=== PATIENT | male | born 1940 | race Caucasian/White ===

== ENCOUNTER 2018-06-01 21:53 | Emergency (ER) | payer OTHER ==
[2018-06-01] MEDS ORDERED: MORPHINE 4 MG/ML SYR ONE (22:21)
[2018-06-01] MEDS ORDERED: FAMOTIDINE 20 MG/2 ML VIAL IV ONE (22:21)
[2018-06-01] MEDS ORDERED: NA CHLORIDE 0.9% 500 ML ONE (22:21)
[2018-06-01] MEDS ORDERED: ONDANSETRON 4 MG/2 ML VIAL ONE (22:21)
[2018-06-01 22:26] LABS: Absolute Lymphocytes (CBC) 0.8 K/uL (0.7-4.9); Absolute Monocytes 0.5 K/uL (0.1-1.3); Absolute Neutrophil 6.6 K/uL (1.8-8.0); Basophils % 0.4 % (0-1.3); Eosinophils % 0.3 % (0-4.4); Hematocrit 35.7 % (39.6-49.0); Lymphocytes % 9.6 % (15.3-44.8); MCH 32.4 pg (27.0-35.0); MCV 90.8 fL (80-100); MPV 6.7 fL (7.6-11.3); Monocytes % 6.2 % (3.3-12.3); RBC Red Blood Cell Count 3.94 M/uL (4.33-5.43)
[2018-06-01 22:44] LABS: Albumin 3.7 g/dL (3.4-5.0); Bilirubin Direct 0.2 mg/dL (0-0.2); Bilirubin Total 0.7 mg/dL (0.2-1.0); Potassium 3.2 mmol/L (3.5-5.1)
[2018-06-01] MEDS ORDERED: cloNIDine HCl 0.1 MG TAB ONE (23:41)
--- NOTE | 2018-06-02 01:42 | ER ---
Nurse's Notes [facility] Name: Tomer Mckeon Age: 78 yrs Sex: Male : 1940 Arrival Date: 06/01/2018 Time: 21:55 Bed 20 Private MD: Diagnosis: Small bowel obstruction Presentation: 06/01 22:07 Presenting complaint: Patient states: he has had vomiting and abdominal pain all bb afternoon and his blood pressure is elevated. Transition of care: patient was not received from another setting of care. Onset of symptoms was June 01, 2018. Risk Assessment: Do you want to hurt yourself or someone else? Patient reports no desire to harm self or others. Initial Sepsis Screen: Does the patient meet any 2 criteria? No. Patient's initial sepsis screen is negative. Does the patient have a suspected source of infection? No. Patient's initial sepsis screen is negative. Care prior to arrival: None. 22:07 Method Of Arrival: Ambulatory bb 22:07 Acuity: PHUONG 2 bb Historical: - Allergies: 22:29 HYDRALAZINE; bb - Home Meds: 22:27 Clonidine Oral [Active]; zolpidem 10 mg Oral tab 1 tab once daily [Active]; Vesicare 5 bb mg oral tab 1 tab once daily [Active]; hydrocodone-acetaminophen 7.5-325 mg Oral tab daily [Active]; amlodipine 5 mg tab 1 tab once daily [Active]; furosemide 40 mg Oral tab 1 tab once daily [Active]; Klor-Con M20 20 mEq Oral TbTQ 1 tab 2 times per day [Active]; folic acid 800 mcg Oral tab 1 tab once daily [Active]; vit C 1000 mg [Active]; tramadol 50 mg Oral tab 1 tab daily [Active]; nortriptyline 25 mg Oral cap 1 cap nightly [Active]; azelastine 137 mcg (0.1 %) nasal spra 2 sprays 2 times per day [Active]; Linzess 290 mcg oral cap 1 cap once daily [Active]; calcium 1200 mg with Vit D 25 mcg daily [Active]; probiotic CD [Active]; valsartan 320 mg oral tab 1 tab once daily [Active]; metoprolol succinate 50 mg oral Tb24 1 tab once daily [Active]; potassium chloride 20 mEq Oral TbER 1 tab 2 times per day [Active]; omeprazole 40 mg Oral cpDR 1 cap 2 times per day [Active]; tamsulosin 0.4 mg oral cp24 2 caps once daily [Active]; Slow Release Iron oral oral [Active]; flecainide 150 mg oral tab [Active]; magnesium 500 mg daily [Active]; sucralfate 1 gram Oral tab 1 tab 4 times per day [Active]; gabapentin 600 mg oral tab 2 tab 3 times per day [Active]; fludrocortisone 0.1 mg oral tab 1 tab once daily [Active]; finasteride 5 mg oral tab 1 tab once daily [Active]; B12 1000 mcg daily [Active]; - PMHx: 06/02 02:25 Hypertension; neuropathy; gastroparesis; lung cancer; bb - PSHx: 02:25 gastric ulcer surgery; Hernia repair; Cholecystectomy; giant fistula; hydrocele R bb testicle; - Immunization history:: Adult Immunizations up to date. - Social history:: Smoking status: Patient/guardian denies using tobacco, Patient/guardian denies using alcohol, street drugs. - Ebola Screening: : No symptoms or risks identified at this time. Screenin/15 22:34 Abuse screen: Denies threats or abuse. Denies injuries from another. Nutritional bs1 screening: No deficits noted. Tuberculosis screening: No symptoms or risk factors identified. Fall Risk None identified. Assessment: 22:31 General: Appears uncomfortable, ill, slender, Behavior is calm, cooperative, bs1 appropriate for age. Pain: Complains of pain in abdomen diffusely. Neuro: Level of Consciousness is awake, alert, obeys commands, Oriented to person, place, time, situation, Appropriate for age. Cardiovascular: Denies chest pain, shortness of breath, Heart tones S1 S2 present Capillary refill < 3 seconds Patient's skin is warm and dry. Respiratory: Airway is patent Trachea midline Respiratory effort is even, unlabored, Respiratory pattern is regular, symmetrical, Breath sounds are clear bilaterally. GI: Abdomen is round non-distended, Pt is actively vomiting bile, Bowel sounds hypoactive in right upper quadrant, left upper quadrant, right lower quadrant and left lower quadrant Abdomen is tender to palpation X 4 quads. Reports lower abdominal pain, upper abdominal pain, nausea, vomiting. : No signs and/or symptoms were reported regarding the genitourinary system. Derm: Skin is intact. Musculoskeletal: Circulation, motion, and sensation intact. Capillary refill < 3 seconds. 23:15 Reassessment: Patient states "I feel a lot better from that morphine." No further bs1 vomiting of bile noted at this time. 23:40 Reassessment: Informed Dr Garcia of Blood pressure of 209/73, gave verbal order to bs1 give clonodine 0.2mg PO x1. 06/02 00:30 Reassessment: pending CT scan results. No further needs at this time. Blood pressure bs1 trending down. 01:30 Reassessment: Patient appears in no apparent distress at this time. Patient and/or bs1 family updated on plan of care and expected duration. Pain level reassessed. Patient is alert, oriented x 3, equal unlabored respirations, skin warm/dry/pink. Dr Garcia at bedside informing patient and family of CT results/POC. 02:30 Reassessment: Requested pain meds for patient prior to NG tube insertion on 2nd bs1 attempt. Morphine 4mg IVP verbal order per Dr Garcia. 03:45 Reassessment: Report given to JOY Bateman at [facility]. Patient will bs1 be going to room [address] [place] [address]. 04:45 Reassessment: Patient appears in no apparent distress at this time. Patient and/or bs1 family updated on plan of care and expected duration. Pain level reassessed. Patient is alert, oriented x 3, equal unlabored respirations, skin warm/dry/pink. Pending transfer to [facility]. Patient denies pain at this time. Patient states feeling better. 05:21 Reassessment: Patient appears in no apparent distress at this time. Patient leaving ER, bs1 administered 4mg Zofran prior to discharge. Vital Signs: 06/01 22:07 BP 244 / 96; Pulse 94; Resp 20 S; Temp 97.8(O); Pulse Ox 100% on R/A; Weight 90.72 kg bb (R); Height 6 ft. 2 in. (187.96 cm) (R); Pain 10/10; 22:59 BP 223 / 78; Pulse 78; Resp 25 S; Pulse Ox 99% on R/A; bs1 23:34 BP 209 / 73; Pulse 78; Resp 20 S; Pulse Ox 99% on R/A; bs1 07/16 00:30 BP 145 / 188; Pulse 84; Resp 16; Pulse Ox 99% on R/A; bs1 01:00 BP 178 / 69; Pulse 85; Resp 18; Pulse Ox 99% on R/A; bs1 01:30 BP 153 / 63; Pulse 88; Resp 18; Pulse Ox 100% on R/A; bs1 02:30 BP 145 / 65; Pulse 81; Resp 18; Temp 98(O); Pulse Ox 100% on R/A; Pain 7/10; bs1 03:30 BP 114 / 54; Pulse 79; Resp 19; Temp 98(O); Pulse Ox 97% on R/A; Pain 4/10; bs1 04:30 BP 117 / 55; Pulse 74; Resp 18; Pulse Ox 99% on R/A; bs1 06/01 22:07 Body Mass Index 25.68 (90.72 kg, 187.96 cm) bb ED Course: 06/01 21:55 Patient arrived in ED. es 22:02 Rodney Garcia MD is Attending Physician. kdr 22:06 Flory Goldsmith RN is Primary Nurse. bs1 22:07 Triage completed. bb 22:07 Arm band placed on Patient placed in an exam room, on a stretcher, on pulse oximetry. bb Family accompanied patient. 22:23 Missed attempt(s): 20 gauge in right antecubital area. Inserted saline lock: 20 gauge lp1 in left antecubital area, using aseptic technique. Blood collected. 22:34 Patient has correct armband on for positive identification. Placed in gown. Bed in low bs1 position. Call light in reach. Side rails up X 1. athletic monitor on. Pulse ox on. NIBP on. Warm blanket given. 23:[address] via stretcher. kw1 06/02 00:09 CT completed. Patient tolerated procedure well. Patient moved back from CT. kw1 00:17 CT Abd/Pelvis - W/Contrast In Process Unspecified. EDMS 02:15 NGT: inserted 12 Fr. via right nare. Removed Unable to verify tube placement. NG tube bs1 removed. Unsuccessful. 02:37 NGT: inserted 12 Fr. via right nare. verified placement of air over stomach, verified bs1 return of gastric contents, to intermittent suction. Patient tolerated Inserted By ALTAGRACIA Nye. 05:00 No provider procedures requiring assistance completed. Patient transferred, IV remains bs1 in place. intact. Administered Medications: 06/01 22:29 Drug: NS 0.9% 500 ml Route: IV; Rate: bolus; Site: left antecubital; bs1 06/02 02:58 Follow up: IV Status: Completed infusion bs1 06/01 22:30 Drug: morphine 4 mg Route: IVP; Site: left antecubital; bs1 06/02 01:29 Follow up: Response: No adverse reaction bs1 06/01 22:30 Drug: Zofran 4 mg Route: IVP; Site: left antecubital; bs1 06/02 01:29 Follow up: Response: No adverse reaction bs1 06/01 22:30 Drug: Pepcid 20 mg Route: IVP; Site: left antecubital; bs1 06/02 01:28 Follow up: Response: No adverse reaction bs1 06/01 23:43 Drug: cloNIDine 0.2 mg Route: PO; bs1 06/02 01:28 Follow up: Response: No adverse reaction; Blood pressure is lowered bs1 02:30 Drug: Flagyl 500 mg Volume: 100 ml; Route: IVPB; Rate: 200 ml/hr; Infused Over: 30 bs1 mins; Site: left antecubital; 05:20 Follow up: IV Status: Completed infusion bs1 02:30 Drug: D5-1/2 NS 1000 ml Route: IV; Rate: 125 ml/hr; Site: left antecubital; bs1 02:58 Follow up: IV Status: Infusion continued bs1 02:30 Drug: ProTONIX 40 mg Route: IVP; Site: left antecubital; bs1 02:58 Follow up: Response: No adverse reaction bs1 02:35 Drug: Lidocaine Gel 2 % 1 ea {Note: viscous lidocaine 2% 15cc, patient drank prior to bs1 NG insertion..} Volume: 15 ml; Route: Mucous Membrane; 02:35 Drug: morphine 4 mg Route: IVP; Site: left antecubital; bs1 02:58 Follow up: Response: No adverse reaction bs1 02:45 Drug: Zosyn 3.375 grams Route: IVPB; Infused Over: 60 mins; Site: left antecubital; bs1 05:20 Follow up: IV Status: Completed infusion bs1 05:19 Drug: Zofran 4 mg Route: IVP; Site: left antecubital; bs1 05:20 Follow up: Response: No adverse reaction bs1 Outcome: 01:42 ER care complete, transfer ordered by . kdr 05:00 Condition: stable bs1 05:21 Transferred by ground EMS to [facility], Transfer form completed. X-rays sent bs1 w/ patient. Note: Report given to [facility] 05:21 Instructed on the need for transfer. 05:23 Patient left the ED. bs1 Signatures: Dispatcher [employer] EDRodney Kaur MD MD kdr Salyer, Edna es Ballard, Brenda RN RN bb Zulema Wise RN RN 1 Tonya Kerr [facility] Flory Goldsmith RN RN bs1
--- NOTE | 2018-06-02 01:43 | EDPHYS ---
Physician Documentation [facility] Name: Tomer Mckeon Age: 78 yrs Sex: Male : 1940 Arrival Date: 06/01/2018 Time: 21:55 Bed 20 Private MD: ED Physician Rodney Garcia HPI: 06/01 22:23 This 78 yrs old Male presents to ER via Ambulatory with complaints of High kdr Blood Pressure, Vomiting, Abdominal Pain. 22:24 The patient presents to the emergency department with nausea, that is mild, that is kdr moderate, vomiting, that is intermittent, abdominal pain, of the abdomen diffusely, described as achy, burning, constant, crampy, steady, vague,\E\. Onset: The symptoms/episode began/occurred suddenly, Last few days. Possible causes: unknown. The symptoms are aggravated by nothing. The symptoms are alleviated by food . Associated signs and symptoms: Pertinent positives: abdominal pain, nausea, vomiting. Severity of symptoms: At their worst the symptoms were moderate in the emergency department the symptoms have improved moderately. The patient has not experienced similar symptoms in the past. The patient has not recently seen a physician. Historical: - Allergies: 22:29 HYDRALAZINE; bb - Home Meds: 22:27 Clonidine Oral [Active]; zolpidem 10 mg Oral tab 1 tab once daily [Active]; Vesicare 5 bb mg oral tab 1 tab once daily [Active]; hydrocodone-acetaminophen 7.5-325 mg Oral tab daily [Active]; amlodipine 5 mg tab 1 tab once daily [Active]; furosemide 40 mg Oral tab 1 tab once daily [Active]; Klor-Con M20 20 mEq Oral TbTQ 1 tab 2 times per day [Active]; folic acid 800 mcg Oral tab 1 tab once daily [Active]; vit C 1000 mg [Active]; tramadol 50 mg Oral tab 1 tab daily [Active]; nortriptyline 25 mg Oral cap 1 cap nightly [Active]; azelastine 137 mcg (0.1 %) nasal spra 2 sprays 2 times per day [Active]; Linzess 290 mcg oral cap 1 cap once daily [Active]; calcium 1200 mg with Vit D 25 mcg daily [Active]; probiotic CD [Active]; valsartan 320 mg oral tab 1 tab once daily [Active]; metoprolol succinate 50 mg oral Tb24 1 tab once daily [Active]; potassium chloride 20 mEq Oral TbER 1 tab 2 times per day [Active]; omeprazole 40 mg Oral cpDR 1 cap 2 times per day [Active]; tamsulosin 0.4 mg oral cp24 2 caps once daily [Active]; Slow Release Iron oral oral [Active]; flecainide 150 mg oral tab [Active]; magnesium 500 mg daily [Active]; sucralfate 1 gram Oral tab 1 tab 4 times per day [Active]; gabapentin 600 mg oral tab 2 tab 3 times per day [Active]; fludrocortisone 0.1 mg oral tab 1 tab once daily [Active]; finasteride 5 mg oral tab 1 tab once daily [Active]; B12 1000 mcg daily [Active]; - PMHx: 06/02 02:25 Hypertension; neuropathy; gastroparesis; lung cancer; bb - PSHx: 02:25 gastric ulcer surgery; Hernia repair; Cholecystectomy; giant fistula; hydrocele R bb testicle; - Immunization history:: Adult Immunizations up to date. - Social history:: Smoking status: Patient/guardian denies using tobacco, Patient/guardian denies using alcohol, street drugs. - Ebola Screening: : No symptoms or risks identified at this time. ROS: 06/01 22:24 Constitutional: Negative for fever, chills, and weight loss, Eyes: Negative for injury, kdr pain, redness, and discharge, ENT: Negative for injury, pain, and discharge, Neck: Negative for injury, pain, and swelling, Cardiovascular: Negative for chest pain, palpitations, and edema, Respiratory: Negative for shortness of breath, cough, wheezing, and pleuritic chest pain, Back: Negative for injury and pain, : Negative for injury, bleeding, discharge, and swelling, MS/Extremity: Negative for injury and deformity, Skin: Negative for injury, rash, and discoloration, Neuro: Negative for headache, weakness, numbness, tingling, and seizure activity. Psych: Negative for depression, anxiety, suicide ideation, homicidal ideation, and hallucinations, Allergy/Immunology: Negative for hives, rash, and allergies, Endocrine: Negative for neck swelling, polydipsia, polyuria, polyphagia, and marked weight changes, Hematologic/Lymphatic: Negative for swollen nodes, abnormal bleeding, and unusual bruising. Abdomen/GI: Positive for abdominal pain, nausea and vomiting, constipation, abdominal cramps, black/tarry stool, Negative for diarrhea, dysphagia, hematemesis, rectal pain, bowel incontinence, flatulence. Exam: 22:24 Constitutional: This is a well developed, well nourished patient who is awake, alert, kdr and in mild to moderate distress. Head/Face: Normocephalic, atraumatic. Eyes: Pupils equal round and reactive to light, extra-ocular motions intact. Lids and lashes normal. Conjunctiva and sclera are non-icteric and not injected. Cornea within normal limits. Periorbital areas with no swelling, redness, or edema. Neck: Trachea midline, no thyromegaly or masses palpated, and no cervical lymphadenopathy. Supple, full range of motion without nuchal rigidity, or vertebral point tenderness. No Meningismus. Chest/axilla: Normal chest wall appearance and motion. Nontender with no deformity. No lesions are appreciated. Cardiovascular: Regular rate and rhythm with a normal S1 and S2. No gallops, murmurs, or rubs. Normal PMI, no JVD. No pulse deficits. Respiratory: Lungs have equal breath sounds bilaterally, clear to auscultation and percussion. No rales, rhonchi or wheezes noted. No increased work of breathing, no retractions or nasal flaring. Abdomen/GI: Soft, non-tender, with normal bowel sounds. No distension or tympany. No guarding or rebound. No evidence of tenderness throughout. Back: No spinal tenderness. No costovertebral tenderness. Full range of motion. Skin: Warm, dry with normal turgor. Normal color with no rashes, no lesions, and no evidence of cellulitis. MS/ Extremity: Pulses equal, no cyanosis. Neurovascular intact. Full, normal range of motion. Neuro: Awake and alert, GCS 15, oriented to person, place, time, and situation. Cranial nerves II-XII grossly intact. Motor strength 5/5 in all extremities. Sensory grossly intact. Cerebellar exam normal. Normal gait. Psych: Awake, alert, with orientation to person, place and time. Behavior, mood, and affect are within normal limits. Vital Signs: 22:07 BP 244 / 96; Pulse 94; Resp 20 S; Temp 97.8(O); Pulse Ox 100% on R/A; Weight 90.72 kg bb (R); Height 6 ft. 2 in. (187.96 cm) (R); Pain 10/10; 22:59 BP 223 / 78; Pulse 78; Resp 25 S; Pulse Ox 99% on R/A; bs1 23:34 BP 209 / 73; Pulse 78; Resp 20 S; Pulse Ox 99% on R/A; bs1 06/02 00:30 BP 145 / 188; Pulse 84; Resp 16; Pulse Ox 99% on R/A; bs1 01:00 BP 178 / 69; Pulse 85; Resp 18; Pulse Ox 99% on R/A; bs1 01:30 BP 153 / 63; Pulse 88; Resp 18; Pulse Ox 100% on R/A; bs1 02:30 BP 145 / 65; Pulse 81; Resp 18; Temp 98(O); Pulse Ox 100% on R/A; Pain 7/10; bs1 03:30 BP 114 / 54; Pulse 79; Resp 19; Temp 98(O); Pulse Ox 97% on R/A; Pain 4/10; bs1 04:30 BP 117 / 55; Pulse 74; Resp 18; Pulse Ox 99% on R/A; bs1 06/01 22:07 Body Mass Index 25.68 (90.72 kg, 187.96 cm) MDM: 06/01 22:24 Data reviewed: vital signs, nurses notes, lab test result(s), radiologic studies. kdr Counseling: I had a detailed discussion with the patient and/or guardian regarding: the historical points, exam findings, and any diagnostic results supporting the discharge/admit diagnosis, lab results, radiology results. 06/02 01:42 Patient medically screened. kdr 06/01 22:12 Order name: Basic Metabolic Panel; Complete Time: 00:10 kdr 06/01 22:12 Order name: CBC with Diff; Complete Time: 00:10 kdr 06/01 22:12 Order name: Creatinine for Radiology; Complete Time: 00:10 kdr 06/01 22:12 Order name: Hepatic Function; Complete Time: 00:10 kdr 06/01 22:12 Order name: Lipase; Complete Time: 00:10 kdr 06/01 22:12 Order name: Urine Microscopic Only kdr 06/01 22:12 Order name: CT Abd/Pelvis - W/Contrast kdr 06/02 02:49 Order name: Urine Dipstick--Ancillary (enter results) mw2 06/02 03:25 Order name: Urine Culture EDAK 06/01 22:12 Order name: IV Saline Lock; Complete Time: 22:39 kdr 06/01 22:12 Order name: Labs collected and sent; Complete Time: 22:39 kdr 06/01 22:12 Order name: Urine Dipstick-Ancillary (obtain specimen); Complete Time: 22:39 kdr 06/02 01:43 Order name: NG Tube; Complete Time: 02:49 kdr Administered Medications: 06/01 22:29 Drug: NS 0.9% 500 ml Route: IV; Rate: bolus; Site: left antecubital; [facility] 06/02 02:58 Follow up: IV Status: Completed infusion [facility] 06/01 22:30 Drug: morphine 4 mg Route: IVP; Site: left antecubital; [facility] 06/02 01:29 Follow up: Response: No adverse reaction [facility] 06/01 22:30 Drug: Zofran 4 mg Route: IVP; Site: left antecubital; [facility] 06/02 01:29 Follow up: Response: No adverse reaction [facility] 06/01 22:30 Drug: Pepcid 20 mg Route: IVP; Site: left antecubital; [facility] 06/02 01:28 Follow up: Response: No adverse reaction [facility] 06/01 23:43 Drug: cloNIDine 0.2 mg Route: PO; [facility] 06/02 01:28 Follow up: Response: No adverse reaction; Blood pressure is lowered bs1 02:30 Drug: Flagyl 500 mg Volume: 100 ml; Route: IVPB; Rate: 200 ml/hr; Infused Over: 30 bs1 mins; Site: left antecubital; 05:20 Follow up: IV Status: Completed infusion bs1 02:30 Drug: D5-1/2 NS 1000 ml Route: IV; Rate: 125 ml/hr; Site: left antecubital; bs1 02:58 Follow up: IV Status: Infusion continued bs1 02:30 Drug: ProTONIX 40 mg Route: IVP; Site: left antecubital; bs1 02:58 Follow up: Response: No adverse reaction bs1 02:35 Drug: Lidocaine Gel 2 % 1 ea {Note: viscous lidocaine 2% 15cc, patient drank prior to bs1 NG insertion..} Volume: 15 ml; Route: Mucous Membrane; 02:35 Drug: morphine 4 mg Route: IVP; Site: left antecubital; bs1 02:58 Follow up: Response: No adverse reaction bs1 02:45 Drug: Zosyn 3.375 grams Route: IVPB; Infused Over: 60 mins; Site: left antecubital; bs1 05:20 Follow up: IV Status: Completed infusion bs1 05:19 Drug: Zofran 4 mg Route: IVP; Site: left antecubital; bs1 05:20 Follow up: Response: No adverse reaction bs1 Disposition: 06/02/18 01:42 Transfer ordered to Other Acute Care Facility. Diagnosis is Small bowel obstruction. - Reason for transfer: Higher level of care. - Accepting physician is A. - Condition is Fair. - Problem is new. - Symptoms have improved. Signatures: Dispatcher [employer] EDAK Rodney Garcia MD MD kdr Ballard, Brenda, RN RN bb Flory Goldsmith, JOY RN bs1 Corrections: (The following items were deleted from the chart) 02:15 02:08 Chest Single View+[email or web address] ordered. [facility] EDAK 05:23 01:42 06/02/2018 01:42 Transfer ordered to Other Acute Care Facility. Diagnosis is bs1 Small bowel obstruction. Reason for transfer: Higher level of care. Accepting physician is A. Condition is Fair. Problem is new. Symptoms have improved. kdr
[2018-06-02] MEDS ORDERED: METRONIDAZOLE 500mg IVPB 500 MG/100 ML BAG IV ONE (02:19)
[2018-06-02] MEDS ORDERED: PANTOPRAZOLE 40 MG INJ ONE (02:19)
[2018-06-02] MEDS ORDERED: PIPER/TAZO/NS 3.375gm 3.375 GM/100 ML BAG ONE (02:19)
[2018-06-02] MEDS ORDERED: D5 0.45 NS 1,000 ML IV ONE (02:20)
[2018-06-02] MEDS ORDERED: MORPHINE 4 MG/ML SYR ONE (02:22)
[2018-06-02] MEDS ORDERED: LIDOCAINE VISCOUS 2% SOLN 15 ML UDC ONE ×2 (02:33→02:38)
[2018-06-02 03:23] LABS: Urine Bacteria <20 /HPF (NONE SEEN); Urine Culture Reflex Order REFLEXED; Urine RBC 20-50 /HPF (NONE SEEN)
[2018-06-02 03:57] LABS: Urine Blood 2+ (NEG); Urine Glucose NEGATIVE (NEG); Urine Protein 1+ (NEG); Urine Specific Gravity 1.015 (1.005-1.030)
[2018-06-02] MEDS ORDERED: ONDANSETRON 4 MG/2 ML VIAL ONE (05:18)
[2018-06-02 05:33] VITALS: TEMP 98
[2018-06-02 05:35] VITALS: BP 117/55; O2SAT 99
--- NOTE | 2018-06-02 09:26 | RAD REPORT ---
EXAM DESCRIPTION: CT - Abdomen Pelvis W Contrast - 06/02/2018 2:28 am CLINICAL HISTORY: Abdominal pain with vomiting COMPARISON: none. TECHNIQUE: Computed axial tomography of the abdomen pelvis was obtained. 100 cc Isovue-300 was admin istered intravenously. Oral contrast was not requested which limits evaluation of bowel.A preliminary report was generated by [employer] and reviewed prior to this dictation All CT scans are performed using dose optimization technique as appropriate and may include automated exposure control or mA/KV adjustment according to patient size. FINDINGS: The gallbladder has been removed. Dilatation of the intra and extrahepatic biliary tree is seen. The liver, spleen, pancreas, adrenal and kidneys appear unremarkable. Postsurgical changes of a right hemicolectomy are present. Multiple loops of jejunum are mildly dilat ed the ileum is normal caliber. A 5 x 4 centimeter fluid collection is present within the anterior lower right pelvis. Air bubbles ar e not present. 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 The AMBER is patent IMPRESSION: Mild dilatation of jejunum could either represent a partial mechanical obstruction or en teritis. Dilatation of the biliary tree may be physiologic in this patient status post cholecystectomy. 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 5 x 4 fluid collection within the anterior right pelvis may represent a chronic hematoma/ seroma. An abscess although possible is considered less likely
== END 2018-06-02 05:23 ==
LOC: ER 21:53
DX: K56.609 Unspecified intestinal obstruction, unspecified as to partial versus complete obstruction (principal); I10 Essential (primary) hypertension; Z85.118 Personal history of other malignant neoplasm of bronchus and lung; Z88.8 Allergy status to other drugs, medicaments and biological substances
CPT/HCPCS: 36415; 74177; 80048; 80076; 83690; 85025; 87086; 87088; 96361; 96365; 96366; 96375; 99285; C9113; J2405 ×2; J2543; Q9967; 81003; 81015; 96368

== ENCOUNTER 2020-04-26 23:18 | Inpatient (IN) | payer MEDICARE, OTHER ==
--- OUTSIDE RECORDS SUMMARY | 2020-04-26 23:21 | XMS REPORT | Clinical Summary ---
:1940 Author Organization [facility] Address [address] [place] [address] Care Team Providers Name Role Phone Ahmet Tran Primary Care Provider Allergies No Known Allergies Medications Medication Sig Dispensed Refills Start Date End Date Status rivaroxaban (XARELTO) 15 Take by mouth. 0 Active mg Tab tablet flecainide (TAMBOCOR) 150 Take 150 mg by 0 Active MG tablet mouth 2 (two) times daily. fludrocortisone Take 0.1 mg by 0 Active (FLORINEF) 0.1 mg tablet mouth daily. gabapentin (NEURONTIN) Take 600 mg by 0 Active 600 MG tablet mouth 2 (two) times daily . HYDROcodone-acetaminophen Take 1 tablet 0 Active (NORCO 7.5-325) 7.5-325 by mouth every mg per tablet 6 (six) hours as needed for Pain. lisinopril Take 10 mg by 0 Activ e (PRINIVIL,ZESTRIL) 10 MG mouth 2 (two) tablet times daily . omeprazole (PRILOSEC) 40 Take 40 mg by 0 Active MG capsule mouth 2 (two) times daily . temazepam (RESTORIL) 15 Take 15 mg by 0 Active mg capsule mouth every night as needed for Sleep. diltiazem (CARDIZEM) 120 Take 120 mg by 0 Active MG tablet mouth 4 (four) times daily. oxybutynin (DITROPAN) 5 Take 5 mg by 0 Active MG tablet mouth once. Active Problems Not on file Social History Tobacco Use Types Packs/Day Years Used Date Former Smoker Alcohol Use Drinks/Week oz/Week Comments No Sex Assigned at Date Recorded Not on file Job Start Date Occupation Industry Not on file Not on file Not on file Travel History Travel Start Travel End No recent travel history available. Last Filed Vital Signs Not on file Plan of Treatment Not on file Results Not on fileafter 04/26/2019 Insurance Payer Benefit Plan / Group Subscriber ID Type Phone A ddress [employer] xxxxxxxxx Maps Contracted (Work) [id number]
--- OUTSIDE RECORDS SUMMARY | 2020-04-26 23:21 | XMS REPORT | Clinical Summary ---
:1940 Author Organization [facility] Address [address] [place] [address] Care Team Providers Name Role Phone Asked, No Pcp Primary Care Provider Unavailable Allergies Active Allergy Reactions Severity Noted Date Comments Hydralazine Itching 05/30/2018 Medications Medication Sig Dispensed Refills Start Date End Date Status amLODIPine (NORVASC) amlodipine 5 mg 0 Active 5 mg tablet tablet azelastine (ASTELIN) azelastine 137 mcg 0 Active 137 mcg (0.1 %) nasal (0.1 %) nasal spray spray aerosol clonIDINE (CATAPRES) clonidine HCl 0.1 mg tablet 0 Active 0.1 MG tablet Take 1 tablet twice a day by oral route as needed. dronabinol (MARINOL) dronabinol 2.5 mg capsule 0 Active 2.5 MG capsule Take 1 capsule every day by oral route for 90 days. finasteride (PROSCAR) finasteride 5 mg tablet 0 Active 5 mg tablet Take 1 tablet every day by oral route for 90 days. flecainide (TAMBOCOR) flecainide 150 mg tablet 0 Active 150 MG tablet Take 1/2 tablet once a day by oral route for 90 days fludrocortisone fludrocortisone 0.1 mg tablet 0 Active (FLORINEF) 0.1 mg Take 1 tablet every day by oral route for 90 days tablet furosemide (LASIX) 40 furosemide 40 mg tablet 0 Active mg tablet TAKE 1 TABLET BY MOUTH DAILY gabapentin gabapentin 600 mg tablet 0 Active (NEURONTIN) 600 mg Take 2 tablets 3 times a day by oral route for 90 days. tablet HYDROcodone-acetamino hydrocodone 7.5 mg-acetaminophen 325 mg tablet 0 Active phen (NORCO) 7.5-325 Take 1 tablet every day by oral route for 30 day s. mg per tablet linaclotide (LINZESS) Linzess 290 mcg capsule 0 Active 290 mcg capsule Take 1 capsule every day by oral route for 90 days. metoprolol succinate metoprolol succinate ER 50 m g tablet,extended release 24 hr 0 Active XL (TOPROL-XL) 50 mg Take 1 tablet every day by oral route for 90 day s. 24 hr tablet sucralfate (CARAFATE) sucralfate 1 gram 0 Active 1 gram tablet tablet tamsulosin (FLOMAX) tamsulosin 0.4 mg capsule 0 Active 0.4 mg Take 1 capsule every day by oral route for 90 days. capsule,extended release 24hr valsartan (DIOVAN) valsartan 320 mg tablet 0 Active 320 MG tablet Take 1 tablet every day by oral route for 90 days. zolpidem (AMBIEN) 10 zolpidem 10 mg tablet 0 Active mg tablet Take 1 tablet every day by oral route for 30 days. potassium chloride Klor-Con M20 mEq tablet,extended release 0 Active (KLOR-CON M20) 20 MEQ Take 1 tablet every day by oral route for 90 da ys. CR tablet rivaroxaban (XARELTO) Take 20 mg by mouth. 0 Active 20 mg tablet omeprazole (PriLOSEC) Take 40 mg by mouth 0 Active 40 MG capsule daily. cyanocobalamin Take 1,000 mcg by 0 Active (VITAMIN B-12) 1000 mouth daily. MCG tablet calcium carbonate Chew 1 tablet daily. 0 Active (TUMS) 200 mg calcium (500 mg) chewable tablet magnesium gluconate Take 1,000 mg by 0 Active (MAGONATE) 500 mg mouth daily. tablet tablet ferrous sulfate 325 Take 325 mg by mouth 0 Active (65 FE) MG tablet daily with breakfast. Active Problems Problem Noted Date Mark cell carcinoma Lung disease Social History Tobacco Use Types Packs/Day Years Used Date Never Smoker Smokeless Tobacco: Never Used Sex Assigned at Date Recorded Not on file Job Start Date Occupation Industry Not on file Not on file Not on file Travel History Travel Start Travel End No recent travel history available. Last Filed Vital Signs Not on file Plan of Treatment Health Maintenance Due Date Last Done Comments SHINGLES VACCINES (#1) 1990 65+ PNEUMOCOCCAL VACCINE (1 of 2 - PCV13) 2005 INFLUENZA VACCINE 06/18/2020 Results Not on fileafter 04/26/2019 Advance Directives For more information, please contact: [phone] Type Date Recorded Patient Technology Education Teacher Explanati on Advance Directives, Living Will and Medical Power of Thermostat Maker
--- OUTSIDE RECORDS SUMMARY | 2020-04-26 23:36 | XMS REPORT | Continuity of Care Document ---
:1940 Author Organization [employer] Care Team Providers Name Role Phone [employer] Unavailable Un available Problems Problem Status Onset Classification Date Comments Sourc e Date Reported Acute kidney 11/25/19 06/01/2019 MH failure, 19 [place] unspecified SYNCOPE/LOW BP Active 11/10/20 MH 18 [place] ORTHOSTATIC Active 11/10/20 MH HYPOTENSION, NAZANIN, 18 [place] NEAR SYNCO Partial 06/13/20 12/22/2018 [place] intestinal [place] obstruction, unspecified as to cause SBO Active 06/02/20 MH [place] 18 [place] PASSED Active 09/01/20 MH [place] OUT/STOPPED 16 [place] BREATHING SYNCOPE Active 09/01/20 MH [place] 16 [place] ABD PAIN Active 10/05/20 MH [place] 15 [place] WEAKNESS Active 06/11/20 MH [place] 15 [place] WEAKNESS X Active 06/11/20 MH [place] 15 [place] WEAKNESS Active 06/11/20 MH [place] X 15 [place] WEAKNESS Active 06/11/20 MH [place] X 15 [place] SYNCOPE AND Active 05/16/20 MH [place] COLLAPSE, 15 [place] 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 Active 05/11/20 MH O PID SKIN UL 15 [facility] ABD PAIN Active 04/06/20 MH [place] UNSPCF,LEUKOCYTOS [place] NOS,SEPTICE LOWER ABDOMINAL Active 04/06/20 MH S ugar PAIN 15 [place] ABDMNAL PAIN Active 04/06/20 MH [place] UNSPCF, 15 [place] LEUKOCYTOSIS NOS, S ABDOMINAL PAIN Active 03/28/20 MH Sarkar gar 15 [place] Paroxysmal atrial 12/22/2018 M H [place] fibrillation [place] Hypertensive 12/22/2018 MH Sug ar urgency Land Enlarged prostate 12/22/2018 M H [place] without lower [place] urinary tract symptoms Pure 12/22/2018 MH [place] hypercholesterole [place] heidi, unspecified Personal history 12/22/2018 [place] of antineoplastic [place] chemotherapy Orthostatic 06/01/2019 MH hypotension [place] Dehydration 06/01/2019 [place] Personal history 06/01/2019 MH of other [place], M malignant H [place] neoplasm of [place] bronchus and lung Unspecified 06/01/2019 atrial [place] fibrillation Essential 06/01/2019 (primary) [place], M hypertension H [place] Gastroparesis 06/01/2019 [place] Personal history 06/01/2019 MH of peptic ulcer [place] disease Polyneuropathy, 06/01/2019 unspecified [place],M [place] Personal history 06/01/2019 MH of other [place] malignant neoplasm of skin Personal history 06/01/2019 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[place],M dependence [facility] [place] Anemia, 06/01/2019 unspecified [place] 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, 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 Atrial Resolved Problem 06/01/2019 OPID fibrillation [place] (disorder) [place], [place], M [facility] [place] Cholesterol Resolved Problem 06/01/2019 OPID (substance) [place], [place], M H [place] 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 [facility], (disorder) [place] ,M [place] Hypertensive Resolved Problem 06/01/2019 OPI D disorder, [place] systemic arterial [place], (disorder) [place] ,M H [place] Neuropathy Resolved Problem 06/01/2019 OPID (disorder) [place], [place], M [facility] [place] Malignant Resolved Problem 06/01/2019 OPID neoplasm of skin Sug ar (disorder) [facility], [place], M H [place] ABDMNAL PAIN Active Suga r UNSPCF SITE [place] LEUKOCYTOSIS NOS Active [place] SEPTICEMIA NOS Active Sarkar gar [place] SYNCOPE AND Active Sugar COLLAPSE Land PERITONEAL Active Sugar ABSCESS [place] ANEMIA NOS Active [place] MALAISE AND Active Sugar FATIGUE NEC [place] OTHER INTESTINAL Active Sugar OBSTRUCTION [place] ORTHOSTATIC Active HYPOTENSION [place] ACUTE KIDNEY Active FAILURE, [place] UNSPECIFIED SYNCOPE AND Active COLLAPSE [place] Medications Medication Details Route Status Patient Ordering Order Source Instructions Provider Date rivaroxaban 20 MG 20 mg, PO, Active Oral Tablet Daily, 0 2017 [Xarelto] Refill(s) Benzocaine 0.1 Notes: (Same Inactive MG/MG Oral Gel As: Maximum 2017 [place] [Anbesol] Strength PM Orajel ) Nortriptyline Notes: (Same No Longer as:Pamelor, Active 2017 [facility] Aventyl) Finasteride Notes: (Same No Longer as: Proscar) Active 2017 [facility] "Do Not Crush" Women of childbearing age should not touch or handle broken tablets ferrous sulfate Notes: Give No Longer with food. Active 2017 [facility] "Do Not Crush" Aluminum Hydroxide Notes: No Longer / Magnesium (aluminum Active 2017 [facility] Hydroxide / hydroxide-magn Simethicone esium hyd-simethicon e [phone]/5 ml 30 ml ud SANDRA) Sucralfate Notes: May No Longer interfere Active 2017 [facility] w/enteral feeds - Take 1 hr before or 2 hr after antacids, dairy pdt, meals & minerals - On empty stomach. For patients unable to swallow tablet, dissolve in 10mL - 30mL of water or juice and stir before giving. (Same As: Carafate) Xarelto 20 mg, Route: No Longer PO, Drug form: Active 2017 [facility] TAB, Daily, Dosing Weight 90.909, kg, Start date: 11/11/18 9:00:00 PREDATORY HUNTER, Duration: 30 day, Stop date: 12/10/18 9:00:00 PREDATORY HUNTER Prilosec 40 mg, Route: Inactive PO, Drug form: 2017 [facility] DRC, BID, Dosing Weight 90.909, kg, Start date: 11/11/18 9:00:00 PREDATORY HUNTER, Duration: 30 day, Stop date: 12/10/18 17:00:00 PREDATORY HUNTER metoprolol Notes: (Same No Longer extended release as: Toprol XL) Active 2017 [facility] Do Not Crush lactobacillus Notes: Same as No Longer H rhamnosus GG Culturelle [facility] Notes: (Same No Longer as: Neurontin) Active 2017 [facility] Slow Release Iron 45 mg, 1 tab, Inactive 45 mg oral tablet, Route: PO, [place] extended release Drug form: ERTAB, BID, Dosing Weight 90.909, kg, Start date: 11/11/18 9:00:00 PREDATORY HUNTER, Duration: 30 day, Stop date: 12/10/18 17:00:00 PREDATORY HUNTER Vitamin B12 Notes: (Same No Longer As: Vitamin Active 2017 [facility] B12) Calcium Carbonate Notes: (Same No Longer 1250 MG / As: Vin-D, Active 2017 [facility] Cholecalciferol OsCal-D, 200 UNT Oral Oyster Tablet Calcium) lactobacillus 1 tab, Route: Inactive acidophilus PO, Drug Form: 2017 [facility] TAB, Dosing Weight 90.909, kg, Daily, Start date: 11/11/18 9:00:00 PREDATORY HUNTER, Duration: 30 day, Stop date: 12/10/18 9:00:00 PREDATORY HUNTER Azelastine Notes: No Longer hydrochloride (azelastine Active 2017 [facility] ast 0.137 MG/ACTUAT 137 Metered Dose Nasal microgram/inh [place] 30 ml nasal SPR) Non-formulary drug. Same As: Astelin) Protonix Notes: Tablet No Longer should not be Active 2017 [facility] chewed or crushed. (Same as: Protonix) Meclizine Notes: (Same No Longer as: Antivert) Active 2017 [facility] Clonidine Notes: (Same No Longer Hydrochloride 0.1 As: Catapres) Active 2017 MG Oral Tablet linaclotide 290 microgram, Active PO, Daily, PRN 2017 [facility] 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, 0 Refill(s) Slow Release Iron 45 mg = 1 tab, No Longer 11/11 45 mg oral tablet, PO, BID, 0 Active [place] extended release Refill(s) Ibuprofen 100.4 F, 0 Active Refill(s) 2017 meclizine 12.5 mg 12.5 mg = 1 No Longer oral tablet tab, PO, TID, Active 2017 [facility] ast PRN as needed for dizziness, # 60 tab, 0 Refill(s) Nortriptyline 25 mg, PO, No Longer Bedtime, [address] [facility] Refill(s) gabapentin 1,200 mg, PO, No Longer BID, [address] [facility] Refill(s) Hydrochlorothiazid 1 tab, PO, Active e 12.5 MG / Daily, # 90 2017eas [place] Olmesartan tab, 1 medoxomil 40 MG Refill(s) Oral Tablet rivaroxaban 20 MG 20 mg = 1 tab, No Longer 11/11 Oral Tablet PO, Daily, # Active [address] [facility] [address] [Xarelto] 30 tab, 3 Refill(s) metoprolol 25 mg 25 mg = 1 tab, No Longer oral tablet, PO, BID, 0 [facility] extended release Refill(s) Morphine Notes: (Same No Longer as:MORPhine Active 2017 [facility] Sulfate) Acetaminophen 325 Notes: (Same No Longer MG / Hydrocodone as: [place] Active 2017 [facility] Bitartrate 5 MG 325/5) Do not Oral Tablet [[place] exceed 4gm/day 5/325] of acetaminophen. Sodium Chloride 1,000 mL, No Longer 0.9% IV 1,000 mL Rate: 100 2017 [facility] ml/hr, Infuse over: 10 hr, Route: IV, Dosing Weight 90.909 kg, Total Volume: 1,000, Start date: 11/11/18 3:55:00 PREDATORY HUNTER, Duration: 30 day, Stop date: 12/11/18 3:54:00 PREDATORY HUNTER, 2.19, m2 Ondansetron Notes: (Same No Longer as: Zofran) 2017 [facility] MEDICATION WASTE Product Size: 4 mg Product Wasted: ___ mg Glucagon 1 mg, Route: No Longer IM, Drug form: 2017 [facility] PDR/INJ, PRN, Dosing Weight 90.909, kg, PRN Blood Glucose Results, Start date: 11/11/18 3:55:00 PREDATORY HUNTER, Duration: 30 day, Stop date: 12/11/18 3:54:00 PREDATORY HUNTER Dextrose 50% 25 gm, 50 mL, No Longer Syringe Route: IVP, 2017 [facility] Drug Form: INJ, Dosing Weight 90.909, kg, PRN, PRN Blood Glucose Results, Start date: 11/11/18 3:55:00 PREDATORY HUNTER, Duration: 30 day, Stop date: 12/11/18 3:54:00 PREDATORY HUNTER Saline Flush 0.9% Notes: (Same No Longer as: BD Active 2017 [facility] Posiflush) Sodium Chloride 1,000 mL, Inactive 0.9% (Bolus) IV Infuse Over: 1 [place] hr, Route: IV, ONCE, Priority: STAT, Dosing Weight 90.909 kg, Start date: 11/10/18 23:49:00 PREDATORY HUNTER, Stop date: 11/10/18 23:49:00 PREDATORY HUNTER Sodium Chloride 1,000 mL, Inactive 0.9% (Bolus) IV 1,000 ml/hr, 2018 [facility] Infuse Over: 1 hr, Route: IV, ONCE, Priority: STAT, Dosing Weight 90.909 kg, Start date: 11/10/18 23:45:00 PREDATORY HUNTER, Stop date: 11/10/18 23:45:00 PREDATORY HUNTER Fentanyl 50 microgram, Inactive Route: IVP, 2017 ONCE, Dosing Weight 90.909, kg, Priority: STAT, Start date: 11/10/18 23:45:00 PREDATORY HUNTER, Stop date: 11/10/18 23:45:00 PREDATORY HUNTER Amlodipine Notes: (Same Inactive [place] as: Norvasc) 2017 [place] Docusate Sodium Notes: (Same Inactive [place] 100 MG Oral as: Colace) 2018 [place] Capsule [Colace] (Do Not Crush) Fludrocortisone Notes: (Same Inactive [place] as: Florinef 2017 [place] Acetate) Give with food. Finasteride Notes: (Same Inactive Sug ar as: Proscar) 2017 [place] "Do Not Crush" Women of childbearing age should not touch or handle broken tablets ferrous sulfate Notes: Give Inactive [place] with food. 2018 [place] "Do Not Crush" Vitamin B12 Notes: (Same Inactive Sug ar As: Vitamin 2017 [facility] B-12) Flecainide Notes: (Same No Longer Sug ar as: Tambocor) Active 2017 [place] tamsulosin Notes: (Same No Longer Sug ar As: Flomax) Active 2017 [place] "Do Not Crush" Protonix Notes: Tablet No Longer [place] should not be Active 2017 chewed or crushed. (Same as: Protonix) Prilosec 40 mg, Route: Inactive Sugar PO, Drug form: 2017 [facility] DRC, BID, Dosing Weight 87.727, kg, Start date: 06/03/18 17:00:00 CDT, Duration: 30 day, Stop date: 07/03/18 9:00:00 CDT 24 HR Metoprolol Notes: (Same No Longer [place] Tartrate 50 MG as: Toprol XL) Active [address] [place] Extended Release May split Tablet [Toprol] tab, but do not crush. valsartan Notes: Same as No Longer Sarkar gar Diovan Active 2017 [facility] gabapentin 400 MG Notes: (Same No Longer Sugar Oral Capsule as: Neurontin) Active 2017 [facility] [Neurontin] Sucralfate Notes: May No Longer Sugar interfere Active 2017 [facility] w/enteral feeds - Take 1 hr before or 2 hr after antacids, dairy pdt, meals & minerals - On empty stomach. For patients unable to swallow tablet, dissolve in 10mL - 30mL of water or juice and stir before giving. (Same As: Carafate) Clonidine Notes: (Same No Longer [place] Hydrochloride 0.1 As: Catapres) Active 2017 MG Oral Tablet Amlodipine Notes: (Same No Longer Sug ar as: Norvasc) Active 2017 [place] zolpidem Notes: (Same No Longer [place] As: Ambien) Active 2017 [facility] Ambien 10 mg, Route: Inactive Sugar PO, Bedtime, 2017 Dosing Weight 87.727, kg, PRN as needed for insomnia, Start date: 06/02/18 22:33:00 CDT, Duration: 30 day, Stop date: 07/02/18 22:32:00 CDT potassium chloride Notes: Infuse Inactive Sugar at a rate of 2017 10 mEq/hr. (Same as: KCL) Labetalol 10 mg, 2 mL, No Longer Suga r Route: IV, Active 2017 [facility] Drug form: INJ, Q4H, Dosing Weight 87.727, kg, PRN Hypertension, Start date: 06/02/18 15:59:00 CDT, Duration: 30 day, Stop date: 07/02/18 15:58:00 CDT Potassium Chloride 40 mEq, Route: Inactive 06/02 [place] IV, ONCE, 2017 Dosing Weight 87.727, kg, Start date: 06/02/18 15:45:00 CDT, Stop date: 06/02/18 15:45:00 CDT finasteride 5 mg 5 mg = 1 tab, No Longer Sugar oral tablet PO, Bedtime, # Active 2017 [place] 30 tab, 0 Refill(s) Probiotic Formula 1 cap, PO, Active [place] Daily, 0 2017 [place] Refill(s) Calcium 500+D 1 tab, CHEW, No Longer Sugar BID, 0 Active 2017 [place] Refill(s) ferrous sulfate 325 mg = 1 No Longer Sugar 325 MG Oral Tablet tab, PO, Active 2017 [place] Daily, 0 Refill(s) Amlodipine 5 mg, PO, PRN, Active Sug ar 0 Refill(s) 2018 [place] Clonidine 0.1 mg = 1 No Longer Sugar Hydrochloride 0.1 tab, PO, BID, Active 2017 [place] MG Oral Tablet PRN Hypertension, 0 Refill(s) valsartan 320 mg 320 mg = 1 No Longer Sugar oral tablet tab, PO, Active 2017 [place] Daily, # 30 tab, 0 Refill(s) Enoxaparin Notes: (Same No Longer Sug ar as: Lovenox) Active 2017 [place] phenol Notes: No Longer [place] Chloraseptic Active 2017 [place] (Same as: Chloraseptic, Sore Throat [place]) WASTE: F/P - Black; E - Municipal Trash Bin Saline Flush 0.9% Notes: (Same No Longer [place] as: BD Active 2017 [place] Posiflush) Morphine 2 mg, 1 mL, No Longer Sugar Route: IVP, Active 2017 Drug form: SOLN, Q4H, Dosing Weight 87.727, kg, PRN Pain Score 7-10, Start date: 06/02/18 8:09:00 CDT, Duration: 30 day, Stop date: 07/02/18 8:08:00 CDT Ondansetron Notes: (Same No Longer Sarkar gar as: Zofran) Active 2017 [place] MEDICATION WASTE Product Size: 4 mg Product Wasted: ___ mg Sodium Chloride 1,000 mL, No Longer S ugar 0.9% IV 1,000 mL Rate: 100 Active 2017 [place] ml/hr, Infuse over: 10 hr, Route: IV, Dosing Weight 87.727 kg, Total Volume: 1,000, Start date: 06/02/18 8:09:00 CDT, Duration: 30 day, Stop date: 07/02/18 8:08:00 CDT, 2.15, m2 potassium 2 pack, PO, Active Sugar phosphate-sodium BID, OK to 2018 [place] phosphate 250 substitute for mg-280 mg-160 mg any equivalent oral powder for oral reconstitution phosphorus replacement (tab or powder form), # 100 ea, 0 Refill(s) Lactulose 667 10 gm = 15 mL, Active Sugar MG/ML Oral PO, BID, PRN 2018 [place] Solution as needed for constipation, X 14 day, # 1 btl, 0 Refill(s) gabapentin 400 MG 800 mg = 2 Active Sugar Oral Capsule cap, PO, TID, 2018 [place] [Neurontin] # 180 caplet, 0 Refill(s) Labetalol 20 mg, 4 mL, Inactive Sugar Route: IVP, 2017 Drug form: INJ, Q6H, Dosing Weight 86.364, kg, Start date: 04/13/18 12:00:00 CDT, Duration: 30 day, Stop date: 05/13/18 6:00:00 CDT Acetaminophen 325 Notes: (Same Inactive Sugar MG / Hydrocodone as: [place] 2018 [place] Bitartrate 5 MG 325/5) Do not Oral Tablet [[place] exceed 4gm/day 5/325] of acetaminophen. Cardizem CD Notes: (Same Inactive Sug ar as: Cardizem 2018 [place] CD) Do Not Crush Before meals. tamsulosin Notes: (Same No Longer Sug ar As: Flomax) Active 2017 [place] "Do Not Crush" Lactulose 667 Notes: (Same No Longer Sugar MG/ML Oral as:Chronulac) Active 2017 [facility] Solution gabapentin 800 MG Notes: (Same No Longer Sugar Oral Tablet as: Neurontin) Active 2017 [place] [Neurontin] Sucralfate Notes: May No Longer Sugar interfere Active 2017 [facility] w/enteral feeds - Take 1 hr before or 2 hr after antacids, dairy pdt, meals & minerals - On empty stomach. For patients unable to swallow tablet, dissolve in 10mL - 30mL of water or juice and stir before giving. (Same As: Carafate) Dulcolax Laxative Notes: (Same Inactive [place] As: Dulcolax, 2017 [place]-Lax) Prilosec 40 mg, Route: No Longer Suga r PO, Drug form: Active 2017 [facility] DRC, BID, Dosing Weight 86.364, kg, Start date: 04/12/18 9:00:00 CDT, Duration: 30 day, Stop date: 05/11/18 17:00:00 CDT Fludrocortisone Notes: (Same No Longer H Sugar as: Florinef Active 2017 [facility] Acetate) Give with food. Azelastine 137 microgram, No Longer S ugar hydrochloride 1 spray, Active 2017 [facility] 0.137 MG/ACTUAT Route: NASAL, Metered Dose Nasal Drug Form: [place] SPRY, Dosing Weight 86.364, kg, BID, Start date: 04/12/18 9:00:00 CDT, Duration: 30 day, Stop date: 05/11/18 17:00:00 CDT gabapentin 600 MG Notes: (Same Inactive [place] Oral Tablet as: Neurontin) 2017 tamsulosin 0.4 mg 0.4 mg = 1 Active Sugar oral capsule cap, PO, 2017 Bedtime, # 30 cap, 0 Refill(s) Protonix Notes: Tablet No Longer [place] should not be Active 2017 chewed or crushed. (Same as: Protonix) Zolpidem tartrate 10 mg = 1 tab, Active Sugar 10 MG Oral Tablet PO, Bedtime, 2018 L and [Ambien] PRN for sleep, 0 Refill(s) Docusate 240 mg, PO, Active Sugar Daily, PRN as 2018 [place] needed for constipation, 0 Refill(s) magnesium oxide 500 mg = 1 Active Sarkar gar 500 mg oral tablet tab, PO, 2018 [place] Daily, # 10 tab, 0 Refill(s) Vitamin B12 1000 1,000 Active [place] mcg oral tablet microgram = 1 [address] [place] tab, PO, Daily, # 30 tab, 0 Refill(s) gabapentin 600 MG See No Longer S ugar Oral Tablet Instructions, Active 2017 [place] 2 tab PO TID, 0 Refill(s) Tetrahydrocannabin See Active Sarkar gar ol Instructions, 2018 [place] 2.4mg 1 tablet at bedtime, 0 Refill(s) sucralfate 1 g 1 gm = 1 tab, Active Sugar oral tablet PO, QID, # 120 2017 [place] tab, 0 Refill(s) metoprolol 50 mg = 1 tab, Active Sug ar tartrate 50 mg PO, BID, # [address] [place] oral tablet tab, 0 Refill(s) valsartan 320 mg 320 mg = 1 No Longer Sugar oral tablet tab, PO, Active 2017 [place] Daily, # 30 tab, 0 Refill(s) amLODIPine 10 mg 10 mg = 1 tab, Active Sugar oral tablet PO, Daily, # 2018 [place] 90 tab, 0 Refill(s) Hydralazine Notes: (Same No Longer Sarkar gar as: Active 2017 [place] Apresoline) Push over 5 minutes Trazodone Notes: (Same No Longer [place] Hydrochloride 50 As: Desyrel) Active [address] [place] Oral Tablet Flecainide Notes: (Same No Longer Sug ar as: Tambocor) Active 2017 [place] Simethicone Notes: (Same No Longer Sarkar gar as: Mylicon) Active 2017 [place] Tessalon Perles Notes: (Same No Longer H Sugar As: Tessalon Active 2017 [place]) "Do Not Crush" Bisacodyl Notes: (Same No Longer [place] As: Dulcolax, Active 2017 [place]isco-Lax) Diphenhydramine Notes: (Same No Longer H Sugar as: Benadryl) Active 2017 Ondansetron Notes: (Same No Longer Sarkar gar as: Zofran) Active 2017 MEDICATION WASTE Product Size: 4 mg Product Wasted: ___ mg Saline Flush 0.9% Notes: (Same No Longer [place] as: BD Active 2017 [facility] Posiflush) Hydrocortisone Notes: (Same No Longer [place] as: Active 2017 [place] Solu-CORTEF) Streptococcus 0.5 mL, Route: Inactive Sugar pneumoniae IM, ONCALL, 2017 serotype 1 Start date: capsular antigen 04/11/18 diphtheria [id number] 19:34:29 CDT, protein conjugate Stop date: / 05/11/18 Streptococcus 19:29:29 CDT pneumoniae serotype 14 capsular antigen diphtheria [id number] protein conjugate vaccine / Streptococcus pneumoniae serotype 18C capsular antigen d Saline Flush 0.9% Notes: (Same No Longer [place] as: BD Active 2017 [facility] Posiflush) Saline Flush 0.9% Notes: (Same No Longer Sugar as: BD 2017 [facility] Posiflush) Sodium Chloride 1,000 mL, No Longer S ugar 0.9% IV 1,000 mL Rate: 125 Active 2017 [facility] ml/hr, Infuse over: 8 hr, Route: IV, Dosing Weight 91.108 kg, Total Volume: 1,000, Start date: 04/11/18 18:09:00 CDT, Duration: 30 day, Stop date: 05/11/18 18:08:00 CDT, 2.19, m2 Ondansetron Notes: (Same No Longer Sarkar gar as: Zofran) Active 2017 MEDICATION WASTE Product Size: 4 mg Product Wasted: ___ mg Acetaminophen Notes: Do not No Longer Sugar exceed 4 2017 [facility] gm/day. (Same as: Tylenol) Sodium Chloride 500 mL, Infuse Inactive Sugar 0.9% (Bolus) IV Over: 1 hr, 2017 [facility] Route: IV, ONCE, Priority: STAT, Dosing Weight 91.108 kg, Start date: 04/11/18 15:32:00 CDT, Stop date: 04/11/18 15:32:00 CDT Sodium Chloride 1,000 mL, No Longer S ugar 0.9% IV 1,000 mL Rate: 100 Active 2017 [place] ml/hr, Infuse over: 10 hr, Route: IV, Dosing Weight 91.108 kg, Total Volume: 1,000, Start date: 04/11/18 15:32:00 CDT, Duration: 30 day, Stop date: 05/11/18 15:31:00 CDT, 2.19, m2 Saline Flush 0.9% Notes: (Same No Longer Sugar as: BD Active 2017 [place] Posiflush) rivaroxaban 15 MG 15 mg = 1 tab, Active Sugar Oral Tablet PO, Daily, # 2016 [place] [Xarelto] 30 tab, 0 Refill(s) 24 HR Diltiazem 120 mg = 1 Active Sarkar gar Hydrochloride 120 cap, PO, 2015 [place] MG Extended Daily, # 30 Release Capsule cap, 0 [Cardizem] Refill(s) Xarelto Notes: (Same Inactive Sugar as: Xarelto) 2015 Administer with food potassium chloride Notes: (Same No Longer [place] as: KCL) Active 2015 [place] Infuse no faster than 10 mEq/hr if given peripherally. sodium phosphate + 30 mmol, 10 No Longer Sugar sodium chloride mL, Route: Active 2015 [place] 0.9% INJ 250 mL IVPB, PRN, Dosing Weight 84.091, kg, PRN Abnormal Lab Result, Start date: 09/04/16 19:14:00 CDT, Duration: 30 day, Stop date: 10/04/16 18:13:00 PREDATORY HUNTER, FOR ICU USE ONLY potassium Notes: (Same No Longer [place] phosphate + sodium as: K Active 2015 [place] chloride 0.9% INJ Phosphate.) 1 250 mL mMol phoshate has 1.47 mEq potassium Infuse over 4 hours Magnesium Oxide Notes: (Same No Longer H Sugar as: Mag-Ox Active 2015 [place] 400) Magnesium oxide [id number] elemental magnesium Dose=____mg magnesium oxide (___mg elemental magnesium) Calcium Gluconate Notes: WASTE: No Longer Sugar F/P - Sink; E Active 2015 [facility] - Municipal Trash Bin Calcium Carbonate Notes: (Same No Longer Sugar 500 MG Chewable As: Tums) Active 2015 [facility] Tablet Calcium Carbonate 500 mg = 200 mg elemental calcium Dose = mg calcium carbonate ( mg elemental calcium) Magnesium Sulfate Notes: WASTE: No Longer Sugar F/P - Sink; E Active 2015 [facility] - Municipal Trash Bin potassium Notes: (Same No Longer [place] phosphate-sodium as: Phos-NaK) Active 2015 L and phosphate 250 Each 1.5 gm mg-280 mg-160 mg pkt has 250mg oral powder for phosphorous. reconstitution Mix w/2.5oz water and stir. Glucagon 1 mg, Route: No Longer Sugar IM, Drug form: Active 2015 [place] PDR/INJ, PRN, Dosing Weight 84.091, kg, PRN Blood Glucose Results, Start date: 09/04/16 19:12:00 CDT, Duration: 30 day, Stop date: 10/04/16 18:11:00 PREDATORY HUNTER Dextrose 50% 12.5 gm, 25 No Longer Sarkar gar Syringe mL, Route: Active 2015 IVP, Drug Form: INJ, Dosing Weight 84.091, kg, PRN, PRN Blood Glucose Results, Start date: 09/04/16 19:12:00 CDT, Duration: 30 day, Stop date: 10/04/16 18:11:00 PREDATORY HUNTER Insulin, Aspart, Notes: Roll in No Longer Sugar Human palms of hands Active 2015 [place] gently; Do not shake vigorously. (Same as: NovoLOG) "single patient use only" WASTE: F/P - Black; E - Municipal Trash Bin Stable for 28 days at room temperature. Expires in days from Date Cardizem Notes: (Same No Longer [place] as: Cardizem) Active 2015 [place] Before meals heparin additive 500 mL, Rate: No Longer Sugar 25,000 unit [14 21.36 ml/hr, Active 2015 [place] d unit/kg/hr] + Infuse over: Premix Diluent 23.4 hr, Dextrose 5% 500 mL Route: IV, Dosing Weight 76.3 kg, Total Volume: 500 mL, Start date: 09/04/16 14:55:00 CDT, Duration: 30 day, Stop date: 10/04/16 14:54:00 PREDATORY HUNTER Diltiazem Notes: (Same No Longer [place] as: Cardizem) Active 2015 [place] Lactulose Notes: (Same No Longer [place] as:Chronulac) Active 2015 [facility] sodium chloride 1,000 mL, Inactive Sarkar gar 0.9% 1000 ml INJ Rate: 100 2015 [place] 1,000 mL ml/hr, Infuse over: 10 hr, Route: IV, Dosing Weight 84.091 kg, Total Volume: 1,000, Start date: 09/04/16 0:27:00 CDT, Duration: 30 day, Stop date: 10/04/16 0:26:00 PREDATORY HUNTER Lisinopril Notes: (Same No Longer Sug ar as: Prinivil, Active 2015 [facility] [facility] Zestril) Lactulose Notes: (Same Inactive Sugar as:Chronulac) 2015 Sodium Chloride 500 mL, Rate: Inactive H Sugar 0.9% IV 500 mL 500 ml/hr, 2015 Infuse over: 1 hr, Route: IV, Dosing Weight 84.091 kg, Total Volume: 500, Start date: 09/03/16 12:40:00 CDT, Duration: 1 doses or times, Stop date: 09/03/16 13:39:00 CDT sodium chloride 1,000 mL, No Longer S ugar 0.9% 1000 ml INJ Rate: 150 Active 2015 1,000 mL ml/hr, Infuse over: 6.7 hr, Route: IV, Dosing Weight 84.091 kg, Total Volume: 1,000, Start date: 09/03/16 12:39:00 CDT, Duration: 30 day, Stop date: 10/03/16 12:38:00 PREDATORY HUNTER Hydralazine 10 mg, Route: Inactive Sarkar gar IV, ONCE, 2015 Dosing Weight 84.091, kg, Priority: NOW, Start date: 09/03/16 11:52:00 CDT, Stop date: 09/03/16 11:52:00 CDT Fleet Enema 133 mL, Route: Inactive S ugar [place], Drug Form: 2015 OPAL, Dosing Weight 84.091, kg, ONCE, Start date: 09/03/16 10:12:00 CDT, Stop date: 09/03/16 10:12:00 CDT Hydralazine Notes: (Same Inactive Sug ar as: 2015 Apresoline) Push over 5 minutes oxybutynin 5 mg 5 mg = 1 tab, Active Sugar oral tablet PO, Bedtime, # 2015 [place] 60 tab, 1 Refill(s) tramadol 50 mg = 1 tab, Active Sugar hydrochloride 50 PO, Q6H, PRN [address] [place] [address] MG Oral Tablet Pain, # 40 tab, 0 Refill(s) Trazodone 50 mg = 1 tab, Active Suga r Hydrochloride 50 PO, Bedtime, # 2015 Land MG Oral Tablet 30 tab, 1 Refill(s) 24 HR Nifedipine 60 mg = 2 tab, No Longer Sugar 30 MG Extended PO, BID, # 30 Active 2015 Charles d Release Tablet tab, 0 Refill(s) fludrocortisone 0.1 mg = 1 Active Sarkar gar 0.1 mg oral tablet tab, PO, QAM, 2015 [place] # 30 tab, 0 Refill(s) lisinopril 10 mg 10 mg = 1 tab, Active Sugar oral tablet PO, BID, # 30 2015 Land tab, 0 Refill(s) Fludrocortisone Notes: (Same No Longer H Sugar as: Florinef Active 2015 Acetate) Give with food. pantoprazole Notes: Tablet No Longer Sugar should not be Active 2015 chewed or crushed. (Same as: Protonix) oxybutynin Notes: Same No Longer Suga r as: Ditropan) Active 2015 24 HR Nifedipine Notes: (Same Inactive H Sugar 30 MG Extended as: Procardia 2016 Charles d Release Tablet XL) "Do Not Crush" "Avoid grapefruit and grapefruit juice" Lisinopril Notes: (Same Inactive Suga r as: Prinivil, 2015 [place] Zestril) Bisacodyl Notes: (Same No Longer Suga r As: Dulcolax, Active 2015 [place] Correctol) (Do Not Crush) "Do Not Crush" azelastine nasal 1 spray, Active Sug ar 0.1% (137 mcg/inh) NASAL, BID, 0 2015 [place] spray Refill(s) oxybutynin 5 mg 5 mg = 1 tab, No Longer Sugar oral tablet PO, Daily, # Active 2015 [place] 60 tab, 1 Refill(s) tramadol 50 mg = 1 tab, No Longer Sug ar hydrochloride 50 PO, QPM, # 30 Active 2015 L and MG Oral Tablet tab, 0 Refill(s) 24 HR Nifedipine 60 mg = 1 tab, No Longer Sugar 60 MG Extended PO, Daily, # Active 2015 [place] Release Tablet 30 tab, 0 Refill(s) Acetaminophen 325 Notes: Same as No Longer 09/02 Sugar MG / Hydrocodone [place] Active 2015 [place] Bitartrate 7.5 MG 325-7.5mg Do Oral Tablet not exceed 4gm/day of acetaminophen. Flecainide Notes: (Same No Longer Sug ar as: Tambocor) Active 2015 [place] Saline Flush 0.9% Notes: (Same No Longer Sugar as: BD Active 2015 [place] Posiflush) docusate sodium Notes: (Same No Longer H Sugar 100 mg oral as: Colace) Active 2015 [place] capsule (Do Not Crush) gabapentin 600 MG Notes: (Same No Longer Sugar Oral Tablet as: Neurontin) Active 2015 Land Docusate Sodium 50 50 mg, 1 cap, Inactive Sugar MG Oral Capsule Route: PO, 2015 [place] [Colace] BID, Dosing Weight 84.091, kg, Start date: 09/01/16 17:00:00 CDT, Duration: 30 day, Stop date: 10/01/16 9:00:00 PREDATORY HUNTER Acetaminophen 325 Notes: (Same Inactive Sugar MG / Hydrocodone as: [place] 2015 [place] Bitartrate 5 MG 325/5) Do not Oral Tablet [[place] exceed 4gm/day 5/325] of acetaminophen. Saline Flush 0.9% Notes: (Same No Longer Sugar as: BD Active 2015 [place] Posiflush) tramadol Notes: Not to No Longer Suga r hydrochloride 50 exceed Active 2015 MG Oral Tablet 400mg/day. (Same As: Ultram) Saline Flush 0.9% Notes: (Same No Longer Sugar as: BD Active 2015 [place] Posiflush) remove patch Notes: Remove No Longer Sugar old patch Active 2014 before application of new patch. Magnesium Sulfate 2 gm, 50 mL, Inactive Sugar Route: IVPB, 2014 Drug form: INJ, ONCE, Dosing Weight 79.716, kg, Total dose = 2 gm, Start date: 10/11/15 10:35:00, Duration: 1 doses or times, Stop date: 10/11/15 10:35:00 Protonix Notes: Tablet Inactive Sugar should not be 2014 chewed or crushed. (Same as: Protonix) gabapentin Notes: (Same No Longer Sug ar as: Neurontin) Active 2014 gabapentin 300 MG 300 mg, 1 cap, Inactive Sugar Oral Capsule Route: PO, 2014 Daily, Dosing Weight 79.716, kg, Start date: 10/10/15 21:00:00, Duration: 30 day, Stop date: 11/09/15 9:00:00 Flecainide Notes: (Same No Longer Sug ar as: Tambocor) Active 2014 Lisinopril Notes: (Same No Longer Sug ar as: Prinivil, Active 2014 Zestril) Magnesium Oxide Notes: (Same No Longer H Sugar as: Mag-Ox Active 2014 400) Magnesium oxide [id number] elemental magnesium Dose=____mg magnesium oxide (___mg elemental magnesium) Acetaminophen 325 Notes: Do not No Longer Sugar MG / Hydrocodone exceed 4gm/day Active 2014 Bitartrate 10 MG of Oral Tablet [[place] acetaminophen. 10/325] (Same as: [place] 325/10) Lisinopril Notes: (Same No Longer Sug ar as: Prinivil, Active 2014 [facility] Zestril) Magnesium Sulfate 2 gm, 50 mL, Inactive Sugar Route: IVPB2014 [facility] Drug form: INJ, Q2H, Dosing Weight 79.716, kg, Total dose = 4 gm, Start date: 10/08/15 16:00:00, Duration: 2 doses or times, Stop date: 10/08/15 18:00:00 Dilaudid Notes: (Same Inactive Sugar as: Dilaudid) 2014 phenol Notes: No Longer Sugar Chloraseptic Active 2014 [place] (Same as: Chloraseptic, Sore Throat [place]) Dilaudid Notes: (Same Inactive Sugar as: Dilaudid) 2014 [facility] Diphenhydramine Notes: (Same No Longer H Sugar as: Benadryl) Active 2014 [facility] Temazepam Notes: (Same No Longer Suga r As: Restoril) Active 2014 [facility] Amino Acids 4.25% Notes: Same No Longer Sugar with 5% Dextrose as: ClinimixE Active 2014 L and and Electrolytes (Clinimix E Sulfite-Free) 1000 mL Hydromorphone Notes: (Same No Longer Sugar as: Dilaudid) Active 2014 [facility] ketOROLAC 30 mg/mL 4 days No Longer 10/07 Sugar injectable MEDICATION Active 2014 [facility] solution WASTE Product Size: 30 mg Product Wasted: _15__ mg Benadryl Notes: (Same Inactive Sugar as: Benadryl) 2014 Magnesium Sulfate 2 gm, 50 mL, Inactive Sugar Route: IVPB2014 [facility] Drug form: INJ, ONCE, Dosing Weight 79.716, kg, Total dose = 2 gm, Start date: 10/07/15 12:06:00, Duration: 1 doses or times, Stop date: 10/07/15 12:06:00 Dilaudid Notes: (Same Inactive Sugar as: Dilaudid) 2014 Benadryl Notes: (Same Inactive Sugar as: Benadryl) 2014 Amino Acids 4.25% Notes: Same No Longer Sugar with 5% Dextrose as: ClinimixE Active 2014 L and and Electrolytes (Clinimix E Sulfite-Free) 2,000 mL Metoprolol Notes: (Same No Longer Sug ar as: Lopressor) Active 2014 Push over 2 minutes Hydralazine Notes: (Same No Longer Sarkar gar as: Active 2014 Apresoline) Push over 5 minutes Phenergan Notes: Do not No Longer Sug ar give IV push. Active 2014 (Same as: Phenergan) Clinimix E 1,000 mL, Inactive Sugar Sulfite-Free 4.25% Rate: 75 2014 with 5% Dextrose ml/hr, Infuse and Electrolytes over: 13.3 hr, 1000 mL Route: IV, Dosing Weight 79.716 kg, Total Volume: 1,000 mL, Start date: 10/06/15 14:49:00, Duration: 30 day, Stop date: 11/05/15 14:48:00 gabapentin 600 MG = 3 cap, PO, Active H Sugar Oral Tablet Bedtime, 0 2014 Refill(s) Acetaminophen 325 1 tab, PO, Active Sugar MG / Hydrocodone Q6H, PRN Pain, 2014 Bitartrate 7.5 MG # 28 tab, 0 Oral Tablet Refill(s) lisinopril 10 mg 20 mg = 2 tab, Active Sugar oral tablet PO, Daily, # 2014 90 tab, 1 Refill(s) fludrocortisone 0.1 mg = 1 Active Sarkar gar 0.1 mg oral tablet tab, PO, 2014 Daily, # 30 tab, 3 Refill(s) potassium chloride Notes: Infuse Inactive Sugar at a rate of 2014 10 mEq/hr. (Same as: KCL) Morphine Notes: (Same No Longer Sugar as:MORPhine Active 2014 Sulfate) Hydralazine Notes: (Same No Longer Sarkar gar as: Active 2014 Apresoline) Push over 5 minutes potassium chloride 20 mEq, Route: Inactive 10/06 Sugar IV, ONCE, 2014 Dosing Weight 79.716, kg, Start date: 10/06/15 10:45:00, Stop date: 10/06/15 10:45:00 Protonix Notes: For IV No Longer Suga r push Active 2014 reconstitute with 10 ml 0.9% sodium chloride and push over 2 minutes. (Same as: Protonix) Zofran Notes: (Same No Longer Sugar as: Zofran) Active 2014 MEDICATION WASTE Product Size: 4 mg Product Wasted: ___ mg Morphine Notes: (Same Inactive Sugar as:MORPhine 2014 Sulfate) 168 HR Clonidine Notes: Patch No Longer Sugar 0.0125 MG/HR delivers 0.3 Active 2014 Transdermal Patch mg/24 hours; Patch is applied weekly. [id number] . "Remove old patch before application of new patch" D5NS + KCL 40mEq/L Notes: PREMIX Inactive Sugar 1000ml (Premix) IV - Do Not 2014 1,000 mL Alter Labetalol Notes: (Same No Longer Suga r as: Normodyne, Active 2014 Trandate) Push over 2 minutes Give bolus over 2-3 minutes. influenza virus 0.5 mL, Route: Inactive Sugar vaccine, IM, ONCALL, 2014 inactivated Start date: 10/05/15 23:29:21, Stop date: 11/04/15 23:24:21 Glucose 50 MG/ML / 1,000 mL, No Longer H Sugar Sodium Chloride Rate: 125 Active 2014 0.0769 MEQ/ML ml/hr, Infuse Injectable over: 8 hr, Solution Route: IV, Dosing Weight 81.364 kg, Total Volume: 1,000, Start date: 10/05/15 22:29:00, Duration: 30 day, Stop date: 11/04/15 22:28:00 Saline Flush 0.9% Notes: (Same No Longer Sugar as: BD Active 2014 Posiflush) Morphine Notes: (Same No Longer Sugar as:MORPhine Active 2014 Sulfate) Acetaminophen 325 Notes: (Same No Longer Sugar MG / Hydrocodone as: [place] Active 2014 Bitartrate 5 MG 325/5) Do not Oral Tablet exceed 4gm/day of acetaminophen. Zofran 4 mg, Route: Inactive Sugar IVP, Drug 2014 [place] form: INJ, ONCE, Dosing Weight 81.364, kg, Priority: STAT, Start date: 10/05/15 21:35:00, Stop date: 10/05/15 21:35:00 Morphine 4 mg, Route: Inactive Sugar IVP, Drug 2014 [place] form: INJ, ONCE, Dosing Weight 81.364, kg, Priority: STAT, Start date: 10/05/15 21:26:00, Stop date: 10/05/15 21:26:00 Morphine Notes: (Same Inactive Sugar as:MORPhine 2014 Sulfate) Zofran Notes: (Same Inactive Sugar as: Zofran) 2014 MEDICATION WASTE Product Size: 4 mg Product Wasted: ___ mg Sodium Chloride 1,000 mL, 1000 Inactive Sugar 0.154 MEQ/ML ml/hr, Infuse 2014 Injectable Over: 1 hr, Solution Route: IV, 1,000, Drug form: INJ, ONCE, Priority: STAT, Dosing Weight 81.364 kg, Start date: 10/05/15 18:08:00, Duration: 1 doses or times, Stop date: 10/05/15 18:08:00 Saline Flush 0.9% Notes: (Same Inactive Sugar as: BD 2014 Posiflush) carvedilol 3.125 6.25 mg = 2 Active Sugar mg oral tablet tab, PO, Q12H, 2014 [place] [address] # 60 tab, 0 Refill(s) fludrocortisone 0.1 mg = 1 Active Sarkar gar 0.1 mg oral tablet tab, PO, 2014 [place] Daily, # 30 tab, 0 Refill(s) Megestrol Acetate 400 mg = 10 Active Sugar 40 MG/ML Oral mL, PO, BID, # 2015 Charles d Suspension 600 mL, 0 Refill(s) 24 HR Nifedipine 30 mg = 1 tab, Active Sugar 30 MG Extended PO, Daily, # 2014 [place] Release Tablet 30 tab, 0 Refill(s) 24 HR Nifedipine Notes: (Same No Longer Sugar 90 MG Extended as: Procardia Active 2014 Charles d Release Tablet XL) "Do Not Crush" "Avoid grapefruit and grapefruit juice" Levaquin Notes: Do not No Longer Suga r give Active 2014 w/antacids, dairy pdt & minerals Take 1 hr before or 2 hr after dairy pdt (Same as:Levaquin) potassium chloride Notes: (Same No Longer Sugar as: Potassium Active 2014 Chloride) Florinef Notes: (Same No Longer Sugar as: Florinef Active 2014 Acetate) Give with food. Aspirin 325 MG Notes: Take No Longer Sugar Oral Tablet with food. Active 2014 Megace 400 mg, 10 mL, No Longer Suga r Route: PO, Active 2014 Drug form: SUSP, BID, Dosing Weight 84.091, kg, Start date: 06/14/15 17:00:00, Duration: 30 day, Stop date: 07/14/15 9:00:00 24 HR Nifedipine Notes: (Same No Longer Sugar 90 MG Extended as: Procardia Active 2014 Charles d Release Tablet XL) "Do Not Crush" "Avoid grapefruit and grapefruit juice" D5NS 1,000 mL 1,000 mL, No Longer Sug ar Rate: 75 Active 2014 ml/hr, Infuse over: 13.3 hr, Route: IV, Dosing Weight 84.091 kg, Total Volume: 1,000, Start date: 06/13/15 21:09:00, Stop date: 07/13/15 21:08:00 tamsulosin Notes: (Same No Longer Sug ar As: Flomax) Active 2014 "Do Not Crush" Coreg Notes: Give No Longer Sugar with food. Active 2014 (Same As: Coreg) Lisinopril Notes: (Same No Longer Sug ar as: Prinivil, Active 2014 Zestril) Hydralazine Notes: (Same Inactive Sug ar Hydrochloride 25 as: 2014 [place] MG Oral Tablet Apresoline) May interfere w/enteral feedings Take With Food. Hydralazine Notes: (Same No Longer Sarkar gar as: Active 2014 Apresoline) Push over 5 minutes Hydralazine Notes: (Same Inactive Sug ar Hydrochloride 25 as: 2014 [place] MG Oral Tablet Apresoline) May interfere w/enteral feedings Take With Food. Protonix Notes: Tablet No Longer Suga r should not be Active 2014 chewed or crushed. (Same as: Protonix) Levaquin Notes: Do not No Longer Suga r give Active 2014 Land w/antacids, dairy pdt & minerals Take 1 hr before or 2 hr after dairy pdt (Same as:Levaquin) Hydralazine 25 mg = 1 tab, No Longer Sugar Hydrochloride 25 PO, ONCE, # Active 2014 Charles d MG Oral Tablet 120 tab, 0 Refill(s) clindamycin 300 mg 300 mg = 1 No Longer Sugar oral capsule cap, PO, Q6H, Active 2014 [place] # 40 cap, 0 Refill(s) Ciprofloxacin 500 500 mg = 1 No Longer H Sugar MG Oral Tablet tab, PO, Q12H, Active 2014 [place] [Cipro] # 28 tab, 0 Refill(s) Hydralazine 50 mg = 1 tab, Inactive S ugar Hydrochloride 50 PO, Q8H, # 120 2014 [place] MG Oral Tablet tab, 0 Refill(s) lisinopril 40 mg 40 mg = 1 tab, Active Sugar oral tablet PO, Daily, # 2015 [place] 30 tab, 0 Refill(s) 24 HR Nifedipine 90 mg = 1 tab, No Longer Sugar 90 MG Extended PO, Daily, # Active 2014 [place] Release Tablet 30 tab, 0 Refill(s) gabapentin 400 MG Notes: (Same No Longer Sugar Oral Capsule as: Neurontin) Active 2014 [place] Docusate Notes: (Same No Longer Sugar as: Colace) Active 2014 (Do Not Crush) Flecainide Notes: (Same No Longer Sug ar as: Tambocor) Active 2014 Digoxin Notes: Take on No Longer Suga r an Empty Active 2014 Stomach (Same as: Lanoxin) Lovenox Notes: (Same No Longer Sugar as: Lovenox) Active 2014 Clindamycin Notes: (Same Inactive Sug ar As: Cleocin) 2014 Ciprofloxacin Notes: May Inactive Sug ar interfere 2014 w/enteral feedings - Take 1 hr before or 2 hrs after antacids, dairy pdt & minerals. On empty stomach. NS 1,000 mL 1,000 mL, No Longer Sugar Rate: 75 Active 2014 ml/hr, Infuse over: 13.3 hr, Route: IV, Dosing Weight 84.119 kg, Total Volume: 1,000, Start date: 06/11/15 23:25:00, Duration: 30 day, Stop date: 07/11/15 23:24:00 tramadol Notes: Not to No Longer Suga r hydrochloride 50 exceed Active 2014 MG Oral Tablet 400mg/day. (Same As: Ultram) Temazepam Notes: (Same No Longer Suga r As: Restoril) Active 2014 gabapentin 400 MG Notes: (Same No Longer Sugar Oral Capsule as: Neurontin) Active 2014 Saline Flush 0.9% Notes: (Same No Longer Sugar as: BD Active 2014 Posiflush) Ondansetron Notes: (Same No Longer Sarkar gar as: Zofran) Active 2014 MEDICATION WASTE Product Size: 4 mg Product Wasted: _0__ mg Morphine Notes: (Same No Longer Sugar as:MORPhine Active 2014 Sulfate) Acetaminophen Notes: Do not No Longer Sugar exceed 4 Active 2014 gm/day. (Same as: Tylenol) Acetaminophen 325 Notes: (Same No Longer Sugar MG / Hydrocodone as: [place] Active 2014 Bitartrate 5 MG 325/5) Do not Oral Tablet exceed 4gm/day of acetaminophen. Acetaminophen 325 1 tab, PO, Active Sugar MG / Hydrocodone Q6H, PRN Pain 2015 L and Bitartrate 5 MG Score 1-3, # Oral Tablet [[place] 30 tab, 0 5/325] Refill(s) Hydralazine 50 mg = 1 tab, Active Sarkar gar Hydrochloride 50 PO, Q8H, # 90 2014 L and MG Oral Tablet tab, 0 Refill(s) lisinopril 40 mg 40 mg = 1 tab, Active Sugar oral tablet PO, Daily, # 2015 [place] 30 tab, 0 Refill(s) 24 HR Nifedipine 90 mg = 1 tab, Active Sugar 90 MG Extended PO, Daily, # 2015 [place] Release Tablet 30 tab, 0 Refill(s) clindamycin 300 mg 300 mg = 1 Active Sugar oral capsule cap, PO, Q6H, 2015 [place] X 14 day, # 56 cap, 0 Refill(s) ciprofloxacin 500 500 mg = 1 Active Sugar mg oral tablet tab, PO, Q12H, [address] [place] X 14 day, # 28 tab, 0 Refill(s) Diphenhydramine Notes: (Same Inactive Sugar as: Benadryl) 2014 Naloxone Notes: Same as Inactive Suga r Narcan 2014 Flumazenil Notes: (Same Inactive Suga r as: Romazicon) 2014 [facility] Morphine Notes: (Same Inactive Sugar as:MORPhine 2014 [facility] Sulfate) Fentanyl Notes: (Same Inactive Sugar as: Sublimaze) 2014 [facility] Preservative free. Meperidine Notes: (Same Inactive Suga r as: Demerol) 2014 "Use Precaution in Elderly, Seizure disorders, and Renal impairment&quo t; Ondansetron Notes: (Same Inactive Sug ar as: Zofran) 2014 MEDICATION WASTE Product Size: 4 mg Product Wasted: ___ mg Oxycodone Notes: (Same Inactive Sugar as: 2014 [facility] Roxicodone) Acetaminophen Notes: Infuse Inactive 05/30[facility] Sugar over 15 2014 [place] minutes Do not exceed 4gm/day of acetaminophen MEDICATION WASTE Product Size: 1000 mg Product Wasted: ___ mg Calcium Chloride 1,000 mL, Inactive S ugar 0.0014 MEQ/ML / Rate: 125 2014 Potassium Chloride ml/hr, Infuse 0.004 MEQ/ML / over: 8 hr, Sodium Chloride Route: IV, 0.103 MEQ/ML / Dosing Weight Sodium Lactate 86.364 kg, 0.028 MEQ/ML Total Volume: Injectable 1,000, Start Solution date: 05/30/15 16:13:00, Duration: 30 day, Stop date: 06/29/15 16:12:00 Lactated Ringers 1,000 mL, No Longer Sugar IV 1,000 mL Rate: 25 Active 2014 [place] ml/hr, Infuse over: 40 hr, Route: IV, Dosing Weight 86.364 kg, Total Volume: 1,000, Start date: 05/30/15 16:02:00, Duration: 30 day, Stop date: 06/29/15 16:01:00 Jd Notes: (Same No Longer Sugar as: INVanz) Active 2014 [facility] Refrigerate. NOT COMPATIBLE WITH D5W. Stable in refrigerator for 24 hours MEDICATION WASTE Product Size: 1000 mg Product Wasted: ___ mg vancomycin 2001 mg: No Longer Sugar infuse over Active 2014 [facility] 2.5 hours magnesium sulfate 1 gm, 50 mL, Inactive Sugar Route: IVPB, 2014 Drug form: INJ, ONCE, Start date: 05/30/15 11:00:00, Stop date: 05/30/15 11:00:00 Vancomycin 1 gm, Route: Inactive Leopoldo holden IVPB, Drug 2014 [place] form: INJ, [id number], Dosing Weight 86.364, kg, Start date: 05/30/15 11:00:00, Duration: 30 day, Stop date: 06/28/15 23:00:00 magnesium sulfate 50 mL, Rate: Inactive Sugar 25 ml/hr, 2014 Infuse over: 2 hr, Route: IVPB, Total Volume: 50, Start date: 05/30/15 8:00:00, Stop date: 05/30/15 8:00:00 Magnesium Sulfate 3 gm, Route: Inactive Sugar IV, ONCE, 2014 Dosing Weight 86.364, kg, Priority: STAT, Start date: 05/30/15 7:14:00, Stop date: 05/30/15 7:14:00 Potassium Chloride Notes: (Same Inactive Sugar 1.33 MEQ/ML Oral as: Potassium 2014 L and Solution Chloride) Brendan Notes: (Same No Longer Sugar As: Santyl) Active 2014 Sodium Chloride 1,000 mL, No Longer S ugar 0.154 MEQ/ML Rate: 100 Active 2014 Injectable ml/hr, Infuse Solution over: 10 hr, Route: IV, Dosing Weight 86.364 kg, Total Volume: 1,000, Start date: 05/26/15 18:51:00, Duration: 30 day, Stop date: 06/25/15 18:50:00 24 HR Nifedipine Notes: (Same No Longer Sugar 90 MG Extended as: Procardia Active 2014 Charles d Release Tablet XL) "Do Not Crush" "Avoid grapefruit and grapefruit juice" Zosyn + Sodium Notes: (Same No Longer Sugar Chloride 0.9% IV as: Zosyn) Active 2014 [facility] 100 mL Dosing based on Piperacillin component MEDICATION WASTE Product Size: 3375 mg Product Wasted: ___ mg Omnipaque 300 Notes: (Same No Longer Sugar as:Omnipaque Active 2014 [facility] 300). Hydralazine Notes: (Same No Longer Sarkar gar as: Active 2014 Apresoline) May interfere w/enteral feedings Take With Food. Flagyl Notes: (Same No Longer Sugar as: Flagyl) Active 2014 Take with food/ avoid alcohol Benadryl 25 mg, 1 tab, No Longer Suga r Route: PO, Active 2014 Drug form: TAB, ONCE, Dosing Weight 86.364, kg, PRN Insomnia, Start date: 05/24/15 2:03:00, Stop date: 06/23/15 2:02:00 Hydralazine Notes: (Same No Longer Sarkar gar as: Active 2014 Apresoline) May interfere w/enteral feedings. Take With Food 24 HR Nifedipine Notes: (Same No Longer Sugar 60 MG Extended as: Procardia Active 2014 Charles d Release Tablet XL) "Do Not Crush" "Avoid grapefruit and grapefruit juice" Lisinopril Notes: (Same No Longer Sug ar as: Prinivil, Active 2014 [place] Zestril) Acetaminophen 325 Notes: (Same No Longer Sugar MG / Hydrocodone as: [place] Active 2014 Land Bitartrate 5 MG 325/5) Do not Oral Tablet [[place] exceed 4gm/day 5/325] of acetaminophen. Hydralazine Notes: (Same Inactive Sug ar Hydrochloride 10 as: 2014 MG Oral Tablet Apresoline) Push over 5 minutes Hydralazine Notes: (Same No Longer Sarkar gar as: Active 2014 Apresoline) May interfere w/enteral feedings. Take With Food Insulin, Aspart, Notes: Roll in No Longer Sugar Human palms of hands Active 2014 gently; Do not shake vigorously. (Same as: NovoLOG) "single patient use only" Stable for 28 days at room temperature. Expires in days from Date Lisinopril Notes: (Same No Longer Sug ar as: Prinivil, Active 2014 [place] Zestril) Trazodone Notes: (Same No Longer Suga r Hydrochloride 100 As: Desyrel) Active 2014 L and MG Oral Tablet insulin detemir Notes: Same as No Longer Sugar Levemir Do not Active 2014 hold insulin without contacting prescriber "single patient use only" Insulin, Aspart, Notes: Roll in No Longer Sugar Human palms of hands Active 2014 [place] gently; Do not shake vigorously. (Same as: NovoLOG) "single patient use only" Stable for 28 days at room temperature. Expires in days from Date Sodium Chloride 1,000 mL, No Longer S ugar 0.154 MEQ/ML Rate: Titrate, Active 2014 Injectable Dosing Weight Solution 86.364, kg, Route: IV, Total Volume: 1,000, Start Date: 05/19/15 11:28:00, Duration: 30 day, Stop date: 06/18/15 11:27:00, Replace Every: 24 hr Insulin, Aspart, Notes: Roll in No Longer Sugar Human palms of hands Active 2014 [facility] gently; Do not shake vigorously. (Same as: NovoLOG) "single patient use only" Stable for 28 days at room temperature. Expires in days from Date Dextrose 50% 25 gm, 50 mL, No Longer Sugar Syringe Route: IVP, Active 2014 Drug Form: INJ, Dosing Weight 86.364, kg, PRN, PRN Blood Glucose Results, Start date: 05/19/15 10:26:00, Duration: 30 day, Stop date: 06/18/15 10:25:00 Glucagon 1 mg, Route: No Longer Sugar IM, Drug form: Active 2014 Land PDR/INJ, PRN, Dosing Weight 86.364, kg, PRN Blood Glucose Results, Start date: 05/19/15 10:26:00, Duration: 30 day, Stop date: 06/18/15 10:25:00 Kayexalate Notes: (sodium Inactive Sarkar gar polystyrene 2014 sulfonate 15 gm/60 ml SANDRA) Shake well before use. (Same as: Kayexalate, SPS) fat emulsion, Notes: (Same No Longer Sugar intravenous as: Active 2014 Intralipid, Liposyn) vancomycin 2001 mg: No Longer Sugar infuse over Active 2014 Land 2.5 hours Bisacodyl Notes: (Same No Longer Suga r As: Dulcolax, Active 2014 Bisco-Lax) Amino Acids 4.25% Notes: Same No Longer Sugar with 5% Dextrose as: ClinimixE Active 2014 L and and Electrolytes (Clinimix E Sulfite-Free) 2,000 mL Dulcolax Laxative Notes: (Same No Longer Sugar As: Dulcolax, Active 2014 Bisco-Lax) Vancomycin 1 gm, Route: Inactive Suga r IVPB, Drug 2014 [facility] form: INJ, [id number], Dosing Weight 86.364, kg, Priority: NOW, Start date: 05/18/15 11:38:00, Duration: 30 day, Stop date: 06/16/15 23:38:00 Magnesium Sulfate 2 gm, 50 mL, Inactive Sugar Route: IVPB, 2014 Drug form: INJ, ONCE, Dosing Weight 86.364, kg, Total dose = 2 gm, Start date: 05/18/15 9:19:00, Duration: 1 doses or times, Stop date: 05/18/15 9:19:00 digoxin 125 mcg Notes: Take on No Longer Sugar (0.125 mg) oral an Empty Active 2014 tablet Stomach (Same as: Lanoxin) 24 HR Nifedipine Notes: (Same No Longer Sugar 30 MG Extended as: Procardia Active 2014 Charles d Release Tablet XL) "Do Not [Procardia] Crush" "Avoid grapefruit and grapefruit juice" Lisinopril Notes: (Same No Longer Sug ar as: Prinivil, Active 2014 Zestril) gabapentin 400 MG Notes: (Same No Longer Sugar Oral Capsule as: Neurontin) Active 2014 Vancomycin 2001 mg: Inactive Sugar infuse over 2014 2.5 hours gabapentin 400 MG Notes: (Same No Longer Sugar Oral Capsule as: Neurontin) Active 2014 Flecainide Notes: (Same No Longer Sug ar as: Tambocor) Active 2014 Mirtazapine Notes: (Same No Longer Sarkar gar as:Remeron) Active 2014 Aspirin 325 MG Notes: Take No Longer Sugar Oral Tablet with food. Active 2014 Dulcolax Laxative Notes: (Same No Longer Sugar As: Dulcolax, Active 2014 Bisco-Lax) Amino Acids 5% Notes: Same No Longer Sugar with 15% Dextrose as: Clinimix E Active 2014 and Electrolytes 04/01 Standard (Clinimix E electrolytes Sulfite-Free) for this 2,000 mL formulation listed on bag pantoprazole Notes: Tablet No Longer Sugar should not be Active 2014 chewed or crushed. (Same as: Protonix) Amino Acids 5% 1,000 mL, Inactive Sug ar with 15% Dextrose Rate: 90 2014 Land and Electrolytes ml/hr, Infuse (Clinimix E over: 11.1 hr, Sulfite-Free) 1000 Route: IVPB, mL Dosing Weight 86.364 kg, Total Volume: 1,000 mL, Start date: 05/17/15 13:19:00, Duration: 30 day, Stop date: 06/16/15 13:18:00 gabapentin 400 MG 400 mg = 1 Active Sugar Oral Capsule cap, PO, QAM, 2014 Land 0 Refill(s) Bisacodyl 10 MG 10 mg = 1 Active Sug ar Rectal Suppository supp, [place], 2014 Charles d [Dulcolax] Q12H, PRN 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, # 10 supp, 0 Refill(s) senna 8.6 mg oral 17.2 mg = 2 Active Sugar tablet tab, PO, 2014 Land Bedtime, PRN 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, # 20 tab, 0 Refill(s) digoxin 125 mcg 125 microgram Active Sugar (0.125 mg) oral = 1 tab, PO, 2014 Charles d tablet QAM, # 30 tab, 0 Refill(s) Clinimix E Special No Longer Sugar Sulfite-Free 5% Instructions: Active 2014 [place] with 15% Dextrose use 90 ml/hr and Electrolytes IV Q24H Aspirin 325 MG 325 mg = 1 Active Sug ar Oral Tablet tab, PO, QPM, 2014 Land 0 Refill(s) Ciprofloxacin 500 Special No Longer S ugar MG Oral Tablet Instructions: Active 2014 Charles d [Cipro] for UTI Acetaminophen 325 650 mg = 2 Active Sugar MG Oral Tablet tab, PO, Q6H, 2014 Charles d [Tylenol] PRN Pain Score 1-5, # 120 tab, 0 Refill(s) lisinopril 10 mg Special No Longer Sarkar gar oral tablet Instructions: Active 2014 Land Hold for SBP <110 tramadol 50 mg = 1 tab, Active Sugar hydrochloride 50 PO, Q6H, PRN 2014 [place] MG Oral Tablet Pain Score 7-10, # 40 tab, 0 Refill(s) EGG YOLK Special No Longer Sugar PHOSPHOLIPIDS 12 Instructions: Active 2014 L and MG/ML / Glycerin Infuse over 8 22.5 MG/ML / hours Soybean Oil 200 MG/ML Injectable Suspension 24 HR Nifedipine 30 mg = 1 tab, No Longer Sugar 30 MG Extended PO, QAM, # 30 Active 2014 Charles d Release Tablet tab, 0 [Procardia] Refill(s) flecainide 150 mg 75 mg = 0.5 Active Sugar oral tablet tab, PO, Q12H, 2014 0 Refill(s) temazepam 15 mg 15 mg = 1 cap, Active 06/ M H Sugar oral capsule PO, Bedtime, 2014 PRN Sleep, 0 Refill(s) Omeprazole 40 MG 40 mg = 1 cap, Active Sugar Enteric Coated PO, QAM, # 30 2014 Charles d Capsule [Prilosec] cap, 0 Refill(s) tamsulosin 0.4 mg 0.4 mg = 1 Active Sugar oral capsule cap, PO, 2014 Bedtime, # 30 cap, 0 Refill(s) Zosyn Notes: Infuse No Longer Sugar over 4 hours. Active 2014 (same as: Zosyn) Enoxaparin Notes: (Same No Longer Sug ar as: Lovenox) Active 2014 Phenergan Notes: Do not No Longer Sug ar give IV push. Active 2014 (Same as: Phenergan) Zofran Notes: (Same No Longer Sugar as: Zofran) Active 2014 MEDICATION WASTE Product Size: 4 mg Product Wasted: ___ mg Saline Flush 0.9% Notes: (Same No Longer Sugar as: BD Active 2014 Posiflush) Ondansetron Notes: (Same No Longer Sarkar gar as: Zofran) Active 2014 MEDICATION WASTE Product Size: 4 mg Product Wasted: ___ mg Acetaminophen Notes: Do not No Longer Sugar exceed 4 Active 2014 Land gm/day. (Same as: Tylenol) Sodium Chloride 1,000 mL, No Longer S ugar 0.154 MEQ/ML Rate: 100 Active 2014 Land Injectable ml/hr, Infuse Solution over: 10 hr, Route: IV, Dosing Weight 86.364 kg, Total Volume: 1,000, Start date: 05/16/15 22:18:00, Stop date: 05/17/15 21:00:00 Morphine Notes: (Same No Longer Sugar as:MORPhine Active 2014 Sulfate) Zosyn Notes: Infuse Inactive Sugar over 4 hours. 2014 Land (same as: Zosyn) Omnipaque 300 Notes: (Same Inactive S ugar as:Omnipaque 2014 Land 300). Saline Flush 0.9% Notes: (Same No Longer Sugar as: BD Active 2014 Land Posiflush) Amino Acids 5% Notes: Same No Longer Sugar with 15% Dextrose as: Clinimix E Active 2014 and Electrolytes 04/01 Standard (Clinimix E electrolytes Sulfite-Free) for this 2,000 mL formulation listed on bag octreotide 100 100 microgram, Active Sugar mcg/mL injectable SUB-Q, TID, X 2014 Land solution 10 day, # 30 mL, 0 Refill(s) pantoprazole 40 MG 40 mg = 1 tab, Active Sugar Enteric Coated PO, Daily, # 2014 Tablet [Protonix] 90 tab, 0 Refill(s) Amino Acids 4.25% Notes: Same No Longer Sugar with 5% Dextrose as: Clinimix Active 2014 [place] (Clinimix Sulfite-Free) 2000 mL Amino Acids 4.25% Notes: Same No Longer Sugar with 5% Dextrose as: Clinimix Active 2014 [place] (Clinimix Sulfite-Free) 1000 mL octreotide 100 100 microgram Active Sugar mcg/mL injectable = 1 mL, SUB-Q, 2014 Land solution Q8H, 0 Refill(s) 24 HR Nifedipine 30 mg = 1 tab, Active Sugar 30 MG Extended PO, Daily, # 2015 Release Tablet 30 tab, 0 [Procardia] Refill(s) tamsulosin 0.4 mg 0.4 mg = 1 Active Sugar oral capsule cap, PO, After 2014 Breakfast, # 30 cap, 0 Refill(s) Sodium Chloride 250 mL, Rate: No Longer Sugar 0.9% (titrate) 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 (Same as: Protonix) gabapentin 400 MG Notes: (Same No Longer Sugar Oral Capsule as: Neurontin) Active 2014 digoxin 125 mcg Notes: Take on No Longer Sugar (0.125 mg) oral an Empty Active 2014 tablet Stomach (Same as: Lanoxin) metoprolol Notes: (Same No Longer Sug ar tartrate as: Lopressor) Active 2014 gabapentin 400 MG Notes: (Same No Longer Sugar Oral Capsule as: Neurontin) Active 2014 Flecainide Notes: (Same No Longer Sug ar as: Tambocor) Active 2014 Lisinopril Notes: (Same No Longer Sug ar as: Prinivil, Active 2014 Zestril) Hydralazine Notes: (Same No Longer Sarkar gar Hydrochloride 25 as: Active 2014 MG Oral Tablet Apresoline) May interfere w/enteral feedings Take With Food. 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 L and mL use with blood product administration , Dosing Weight 104.545, kg, Route: IV, Total Volume: 250, Start Date: 04/15/15 12:09:00, Duration: 30 day, Stop date: 05/15/15 12:08:00, Replace Every: 24 hr Ofirmev Notes: Infuse No Longer Sugar over 15 Active 2014 minutes Do not exceed 4gm/day of acetaminophen MEDICATION WASTE Product Size: 1000 mg Product Wasted: ___ mg Dilaudid Notes: (Same No Longer Sugar as: Dilaudid) Active 2014 Land Restoril Notes: (Same No Longer Sugar As: Restoril) Active 2014 Maalox Advanced Notes: No Longer Sug ar Regular Strength (aluminum Active 2014 SUSP hydroxide-magn esium hyd-simethicon e [phone] ml 30 ml ud SANDRA) Acetaminophen 325 Notes: Do not No Longer Sugar MG / Hydrocodone exceed 4gm/day Active 2014 Bitartrate 10 MG of Oral Tablet [[place] acetaminophen. 10/325] (Same as: [place] 325/10) Hydralazine Notes: (Same No Longer Sarkar gar as: Active 2014 Apresoline) Push over 5 minutes 168 HR Clonidine Notes: Patch No Longer Sugar 0.25693 MG/HR delivers 0.2 Active 2014 Transdermal Patch mg/24 hours; Patch is applied weekly. "Remove old patch before application of new patch" (Same As: [id number] ) tamsulosin Notes: (Same No Longer Sug ar As: Flomax) Active 2014 "Do Not Crush" Hydralazine Notes: (Same No Longer Sarkar gar as: Active 2014 Apresoline) Push over 5 minutes Hydromorphone Notes: (Same No Longer Sugar as: Dilaudid) Active 2014 conc = 0.5 mg/ml Hydromorphone TAR HEATER Dose: ;Delay: ;Basal: Acetaminophen Notes: Infuse Inactive Sugar over 15 2014 minutes Do not exceed 4gm/day of acetaminophen MEDICATION WASTE Product Size: 1000 mg Product Wasted: ___ mg Lopressor Notes: (Same No Longer Suga r as: Lopressor) Active 2014 Push over 2 minutes Labetalol Notes: (Same No Longer Suga r as: Normodyne, Active 2014 Trandate) Push over 2 minutes Give bolus over 2-3 minutes. Hydralazine Notes: (Same No Longer Sarkar gar as: Active 2014 Apresoline) Push over 5 minutes Vancomycin Notes: TIME Inactive Sugar CRITICAL 2014 MEDICATION fat emulsion, Notes: (Same No Longer Sugar intravenous as: Active 2014 Intralipid, Liposyn) Amino Acids 5% Notes: Same Inactive S ugar with 15% Dextrose as: Clinimix 2014 L and (Clinimix Sulfite-Free) 2,000 mL Amino Acids 5% Notes: Same No Longer Sugar with 15% Dextrose as: Clinimix E Active 2014 and Electrolytes 5/15 Standard (Clinimix E electrolytes Sulfite-Free) for this 2,000 mL formulation listed on bag lidocaine 1% Notes: No Longer Sugar Preservative Active 2014 free. (Same as: Xylocaine MPF) Amino Acids 5% 2,000 mL, Inactive Sug ar with 15% Dextrose Rate: 90 2014 and Electrolytes ml/hr, Infuse (Clinimix E over: 22.2 hr, Sulfite-Free) 1999 Route: IVPB, mL Dosing Weight 104.545 kg, Total Volume: 2,000 mL, Start date: 04/08/15 14:53:00, Duration: 30 day, Stop date: 05/08/15 14:52:00 NS 1,000 mL 1,000 mL, Inactive Sugar Rate: 100 2014 ml/hr, Infuse over: 10 hr, Route: IV, Dosing Weight 104.545 kg, Total Volume: 1,000, Start date: 04/08/15 8:30:00, Stop date: 04/08/15 21:00:00 Sodium Chloride 1,000 mL, Inactive Sarkar gar 0.154 MEQ/ML 1,000 ml/hr, 2014 Injectable Infuse Over: 1 Solution hr, Route: IV, 1,000, Drug form: INJ, ONCE, Priority: STAT, Dosing Weight 104.545 kg, Start date: 04/08/15 8:30:00, Duration: 1 doses or times, Stop date: 04/08/15 8:30:00 Calcium Carbonate Notes: (Same No Longer Sugar 500 MG Chewable As: Tums) Active 2014 Tablet Calcium Carbonate 500 mg = 200 mg elemental calcium Dose = mg calcium carbonate ( mg elemental calcium) Calcium Gluconate Special No Longer S ugar Instructions: Active 2014 FOR ICU USE ONLY Magnesium Oxide Notes: (Same No Longer H Sugar as: Mag-Ox Active 2014 400) Magnesium oxide [id number] elemental magnesium Dose=____mg magnesium oxide (___mg elemental magnesium) potassium chloride Notes: Infuse No Longer 04/08 Sugar at a rate of Active 2014 10 mEq/hr. (Same as: KCL) potassium Notes: (Same No Longer Suga r phosphate + Sodium as: K Active 2014 Land Chloride 0.9% IV Phosphate.) 1 250 mL mMol phoshate has 1.47 mEq potassium Infuse over 4 hours Magnesium Sulfate Special No Longer S ugar Instructions: Active 2014 Land FOR ICU USE ONLY Neutra-Phos Notes: Same No Longer Sug ar as: Phos-Nak Active 2014 Land Mix 1 packet with 75 mL water or juice. Each packet has 160mg of sodium, 280mg of potassium, and 250mg of phosphorus Non-Formulary Item sodium phosphate + Special No Longer Sugar Sodium Chloride Instructions: Active 2014 [place] 0.9% IV 250 mL FOR ICU USE ONLY Magnesium Sulfate 2 gm, 50 mL, No Longer Sugar Route: IVPB, Active 2014 Drug form: INJ, ONCE, Dosing Weight 104.545, kg, Start date: 04/07/15 23:33:00, Duration: 2 hr, Stop date: 04/07/15 23:33:00 Lasix Notes: (Same No Longer Sugar as: Lasix) Active 2014 MEDICATION WASTE Product Size: 40 mg Product Wasted: ___ mg Calcium Gluconate Notes: Always Inactive Sugar ordered as ___ 2014 mEq per 100ml - Send 1 syringe for each 100ml - MUST be diluted prior to administration . Add to 100ml of IV fluids. . sodium bicarbonate Notes: (sodium No Longer 03/19 Sugar 8.4% additive 150 bicarb 8.4% (1 Active 2014 mEq + D5W 850 mL mEq/ml) 50 ml VL) Fluconazole Notes: (Same No Longer Sarkar gar as: Diflucan) Active 2014 Do not refrigerate heparin Notes: porcine No Longer Suga r heparin Active 2014 Octreotide Notes: (Same No Longer Sug ar As: Active 2014 SandoSTATIN). Refrigerate. MEDICATION WASTE Product Size: 100 microgram Product Wasted: ___ microgram sodium bicarbonate Notes: (sodium Inactive 04/07 Sugar 8.4% additive 150 bicarb 8.4% (1 2014 mEq + D5W 1,000 mL mEq/ml) 50 ml VL) Calcium Gluconate 1,000 mg, Inactive Sugar Route: IVPB2014 Drug form: INJ, ONCE, Dosing Weight 104.545, kg, Start date: 04/07/15 9:05:00, Stop date: 04/07/15 9:05:00 Zosyn Notes: (Same No Longer Sugar as: Zosyn) Active 2014 Dosing based on Piperacillin component MEDICATION WASTE Product Size: 3375 mg Product Wasted: ___ mg normal saline 0.9% 1,000 mL, No Longer H Sugar IV 1,000 mL Rate: 150 Active 2014 ml/hr, Infuse over: 6.7 hr, Route: IV, Dosing Weight 104.545 kg, Total Volume: 1,000, Start date: 04/07/15 8:48:00, Duration: 30 day, Stop date: 05/07/15 8:47:00 NS 1,000 mL 1,000 mL, Inactive Sugar Rate: 100 2014 ml/hr, Infuse over: 10 hr, Route: IV, Dosing Weight 104.545 kg, Total Volume: 1,000, Start date: 04/07/15 7:42:00, Duration: 30 day, Stop date: 05/07/15 7:41:00 Protonix 40 mg, Route: No Longer Suga r IVP, Before Active 2014 Breakfast, Dosing Weight 104.545, kg, Start date: 04/07/15 7:30:00, Duration: 30 day, Stop date: 05/06/15 7:30:00 Protonix Notes: For IV No Longer Suga r push Active 2014 reconstitute with 10 ml 0.9% sodium chloride and push over 2 minutes. (Same as: Protonix) azelastine nasal 1 spray, No Longer S ugar 0.1% (137 mcg/inh) NASAL, Daily, Active 2014 Land spray 0 Refill(s) tramadol 50 mg = 1 tab, No Longer Sug ar hydrochloride 50 PO, Q6H, PRN Active 2014 [place] MG Oral Tablet foot pain, # 40 tab, 0 Refill(s) ondansetron 4 mg 4 mg = 1 tab, No Longer Sugar oral tablet PO, TID, PRN Active 2014 Land as needed for nausea/vomitin g, # 3 tab, 0 Refill(s) Metronidazole 500 500 mg = 1 No Longer 05/ H Sugar MG Oral Tablet tab, PO, Q8H, Active 2014 Charles d # 21 tab, 0 Refill(s) omeprazole 40 mg Special Active Suga r oral delayed Instructions: 2014 Land release capsule before a meal gabapentin 400 MG 1,200 mg = 3 Active 05/ M H Sugar Oral Capsule cap, PO, 2014 Bedtime, # 120 cap, 0 Refill(s) Acetaminophen 325 100.4 F, # 30 Active Sugar MG / Hydrocodone tab, 0 2014 Bitartrate 5 MG Refill(s) Oral Tablet [[place] 5/325] Hydralazine 25 mg = 1 tab, Active Sarkar gar Hydrochloride 25 PO, TID, PRN 2014 [place] MG Oral Tablet blood pressure, # 120 tab, 0 Refill(s) ciprofloxacin 500 500 mg = 1 No Longer 04/06/ H Sugar mg oral tablet tab, PO, Q12H, Active 2014 [place] # 14 tab, 0 Refill(s) Hydromorphone Notes: (Same No Longer Sugar as: Dilaudid) Active 2014 Land conc = 0.5 mg/ml Hydromorphone TAR HEATER Dose: ;Delay: ;Basal: Diflucan Notes: (Same No Longer Sugar as: Diflucan) Active 2014 vancomycin 2001 mg: No Longer Sugar infuse over Active 2014 2.5 hours Naloxone Notes: Same as No Longer Sug ar Narcan Active 2014 Vancomycin 1 gm, Route: Inactive Suga r IVPB, Drug 2014 Land form: INJ, [id number], Dosing Weight 104.545, kg, Start date: 04/06/15 15:00:00, Duration: 30 day, Stop date: 05/06/15 7:00:00 LR IV 1,000 mL 1,000 mL, No Longer Sarkar gar Rate: 125 Active 2014 ml/hr, Infuse over: 8 hr, Route: IV, Dosing Weight 104.545 kg, Total Volume: 1,000, Start date: 04/06/15 14:10:00, Duration: 30 day, Stop date: 05/06/15 14:09:00 Lactated Ringers 1,000 mL, Inactive S ugar IV 1,000 mL Rate: 25 2014 Land ml/hr, Infuse over: 40 hr, Route: IV, Dosing Weight 104.545 kg, Total Volume: 1,000, Start date: 04/06/15 10:57:00, Duration: 30 day, Stop date: 05/06/15 10:56:00 Cipro Notes: Do not No Longer Sugar refrigerate Active 2014 Docusate Notes: (Same No Longer Sugar as: Colace) Active 2014 (Do Not Crush) Ondansetron Notes: (Same No Longer Sarkar gar as: Zofran) Active 2014 MEDICATION WASTE Product Size: 4 mg Product Wasted: ___ mg Morphine Notes: (Same No Longer Sugar as:MORPhine Active 2014 Sulfate) Acetaminophen 325 Notes: (Same No Longer Sugar MG / Hydrocodone as: [place] Active 2014 Bitartrate 5 MG 325/5) Do not Oral Tablet exceed 4gm/day of acetaminophen. Acetaminophen Notes: Do not No Longer Sugar exceed 4 Active 2014 gm/day. (Same as: Tylenol) Saline Flush 0.9% Notes: (Same No Longer Sugar as: BD Active 2014 Posiflush) Lactated Ringers 1,000 mL, Inactive S ugar IV 1,000 mL Rate: 125 2014 ml/hr, Infuse over: 8 hr, Route: IV, Dosing Weight 104.545 kg, Total Volume: 1,000, Start date: 04/06/15 9:00:00, Duration: 30 day, Stop date: 05/06/15 8:59:00 Protonix Notes: For IV Inactive Sugar push 2014 reconstitute with 10 ml 0.9% sodium chloride and push over 2 minutes. (Same as: Protonix) Flagyl Notes: (Same Inactive Sugar as: Flagyl) 2014 Avoid alcohol. Dilaudid Notes: (Same No Longer Sugar as: Dilaudid) Active 2014 Sodium Chloride 1,000 mL, Inactive Sarkar gar 0.154 MEQ/ML 1,000 ml/hr, 2014 Injectable Infuse Over: 1 Solution hr, Route: IV, 1,000, Drug form: INJ, ONCE, Priority: STAT, Dosing Weight 104.545 kg, Start date: 04/06/15 8:48:00, Duration: 1 doses or times, Stop date: 04/06/15 8:48:00 LR IV 1,000 mL 1,000 mL, Inactive Sug ar Rate: 125 2014 ml/hr, Infuse over: 8 hr, Route: IV, Dosing Weight 104.545 kg, Total Volume: 1,000, Start date: 04/06/15 8:47:00, Duration: 30 day, Stop date: 05/06/15 8:46:00 Dilaudid Notes: (Same Inactive Sugar as: Dilaudid) 2014 Morphine Notes: (Same No Longer Sugar as:MORPhine Active 2014 Sulfate) vancomycin 2001 mg: Inactive Sugar infuse over 2014 2.5 hours NS 1,000 mL Special Inactive Sugar Instructions: 2014 Bolus Dose Vancomycin 1 gm, Route: Inactive Suga r IVPB, Drug 2014 form: INJ, ONCE, Dosing Weight 100, kg, Priority: STAT, Start date: 04/06/15 5:37:00, Stop date: 04/06/15 5:37:00 Zosyn Notes: Infuse Inactive Sugar over 4 hours. 2014 (same as: Zosyn) Fentanyl Notes: (Same Inactive Sugar as: Sublimaze) 2014 Preservative free. Omnipaque 300 Notes: (Same Inactive S ugar as:Omnipaque 2014 [facility] 300). Morphine Notes: (Same Inactive Sugar as:MORPhine 2014 Sulfate) Ondansetron Notes: (Same Inactive Sug ar as: Zofran) 2014 MEDICATION WASTE Product Size: 4 mg Product Wasted: ___ mg Sodium Chloride 500 mL, 1000 Inactive Sugar 0.154 MEQ/ML ml/hr, Infuse 2014 Injectable Over: 30 Solution minutes, Route: IV, 500, Drug form: INJ, ONCE, Priority: STAT, Dosing Weight 99.716 kg, Start date: 04/06/15 4:05:00, Duration: 1 doses or times, Stop date: 04/06/15 4:05:00 Ondansetron 4 MG 4 mg = 1 tab, No Longer Sugar Oral Tablet PO, TID, PRN Active 2015 Land [Zofran] as needed for nausea/vomitin g, X 5 day, # 15 tab, 0 Refill(s) ciprofloxacin 500 500 mg = 1 No Longer 05/18/ M H Sugar mg oral tablet tab, PO, Q12H, Active 2014 [place] X 7 day, # 14 tab, 0 Refill(s) Hydralazine 160 No Longer 04/04/ Sugar Hydrochloride 25 Active 2014 Land MG Oral Tablet Acetaminophen 325 1 tab, PO, No Longer 05/18/ M H Sugar MG / Hydrocodone Q4H, PRN Pain Active 2014 L and Bitartrate 5 MG Score 1-3, X 5 Oral Tablet day, # 30 tab, 0 Refill(s) Metronidazole 500 500 mg = 1 No Longer 05/18/ M H Sugar MG Oral Tablet tab, PO, Q8H, Active 2014 Charles d [Flagyl] X 7 day, # 21 tab, 0 Refill(s) Dilaudid Notes: (Same No Longer Sugar as: Dilaudid) Active 2014 Hydralazine Notes: (Same No Longer Sarkar gar as: Active 2014 Apresoline) May interfere w/enteral feedings Take With Food. Miralax Notes: No Longer Sugar Dissolve in 8 Active 2014 oz of water or juice. (Same as: Miralax) Thiamine Notes: (Same No Longer Sugar As: Vitamin Active 2014 B1) Lactated Ringers 1,000 mL, Inactive S ugar IV 1,000 mL Rate: 30 2014 ml/hr, Infuse over: 33.3 hr, Route: IV, Dosing Weight 99.716 kg, Total Volume: 1,000, Start date: 04/03/15 0:10:00, Duration: 30 day, Stop date: 05/03/15 0:09:00 metoprolol Notes: (Same No Longer Sug ar tartrate as: Lopressor) Active 2014 Amino Acids 4.25% Notes: Same No Longer Sugar with 5% Dextrose as: ClinimixE Active 2014 L and and Electrolytes (Clinimix E Sulfite-Free) 2,000 mL Amino Acids 4.25% 2,000 mL, Inactive Sugar with 5% Dextrose Rate: 100 2014 and Electrolytes ml/hr, Infuse (Clinimix E over: 20 hr, Sulfite-Free) 2000 Route: IVPB, mL Dosing Weight 99.716 kg, Total Volume: 2,000 mL, Start date: 04/01/15 13:28:00, Duration: 30 day, Stop date: 05/01/15 13:27:00 Lisinopril Notes: (Same Inactive Suga r as: Prinivil, 2014 Zestril) Hydromorphone Notes: (Same No Longer Sugar as: Dilaudid) Active 2014 conc = 0.5 mg/ml Hydromorphone TAR HEATER Dose: ;Delay: ;Basal: Lactated Ringers 1,000 mL, No Longer Sugar IV 1,000 mL Rate: 100 Active 2014 ml/hr, Infuse over: 10 hr, Route: IV, Dosing Weight 99.716 kg, Total Volume: 1,000, Start date: 03/31/15 17:01:00, Duration: 30 day, Stop date: 04/30/15 17:00:00 Magnesium Sulfate 2 gm, 50 mL, Inactive Sugar Route: IVPB, 2014 Drug form: INJ, ONCE, Dosing Weight 99.716, kg, Start date: 03/31/15 16:43:00, Duration: 2 hr, Stop date: 03/31/15 16:43:00 Hydralazine Notes: (Same No Longer Sarkar gar as: Active 2014 Apresoline) Push over 5 minutes Lovenox Notes: (Same No Longer Sugar as: Lovenox) Active 2014 Flagyl Notes: (Same No Longer Sugar as: Flagyl) Active 2014 Avoid alcohol. Hydralazine Notes: (Same Inactive Sug ar as: 2014 Apresoline) Push over 5 minutes Lopressor Notes: (Same No Longer Suga r as: Lopressor) Active 2014 Push over 2 minutes Thiamine Notes: (Same No Longer Sugar As: Vitamin Active 2014 B1) Hydromorphone Notes: (Same No Longer Sugar as: Dilaudid) Active 2015 Land conc = 0.5 mg/ml Hydromorphone TAR HEATER Dose: ;Delay: ;Basal: Naloxone Notes: Same as Inactive Suga r Narcan 2014 Diphenhydramine Notes: (Same Inactive Sugar as: Benadryl) 2014 Ketorolac 4 days Inactive Suga r MEDICATION 2014 WASTE Product Size: 30 mg Product Wasted: ___ mg Fentanyl Notes: (Same Inactive Sugar as: Sublimaze) 2014 Preservative free. Meperidine Notes: (Same Inactive Suga r as: Demerol) 2014 "Use Precaution in Elderly, Seizure disorders, and Renal impairment&quo t; Hydromorphone Notes: (Same Inactive S ugar as: Dilaudid) 2014 Flumazenil Notes: (Same Inactive Suga r as: Romazicon) 2014 Morphine Notes: (Same Inactive Sugar as:MORPhine 2014 [facility] Sulfate) Labetalol Notes: (Same Inactive Sugar as: Normodyne, 2014 Trandate) Push over 2 minutes Give bolus over 2-3 minutes. Oxycodone Notes: (Same Inactive Sugar as: 2014 Roxicodone) Acetaminophen Notes: Infuse Inactive Sugar over 15 2014 minutes Do not exceed 4gm/day of acetaminophen MEDICATION WASTE Product Size: 1000 mg Product Wasted: ___ mg Ondansetron Notes: (Same Inactive Sug ar as: Zofran) 2014 MEDICATION WASTE Product Size: 4 mg Product Wasted: ___ mg Naloxone Notes: Same as No Longer Sug ar Narcan Active 2014 Lactated Ringers 1,000 mL, No Longer Sugar IV 1,000 mL Rate: 125 Active 2014 ml/hr, Infuse over: 8 hr, Route: IV, Dosing Weight 99.716 kg, Total Volume: 1,000, Start date: 03/30/15 10:19:00, Stop date: 03/31/15 10:18:00 Folic Acid Notes: (Same No Longer Sug ar as: Folvite) Active 2014 Sodium Chloride 250 mL, Rate: No Longer Sugar 0.9% (titrate) 250 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 L and mL use with blood product administration , Dosing Weight 99.716, kg, Route: IV, Total Volume: 250, Start Date: 03/30/15 8:35:00, Duration: 30 day, Stop date: 04/29/15 8:34:00, Replace Every: 24 hr gabapentin 400 MG Notes: (Same No Longer Sugar Oral Capsule as: Neurontin) Active 2014 metoprolol Notes: (Same No Longer Sug ar tartrate as: Lopressor) Active 2014 Lisinopril Notes: (Same No Longer Sug ar as: Prinivil, Active 2014 Zestril) Flecainide Notes: (Same No Longer Sug ar as: Tambocor) Active 2014 digoxin 125 mcg Notes: Take on No Longer Sugar (0.125 mg) oral an Empty Active 2014 tablet Stomach (Same as: Lanoxin) digoxin 125 mcg 125 microgram Active Sugar (0.125 mg) oral = 1 tab, PO, 2014 Charles d tablet QAM, 0 Refill(s) folic acid 0.4 mg 0.4 mg = 1 Active [place] oral tablet tab, PO, QAM, 2014 [place] # 100 tab, 0 Refill(s) flecainide 150 mg 75 mg = 0.5 Active [place] oral tablet tab, PO, Q12H, 2014 0 Refill(s) gabapentin 400 MG 400 mg = 1 Active [place] Oral Capsule cap, PO, QAM, 2014 0 Refill(s) lisinopril 20 mg 10 mg = 0.5 Active [place] oral tablet tab, PO, BID, 2014 0 Refill(s) Vitamin B6 = 1 tab, PO, Active [place] BID, 0 2014 [place] Refill(s) Metoprolol 50 mg = 1 tab, Active Sug ar Tartrate 50 mg PO, BID, # 60 2014 [place] d oral tablet tab, 0 Refill(s) Vitamin B12 = 1 tab, PO, Active [place] BID, 0 2014 Refill(s) Aspirin 325 MG 325 mg = 1 Active [place] Oral Tablet tab, PO, QPM, 2014 0 Refill(s) tramadol 100 mg = 2 Active [place] hydrochloride 50 tab, PO, BID, 2014 L and MG Oral Tablet 0 Refill(s) Acetaminophen 325 Notes: Do not No Longer [place] MG / Hydrocodone exceed 4gm/day Active 2014 Bitartrate 10 MG of Oral Tablet [[place] acetaminophen. 10/325] (Same as: [place] 325/10) Acetaminophen 325 1 tab, Route: Inactive [place] MG / Hydrocodone PO, Drug Form: 2014 Bitartrate 10 MG TAB, Dosing Oral Tablet [[place] Weight 10/325] 106.818, kg, ONCE, STAT, Start date: 03/28/15 20:53:00, Stop date: 03/28/15 20:53:00 Docusate Notes: (Same No Longer [place] as: Colace) Active 2014 (Do Not Crush) Acetaminophen 325 Notes: (Same No Longer [place] MG / Hydrocodone as: [place] Active 2014 Bitartrate 5 MG 325/5) Do not Oral Tablet exceed 4gm/day of acetaminophen. Ondansetron Notes: (Same No Longer Sarkar gar as: Zofran) Active 2014 MEDICATION WASTE Product Size: 4 mg Product Wasted: ___ mg Hydromorphone Notes: (Same No Longer [place] as: Dilaudid) Active 2014 Saline Flush 0.9% Notes: (Same No Longer [place] as: BD Active 2014 Posiflush) Zosyn Notes: Infuse No Longer [place] over 4 hours. Active 2014 (same as: Zosyn) Zosyn 3.375 gm, Inactive [place] Route: IV, 2014 Q6H, Dosing Weight 106.818, kg, Start date: 03/28/15 15:11:00, Duration: 30 day, Stop date: 04/27/15 12:00:00 Omnipaque 300 Notes: (Same No Longer [place] as:Omnipaque Active 2014 300). normal saline 0.9% 500 mL, Rate: Inactive [place] IV 500 mL 500 ml/hr, 2014 Infuse over: 1 hr, Route: IV, Dosing Weight 106.818 kg, Total Volume: 500, Start date: 03/28/15 12:53:00, Duration: 1 doses or times, Stop date: 03/28/15 13:52:00 Saline Flush 0.9% Notes: (Same No Longer [place] as: BD Active 2014 Posiflush) Allergies, Adverse Reactions, Alerts Substance Category Reaction Severity Reaction Status Date Comments S ource type Reported hydrALAZINE Assertion Drug Active flushing M H <sup>1</sup allergy [place] > NKFA Assertion Food Active MH allergy [place] Immunizations Immunization Date Given Site Status Last Comments Source Updated influenza virus 10/06/2015 Right completed Jomaruanavin vaccine, deltoid [place], inactivated [facility] Results Order Name Results Value Reference Date Interpretation Comments Cristine rce Range MOLECULAR C difficile Negative Negative 11/12 DIAGNOSTIC DNA (11/12/18 8:47 AM) [place] CHEM PANEL eGFR 58 11/12 Result Comment: The [facility] eGFR is calculated using the CKD-EPI formula. In most young, healthy individuals the eGFR will be >90 mL/min/1.73m2 . The eGFR declines with age. An eGFR of 60-89 may be normal in some populations, particularly the elderly, for whom the CKD-EPI formula has not been extensively validated. Use of the eGFR is not recommended in the following populations:< br/>
Rissa viduals with unstable creatinine concentration s, including patients and those with serious co-morbid conditions.<b r/>
Patie nts with extremes in muscle mass or diet.

The data above are obtained from the National Kidney Disease Education Program (NKDEP) which additionally recommends that when the eGFR is used in patients with extremes of body mass index for purposes of drug dosing, the eGFR should be multiplied by the estimated BMI. CHEM PANEL Calcium Lvl 7.9 8.5 - 10.5 11/12 [place] CHEM PANEL CO2 24 24 - 32 11/12 /2017 [place] CHEM PANEL AGAP 10.2 10.0 - 11/12 20.0 /2017 [place] CHEM PANEL Chloride Lvl 105 95 - 109 11/12 [place] CHEM PANEL Glucose Lvl 94 70 - 99 11/12 [place] CHEM PANEL BUN 24 7 - 22 11/12 [place] CHEM PANEL Creatinine 1.19 0.50 - 11/12 MH Lvl 1.40 /2017 [place] CHEM PANEL Sodium Lvl 136 135 - 145 11/12 [place] CHEM PANEL Potassium 3.2 3.5 - 5.1 11/12 Lvl /2017 [place] HEMATOLOGY INR 1.15 0.85 - 11/12 1.17 /2017 [place] HEMATOLOGY PT 14.5 12.0 - 11/12 14.7 [place] HEMATOLOGY Monocytes 8.8 2.0 - 12.0 11/12 [place] HEMATOLOGY Lymphocytes 0.7 1.0 - 5.5 11/12 MH # /2017 [place] HEMATOLOGY Neutrophils 5.5 1.5 - 8.1 11/12 MH # /2017 [place] HEMATOLOGY Basophils 0.2 0.0 - 1.0 11/12 /2017 [place] HEMATOLOGY Lymphocytes 10.6 20.0 - 11/12 40.0 [place] HEMATOLOGY Segs 79.4 45.0 - 11/12 75.0 /2017 [place] HEMATOLOGY Eosinophils 0.1 0.0 - 0.5 11/12 # /2017 [place] HEMATOLOGY Monocytes # 0.6 0.0 - 0.8 11/12 [place] HEMATOLOGY Eosinophils 1.0 0.0 - 4.0 11/12 [place] HEMATOLOGY MPV 6.9 7.4 - 10.4 11/12 [place] HEMATOLOGY MCHC 34.2 32.0 - 11/12 36.0 [place] HEMATOLOGY RDW 14.4 11.5 - 11/12 14.5 [place] HEMATOLOGY Platelet 177 133 - 450 11/12 [place] HEMATOLOGY MCV 98.4 80.0 - 11/12 94.0 [place] HEMATOLOGY MCH 33.7 27.0 - 11/12 31.0 [place] HEMATOLOGY WBC 6.9 3.7 - 10.4 11/12 [place] HEMATOLOGY RBC 2.64 4.70 - 11/[address] [facility] HEMATOLOGY Hgb 8.9 14.0 - 11/[address] [facility] HEMATOLOGY Hct 26.0 42.0 - 11/[address] [facility] CARDIAC Troponin-I <0.02 0.00 - 11/[address] [facility] ELECTROLYT Sodium Lvl 138 135 - 145 11/[address] [facility] ELECTROLYT BUN 30 7 - 22 11/[address] [facility] ELECTROLYT Creatinine 1.75 0.50 - 11/11 MH ES Lvl 1.40 [facility] ELECTROLYT Potassium 4.0 3.5 - 5.1 11/11 ES Lvl /2017 [facility] ELECTROLYT Glucose Lvl 129 70 - 99 11/[address] [facility] ELECTROLYT Chloride Lvl 104 95 - 109 11/[address] [facility] ELECTROLYT eGFR 36 11/11 Comment: The [facility] eGFR is calculated using the CKD-EPI formula. In most young, healthy individuals the eGFR will be >90 mL/min/1.73m2 . The eGFR declines with age. An eGFR of 60-89 may be normal in some populations, particularly the elderly, for whom the CKD-EPI formula has not been extensively validated. Use of the eGFR is not recommended in the following populations:< br/>
Rissa viduals with unstable creatinine concentration s, including patients and those with serious co-morbid conditions.<b r/>
Patie nts with extremes in muscle mass or diet.

The data above are obtained from the National Kidney Disease Education Program (NKDEP) which additionally recommends that when the eGFR is used in patients with extremes of body mass index for purposes of drug dosing, the eGFR should be multiplied by the estimated BMI. ELECTROLYT AGAP 17.0 10.0 - 11/[address] [facility] ELECTROLYT Calcium Lvl 8.3 8.5 - 10.5 11/[address] [facility] ELECTROLYT CO2 21 24 - 32 11/[address] [facility] CARDIAC Troponin-I <0.02 0.00 - 11/[address] [facility] CHEM PANEL Lipase Lvl 86 73 - 393 11/11 [facility] CHEM PANEL Alk Phos 106 39 - 136 11/11 [facility] CHEM PANEL ALT 13 0 - 65 11/11 [place] CHEM PANEL AST 18 0 - 37 11/11 [place] CHEM PANEL Bili Total 0.4 0.2 - 1.3 11/11 [place] CHEM PANEL Bili Direct 0.2 0.0 - 0.3 11/11 [place] CHEM PANEL Albumin Lvl 3.1 3.5 - 5.0 11/11 [place] CHEM PANEL Total 6.6 6.4 - 8.4 11/11 [place] CHEM PANEL Bili 0.2 0.0 - 1.0 11/11 [place] CHEM PANEL A/G Ratio 0.9 0.7 - 1.6 11/11 [place] CHEM PANEL Globulin 3.5 2.7 - 4.2 11/11 [place] ELECTROLYT AGAP 13.0 10.0 - 11/[address] [facility] ELECTROLYT eGFR 26 11/11 Comment: The [facility] eGFR is calculated using the CKD-EPI formula. In most young, healthy individuals the eGFR will be >90 mL/min/1.73m2 . The eGFR declines with age. An eGFR of 60-89 may be normal in some populations, particularly the elderly, for whom the CKD-EPI formula has not been extensively validated. Use of the eGFR is not recommended in the following populations:< br/>
Rissa viduals with unstable creatinine concentration s, including patients and those with serious co-morbid conditions.<b r/>
Patie nts with extremes in muscle mass or diet.

The data above are obtained from the National Kidney Disease Education Program (NKDEP) which additionally recommends that when the eGFR is used in patients with extremes of body mass index for purposes of drug dosing, the eGFR should be multiplied by the estimated BMI. ELECTROLYT Sodium Lvl 133 135 - 145 11/[address] [facility] ELECTROLYT Calcium Lvl 8.0 8.5 - 10.5 11/11 [facility] ELECTROLYT CO2 23 24 - 32 11/[address] [facility] ELECTROLYT Chloride Lvl 101 95 - 109 11/11 [facility] ELECTROLYT Potassium 4.0 3.5 - 5.1 11/11 ES Lvl /2017 [place] ELECTROLYT Creatinine 2.28 0.50 - 11/11 ES Lvl 1.40 /2017 [place] ELECTROLYT BUN 28 7 - 22 11/11 ES [place] ELECTROLYT Glucose Lvl 129 70 - 99 11/11 MH ES /2017 [facility] HEMATOLOGY INR 2.02 0.85 - 11/11 MH 1.17 /2017 [place] HEMATOLOGY PT 22.4 12.0 - 11/11 MH 14.7 [place] HEMATOLOGY PTT 44.2 22.9 - 11/11 MH 35.8 /2017 [place] HEMATOLOGY MCH 33.6 27.0 - 11/11 MH 31.0 /2017 [facility] HEMATOLOGY Hgb 9.3 14.0 - 11/11 MH 18.0 /2017 [facility] HEMATOLOGY RBC 2.76 4.70 - 11/[address] [facility] HEMATOLOGY MCV 97.1 80.0 - 11/11 94.0 /2017 [facility] HEMATOLOGY Hct 26.8 42.0 - 11/11 MH 54.0 /2017 [facility] HEMATOLOGY Platelet 220 133 - 450 11/11 [facility] HEMATOLOGY RDW 14.3 11.5 - 11/11 MH 14.5 /2017 [facility] HEMATOLOGY MPV 7.2 7.4 - 10.4 11/11 [facility] HEMATOLOGY MCHC 34.6 32.0 - 11/11 MH 36.0 /2017 [facility] HEMATOLOGY WBC 7.6 3.7 - 10.4 11/11 [place] HEMATOLOGY Basophils 0.6 0.0 - 1.0 11/11 [facility] HEMATOLOGY Eosinophils 1.2 0.0 - 4.0 11/11 [facility] HEMATOLOGY Neutrophils 6.1 1.5 - 8.1 11/11 MH # /2017 [place] HEMATOLOGY Eosinophils 0.1 0.0 - 0.5 11/11 MH # /2017 [facility] HEMATOLOGY Monocytes 8.5 2.0 - 12.0 11/11 [facility] HEMATOLOGY Lymphocytes 8.9 20.0 - 11/[address] [facility] HEMATOLOGY Monocytes # 0.6 0.0 - 0.8 11/11 [facility] HEMATOLOGY Lymphocytes 0.7 1.0 - 5.5 11/11 MH # /2017 [facility] HEMATOLOGY Segs 80.8 45.0 - 11/11 MH 75.0 [place] CHEM PANEL Magnesium 1.6 1.8 - 2.4 06/03 [place] Lvl /2017 [place] CHEM PANEL Phosphorus 3.1 2.5 - 4.5 06/03 [place] ELECTROLYT AGAP 10.6 10.0 - 06/03 [place] ES 20.0 [place] ELECTROLYT eGFR 58 06/03 Result [place] ES Comment: The [place] eGFR is calculated using the CKD-EPI formula. In most young, healthy individuals the eGFR will be >90 mL/min/1.73m2 . The eGFR declines with age. An eGFR of 60-89 may be normal in some populations, particularly the elderly, for whom the CKD-EPI formula has not been extensively validated. Use of the eGFR is not recommended in the following populations:< br/>
Rissa viduals with unstable creatinine concentration s, including patients and those with serious co-morbid conditions.<b r/>
Patie nts with extremes in muscle mass or diet.

The data above are obtained from the National Kidney Disease Education Program (NKDEP) which additionally recommends that when the eGFR is used in patients with extremes of body mass index for purposes of drug dosing, the eGFR should be multiplied by the estimated BMI. ELECTROLYT Sodium Lvl 136 135 - 145 06/03 [place] ES [place] ELECTROLYT Creatinine 1.19 0.50 - 06/03 [place] ES Lvl 1.40 [place] ELECTROLYT BUN 22 7 - 22 06/03 [place] ES [place] ELECTROLYT CO2 29 24 - 32 06/03 [place] ES [place] ELECTROLYT Chloride Lvl 100 95 - 109 06/03 [place] ELECTROLYT Potassium 3.6 3.5 - 5.1 06/03 [place] ES Lvl [place] ELECTROLYT Glucose Lvl 93 70 - 99 06/03 [place] ES [place] ELECTROLYT Calcium Lvl 8.2 8.5 - 10.5 06/03 [place] ES [place] HEMATOLOGY Basophils # 0.0 0.0 - 0.2 06/03 [place] /2017 [place] HEMATOLOGY Neutrophils 3.9 1.5 - 8.1 06/03 [place] # /2017 [place] HEMATOLOGY Lymphocytes 12.1 20.0 - 06/03 [place] 40.0 [place] HEMATOLOGY Basophils 0.5 0.0 - 1.0 07/ [place] HEMATOLOGY Eosinophils 2.3 0.0 - 4.0 06/03 [place] /2017 [place] HEMATOLOGY Monocytes 9.9 2.0 - 12.0 06/03 [place] HEMATOLOGY Segs 75.2 45.0 - 06/03 [place] 75.0 [place] HEMATOLOGY Eosinophils 0.1 0.0 - 0.5 06/03 [place] # /2017 [place] HEMATOLOGY Lymphocytes 0.6 1.0 - 5.5 06/03 [place] # /2017 [place] HEMATOLOGY Monocytes # 0.5 0.0 - 0.8 06/03 [place] /2017 [place] HEMATOLOGY MPV 6.7 7.4 - 10.4 06/03 [place] HEMATOLOGY Platelet 205 133 - 450 06/03 [place] HEMATOLOGY RDW 14.8 11.5 - 06/03 [place] 14.5 [place] HEMATOLOGY MCHC 33.3 32.0 - 06/03 [place] 36.0 [place] HEMATOLOGY MCH 31.8 27.0 - 06/03 [place] 31.0 [place] HEMATOLOGY Hct 29.8 42.0 - 06/03 [place] 54.0 [place] HEMATOLOGY MCV 95.3 80.0 - 06/03 [place] 94.0 [place] HEMATOLOGY Hgb 9.9 14.0 - 06/03 [place] 18.0 [place] HEMATOLOGY WBC 5.2 3.7 - 10.4 06/03 [place] HEMATOLOGY RBC 3.13 4.70 - 06/03 [place] 6.10 [place] CHEM PANEL Phosphorus 4.3 2.5 - 4.5 06/02 [place] CHEM PANEL Magnesium 1.9 1.8 - 2.4 06/02 [place] Lvl [place] CHEM PANEL eGFR 49 06/02 Result Comment: The [place] eGFR is calculated using the CKD-EPI formula. In most young, healthy individuals the eGFR will be >90 mL/min/1.73m2 . The eGFR declines with age. An eGFR of 60-89 may be normal in some populations, particularly the elderly, for whom the CKD-EPI formula has not been extensively validated. Use of the eGFR is not recommended in the following populations:< br/>
Rissa viduals with unstable creatinine concentration s, including patients and those with serious co-morbid conditions.<b r/>
Patie nts with extremes in muscle mass or diet.

The data above are obtained from the National Kidney Disease Education Program (NKDEP) which additionally recommends that when the eGFR is used in patients with extremes of body mass index for purposes of drug dosing, the eGFR should be multiplied by the estimated BMI. CHEM PANEL AGAP 10.2 10.0 - 06/02 MH [place] 20.0 [place] CHEM PANEL Potassium 3.2 3.5 - 5.1 06/02 MH [place] Lvl /2017 [place] CHEM PANEL Chloride Lvl 97 95 - 109 06/02 MH [place] CHEM PANEL Calcium Lvl 8.6 8.5 - 10.5 06/02 [place] CHEM PANEL CO2 30 24 - 32 06/02 MH [place] CHEM PANEL Sodium Lvl 134 135 - 145 06/02 [place] CHEM PANEL BUN 25 7 - 22 06/02 [place] CHEM PANEL Creatinine 1.38 0.50 - 06/02 MH [place] Lvl 1.40 [place] CHEM PANEL Glucose Lvl 100 70 - 99 06/02 [place] CHEM PANEL Phosphorus 2.4 2.5 - 4.5 04/13 [place] CHEM PANEL eGFR 71 04/13 Result MH Comment: The [facility] eGFR is calculated using the CKD-EPI formula. In most young, healthy individuals the eGFR will be >90 mL/min/1.73m2 . The eGFR declines with age. An eGFR of 60-89 may be normal in some populations, particularly the elderly, for whom the CKD-EPI formula has not been extensively validated. Use of the eGFR is not recommended in the following populations:< br/>
Rissa viduals with unstable creatinine concentration s, including patients and those with serious co-morbid conditions.<b r/>
Patie nts with extremes in muscle mass or diet.

The data above are obtained from the National Kidney Disease Education Program (NKDEP) which additionally recommends that when the eGFR is used in patients with extremes of body mass index for purposes of drug dosing, the eGFR should be multiplied by the estimated BMI. CHEM PANEL AST 12 0 - 37 04/13 [place] CHEM PANEL ALT 11 0 - 65 04/13 [place] CHEM PANEL Bili Total 0.4 0.2 - 1.3 04/13 [place] CHEM PANEL Alk Phos 69 39 - 136 04/13 [place] CHEM PANEL BUN 23 7 - 22 04/13 [place] CHEM PANEL Glucose Lvl 87 70 - 99 04/13 [place] CHEM PANEL Creatinine 1.01 0.50 - 04/13 [place] Lvl 1.40 /2017 [place] CHEM PANEL Sodium Lvl 142 135 - 145 04/13 [place] CHEM PANEL Chloride Lvl 109 95 - 109 04/13 [place] CHEM PANEL Potassium 3.4 3.5 - 5.1 04/13 [place] CHEM PANEL Total 5.6 6.4 - 8.4 04/13 [place] CHEM PANEL CO2 25 24 - 32 04/13 [place] CHEM PANEL Calcium Lvl 7.5 8.5 - 10.5 04/13 [place] CHEM PANEL Albumin Lvl 2.7 3.5 - 5.0 04/13 [place] CHEM PANEL AGAP 11.4 10.0 - 04/13 [place] 20.0 [place] CHEM PANEL Globulin 2.9 2.7 - 4.2 04/13 [place] CHEM PANEL B/C Ratio 23 6 - 25 04/13 [place] CHEM PANEL A/G Ratio 0.9 0.7 - 1.6 04/13 [place] CHEM PANEL Magnesium 1.7 1.8 - 2.4 04/13 [place] HEMATOLOGY WBC 3.4 3.7 - 10.4 04/13 [place] HEMATOLOGY RBC 2.38 4.70 - 04/13 [place] 6.10 [place] HEMATOLOGY Hgb 8.1 14.0 - 04/13 [place] 18.0 [place] HEMATOLOGY Hct 23.5 42.0 - 04/13 [place] 54.0 [place] HEMATOLOGY MCV 98.9 80.0 - 04/13 [place] 94.0 [place] HEMATOLOGY MCHC 34.5 32.0 - 04/13 [place] 36.0 [place] HEMATOLOGY MCH 34.1 27.0 - 04/13 [place] 31.0 [place] HEMATOLOGY RDW 16.7 11.5 - 04/13 [place] 14.5 [place] HEMATOLOGY Platelet 194 133 - 450 04/13 MH [place] /2017 [place] HEMATOLOGY MPV 6.1 7.4 - 10.4 04/13 [place] /2017 [place] HEMATOLOGY Eosinophils 2.4 0.0 - 4.0 04/13 [place] HEMATOLOGY Lymphocytes 20.3 20.0 - 04/13 [place] 40.0 [place] HEMATOLOGY Monocytes 11.0 2.0 - 12.0 04/13 [place] /2017 [place] HEMATOLOGY Lymphocytes 0.7 1.0 - 5.5 04/13 [place] # /2017 [place] HEMATOLOGY Segs 66.0 45.0 - 04/13 [place] 75.0 [place] HEMATOLOGY Eosinophils 0.1 0.0 - 0.5 04/13 [place] # [facility] HEMATOLOGY Segs-Bands # 2.3 1.5 - 8.1 04/13 [place] HEMATOLOGY Basophils 0.3 0.0 - 1.0 04/13 [place] HEMATOLOGY Monocytes # 0.4 0.0 - 0.8 04/13 [place] HEMATOLOGY Basophils # 0.0 0.0 - 0.2 04/13 [place] [facility] ANEMIA Folate Lvl 17.1 >=3.0 04/12 [place] STUDY ng/mL [facility] ANEMIA Vitamin B12 852 254 - 1320 04/12 [place] STUDY [facility] CHEM PANEL VITAMIN B1 101.9 66.5 - 04/12 Result [place] (THIAMINE) 200.0 2018 Comment: [facility] WHOLE BLOOD
This test was developed and its performance characteristi cs
determ ined by [facility]. It has not been cleared or
approv ed by the Food and Drug Administratio n.
Perfor med At: [facility] [place]
[address], [place] [id number]< br/>Sukhjinder Magana MD Ph:[phone] CHEM PANEL Magnesium 1.7 1.8 - 2.4 04/12 [place] Lvl [facility] CHEM PANEL Phosphorus 3.2 2.5 - 4.5 04/12 [place] /2017 [place] ELECTROLYT AGAP 12.0 10.0 - 04/12 MH [place] ES 20.0 [place] ELECTROLYT B/C Ratio 22 6 - 25 04/12 [place] ELECTROLYT Globulin 3.1 2.7 - 4.2 04/12 [place] ELECTROLYT A/G Ratio 1.0 0.7 - 1.6 04/12 [place] ELECTROLYT Bili Total 0.5 0.2 - 1.3 04/12 [place] ELECTROLYT Alk Phos 84 39 - 136 04/12 [place] ELECTROLYT Albumin Lvl 3.1 3.5 - 5.0 04/12 [place] ELECTROLYT eGFR 57 04/12 [place] Comment: The [place] eGFR is calculated using the CKD-EPI formula. In most young, healthy individuals the eGFR will be >90 mL/min/1.73m2 . The eGFR declines with age. An eGFR of 60-89 may be normal in some populations, particularly the elderly, for whom the CKD-EPI formula has not been extensively validated. Use of the eGFR is not recommended in the following populations:< br/>
Rissa viduals with unstable creatinine concentration s, including patients and those with serious co-morbid conditions.<b r/>
Patie nts with extremes in muscle mass or diet.

The data above are obtained from the National Kidney Disease Education Program (NKDEP) which additionally recommends that when the eGFR is used in patients with extremes of body mass index for purposes of drug dosing, the eGFR should be multiplied by the estimated BMI. ELECTROLYT Total 6.2 6.4 - 8.4 04/12 MH [place] ELECTROLYT Calcium Lvl 7.8 8.5 - 10.5 04/12 [place] ELECTROLYT AST 14 0 - 37 04/12 MH [place] ELECTROLYT ALT 12 0 - 65 04/12 MH [place] ELECTROLYT Chloride Lvl 103 95 - 109 04/12 [place] ELECTROLYT CO2 26 24 - 32 04/12 [place] ELECTROLYT Sodium Lvl 137 135 - 145 04/12 [place] ELECTROLYT Potassium 4.0 3.5 - 5.1 04/12 [place] ES Lvl /2017 [place] ELECTROLYT BUN 27 7 - 22 04/12 [place] ES 2018 [place] ELECTROLYT Glucose Lvl 108 70 - 99 04/12 [place] ES /2017 [place] ELECTROLYT Creatinine 1.21 0.50 - 05 [place] Lvl 1.40 /2017 [place] HEMATOLOGY Eosinophils 0.1 0.0 - 0.5 04/12 [place] # /2017 [place] HEMATOLOGY Monocytes # 0.2 0.0 - 0.8 04/12 [place] /2017 [place] HEMATOLOGY Basophils # 0.0 0.0 - 0.2 04/12 [place] /2017 [place] HEMATOLOGY Monocytes 3.8 2.0 - 12.0 04/12 [place] HEMATOLOGY Eosinophils 1.2 0.0 - 4.0 04/12 [place] HEMATOLOGY Basophils 0.2 0.0 - 1.0 04/12 [place] HEMATOLOGY Lymphocytes 0.5 1.0 - 5.5 04/12 [place] # /2017 [place] HEMATOLOGY Segs-Bands # 3.7 1.5 - 8.1 04/12 [place] /2017 [place] HEMATOLOGY Lymphocytes 11.7 20.0 - 04/12 [place] 40.0 [place] HEMATOLOGY Segs 83.1 45.0 - 04/12 [place] 75.0 [place] HEMATOLOGY PTT 31.6 22.9 - 04/12 [place] 35.8 [place] HEMATOLOGY PT 14.0 12.0 - 04/12 [place] 14.7 [place] HEMATOLOGY INR 1.08 0.85 - 04/12 [place] 1.17 [place] HEMATOLOGY WBC 4.4 3.7 - 10.4 04/12 [place] /2018 [place] HEMATOLOGY RBC 2.62 4.70 - 04/12 [place] 6.10 [place] HEMATOLOGY MCV 99.1 80.0 - 04/12 [place] 94.0 [place] HEMATOLOGY Hct 26.0 42.0 - 04/12 [place] 54.0 [place] HEMATOLOGY Hgb 9.0 14.0 - 04/12 [place] 18.0 [place] HEMATOLOGY MCH 34.5 27.0 - 04/12 [place] 31.0 [place] HEMATOLOGY MCHC 34.8 32.0 - 04/12 [place] 36.0 [place] HEMATOLOGY Platelet 198 133 - 450 04/12 [place] /2018 [place] HEMATOLOGY RDW 17.1 11.5 - 04/12 [place] 14.5 /2017 [place] HEMATOLOGY MPV 6.5 7.4 - 10.4 04/12 [place] CARDIAC Troponin-I <0.02 0.00 - 04/12 MH [place] ENZYMES 0.40 [place] CARDIAC Total CK 55 12 - 191 04/12 [place] ENZYMES [place] CARDIAC Troponin-I <0.02 0.00 - 04/12 [place] ENZYMES 0.40 [place] CARDIAC Total CK 65 12 - 191 04/12 [place] ENZYMES [place] URINE AND UA <=1.0 0.1 - 1.0 04/11 [place] STOOL Urobilinogen mg/dL /2017 [place] URINE AND UA Hyal Cast 12 0 - 2 04/11 [place] STOOL [place] URINE AND UA Ketones Negative Negative 04/11 [place] STOOL mg/dL mg/dL [place] URINE AND UA Bili Negative Negative 04/11 [place] STOOL *NA* /2017 [place] (04/11/18 3:19 PM) URINE AND UA Glucose Negative Negative 04/11 [place] STOOL mg/dL mg/dL [place] URINE AND UA Blood Negative Negative 04/11 [place] STOOL (04/11/18 3:19 PM) [place] URINE AND UA Nitrite Negative Negative 04/11 [place] STOOL (04/11/18 3:19 PM) [place] URINE AND UA Leuk Est Negative Negative 04/11 [place] STOOL (04/11/18 3:19 PM) [place] URINE AND UA Mucus Few /LPF None Seen 04/11 [place] ST[place]OL /LPF /2017 [place] URINE AND UA RBC 1 0 - 2 04/11 [place] STOOL [place] URINE AND UA Sq Epi None Seen 04/11 [place] STOOL [place] URINE AND UA Color Light Yellow Yellow 04/11 [place] STOOL *NA* /2017 [place] (04/11/18 3:19 PM) URINE AND UA Turbidity Clear Clear 04/11 [place] STOOL (04/11/18 3:19 PM) [place] URINE AND UA pH 5.0 5.0 - 8.0 04/11 [place] STOOL [place] URINE AND UA Protein Negative Negative 04/11 [place] STOOL mg/dL mg/dL [place] URINE AND UA Spec Grav 1.009 <=1.030 04/11 [place] STOOL [place] CARDIAC CK MB 0.6 0.5 - 3.6 05/ MH [place] ENZYMES /2018 [facility] CARDIAC Total CK 70 12 - 191 05/ MH [place] ENZYMES [facility] CARDIAC Troponin-I <0.02 0.00 - 05/25 MH [place] ENZYMES 0.40 /2017 [facility] CARDIAC CK MB Index 0.9 0.0 - 2.5 05/ MH [place] ENZYMES 2018 [place] CHEM PANEL eGFR 42 05 Result MH [place] Comment: The [facility] eGFR is calculated using the CKD-EPI formula. In most young, healthy individuals the eGFR will be >90 mL/min/1.73m2 . The eGFR declines with age. An eGFR of 60-89 may be normal in some populations, particularly the elderly, for whom the CKD-EPI formula has not been extensively validated. Use of the eGFR is not recommended in the following populations:< br/>
Rissa viduals with unstable creatinine concentration s, including patients and those with serious co-morbid conditions.<b r/>
Patie nts with extremes in muscle mass or diet.

The data above are obtained from the National Kidney Disease Education Program (NKDEP) which additionally recommends that when the eGFR is used in patients with extremes of body mass index for purposes of drug dosing, the eGFR should be multiplied by the estimated BMI. CHEM PANEL A/G Ratio 0.9 0.7 - 1.6 05/ [facility] [place] CHEM PANEL Glucose Lvl 98 70 - 99 / [facility] [place] CHEM PANEL AGAP 12.9 10.0 - 05/ [facility] [place] 20.0 /2017 [place] CHEM PANEL Globulin 3.4 2.7 - 4.2 05/ [facility] [place] CHEM PANEL B/C Ratio 20 6 - 25 05/25 [facility] [place] /2018 [place] CHEM PANEL BUN 31 7 - 22 05/ [facility] [place] CHEM PANEL Creatinine 1.58 0.50 - 05/25 [facility] [place] Lvl 1.40 /2017 [place] CHEM PANEL Potassium 3.9 3.5 - 5.1 05/25 [facility] [place] Lvl /2018 [place] CHEM PANEL Chloride Lvl 97 95 - 109 05/25 [facility] [place] /2017 [place] CHEM PANEL Sodium Lvl 133 135 - 145 05/25 [facility] [place] CHEM PANEL AST 15 0 - 37 05/25 [facility] [place] CHEM PANEL ALT 13 0 - 65 05/25 [facility] [place] /2018 [place] CHEM PANEL Albumin Lvl 3.2 3.5 - 5.0 05/25 [facility] [place] /2017 [place] CHEM PANEL Bili Total 0.7 0.2 - 1.3 05/25 [facility] [place] /2018 [place] CHEM PANEL Alk Phos 82 39 - 136 05/ [facility] [place] CHEM PANEL CO2 27 24 - 32 05/25 [facility] [place] CHEM PANEL Total 6.6 6.4 - 8.4 05/25 [facility] [place] Protein [place] CHEM PANEL Calcium Lvl 8.1 8.5 - 10.5 05/25 [facility] [place] /2017 [place] ENDOCRINOL Cortisol 11.7 05/25 [facility] [place] OGY /2017 [place] HEMATOLOGY PT 13.5 12.0 - 05 [facility] [place] 14.7 /2017 [place] HEMATOLOGY INR 1.03 0.85 - 05 [place] 1.17 [place] HEMATOLOGY MPV 7.1 7.4 - 10.4 05 [facility] [place] HEMATOLOGY Platelet 202 133 - 450 05 [facility] [place] HEMATOLOGY RDW 17.8 11.5 - 05 [place] 14.5 /2017 [place] HEMATOLOGY Hct 25.4 42.0 - 05 [facility] 54.0 /2017 [place] HEMATOLOGY MCHC 34.4 32.0 - 05 [place] 36.0 /2017 [place] HEMATOLOGY MCH 34.3 27.0 - 05 [place] 31.0 /2017 [place] HEMATOLOGY MCV 99.9 80.0 - 04/11 [place] 94.0 [place] HEMATOLOGY Hgb 8.7 14.0 - 05 [place] 18.0 [place] HEMATOLOGY RBC 2.55 4.70 - 0525 [place] 6.10 [place] HEMATOLOGY WBC 6.6 3.7 - 10.4 05 [facility] [place] /2018 [place] HEMATOLOGY PTT 33.5 22.9 - 05/25 [facility] [place] 35.8 /2018 [place] HEMATOLOGY Basophils # 0.0 0.0 - 0.2 05/25 [facility] [place] /2018 [place] HEMATOLOGY Monocytes # 0.7 0.0 - 0.8 05/25 [facility] [place] /2017 [place] HEMATOLOGY Eosinophils 0.4 0.0 - 0.5 05/25 [facility] [place] # /2017 [place] HEMATOLOGY Lymphocytes 0.7 1.0 - 5.5 05/25 [facility] [place] # /2018 [place] HEMATOLOGY Segs-Bands # 4.8 1.5 - 8.1 04/11 [place] [facility] /2017 [place] HEMATOLOGY Basophils 0.2 0.0 - 1.0 04/11 [place] HEMATOLOGY Monocytes 10.1 2.0 - 12.0 04/11 [place] HEMATOLOGY Lymphocytes 10.8 20.0 - 04/11 [facility] [place] 40.0 [place] HEMATOLOGY Segs 72.4 45.0 - 04/11 [facility] [place] 75.0 [place] HEMATOLOGY Eosinophils 6.5 0.0 - 4.0 04/11 [place] /2017 [place] HEMATOLOGY PTT 47.0 22.9 - 09/05 [place] 35.8 [place] CHEM PANEL A/G Ratio 0.9 0.7 - 1.6 09/05 [place] CHEM PANEL Globulin 3.4 2.7 - 4.2 09/05 [place] CHEM PANEL B/C Ratio 25 6 - 25 09/05 [place] CHEM PANEL AGAP 12.9 10.0 - 09/05 [place] 20.0 [place] CHEM PANEL eGFR 80 09/05 Comment: [place] eGFR is calculated using the CKD-EPI formula. In most young, healthy individuals the eGFR will be >90 mL/min/1.73m2 . The eGFR declines with age. An eGFR of 60-89 may be normal in some populations, particularly the elderly, for whom the CKD-EPI formula has not been extensively validated. Use of the eGFR is not recommended in the following populations:< br/>
Rissa viduals with unstable creatinine concentration s, including patients and those with serious co-morbid conditions.<b r/>
Patie nts with extremes in muscle mass or diet.

The data above are obtained from the National Kidney Disease Education Program (NKDEP) which additionally recommends that when the eGFR is used in patients with extremes of body mass index for purposes of drug dosing, the eGFR should be multiplied by the estimated BMI. CHEM PANEL Alk Phos 78 39 - 136 09/05 [place] CHEM PANEL AST 14 0 - 37 09/05 [place] CHEM PANEL Bili Total 0.6 0.2 - 1.3 09/05 [place] CHEM PANEL ALT 12 0 - 65 09/05 [place] 2016 [place] CHEM PANEL Albumin Lvl 3.1 3.5 - 5.0 09/05 [place] CHEM PANEL Total 6.5 6.4 - 8.4 09/05 [place] CHEM PANEL CO2 27 24 - 32 09/05 [place] CHEM PANEL Chloride Lvl 106 95 - 109 09/05 [place] CHEM PANEL Calcium Lvl 8.7 8.5 - 10.5 09/05 [place] CHEM PANEL Potassium 3.9 3.5 - 5.1 09/05 [place] Lvl /2015 [place] CHEM PANEL Glucose Lvl 112 70 - 99 09/05 [place] CHEM PANEL BUN 23 7 - 22 09/05 [place] CHEM PANEL Creatinine 0.93 0.50 - 09/05 [place] Lvl 1.40 /2015 [place] CHEM PANEL Sodium Lvl 142 135 - 145 09/05 [place] CHEM PANEL Phosphorus 3.2 2.5 - 4.5 09/05 [place] CHEM PANEL Magnesium 1.6 1.8 - 2.4 09/05 [place] Lvl [place] HEMATOLOGY Basophils # 0.0 0.0 - 0.2 09/05 [place] /2015 [place] HEMATOLOGY Monocytes 7.8 2.0 - 12.0 09/05 [place] HEMATOLOGY Lymphocytes 32.6 20.0 - 09/05 [place] 40.0 /2015 [place] HEMATOLOGY Eosinophils 0.2 0.0 - 0.5 09/05 [place] # /2015 [place] HEMATOLOGY Monocytes # 0.5 0.0 - 0.8 09/05 [place] /2016 [place] HEMATOLOGY Lymphocytes 2.1 1.0 - 5.5 09/05 [place] # /2015 [place] HEMATOLOGY Segs 56.2 45.0 - 09/05 [place] 75.0 /2015 [place] HEMATOLOGY Segs-Bands # 3.5 1.5 - 8.1 09/05 [place] /2015 [place] HEMATOLOGY Basophils 0.6 0.0 - 1.0 09/05 [place] HEMATOLOGY Eosinophils 2.8 0.0 - 4.0 09/05 [place] /2015 [place] HEMATOLOGY MCV 87.6 80.0 - 09/05 [place] 94.0 /2016 [place] HEMATOLOGY Hct 35.6 42.0 - 09/05 [facility] [place] 54.0 /2015 [place] HEMATOLOGY MPV 7.4 7.4 - 10.4 09/05 [place] /2015 [place] HEMATOLOGY RBC 4.06 4.70 - 09/05 [facility] [place] 6.10 [place] HEMATOLOGY Hgb 11.6 14.0 - 09/05 [facility] [place] 18.0 /2015 [place] HEMATOLOGY WBC 6.3 3.7 - 10.4 09/05 [place] /2015 [place] HEMATOLOGY RDW 16.6 11.5 - 09/05 [facility] [place] 14.5 /2015 [place] HEMATOLOGY Platelet 221 133 - 450 09/05 [place] /2015 [place] HEMATOLOGY MCHC 32.6 32.0 - 09/05 [facility] [place] 36.0 /2015 [place] HEMATOLOGY MCH 28.5 27.0 - 09/05 [facility] [place] 31.0 /2015 [place] PARATHYROI Ca Norm WB 1.19 1.05 - 09/05 [facility] [place] PROFILE 1. [place] PARATHYROI Ca Ion WB 1.14 1.05 - 09/05 [facility] [place] PROFILE 1. [place] HEMATOLOGY PTT 48.6 22.9 - 09/05 [facility] [place] 35.8 /2015 [place] URINE AND UA Blood Negative Negative 09/05 [place] [facility] (09/04/16 8:38 PM) /2015 [place] URINE AND UA Leuk Est Negative Negative 09/05 [place] [facility] (09/04/16 8:38 PM) [place] URINE AND UA Nitrite Negative Negative 09/05 [place] [facility] (09/04/16 8:38 PM) /2015 [place] URINE AND UA <=1.0 0.1 - 1.0 09/05 [place] [facility] Urobilinogen mg/dL /2015 [place] URINE AND UA Sq Epi None Seen 09/05 [place] [facility] /2015 [place] URINE AND UA RBC 1 0 - 2 09/05 [place] [facility] /2015 [place] URINE AND UA WBC 1 0 - 5 09/05 [place] [facility] /2015 [place] URINE AND UA Mucus Few /LPF None Seen 09/05 [place] [facility] /LPF /2015 [place] URINE AND UA Bili Negative Negative 09/05 [place] [facility] *NA* /2015 [place] (09/04/16 8:38 PM) URINE AND UA Turbidity Clear Clear 09/05 [place] [facility] (09/04/16 8:38 PM) /2015 [place] URINE AND UA Spec Grav 1.009 <=1.030 09/05 [place] [facility] [place] URINE AND UA pH 6.0 5.0 - 8.0 09/05 [place] [facility] [place] URINE AND UA Protein Negative Negative 09/05 [place] [facility] mg/dL mg/dL [place] URINE AND UA Glucose Negative Negative 09/05 [place] [facility] mg/dL mg/dL [place] URINE AND UA Ketones Negative Negative 09/05 [place] [facility] mg/dL mg/dL [place] URINE AND UA Color Light Yellow Yellow 09/05 [place] [facility] *NA* /2015 [place] (09/04/16 8:38 PM) BACTERIAL MRSA by PCR Negative 09/05 [facility] - SEROLOGY (09/04/16 7:56 PM) /[place] HEM[place] Monocytes 8.1 2.0 - 12.0 09/04 [place] /2015 [place] HEMATOLOGY Eosinophils 1.8 0.0 - 4.0 09/04 [place] HEMATOLOGY Segs-Bands # 4.6 1.5 - 8.1 09/04 [place] /2015 [place] HEMATOLOGY Basophils 0.5 0.0 - 1.0 09/04 [facility] [place] /2016 [place] HEMATOLOGY Lymphocytes 26.9 20.0 - 09/04 [place] 40.0 /2015 [place] HEMATOLOGY Monocytes # 0.6 0.0 - 0.8 09/04 [place] /2015 [place] HEMATOLOGY Lymphocytes 2.0 1.0 - 5.5 09/04 [facility] [place] # /2015 [place] HEMATOLOGY Eosinophils 0.1 0.0 - 0.5 09/04 [place] # /2015 [place] HEMATOLOGY Basophils # 0.0 0.0 - 0.2 09/04 [place] /2015 [place] HEMATOLOGY Segs 62.7 45.0 - 09/04 [place] 75.0 /2015 [place] HEMATOLOGY PT 13.7 12.0 - 09/04 [place] 14.7 /2016 [place] HEMATOLOGY INR 1.03 0.85 - 09/04 [place] 1.17 /2015 [place] HEMATOLOGY PTT 33.9 22.9 - 09/04 [place] 35.8 /2015 [place] HEMATOLOGY MCHC 33.0 32.0 - 09/04 [place] 36.0 /2015 [place] HEMATOLOGY Hgb 12.1 14.0 - 09/04 [place] 18.0 /2015 [place] HEMATOLOGY Platelet 218 133 - 450 09/04 [place] /2016 [place] HEMATOLOGY RDW 16.6 11.5 - 09/04 [facility] [place] 14.5 /2016 [place] HEMATOLOGY RBC 4.21 4.70 - 09/04 [facility] [place] 6.10 [place] HEMATOLOGY WBC 7.4 3.7 - 10.4 09/04 [facility] [place] /2015 [place] HEMATOLOGY MCV 86.7 80.0 - 09/04 [facility] [place] 94.0 /2015 [place] HEMATOLOGY MCH 28.6 27.0 - 09/04 [facility] [place] 31.0 /2015 [place] HEMATOLOGY Hct 36.5 42.0 - 09/04 [facility] [place] 54.0 [place] HEMATOLOGY MPV 7.8 7.4 - 10.4 09/04 [facility] [place] CHEM PANEL eGFR 76 09/04 Result [facility] Comment: [facility] [place] eGFR is calculated using the CKD-EPI formula. In most young, healthy individuals the eGFR will be >90 mL/min/1.73m2 . The eGFR declines with age. An eGFR of 60-89 may be normal in some populations, particularly the elderly, for whom the CKD-EPI formula has not been extensively validated. Use of the eGFR is not recommended in the following populations:< br/>
Rissa viduals with unstable creatinine concentration s, including patients and those with serious co-morbid conditions.<b r/>
Patie nts with extremes in muscle mass or diet.

The data above are obtained from the National Kidney Disease Education Program (NKDEP) which additionally recommends that when the eGFR is used in patients with extremes of body mass index for purposes of drug dosing, the eGFR should be multiplied by the estimated BMI. CHEM PANEL CO2 27 24 - 32 09/04 [facility] [place] CHEM PANEL Chloride Lvl 102 95 - 109 09/04 [facility] [place] CHEM PANEL Potassium 3.4 3.5 - 5.1 09/04 [facility] [place] Lvl /2016 [place] CHEM PANEL Calcium Lvl 8.7 8.5 - 10.5 09/04 [facility] [place] /2015 [place] CHEM PANEL AGAP 13.4 10.0 - 09/04 [facility] [place] 20.0 [place] CHEM PANEL Sodium Lvl 139 135 - 145 09/04 [facility] [place] 2016 [place] CHEM PANEL Creatinine 0.96 0.50 - 09/04 [facility] [place] Lvl 1.40 /2015 [place] CHEM PANEL BUN 29 7 - 22 09/04 [facility] [place] CHEM PANEL Glucose Lvl 96 70 - 99 09/04 [place] ELECTROLYT AGAP 11.7 10.0 - 09/03 [place] 20.0 [place] ELECTROLYT eGFR 71 09/03 [facility] Comment: [place] eGFR is calculated using the CKD-EPI formula. In most young, healthy individuals the eGFR will be >90 mL/min/1.73m2 . The eGFR declines with age. An eGFR of 60-89 may be normal in some populations, particularly the elderly, for whom the CKD-EPI formula has not been extensively validated. Use of the eGFR is not recommended in the following populations:< br/>
Rissa viduals with unstable creatinine concentration s, including patients and those with serious co-morbid conditions.<b r/>
Patie nts with extremes in muscle mass or diet.

The data above are obtained from the National Kidney Disease Education Program (NKDEP) which additionally recommends that when the eGFR is used in patients with extremes of body mass index for purposes of drug dosing, the eGFR should be multiplied by the estimated BMI. ELECTROLYT CO2 29 24 - 32 09/03 [place] ELECTROLYT Glucose Lvl 96 70 - 99 09/03 [place] ELECTROLYT Creatinine 1.02 0.50 - 09/03 [place] Lvl 1.40 [place] ELECTROLYT Sodium Lvl 140 135 - 145 09/03 [place] ELECTROLYT Potassium 3.7 3.5 - 5.1 09/03 [place] Lvl [place] ELECTROLYT Chloride Lvl 103 95 - 109 09/03 [place] ELECTROLYT Calcium Lvl 9.0 8.5 - 10.5 09/03 [place] ELECTROLYT BUN 29 7 - 22 09/03 [place] HEMATOLOGY Eosinophils 2.1 0.0 - 4.0 09/03 [place] HEMATOLOGY Monocytes 6.6 2.0 - 12.0 09/03 [place] /2015 [place] HEMATOLOGY Lymphocytes 20.5 20.0 - 09/03 [place] 40.0 [place] HEMATOLOGY Segs 70.3 45.0 - 09/03 [place] 75.0 /2015 [place] HEMATOLOGY Segs-Bands # 6.2 1.5 - 8.1 09/03 [facility] [place] /2015 [place] HEMATOLOGY Basophils 0.5 0.0 - 1.0 09/03 [facility] [place] /2015 [place] HEMATOLOGY Basophils # 0.0 0.0 - 0.2 09/03 [facility] [place] /2015 [place] HEMATOLOGY Lymphocytes 1.8 1.0 - 5.5 09/03 [facility] [place] # /2015 [place] HEMATOLOGY Eosinophils 0.2 0.0 - 0.5 09/03 [facility] [place] # /2015 [place] HEMATOLOGY Monocytes # 0.6 0.0 - 0.8 09/03 [facility] [place] /2015 [place] HEMATOLOGY Platelet 195 133 - 450 09/03 [facility] [place] /2015 [place] HEMATOLOGY MPV 8.0 7.4 - 10.4 09/03 [facility] [place] /2015 [place] HEMATOLOGY MCHC 33.0 32.0 - 09/03 [facility] [place] 36.0 /2015 [place] HEMATOLOGY RDW 16.2 11.5 - 09/03 [facility] [place] 14.5 [place] HEMATOLOGY MCH 28.6 27.0 - 09/03 [facility] [place] 31.0 [place] HEMATOLOGY MCV 86.7 80.0 - 09/03 [facility] [place] 94.0 /2015 [place] HEMATOLOGY Hct 37.0 42.0 - 09/03 [facility] [place] 54.0 /2015 [place] HEMATOLOGY Hgb 12.2 14.0 - 09/03 [facility] [place] 18.0 [place] HEMATOLOGY RBC 4.26 4.70 - 09/03 [facility] [place] 6. [place] HEMATOLOGY WBC 8.8 3.7 - 10.4 09/03 [facility] [place] /2015 [place] CARDIAC Total CK 90 12 - 191 09/02 [facility] [place] ENZYMES /2015 [place] CARDIAC Troponin-I 0.02 0.00 - 09/02 [facility] [place] 0. [place] CARDIAC CK MB 1.8 0.5 - 3.6 09/02 [facility] [place] [facility] /2016 [place] CARDIAC CK MB Index 2.0 0.0 - 2.5 09/02 [facility] [place] [facility] /2015 [place] CARDIAC Total CK 102 12 - 191 09/01 [facility] [place] [facility] /2015 [place] CARDIAC Troponin-I <0.02 0.00 - 09/01 [facility] [place] ENZYMES 0.40 [place] CARDIAC CK MB Index 2.4 0.0 - 2.5 09/01 [facility] [place] [facility] /2016 [place] CARDIAC CK MB 2.4 0.5 - 3.6 09/01 [facility] [place] [facility] /2015 [place] TOXICOLOGY Flecainide None 0.20 - 09/01 [facility] [place] Lvl Detected 1.00 Comment: [place] Detection Limit = 0.10
Perf ormed At: [facility] [place]
[address], [place] [id number]<br/ >Sukhjinder Magana MD Ph:[phone] CARDIAC BNP 159 <=100 09/01 [place] ENZYMES pg/mL /2015 [facility] CARDIAC Total CK 158 12 - 191 09/01 [place] [facility] /2015 [place] CARDIAC Troponin-I <0.02 0.00 - 09/01 [place] ENZYMES 0.40 /2015 [place] CARDIAC CK MB 1.8 0.5 - 3.6 09/01 [place] [facility] /2015 [place] CARDIAC CK MB Index 1.1 0.0 - 2.5 09/01 [place] [facility] /2015 [place] CHEM PANEL ALT 19 0 - 65 09/01 [place] CHEM PANEL Total 7.8 6.4 - 8.4 09/01 [place] CHEM PANEL AST 37 0 - 37 09/01 [place] CHEM PANEL Albumin Lvl 3.7 3.5 - 5.0 09/01 [place] /2015 [place] CHEM PANEL Alk Phos 92 39 - 136 09/01 [place] /2015 [place] CHEM PANEL B/C Ratio 22 6 - 25 09/01 [place] CHEM PANEL Bili Total 0.6 0.2 - 1.3 09/01 [place] /2015 [place] CHEM PANEL Globulin 4.1 2.7 - 4.2 09/01 [place] CHEM PANEL A/G Ratio 0.9 0.7 - 1.6 09/01 [place] HEMATOLOGY INR 0.95 0.85 - 09/01 [place] 1.17 /2015 [place] HEMATOLOGY PT 12.9 12.0 - 09/01 [place] 14.7 /2015 [place] HEMATOLOGY Hypochrom 1+ None Seen 09/01 [place] (09/01/16 12:42 PM) /2015 [place] HEMATOLOGY Tot Cell Ct 100 09/01 [place] /2015 [place] HEMATOLOGY Anisocyte 1+ None Seen 09/01 [place] *ABN* /2015 [place] (09/01/16 12:42 PM) HEMATOLOGY RBC Morph Normal 09/01 [place] (09/01/16 12:42 PM) [place] HEMATOLOGY Bands 6.0 0.0 - 11.0 09/01 [place] HEMATOLOGY Plt Morph Normal 09/01 [place] (09/01/16 12:42 PM) [place] CHEM PANEL Magnesium 1.7 1.8 - 2.4 10/11 [facility] [place] Lvl [place] CHEM PANEL eGFR 77 10/11 Result MH Comment: The [facility] eGFR is calculated using the CKD-EPI formula. In most young, healthy individuals the eGFR will be >90 mL/min/1.73m2 . The eGFR declines with age. An eGFR of 60-89 may be normal in some populations, particularly the elderly, for whom the CKD-EPI formula has not been extensively validated. Use of the eGFR is not recommended in the following populations:< br/>
Rissa viduals with unstable creatinine concentration s, including patients and those with serious co-morbid conditions.<b r/>
Patie nts with extremes in muscle mass or diet.

The data above are obtained from the National Kidney Disease Education Program (NKDEP) which additionally recommends that when the eGFR is used in patients with extremes of body mass index for purposes of drug dosing, the eGFR should be multiplied by the estimated BMI. CHEM PANEL AGAP 11.2 10.0 - 10/11 [facility] [place] 20.0 [place] CHEM PANEL Sodium Lvl 136 135 - 145 10/11 [facility] [place] CHEM PANEL Potassium 4.2 3.5 - 5.1 10/11 [facility] [place] Lvl [place] CHEM PANEL Calcium Lvl 8.3 8.5 - 10.5 10/11 [facility] [place] CHEM PANEL CO2 25 24 - 32 10/11 [facility] [place] CHEM PANEL Glucose Lvl 102 70 - 99 10/11 [facility] [place] CHEM PANEL Chloride Lvl 104 95 - 109 10/11 [facility] [place] CHEM PANEL Creatinine 0.96 0.50 - 10/11 [facility] [place] Lvl 1.40 /2014 [place] CHEM PANEL BUN 41 7 - 22 10/11 [facility] [place] ELECTROLYT AGAP 11.8 10.0 - 10/10 [facility] [place] 20.0 2015 [place] ELECTROLYT eGFR 79 10/10 Result [facility] Comment: The [facility] eGFR is calculated using the CKD-EPI formula. In most young, healthy individuals the eGFR will be >90 mL/min/1.73m2 . The eGFR declines with age. An eGFR of 60-89 may be normal in some populations, particularly the elderly, for whom the CKD-EPI formula has not been extensively validated. Use of the eGFR is not recommended in the following populations:< br/>
Rissa viduals with unstable creatinine concentration s, including patients and those with serious co-morbid conditions.<b r/>
Patie nts with extremes in muscle mass or diet.

The data above are obtained from the National Kidney Disease Education Program (NKDEP) which additionally recommends that when the eGFR is used in patients with extremes of body mass index for purposes of drug dosing, the eGFR should be multiplied by the estimated BMI. ELECTROLYT CO2 25 24 - 32 10/10 [place] ELECTROLYT Calcium Lvl 8.5 8.5 - 10.5 10/10 [place] ELECTROLYT Glucose Lvl 103 70 - 99 10/10 [place] ELECTROLYT BUN 44 7 - 22 10/10 [place] ELECTROLYT Sodium Lvl 139 135 - 145 10/10 [place] ELECTROLYT Creatinine 0.94 0.50 - 10/10 [place] Lvl 1.40 [place] ELECTROLYT Potassium 3.8 3.5 - 5.1 10/10 [facility] Lvl [place] ELECTROLYT Chloride Lvl 106 95 - 109 10/10 [place] CHEM PANEL Magnesium 1.5 1.8 - 2.4 10/08 [place] CHEM PANEL eGFR 75 10/[address] [facility] Comment: [place] eGFR is calculated using the CKD-EPI formula. In most young, healthy individuals the eGFR will be >90 mL/min/1.73m2 . The eGFR declines with age. An eGFR of 60-89 may be normal in some populations, particularly the elderly, for whom the CKD-EPI formula has not been extensively validated. Use of the eGFR is not recommended in the following populations:< br/>
Rissa viduals with unstable creatinine concentration s, including patients and those with serious co-morbid conditions.<b r/>
Patie nts with extremes in muscle mass or diet.

The data above are obtained from the National Kidney Disease Education Program (NKDEP) which additionally recommends that when the eGFR is used in patients with extremes of body mass index for purposes of drug dosing, the eGFR should be multiplied by the estimated BMI. CHEM PANEL BUN 35 7 - 22 10/08 [place] /2014 [facility] CHEM PANEL Creatinine 0.98 0.50 - 10/08 [place] Lvl 1.40 /2014 [place] HEMATOLOGY Lymphocytes 27.6 20.0 - 10/08 [place] 40.0 [place] HEMATOLOGY Monocytes 8.4 2.0 - 12.0 10/08 [place] /2014 [place] HEMATOLOGY Basophils 0.2 0.0 - 1.0 10/08 [place] HEMATOLOGY Eosinophils 1.4 0.0 - 4.0 10/08 [place] /2014 [place] HEMATOLOGY Lymphocytes 2.2 1.0 - 5.5 10/08 [place] # /2014 [place] HEMATOLOGY Eosinophils 0.1 0.0 - 0.5 10/08 [place] # /2014 [facility] HEMATOLOGY Segs-Bands # 5.1 1.5 - 8.1 10/08 [place] /2014 [facility] HEMATOLOGY Monocytes # 0.7 0.0 - 0.8 10/08 [place] /2014 [facility] HEMATOLOGY Basophils # 0.0 0.0 - 0.2 10/08 [place] /2014 [facility] HEMATOLOGY Segs 62.4 45.0 - 10/08 [place] 75.0 [facility] HEMATOLOGY Plt Morph Normal 10/08 [place] (10/08/15 5:43 AM) [facility] HEMATOLOGY MPV 7.6 7.4 - 10.4 10/08 [place] HEMATOLOGY Platelet 233 133 - 450 10/08 [facility] HEMATOLOGY Hgb 9.2 14.0 - 10/08 [place] 18.0 [facility] HEMATOLOGY RBC 2.98 4.70 - 10/08 [place] 6.10 [place] HEMATOLOGY WBC 8.1 3.7 - 10.4 10/08 [facility] HEMATOLOGY RDW 14.5 11.5 - 10/08 [place] 14.5 [facility] HEMATOLOGY MCHC 32.7 32.0 - 10/08 [place] 36.0 [facility] HEMATOLOGY MCH 31.0 27.0 - 10/08 [place] 31.0 [place] HEMATOLOGY MCV 94.6 80.0 - 10/08 [facility] [place] 94.0 /2015 [place] HEMATOLOGY Hct 28.2 42.0 - 10/08 [facility] [place] 54.0 /2015 [place] CHEM PANEL Phosphorus 3.5 2.5 - 4.5 10/07 [facility] [place] /2014 [place] CHEM PANEL Magnesium 1.3 1.8 - 2.4 10/07 [facility] [place] Lvl /2014 [place] ELECTROLYT AGAP 11.8 10.0 - 10/07 [facility] [place] ES 20.0 /2014 [place] ELECTROLYT Chloride Lvl 107 95 - 109 11 [facility] [place] /2014 [place] ELECTROLYT Calcium Lvl 8.2 8.5 - 10.5 10/07 [facility] [place] [facility] ES /2014 [place] ELECTROLYT CO2 29 24 - 32 10/07 [facility] [place] ELECTROLYT B/C Ratio 23 6 - 25 10/07 [facility] [place] ELECTROLYT Sodium Lvl 144 135 - 145 10/07 [facility] [place] ELECTROLYT Glucose Lvl 120 70 - 99 10/07 [facility] [place] ELECTROLYT Potassium 3.8 3.5 - 5.1 10/07 [facility] [place] Lvl [place] ELECTROLYT AST 15 0 - 37 10/07 [facility] [place] ELECTROLYT Alk Phos 80 39 - 136 10/07 [facility] [place] ES 2015 [place] ELECTROLYT Bili Total 0.8 0.2 - 1.3 10/07 [facility] [place] [facility] /2014 [place] ELECTROLYT Total 6.2 6.4 - 8.4 10/07 [facility] [place] ELECTROLYT A/G Ratio 0.8 0.7 - 1.6 10/07 [facility] [place] ELECTROLYT ALT 13 0 - 65 10/07 [facility] [place] ELECTROLYT Globulin 3.4 2.0 - 4.0 10/07 [facility] [place] ELECTROLYT Albumin Lvl 2.8 3.5 - 5.0 10/07 [facility] [place] /2014 [place] HEMATOLOGY Lymphocytes 11.7 20.0 - 11 [facility] [place] 40.0 /2015 [place] HEMATOLOGY Monocytes 6.1 2.0 - 12.0 10/07 [facility] [place] /2014 [place] HEMATOLOGY Eosinophils 0.0 0.0 - 4.0 10/07 [facility] [place] /2015 [place] HEMATOLOGY Basophils 0.3 0.0 - 1.0 10/07 [facility] [place] /2014 [place] HEMATOLOGY Segs-Bands # 9.2 1.5 - 8.1 1120 [facility] [place] /2014 [place] HEMATOLOGY Lymphocytes 1.3 1.0 - 5.5 10/07 [facility] [place] # /2014 [place] HEMATOLOGY Monocytes # 0.7 0.0 - 0.8 10/07 [facility] [place] /2014 [place] HEMATOLOGY Basophils # 0.0 0.0 - 0.2 10/07 [facility] [place] /2014 [place] HEMATOLOGY Eosinophils 0.0 0.0 - 0.5 10/07 [facility] [place] # /2014 [place] HEMATOLOGY Segs 81.9 45.0 - 10/07 [facility] [place] 75.0 /2014 [place] HEMATOLOGY RDW 14.0 11.5 - 10/07 [facility] [place] 14.5 /2014 [place] HEMATOLOGY Platelet 288 133 - 450 10/07 [facility] [place] /2014 [place] HEMATOLOGY MPV 7.8 7.4 - 10.4 10/07 [facility] [place] /2014 [place] HEMATOLOGY MCH 30.9 27.0 - 10/07 [facility] [place] 31.0 /2014 [place] HEMATOLOGY MCHC 32.2 32.0 - 10/07 [facility] [place] 36.0 /2014 [place] HEMATOLOGY WBC 11.2 3.7 - 10.4 10/07 [facility] [place] /2014 [place] HEMATOLOGY Hgb 11.2 14.0 - 10/07 [facility] [place] 18.0 /2014 [place] HEMATOLOGY RBC 3.62 4.70 - 10/07 [facility] [place] 6.10 [place] HEMATOLOGY MCV 96.0 80.0 - 10/07 [facility] [place] 94.0 /2014 [place] HEMATOLOGY Hct 34.8 42.0 - 10/07 [facility] [place] 54.0 /2014 [place] HEMATOLOGY MCHC 32.1 32.0 - 10/06 [facility] [place] 36.0 /2014 [place] HEMATOLOGY RDW 14.4 11.5 - 10/06 [facility] [place] 14.5 /2014 [place] HEMATOLOGY Platelet 284 133 - 450 10/06 [facility] [place] /2014 [place] HEMATOLOGY MPV 7.7 7.4 - 10.4 10/06 [facility] [place] /2014 [place] HEMATOLOGY Hgb 10.2 14.0 - 10/06 [facility] [place] 18.0 /2014 [place] HEMATOLOGY MCV 95.5 80.0 - 10/06 [facility] [place] 94.0 /2014 [place] HEMATOLOGY RBC 3.33 4.70 - 10/06 [facility] [place] 6.10 [place] HEMATOLOGY Hct 31.8 42.0 - 10/06 [facility] [place] 54.0 /2014 [place] HEMATOLOGY MCH 30.7 27.0 - 10/06 [facility] 31.0 /2014 [place] HEMATOLOGY WBC 8.1 3.7 - 10.4 10/06 [facility] /[facility] [place] HEMATOLOGY Lymphocytes 1.9 1.0 - 5.5 10/06 [facility] # /2014 [place] HEMATOLOGY Monocytes # 0.6 0.0 - 0.8 10/06 [facility] [facility] /[place] HEMATOLOGY Eosinophils 0.1 0.0 - 0.5 10/06 [facility] [facility] # /2014 [place] HEMATOLOGY Basophils # 0.0 0.0 - 0.2 10/06 [place] [facility] /[place] HEMATOLOGY Basophils 0.3 0.0 - 1.0 10/06 [facility] /[facility] [place] HEMATOLOGY Segs-Bands # 5.6 1.5 - 8.1 10/06 [facility] /[facility] [place] HEMATOLOGY Lymphocytes 23.1 20.0 - 10/06 [facility] 40.0 /2014 [place] HEMATOLOGY Segs 69.0 45.0 - 10/06 [facility] 75.0 /2014 [place] HEMATOLOGY Monocytes 6.9 2.0 - 12.0 10/06 [facility] /[facility] [place] HEMATOLOGY Eosinophils 0.7 0.0 - 4.0 10/06 [place] [facility] [place] URINE AND UA WBC 0-2 /HPF None Seen 10/06 [facility] STOOL /HPF /2014 [place] URINE AND UA Sq Epi Rare /LPF Few /LPF 10/06 [facility] STOOL /2014 [place] URINE AND UA Bacteria Occasional None Seen 10/06 [facility] STOOL /HPF /HPF /2014 [place] URINE AND UA RBC 0-2 /HPF 0 - 2 10/06 [facility] /2014 [facility] URINE AND UA Leuk Est Negative Negative 10/06 [facility] ST[facility] (10/05/15 9:01 PM) /2014 [place] URINE AND UA 0.2 0.1 - 1.0 10/06 [facility] Urobilinogen /2014 [place] URINE AND UA Blood Negative Negative 10/06 [facility] (10/05/15 9:01 PM) /2014 [place] URINE AND UA Nitrite Negative Negative 10/06 [facility] (10/05/15 9:01 PM) /2014 [place] URINE AND UA Protein Negative Negative 10/06 [facility] mg/dL mg/dL /2014 [place] URINE AND UA Ketones Trace Negative 10/06 [facility] mg/dL mg/dL /2014 [place] URINE AND UA Glucose Negative Negative 10/06 [facility] mg/dL mg/dL /2014 [place] URINE AND UA Bili Negative Negative 10/06 [facility] *NA* /2014 [facility] (10/05/15 9:01 PM) URINE AND UA Spec Grav 1.010 <=1.030 10/06 [facility] URINE [facility] UA pH 7.5 5.0 - 8.0 10/06 [facility] URINE AND UA Turbidity Clear Clear 10/06 [place] STOOL (10/05/15 9:01 PM) /2014 [place] URINE AND UA Color Yellow Yellow 10/06 [place] STOOL *NA* /2014 [place] (10/05/15 9:01 PM) CARDIAC CK MB Index 1.4 0.0 - 2.5 10/06 [place] ENZYMES [place] CARDIAC CK MB 0.6 0.5 - 3.6 10/06 [place] CARDIAC Troponin-I <0.02 0.00 - 10/06 [place] ENZYMES 0.40 [facility] CARDIAC Total CK 43 12 - 191 10/06 [place] CHEM PANEL Lipase Lvl 68 73 - 393 10/06 [place] CHEM PANEL B/C Ratio 18 6 - 25 10/06 [place] CHEM PANEL A/G Ratio 0.9 0.7 - 1.6 10/06 [place] CHEM PANEL Globulin 3.6 2.0 - 4.0 10/06 [place] CHEM PANEL Total 7.0 6.4 - 8.4 10/06 [place] CHEM PANEL Albumin Lvl 3.4 3.5 - 5.0 10/06 [place] CHEM PANEL ALT 14 0 - 65 10/06 [place] CHEM PANEL Bili Total 0.5 0.2 - 1.3 10/06 [place] CHEM PANEL AST 20 0 - 37 10/06 [place] CHEM PANEL Alk Phos 99 39 - 136 10/06 [place] HEMATOLOGY INR 1.06 0.85 - 10/06 [place] 1.17 /2014 [place] HEMATOLOGY PT 14.1 12.0 - 10/06 [place] 14.7 /2014 [place] HEMATOLOGY PTT 27.8 22.9 - 10/06 [place] 35.8 /2014 [place] CHEM PANEL eGFR 65 06/17 Comment: The [place] eGFR is calculated using the CKD-EPI formula. In most young, healthy individuals the eGFR will be >90 mL/min/1.73m2 . The eGFR declines with age. An eGFR of 60-89 may be normal in some populations, particularly the elderly, for whom the CKD-EPI formula has not been extensively validated. Use of the eGFR is not recommended in the following populations:< br/>
Rissa viduals with unstable creatinine concentration s, including patients and those with serious co-morbid conditions.<b r/>
Patie nts with extremes in muscle mass or diet.

The data above are obtained from the National Kidney Disease Education Program (NKDEP) which additionally recommends that when the eGFR is used in patients with extremes of body mass index for purposes of drug dosing, the eGFR should be multiplied by the estimated BMI. CHEM PANEL Sodium Lvl 140 135 - 145 06/17 [place] CHEM PANEL Creatinine 1.1 0.5 - 1.4 06/17 [place] CHEM PANEL Chloride Lvl 108 95 - 109 06/17 [place] CHEM PANEL Potassium 3.6 3.5 - 5.1 06/17 [place] CHEM PANEL CO2 23 24 - 32 06/17 [place] CHEM PANEL BUN 12 7 - 22 06/17 [place] CHEM PANEL Glucose Lvl 111 70 - 99 06/17 [place] CHEM PANEL Calcium Lvl 8.0 8.5 - 10.5 06/17 [place] CHEM PANEL AGAP 12.6 10.0 - 06/17 [place] 20.0 [place] HEMATOLOGY Segs-Bands # 6.2 1.5 - 8.1 06/17 [place] HEMATOLOGY Eosinophils 4.8 0.0 - 4.0 06/17 [place] HEMATOLOGY Basophils 0.3 0.0 - 1.0 06/17 [place] HEMATOLOGY Lymphocytes 2.0 1.0 - 5.5 06/17 [place] # [place] HEMATOLOGY Eosinophils 0.4 0.0 - 0.5 06/17 [place] # [place] HEMATOLOGY Monocytes # 0.6 0.0 - 0.8 06/17 [place] HEMATOLOGY Basophils # 0.0 0.0 - 0.2 06/17 [facility] [place] /2014 [place] HEMATOLOGY Lymphocytes 21.3 20.0 - 06/17 [place] 40.0 /2014 [place] HEMATOLOGY Monocytes 6.7 2.0 - 12.0 06/17 [facility] [place] /2014 [place] HEMATOLOGY Segs 66.9 45.0 - 06/17 [place] 75.0 /2014 [place] HEMATOLOGY MPV 8.0 7.4 - 10.4 06/17 [place] HEMATOLOGY RDW 18.3 11.5 - 06/17 [place] 14.5 /2014 [place] HEMATOLOGY Platelet 259 133 - 450 06/17 [place] HEMATOLOGY MCHC 34.0 32.0 - 06/17 [place] 36.0 /2014 [place] HEMATOLOGY RBC 3.18 4.70 - 06/17 [place] 6.10 [place] HEMATOLOGY WBC 9.3 3.7 - 10.4 06/17 [facility] [place] HEMATOLOGY MCH 30.6 27.0 - 06/17 [place] 31.0 /2014 [place] HEMATOLOGY Hct 28.6 42.0 - 06/17 [place] 54.0 /2014 [place] HEMATOLOGY Hgb 9.7 14.0 - 06/17 [place] 18.0 [place] HEMATOLOGY MCV 90.0 80.0 - 06/17 [place] 94.0 /2014 [place] CHEM PANEL BUN 10 7 - 22 06/16 [place] CHEM PANEL Potassium 3.1 3.5 - 5.1 06/16 [place] Lvl [place] CHEM PANEL Chloride Lvl 106 95 - 109 06/16 [facility] [place] CHEM PANEL Creatinine 1.2 0.5 - 1.4 06/16 [place] Lvl [place] CHEM PANEL Sodium Lvl 140 135 - 145 06/16 [facility] [place] CHEM PANEL Calcium Lvl 7.9 8.5 - 10.5 06/16 [facility] [place] CHEM PANEL CO2 25 24 - 32 06/16 [facility] [place] CHEM PANEL Glucose Lvl 109 70 - 99 06/16 [facility] [place] CHEM PANEL eGFR 59 06/16 Result MH Comment: The [place] eGFR is calculated using the CKD-EPI formula. In most young, healthy individuals the eGFR will be >90 mL/min/1.73m2 . The eGFR declines with age. An eGFR of 60-89 may be normal in some populations, particularly the elderly, for whom the CKD-EPI formula has not been extensively validated. Use of the eGFR is not recommended in the following populations:< br/>
Rissa viduals with unstable creatinine concentration s, including patients and those with serious co-morbid conditions.<b r/>
Patie nts with extremes in muscle mass or diet.

The data above are obtained from the National Kidney Disease Education Program (NKDEP) which additionally recommends that when the eGFR is used in patients with extremes of body mass index for purposes of drug dosing, the eGFR should be multiplied by the estimated BMI. CHEM PANEL AGAP 12.1 10.0 - 06/16 MH [place] 20.0 /2014 [place] HEMATOLOGY Basophils # 0.0 0.0 - 0.2 07/30 [facility] [place] /2014 [place] HEMATOLOGY Monocytes # 0.7 0.0 - 0.8 07/30 [facility] [place] /2014 [place] HEMATOLOGY Eosinophils 0.8 0.0 - 0.5 /30 [facility] [place] # /2014 [place] HEMATOLOGY Basophils 0.3 0.0 - 1.0 06/16 [facility] [place] HEMATOLOGY Segs-Bands # 9.1 1.5 - 8.1 /30 MH [place] /2014 [place] HEMATOLOGY Lymphocytes 2.0 1.0 - 5.5 /30 [facility] [place] # /2014 [place] HEMATOLOGY Eosinophils 6.4 0.0 - 4.0 30 [facility] [place] /2015 [place] HEMATOLOGY Monocytes 5.2 2.0 - 12.0 06/16 [facility] [place] HEMATOLOGY Segs 72.0 45.0 - 06/16 MH [place] 75.0 /2014 [place] HEMATOLOGY Lymphocytes 16.1 20.0 - 06/16 MH [place] 40.0 /2014 [place] HEMATOLOGY Plt Morph Normal 06/16 [facility] [place] (06/16/15 6:29 AM) [place] HEMATOLOGY MPV 7.9 7.4 - 10.4 30 MH [place] /2014 [place] HEMATOLOGY Platelet 122 133 - 450 06/16 [facility] [place] /2014 [place] HEMATOLOGY RBC 3.25 4.70 - 06/16 [facility] [place] 6.10 [place] HEMATOLOGY WBC 12.6 3.7 - 10.4 30 MH [place] /2014 [place] HEMATOLOGY RDW 18.0 11.5 - 06/16 MH [place] 14.5 [place] HEMATOLOGY Hgb 9.4 14.0 - 07/30 MH [place] 18.0 [place] HEMATOLOGY MCHC 32.2 32.0 - 06/16 MH [place] 36.0 /2014 [facility] HEMATOLOGY MCH 28.9 27.0 - 06/16 MH [place] 31.0 [facility] HEMATOLOGY MCV 89.9 80.0 - 06/16 MH [place] 94.0 [facility] HEMATOLOGY Hct 29.2 42.0 - 06/16 MH [place] 54.0 [place] CHEM PANEL Bili 0.2 0.0 - 1.0 06/14 MH [place] Indirect [place] CHEM PANEL Bili Direct 0.1 0.0 - 0.3 06/14 [place] CHEM PANEL Bili Total 0.3 0.2 - 1.3 06/14 [place] CHEM PANEL Alk Phos 75 39 - 136 06/14 [place] CHEM PANEL AST 24 0 - 37 06/14 [place] CHEM PANEL A/G Ratio 0.6 0.7 - 1.6 06/14 [place] CHEM PANEL Globulin 3.4 2.0 - 4.0 06/14 [place] CHEM PANEL Albumin Lvl 2.1 3.5 - 5.0 06/14 [place] CHEM PANEL ALT 14 0 - 65 06/14 [place] CHEM PANEL Total 5.5 6.4 - 8.4 06/14 [place] Protein [place] CHEM PANEL eGFR 53 06/14 Result Comment: The [facility] eGFR is calculated using the CKD-EPI formula. In most young, healthy individuals the eGFR will be >90 mL/min/1.73m2 . The eGFR declines with age. An eGFR of 60-89 may be normal in some populations, particularly the elderly, for whom the CKD-EPI formula has not been extensively validated. Use of the eGFR is not recommended in the following populations:< br/>
Rissa viduals with unstable creatinine concentration s, including patients and those with serious co-morbid conditions.<b r/>
Patie nts with extremes in muscle mass or diet.

The data above are obtained from the National Kidney Disease Education Program (NKDEP) which additionally recommends that when the eGFR is used in patients with extremes of body mass index for purposes of drug dosing, the eGFR should be multiplied by the estimated BMI. CHEM PANEL CO2 26 24 - 32 06/14 [place] CHEM PANEL Chloride Lvl 103 95 - 109 06/14 [place] /2014 [place] CHEM PANEL Calcium Lvl 8.2 8.5 - 10.5 06/14 [place] /2014 [place] CHEM PANEL AGAP 12.7 10.0 - 06/14 [place] 20.0 /2014 [place] CHEM PANEL Creatinine 1.3 0.5 - 1.4 06/14 [place] CHEM PANEL Potassium 3.7 3.5 - 5.1 06/14 [place] Lvl /2014 [place] CHEM PANEL Sodium Lvl 138 135 - 145 06/14 [place] CHEM PANEL BUN 14 7 - 22 06/14 [place] CHEM PANEL Glucose Lvl 94 70 - 99 06/14 [place] HEMATOLOGY MCHC 33.0 32.0 - 06/14 [place] 36.0 /2014 [place] HEMATOLOGY Platelet 287 133 - 450 06/14 [place] HEMATOLOGY MPV 7.1 7.4 - 10.4 06/14 [place] HEMATOLOGY RDW 18.4 11.5 - 06/14 [place] 14.5 /2014 [place] HEMATOLOGY MCH 30.2 27.0 - 06/14 [place] 31.0 [place] HEMATOLOGY Hct 28.3 42.0 - 06/14 [place] 54.0 [place] HEMATOLOGY MCV 91.3 80.0 - 06/14 [place] 94.0 /2014 [place] HEMATOLOGY WBC 7.4 3.7 - 10.4 06/14 [place] HEMATOLOGY RBC 3.09 4.70 - 06/14 [place] 6.10 [place] HEMATOLOGY Hgb 9.3 14.0 - 06/14 [place] 18.0 [place] HEMATOLOGY Monocytes # 0.6 0.0 - 0.8 06/14 [place] /2014 [place] HEMATOLOGY Eosinophils 1.0 0.0 - 0.5 06/14 [place] # /2014 [place] HEMATOLOGY Segs-Bands # 3.9 1.5 - 8.1 06/14 [place] /2014 [place] HEMATOLOGY Lymphocytes 1.8 1.0 - 5.5 06/14 [place] # /2014 [place] HEMATOLOGY Basophils # 0.0 0.0 - 0.2 06/14 [place] /2014 [place] HEMATOLOGY Monocytes 8.4 2.0 - 12.0 06/14 [place] /2014 [place] HEMATOLOGY Eosinophils 13.7 0.0 - 4.0 06/14 [place] /2014 [facility] HEMATOLOGY Segs 53.2 45.0 - 06/14 [place] 75.0 /2014 [facility] HEMATOLOGY Lymphocytes 24.5 20.0 - 06/14 [place] 40.0 /2014 [place] HEMATOLOGY Basophils 0.2 0.0 - 1.0 06/14 [place] /2014 [facility] IMMUNOLOGY Prealbumin 10.3 18.0 - 06/14 [place] 45.0 /2014 [facility] IMMUNOLOGY C-REACTIVE 35.6 <=2.9 mg/L 06/14 [place] PROTEIN /2014 [facility] MOLECULAR C difficile Negative Negative 06/12 [place] DIAGNOSTIC DNA (06/12/15 2:09 PM) /2014 [place] CARDIAC Troponin-I <0.02 0.00 - 06/12 [place] ENZYMES 0.40 [facility] ENDOCRINOL Cortisol 12.4 06/12 [place] OGY [facility] CHEM PANEL Lactic Acid 0.7 0.5 - 2.2 06/12 [place] Lvl /2014 [place] ELECTROLYT AGAP 9.3 10.0 - 05/31 [place] ES 20.0 [place] ELECTROLYT eGFR 83 05/31 Result [place] Comment: The [facility] eGFR is calculated using the CKD-EPI formula. In most young, healthy individuals the eGFR will be >90 mL/min/1.73m2 . The eGFR declines with age. An eGFR of 60-89 may be normal in some populations, particularly the elderly, for whom the CKD-EPI formula has not been extensively validated. Use of the eGFR is not recommended in the following populations:< br/>
Rissa viduals with unstable creatinine concentration s, including patients and those with serious co-morbid conditions.<b r/>
Patie nts with extremes in muscle mass or diet.

The data above are obtained from the National Kidney Disease Education Program (NKDEP) which additionally recommends that when the eGFR is used in patients with extremes of body mass index for purposes of drug dosing, the eGFR should be multiplied by the estimated BMI. ELECTROLYT Glucose Lvl 93 70 - 99 05/31 [place] ELECTROLYT Chloride Lvl 106 95 - 109 05/31 [place] ELECTROLYT Creatinine 0.9 0.5 - 1.4 07 [place] Lvl /2014 [place] ELECTROLYT BUN 8 7 - 22 07/ [place] ELECTROLYT Potassium 3.3 3.5 - 5.1 05/31 [place] Lvl /2014 [place] ELECTROLYT Sodium Lvl 139 135 - 145 05/31 [place] ELECTROLYT CO2 27 24 - 32 05/31 [place] ELECTROLYT Calcium Lvl 8.7 8.5 - 10.5 07 [place] ES /2014 [place] HEMATOLOGY Monocytes 9.2 2.0 - 12.0 07/ [place] /2014 [place] HEMATOLOGY Eosinophils 7.4 0.0 - 4.0 07 [place] /2014 [place] HEMATOLOGY Basophils # 0.1 0.0 - 0.2 05/31 [place] /2014 [place] HEMATOLOGY Eosinophils 0.7 0.0 - 0.5 05/31 [place] # /2014 [place] HEMATOLOGY Basophils 0.8 0.0 - 1.0 05/31 [place] HEMATOLOGY Segs-Bands # 5.9 1.5 - 8.1 05/31 [place] /2014 [place] HEMATOLOGY Monocytes # 0.9 0.0 - 0.8 05/31 [place] /2014 [place] HEMATOLOGY Lymphocytes 2.3 1.0 - 5.5 05/31 [place] # /2014 [place] HEMATOLOGY Lymphocytes 23.3 20.0 - 05/31 [place] 40.0 /2014 [place] HEMATOLOGY Segs 59.3 45.0 - 05/31 [place] 75.0 /2014 [place] HEMATOLOGY MCHC 33.4 32.0 - 05/31 [place] 36.0 /2014 [place] HEMATOLOGY MCH 29.9 27.0 - 07 [place] 31.0 /2014 [place] HEMATOLOGY MCV 89.7 80.0 - 05/31 [place] 94.0 /2015 [place] HEMATOLOGY MPV 7.9 7.4 - 10.4 05/31 [place] /2014 [place] HEMATOLOGY Platelet 342 133 - 450 05/31 [place] /2014 [place] HEMATOLOGY RDW 17.2 11.5 - 05/31 [place] 14.5 [place] HEMATOLOGY WBC 10.0 3.7 - 10.4 05/31 [place] HEMATOLOGY RBC 3.45 4.70 - 05/31 [place] 6.10 /2014 [place] HEMATOLOGY Hct 30.9 42.0 - 05/31 MH [place] 54.0 /2014 [place] HEMATOLOGY Hgb 10.3 14.0 - 05/31 MH [place] 18.0 /2014 [place] CHEM PANEL Magnesium 0.9 1.8 - 2.4 05/30 Result MH [place] L[place] Comment: [place] Critical Result(s) called to JOLLY HOPKINS RN at 05/30/2015 07:03_ by_TLN. Read back OK. ELECTROLYT AGAP 12.7 10.0 - 05/30 MH [place] ES 20.0 /2014 [place] ELECTROLYT eGFR 73 05/30 Result MH [place] Comment: [place] eGFR is calculated using the CKD-EPI formula. In most young, healthy individuals the eGFR will be >90 mL/min/1.73m2 . The eGFR declines with age. An eGFR of 60-89 may be normal in some populations, particularly the elderly, for whom the CKD-EPI formula has not been extensively validated. Use of the eGFR is not recommended in the following populations:< br/>
Rissa viduals with unstable creatinine concentration s, including patients and those with serious co-morbid conditions.<b r/>
Patie nts with extremes in muscle mass or diet.

The data above are obtained from the National Kidney Disease Education Program (NKDEP) which additionally recommends that when the eGFR is used in patients with extremes of body mass index for purposes of drug dosing, the eGFR should be multiplied by the estimated BMI. ELECTROLYT CO2 25 24 - 32 05/30 MH [place] ELECTROLYT Calcium Lvl 8.8 8.5 - 10.5 05/30 MH [place] ELECTROLYT Chloride Lvl 107 95 - 109 05/30 MH [place] /2014 [place] ELECTROLYT Glucose Lvl 103 70 - 99 05/30 MH [place] ELECTROLYT BUN 9 7 - 22 05/30 MH [place] ELECTROLYT Creatinine 1.0 0.5 - 1.4 05/30 MH [place] Lvl /2014 [place] ELECTROLYT Potassium 3.7 3.5 - 5.1 05/30 MH [place] Lvl /2014 [place] ELECTROLYT Sodium Lvl 141 135 - 145 05/30 MH [place] HEMATOLOGY RDW 17.2 11.5 - 07 MH [place] 14.5 /2014 [place] HEMATOLOGY Platelet 348 133 - 450 07/ MH [place] /2014 [place] HEMATOLOGY MPV 8.0 7.4 - 10.4 07/ [place] /2014 [place] HEMATOLOGY Hct 30.2 42.0 - 05/30 [place] 54.0 /2014 [place] HEMATOLOGY MCV 89.6 80.0 - 05/30 [place] 94.0 /2014 [place] HEMATOLOGY MCH 29.4 27.0 - 05/30 [place] 31.0 /2014 [place] HEMATOLOGY MCHC 32.8 32.0 - 05/30 [place] 36.0 /2014 [place] HEMATOLOGY WBC 10.0 3.7 - 10.4 07/ [place] /2014 [place] HEMATOLOGY RBC 3.37 4.70 - 05/30 [place] 6.10 /2014 [place] HEMATOLOGY Hgb 9.9 14.0 - 05/30 [place] 18.0 /2014 [place] HEMATOLOGY INR 1.06 0.85 - 05/30 [place] 1.17 /2014 [place] HEMATOLOGY PTT 35.7 22.9 - 05/30 [place] 35.8 /2014 [place] HEMATOLOGY PT 13.8 12.0 - 05/30 [place] 14.7 /2014 [place] HEMATOLOGY Eosinophils 0.6 0.0 - 0.5 05/30 [place] # /2014 [place] HEMATOLOGY Basophils # 0.1 0.0 - 0.2 05/30 [place] /2014 [place] HEMATOLOGY Monocytes # 0.9 0.0 - 0.8 05/30 [place] /2014 [place] HEMATOLOGY Basophils 0.8 0.0 - 1.0 / [place] /2014 [place] HEMATOLOGY Segs-Bands # 6.2 1.5 - 8.1 05/30 [place] /2014 [place] HEMATOLOGY Lymphocytes 2.3 1.0 - 5.5 05/30 [place] # /2014 [place] HEMATOLOGY Segs 61.8 45.0 - 07 [place] 75.0 /2014 [place] HEMATOLOGY Lymphocytes 22.6 20.0 - 05/30 [place] 40.0 /2014 [place] HEMATOLOGY Monocytes 8.6 2.0 - 12.0 / MH [place] /2014 [place] HEMATOLOGY Eosinophils 6.2 0.0 - 4.0 / [place] /2014 [place] CHEM PANEL eGFR 83 07/ [facility] [place] /2014 Comment: The [place] eGFR is calculated using the CKD-EPI formula. In most young, healthy individuals the eGFR will be >90 mL/min/1.73m2 . The eGFR declines with age. An eGFR of 60-89 may be normal in some populations, particularly the elderly, for whom the CKD-EPI formula has not been extensively validated. Use of the eGFR is not recommended in the following populations:< br/>
Rissa viduals with unstable creatinine concentration s, including patients and those with serious co-morbid conditions.<b r/>
Patie nts with extremes in muscle mass or diet.

The data above are obtained from the National Kidney Disease Education Program (NKDEP) which additionally recommends that when the eGFR is used in patients with extremes of body mass index for purposes of drug dosing, the eGFR should be multiplied by the estimated BMI. CHEM PANEL Calcium Lvl 8.6 8.5 - 10.5 07/12 MH [place] /2014 [place] CHEM PANEL Chloride Lvl 107 95 - 109 07/ MH [place] CHEM PANEL CO2 24 24 - 32 07/ MH [place] CHEM PANEL Glucose Lvl 102 70 - 99 07/ MH [place] CHEM PANEL Creatinine 0.9 0.5 - 1.4 07/ MH [place] Lvl [place] CHEM PANEL Sodium Lvl 140 135 - 145 / MH [place] CHEM PANEL BUN 10 7 - 22 / MH [place] /2014 [place] CHEM PANEL Potassium 3.3 3.5 - 5.1 07/ MH [place] Lvl /2014 [place] CHEM PANEL AGAP 12.3 10.0 - 07/ MH [place] 20.0 /2015 [place] HEMATOLOGY RDW 17.2 11.5 - 07/ MH [place] 14.5 /2014 [place] HEMATOLOGY MCHC 32.9 32.0 - 07/12 MH [place] 36.0 /2015 [place] HEMATOLOGY MPV 7.7 7.4 - 10.4 07/ MH [place] /2015 [place] HEMATOLOGY Platelet 346 133 - 450 07/ MH [place] /2014 [place] HEMATOLOGY Hct 30.7 42.0 - 07/ MH [place] 54.0 /2015 [place] HEMATOLOGY Hgb 10.1 14.0 - 07/ MH [place] 18.0 /2015 [place] HEMATOLOGY MCV 89.0 80.0 - 07/ MH [place] 94.0 /2014 [place] HEMATOLOGY MCH 29.3 27.0 - 07/ MH [place] 31.0 /2015 [place] HEMATOLOGY RBC 3.45 4.70 - 07/12 MH [place] 6.10 /2014 [place] HEMATOLOGY WBC 9.5 3.7 - 10.4 07/12 MH [place] /2014 [place] HEMATOLOGY INR 1.03 0.85 - 07/ MH [place] 1.17 /2014 [place] HEMATOLOGY PTT 36.4 22.9 - 07 MH [place] 35.8 /2014 [place] HEMATOLOGY PT 13.5 12.0 - 07/ MH [place] 14.7 /2014 [place] HEMATOLOGY Segs-Bands # 5.9 1.5 - 8.1 07/ MH [place] /2014 [place] HEMATOLOGY Eosinophils 5.0 0.0 - 4.0 07/12 MH [place] /2014 [place] HEMATOLOGY Lymphocytes 2.2 1.0 - 5.5 07/ MH [place] # /2014 [place] HEMATOLOGY Basophils 0.4 0.0 - 1.0 07/ MH [place] /2014 [place] HEMATOLOGY Eosinophils 0.5 0.0 - 0.5 07/ MH [place] # /2014 [place] HEMATOLOGY Monocytes # 0.8 0.0 - 0.8 07/ MH [place] /2014 [place] HEMATOLOGY Basophils # 0.0 0.0 - 0.2 07/ MH [place] /2015 [place] HEMATOLOGY Lymphocytes 23.6 20.0 - 07/ MH [place] 40.0 /2014 [place] HEMATOLOGY Segs 62.5 45.0 - 07/ MH [place] 75.0 /2014 [place] HEMATOLOGY Monocytes 8.5 2.0 - 12.0 07/ MH [place] /2014 [place] HEMATOLOGY Plt Morph Normal 05/29 [place] (05/29/15 6:13 AM) /2014 [place] HEMATOLOGY INR 1.11 0.85 - 05/28 [place] 1. [place] HEMATOLOGY PTT 41.8 22.9 - 07/11 MH [place] 35.8 /2014 [place] HEMATOLOGY PT 14.4 12.0 - 07 MH [place] 14.7 /2014 [place] TOXICOLOGY Vanco Lvl 23.3 07/09 MH [place] /2014 [place] TOXICOLOGY Vanco Tr TND [id number] / MH [place] /2014 [place] TOXICOLOGY Vanco Tr 34.6 07/08 MH [place] /2014 [place] MOLECULAR C difficile Negative Negative 05/25 [place] DIAGNOSTIC DNA (05/24/15 10:46 PM) /2014 [place] CHEM PANEL A/G Ratio 0.5 0.7 - 1.6 07/07 MH [place] /2015 [place] CHEM PANEL Globulin 4.3 2.0 - 4.0 07/07 MH [place] /2015 [place] CHEM PANEL Bili 0.4 0.0 - 1.0 07/07 MH [place] Indirect /2014 [place] CHEM PANEL ALT 23 0 - 65 07/07 [facility] [place] /2014 [place] CHEM PANEL AST 26 0 - 37 07/07 MH [place] /2014 [place] CHEM PANEL Bili Direct 0.2 0.0 - 0.3 07/07 MH [place] /2014 [place] CHEM PANEL Alk Phos 121 39 - 136 07/07 MH [place] /2014 [place] CHEM PANEL Bili Total 0.6 0.2 - 1.3 07/ MH [place] /2014 [place] CHEM PANEL Total 6.4 6.4 - 8.4 07/07 MH [place] Protein /2014 [place] CHEM PANEL Albumin Lvl 2.1 3.5 - 5.0 07/ MH [place] /2014 [place] IMMUNOLOGY Prealbumin 14.1 18.0 - 07/05 MH [place] 45.0 /2014 [place] TOXICOLOGY Vanc Tr TND [id number] 07/ MH [place] /2014 [place] TOXICOLOGY Vanco Tr 18.2 07/04 MH [place] /2014 [place] URINE AND Occult Bld Positive Negative 05/20 MH [place] STOOL Stl *ABN* /2014 [place] (05/20/15 11:23 AM) CHEM PANEL Albumin Lvl 2.0 3.5 - 5.0 07/ MH [place] /2014 [place] CHEM PANEL Bili Total 0.7 0.2 - 1.3 07/ MH [place] /2014 [place] CHEM PANEL Alk Phos 143 39 - 136 07/ MH [place] /2014 [place] CHEM PANEL AST 31 0 - 37 07/03 MH [place] /2014 [place] CHEM PANEL ALT 25 0 - 65 07/03 MH [place] /2014 [place] CHEM PANEL Total 6.3 6.4 - 8.4 07/03 MH [place] Protein /2015 [place] CHEM PANEL B/C Ratio 28 6 - 25 07/03 MH [place] /2014 [place] CHEM PANEL A/G Ratio 0.5 0.7 - 1.6 07/03 MH [place] /2014 [place] CHEM PANEL Globulin 4.3 2.0 - 4.0 07/03 MH [place] /2014 [place] TOXICOLOGY Vanco Tr TND 1330 07/ MH [place] /2014 [place] TOXICOLOGY Vanco Tr 16.7 07/02 MH [place] /2014 [place] BLOOD BANK Antibody Negative 05/19 MH [place] RESULTS Scrn (7/2/15 6:30 AM) /2014 [facility] BLOOD BANK ABO/Rh A POS 05/19 [place] RESULTS /2014 [facility] BLOOD BANK RBC product Product available 1 05/19 Resul t [place] RESULTS (05/19/15 6:25 AM) /2014 Comment: [facility] 05/19/2015 09:31 [id number]
CALLED TO Carlie JONES 05/19/2015 09:31 M[facility] CHEM PANEL Albumin Lvl 1.8 3.5 - 5.0 / MH [place] CHEM PANEL ALT 24 0 - 65 / [facility] [place] CHEM PANEL Globulin 3.8 2.0 - 4.0 / MH [place] /2014 [place] CHEM PANEL A/G Ratio 0.5 0.7 - 1.6 05/19 [facility] [place] CHEM PANEL AST 28 0 - 37 / [facility] [place] CHEM PANEL Alk Phos 127 39 - 136 05/19 [facility] [place] CHEM PANEL Bili Total 0.5 0.2 - 1.3 / MH [place] /2014 [place] CHEM PANEL Total 5.6 6.4 - 8.4 / MH [place] Protein [place] CHEM PANEL B/C Ratio 27 6 - 25 07/ MH [place] /2014 [place] CHEM PANEL Bili Direct 0.2 0.0 - 0.3 / [facility] [place] CHEM PANEL B/C Ratio 26 6 - 25 / MH [place] CHEM PANEL Phosphorus 4.4 2.5 - 4.5 05/18 [facility] [place] CHEM PANEL Magnesium 1.5 1.8 - 2.4 / MH [place] Lvl /2014 [place] TOXICOLOGY Digoxin Lvl 0.6 0.8 - 2.0 / [facility] [place] CHEM PANEL Lactic Acid 2.2 0.5 - 2.2 05/17 MH [place] Lvl [facility] URINE AND UA Glucose Negative Negative 05/16 [place] STOOL mg/dL mg/dL /2014 [facility] URINE AND UA Bili Negative Negative 05/16 MH [place] STOOL *NA* /2014 [facility] (05/16/15 6:27 PM) URINE AND UA Ketones Negative Negative 05/16 [place] STOOL mg/dL mg/dL [facility] URINE AND UA Spec Grav 1.010 <=1.030 05/16 MH [place] STOOL /2014 [place] URINE AND UA Turbidity Clear Clear 05/16 [place] STOOL (05/16/15 6:27 PM) /2014 [place] URINE AND UA Protein Negative Negative 05/16 [place] STOOL mg/dL mg/dL /2014 [place] URINE AND UA pH 5.5 5.0 - 8.0 05/16 [place] STOOL /2014 [place] URINE AND UA Color Yellow Yellow 05/16 [place] STOOL *NA* /2014 [place] (05/16/15 6:27 PM) URINE AND UA Blood Negative Negative 05/16 [place] STOOL (05/16/15 6:27 PM) /2014 [place] URINE AND UA 0.2 0.1 - 1.0 05/16 [place] STOOL Urobilinogen /2014 [place] URINE AND UA Leuk Est Negative Negative 05/16 [place] STOOL (05/16/15 6:27 PM) [place] URINE AND UA Nitrite Negative Negative 05/16 [place] STOOL (05/16/15 6:27 PM) [place] URINE AND UA Sq Epi Rare /LPF Few /LPF 05/16 [place] STOOL [place] URINE AND UA WBC 0-2 /HPF None Seen 05/16 [place] STOOL /HPF /2014 [place] URINE AND UA RBC 0-2 /HPF 0 - 2 05/16 [place] STOOL [place] URINE AND UA Bacteria None Seen None Seen 05/16 [place] STOOL (05/16/15 6:27 PM) /2014 [place] URINE AND UA Renal Epi 0-2 /LPF None Seen 05/16 [place] STOOL /LPF /2014 [place] URINE AND UA Hyal Cast 11-20 0 - 2 05/16 [facility] STOOL (05/16/15 6:27 PM) [place] CARDIAC Troponin-I <0.02 0.00 - 05/16 [facility] ENZYMES 0.40 /2014 [place] CARDIAC Total CK 11 12 - 191 05/16 [facility] ENZYMES [facility] CARDIAC CK MB <0.5 0.5 - 3.6 05/16 [facility] ENZYMES /2014 [place] CARDIAC CK MB Index <4.5 0.0 - 2.5 05/16 [facility] ENZYMES /2014 [facility] HEMATOLOGY Anisocyte 1+ None Seen 05/16 [facility] *ABN* /2014 [facility] (05/16/15 5:24 PM) HEMATOLOGY Spherocyte Occasional None Seen 05/16 [facility] *ABN* /2014 [facility] (05/16/15 5:24 PM) HEMATOLOGY Microcyte 1+ None Seen 05/16 [facility] *ABN* /2014 [facility] (05/16/15 5:24 PM) HEMATOLOGY Plt Morph Normal 05/16 [facility] (05/16/15 5:24 PM) [place] URINE AND Occult Bld Negative Negative 05/16 [facility] STOOL [facility] (05/16/15 5:24 PM) [facility] CHEM PANEL eGFR 59 04/27 <sup>3</sup>R [facility] Comment: The eGFR is calculated using the CKD-EPI formula. In most young, healthy individuals the eGFR will be >90 mL/min/1.73m2 . The eGFR declines with age. An eGFR of 60-89 may be normal in some populations, particularly the elderly, for whom the CKD-EPI formula has not been extensively validated. Use of the eGFR is not recommended in the following populations:& lt;br/>
I ndividuals with unstable creatinine concentration s, including patients and those with serious co-morbid conditions.<b r/>
Patie nts with extremes in muscle mass or diet.

The data above are obtained from the [employer] (NKDEP) which additionally recommends that when the eGFR is used in patients with extremes of body mass index for purposes of drug dosing, the eGFR should be multiplied by the estimated BMI. CHEM PANEL CO2 23 24 - 32 04/27 [facility] CHEM PANEL Potassium 4.0 3.5 - 5.1 04/27 [facility] [place] CHEM PANEL Chloride Lvl 100 95 - 109 04/27 [facility] [place] CHEM PANEL Calcium Lvl 8.2 8.5 - 10.5 04/27 [facility] [place] CHEM PANEL BUN 35 7 - 22 04/27 [facility] [place] CHEM PANEL Creatinine 1.2 0.5 - 1.4 10 [facility] [place] CHEM PANEL Glucose Lvl 131 70 - 99 10 <sup>6</sup>I [facility] [place] nterpretive [facility] Data: Adult reference range values reflect the clinical guidelines
of the [place] [employer]. CHEM PANEL Sodium Lvl 132 135 - 145 04/27 [facility] [place] CHEM PANEL AGAP 13.0 10.0 - 0610 [facility] [place] 20.0 /2014 [place] HEMATOLOGY Basophils # 0.0 0.0 - 0.2 06/10 [facility] [place] /2015 [place] HEMATOLOGY Monocytes 16.8 2.0 - 12.0 06/10 [facility] [place] /2015 [place] HEMATOLOGY Basophils 0.4 0.0 - 1.0 06/10 [facility] [place] /2015 [place] HEMATOLOGY Lymphocytes 1.5 1.0 - 5.5 06/10 [facility] [place] # /2015 [place] HEMATOLOGY Segs-Bands # 4.6 1.5 - 8.1 06/10 [facility] [place] /2015 [place] HEMATOLOGY Eosinophils 0.1 0.0 - 0.5 06/10 [facility] [place] # /2015 [place] HEMATOLOGY Monocytes # 1.3 0.0 - 0.8 06/10 [facility] [place] /2015 [place] HEMATOLOGY Lymphocytes 20.2 20.0 - 06/10 [facility] [place] 40.0 /2014 [place] HEMATOLOGY Eosinophils 1.0 0.0 - 4.0 06/10 [facility] [place] /2015 [place] HEMATOLOGY Segs 61.6 45.0 - 06/10 [facility] [place] 75.0 /2014 [place] HEMATOLOGY MCHC 32.6 32.0 - 06/10 [facility] [place] 36.0 /2014 [place] HEMATOLOGY Platelet 203 133 - 450 06/10 [facility] [place] /2015 [place] HEMATOLOGY MCH 29.4 27.0 - 06/10 [facility] [place] 31.0 /2014 [place] HEMATOLOGY WBC 7.5 3.7 - 10.4 /10 [facility] [place] /2015 [place] HEMATOLOGY RBC 2.87 4.70 - 06/10 [facility] [place] 6.10 /2014 [place] HEMATOLOGY Hgb 8.4 14.0 - /10 [facility] [place] 18.0 /2014 [place] HEMATOLOGY MCV 90.1 80.0 - /10 [facility] [place] 94.0 /2014 [place] HEMATOLOGY Hct 25.9 42.0 - 06/10 [facility] [place] 54.0 /2014 [place] HEMATOLOGY RDW 15.6 11.5 - 06/10 [facility] [place] 14.5 /2014 [place] HEMATOLOGY MPV 8.4 7.4 - 10.4 /10 [facility] [place] /2015 [place] CHEM PANEL eGFR 59 06/07 <sup>4</sup>R [facility] [place] /2014 [place] Comment: The eGFR is calculated using the CKD-EPI formula. In most young, healthy individuals the eGFR will be >90 mL/min/1.73m2 . The eGFR declines with age. An eGFR of 60-89 may be normal in some populations, particularly the elderly, for whom the CKD-EPI formula has not been extensively validated. Use of the eGFR is not recommended in the following populations:& lt;br/>
I ndividuals with unstable creatinine concentration s, including patients and those with serious co-morbid conditions.<b r/>
Patie nts with extremes in muscle mass or diet.

The data above are obtained from the National Kidney Disease Education Program (NKDEP) which additionally recommends that when the eGFR is used in patients with extremes of body mass index for purposes of drug dosing, the eGFR should be multiplied by the estimated BMI. CHEM PANEL Calcium Lvl 8.4 8.5 - 10.5 04/24 [place] /2014 [place] CHEM PANEL CO2 24 24 - 32 04/24 [place] CHEM PANEL Sodium Lvl 129 135 - 145 04/24 [place] CHEM PANEL Chloride Lvl 96 95 - 109 04/24 [place] [facility] CHEM PANEL Potassium 5.2 3.5 - 5.1 04/24 [place] Lvl [facility] CHEM PANEL Glucose Lvl 350 70 - 99 04/24 <sup>7</sup>I [place] /2014 nterpretive [facility] Data: Adult reference range values reflect the clinical guidelines
of the [place] [employer]. CHEM PANEL Creatinine 1.2 0.5 - 1.4 04/24 [place] Lvl [facility] CHEM PANEL BUN 35 7 - 22 04/24 [place] [facility] CHEM PANEL AGAP 14.2 10.0 - 04/24 [place] 20.0 [facility] BLOOD BANK Antibody Negative 04/21 [place] RESULTS Scrn (04/20/15 10:58 PM) [facility] BLOOD BANK ABO/Rh A POS 04/21 [place] RESULTS [facility] BLOOD BANK RBC product Product available 1 04/21 <sup> 1</sup>R [place] RESULTS (04/20/15 9:05 PM) ult [facility] Comment: 04/21/2015 00:32 [id number]
notified Sudheer HARRY RN that RBC is ready HEMATOLOGY MPV 9.0 7.4 - 10.4 04/20 [place] /2014 [facility] HEMATOLOGY RDW 16.2 11.5 - 04/20 [place] 14.5 /2014 [place] HEMATOLOGY MCHC 33.5 32.0 - / [place] 36.0 /2014 [place] HEMATOLOGY MCH 30.8 27.0 - 04/20 [place] 31.0 /2014 [place] HEMATOLOGY MCV 91.8 80.0 - 04/20 [place] 94.0 /2014 [facility] HEMATOLOGY Hct 24.5 42.0 - 04/20 [place] 54.0 /2014 [place] HEMATOLOGY Hgb 8.2 14.0 - 04/20 [place] 18.0 /2014 [place] HEMATOLOGY RBC 2.66 4.70 - / [place] 6.10 /2014 [place] HEMATOLOGY WBC 8.7 3.7 - 10.4 / [place] /2015 [place] HEMATOLOGY Platelet 279 133 - 450 04/20 MH [place] [facility] HEMATOLOGY Monocytes # 1.1 0.0 - 0.8 04/20 [place] /2014 [facility] HEMATOLOGY Basophils # 0.0 0.0 - 0.2 04/20 [place] HEMATOLOGY Eosinophils 0.1 0.0 - 0.5 04/20 [place] # /2014 [place] HEMATOLOGY Lymphocytes 1.4 1.0 - 5.5 04/20 [place] # /2014 [facility] HEMATOLOGY Segs-Bands # 6.0 1.5 - 8.1 04/20 [place] [facility] HEMATOLOGY Basophils 0.4 0.0 - 1.0 04/20 [place] HEMATOLOGY Eosinophils 1.5 0.0 - 4.0 / [place] /2014 [place] HEMATOLOGY Monocytes 12.7 2.0 - 12.0 04/20 [place] [facility] HEMATOLOGY Lymphocytes 16.6 20.0 - 04/20 [place] 40.0 /2014 [place] HEMATOLOGY Segs 68.8 45.0 - 04/20 [place] 75.0 /2014 [place] CHEM PANEL eGFR 54 06 <sup>5</sup>R [place] Comment: The eGFR is calculated using the CKD-EPI formula. In most young, healthy individuals the eGFR will be >90 mL/min/1.73m2 . The eGFR declines with age. An eGFR of 60-89 may be normal in some populations, particularly the elderly, for whom the CKD-EPI formula has not been extensively validated. Use of the eGFR is not recommended in the following populations:& lt;br/>
I ndividuals with unstable creatinine concentration s, including patients and those with serious co-morbid conditions.<b r/>
Patie nts with extremes in muscle mass or diet.

The data above are obtained from the National Kidney Disease Education Program (NKDEP) which additionally recommends that when the eGFR is used in patients with extremes of body mass index for purposes of drug dosing, the eGFR should be multiplied by the estimated BMI. CHEM PANEL Potassium 4.1 3.5 - 5.1 06/02 [facility] [place] Lvl /2014 [place] CHEM PANEL Creatinine 1.3 0.5 - 1.4 06/ MH [place] Lvl /2014 [place] CHEM PANEL Sodium Lvl 131 135 - 145 06/ [facility] [place] /2014 [place] CHEM PANEL BUN 41 7 - 22 06/ [facility] [place] /2014 [place] CHEM PANEL Glucose Lvl 106 70 - 99 06/ <sup>8</sup>I [facility] [place] /2014 nterpretive [place] Data: Adult reference range values reflect the clinical guidelines
of the [place] [employer]. CHEM PANEL AST 31 0 - 37 06/02 [facility] [place] /2014 [place] CHEM PANEL Alk Phos 108 39 - 136 06/02 [facility] [place] /2014 [place] CHEM PANEL ALT 28 0 - 65 06/02 [facility] [place] /2014 [place] CHEM PANEL Bili Total 0.6 0.2 - 1.3 06/ [facility] [place] /2014 [place] CHEM PANEL Total 5.7 6.4 - 8.4 06/ MH [place] Protein /2014 [place] CHEM PANEL Albumin Lvl 1.9 3.5 - 5.0 06/02 [facility] [place] /2014 [place] CHEM PANEL Chloride Lvl 98 95 - 109 06/02 [facility] [place] /2015 [place] CHEM PANEL CO2 22 24 - 32 06/02 [facility] [place] /2015 [place] CHEM PANEL Calcium Lvl 7.8 8.5 - 10.5 06/02 [facility] [place] /2015 [place] CHEM PANEL AGAP 15.1 10.0 - 06/02 [facility] [place] 20.0 /2015 [place] CHEM PANEL B/C Ratio 32 6 - 25 06/02 [facility] [place] /2015 [place] CHEM PANEL Globulin 3.8 2.0 - 4.0 06/02 [facility] [place] /2015 [place] CHEM PANEL A/G Ratio 0.5 0.7 - 1.6 06/02 [facility] [place] /2015 [place] HEMATOLOGY Platelet 300 133 - 450 06/02 [facility] [place] /2015 [place] HEMATOLOGY MPV 9.1 7.4 - 10.4 06/ MH [place] /2014 [place] HEMATOLOGY MCHC 33.9 32.0 - 06/ [place] 36.0 /2014 [place] HEMATOLOGY RDW 16.0 11.5 - 06/ [place] 14.5 /2014 [place] HEMATOLOGY WBC 12.7 3.7 - 10.4 06/ MH [place] /2014 [place] HEMATOLOGY Hgb 9.0 14.0 - 06/ [place] 18.0 /2014 [place] HEMATOLOGY RBC 2.88 4.70 - 06/ [place] 6.10 /2014 [place] HEMATOLOGY MCV 92.4 80.0 - 06/ [place] 94.0 /2014 [place] HEMATOLOGY MCH 31.3 27.0 - 06/ [place] 31.0 /2014 [place] HEMATOLOGY Hct 26.6 42.0 - 06/ [place] 54.0 /2014 [place] HEMATOLOGY Eosinophils 0.3 0.0 - 0.5 06/ [place] # /2014 [place] HEMATOLOGY Basophils # 0.1 0.0 - 0.2 06/ [place] /2014 [place] HEMATOLOGY Lymphocytes 1.7 1.0 - 5.5 06/ [place] # /2014 [place] HEMATOLOGY Eosinophils 2.0 0.0 - 4.0 06/ [place] /2014 [place] HEMATOLOGY Segs-Bands # 9.6 1.5 - 8.1 06/ [place] /2014 [place] HEMATOLOGY Monocytes # 1.1 0.0 - 0.8 06/ [place] /2014 [place] HEMATOLOGY Basophils 0.5 0.0 - 1.0 06/ [place] /2014 [place] HEMATOLOGY Monocytes 8.5 2.0 - 12.0 06/ [place] /2014 [place] HEMATOLOGY Segs 75.5 45.0 - 06/ [place] 75.0 /2014 [place] HEMATOLOGY Lymphocytes 13.5 20.0 - 06/ [place] 40.0 /2014 [place] CHEM PANEL Alk Phos 112 39 - 136 04/17 [facility] [place] /2014 [place] CHEM PANEL Bili Total 0.8 0.2 - 1.3 04/17 [facility] [place] /2014 [place] CHEM PANEL B/C Ratio 32 6 - 25 / MH [place] /2014 [place] CHEM PANEL Globulin 3.6 2.0 - 4.0 04/17 [facility] [place] /2014 [place] CHEM PANEL A/G Ratio 0.6 0.7 - 1.6 04/17 [facility] [place] /2014 [place] CHEM PANEL Total 5.6 6.4 - 8.4 05/31 [facility] [place] Protein /2014 [place] CHEM PANEL Albumin Lvl 2.0 3.5 - 5.0 05/31 [facility] [place] /2014 [place] CHEM PANEL AST 34 0 - 37 05/31 [facility] [place] /2014 [place] CHEM PANEL ALT 38 0 - 65 05/31 [facility] [place] /2014 [place] CHEM PANEL Bili Total 0.8 0.2 - 1.3 05/30 [facility] [place] /2014 [place] CHEM PANEL Albumin Lvl 2.1 3.5 - 5.0 05/30 [facility] [place] /2014 [place] CHEM PANEL Total 5.5 6.4 - 8.4 05/30 [facility] [place] Protein /2014 [place] CHEM PANEL B/C Ratio 28 6 - 25 05/ [facility] [place] /2014 [place] CHEM PANEL Alk Phos 106 39 - 136 05/ [facility] [place] /2014 [place] CHEM PANEL AST 41 0 - 37 05/30 [facility] [place] /2014 [place] CHEM PANEL ALT 45 0 - 65 05/30 [facility] [place] CHEM PANEL A/G Ratio 0.6 0.7 - 1.6 05/ [facility] [place] CHEM PANEL Globulin 3.4 2.0 - 4.0 05/ MH [place] /2014 [facility] BLOOD BANK ABO/Rh A POS 04/15 MH [place] RESULTS /2014 [facility] BLOOD BANK Antibody Negative 04/15 [facility] [place] RESULTS Scrn (04/15/15 1:52 PM) /2014 [facility] BLOOD BANK RBC product Product available 2 04/15 <sup> 2</sup>R [facility] [place] RESULTS (04/15/15 12:09 PM) /2014 [place] Comment: 04/15/2015 16:33 [id number]
Contacted to RN. Calos Javier at 04/15/2015 16:33 by Farida Ceballos CHEM PANEL Phosphorus 4.0 2.5 - 4.5 05/ MH [place] /2014 [place] CHEM PANEL Magnesium 1.8 1.8 - 2.4 05/ [facility] [place] CHEM PANEL Magnesium 2.0 1.8 - 2.4 05/ MH [place] CHEM PANEL Phosphorus 3.2 2.5 - 4.5 05/ [facility] [place] CHEM PANEL Bili 0.3 0.0 - 1.0 05/24 [facility] [place] Indirect [place] CHEM PANEL Bili Direct 0.2 0.0 - 0.3 04/10 [place] [facility] TOXICOLOGY Vanco Lvl 15.7 04/10 <sup>9</sup>I [place] nterpretive [place] Data: Therapeutic Range:
Trough: 10 - 20 ug/mL
Peak: 20 - 40 ug/mL
Potential Toxicity: >80 ug/mL CHEM PANEL Phosphorus 3.4 2.5 - 4.5 04/09 [facility] CHEM PANEL Magnesium 2.3 1.8 - 2.4 04/09 [place] Lvl [facility] HEMATOLOGY Bands 8.0 0.0 - 11.0 04/09 [facility] HEMATOLOGY Atypical 0.0 <=0.0 % 04/09 [facility] Lymphs [facility] HEMATOLOGY Plt Morph Normal 04/09 [place] (04/09/15 5:19 AM) [facility] HEMATOLOGY Tot Cell Ct 100 04/09 [facility] HEMATOLOGY INR 1.43 0.85 - 04/09 <sup>14</sup> [place] 1.17 [place] Data: RECOMMENDED RANGES FOR PROTIME INR:
2.0-3.0 for most medical and surgical thromboemboli c states.
2.5-3.5 for artificial heart valves and recurrent embolism.<br/ >
INR SHOULD BE USED ONLY FOR PATIENTS ON STABLE ANTICOAGULANT THERAPY. HEMATOLOGY PT 17.7 12.0 - 04/09 [place] 14.7 [facility] HEMATOLOGY PTT 35.4 22.9 - 04/09 <sup>16</sup> [place] 35.8 [place] Data: Heparin Therapeutic Range: 57 - 92 Seconds TOXICOLOGY Vanco Lvl 14.9 04/09 <sup>10</sup> [place] Interpretive [place] Data: Therapeutic Range:
Trough: 10 - 20 ug/mL
Peak: 20 - 40 ug/mL
Potential Toxicity: >80 ug/mL BACTERIAL MRSA by PCR Negative 18 04/09 <sup>18</sup> [place] - SEROLOGY (04/08/15 7:24 PM) Interpret[place] Data: Interpretive Data: The [employer] Light[employer] MRSA assay is a qualitative test for the direct detection of nasal colonization with methicillin-r esistant Staphylococcu s aureus (MRSA) to aid in the prevention and control of MRSA infections in healthcare settings. A positive result does not indicate an infection or require treatment. A negative result does not exclude colonization or infection.

The polymerase chain reaction (PCR) assay detects a proprietary sequence indicative of the integration of the SCCmec cassette into the Staphylococcu s aureus chromosome, indicating the presence of MRSA DNA. The assay utilizes FDA cleared IVD reagents. Performance characteristi cs have been verified by the [facility] Laboratory within the [facility]. The Molecular Diagnostic Laboratory is authorized under the Clinical Laboratory Improvement Amendment of 1988 (CLIA-88) to perform high complexity testing. CARDIAC Troponin-I 0.05 0.00 - 04/08 [place] ENZYMES 0.40 [facility] CHEM PANEL Bili 0.2 0.0 - 1.0 04/08 [place] Indirect [facility] CHEM PANEL Bili Direct 0.3 0.0 - 0.3 04/08 [place] [facility] HEMATOLOGY Bands 14.0 0.0 - 11.0 04/08 [place] [facility] HEMATOLOGY Tot Cell Ct 100 04/08 Sugar [facility] HEMATOLOGY Atypical 0.0 <=0.0 % 04/08 [place] Lymphs [facility] HEMATOLOGY RBC Morph Normal 04/08 [place] (04/08/15 2:58 AM) [facility] HEMATOLOGY Plt Morph Normal 04/08 [place] (04/08/15 2:58 AM) [facility] TOXICOLOGY Vanco Lvl 24.6 04/08 <sup>11</sup> [place] gar Interpretive [place] Data: Therapeutic Range:
Trough: 10 - 20 ug/mL
Peak: 20 - 40 ug/mL
Potential Toxicity: >80 ug/mL URINE CHEM U Sodium 20 04/07 <sup>13</sup> [place] Interpretive [facility] Data: No established reference ranges. URINE CHEM U Creatinine 160.9 04/07 <sup>12</sup> [place] Interpretive [facility] Data: No established reference ranges. URINE AND UA Amorph Few /HPF None Seen 04/07 [place] STOOL Patricia /HPF /2014 [facility] URINE AND UA Mucus Rare /LPF None Seen 04/07 [place] STOOL /LPF /2014 [place] URINE AND UA Protein Negative Negative 04/07 [place] STOOL (04/07/15 6:44 PM) /2014 [place] URINE AND UA Ketones Negative Negative 04/07 [place] STOOL *NA* /2014 [place] (04/07/15 6:44 PM) URINE AND UA Glucose Negative Negative 04/07 [place] STOOL (04/07/15 6:44 PM) /2014 [place] URINE AND UA pH 5.0 5.0 - 8.0 04/07 [place] STOOL [place] URINE AND UA RBC 3-5 /HPF 0 - 2 04/07 [place] STOOL [place] URINE AND UA WBC 0-2 /HPF None Seen 04/07 [place] STOOL /HPF /2014 [place] URINE AND UA Sq Epi Few /LPF Few /LPF 04/07 [place] STOOL [place] URINE AND UA Leuk Est Negative Negative 04/07 [place] STOOL (04/07/15 6:44 PM) [place] URINE AND UA Nitrite Negative Negative 04/07 [place] STOOL (04/07/15 6:44 PM) [place] URINE AND UA 0.2 0.1 - 1.0 04/07 [place] STOOL Urobilinogen /2014 [place] URINE AND UA Bacteria Few /HPF None Seen 04/07 [place] STOOL /HPF /2014 [place] URINE AND UA Blood Trace Negative 04/07 [place] STOOL *ABN* /2014 [facility] (04/07/15 6:44 PM) URINE AND UA Bili Small Negative 04/07 [place] STOOL *ABN* /2014 [facility] (04/07/15 6:44 PM) URINE AND UA Turbidity Slight Cloudy Clear 04/07 [place] STOOL (04/07/15 6:44 PM) /2014 [place] URINE AND UA Color Yellow Yellow 04/07 [place] STOOL *NA* /2014 [facility] (04/07/15 6:44 PM) URINE AND UA Spec Grav >=1.030 <=1.030 04/07 [place] STOOL *ABN* /2014 [facility] (04/07/15 6:44 PM) URINE CHEM U Eos None Seen None Seen 04/07 [place] (04/07/15 6:44 PM) [facility] CARDIAC CK MB 1.8 0.5 - 3.6 04/07 [place] ENZYMES /2014 [facility] CARDIAC Troponin-I <0.02 0.00 - 04/07 [place] ENZYMES 0.40 /2014 [place] CHEM PANEL Lactic Acid 1.9 0.5 - 2.2 04/07 [place] Lvl /2014 [facility] HEMATOLOGY Tot Cell Ct 100 04/07 [place] /2014 [place] HEMATOLOGY Plt Morph Normal 04/07 [place] (04/07/15 6:28 AM) [place] HEMATOLOGY Atypical 0.0 <=0.0 % 04/07 [place] Lymphs /2014 [facility] HEMATOLOGY Bands 14.0 0.0 - 11.0 04/07 [place] URINE AND UA RBC 3-5 /HPF 0 - 2 04/06 [place] STOOL /2014 [place] URINE AND UA Sq Epi Occasional Few /LPF 04/06 [place] STOOL /LPF /2014 [place] URINE AND UA WBC 3-5 /HPF None Seen 04/06 [place] STOOL /HPF /2014 [place] URINE AND UA 0.2 0.1 - 1.0 04/06 [place] STOOL Urobilinogen /2014 [place] URINE AND UA Nitrite Negative Negative 04/06 [place] STOOL (04/06/15 11:00 AM) [place] URINE AND UA Bacteria Occasional None Seen 04/06 Sarkar gar STOOL /HPF /HPF /2014 [place] URINE AND UA Ketones Negative Negative 04/06 [place] STOOL *NA* /2014 [place] (04/06/15 11:00 AM) URINE AND UA Leuk Est Negative Negative 04/06 [place] STOOL (04/06/15 11:00 AM) [place] URINE AND UA Blood Negative Negative 04/06 [place] STOOL (04/06/15 11:00 AM) [place] URINE AND UA Bili Negative Negative 04/06 [place] STOOL *NA* /2014 [place] (04/06/15 11:00 AM) URINE AND UA Glucose Negative Negative 04/06 [place] STOOL (04/06/15 11:00 AM) [place] URINE AND UA pH 5.5 5.0 - 8.0 04/06 [place] STOOL [place] URINE AND UA Protein 30 mg/dL Negative 04/06 [place] STOOL mg/dL [place] URINE AND UA Spec Grav 1.010 <=1.030 04/06 [place] STOOL [place] URINE AND UA Color Yellow Yellow 04/06 [place] STOOL *NA* /2014 [place] (04/06/15 11:00 AM) URINE AND UA Turbidity Clear Clear 04/06 [place] STOOL (04/06/15 11:00 AM) [place] BLOOD BANK ABO/Rh A POS 04/06 [place] RESULTS /2014 [facility] BLOOD BANK Antibody Negative 04/06 [place] RESULTS Scrn (04/06/15 10:10 AM) /2014 [facility] CHEM PANEL Lactic Acid 2.3 0.5 - 2.2 04/06 [place] Lvl /2014 [place] CHEM PANEL Lipase Lvl 126 73 - 393 04/06 [place] /2014 [place] HEMATOLOGY PT 14.8 12.0 - 04/06 [place] 14.7 /2014 [place] HEMATOLOGY INR 1.15 0.85 - 04/06 <sup>15</sup> [place] 1. Interpretive [place] Data: RECOMMENDED RANGES FOR PROTIME INR:
2.0-3.0 for most medical and surgical thromboemboli c states.
2.5-3.5 for artificial heart valves and recurrent embolism.<br/ >
INR SHOULD BE USED ONLY FOR PATIENTS ON STABLE ANTICOAGULANT THERAPY. HEMATOLOGY PTT 32.9 22.9 - 04/06 <sup>17</sup> [place] 35.8 Interpretive [facility] Data: Heparin Therapeutic Range: 57 - 92 Seconds HEMATOLOGY Monocytes # 0.6 0.0 - 0.8 04/03 [place] /2014 [facility] HEMATOLOGY Lymphocytes 1.2 1.0 - 5.5 04/03 [place] # /2014 [facility] HEMATOLOGY Eosinophils 0.2 0.0 - 0.5 04/03 [place] # /2014 [facility] HEMATOLOGY Basophils # 0.0 0.0 - 0.2 04/03 [place] /2014 [facility] HEMATOLOGY Monocytes 7.4 2.0 - 12.0 04/03 [place] HEMATOLOGY Eosinophils 1.8 0.0 - 4.0 04/03 [place] /2014 [place] HEMATOLOGY Segs 76.7 45.0 - 04/03 [place] 75.0 /2014 [place] HEMATOLOGY Basophils 0.2 0.0 - 1.0 04/03 [place] [facility] HEMATOLOGY Segs-Bands # 6.7 1.5 - 8.1 04/03 [place] ar /2014 [facility] HEMATOLOGY Lymphocytes 13.9 20.0 - 04/03 [place] 40.0 /2014 [facility] HEMATOLOGY MCHC 33.8 32.0 - 04/03 [place] 36.0 /2014 [place] HEMATOLOGY MPV 8.1 7.4 - 10.4 04/03 [facility] HEMATOLOGY Platelet 273 133 - 450 04/03 [facility] HEMATOLOGY RDW 15.2 11.5 - 04/03 [place] 14.5 /2014 [facility] HEMATOLOGY Hgb 9.9 14.0 - 04/03 [place] 18.0 /2014 [facility] HEMATOLOGY MCH 32.6 27.0 - 04/03 [place] 31.0 /2014 [facility] HEMATOLOGY RBC 3.05 4.70 - 04/03 [place] 6.10 /2014 [facility] HEMATOLOGY WBC 8.8 3.7 - 10.4 04/03 [facility] HEMATOLOGY MCV 96.3 80.0 - 04/03 [place] 94.0 /2014 [facility] HEMATOLOGY Hct 29.4 42.0 - 04/03 [place] 54.0 /2014 [facility] CHEM PANEL Phosphorus 3.3 2.5 - 4.5 04/02 [facility] CHEM PANEL Magnesium 1.9 1.8 - 2.4 04/02 [place] [facility] CHEM PANEL eGFR 74 04/02 <sup>2</sup>R [facility] Comment: The eGFR is calculated using the CKD-EPI formula. In most young, healthy individuals the eGFR will be >90 mL/min/1.73m2 . The eGFR declines with age. An eGFR of 60-89 may be normal in some populations, particularly the elderly, for whom the CKD-EPI formula has not been extensively validated. Use of the eGFR is not recommended in the following populations:& lt;br/>
I ndividuals with unstable creatinine concentration s, including patients and those with serious co-morbid conditions.<b r/>
Patie nts with extremes in muscle mass or diet.

The data above are obtained from the National Kidney Disease Education Program (NKDEP) which additionally recommends that when the eGFR is used in patients with extremes of body mass index for purposes of drug dosing, the eGFR should be multiplied by the estimated BMI. CHEM PANEL Sodium Lvl 138 135 - 145 04/02 [place] CHEM PANEL Creatinine 1.0 0.5 - 1.4 04/02 [place] CHEM PANEL Chloride Lvl 101 95 - 109 04/02 [place] CHEM PANEL Calcium Lvl 8.5 8.5 - 10.5 05/16 MH [place] ar /2015 [place] CHEM PANEL Potassium 4.1 3.5 - 5.1 05/16 MH [place] Lvl /2014 [place] CHEM PANEL CO2 30 24 - 32 05/16 MH [place] /2014 [place] CHEM PANEL Glucose Lvl 109 70 - 99 05/ <sup>5</sup>I MH [place] /2014 nterpretive [place] Data: Adult reference range values reflect the clinical guidelines
of the [place] [employer]. CHEM PANEL BUN 20 7 - 22 05/16 MH [place] /2014 [place] CHEM PANEL AGAP 11.1 10.0 - 05/16 MH [place] 20.0 /2015 [place] HEMATOLOGY Basophils # 0.0 0.0 - 0.2 05/16 MH [place] /2014 [place] HEMATOLOGY Eosinophils 0.1 0.0 - 0.5 05/16 MH [place] # /2014 [place] HEMATOLOGY Monocytes # 0.8 0.0 - 0.8 / MH [place] /2014 [place] HEMATOLOGY Lymphocytes 1.5 1.0 - 5.5 05/ [place] # /2014 [place] HEMATOLOGY Segs 74.2 45.0 - 05/16 MH [place] 75.0 /2014 [place] HEMATOLOGY Eosinophils 0.7 0.0 - 4.0 05/16 MH [place] /2014 [place] HEMATOLOGY Segs-Bands # 6.8 1.5 - 8.1 05/16 MH [place] /2014 [place] HEMATOLOGY Monocytes 8.8 2.0 - 12.0 05/16 MH [place] /2014 [place] HEMATOLOGY Lymphocytes 15.9 20.0 - 05/16 [place] 40.0 /2015 [place] HEMATOLOGY Basophils 0.4 0.0 - 1.0 05/16 [facility] [place] /2015 [place] HEMATOLOGY Platelet 273 133 - 450 05/16 [facility] [place] /2015 [place] HEMATOLOGY MPV 8.0 7.4 - 10.4 05/16 [facility] [place] /2015 [place] HEMATOLOGY Hct 29.8 42.0 - 05/16 MH [place] 54.0 /2015 [place] HEMATOLOGY MCH 31.8 27.0 - 05/16 MH [place] 31.0 /2014 [place] HEMATOLOGY MCV 97.0 80.0 - 05/16 [place] 94.0 /2014 [place] HEMATOLOGY RDW 15.5 11.5 - 05/16 [place] 14.5 /2015 [place] HEMATOLOGY MCHC 32.8 32.0 - 05/16 [place] 36.0 /2015 [place] HEMATOLOGY RBC 3.08 4.70 - 04/02 MH [place] 6.10 /2015 [facility] HEMATOLOGY WBC 9.2 3.7 - 10.4 / MH [place] /2014 [facility] HEMATOLOGY Hgb 9.8 14.0 - 04/02 MH [place] 18.0 /2014 [place] CHEM PANEL Magnesium 2.1 1.8 - 2.4 04/01 MH [place] Lvl /2014 [facility] CHEM PANEL Phosphorus 2.9 2.5 - 4.5 04/01 [facility] [place] /2014 [place] ELECTROLYT AGAP 10.5 10.0 - 04/01 MH [place] ES 20.0 /2014 [place] ELECTROLYT eGFR 66 04/01 <sup>3</sup>R MH [place] ES /2014 [facility]ult [place] Comment: The eGFR is calculated using the CKD-EPI formula. In most young, healthy individuals the eGFR will be >90 mL/min/1.73m2 . The eGFR declines with age. An eGFR of 60-89 may be normal in some populations, particularly the elderly, for whom the CKD-EPI formula has not been extensively validated. Use of the eGFR is not recommended in the following populations:& lt;br/>
I ndividuals with unstable creatinine concentration s, including patients and those with serious co-morbid conditions.<b r/>
Patie nts with extremes in muscle mass or diet.

The data above are obtained from the National Kidney Disease Education Program (NKDEP) which additionally recommends that when the eGFR is used in patients with extremes of body mass index for purposes of drug dosing, the eGFR should be multiplied by the estimated BMI. ELECTROLYT CO2 31 24 - 32 04/01 [facility] [place] ELECTROLYT Chloride Lvl 101 95 - 109 04/01 [place] /2014 [place] ELECTROLYT BUN 17 7 - 22 04/01 [facility] /2014 [place] ELECTROLYT Calcium Lvl 8.7 8.5 - 10.5 04/01 [facility] [place] /2014 [place] ELECTROLYT Sodium Lvl 138 135 - 145 04/01 [facility] /2014 [place] ELECTROLYT Potassium 4.5 3.5 - 5.1 04/01 [facility] Lvl /2014 [place] ELECTROLYT Glucose Lvl 112 70 - 99 04/01 <sup>6</sup>I [facility] nterpretive [place] Data: Adult reference range values reflect the clinical guidelines
of the [place] [employer]. ELECTROLYT Creatinine 1.1 0.5 - 1.4 05/15 [facility] Lvl /2014 [place] HEMATOLOGY Segs 80.4 45.0 - 05/15 [facility] 75.0 /2014 [place] HEMATOLOGY Monocytes 8.5 2.0 - 12.0 05/15 [facility] [place] /2015 [place] HEMATOLOGY Lymphocytes 10.8 20.0 - 05/15 [facility] 40.0 /2015 [place] HEMATOLOGY Eosinophils 0.1 0.0 - 4.0 05/15 [facility] [facility] /2015 [place] HEMATOLOGY Basophils 0.2 0.0 - 1.0 05/15 [facility] /2015 [place] HEMATOLOGY Segs-Bands # 12.3 1.5 - 8.1 05/15 [facility] /2015 [place] HEMATOLOGY Monocytes # 1.3 0.0 - 0.8 05/15 [facility] [place] /2015 [place] HEMATOLOGY Lymphocytes 1.6 1.0 - 5.5 05/15 [facility] [place] # /2015 [place] HEMATOLOGY Basophils # 0.0 0.0 - 0.2 05/15 [facility] [place] /2015 [place] HEMATOLOGY Eosinophils 0.0 0.0 - 0.5 05/15 [facility] [place] # /2015 [place] HEMATOLOGY WBC 15.2 3.7 - 10.4 05/15 [facility] /2015 [place] HEMATOLOGY Hgb 10.6 14.0 - 05/15 [facility] 18.0 /2014 [place] HEMATOLOGY MCHC 33.2 32.0 - 05/15 [facility] 36.0 /2015 [place] HEMATOLOGY RBC 3.30 4.70 - 05/15 [facility] [place] 6.10 /2015 [place] HEMATOLOGY MPV 7.6 7.4 - 10.4 /15 [facility] [place] /2015 [place] HEMATOLOGY MCV 97.0 80.0 - 05/15 [facility] [place] 94.0 /2015 [place] HEMATOLOGY Hct 32.0 42.0 - 05/15 [facility] [place] 54.0 /2015 [place] HEMATOLOGY MCH 32.2 27.0 - 05/15 [facility] 31.0 /2015 [place] HEMATOLOGY Platelet 303 133 - 450 /15 [facility] /2015 [place] HEMATOLOGY RDW 15.2 11.5 - 05/15 [facility] 14.5 /2015 [place] CHEM PANEL eGFR 66 03/31 <sup>4</sup>R [facility] [place] /2014 [facility] [place] Comment: The eGFR is calculated using the CKD-EPI formula. In most young, healthy individuals the eGFR will be >90 mL/min/1.73m2 . The eGFR declines with age. An eGFR of 60-89 may be normal in some populations, particularly the elderly, for whom the CKD-EPI formula has not been extensively validated. Use of the eGFR is not recommended in the following populations:& lt;br/>
I ndividuals with unstable creatinine concentration s, including patients and those with serious co-morbid conditions.<b r/>
Patie nts with extremes in muscle mass or diet.

The data above are obtained from the National Kidney Disease Education Program (NKDEP) which additionally recommends that when the eGFR is used in patients with extremes of body mass index for purposes of drug dosing, the eGFR should be multiplied by the estimated BMI. CHEM PANEL BUN 19 7 - 22 03/31 [facility] [place] CHEM PANEL Glucose Lvl 132 70 - 99 03/31 <sup>7</sup>I [facility] /2014 nterpretive [facility] Data: Adult reference range values reflect the clinical guidelines
of the [place] [employer]. CHEM PANEL Potassium 4.4 3.5 - 5.1 03/31 [facility] [place] CHEM PANEL Sodium Lvl 136 135 - 145 03/31 [place] CHEM PANEL Chloride Lvl 100 95 - 109 03/31 [place] CHEM PANEL Creatinine 1.1 0.5 - 1.4 03/31 [facility] [place] CHEM PANEL CO2 29 24 - 32 03/31 [facility] [place] CHEM PANEL Calcium Lvl 8.7 8.5 - 10.5 03/31 [place] CHEM PANEL AGAP 11.4 10.0 - 03/31 [place] 20.0 [place] CHEM PANEL Phosphorus 3.5 2.5 - 4.5 03/31 [place] CHEM PANEL Magnesium 1.7 1.8 - 2.4 03/31 [facility] [place] Lvl [facility] HEMATOLOGY RBC Morph Normal 03/31 [facility] (03/31/15 7:51 AM) [facility] HEMATOLOGY Plt Morph Normal 03/31 [facility] (03/31/15 7:51 AM) /2014 [facility] BLOOD BANK RBC product Product available 1 03/30 <sup> 1</sup>R [place] RESULTS (03/30/15 1:01 PM) /2014 [place] [place] Comment: 03/30/2015 13:59 [id number]
Notified to Lisbet Brooks (RN) at 03/30/2015 13:55 for RBC units are available by MARYANN. BLOOD BANK ABO/Rh A POS 03/30 [facility] RESULTS /2014 [place] BLOOD BANK Antibody Negative 03/30 [facility] [place] RESULTS Scrn (03/30/15 8:50 AM) /2014 [place] CHEM PANEL ALT 35 0 - 65 05/ [facility] [place] /2014 [place] CHEM PANEL Albumin Lvl 2.6 3.5 - 5.0 05/ [facility] [place] /2014 [place] CHEM PANEL Bili Total 1.1 0.2 - 1.3 05/ [facility] [place] /2014 [place] CHEM PANEL AST 42 0 - 37 05/13 [facility] [place] /2014 [place] CHEM PANEL Alk Phos 159 39 - 136 05/ [facility] /2014 [place] CHEM PANEL Total 5.9 6.4 - 8.4 05/ [facility] Protein /2014 [place] CHEM PANEL Globulin 3.3 2.0 - 4.0 05/ [facility] [place] /2014 [place] CHEM PANEL B/C Ratio 15 6 - 25 05/13 [facility] [place] /2014 [place] CHEM PANEL A/G Ratio 0.8 0.7 - 1.6 05/ [facility] [place] /2014 [place] CARDIAC Troponin-I <0.02 0.00 - 05/12 [facility] ENZYMES 0.40 /2014 [place] CHEM PANEL Total 6.3 6.4 - 8.4 05/12 [facility] [place] Protein /2014 [place] CHEM PANEL B/C Ratio 18 6 - 25 05/12 [facility] [place] /2014 [place] CHEM PANEL Albumin Lvl 2.8 3.5 - 5.0 05/ [facility] [place] CHEM PANEL AST 66 0 - 37 05/12 [facility] [place] /2014 [place] CHEM PANEL Alk Phos 197 39 - 136 05/12 [facility] [place] /2014 [place] CHEM PANEL Bili Total 2.1 0.2 - 1.3 05/ [facility] [place] /2014 [place] CHEM PANEL A/G Ratio 0.8 0.7 - 1.6 05/ [facility] [place] /2014 [place] CHEM PANEL ALT 43 0 - 65 05/12 [facility] [place] /2014 [place] CHEM PANEL Globulin 3.5 2.0 - 4.0 05/ [facility] [place] /2014 [place] URINE AND UA Ketones Negative Negative 05 [facility] STOOL mg/dL mg/dL /2014 [place] URINE AND UA Glucose Negative Negative 03/28 [facility] STOOL mg/dL mg/dL /2014 [place] URINE AND UA pH 6.0 5.0 - 8.0 03/28 [facility] [place] [place] URINE AND UA Protein Negative Negative 03/28 [facility] STOOL mg/dL mg/dL /2014 [place] URINE AND UA Spec Grav 1.020 <=1.030 03/28 [facility] ST[facility]OL [place] URINE AND UA Turbidity Clear Clear 03/28 [facility] STOOL (03/28/15 1:59 PM) /2014 [place] URINE AND UA Color Yellow Yellow 03/28 [place] STOOL *NA* /2014 [place] (03/28/15 1:59 PM) URINE AND UA Bili Negative Negative 03/28 [place] STOOL *NA* /2014 [facility] (03/28/15 1:59 PM) URINE AND UA Leuk Est Negative Negative 03/28 [facility] STOOL (03/28/15 1:59 PM) [place] URINE AND UA Nitrite Negative Negative 03/28 [facility] (03/28/15 1:59 PM) [place] URINE AND UA Blood Negative Negative 03/28 [facility]OOL (03/28/15 1:59 PM) /2014 [place] URINE AND UA 0.2 0.1 - 1.0 03/28 [place] STOOL Urobilinogen /2014 [place] URINE AND UA RBC None Seen 0 - 2 03/28 [facility] (03/28/15 1:59 PM) [place] URINE AND UA Bacteria Occasional None Seen 03/28 S[facility] gar STOOL /HPF /HPF /2014 [place] URINE AND UA Sq Epi None Seen Few 03/28 [place] [facility]OOL (03/28/15 1:59 PM) [place] URINE AND UA WBC 0-2 /HPF None Seen 03/28 [place] STOOL /HPF /2014 [facility] CARDIAC CK MB Index 4.3 0.0 - 2.5 03/28 [place] ENZYMES [facility] CARDIAC Troponin-I <0.02 0.00 - 03/28 [place] ENZYMES 0.40 /2014 [facility] CARDIAC Total CK 54 12 - 191 03/28 [place] ENZYMES [facility] CARDIAC CK MB 2.3 0.5 - 3.6 03/28 [place] ENZYMES [facility] CHEM PANEL Amylase Lvl 43 25 - 115 03/28 [facility] CHEM PANEL Lipase Lvl 155 73 - 393 03/28 [facility] CHEM PANEL Globulin 4.0 2.0 - 4.0 03/28 [facility] CHEM PANEL Bili Total 0.5 0.2 - 1.3 03/28 [facility] CHEM PANEL A/G Ratio 0.8 0.7 - 1.6 03/28 [facility] CHEM PANEL B/C Ratio 22 6 - 25 03/28 [facility] CHEM PANEL ALT 31 0 - 65 03/28 Sugar [facility] CHEM PANEL Alk Phos 108 39 - 136 03/28 [facility] CHEM PANEL AST 34 0 - 37 03/28 [facility] CHEM PANEL Albumin Lvl 3.0 3.5 - 5.0 03/28 [place] /2014 [facility] CHEM PANEL Total 7.0 6.4 - 8.4 03/28 Protein [facility] HEMATOLOGY Anisocyte 1+ None Seen 03/28 [facility] *ABN* /2014 [facility] (03/28/15 1:43 PM) HEMATOLOGY Plt Morph Normal 03/28 [facility] (03/28/15 1:43 PM) /2014 [facility] HEMATOLOGY INR 1.06 0.85 - 03/28 <sup>8</sup>I [place] 1.17 nterpretive [facility] Data: RECOMMENDED RANGES FOR PROTIME INR:
2.0-3.0 for most medical and surgical thromboemboli c states.
2.5-3.5 for artificial heart valves and recurrent embolism.<br/ >
INR SHOULD BE USED ONLY FOR PATIENTS ON STABLE ANTICOAGULANT THERAPY. HEMATOLOGY PTT 34.6 22.9 - 03/28 <sup>9</sup>I [place] 35.8 /2014 nterpretive [facility] Data: Heparin Therapeutic Range: 57 - 92 [facility] HEMATOLOGY PT 13.8 12.0 - 03/28 [facility] 14.7 [facility] Pathology Reports No Data Provided for This Section Diagnostic Reports Report Value Date Source Abdomen/Pelvis wo IV CT ABDOMEN AND PELVIS WITHOUT CONTRAST 10/19 [facility] contrast CT INDICATION: Generalized abdominal pain, CT dose DLP 1021.22 COMPARISON: CT abdomen/pelvis 04/11/2018 DISCUSSION: ABDOMEN: There is atelectasis or poss ible infiltrate at the bilateral lung bases, greatest at the dependent aspects of the bilateral lower lobes. The gallbladder is not seen, presumed absent. There is stable mil d nonspecific bilateral lluvia nephric stranding. The kidneys are otherwise grossly unremarkable. The liver, spleen, pancreas, and adrenal glands are grossly normal in morphology. Postoperative changes are noted at the gastric antrum and small bowel. Partial right hemicolectomy is again noted. There is mild colonic diverticulosis, without evidence of diverticulitis. The stomach and bowel loops are otherw ise grossly unremarkable, wi thout evidence of bowel obstruction. No free fluid is seen. The abdominal aorta is normal in caliber. Extensive atherosclerotic calcification of the abdominal aorta is noted. PELVIS: There is a grossly stable ov oid fluid collection in the right inguinal region, measuring approximately 10.6 x 6.2 cm. The collection is not obviously connected to the bladder. The bladder is grossly unr emarkable. The prostate is not seen, potentially absent. BONES: No acute bony abnormalities are seen. IMPRESSION: 1. Grossly stable indetermin ate 10.6 cm ovoid fluid collection in the right inguinal region. 2. Mild diverticulosis, without evidence of dive rticulitis. 3. Atelectasis or possible i nfiltrate at the lung bases. In the proper clinical setting, this finding may be secondary to pneumonia. SL:16 Chest 1view DX PROCEDURE: Chest Radiograph. 11/10/2018 [facility] Clinical Indication: Abdominal pain. Comparison: Chest radiograph 04/11/2018. FINDINGS: The chest shows biapical ple ural thickening. There is irregular opacity in the right upper lobe. A left IJ port catheter is present with tip in the region of the cavoatrial junction. There is minimal bl unting of the costophrenic a ngles suggesting very small bilateral pleural effusions. The cardiac silhouette is en larged and the thoracic aorta is tortuous. Degenerative change involves the thoracic spine. IMPRESSION: 1. Biapical pleural thickeni ng with irregular opacity in the right upper lobe, underlying neoplasm cannot be entirely excluded and correlation with chest CT is recommended, if indicated clinically. 2. Cardiomegaly with small bilateral pleural eff usions SL:[id number] Abdomen 2 views DX EXAM: Abdomen 2 views DX 06/04/2018 [facility] [place] HISTORY: - sbo COMPARISON: 06/03/2018 Heavy mitral calcifications are noted at the bas e of the heart. There are air-fluid levels i n mildly prominent loops of small bowel in the midabdomen possibly indicating obstruction. Multiple bowel sutures are present. There is stool and gas in the colon. No free air is evident. IMPRESSION: Possible small bowel obstruction. Abdomen 2 views DX ABDOMEN TWO VIEWS: 06/03/2018 [facility] and CLINICAL HISTORY: - sbo. COMPARISON STUDY: 10/08/2015. FINDINGS: Presence of a nasogastric tube is no sarah. The supine and upright abdom inal radiographs show a non- obstructive bowel gas pattern. Evidence of prior cholecystectomy is seen. Anastomotic staple line suggestive of prior surgery is noted in the upp er abdomen. No pneumoperito neum, air fluid levels, or mass effect. No radiopaque calculi or calcifications are noted. Arteriosclerotic calcifications are noted in the aortoiliac vessels and the splenic artery. Soft tissue fullnes s likely represents a distended urinary bladder. There is no evidence of hepatosplenomegaly. Mild degenerative changes are seen in the lumbar spine. Dense calcification in the mitral annulus is noted. IMPRESSION: Non- obstructive bowel gas pattern . Carotid artery Doppler Patient Name: TOMER CLAYTON [place] bil[place] US : 1940; Age: 77 years y/o Male MR: [id number] Study: Carotid artery Doppler bilat US 04/12/2018 11:34 AM CDT Ordering Physician: Robbin Abreu MD Clinical Indication: - syncopal ; Comparison: 09/02/2016 ultrasound and the MRA fr om yesterday Discussion: Real time grayscale, color D oppler imaging, and spectral waveform analysis was performed of the bilateral extracranial carotid arterial system. Doppler criteria is by SRU and grayscale criteria is by NASCET. Right: Scattered absence chr onic plaques again most notable in the right carotid bulb with ulceration. The waveforms are within normal limits. The right vertebral artery is antegrade in flow. The high est velocity within the righ t ICA system is 148 cm/sec. This is mildly elevated. The ICA/CCA ratio is 1.33, and is within normal limits. External carotid artery velocity also mildly elevated at 150 cm/s. Left: Moderate atherosclerot ic plaque most notable in the left mid common carotid artery and the carotid bulb. The left vertebral artery is antegrade in flow. The highest velocity within the left ICA system is 116 cm/sec. This is within normal limits. The ICA/CCA ratio is 0.63, and is within normal limits. External carotid artery is moderate increased systolic velocity of 256 cm/s. Impression: 1. Moderate bilateral common carotid artery and carotid bulb plaques. By Doppler criteria there is a 50-69% stenosis of the proximal right internal carotid artery. Suspected moderate left and mild right external carotid artery stenoses. However, on recent MRA, the stenosis on the right is of the distal common carotid artery at the bulb measuring approximately 50-60% by NASCET criteria. There is also a 40-50% stenosis of the proximal left common carotid artery on the study. 2. Vertebral arteries are a ntegrade in flow. The vertebral artery origins were not well assessed on prior MRA related to patient and pulsation motion. If there is further clinical concern, consider CTA. Neck wo contrast MRA 04/11/2018 [place] Sex: Male. : 1940. Technique: 2-D, 3-D time-of- flight SPGR axial acquisition was performed with multiplanar computer generated MIP reformations on the high field magnet. The degree of stenosis was made directly by measurement=NASCET criteria for CTA MRA. Clinical History: Syncope - near syncope. Right side: The right common carotid artery is normal. The bulb is slightly narrowed. The internal carotid artery is slightly narrowed proximally. The external carotid artery is normal. The vertebral artery is normal. Left side: The left common c arotid artery is mildly narrowed in its midportion. The bulb is mildly narrowed. The internal carotid artery is shows mild proximal segment stenosis up to about 40%. The ext ernal carotid artery is normal. The vertebral ar balta is normal. Impression: 1. Bilateral atheromatous findings notably proxi mal left ICA. Brain wo contrast MRA 04/11/2018 [facility] and Sex: Male. : 1940. Technique: 3-D [id number] SPGR axial acquisition was performed with multiplanar computer generated MIP reformations on the high field magnet. The degree of stenosis was made directly by measurement=NASCET criteria for CTA MRA. Clinical History: Syncope - near syncope. The distal internal carotid arteries - petrous, cavernous and supraclinoid segments show mild atheromatous narrowing of the left cavernous segment. The right A1 artery is marcela l. The left A1 artery is shows mild segmental narrowing. The distal branches of the bilateral anterior c erebral arteries are normal. The right M1 artery is marcela l. The distal branches of the right middle cerebral artery are normal. The left M1 artery is normal. The distal branches of the left middle cerebral artery are normal. The distal right vertebral a rtery is normal. The distal left vertebral artery is normal. The basilar artery is normal. The basilar tip is normal. The right posterior cerebral artery is normal. The left posterior cerebral artery is normal. origin noted on the right. There is no evidence for hig h grade stenosis. There is no evidence for major vascular occlusion. There is no evidence for aneurysm. Impression: 1. Atheromatous narrowing in the left cavernous carotid artery and left A1 segment. No other significant lesion. Brain wo contrast MRI 04/11/2018 [facility] and Sex: Male. : 1940. Technique: Sagittal, axial a nd coronal sequences through the brain with T1, T2, FLAIR, GRE and diffusion weighting on the high field magnet. Clinical History: Syncope - near syncope. Chronic dizziness. Hypertension. Lung cancer. Comparison studies: CT scan 04/11/2018 at 1716. The diffusion weighted exam shows no evidence for restricted diffusion or acute infarct. There is multifocal mild-to- moderate bilateral chronic white matter microvascular ischemic signal. There is no intracranial mass or mass effect. There is no midline shift. There is no extra-axial fluid collection. Ventricles, subarachnoid spaces and sulci are mi ldly widened from atrophy. There is no evidence for hydrocephalus. The posterior fossa is intact. There is normally maintained signal void in the major vasculature. The sella and suprasellar cistern are normal. Paranasal sinuses are aerated. Orbits are normal and symmetric. Noting bilatera l cataract surgery. IMPRESSION: 1. No acute infarct. No evid ence for mass. Consider contrast enhanced MRI in light of the clinical history of lung cancer as indicated. 2. Chronic white matter vasculopathy. 3. Atrophy. Abdomen/Pelvis wo IV Addendum comment: Correction : Impression #4 should read as follows: 04/11/[address] 4. New fluid collection in t he right side of the pelvis. Seroma or abscess less likely than bladder diverticulum. Scans with IV contrast may be helpful regarding the latter. Sex: Male. : 1940. Technique: Axial scans throu gh the abdomen and pelvis including multiplanar computer reformations. Total Dose Length Product: 506. This exam was performed according to our departmental dose optimizatio n program which includes aut omated exposure control, adjustment of the mA and/or kV according to patient size and/or use of iterative reconstruction technique. Comparison studies: September 02, 2016. Clinical history: - abd radha n. Hypertension. Skin cancer. 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 Partial SBO. Gastric ulcer. Cholecystectomy. Partial colon resection. Findings: Liver: Size: 17.5 cm. Parenchyma: No mass to the limits of visualizat ion without IV contrast. Vasculature: Portal and hepa tic veins: Portal vein 15 mm. Otherwise not evaluated-noncontrast examination. Spleen: The spleen is 12 cm. Gallbladder: Cholecystectomy. Bile ducts: Common bile duct is 6 mm. Pancreas: normal. Adrenal glands: There is no bilateral adrenal gl ands. Kidneys: The right kidney lo oks slightly edematous. The renal pelvis is dilated and measures 29 x 16 mm. The transition is at the ureteropelvic junction. No other obstructing lesion evident. Bladder: Distended urinary b ladder 13 cm. Oval fluid collection in the right pelvis contiguous with an apparently separate from the bladder otherwise isodense with urine 8.1 x 5.2 x 6.5 cm tracks along the anterior pelvic wall. Th e central density is in the lower water range. There are no air pockets. There does appear to be a thin wall. Prostate: Prostate is diminutive. 2.8 cm. Small calcification. Intestinal tract: Stomach and duodenum: Gas and fluid in the stoma ch. Small bowel: Jejunal loops m easure up to 2.8 cm. Ileal loops measure up to 2 cm. There are fluid levels in the small bowel. There are several small bowel loops contiguous with the anterior abdominal wall. Possible adhesion pattern. Large bowel: The rectum is d istended with stool and measures 6 cm. Increased proximal colonic stool burden. There is a right hemicolectomy. The anastomotic suture line is seen on the right side without a clearcut mass. Appendix: -. Mesentery and Omentum: No evidence for mesenteri c omental mass or caking.. Vasculature: Aorta: Moderate calcificatio n. There is no aneurysm. There is aortic stenosis. There is severe calcification in the superior mesenteric artery with long segment severe stenosis. There is calcification i n the bilateral renal arteri es greater on the left with severe stenosis. There is extensive calcification in the splenic artery. Iliac arteries: There is mod erate bilateral iliac calcification and segmental stenosis. Retroperitoneum: No evidence for retrocrural, enlarged periaortic or enlarged iliac adenopathy. Free fluid: There is no ascites. Musculoskeletal: Musculature, abdominal wall and soft tissues: There is no abdominal or pelvic wall mass or fluid collection Skeletal structures: Lumbar spondylosis. No mass or destructive lesion otherwise. Lung bases: There is small b asilar scarring and pleural thickening unchanged. Mitral annular calcification. Impression: 1. Right hemicolectomy. Rachael sly patent anastomosis. The small bowel loops show generalized fluid levels and there may be adhesions. But no frankly dilated small bowel loops to indicate small bowel obstr uction at this time. Small bowel series may be m ore in follow-up. 2. Right renal pelviectasis. This is a stable and most likely developmental configuration. 3. Extensive atherosclerotic disease with significant stenosis suggested in the visceral and renal branches. CTA may be helpful. 4. New fluid collection in t he right side of the pelvis. Seroma or abscess. Less likely bladder diverticulum. Scans with IV contrast may be helpful regarding the latter. Brain wo contrast CT CLINICAL INFORMATION: 77-year-old male with syncope. 04/11/2018 Kailey Barger TECHNIQUE: CT brain without contrast. This exam was performed according to our departmental dose optimization program, which includes automated exposure control, adjustment of the mA and/or kv according to patient size and/or use of iterative reconst ruction technique. COMPARISON: 09/01/2016. FINDINGS: The ventricles and sulci are mildly prominent suggesting underlying volume loss, stable in comparison to the previous examination. The basal cisterns are within normal limits. The emery-white matter differ entiation is preserved. There is no mass effect, midline shift, intra or extra-axial fluid collection/acute hemorrhage. The osseous structures are w ithin normal limits. The paranasal sinuses and mastoid air cells are clear. IMPRESSION: 1. No acute intracranial abnormalities. 2. CT is insensitive for ear ly evaluation of acute stroke. If there is clinical concern for acute ischemia, MRI is recommended. Chest 1view DX EXAM: AP CHEST X-RAY 04/11/2018 [facility] [place] DATE: 04/11/2018 2:49 PM CDT . ORDERING PHYSICIAN: Paula Briscoe MD CLINICAL INDICATION: - syncope; TECHNIQUE: SINGLE FRONTAL VIEW OF THE CHEST COMPARISON: 09/01/2016 chest x-ray FINDINGS: Left-sided portaca theter is in place with tip overlying the lower SVC. The lungs are hyperinflated without dense consolidation consolidation. There are scattered interstitial prominence and sarkar ggestion of nodularity in th e right middle and upper lobes.. Heart and mediastinal contours are normal.There is no acute bony abnormality. IMPRESSION: Hyperinflated lungs with sandra picion of pulmonary nodules in the right lung, which may be further assessed by CT. This may be performed on a nonemergent basis depending on clinical indication. Brain wo contrast MRA BRAIN MRA WITHOUT CONTRAST 09/04/2016 [facility] Clinical History: Syncope. Sex: Male. : 1940. TECHNIQUE: 3-D [id number] t MRA without contrast. Source images as well as 3- D MIP and rotational reconstructions are interpreted. COMPARISON: Recent CT brain 09/01/2016 FINDINGS: Hypoplastic right TAR HEATER P1 segment with associated type origin of the right TAR HEATER is noted as a recognized anatomic variant of intracranial vascular development. The [place] is othe rwise unremarkable in config uration. There is no evidence of aneurysm , intracranial stenosis or major branch vessel occlusion. The anterior and posterior circulations demonstrate expected flow. IMPRESSION: No evidence of m ajor branch vessel occlusion or significant intracranial stenosis. Brain wo contrast MRI Clinical History Provided: Syncope. 2015 [facility] Sex: Male. : 1940. Procedure: Sagittal T1, axia l T1, T2, FLAIR, GRE sequences through the brain with axial diffusion weighting imaging have been obtained. The diffusion weighted exam shows no evidence for restricted diffusion or acute infarct. There are scattered subcorti faye, deep and periventricular white matter T2/flair hyperintensities most prominent about the peritrigonal regions-including mid natasha in keeping with mild chronic small vessel ischemic changes. There is no intracranial mass or mass effect. There is no midline shift. There is no extra-axial fluid collection. Ventricles, subarachnoid spa luis armando and sulci are mildly prominent in keeping with mild cerebral atrophic changes. There is no evidence for hydrocephalus. The posterior fossa is otherwise unremarkable in appearance for age. The major vasculature demonstrates expected flow voids. The sella and suprasellar cistern are normal. Paranasal sinuses are aerated. Orbits are normal and symmetric. Calvarium and skull base demonstrate no aggressi ve bone process. IMPRESSION: 1. Mild atrophic changes and chronic small vessel ischemic changes. No evidence of acute infarction. Neck CTA CLINICAL HISTORY:Syncope. 09/03/2016 [place] Sex: Male. : 1940. TECHNIQUE: Axial scans were performed through the head and neck with axial dataset following bolus intravenous injection of 100 cc of Omnipaque Including multiplanar and MIP reformations. Total Dose Leif gth Product: 675. The degree of stenosis was made directly by measurement=NASCET criteria for CTA MRA. CTA neck: Right side: Brachiocephalic artery although densely atherosclerotic remains patent.The right subclavian artery is patent although demonstrates dense atherosclerotic calcification at its origin. The righ t common carotid artery demo nstrates dense atherosclerotic calcification of the origin with no greater than 30% stenosis. Distally there is dense long segment atherosclerotic calcific change creating ap proximately 50% stenosis johanna ng its length to the carotid bifurcation the carotid bulb and proximal right internal carotid artery origins are densely calcific with at least 70% stenosis.. Right external carotid artery demonstrates dense atherosclerotic plaquing at the origin creating at least 50% stenosis. The vertebral artery demonstrates greater than 70% stenosis at its origin secondary to calcific a therosclerotic plaquing. Dis tally the vertebral artery remains patent to the head. Left side: The left subclavi an artery demonstrates diffuse atherosclerotic calcific changes that limits overall evaluation suggesting up to 70% stenosis just distal to the origin. The left common caroti d artery demonstrates 50% st enosis at its origin. The proximal left common carotid artery distal to the origin remains patent; however within its mid to distal portion it is densely calcific with a rela tively long segment of overt 3 cm proximal to the bifurcation of 50% stenosis. The left carotid bulb and proximal internal carotid artery demonstrate very dense atherosclerotic calcific changes that salazar its assessment; however ther e is at least 70% stenosis suggested of the left internal carotid artery origin. More distally the left internal carotid artery continues to the head and remains patent with diffuse atherosclerotic calc ific plaquing affecting the left carotid siphon. With no greater than 30% stenosis. Left external carotid artery is patent beyond the origin but demonstrates approximately 50 % stenosis at its origin.. T he left vertebral artery origin demonstrates 50% stenosis. There is some mild sclerotic plaquing along its course within the neck without any high-grade stenosis distally. I ntracranially the basilar ar balta remains patent with developmental variation at the terminus with a prominent left TAR HEATER origin and bulb is termination 50% stenosis of the left common carotid artery proximally. Of the basilar asymmetric to the right. IMPRESSION: 1. Extensive calcific atherosclerotic disease. 2. Bilateral extensive dista l common carotid artery atherosclerotic plaquing, common carotid artery bulb and proximal internal carotid artery creating at least 70% stenosis of the proximal internal carotid arteries bilaterally. 3. Right vertebral artery or igin high-grade stenosis of 70%; 50% stenosis of the origin of the right vertebral artery. 4. Great vessel origin ather osclerotic disease; most prominently affecting the left subclavian artery evidence suggesting 70% stenosis. The left common carotid artery origin demonstrates 50% stenosis. T he right common carotid artery origin demonstrat es 30% stenosis. Cardiac SPECT multi Cardiac SPECT stress and res t, myocardial perfusion wall motion, and myocardial perfusion ejection fraction, 09/03/2016 09/03/2016 [facility] studies [place] HISTORY: Syncopal episode, p ossible cardiac arrhythmia. Sinus bradycardia with first-degree AV block. TECHNIQUE: Pharmacologic str ess was performed after bolus infusion of 0.4 mg/ 5 ml Lexiscan, followed by 5 ml saline flush. 15 seconds later, 31.4 mCi of technetium labeled Cardiolite was injected. The resting exam was performed b y injecting 10.8 mCi of technetium labeled Cardiolite. Horizontal short axis and vertical long and short axis images were obtained. FINDINGS: The cardiac SPECT stress and rest images demonstrate no fixed or reversible perfusion defects. Mild diaphragmatic attenuation, normal variation. No evidence of stress-induced dilatation of left ventricle. The left ventricular wall mo tion study demonstrates minimal diffuse hypokinesis. The left ventricular ejection fraction equals 46 %. IMPRESSION: Normal cardiac SPECT with stress and rest. Abnormal left ventricular ej ection fraction (46%) with minimal diffuse hypokinesis.. Abdomen/Pelvis w IV CT OF ABDOMEN AND PELVIS WITH IV CONTRAS T, 09/02/2016 09/02/[address] [facility] [address] HISTORY: Acute abdominal pa in. Right lower quadrant and right groin pain for 3 days. History of cholecystectomy and right colon resection. TECHNIQUE: Sequential 5 mm axial postcontrast images were obtained from the hemidiaphragms through the symphysis pubis. Delayed axial images and sagittal and coronal reconstructions were performed. DLP: 867 mGy-cm. FINDINGS: Cardiomegaly with heavy calc ification within the mitral valve annulus. Bibasilar pleural thickening with minimal subpleural reticulation. No evidence of liver mass or bile duct dilatation. Surgically absent gallbladder. Mildly atrophic pancreas. Normal spleen. Normal adrenal glands and inferior vena cava. The abdominal aorta is heavi ly calcified. The superior mesenteric artery ostium is heavily calcified. High-grade stenosis stenosis of the celiac artery ostium suspected. Bilateral renal ostial calcifica tions noted, more prominent on the left than the right. The stomach is distended wit h fluid and an debris. Multiple staple lines in the right upper quadrant, most likely related to right hemicolectomy. Moderate constipation noted. No significant dilatation of small bowel loops. Degenerative changes in the lumbar spine and fortino ateral hips noted. IMPRESSION: Extensive abdominal aortic, renal, and visceral arterial calcifications. If abdominal angina is diagn ostic possibility, consider CTA of abdomen with contrast. No acute findings detected in the abdomen or pel vis. Carotid artery Doppler CAROTID ARTERY DOPPLER ULTRASOUND, 201509/02/2016 [facility] bilat US HISTORY: Carotid bruit. Compared to exam dated 05/26/2015. TECHNIQUE: Carotid ultrasoun d with color Doppler imaging and spectral analysis was performed. Degree of stenosis assessed by criteria developed by [facility] consensus conference on duplex ultrasound. FINDINGS: Extensive calcified plaque n oted in the right common carotid artery. Ulcerated plaque with intimal flap or floating thrombus noted in the distal left CCA or proximal left carotid bulb, more prominent on today's exam. Extensive faye cified and heterogeneous plaque noted in the right carotid bulb and proximal right internal carotid artery without elevated flow velocities. Extensive calcified plaq ue also noted in the proxima l right ECA without elevated flow velocity. The peak systolic velocity in the proximal right internal carotid artery equals 125 cm/s indicating less than 40% right internal carotid artery stenosis. There is more extensive calc ified and heterogeneous plaque noted in the left common carotid artery with Doppler frequency shift of 166 cm/s noted in the left mid common carotid artery and 162 cm/s in th e distal left common carotid artery. 2 cm heavily calcified plaque in the left carotid bulb and proximal internal carotid artery obscures detail. Flow velocities in the proximal left internal carotid ar balta are not elevated. The p eak systolic velocity in the proximal left internal carotid artery equals 103 cm/s. Heavy calcified plaque also noted in the proximal left ECA with Doppler frequency shift to 219 cm/s indicating greater than 50% proximal right external carotid artery stenosis. Flow velocities are overall less than on prior e xam. Antegrade vertebral artery flow noted. IMPRESSION: Ulcerated plaque with intima l flap or floating thrombus at the junction of right common carotid artery and right carotid bulb, more prominent on the current exam. No evidence of high-grade stenosis in the right carotid artery. Extensive calcified plaque i n the left common carotid artery with 40% stenosis at the level of left mid and distal common carotid artery. Extensive calcified plaque i n the left carotid bulb, proximal left internal carotid artery and proximal left ECA precludes Doppler evaluation. No elevated flow velocities or high-grade stenosis noted in the proximal left internal carotid artery. Greater than 50% proximal left ECA stenosis. Antegrade vertebral artery flow. If renal function permits, consider CTA neck for further evaluation. Chest 1view DX PORTABLE CHEST AP SEMIERECT 09/01/2016, 12:13 AM 09/01/2016 [facility] HISTORY: Syncope. Compared to exam dated 2014. Normal heart size. The thora cic aorta is calcified, but not dilated. Heavy calcification within the mitral valve annulus has a strong correlation with coronary artery disease. The lungs are hyperinflate d, but are otherwise free of active disease. Mild chronic blunting of the left costophrenic angle again noted. Degenerative changes in the thoracic spine and both shoulders. Surgical clips in the left a xilla. Comparison to prior exam demonstrates no new finding or change. IMPRESSION: No active disease in the chest. Brain wo contrast CT EXAM: CT BRAIN WITHOUT CONTRAST 09/01/2016 [facility] DATE: 09/01/2016 12:05 PM CDT TECHNIQUE : Noncontrast images of the br ain are obtained from the skull base to the vertex. Axial, sagittal, and coronal images are interpreted. DLP: 691 mGy-cm COMPARISON: Brain CT of 05/16/2015 FINDINGS: There is no evidence of cere bral edema, mass, mass effect, hemorrhage, recent cortical infarct. The emery-white distinction is maintained. There is moderate generalized cortical and deep white matter vol ume loss with passive enlarg ement of the ventricles and extra-axial spaces. Chronic small vessel ischemic changes are present. The lateral ventricles, cortical sulci, and basal cisterns are patent. There are calcified atherosclerotic changes. .The sinuses and skull base are unremarkable. IMPRESSION: 1. No intracranial hemorrhag e, early sign of acute cortical ischemia, or early signs of global anoxic injury 2. Generalized volume loss a nd chronic small vessel ischemic changes appear stable to 05/16/2015 Small bowel series DX GASTROGRAFIN SMALL BOWEL SERIES, 5 10/08/2015 [facility] HISTORY: Abdominal distenti on. History of right hemicolectomy and partial gastric resection. FLUOROSCOPIC TIME: Zero minutes TECHNIQUE: One bottle of Ga strografin was injected into the NG tube. Transit time to colon was 4 hours 10 minutes. FINDINGS: Account Coordinator film demonstrates naso gastric tube in the stomach. The gastric distention noted on CT of abdomen and pelvis with contrast dated 10/05/2015 is no longer present. Multiple surgical clips and staple lines are noted in the right mid and upper abdomen. Mild extrinsic compression on the gastric antrum and pylorus noted, most likely related to postop plication defect which compresses and mildly narrow s the gastric antrum and pyl orus. The duodenal sweep and the proximal jejunum are nondilated. Mildly dilated small bowel loops in the right upper abdomen at the surgical site (ileocolic anastomosis) ext ends lateral to the duodenum on the film made at one hour and 30 minutes. This small bowel is dilated and fecalized on recent CT. Small bowel loops in the left mid and lower abdomen are mildly dilated w ith nondilated small bowel l oops in the right pelvis and right lower quadrant. Film made at 4 hours to 10 minutes demonstrates contrast filling of the entire colon. CONCLUSION: There appears to be chronic partial small bowel obstruction in the right upper quadrant at or close to the ileocolic anastomosis related to either postop adhesions or internal hernia. In addition, there may be mild gastric outlet obstruction related to postop plication defect affecting the gastric antrum and pylorus. Abdomen AP DX Examination: Abdomen 1 view 10/07/2015 Kailey Barger Provided History: Nausea DIAGNOSIS: Nasogastric tube tip extends into the stomach. Further advancement by approxi- 10 cm would be more optimal. DISCUSSION: Radiographic exa m of the abdomen demonstrates no specific diagnostic pattern of the soft tissues. No obvious mechanical obstruction is evident. No abnormal calcification showing a diagnostic pattern is evident. No tavon r mass is defined. At this time gas fills the lumen of a minimally distended stomach. Operative kenneth in the mid right quadrant once again evident. There is a nasogastric tube with the tip just through the esophagogastric junction. Further introduction x 10 cm would be more optimal. Abdomen AP DX Examination: Abdomen 1 view 10/06/2015 Kailey Barger Provided History: Abdominal distension DIAGNOSIS: Introduction of a nasogastric tube w ith the tip overlying L1 DISCUSSION: Flatplate of the abdomen demonstrates a nasogastric tube with the tip overlying the midline at L1. The bowel gas pattern is nonspecific with extensive postoperative changes in the right abdomen. Increase in density in the m id abdomen likely reflects fluid-filled small bowel. The lung bases are clear. ED Abdomen/Pelvis IV Clinical history: Abdominal pain, acute. [place] contrast only CT Sex: M. : 1940. Technique: Axial scans throu gh the abdomen and pelvis with intravenous contrast using 100 cc of omnipaque 300 including multiplanar computer reformations. Total Dose Length Product: 930. This exam July 08, 2015. Findings: Liver is 15 cm. No mass. Spleen is normal. Gallbladder is not seen and surgically absent. Mild intrahepatic biliary prominence. Common hepatic duct is 8 mm.. Pancreas is normal. No adrenal mass. Bilateral kidneys appear normal. No evidence for mass or hydronephrosis. Normal distal ureters and bladder. Normal seminal vesicles. Normal prostate. Postoperative changes in the abdomen with apparent partial colonic resection. There is a persistent rim-enhancing fluid collection without gas in the left anterior pelvis that measures 4.7 cm mediolater al, 2.5 cm anterior-posterio r and 5.6 cm superior-inferior previously 6.0 x 3.5 x 8.3 cm. Abdominal drain has been removed. There are dilated fluid-filled loops of small bowel measuring up to 3.5 cm sin ce the last exam. There is t hickening around several of the small bowel loops in the anterior abdomen where there is some clustering suggesting adhesions. The stomach is moderately distended with food s tuff. Intestinal loops in th e right lower quadrant show mild mural enhancement. There is no new fluid collection or ascites. There is a very tiny fat-containing 16mm right inguinal hernia noted unchanged. Calcified aorta and iliac arteries without evide nce for aneurysm. No free fluid. Lung bases show a small amount of dependent atel ectasis. Skeletal structures show degenerative spondylosi s. Impression: 1. Decreasing left anterior abdominal abscess or seroma. 2. Segmental intestinal obstruction. 3. Small intrahepatic biliary prominence. 4. Small basilar pulmonary atelectasis. Chest 1view DX EXAM: Chest 1view 10/05/2015 [facility] HISTORY: Syncope COMPARISON: 05/16/2015 The cardiac silhouette is st able. There is no focal consolidation, effusion or pneumothorax. The bones are osteopenic. IMPRESSION: No acute abnormality or significant change from prior exam. Abdomen/Pelvis w IV Exam: CT abdomen with contrast; CT pel vis with contrast: 07/08/[address] [place] [address] History: Abscess. Prior hist ory includes surgery for stomach also an gallbladder. 707.9. Comparison Study: CT abdomen May 24, 2015, Upper gi series and small bowel follow-through June 14 2015 Findings: Following oral co ntrast administration, and after intravenous administration of 100 cc of Omnipaque-300, contiguous axial sections are obtained through the abdomen and pelvis including delaye d imaging, as per protocol.S agittal and coronal reformations are obtained...The reported DLP in mGy*cm is 1635 . The visualized lung bases ar e normal. Dense calcification is noted in the mitral annulus. Presence of a loculated flui d collection with enhancing wall is noted anterior to the small bowel loops and abutting the anterior abdominal wall, in the left mid abdomen. It measures 5.5 x 7.1 x 3.8 cm in size. A small track can b e followed extending to the right, in the area where the drain tip is situated in the right subhepatic region . This is best appreciated on the coronal image 29- 37. The liver is normal in size, attenuation, enhanc ement and outline.. The spleen is normal in size, attenuation, enhan cement and outline.. Normal appearance of the fortino iary tree, pancreas and adrenal glands are noted. The gallbladder is surgically absent... The kidneys demonstrate no evidence of renal faye culi or calcifications. The kidneys demonstrate norm al size, shape and outline demonstrating normal enhancement and contrast excretion. Normal appearance of the aor ta, IVC and retroperitoneum are noted. Dense arthrosclerotic calcifications are noted in the aorta. The bowel loops appear normal. The appendix is n ot identified. . There is no evidence of free intraperitoneal fl uid or air . CT examination of the pelvis demonstrates no evidence of mass or lymphadenopathy. The urinary bladder appears unremarkable. The prostate and seminal vesicles appear normal. There is no evidence of inguinal lymphadenopathy. . Degenerative disease is note d at L4-L5. Mild narrowing of the hip joint space is noted superolaterally.. Impression: Presence of a loculated flui d collection in the left mid abdomen consistent with abscess or infected hematoma. The drain does not appear to be passing through the area of this loculated collection. CT-g uided drainage should be considered for further followup. Upper GI air contrast w Examination: Stomach UGI air contr ast w/ Small Bowel 06/14/2015 [facility] Small Bowel DX History: Abdominal Pain Fluoroscopy Time: 3.1 minutes DIAGNOSIS: 1. Postoperative anastomotic entero-peritoneal fistula DISCUSSION: Double-contrast upper GI/small bowel examination was performed. History is noted of prior partial gastrectomy and gastroenterostomy with persistent upper abdominal leakage or abscess with in dwelling anterior peritoneal drain in place. Preliminary films of the upper and lower abdomen demonstrate an upper abdominal drain. No gross bowel obstruction. Numerous operative clips in the right upper quadrant. Initial exams of the esophag us demonstrated intermittent spasm of the esophagus although slowly draining into the stomach. There are postoperative changes of a subtotal gastrectomy and gastrojejunostomy . National views of the anas tomotic site demonstrated slow a progressive drainage into nondilated proximal small bowel. On delayed views taken predo minately of small bowel there is contrast extending from the gastroenterostomy site inferiorly and anteriorly as seen on a number of views including an oblique view of the st ach showing contrast exten ding somewhat anteriorly into the subcutaneous soft tissues, quite suspicious for anastomotic leak and fistula. The remainder the small nemo l is unremarkable other than several apparent kinks or adhesions but no evidence of high-grade small bowel obstruction. No free air is identified. This report was called to Dr Percy Dillon by the undersigned at 11:30 a.m., 14 June 2015. Ankle wo contrast MRI Clinical history: Erythema. 06/13/2015 [facility] Technique: Sagittal, Axial a nd Coronal sequences were performed through the left ankle utilizing STIR and PD weighted sequences on the high field magnet. Comparison foot MRI May 26, 2015. No radiographs for comparison. There are no T1 weighted images. There is a small area of signal in the subcortical lateral malleolus on proton density and STIR series 6 and 5 image 12. Remainder o f the lateral malleolus looks intact. The medial malleolus is unremarkable. No specific destructive changes. No other abnormal marrow signal. Small fluid in the medial flexor tendon sheaths. The tendons are normal. The peroneal tendons look intact. Extensor tendons are normal. Normal tarsal tunnel and tarsal sinus. There is a plantar heel spur but the aponeurosis is otherwi se normal. Normal Achilles t endon. Small fluid in the tibiotalar and subtalar joints. No soft tissue mass or fluid collection. Impression: 1. Small subcortical marrow edema in the lateral malleolus but no definitive destructive lesion. 2. Minimal medial flexor synovitis. Minimal effu sions. Foot w/wo contrast MRI Clinical history: Laceration. 05/26/2015 [facility] : 1940. Technique: Multiplanar T1, P D, STIR, and T2 weighted imaging of the right foot before and after intravenous injection of 7 cc of Omniscan. Comparison radiographs May 25, 2015. Findings: There is enhancing swelling along the plantar aspect of the medial forefoot and specifically in the first toe. There is marrow replacement in the tuft of the first distal phalanx with enhancement indica tive of osteomyelitis. The b ase of the first distal phalanx is spared. There is narrowing and synovial erosion of the first interphalangeal joint due to chronic arthrosis. The first metatarsal phalangea l joint is narrowed. There i s substantial articular effusion and synovial perforation with chronic synovial erosion along the head of the first metatarsal and dorsal margin of the base of the first prox imal phalanx. There is small amount of fluid in the second, third and fourth metatarsal phalangeal joints. Minimal articular fluid in the second through fifth interphalangeal joints. Hammertoe deformiti es noted. No additional acut e osseous destruction. Intrinsic musculature is atrophic. Flexor and extensor tendons look intact. Impression: 1. Cellulitis. Osteomyelitis of the tuft of the first distal phalanx. Carotid artery Doppler Examination: Carotid artery Doppler US 05/26/2015 [facility] bilat US History: Syncope and collapse DIAGNOSIS: 1. While there is no abnorma l carotid ratio that would suggest hemodynamically significant stenosis based on this study, there are extensive abnormalities including extensive plaque formation and bilate rally significantly elevated systolic velocities in both common and internal carotid arteries bilaterally. 2. The above-mentioned findi ngs are not specific for significant stenosis but I believe do warrant further evaluation. Correlative CT angiography would be useful. DISCUSSION: The study demons trates fairly extensive carotid plaque formation bilaterally. Of note are substantially el evated peak systolic velocities in both common carotid and internal carotid arteries. arteries. There is associated spectral broadening and frequency dispersion. Carotid velocity ratios are essentially within normal limits. However, due to the high velocities and extensive plaque formation, I believe CT angiography should be considered for further evaluation of the carotid arteries. Velocities: R ICA: 182 cm/sec R CCA: 181 cm/sec R ICA/CCA: 1.01 L ICA: 256 cm/sec L CCA: 168 cm/sec L ICA/CCA: 0.66 Vertebral Flow: Antegrade Foot 2 views DX Examination: Foot AP lateral 05/25/2015 whistleBox Provided History: Laceration DIAGNOSIS: Findings suspect for osteomyelitis of the terminal tuft of the great toe DISCUSSION: Two views right foot demonstrate marked soft tissue swelling of the great toe with cortical demineralization and erosion of the tip of the terminal tuft of the great toe suspect for osteomyelitis. No acute fractures. There is arterial calcificat ion evident. Abdomen/Pelvis w IV EXAMINATION: Abdomen/Pelvis w contrast CT 05/24/[address] DOSE: 882 mGy-cm HISTORY: Diarrhea DIAGNOSIS: 1. Right upper quadrant drai n in place. Some residual extraluminal gas and soft tissue thickening but no significant walled off abscess is identified 2. Mildly dilated loops of small bowel TECHNIQUE: CT scanning of th e abdomen and pelvis was completed utilizing dynamic MDCT with sagittal and coronal reconstructions. The study was completed using oral and intravenous contrast. The exam is compared to a prior study dated 16 May 2015. DISCUSSION: Account Coordinator views demo nstrate no incidental findings. Studies through the lung bases demonstrate minimal atelectasis. The liver and spleen show no focal abnormality. There is a subhepatic right up per quadrant percutaneous dr ain extending to the region of the gallbladder fossa with a small amount of extraluminal air adjacent to the catheter. I do not specifically identify a walled off abscess at this time. Mild adjacent soft tissue thickening. The pancreas is unremarkable . No biliary distention. The spleen is mildly prominent in size. Loops of small bowel are mod erately dilated with enteric suture line in the mid abdomen to be correlated with surgical history. The right colon appears resected. Both kidneys function withou t obstruction. Scans through the lower abdomen and pelvis demonstrate no significant free fluid. No pelvic mass. Abdomen AP DX Abdomen one view, 05/18/2015 05/18/2015 [facility] HISTORY: Abdominal distention. Compared to abdom en film dated 04/15/2015. Tip of abdominal drainage ca theter in the midline upper abdomen is again seen. The catheter tip pointed slightly more to the right of midline on prior exam. No significant bowel distention noted. Surgical clips in the right upper quadrant with possible staple line in the right upper quadrant. Degenerative changes in the lumbar spine. Abdomen/Pelvis w IV Clinical history: Abdominal pain, acute. [facility] contrast CT Sex: M. : 1940. Technique: Axial scans throu gh the abdomen and pelvis with gastrointestinal contrast and with intravenous contrast using 100 cc of omnipaque 300 including multiplanar computer reformations. The gastroi ntestinal contrast is limite d to the stomach. Total Dose (DLP): 2144 mGy-cm. Comparison April 06, 2015. Findings: Liver is 17.3 cm. No mass. Spleen is is prominent and measures 12.5 cm. Gallbladder is not seen and surgically absent. N o biliary dilatation. Pancreas is normal No adrenal mass. Bilateral kidneys appear normal. No evidence for mass or hydronephrosis. Normal distal ureters and bladder. Normal seminal vesicles and prostate. Upper abdominal intestinal a nastomosis from right hemicolectomy. Multiple fluid-filled loops of bowel. Left colonic loops mildly di lated up to 5.6 cm. Fluid-filled rectum is dilated measuring 7.7 cm. Upper abdominal percutaneous drainage catheter. Irregular collection in the anterior abdomen with multiple pockets of gas and fluid extends across the midline approximately 14 cm mediolateral, 1.5 cm an terior-posterior not entirel y from adjacent fluid-filled bowel loops. This is in the area of the previous gas collection that is substantially smaller. Calcified aorta and iliac arteries without evide nce for aneurysm. Negligible if any free fluid. Lung bases show small atelectasis and minimal pl eural fluid. Skeletal structures are unremarkable. Impression: 1. Percutaneous drainage cat heter and collection in the anterior abdomen consistent with persistent abscess. Mild intestinal dilatation. I discussed the findings with Dr. Carr at 9:00 p.m. Brain wo contrast CT CLINICAL HISTORY:Altered level of consc iousness. 05/16/2015 [facility] Sex: M. : 1940. TECHNIQUE: Axial scans of th e brain without contrast including multiplanar computer-generated reformations. Total Dose (DLP): 863 mGy-cm. There is no acute abnormal i ntracranial density or mass. There is no hemorrhage or extra-axial fluid collection. Ventricles, subarachnoid spaces and sulci are normal. Orbits are symmetric. Cataract surgery. Paranasal sinuses are aerated. IMPRESSION: 1. No acute intracranial findings. Chest 1view DX Clinical history: Dizziness. 05/16/2015 whistleBox : 1940. Technique: Portable AP chest x-ray on May 16, 2015 05:58:00 PM compared to previous on April 09, 2015. Heart size is smaller. Reduced vascular congest ion. No mediastinal or hilar mass. Reduced basilar infiltrate o r fluid. No new consolidation. No current pleural effusion. Impression: 1. Improved heart failure. Upper GI Series w water Examination: Stomach UGI (water so luble contrast) 04/15/2015 [facility] soluble DX History: Epigastric Pain Fluoroscopy Time: 1.9 minutes DIAGNOSIS: 1. No evidence of leakage 2. Other findings as below. DISCUSSION: Limited water- soluble contrast upper GI examination was performed. History is noted of postoperative patch for perforated gastric ulcer. Examination demonstrates no evidence of extravasation or leakage. There is a small sliding hiatal hernia identified. There is runoff into a nondilated duodenum and proximal jejunum. There is some prominence of rugal pattern along the greater curvature posteriorly, with 2 punctate collections of contrast, which may represent postoperative change. Chest 1view DX Exam: Chest X-ray, 1 view 04/09/2015 [facility] aaTag History: Abnormal chest sounds Comparison: 04/08/2015 Findings: Single portable f rontal view of the chest. NG tube and left PICC line are unchanged in positions . The heart size is upper norm al. The mediastinum is normal. Right perihilar vascular congestion is noted.. Increased retrocardiac density with obscuration of the left hemidiaphragm is suggestive of left lower lobe atelectasis. Smal l effusions are present. . No acute bony abnormality. . Impression: 1. No interval change. Abdomen AP DX HISTORY: Acute abdominal pain 04/07/2015 [facility] TECHNIQUE: Two views of the abdomen COMPARISON: None IMPRESSION: No evidence of free intraper itoneal air. Nonspecific gas-filled nondilated loops of small and large bowel are noted. No evidence of bowel obstruction. Cholecystectomy clips are seen. No acute osseous abnormality. No abnormal calcifications. Retroperitoneal Complete RENAL SONOGRAM 04/07/2015 Leopoldo holden [facility] US CLINICAL HISTORY: Renal insufficiency. COMPARISON IMAGING: None. FINDINGS: Right kidney: Length and cor tical thickness are 11.8 and 2.0 cm, respectively. No hydronephrosis, suspicious mass, or large shadowing calculus. Left Kidney: The left kidney is not well visualized secondary to positioning. Length and cortical thickness are 11.9 and 1.8 cm, respectively. No hydronephrosis, suspicious mass, or large shadowing calculus. Bladder: Decompressed by a Kwong catheter Vascular: Visualized portion s of the IVC are patent. No obvious aneurysmal dilatation of the aorta. IMPRESSION: 1. Limited visualization of the left kidney. 2. No sonographic evidence of acute abnormality. Chest 1view DX Clinical History: See Clinic Indication 04/06/20 15 [facility] Exam: CHEST April 06, 2015 04:34:00 AM Comparison: CT abdomen and pelvis done the same date exam. Findings: The lungs are clear. The he art is normal in size. There is no pneumothorax or pleural effusion. There is no acute fracture. There is a moderate amount of intraperitoneal free air IMPRESSION: No acute cardiopulmonary abn ormality. Moderate amount of intraperitoneal free air, likely postsurgical ED Abdomen/Pelvis IV Exam: CT abdomen/pelvis with contrast 04/[address] [facility] [address] Clinical History: Acute abdominal pain Comparison: 03/28/2015 TECHNIQUE: Helical images of the abdomen and pelvis were obtained from the lung bases to the symphysis pubis after the administration of intravenous contrast. Images were acquired in the portal venous a nd delayed phases. Sagittal and coronal reformat s were reviewed. DLP: 1413 Findings: The bilateral lung bases demonstrate minimal dep endent changes. Cholecystectomy. The liver, spleen, pancreas, and bilateral adrenal glands are unremarkable. The kidneys enhance symmetri levi. No focal parenchymal abnormalities identified. No hydronephrosis is present. There are changes of a right hemicolectomy. There is a moderate amount of free fluid and free air. Urinary bladder contains an air, likely due to instrumentation. No significant abdominal or pelvic lymphadenopathy is noted. No aggressive osseous lesion is identified. Atherosclerotic calcifications of the abdominal aorta are noted. IMPRESSION: Changes of a recent right he micolectomy and cholecystectomy with a moderate amount of free air and free fluid, likely postsurgical. No evidence of an abscess. Fluoroscopy assist to 1 No report is required for this exam. 10/2015 [facility] hour DX Technical component complete. Dose report sent t o PACS. Abdomen wo contrast MRI Clinical history: Abdominal pain, acute. 03/28/2015 [facility] Sex: M. : 1940. Technique: Multiplanar T1 an d T2 weighted imaging of the abdomen on the high- field magnet with M.R.C.P. sequences. Right upper quadrant ultrasound today at 1538 showed biliary dilatation, thickened gall bladder wall and tumefactive sludge. CT scan at 1422 showed fluid in the right upper quadrant and possible common bile duct stone. Findings: Liver is enlarged 19 cm. Spleen is 11.5 cm. Gallbladder measures 8.6 x 3.5 cm. Mild wall thickening approximately 5 mm. Small low signal intensities are suggested in the gallbladder and lumen indicative of small gallston es. The cystic duct is dilated about 8 mm also a small defect on series 11 image 25. There is mild central intrahepatic biliary dilatation. The common hepatic duct is dilated 1.4 cm. The common bile gina t is dilated 1.3 cm. There is irregular signal in the distal common bile duct. There is a meniscus defect just before the ampulla that measures 6 mm suspicious for a stone. T he proximal pancreatic duct is dilated and measures 7 mm. The right upper quadrant fluid at CT scan is less well detailed at the MRI exam today. Impression: 1. Dilated gallbladder, gall bladder wall thickening, probable small gallstones with cystic duct distention. 2. Biliary dilatation and di stal common bile duct stone suggested. Pancreatic ductal dilatation. Abdomen RUQ US Right upper quadrant abdominal ultrasound. 03/28 [facility] HISTORY: Abdominal pain. IMPRESSION: 1. Multiple, mobile intralum inal non shadowing echoes that resembles biliary sludge with no definite evidence of calcified gallstones. Prominent thickening of the gallbladder wall; measuring between 5 a nd 6 mm. Hypoechoic zone wit hin the wall of the gallbladder could reflect mural edema involving the gallbladder wall which could be associated with acute cholecystitis and/or developing gangrenous gallb ladder. If further evaluatio n clinically indicated, gallbladder HIDA scan recommended. 2. Dilated common bile duct; measuring 12 mm with no ultrasonic evidence of choledocholithiasis. No significant intrahepatic biliary dilatation. 3. Increased echo attenuatio n noted throughout the hepatic echo that resembles fatty liver with no evidence of space occupying disease. 4. Main portal vein measures 13 mm with hepatope raheem flow. 5. No evidence of ascites. 6. Right renal echo appears unremarkable. 7. Suboptimal visualization of the pancreatic ec ho due to bowel gas. ED Abdomen/Pelvis IV Exam: CT Scan of the abdomen and pelvis with contrast 03/28/[address] [facility] [address] Reason for Exam: Acute abdominal pain Comparison Exam: None available Technique: Multiple axial im ages were obtained of the abdomen and pelvis. 3.75 mm slices were acquired after injection of 100 cc Omnipaque 300 IV. Reformatted sagittal and coronal images were obtaine d for additional diagnostic information. Total e xam DLP = 2114 mGy-cm. Discussion: Visualized portions of the lung bases are unrema rkable. Liver is unremarkable in bobby earance. Portal venous system is patent. There is intrahepatic and extrahepatic biliary duct dilation with suspicion of a common bile duct stone within the distal common bile duct (series 601b, image 67 ). In addition, there is pericholecystic fluid as well as free fluid seen anterior to the duodenum (series 2, image 37). No pancreatic duct dilation identified. The spleen an d adrenal glands are within normal limits. Kidneys are unremarkable. No hydronephrosis or hydroureter. No dilated loops of bowel. The appendix is not definitively seen. However, there is no ancillary ev idence to suggest appendicit is. Prostate gland and bladder are unremarkable. No appreciable lymphadenopathy. No acute bony abnormalities appreciated. No suspicious osteoblastic or osteolytic lesions. No evidence seen for abdominal aortic aneurysm or dissection. However, there is heavy atherosclerotic plaque seen throughout much of the abdominal aorta. Consider further evaluation with short-term followup CTA of the abdomen. Impression: 1. Suspicion for choledocho lithiasis as detailed above. Consider further evaluation with gallbladder ultrasound. 2. Heavy atherosclerotic pl aque seen throughout much of the abdominal aorta. Consider further evaluation with short-term followup CTA of the abdomen. Consultation Notes No Data Provided for This Section Discharge Summaries No Data Provided for This Section History and Physicals No Data Provided for This Section Vital Signs Vital Sign Value Date Comments Source Respitory Rate 18 11/12/2018 [place] Temperature Oral (F) 97.9 F 11/12/2018 [facility] Heart Rate 68 11/12/2018 [place] Systolic (mm Hg) 164 11/12/2018 [place] Diastolic (mm Hg) 61 11/12/[address] Systolic (mm Hg) 179 11/12/2018 [place] Diastolic (mm Hg) 70 11/12/[address] Heart Rate 73 11/12/2018 [place] Respitory Rate 18 11/12/2018 [facility] Temperature Oral (F) 98.5 F 11/12/2018 [place] Resp[place] Rate 18 11/12/2018 [place] Systolic (mm Hg) 143 11/12/2018 [place] Diastolic (mm Hg) 64 11/12/[address] [facility] st Temperature Oral (F) 98.9 F 11/12/2018 [place] Heart Rate 74 11/12/2018 [facility] Height 187.96 cm 11/11/2018 [facility] Weight 90.909 11/11/2018 [facility] BMI Calculated 25.73 11/11/2018 [place] Systolic (mm Hg) 152 06/04/2018 [place] Diastolic (mm Hg) 65 06/04/2018 [place] Respitory Rate 18 06/04/2018 [facility] Heart Rate 57 06/04/2018 [facility] Temperature Oral (F) 98.0 F 06/04/2018 [place] Temperature Oral (F) 97.6 F 06/04/2018 [place] Systolic (mm Hg) 146 06/04/2018 [place] Diastolic (mm Hg) 67 06/04/2018 [place] Heart Rate 57 06/04/2018 [facility] Respitory Rate 18 06/04/2018 [facility] Temperature Oral (F) 97.4 F 06/04/2018 [place] Respitory Rate 18 06/04/2018 [facility] Heart Rate 66 06/04/2018 [facility] [place] Systolic (mm Hg) 143 06/04/2018 [facility] [place] Diastolic (mm Hg) 57 06/04/2018 [place] Weight 87.727 06/02/2018 [facility] Height 187.96 cm 06/02/2018 [facility] BMI Calculated 24.83 06/02/2018 [facility] Temperature Oral (F) 98.4 F 04/13/2018 [place] Heart Rate 20 04/13/2018 [facility] Systolic (mm Hg) 170 04/13/2018 [facility] [place] Diastolic (mm Hg) 64 04/13/2018 [place] Temperature Oral (F) 97.0 F 04/13/2018 [place] Systolic (mm Hg) 170 04/13/2018 [facility] [place] Diastolic (mm Hg) 63 04/13/2018 [place] Heart Rate 18 04/13/2018 [facility] Temperature Oral (F) 97.9 F 04/13/2018 [place] Systolic (mm Hg) 127 04/13/2018 [place] Diastolic (mm Hg) 65 04/13/2018 [place] Heart Rate 19 04/13/2018 [facility] Respitory Rate 20 04/12/2018 [facility] Respitory Rate 20 04/12/2018 [facility] Respitory Rate 20 04/12/2018 [facility] BMI Calculated 23.8 04/11/2018 [facility] Weight 86.364 04/11/2018 [facility] Height 190.5 cm 04/11/2018 [place] Weight 91.108 04/11/2018 [facility] BMI Calculated 25.79 04/11/2018 [place] Height 187.96 cm 04/11/2018 [facility] Systolic (mm Hg) 138 09/05/2016 [facility] [place] Diastolic (mm Hg) 46 09/05/2016 [place] Respitory Rate 16 09/05/2016 [facility] Systolic (mm Hg) 141 09/05/2016 [facility] [place] Diastolic (mm Hg) 52 09/05/2016 [place] Respitory Rate 13 09/05/2016 [place] Systolic (mm Hg) 122 09/05/2016 [place] Diastolic (mm Hg) 67 09/05/2016 [place] Respitory Rate 13 09/05/2016 [facility] Temperature Oral (F) 97.9 F 09/05/2016 [place] Temperature Oral (F) 98.0 F 09/05/2016 [place] Height 187.96 cm 09/05/2016 [facility] Temperature Oral (F) 98.1 F 09/05/2016 [place] Heart Rate 86 09/04/2016 [facility] Heart Rate 85 09/04/2016 [facility] Heart Rate 84 09/03/2016 [facility] Weight 84.091 09/01/2016 [facility] BMI Calculated 23.8 09/01/2016 [facility] Height 187.96 cm 09/01/2016 [facility] Temperature Oral (F) 97.4 F 10/11/2015 [place] Heart Rate 48 10/11/2015 [facility] Systolic (mm Hg) 121 10/11/2015 [place] Diastolic (mm Hg) 64 10/11/2015 [place] Respitory Rate 18 10/11/2015 [facility] Respitory Rate 18 10/11/2015 [facility] Systolic (mm Hg) 114 10/11/2015 [place] Diastolic (mm Hg) 55 10/11/2015 [place] Temperature Oral (F) 97.5 F 10/11/2015 [place] Heart Rate 48 10/11/2015 [facility] Systolic (mm Hg) 134 10/11/2015 [place] Diastolic (mm Hg) 50 10/11/2015 [place] Respitory Rate 18 10/11/2015 [facility] Heart Rate 59 10/11/2015 [facility] Temperature Oral (F) 97.7 F 10/11/2015 [place] BMI Calculated 22.56 10/06/2015 [facility] Weight 79.716 10/06/2015 [facility] Height 187.96 cm 10/06/2015 [facility] Height 187.96 cm 10/05/2015 [facility] BMI Calculated 23.03 10/05/2015 [facility] Weight 81.364 10/05/2015 [facility] [place] Systolic (mm Hg) 152 06/19/2015 [place] Diastolic (mm Hg) 68 06/19/2015 [place] Heart Rate 66 06/19/2015 [facility] Respitory Rate 20 06/19/2015 [facility] Temperature Oral (F) 98.8 F 06/19/2015 [facility] [place] Respitory Rate 18 06/19/2015 [facility] Heart Rate 73 06/19/2015 [facility] [place] Systolic (mm Hg) 159 06/19/2015 [facility] [place] Diastolic (mm Hg) 64 06/19/2015 [place] Respitory Rate 18 06/19/2015 [facility] [place] Systolic (mm Hg) 153 06/19/2015 [facility] [place] Diastolic (mm Hg) 56 06/19/2015 [place] Heart Rate 72 06/19/2015 [facility] Temperature Oral (F) 97.5 F 06/18/2015 [place] Temperature Oral (F) 97.5 F 06/18/2015 [place] Weight 84.091 06/12/2015 [facility] [place] BMI Calculated 23.8 06/12/2015 [facility] [place] Height 187.96 cm 06/12/2015 [facility] Weight 84.119 06/12/2015 [facility] BMI Calculated 23.81 06/12/2015 [facility] Height 187.96 cm 06/12/2015 [facility] Respitory Rate 20 05/31/2015 [facility] Temperature Oral (F) 97.8 F 05/31/2015 [place] Heart Rate 83 05/31/2015 [facility] [place] Systolic (mm Hg) 160 05/31/2015 [place] Diastolic (mm Hg) 69 05/31/2015 [place] Temperature Oral (F) 98.6 F 05/31/2015 [place] Respitory Rate 20 05/31/2015 [facility] [place] Systolic (mm Hg) 162 05/31/2015 [facility] [place] Diastolic (mm Hg) 64 05/31/2015 [place] Heart Rate 83 05/31/2015 [facility] Respitory Rate 20 05/31/2015 [facility] Temperature Oral (F) 97.7 F 05/31/2015 [place] Heart Rate 92 05/31/2015 [facility] Systolic (mm Hg) 130 05/31/2015 [facility] [place] Diastolic (mm Hg) 55 05/31/2015 [place] [facility] BMI Calculated 24.45 05/17/2015 [facility] Weight 86.364 05/17/2015 [facility] Height 187.96 cm 05/17/2015 [facility] Weight 86.364 05/16/2015 [facility] BMI Calculated 24.45 05/16/2015 [facility] Height 187.96 cm 05/16/2015 [facility] Systolic (mm Hg) 138 04/28/2015 [facility] [place] Diastolic (mm Hg) 46 04/28/2015 [place] Heart Rate 67 04/28/2015 [facility] Temperature Oral (F) 97.9 F 04/28/2015 [place] Respitory Rate 18 04/28/2015 [facility] Heart Rate 69 04/28/2015 [facility] Temperature Oral (F) 97.9 F 04/28/2015 [place] Respitory Rate 20 04/28/2015 [facility] Systolic (mm Hg) 140 04/28/2015 [facility] [place] Diastolic (mm Hg) 50 04/28/2015 [place] Heart Rate 69 04/28/2015 [facility] Respitory Rate 18 04/28/2015 [facility] Temperature Oral (F) 97.8 F 04/28/2015 [place] Systolic (mm Hg) 156 04/28/2015 [facility] [place] Diastolic (mm Hg) 58 04/28/2015 [place] Weight 104.545 04/06/2015 [facility] BMI Calculated 29.59 04/06/2015 [facility] Height 187.96 cm 04/06/2015 [facility] Weight 100 04/06/2015 [facility] Temperature Oral (F) 98.6 F 04/04/2015 [place] Respitory Rate 18 04/04/2015 [facility] Heart Rate 69 04/04/2015 [facility] Systolic (mm Hg) 164 04/04/2015 [place] Diastolic (mm Hg) 58 04/04/2015 [place] Systolic (mm Hg) 180 04/04/2015 [facility] [place] Diastolic (mm Hg) 63 04/04/2015 [place] Temperature Oral (F) 97.9 F 04/04/2015 [place] Heart Rate 70 04/04/2015 [facility] Respitory Rate 17 04/04/2015 [facility] Systolic (mm Hg) 166 04/04/2015 [facility] [place] Diastolic (mm Hg) 58 04/04/2015 [place] Respitory Rate 16 04/04/2015 [facility] Heart Rate 66 04/04/2015 [facility] Temperature Oral (F) 98.5 F 04/04/2015 [place] BMI Calculated 27.48 03/29/2015 [facility] Weight 99.716 03/29/2015 [facility] Height 190.5 cm 03/29/2015 [facility] BMI Calculated 29.43 03/28/2015 [facility] Weight 106.818 03/28/2015 [facility] Height 190.5 cm 03/28/2015 [facility] Encounters Location Location Encounter Encounter Reason Attending ADM OR Stat us Source Details Type Number For Provider Date Date Visit [facility] Inpatient [id number] Britt 03/28 04/04 [place] [facility] Posani [facility] [id number] Mustaq 04/06 04/28 [facility] [place] [facility] [place] [facility] Inpatient [id number] Gio 05/16 05/31 [facility] Dich[place] /2014 [place] [facility] Inpatient [id number] Mustaq 06/13 06/19 [place] [facility]2014 [place] [facility] Outpt Diag [id number] Ruben 07/08 07/09 [facility] [place] [facility] [place] [facility] Inpatient [id number] Mustaq 10/05 10/11 [place] [facility] [place] /2014 [place] [facility] Inpatient [id number] Darvina 09/01 09/05 [place] [facility] Sun[place]ara /2015 [place] [facility] Inpatient [id number] Rehan Sarkar 04/11 04/13 [place] /2017 [place] [facility] Inpatient [id number] Luz 06/02 06/04 [place] [facility] Celso /2017 [facility] Inpatient [id number] Shon 11/11 11/12 Gavino Chavez Jr /2017 [facility] Procedures Procedure Code Date Perfomer Comments Source Amputation<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</sup [id number] 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 [place], and closure of [place], M wound [facility] [id number] fluorosine [facility] laparotomy<sup>2</sup 5 angiogram, [place] > gastric wedge [place], resection [place],M [facility] [id number] 1fluorosine [facility] [place] laparotomy<sup>1</sup 5 angiogram, [place] d > gastric wedge resection Partial resection of [id number] with laparoscop ic [facility] colon<sup>3</sup> 5 cholecystectomy, S ugar wet resection of [place],[facility] the stomach [place],M [facility] Partial resection of [id number] 2with MH [place] colon<sup>2</sup> 5 laparoscopic [place] cholecystectomy, wet resection of the stomach Cholecystectomy [id number] [facility] [place],M [facility] [id number] [facility] [place],M [facility] Assessment and Plan Assessment and Plan Date Source Extracted from:Title: [facility] Hospitalist Service Discharge Summary 11/12/2018 [facility] Author: Shon Sanders MD Date: 11/12/18 [facility] Hospitalist Service Discharge Summary PATIENT NAME:TOMER CLAYTON ATTENDING: SHON CHAVEZ JR, MD ADMISSION DATE: 11/10/2018 23:07 DISCHARGE DATE: 11/12/2018 15:23 DISCHARGE DIAGNOSIS: Acute kidney failure, unspecified (N17.9) Syncope and collapse (R55) Orthostatic hypotension (I95.1) CONSULTING PHYSICIANS/SERVICES: None DISCHARGE CONDITION: Fair HISTORY OF PRESENT ILLNESS: Please see admission history and physical for presenting det ails HOSPITAL COURSE: The patient presented to the hospital wi th dizziness, generalized weakness, and abdominal pain. The patient was found to have an acute kidney injury and was felt to be volume depeleted. He was given i ntravenous fluids and his kidney functio n improved significantly. He has chronic alternating diarrhea and constipation and has been under the care of a physician who has been managing this. This is a result of extensive bowel resection and is a chronic condition. He was felt to be at his prior baseline after volume resuscitation. His blood pressure was somewhat elevated at time of discharge, [facility] he has also had extensive workup in r egards to this as well and is under appropriate outpatient management. The patient was felt to be in a stable condition for discharge. I saw and examined the svetlana beckwith on day of discharge. The patient was discharged in fair condition, with appropriate followup and appropriate medications. DISCHARGE INSTRUCTIONS: Please notify your physician if any of the following occur: Bleeding, Fever, Nausea, Pain, Shortness of breath, Signs of infection, Swelling Activity: Activity as tolerated, No strenuous activity DISCHARGE DIET: Home Diet: Diet Low Sodium (2gm) DISCHARGE MEDICATIONS: PLEASE SEE HMR FO R DETAILS PERTAINING TO DISCHARGE MEDICATIONS DISCHARGE FOLLOWUP: Follow Up With PCP, Call for appointment, within: 1 Deyvi lewis, reason: Primary Care Physician follow up post hospitalization A total of 34 minutes was spent planning discharge which included bedside counseling. Extracted from:Title: Clinical Document Author: Zarina Suarez MD Date: 11/11/18 [facility] Hospitalist Brief Progress Note Patient seen/examined at bedside. Admitt ed for dizziness, weakness, hypotension, NAZANIN likely related to dehydration. Continue IVFs. Cr improving. Hold xarelto until Cr improves. Zarina Suarez MD [facility] Hospitalist Extracted from:Title: History and Physical Author: Hua Grissom MD Date: 11/11/18 NAZANIN (acute kidney injury)(N17.9) >possibly pre-renalazotemia,worsened fro m baseline. No source for GI losses. No recent diuretic tx or diamox during travel. Ordered: Admit/Condition, 11/11/18 2:22:00 PREDATORY HUNTER, S tatus: Inpatient, Acute, Expected LOS: 2 Midnights, Shon Sanders MD, Javier WALL Review/Approve Yes, Isolation: No Isolation/Standard Precautions, Orthostati c hypotension | NAZANIN (acute kidney injury) | Near syncope Near syncope(R55) >recurrent, similar to previous episodes . Currently normotensive. Continue to monitor on telemetry. Will hold further w/u for cardiovascular source given significant prior w/u. Will trend cardizymes. Ordered: Admit/Condition, 11/11/18 2:22:00 PREDATORY HUNTER, S tatus: Inpatient, Acute, Expected LOS: 2 Midnights, Shon Sanders MD, Javier WALL Review/Approve Yes, Isolation: No Isolation/Standard Precautions, Orthostati c hypotension | NAZANIN (acute kidney injury) | Near syncope Orthostatic hypotension(I95.1) >again this is a chronic problem thought to be related to chronic anemia and is under evaluation as anoutpt. Ordered: Admit/Condition, 11/11/18 2:22:00 PREDATORY HUNTER, S tatus: Inpatient, Acute, Expected LOS: 2 Midnights, Shon Sanders MD, Admit Review/Approve Yes, Isolation: No Isolation/Standard Precautions, Orthostati c hypotension | NAZANIN (acute kidney injury) | Near syncope AFIB >Therapeutic on xarelto, continue current meds. Currently ra te controlled. attained with xarelto 2 midnights inpatient services, telemetry. Extracted from:Title: History and Physical 06/04/2018 LISSETH Barger Author: Cassandra Bolaños MD Date: 06/02/18 Partial small bowel obstruction Etiology likely from history of previous abdominal surgeries including right hemicolectomy and cholecystectomy in 2014 Admit inpatient IV fluids IV medication for pain control General surgery consult Antiemetics as needed Ordered: Admit/Condition, 06/02/18 8:09:00 CDT, S tatus: Inpatient, Acute, Expected LOS: 2 Midnights, Cassandra Bolaños MD, Admit Review/Approve Yes, Isolation: No Isolation/Standard Precautions Intra-abdominalfluid collection 5.7 x 3.8 x 10.3 cmin the anterior pelvis Appears to be present on previous CT abd omen pelvis fromMay, so less likely acute abscess/infection. Also no leukocytosis or fever. General surgery consult will hold off on antibiotics for nowuntil seen by surgery Essential hypertension We will monitor off p.o. antihypertensives for now Neuropathy Stable, hold p.o. medications Atrial fibrillation, paroxysmal Currently rate controlled Lovenox, SCDs Home whencleared by surgery and tolerating p.o. Cassandra Bolaños MD Internal Medicine Extracted from:Title: Progress Note 04/13/2018 LISSETH Barger Author: Alaina Ryan DO Date: 04/13/18 GENERAL SURGERY PROGRESS NOTE SUBJECTIVE: Patient very upset regarding difficulty with Kwong placement overnight. The Kwong was unable to be placed successfully for his CT cystography. He also now states that his previous surgeon, Dr.Schrande osei in [place], is aware of the right lower quadrant fluid collection following his hydrocele surgery in October 2017 and told him to continue to observe it at that time. She states that he had a sm all bowel movement yesterday following a Dulcolax suppository. He is hungry and would like to eat. OBJECTIVE: Vital Signs: Temperature 98.4, blood pre ssure 170/64, pulse 20, respiratory rate 18, SPO2 97% on room air Intake and Output: Oral intake 250 mL, urine output 900 mL, stool 1 PHYSICAL EXAM: General: No apparent distress Respiratory: Respirations are non-labored Cardiac: Regular rate and rhythm Abdomen: Soft, nondistended, mildly tend er separation along the right lower quadrant. No rebound tenderness, guarding, or peritoneal signs. LABS: Sodium 142, potassium 3.4, chloride 109, CO2 25, BUN 23, creatinine 1.01, glucose 87 LFTs within normal limits White blood cell count 3.4, hemoglobin 8.1, hematocrit 23.5, platelet 194 IMAGING: No new imaging review ASSESSMENT: The patient is a 77-year-old male with m ultiple medical comorbidities who presents with a 3-year history of dizziness, generalized weakness, persistent nausea, p.o. intolerance, altered bowel habits, he artburn, and abdominal pain. He is curr ently undergoing a significant workup for his presyncopal episodes. He was noted to have a thin walled fluid collection just adjacent to the bladder within the r ight pelvis on CT imaging. It is unclea r whether this fluid collection is a bladder diverticulum or separate from the bladder. There does not appear to be any findings to suggest an abscess. Patient now states that his surgeon in [place] t hat removed his right-sided hydrocele back in October is aware of this right pelvic fluid collection and told him at that time to observe it Recommendations: Urology has been consulted. CT cystogra phy has been ordered to further evaluate the right pelvic mass to determine if this is a bladder diverticulum versus seroma from previous inguinal hernia repair and excision of hydrocele surgery. I have also recommended that the patient contact and follow-up with his surgeon in [place] who reportedly is aware of this fluid collection. No other acute abnormalities noted withi n the GI tract. May resume a regular diet. Recommend continuing a bowel regimen Syncopal workup per primary team and neurology. We will follow peripherally. Please do not hesitate to call with any questions or concerns. 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 His postoperative course at that time was complicated by a perforated gastric ulcer requiring reoperation and resection. He was then diagnosed with lung cance r in August 2017 and has been undergoin g chemotherapy as well as radiation. Notably the patient also had a laparoscopic right inguinal hernia repair and removal of hydrocele done in [place] in October 2017. He now presents to [facility] secondary to a syncopal episode. The patient complains of a long-standing history of dizziness, generalized weakness, persistent nausea, heartburn, abdominal pain, p.o. intolerance and ir regular bowel habits alternating from diarrhea and constipation. He and his state that they have had multiple hospital visits between [place] and [place] over the last 3 years due to the above-s tated symptoms. They are very frustrated as no one can identify what is the cause of his symptoms. They also state that is been very difficult to get any follow -up appointments with his physicians. Si nce admission to [facility], he is undergone a significant workup including CT of the abdomen pelvis, CT head, brain MRI, and neck MRA. He is al so scheduled to undergo carotid Doppler. He was noted to have a 8.1 x 5.2 x 6.5 cm fluid collection in the right pelvis. General surgery was consulted for further evaluation and management. Notably, th e patient underwent laparoscopic inguina l hernia repair, with Dr. Lara in February 2017 in [place]. He apparently had significant scrotal edema following the surgery which required recurrent inguinal her raquel repair with circumcision in removal of hydrocele, October [address] Lara and Jack in [place]. PAST MEDICAL HISTORY: Atrial fibrillation Hypercholesterolemia Hypertension Lung cancer PAST SURGICAL HISTORY: Laparoscopic cholecystectomy converted t o exploratory laparotomy with en bloc resection involving extended right hemicolectomy and wedge resection of the stomach due to a fistula between the gallbladder and colon, 03/30/2015 Exploratory laparotomy with washout of a bdomen, wedge resection of gastric fundus, and drain placement, 04/06/2015 Exploratory laparotomy with abdominal wa azucenaut, Cory patch repair of nonhealing gastric staple line, 04/08/2015 Right great toe partial amputation, 05/30/2015 Laparoscopic inguinal hernia repair, wit alan Lara in February 2017 in [place]. He apparently had significant scrotal edema following the surgery which required recurrent inguinal hernia repair with circ umcision in removal of hydrocele, [facility] [address] Lara and Jack in [place] ALLERGIES: No known drug allergies SOCIAL HISTORY: The patient is a former smoker. He appa rently has a significant drinking history but has since quit. FAMILY HISTORY: Significant for cardiovascular disease and leukemia CURRENT MEDICATIONS: See medication reconciliation form REVIEW OF SYMPTOMS: Constitutional: No fever, chills, weigh t loss/gain, positive for fatigue and malaise Eye: No double vision, blurred vision, or reddness Ear/Nose/Mouth/Throat: No otalgia, nasa l congestion, rhinorrhea, dysphagia, or odynophagia Respiratory: No shortness of breath, cough, or wheezing Cardiovascular: No chest pain, palpitat ions, peripheral edema, or dyspnea on exertion Gastrointestinal: Positive for nausea, v omiting, abdominal pain, diarrhea, constipation, no melena Genitourinary: Positive for dysuria, tiera quency, urgency, incontinence or hematuria Hematology/Lymphatics: No bruising tendency or bleeding ten dency Endocrine: No cold/heat intolerance or polydipsia Immunologic: No recurrent fevers or recurrent infections. Musculoskeletal: No arthralgia, myalgia, or stiffness Integumentary: No rash, jaundic, or pruritus Neurologic: No headache, seizure, tin gling, or numbness. Positive for dizziness Psychiatric: No anxiety or depression PHYSICAL EXAMINATION: VITAL SIGNS: Temperature 98.0, blood pre ssure 116/60, pulse 20, respiratory rate 20, SPO2 99% room air BMI 25.8 GENERAL: No acute distress. Alert and oriented 3. Appears stated age. HEENT: Normocephalic, Normal hearing, Ex traocular muscles intact, normal conjunctiva, oral mucosa is moist. NECK: Supple, no lymphadenopathy RESPIRATORY: Respirations non-labored CARDIOVASCULAR: Regular rate and rhythm ABDOMEN: Soft, nondistended, well-healed right subcostal incision and laparoscopic incisions. Mildly tender to palpation along the right lower abdomen. EXTREMITIES: Well perfused. No clubbing, cyanosis, or edema . No tenderness Integumentary: Warm, Dry, No rash. Neurologic: Alert, Oriented, Normal sen abdi, Normal motor function, Cranial Nerves II-XII are grossly intact. Psychiatric: Cooperative, Appropriate mood and affect. LABORATORY DATA: Sodium 137, potassium 4, chloride 103, B UN 27, creatinine down to 1.21 from 1.58, glucose 108 LFTs within normal limits White blood cell count 4.4, hemoglobin 9, hematocrit 26, vi telet 198 Urinalysis negative IMAGING: CT of the abdomen pelvis 04/12/2018 Impression: 1. Right hemicolectomy. Grossly patent a nastomosis. The small bowel loops show generalized fluid levels and there may be adhesions. But no frankly dilated small bowel loops to indicate small bowel obstr uction at this time. Small bowel series may be more in follo w-up. 2. Right renal pelviectasis. This is a s table and most likely developmental configuration. 3. Extensive atherosclerotic disease wit h significant stenosis suggested in the visceral and renal branches. CTA may be helpful. 4. New fluid collection in the right zenaida e of the pelvis. Seroma or abscess. Less likely bladder diverticulum. Scans with IV contrast may be helpful regarding the latter. Brain CT 04/11/2018 IMPRESSION: 1. No acute intracranial abnormalities. 2. CT is insensitive for early evaluatio n of acute stroke. If there is clinical concern for acute ischemia, MRI is recommended. Brain MRI 04/11/2018 Impression: 1. Atheromatous narrowing in the left ca vernous carotid artery and left A1 segment. No other significant lesion. Neck MRI 04/11/2018 Impression: 1. Bilateral atheromatous findings notably proximal left ICA . Carotid ultrasound pending ASSESSMENT: The patient is a 77-year-old male with m ultiple medical comorbidities who presents with a 3-year history of dizziness, generalized weakness, persistent nausea, p.o. intolerance, altered bowel habits, he artburn, and abdominal pain. He is curr ently undergoing a significant workup for his presyncopal episodes. He was noted to have a thin walled fluid collection just adjacent to the bladder within the r ight pelvis on CT imaging. It is unclea r whether this fluid collection is a bladder diverticulum or separate from the bladder. There does not appear to be any findings to suggest an abscess. PLAN: Recommend consulting urology for evaluat ion of right pelvic fluid collection. This may be a bladder diverticulum versus seroma following previous laparoscopic hernia repair and hydrocele excision performed in [place]. He also has a significant amount of stoo l burden within the colon and rectum noted on CT imaging. I have ordered a suppository. Recommend placing the patient on a bowel regimen to include lactulose in addition to his home dose of Linzess Continue twice daily PPI and Carafate Will begin a probiotic. We will continue to closely follow along . Please do not hesitate to call with any questions or concerns Thank you for the consultation. Extracted from:Title: Clinical Document Author: Rehan Sarkar MD Date: 04/11/18 [facility] Hospitalist History and Physicial CC: Syncope HPI: 77 y.o. man h/o A-fib, HTN, TIFFANIE, h/o mul tiple abdominal surgery in past, lung cancer (just completed a course of chemo 2 months ago), is now admitted for complaints of syncope, weakness, abdominal pain. The patient has had similar symptoms f or 3 years, but evidently weakness has been much worse x 1 week. The patient denies poor oral intake, but appears dry on exam and he complains of "cotton mo uth". The patient reports chronic const ipation. reports "shaking" associated with some of these episodes. The patient was last seen in [facility] in 2016, and then transferred his care to [place] because he was frustrated at lack of progress. Now patient is frustrated with lack of progress at [place] and presented to [facility] ED. PMH: - as above - h/o perforated gastric ulcer and intra-abdominal abcess an d fistula - hyperlipidemia - h/o neuropathy, h/o skin cancer Syncope and collapse (R55) Allergies: NKFA, NKDA Family History: Mother: Leukemia Father: Cardiac arrest Social History: Employment/School Details: Work/School description: retired. Sexual Details: Sexually active: No. Alcohol Details: Past, Type Beer, Wine. Details: Past, Type Beer, Wine, Liquor. Frequency: Daily. Last use: Pt states quit 6 weeks ago, but drank 6-8 beers daily, 2-3 glasses of wine daily, 2-3 shots of bourbon daily since he was a teenager .. Started age 6 Years. Alcohol use i nterferes with work or home: No. Drinks more than intended: No. Others hurt by drinking: No. Ready to change: No. Household alcohol concerns: No. Tobacco Details: Use: Former smoker. Tobacco sm emilio exposure: None. Did the Patient Smoke Cigarettes Anytime During the Last 365 Days? No. Cessation Counseling Provided? Yes. Details: Use: Former smoker. Tobacco sm emilio exposure: None. Did the Patient Smoke Cigarettes Anytime During the Last 365 Days? No. Cessation Counseling Provided? No. Details: Use: Former smoker. Type: Ciga rettes. Previous treatment: None. Ready to change: No. Household tobacco concerns: No. Tobacco smoke exposure: None. Other Tobacco Frequency smoked 30 years ago. Did the Patient Smoke Cigarettes A nytime During the Last 365 Days? No. Cessation Counseling Provided? No. Substance Abuse Details: Use: None. ROS: Constitutional: no fever/chills, weight loss, fatigue Eyes: no changes to vision HEENT: no change to hearing Cardiovascular: no chest pain, palpitations Respiratory: no dyspnea, cough Gastrointestinal: no nausea, vomiting, diarrhea, pain Genitourinary: no dysuria, hematuria Skin: no rash Neurologic: no tremor, seizure, focal deficit Hematologic: no bleeding Medications: Home Medications (13) Active acetaminophen-hydrocodone 325 mg-7.5 mg oral tablet 1 tab, P RN, PO, Q6H azelastine nasal 0.1% (137 mcg/inh) spray 1 spray, NASAL, BI D Cardizem CD 120 mg/24 hours oral capsule , extended release 120 mg = 1 cap, PO, Daily flecainide 150 mg oral tablet 75 mg = 0.5 tab, PO, Q12H fludrocortisone 0.1 mg oral tablet 0.1 mg = 1 tab, PO, QAM gabapentin 600 mg oral tablet 1,200 mg = 2 tab, PO, Q12H lisinopril 10 mg oral tablet 10 mg = 1 tab, PO, BID oxybutynin 5 mg oral tablet 5 mg = 1 tab, PO, Bedtime Prilosec 40 mg oral delayed release capsule 40 mg = 1 cap, P O, BID temazepam 15 mg oral capsule 15 mg = 1 cap, PRN, PO, Bedtime tramadol 50 mg oral tablet 50 mg = 1 tab, PRN, PO, Q6H trazodone 50 mg oral tablet 50 mg = 1 tab, PO, Bedtime Xarelto 15 mg oral tablet 15 mg = 1 tab, PO, Daily Medications (3) Active Scheduled Meds: None Unscheduled Meds: None PRN Meds (1): 04/11/18 sodium chloride (Saline Flush 0.9%) 10 mL IVP PRN One Time Meds (1): 04/11/18 (Completed) Sodium Chloride 0. 9% IV (Sodium Chloride 0.9% (Bolus) IV) 500 mL IV ONCE Continuous Infusions (1): 04/11/18 Sodium Chloride 0.9% IV 1,000 mL 1,000 mL 100 ml/hr [facility] A/G Ratio: 0.9 (04/11/18) AGAP: 12.9 mEq/L (04/11/18) Albumin Lvl: 3.2 g/dL Low (04/11/18) Alk Phos: 82 unit/L (04/11/18) ALT: 13 unit/L (04/11/18) AST: 15 unit/L (04/11/18) B/C Ratio: 20 (04/11/18) Basophils: 0.2 % (04/11/18) Basophils #: 0 K/CMM (04/11/18) Bili Total: 0.7 mg/dL (04/11/18) BUN: 31 mg/dL High (04/11/18) Calcium Lvl: 8.1 mg/dL Low (04/11/18) Chloride Lvl: 97 mEq/L (04/11/18) CK MB: 0.6 ng/mL (04/11/18) CK MB Index: 0.9 (04/11/18) CO2: 27 mEq/L (04/11/18) Creatinine Lvl: 1.58 mg/dL High (04/11/18) eGFR: 42 mL/min/1.73m2 (04/11/18) Eosinophils: 6.5 % High (04/11/18) Eosinophils #: 0.4 K/CMM (04/11/18) Globulin: 3.4 g/dL (04/11/18) Glucose Lvl: 98 mg/dL (04/11/18) Hct: 25.4 % Low (04/11/18) Hgb: 8.7 g/dL Low (04/11/18) INR: 1.03 (04/11/18) Lymphocytes: 10.8 % Low (04/11/18) Lymphocytes #: 0.7 K/CMM Low (04/11/18) MCH: 34.3 pg High (04/11/18) MCHC: 34.4 g/dL (04/11/18) MCV: 99.9 fL High (04/11/18) Monocytes: 10.1 % (04/11/18) Monocytes #: 0.7 K/CMM (04/11/18) MPV: 7.1 fL Low (04/11/18) Platelet: 202 K/CMM (04/11/18) Potassium Lvl: 3.9 mEq/L (04/11/18) PT: 13.5 seconds (04/11/18) PTT: 33.5 seconds (04/11/18) RBC: 2.55 M/CMM Low (04/11/18) RDW: 17.8 % High (04/11/18) Segs: 72.4 % (04/11/18) Segs-Bands #: 4.8 K/CMM (04/11/18) Sodium Lvl: 133 mEq/L Low (04/11/18) Total CK: 70 unit/L (04/11/18) Total Protein: 6.6 g/dL (04/11/18) Troponin-I: <0.02 (04/11/18) UA Bili: NEG (04/11/18) UA Blood: NEG (04/11/18) UA Color: cLight Yellow (04/11/18) UA Glucose: NEG (04/11/18) UA Hyal Cast: 12 /LPF High (04/11/18) UA Ketones: NEG (04/11/18) UA Leuk Est: NEG (04/11/18) UA Mucus: cFew (04/11/18) UA Nitrite: NEG (04/11/18) UA pH: 5 (04/11/18) UA Protein: NEG (04/11/18) UA RBC: 1 /HPF (04/11/18) UA Spec Grav: 1.009 (04/11/18) UA Sq Epi: None Seen (04/11/18) UA Turbidity: Clear (04/11/18) UA Urobilinogen: <=1.0 (04/11/18) WBC: 6.6 K/CMM (04/11/18) Physical Exam: Vitals and Temp: Vitals Tmp(F) Pulse BP RR SpO2 FIO2 04/11 15:50 ---- 53 140/47 17 100 --- 04/11 14:50 ---- 55 148/48 18 99 --- 04/11 13:42 97.7 58 99/59 18 98 --- 24 Hr Tmax: 97.7F (36.50c) at 04/11 13:4 2 Vital Signs are the last 5 in the past 48 hours. Gen: alert, orient x 3, NAD HEENT: PERRL, mucus membranes dry Neck: no bruit CV: RRR, no murmur Lung: Clear to ausculatation Abd: soft, NTND, no guard/rebound Ext: no edema Skin: no rash Pulses: 2+ radial and DP Neuro: no gross focal deficits, no tremor Psychiatric: normal affect Assessment and Plan: 1. Syncope - likely due to volume depletion and pos sible medication effect, +/- adrenal insufficiency - hypotension has improved with IVF in E D, home meds were notable for diltiazem, flecainaide, lisinopril, florinef - will trial IVF, low dose stress steroids, hold diltiazem a nd lisinopril - telemetry, enzymes, echo - MRI/MRA 2. ?Seizure like activity per - patient denies seizures/shaking - pending results of CT head ... will consider MRI/MRA 3. Hypotension - hold diltiazem and lisinopril - patient was previously on florinef ... now with hyponatremia and serum eosinophilia ... check for adrenal insufficiency - start on trial of stress steroids 4. Abdominal pain - CT abd/pelvis: 1. Right hemicolectomy. Grossly patent anastomosis. The small bowel loops show generalized fluid levels and there may be adhesions. But no frankly dilated small bowel loops to indicate small bowel obstruction at this time. Sm all bowel series may be more in follow-up. 2. Right renal pelviectasis. This is a s table and most likely developmental configuration. 3. Extensive atherosclerotic disease wit h significant stenosis suggested in the visceral and renal branches. CTA may be helpful. 4. New fluid collection in the right zenaida e of the pelvis. Seroma or abscess. Less likely bladder diverticulum. Scans with IV contrast may be helpful regarding the latter. - h/o prior bowel perforation and abcess /fistula ... will plan CT with contrast once NAZANIN resolved - will consult surgery (Dr Wood) 5. Lung Cancer - patient reported completed chemo 2 mon ths ago ... was due to oncology followup in 1-2 weeks - CXR: Hyperinflated lungs with suspicio n of pulmonary nodules in the right lung, which may be further assessed by CT. This may be performed on a nonemergent basis depending on clinical indication. 6. A-fib - normally on diltiazem, flecainide - diltiazem on hold for hypotension 7. TIFFANIE - CPAP 8. NAZANIN - baseline creatinine 0.9 - trial IVF 9. DVT/GI prophylaxis - SCD 10. Full code Extracted from:Title: Clinical Document 09/05/2016 [facility] Author: Nikolay Houston MD Date: 09/05/16 Discharge Summary Name: Tomer Clayton Record Number: [id number] Admission Date: 09/01/2016 Discharge Date: 09/05/2016 Diagnoses: 1. Syncope - possibly 2/2 hypotension 2. Atrial fibrillation with RVR 3. Chronic abdominal pain 4. TIFFANIE 5. HTN 6. HLD Hospital course: 76 yo male presented with episode of syn cope. He was admitted and underwent echo and stress test that was WNL. He had carotid doppler and CTA neck which showed 70% stenosis bilaterally. MRI/MRA brain/ne ck were WNL. He went into atrial fibrill ation with RVR and required diltiazem drip. He was weaned off this and stabilized. He complained of abdominal pain that had been going on chronically. CT A/P did not reveal any acute findings. He was cleared for discharge by consultants. Discharge condition: stable Discharge therapy: Medications - per med rec Diet - heart healthy Activity - as tolerated Follow up - PCP, cardiology Extracted from:Title: Clinical Document Author: Nikolay Houston MD Date: 09/01/16 IM HISTORY AND PHYSICAL CC: syncope/pulse-lessness HPI: 76 yo male with history of TIFFANIE, atrial f ibrillation, HTN, several abdominal surgeries presenting for evaluation of syncope/pulse-lessness per patient's . [place] was [place] house sitting ou tside on his chair and appeared to be sl eeping and was breathing but was unarousable by the . She asked a neighbor for assistance and he found the patient did not have a pulse and so he started CPR. He did one round of chest compressions which did not do anything. He then gave 2 rescue breaths after which the patient came to. He had his vitals checked and was found to have a BP of 144/52 with a he art rate of 51. Patient has recently had his dose of Nifedipine doubled and took this increased dose for the first time yesterday. He otherwise is complaining of a chronic RLQ pain that has been ongoing for few days now. He is having some dif ficulty with BMs and has had decreased PO intake. Denies any fever or chills. PMH HTN Atrial fibrillation TIFFANIE neuropathy Anemia HLD PSH cholecystectomy intra-abdominal abscess s/p I&D stomac surgery for perforated ulcer SH former smoker; no ETOH, no drugs FH non contributory MEDS reviewed with patient ALL - NKDA ROS 14 point ROS negative other than mentioned in HPI PE Vitals Tmp(F) Pulse BP RR SpO2 FIO2 09/01 14:45 ---- 62 173/48 16 100 --- 09/01 13:45 ---- 52 154/59 13 99 --- 09/01 12:45 ---- 58 162/51 18 100 --- 09/01 11:59 97.8 58 176/53 16 99 --- 24 Hr Tmax: 97.8F (36.56c) at 09/01 11:5 9 Vital Signs are the last 5 in the past 48 hours. GEN - awake, alert, NAD HEENT - EOMI, MMM, OP clear, PERRL NECK - supple, no LAD CV - RRR CHEST - LCTAB ABD - soft, NTND, BS+ EXT - no LE edema SKIN - no rashe/lesions NEURO - CN grossly intact, no focal deficits noted DATA BMP WNL CE x 1 negative WBC 11.2 Hgb 12.3 A/P Syncope - reportedly was pulse less and required compressions - currently BP WNL but HR slightly bradycardic - ?2/2 recent increase in Nifedipine vs TIFFANIE - will get echo, monitor on tele, check orthostatic VS - will consult cardiology for input Leukocytosis - possibly reactive; will check UA/UCX Abdominal pain - CT A/P done; results pending - if no acute issues, can f/u as outpatient Afib - continue home meds; Xarelto on ho ld for now as outpatient so will continue to hold HTN - continue home meds but lower dose of Nifedipine HLD - continue home meds Plan of Care No Data Provided for This Section Social History Social History Date Source Social History TypeResponse 11/11/2018 Kailey carter Substance Abuse Use: None. Sexual Sexually active: No. Employment/School Work/School description: retired. Alcohol Never Smoking Status Former smoker; Type: Cigarettes; Previou s treatment: None; Ready to change: No; Concerns about tobacco use in household: No; Exposure to Tobacco Smoke None; Cigarette Smoking Last 365 Days No; Reg Smoki ng Cessation Counseling No; Other Tobacco Frequency smoked 3 0 years ago; entered on: 11/10/18 Social History TypeResponse 11/11/2018 [place] Substance Abuse Use: None. Sexual Sexually active: No. Employment/School Work/School description: retired. Alcohol Never Smoking Status Former smoker; Type: Cigarettes; Previou s treatment: None; Ready to change: No; Concerns about tobacco use in household: No; Exposure to Tobacco Smoke None; Cigarette Smoking Last 365 Days No; Reg Smoki ng Cessation Counseling No; Other Tobacco Frequency smoked 3 0 years ago; entered on: 11/10/18 Social History TypeResponse 05/17/2015 CAMERON Barger Substance Abuse Use: None. Employment/School Work/School description: retired. Alcohol Past, Type Beer, Wine, Liquor. Frequenc y: Daily. Last use: Pt states quit 6 weeks ago, but drank 6-8 beers daily, 2-3 glasses of wine daily, 2-3 shots of bourbon daily since he was a teenager.. Start ed age 6 Years. Alcohol use interferes with work or home: No. Drinks more than intended: No. Others hurt by drinking: No. Ready to change: No. Household alcohol concerns: No. Smoking Status Never smoker; Type: Cigarettes; Previous treatment: None; Ready to change: No; Concerns about tobacco use in household: No; Exposure to Tobacco Smoke None; Cigarette Smoking Last 365 Days No; Reg Smoking Cessation Counseling No Family History No Data Provided for This Section Advance Directives No Data Provided for This Section Functional Status No Data Provided for This Section
--- OUTSIDE RECORDS SUMMARY | 2020-04-26 23:54 | XMS REPORT | Continuity of Care Document ---
:1940 Author Organization [facility] t Address [address] [place] [address] [address] [place] [address] Care Team Providers Name Role Phone Ahmet Tran Primary Care Physician Atilio Tijerina Jr Attending Clinician Celso Attending Clinician Joseluis Sarkar Attending Clinician Cordell Attending Clinician Rogelio Carey Attending Clinician Charly Dillon Attending Clinician Ken Perry Attending Clinician Aubree Attending Clinician Atilio Tijerina Jr Admitting Clinician Celso Admitting Clinician Joseluis Sarkar Admitting Clinician Cordell Admitting Clinician Rogelio Carey Admitting Clinician Ken Perry Admitting Clinician Aubree Admitting Clinician Problems Condition Condition Condition Status Onset Resolution Last Treating Co mments Source Name Details Category Date Date Treatment Clinician Date Chronic Chronic Problem Active [place] pain Pain 408 da 00:00: Medical 00 Group Pruritus Pruritus Problem Active [place] of skin of Skin 4 da 00:00: Medical 00 Group Peripheral Peripheral Problem Active M [facility] vascular Vascular 2-21 da disease Disease 00:00: Medical 00 Group Venous Venous Problem Active [place] stasis Stasis 2 da ulcer of Ulcer of 00:00: Medica l leg Leg 00 Group Irritable Irritable Problem Active [place] bowel Bowel 9 da syndrome Syndrome 00:00: Medica l with with 00 Group diarrhea Diarrhea Stasis Stasis Problem Active [place] ulcer Ulcer 9 da 00:00: Medical 00 Group Foreign Foreign Problem Active [place] body - Body - 2 da finger Finger 00:00: Medical 00 Group 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 00:00: Medi faye 00 Group 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 Hyperlipid 124 da emia emia 00:00: Medical 00 Group Anemia Anemia Problem Active [place] 1-24 da 00:00: Medical 00 Group Neuropathy Neuropathy Problem Active M [facility] 1-24 da 00:00: Medical 00 Group Benign Benign Problem Active [place] essential Essential 1-24 da hypertensi Hypertensi 00:00: Me dical on on Group Atrial Atrial Problem Active [place] fibrillati Fibrillati 1-24 da on on 00:00: Medical 00 Group Gastropare Gastropare Problem Active [facility] [place] sis sis 124 da syndrome Syndrome 00:00: Medica l 00 Group Diverticul Diverticul Problem Active M [place] itis itis 1-24 da 00:00: Medical 00 Group Benign Benign Problem Active [place] prostatic Prostatic 1-24 da hypertroph Hypertroph 00:00: Me dical y without y without 00 Grou p outflow Outflow obstructio Obstructio n n Near Near Problem Active [place] syncope Syncope 124 da 00:00: Medical 00 Group SYNCOPE/LO Diagnosis Active 2017-112018-11-11 Memoria W BP 01-11 01:16:00 l 00:00: [place] SYNCOPE/LO 00 W BP Active 11/10/2018 [place] ORTHOSTATI Diagnosis Active 2017-112018-11-12 Memoria C 01-11 15:46:00 l HYPOTENSIO 00:00: Saúl n N, NAZANIN, ORTHOSTATI 00 NEAR SYNCO C HYPOTENSIO N, NAZANIN, NEAR SYNCO Active 11/10/2018 [place] SBO Diagnosis Active 2018-06-12 Mem oria 7- 21:48:00 l SBO 00:00: [place] 00 Active 06/02/2018 [place] PASSED Diagnosis Active 2015-112016-09-01 Mem oria OUT/STOPPE 0 13:43:00 l D PASSED 00:00: [place] BREATHING OUT/STOPPE 00 D BREATHING Active 09/01/2016 [place] SYNCOPE Diagnosis Active 2015-112016-09-14 Me moria 0- 17:00:00 l SYNCOPE 00:00: [place] 00 Active 09/01/2016 [place] ABD PAIN Diagnosis Active 2014-112015-10-06 M emoria 1-18 13:20:00 l ABD PAIN 00:00: Saú[place] n 00 Active 10/05/2015 [place] WEAKNESS Diagnosis Active 2016-05-10 M emoria 06-11 06:43:00 l WEAKNESS 00:00: Saú[place] n 00 Active 06/11/2015 [place] WEAKNESS X Diagnosis Active 2016-05-10 Memoria 06-11 06:43:00 l WEAKNESS 00:00: Saú[place] n X 00 Active 06/11/2015 [place] SYNCOPE Diagnosis Active 2015-06-06 Me moria AND 05-16 22:03:00 l COLLAPSE, SYNCOPE 12:00: Herm allison PERITONEAL AND 00 ABSCESS COLLAPSE, PERITONEAL ABSCESS Active 05/16/2015 [place] 707.9 - Diagnosis Active 2015-06-24 Me moria CHRONIC 05-11 16:06:00 l SKIN UL 707.9 - 00:01: Saúl n CHRONIC 00 SKIN UL Active 05/11/2015 [facility] ABD PAIN Diagnosis Active 2016-05-11 M emoria UNSPCF,ESTUARDO 04-06 11:07:00 l KOCYTOSIS ABD PAIN 00:00: Her leonardo NOS,SEPTIC UNSPCF,ESTUARDO 00 E KOCYTOSIS NOS,SEPTIC E Active 04/06/2015 [place] LOWER Diagnosis Active 2015-04-06 Mem oria ABDOMINAL 04-06 04:31:00 l PAIN LOWER 00:00: [place] ABDOMINAL 00 PAIN Active 04/06/2015 [place] ABDMNAL Diagnosis Active 2015-04-09 Me moria PAIN 04-06 13:42:00 l UNSPCF, ABDMNAL 00:00: Saúl n LEUKOCYTOS PAIN 00 IS NOS, S UNSPCF, LEUKOCYTOS IS NOS, S Active 04/06/2015 [place] ABDOMINAL Diagnosis Active 2015-04-08 Memoria PAIN 03-28 22:12:00 l 00:00: [place] ABDOMINAL 00 PAIN Active 03/28/2015 [place] Mark Mark Disease Active [place] cell cell Methodi carcinoma carcinoma st Lung Lung Disease Active [place] disease disease Methodi st Paroxysmal Problem 2018-12-22 M emoria atrial 14:06:11 l fibrillati Saúl n on Paroxysmal atrial fibrillati on 12/22/2018 [place] Hypertensi Problem 2018-12-22 M emoria ve urgency 14:06:11 l [place] Hypertensi ve urgency 12/22/2018 [place] Enlarged Problem 2018-12-22 Mem oria prostate 14:06:11 l without Enlarged Ruby nn lower prostate urinary without tract lower symptoms urinary tract symptoms 12/22/2018 [place] 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:06:11 l sterolemia Pure Saúl n , hyperchole unspecifie sterolemia d , unspecifie d 12/22/2018 [place] Personal Problem 2018-12-22 Mem oria history of 14:06:11 l antineopla Personal He rmann stic history of chemothera antineopla py stic chemothera py 12/22/2018 [place] Orthostati Problem 2019-06-01 M emoria c 12:19:20 l hypotensio Saúl n n Orthostati c hypotensio n 06/01/2019 [place] Dehydratio Problem 2019-06-01 M emoria n 12:19:20 l [place] Dehydratio n 06/01/2019 [facility] Personal Problem 2019-06-01 Mem oria history of 12:19:20 l other Personal Saúl n malignant history of neoplasm other of malignant bronchus neoplasm and lung of bronchus and lung 06/01/2019 [facility] [place] Unspecifie Problem 2019-06-01 M emoria d atrial 12:19:20 l fibrillati Saúl n on Unspecifie d atrial fibrillati on 06/01/2019 [facility] Essential Problem 2019-06-01 Me moria (primary) 12:19:20 l hypertensi Saúl n on Essential (primary) hypertensi on 06/01/2019 [facility] [place] Gastropare Problem 2019-06-01 M emoria sis 12:19:20 l [place] Gastropare sis 06/01/2019 [facility] Personal Problem 2019-06-01 Mem oria history of 12:19:20 l peptic Personal Saúl n ulcer history of disease peptic ulcer disease 06/01/2019 [facility] Polyneurop Problem 2019-06-01 M emoria athy, 12:19:20 l unspecifie Saúl n d Polyneurop athy, unspecifie d 06/01/2019 [facility] [place] Personal Problem 2019-06-01 Mem oria history of 12:19:20 l other Personal Saúl n malignant history of neoplasm other of skin malignant neoplasm of skin 06/01/2019 [facility] Personal Problem 2019-06-01 Mem oria history of 12:19:20 l nicotine Personal Herm allison dependence history of nicotine dependence 06/01/2019 [facility] [place] Anemia, Problem 2019-06-01 Desmond chitra unspecifie 12:19:20 l d Anemia, [place] unspecifie d 06/01/2019 [facility] Constipati Problem 2019-06-01 M emoria on, 12:19:20 l unspecifie Saúl n d Constipati on, unspecifie d 06/01/2019 [facility] MCFP Problem 2019-06-01 Me moria (current) 12:19:20 l use of Long [place] anticoagul term ants (current) use of anticoagul ants 9 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, [place] Malignant Problem Resolve 2019-06-01 M emoria neoplasm d 12:19:20 l of skin [place] (disorder) Malignant neoplasm of skin (disorder) Resolved Problem 06/01/2019 [facility] [place],[facility] [place] ABDMNAL Diagnosis Active 2016-05-11 Me moria PAIN 11:07:00 l UNSPCF ABDMNAL [place] SITE PAIN UNSPCF SITE Active [place] LEUKOCYTOS Diagnosis Active 2016-05-11 Memoria IS NOS 11:07:00 l [place] LEUKOCYTOS IS NOS Active [place] SEPTICEMIA Diagnosis Active 2016-05-11 Memoria NOS 11:07:00 l [place] SEPTICEMIA NOS Active [place] SYNCOPE Diagnosis Active 2015-06-06 Me moria AND 22:03:00 l COLLAPSE SYNCOPE Ruby nn AND COLLAPSE Active [place] PERITONEAL Diagnosis Active 2015-06-06 Memoria ABSCESS 22:03:00 l [place] PERITONEAL ABSCESS Active [place] ANEMIA NOS Diagnosis Active 2015-06-06 Memoria 22:03:00 l ANEMIA [place] NOS Active [place] MALAISE Diagnosis Active 2016-05-10 Me moria AND 06:43:00 l FATIGUE MALAISE Saúl n NEC AND FATIGUE NEC Active [place] OTHER Diagnosis Active 2015-10-06 Mem oria INTESTINAL 13:20:00 l OBSTRUCTIO OTHER Ruby nn N INTESTINAL OBSTRUCTIO N Active [place] ORTHOSTATI Diagnosis Active 2018-11-12 Memoria C 15:46:00 l HYPOTENSIO Saúl n N ORTHOSTATI C HYPOTENSIO N Active [facility] ACUTE Diagnosis Active 2018-11-12 Mem oria KIDNEY 15:46:00 l FAILURE, ACUTE [place] UNSPECIFIE KIDNEY D FAILURE, UNSPECIFIE D Active [facility] SYNCOPE Diagnosis Active 2018-11-12 Me moria AND 15:46:00 l COLLAPSE SYNCOPE Ruby nn AND COLLAPSE Active [place] Acute Problem 2019-06-01 2019-06-01 M emoria kidney 11-25 12:19:20 12:19:20 l failure, Acute 04:50: [place] unspecifie kidney 08 d failure, unspecifie d 11/25/2018 06/01/2019 [place] Partial Problem 2018-12-22 2018-12-22 Memoria intestinal 06-13 14:06:11 14:06:11 l obstructio Partial 03:35: Her leonardo n, intestinal 01 unspecifie obstructio d as to n, cause unspecifie d as to cause 06/13/2018 12/22/2018 [place] Allergies, Adverse Reactions, Alerts Allergy Allergy Status Severity Reaction(s) Onset Inactive Treating Comm ents Source Name Type Date Date Clinician Andreia Propensi Active Itching [place] ine ty to 7-13 Methodi adverse 00:00: st reaction 00 s to drug hydrALAZ hydrALAZ Active Memori a INE<sup> INE<sup> l 1</sup> 1</sup> [place] NKFA NKFA Active Memoria l [place] Social History Social Habit Start Date Stop Date Quantity Comments Source Sex Assigned At [facility] ethodist Social History 2015-05-17 2015-05-17 [place] umana 06:06:08 06:06:08 Smoking Status Start Date Stop Date Source Never smoker [place] Method t Former smoker 2016-09-11 00:00:00 2016-09-11 00:00:00 [facility] Medications Ordered Filled Start Stop Current Ordering Indication Dosage Frequency Signature Comments Components Source Medication Medication Date Date Medication? Clinician (SIG) Name Name rivaroxaban 2017-11 Yes 20 mg, PO, Memoria 20 MG Oral 2-26 Daily, 0 l Tablet 20:53: Refill(s) Saúl n [Xarelto] 00 Benzocaine 2017-11 No Notes: Memor ia 0.1 MG/MG - (Same As: l Oral Gel 16:53: Maximum Saúl n [Anbesol] 00 Strength PM Orajel ) Nortriptyli 2017-11 No Notes: Desmond chitra ne 2-26 (Same l 03:00: as:Pamelor , Aventyl) Finasteride 2017-11 No Notes: [place] chitra -26 (Same as: l 03:00: Proscar) "Do Not Crush" Women of childbeari ng age should not touch or handle broken tablets ferrous 2017-11 No Notes: Memoria sulfate 2-25 Give with l 23:00: food. "Do Not Crush" Aluminum 2017-11 No Notes: Memoria Hydroxide / 2-25 (aluminum l Magnesium 18:21: hydroxide- Hydroxide magnesium Simethicone hyd-simeth icone 200-200-20 mg/5ml 30 ml ud GENESIS) Sucralfate 2017-11 No Notes: March emoria 2-25 interfere l 15:00: w/enteral feeds - Take 1 hr before or 2 hr after antacids, dairy pdt, meals & minerals - On empty stomach. For patients unable to swallow tablet, dissolve in 10mL - 30mL of water or juice and stir before giving. (Same As: Carafate) Xarelto 2017-11 No 20 mg, Memoria 2-25 Route: PO, l 15:00: Drug form: TAB, Daily, Dosing Weight 90.909, kg, Start date: 11/11/18 9:00:00 COACH DRIVER, Duration: 30 day, Stop date: 12/10/18 9:00:00 COACH DRIVER Prilosec 2017-11 No 40 mg, Memoria 2-25 Route: PO, l 15:00: Drug form: DRC, BID, Dosing Weight 90.909, kg, Start date: 11/11/18 9:00:00 COACH DRIVER, Duration: 30 day, Stop date: 12/10/18 17:00:00 COACH DRIVER metoprolol 2017-11 No Notes: Memor ia extended 2-25 (Same as: l release 15:00: Toprol XL) Do Not Crush lactobacill 2017-11 No Notes: Desmond chitra us 2-25 Same as l rhamnosus 15:00: Culturelle gabapentin 2017-11 No Notes: Memor ia 2-25 (Same as: l 15:00: Neurontin) Slow 2017-11 No 45 mg, 1 Memoria Release 2-25 tab, l Iron 45 mg 15:00: Route: PO, H ermann oral 00 Drug form: tablet, ERTAB, extended BID, release Dosing Weight 90.909, kg, Start date: 11/11/18 9:00:00 COACH DRIVER, Duration: 30 day, Stop date: 12/10/18 17:00:00 COACH DRIVER Vitamin B12 2017-11 No Notes: [place]mond chitra 2-25 (Same As: l 15:00: Vitamin [place] 00 B12) Calcium 2017-11 No Notes: Memoria Carbonate 2-25 (Same As: l 1250 MG / 15:00: Vin-D, Herm allison Cholecalcif 00 OsCal-D, marah 200 Oyster UNT Oral Calcium) Tablet lactobacill 2017-11 No 1 tab, Desmond chitra us 2-25 Route: PO, l acidophilus 15:00: Drug Form: [place] 00 TAB, Dosing Weight 90.909, kg, Daily, Start date: 11/11/18 9:00:00 COACH DRIVER, Duration: 30 day, Stop date: 12/10/18 9:00:00 COACH DRIVER Azelastine 2017-11 No Notes: Memor ia hydrochlori 2-25 (azelastin l de 0.137 15:00: e 137 [place] MG/ACTUAT 00 microgram/ Metered inh 30 ml Dose Nasal nasal SPR) [facility] Non-formu souleymane drug. Same As: Astelin) Protonix 2017-11 No Notes: Memoria 2-25 Tablet l 15:00: should not [place] 00 be chewed or crushed. (Same as: Protonix) Meclizine 2017-11 No Notes: Memori a 2-25 (Same as: l 14:02: Antivert) [place] 00 Clonidine 2017-11 No Notes: Memori a Hydrochlori 2-25 (Same As: l de 0.1 MG 14:02: Catapres) Her leonardo Oral Tablet 00 linaclotide 2017-11 Yes 290 Memori a 2-25 microgram, l 12:01: PO, Daily, [place] 00 PRN Constipati on, 0 Refill(s) Slow 2017-11 No 45 mg = 1 Memoria Release 2-25 tab, PO, l Iron 45 mg 11:58: BID, 0 Ruby nn oral 00 Refill(s) tablet, extended release Ibuprofen 2017-11 Yes 100.4 F, Mem oria 2-25 0 l 11:58: Refill(s) [place] 00 meclizine 2017-11 No 12.5 mg = Mem oria 12.5 mg 2-25 1 tab, PO, l oral tablet 11:58: TID, PRN He rmann 00 as needed for dizziness, # 60 tab, 0 Refill(s) Nortriptyli 2017-11 No 25 mg, PO, Memoria ne 2-25 Bedtime, 0 l 11:55: Refill(s) [place] 00 gabapentin 2017-11 No 1,200 mg, Me moria 2-25 PO, BID, 0 l 11:46: Refill(s) [place] 00 Hydrochloro 2017-11 Yes 1 tab, PO, Memoria thiazide 2-25 Daily, # l 12.5 MG / 11:46: 90 tab, 1 Her leonardo Olmesartan 00 Refill(s) medoxomil 40 MG Oral Tablet rivaroxaban 2017-11 No 20 mg = 1 M emoria 20 MG Oral 2-25 tab, PO, l Tablet 10:29: Daily, # [place] [Xarelto] 00 30 tab, 3 Refill(s) metoprolol 2017-11 No 25 mg = 1 Me moria 25 mg oral 2-25 tab, PO, l tablet, 10:29: BID, 0 [place] extended 00 Refill(s) release Morphine 2017-11 No Notes: Memoria 2-25 (Same l 09:55: as:MORPhin [place] 00 e Sulfate) Acetaminoph 2017-11 No Notes: Desmond chitra en 325 MG / 2-25 (Same as: l Hydrocodone 09:55: [place] Ruby nn Bitartrate 00 325/5) Do 5 MG Oral not exceed Tablet 4gm/day of [[place]son acetaminop 5/325] hen. Sodium 2017-11 No 1,000 mL, Memori a Chloride 2-25 Rate: 100 l 0.9% IV 09:55: ml/hr, [place] 1,000 mL 00 Infuse over: 10 hr, Route: IV, Dosing Weight 90.909 kg, Total Volume: 1,000, Start date: 11/11/18 3:55:00 COACH DRIVER, Duration: 30 day, Stop date: 12/11/18 3:54:00 COACH DRIVER, 2.19, m2 Ondansetron 2017-11 No Notes: [place] chitra 2-25 (Same as: l 09:55: Zofran) [place] 00 MEDICATION WASTE Product Size: 4 mg Product Wasted: ___ mg Glucagon 2017- No 1 mg, Memoria 2-25 Route: IM, l 09:55: Drug form: [place] 00 PDR/INJ, PRN, Dosing Weight 90.909, kg, PRN Blood Glucose Results, Start date: 11/11/18 3:55:00 COACH DRIVER, Duration: 30 day, Stop date: 12/11/18 3:54:00 COACH DRIVER Dextrose 2017- No 25 gm, 50 [place] chitra 50% Syringe 2-25 mL, Route: l 09:55: IVP, Drug [place] 00 Form: INJ, Dosing Weight 90.909, kg, PRN, PRN Blood Glucose Results, Start date: 11/11/18 3:55:00 COACH DRIVER, Duration: 30 day, Stop date: 12/11/18 3:54:00 COACH DRIVER Saline 2017- No Notes: Memoria Flush 0.9% 2-25 (Same as: l 05:49: BD [place] 00 Posiflush) Sodium 2017- No 1,000 mL, Memori a Chloride 2-25 Infuse l 0.9% 05:49: Over: 1 [place] (Bolus) IV 00 hr, Route: IV, ONCE, Priority: STAT, Dosing Weight 90.909 kg, Start date: 11/10/18 23:49:00 COACH DRIVER, Stop date: 11/10/18 23:49:00 COACH DRIVER Sodium 2018- No 1,000 mL, Memori a Chloride 2-25 1,000 l 0.9% 05:45: ml/hr, [place] (Bolus) IV 00 Infuse Over: 1 hr, Route: IV, ONCE, Priority: STAT, Dosing Weight 90.909 kg, Start date: 11/10/18 23:45:00 COACH DRIVER, Stop date: 11/10/18 23:45:00 COACH DRIVER Fentanyl 2017-11 No 50 Memoria 2-25 microgram, l 05:45: Route: [place] 00 IVP, ONCE, Dosing Weight 90.909, kg, Priority: STAT, Start date: 11/10/18 23:45:00 COACH DRIVER, Stop date: 11/10/18 23:45:00 COACH DRIVER amLODIPine Yes amlodipine H rudolph (NORVASC) 5 06-13 5 mg [facility] mg tablet 09:39: tablet st 26 azelastine Yes azelastine H sreedharjamal (ASTELIN) 06-13 137 mcg Methodi 137 mcg 09:39: (0.1 %) st (0.1 %) 26 nasal nasal spray spray aerosol clonIDINE Yes clonidine [place] berry (CATAPRES) 06-13 HCl 0.1 mg Met hodi 0.1 MG 09:39: tablet st tablet 26 Take 1 tablet twice a day by oral route as needed. dronabinol Yes dronabinol Benedict rudolph (MARINOL) 06-13 2.5 mg Methodi 2.5 MG 09:39: capsule st capsule 26 Take 1 capsule every day by oral route for 90 days. finasteride Yes finasterid [place] (PROSCAR) 5 06-13 e 5 mg Method i mg tablet 09:39: tablet st 26 Take 1 tablet every day by oral route for 90 days. flecainide Yes flecainide Benedict rudolph (TAMBOCOR) 06-13 150 mg Methodi 150 MG 09:39: tablet st tablet 26 Take 1/2 tablet once a day by oral route for 90 days fludrocorti Yes fludrocort [place] nubia 06-13 isone 0.1 Methodi (FLORINEF) 09:39: mg tablet st 0.1 mg 26 Take 1 tablet tablet every day by oral route for 90 days furosemide Yes furosemide H rud[place] (LASIX) 40 06-13 40 mg Methodi mg tablet 09:39: tablet st 26 TAKE 1 TABLET BY MOUTH DAILY gabapentin Yes gabapentin Benedict rudolph (NEURONTIN) 06-13 600 mg Method i 600 mg 09:39: tablet st tablet 26 Take 2 tablets 3 times a day by oral route for 90 days. HYDROcodone Yes hydrocodon [place] -acetaminop 06-13 e 7.5 Methodi hen (NORCO) 09:39: mg-acetami st 7.5-325 mg 26 nophen 325 per tablet mg tablet Take 1 tablet every day by oral route for 30 days. linaclotide 2017-0 Yes Linzess [place] ston (LINZESS) 06-13 290 mcg Methodi 290 mcg 09:39: capsule st capsule 26 Take 1 capsule every day by oral route for 90 days. metoprolol 2017-0 Yes metoprolol [place] succinate 06-13 succinate Metho di XL 09:39: ER [address] (TOPROL-XL) 26 tablet,ext 50 mg 24 hr ended tablet release 24 hr Take 1 tablet every day by oral route for 90 days. sucralfate 2017-0 Yes sucralfate H rudolph (CARAFATE) 06-13 1 gram Methodi 1 gram 09:39: tablet st tablet 26 tamsulosin 2017-0 Yes tamsulosin H o[place]amal (FLOMAX) 06-13 0.4 mg Methodi 0.4 mg 09:39: capsule st capsule,ext 26 Take 1 ended capsule release every day 24hr by oral route for 90 days. valsartan 2017-0 Yes valsartan [place] ston (DIOVAN) 06-13 320 mg Methodi 320 MG 09:39: tablet st tablet 26 Take 1 tablet every day by oral route for 90 days. zolpidem 2017-0 Yes zolpidem [place] (AMBIEN) 10 06-13 10 mg Methodi mg tablet 09:39: tablet st 26 Take 1 tablet every day by oral route for 30 days. potassium 2017-0 Yes Klor-Con [place] chloride 06-13 M20 mEq Methodi (KLOR-CON 09:39: tablet,ext st M20) 20 MEQ 26 ended CR tablet release Take 1 tablet every day by oral route for 90 days. rivaroxaban 2017-0 Yes 20mg Take 20 mg [place] (XARELTO) 06-13 by mouth. Metho di 20 mg 09:39: st tablet 26 omeprazole 2017-0 Yes 40mg QD Take 40 mg [place] (PriLOSEC) 06-13 by mouth Metho di 40 MG 09:39: daily. st capsule 26 cyanocobala 2017-0 Yes 1000ug QD Take 1,000 [place] min 06-13 mcg by Methodi (VITAMIN 09:39: mouth st B-12) 1000 26 daily. MCG tablet calcium 2017-0 Yes 1{tbl} QD Chew 1 [place] carbonate 7-27 tablet Methodi (TUMS) 200 09:39: daily. st mg calcium 26 (500 mg) chewable tablet magnesium Yes 1000mg QD Take 1,000 [place] gluconate 7-27 mg by Methodi (MAGONATE) 09:39: mouth st 500 mg 26 daily. tablet tablet ferrous Yes 325mg QD Take 325 [place] sulfate 325 7-27 mg by Methodi (65 FE) MG 09:39: mouth st tablet 26 daily with breakfast. Amlodipine No Notes: Memor ia 7-18 (Same as: l 18:34: Norvasc) [place] 00 Docusate No Notes: Memoria Sodium 100 18 (Same as: l MG Oral 15:31: Colace) [place] Capsule 00 (Do Not [Colace] Crush) Fludrocorti No Notes: Desmond chitra sone -18 (Same as: l 14:00: Florinef [place] 00 Acetate) Give with food. Finasteride No Notes: [place]mond chitra -18 (Same as: l 14:00: Proscar) [place] 00 "Do Not Crush" Women of childbeari ng age should not touch or handle broken tablets ferrous No Notes: Memoria sulfate 18 Give with l 14:00: food. "Do Not Crush" Vitamin B12 No Notes: Desmond chitra 7-18 (Same As: l 14:00: Vitamin [place] 00 B-12) Flecainide No Notes: Memor ia 7-18 (Same as: l 02:00: Tambocor) [place] 00 tamsulosin No Notes: Memor ia 7-18 (Same As: l 02:00: Flomax) [place] 00 "Do Not Crush" Protonix No Notes: Memoria 7-17 Tablet l 22:00: should not be chewed or crushed. (Same as: Protonix) Prilosec No 40 mg, Memoria 7-17 Route: PO, l 22:00: Drug form: [place] 00 DRC, BID, Dosing Weight 87.727, kg, Start date: 06/03/18 17:00:00 CDT, Duration: 30 day, Stop date: 07/03/18 9:00:00 CDT 24 HR No Notes: Memoria Metoprolol 7-17 (Same as: l Tartrate 50 19:00: Toprol XL) [place] MG Extended March split Release tab, but Tablet do not [Toprol] crush. valsartan No Notes: Memori a 7-17 Same as l 19:00: Diovan [place] gabapentin No Notes: Memor ia 400 MG Oral -17 (Same as: l Capsule 18:00: Neurontin) Herm allison [Neurontin] 00 Sucralfate No Notes: March emoria 7-17 interfere l 18:00: w/enteral [place] 00 feeds - Take 1 hr before or 2 hr after antacids, dairy pdt, meals & minerals - On empty stomach. For patients unable to swallow tablet, dissolve in 10mL - 30mL of water or juice and stir before giving. (Same As: Carafate) Clonidine No Notes: Memori a Hydrochlori -17 (Same As: l de 0.1 MG 17:55: Catapres) Her leonardo Oral Tablet 00 Amlodipine No Notes: Memor ia 7-17 (Same as: l 17:55: Norvasc) zolpidem No Notes: Memoria 7-17 (Same As: l 03:40: Ambien) Ambien No 10 mg, Memoria 7-17 Route: PO, l 03:33: Bedtime, Dosing Weight 87.727, kg, PRN as needed for insomnia, Start date: 06/02/18 22:33:00 CDT, Duration: 30 day, Stop date: 07/02/18 22:32:00 CDT potassium No Notes: Memori a chloride 7-16 Infuse at l 22:00: a rate of 10 mEq/hr. (Same as: KCL) Labetalol No 10 mg, 2 Desmond chitra 7-16 mL, Route: l 20:59: IV, Drug form: INJ, Q4H, Dosing Weight 87.727, kg, PRN Hypertensi on, Start date: 06/02/18 15:59:00 CDT, Duration: 30 day, Stop date: 07/02/18 15:58:00 CDT Potassium No 40 mEq, Memor ia Chloride -16 Route: IV, l 20:45: ONCE, [place] 00 Dosing Weight 87.727, kg, Start date: 06/02/18 15:45:00 CDT, Stop date: 06/02/18 15:45:00 CDT finasteride No 5 mg = 1 Me moria 5 mg oral 7-16 tab, PO, l tablet 20:30: Bedtime, # Ruby nn 00 30 tab, 0 Refill(s) Probiotic Yes 1 cap, PO, Me moria Formula 7-16 Daily, 0 l 20:30: Refill(s) [place] Calcium No 1 tab, Memoria 500+D 7-16 CHEW, BID, l 20:30: 0 Refill(s) ferrous No 325 mg = 1 Desmond chitra sulfate 325 7-16 tab, PO, l MG Oral 20:30: Daily, 0 Saúl n Tablet 00 Refill(s) Amlodipine Yes 5 mg, PO, Me moria 7-16 PRN, 0 l 20:30: Refill(s) [place] 00 Clonidine No 0.1 mg = 1 Me moria Hydrochlori 7-16 tab, PO, l de 0.1 MG 20:30: BID, PRN Herm allison Oral Tablet 00 Hypertensi on, 0 Refill(s) valsartan No 320 mg = 1 Me moria 320 mg oral 7-16 tab, PO, l tablet 20:30: Daily, # Gavino 00 30 tab, 0 Refill(s) Enoxaparin No Notes: Memor ia -16 (Same as: l 14:00: Lovenox) phenol No Notes: Memoria 7-16 Chlorasept l 13:26: ic [facility] (Same as: Chlorasept ic, Sore Throat [facility]) WASTE: F/P - Black; E - Municipal Trash Bin Saline No Notes: Memoria Flush 0.9% 06-02 (Same as: l 13:09: BD Gav[place] Posiflush) Morphine 2017-0 No 2 mg, 1 Memori a 7-16 mL, Route: l 13:09: IVP, Drug Gavino form: SOLN, Q4H, Dosing Weight 87.727, kg, PRN Pain Score 7-10, Start date: 06/02/18 8:09:00 CDT, Duration: 30 day, Stop date: 07/02/18 8:08:00 CDT Ondansetron 2017-0 No Notes: Desmond chitra 7-16 (Same as: l 13:09: Zofran) [place] MEDICATION WASTE Product Size: 4 mg Product Wasted: ___ mg Sodium 2017- No 1,000 mL, Memori a Chloride 7-16 Rate: 100 l 0.9% IV 13:09: ml/hr, [place] 1,000 mL 00 Infuse over: 10 hr, Route: IV, Dosing Weight 87.727 kg, Total Volume: 1,000, Start date: 06/02/18 8:09:00 CDT, Duration: 30 day, Stop date: 07/02/18 8:08:00 CDT, 2.15, m2 potassium 2018- Yes 2 pack, Memor ia phosphate-s 5-27 PO, BID, l odium 19:06: OK to Gavino phosphate 00 substitute 250 mg-280 for any mg-160 mg equivalent oral powder oral for phosphorus reconstitut replacemen ion t (tab or powder form), # 100 ea, 0 Refill(s) Lactulose 2017- Yes 10 gm = 15 Me moria 667 MG/ML 5-27 mL, PO, l Oral 18:58: BID, PRN [place] Solution 00 as needed for constipati on, X 14 day, # 1 btl, 0 Refill(s) gabapentin 2017- Yes 800 mg = 2 M emoria 400 MG Oral 5-27 cap, PO, l Capsule 18:58: TID, # 180 Herm allison [Neurontin] 00 caplet, 0 Refill(s) Labetalol 2017- No 20 mg, 4 Desmond chitra 5-27 mL, Route: l 17:00: IVP, Drug [place] form: INJ, Q6H, Dosing Weight 86.364, kg, Start date: 04/13/18 12:00:00 CDT, Duration: 30 day, Stop date: 05/13/18 6:00:00 CDT Acetaminoph No Notes: Desmond chitra en 325 MG / 5-27 (Same as: l Hydrocodone 14:26: Hixson Ruby nn Bitartrate 00 325/5) Do 5 MG Oral not exceed Tablet 4gm/day of [Hixson acetaminop 5/325] hen. Cardizem CD No Notes: Desmond chitra 5-27 (Same as: l 14:00: Cardizem [place] CD) Do Not Crush Before meals. tamsulosin No Notes: Memor ia 5-27 (Same As: l 02:00: Flomax) "Do Not Crush" Lactulose No Notes: Memori a 667 MG/ML 5-26 (Same l Oral 20:00: as:Chronul [place] Solution ac) gabapentin No Notes: Memor ia 800 MG Oral 5-26 (Same as: l Tablet 18:00: Neurontin) Ruby nn [Neurontin] 00 Sucralfate No Notes: March emoria 5-26 interfere l 18:00: w/enteral Gav[place] 00 feeds - Take 1 hr before or 2 hr after antacids, dairy pdt, meals & minerals - On empty stomach. For patients unable to swallow tablet, dissolve in 10mL - 30mL of water or juice and stir before giving. (Same As: Carafate) Dulcolax No Notes: Memoria Laxative 5-26 (Same As: l 17:57: Dulcolax, Gavino Bisco-Lax) Prilosec No 40 mg, Memoria 5-26 Route: PO, l 14:00: Drug form: DRC, BID, Dosing Weight 86.364, kg, Start date: 04/12/18 9:00:00 CDT, Duration: 30 day, Stop date: 05/11/18 17:00:00 CDT Fludrocorti No Notes: Desmond chitra sone 5-26 (Same as: l 14:00: Florinef G[place] Acetate) Give with food. Azelastine No 137 Memoria hydrochlori 5-26 microgram, l de 0.137 14:00: 1 spray, Ruby nn MG/ACTUAT 00 Route: Metered NASAL, Dose Nasal Drug Form: [facility] SPRY, Dosing Weight 86.364, kg, BID, Start date: 04/12/18 9:00:00 CDT, Duration: 30 day, Stop date: 05/11/18 17:00:00 CDT gabapentin No Notes: Memor ia 600 MG Oral 5-26 (Same as: l Tablet 14:00: Neurontin) Ruby nn 00 tamsulosin Yes 0.4 mg = 1 M emoria 0.4 mg oral 5-26 cap, PO, l capsule 12:54: Bedtime, # Herm allison 00 30 cap, 0 Refill(s) Protonix No Notes: Memoria 5-26 Tablet l 12:30: should not [place] 00 be chewed or crushed. (Same as: Protonix) Zolpidem Yes 10 mg = 1 Desmond chitra tartrate 10 5-26 tab, PO, l MG Oral 09:20: Bedtime, Saúl n Tablet 00 PRN for [Ambien] sleep, 0 Refill(s) Docusate Yes 240 mg, Memori a 5-26 PO, Daily, l 09:13: PRN as [place] 00 needed for constipati on, 0 Refill(s) magnesium Yes 500 mg = 1 Me moria oxide 500 5-26 tab, PO, l mg oral 09:13: Daily, # Saúl n tablet 00 10 tab, 0 Refill(s) Vitamin B12 Yes 1,000 Memor ia 1000 mcg 5-26 microgram l oral tablet 09:13: = 1 tab, He rmann 00 PO, Daily, # 30 tab, 0 Refill(s) gabapentin No See Memoria 600 MG Oral 5-26 Instructio l Tablet 09:10: ns, 2 tab Saúl n 00 PO TID, 0 Refill(s) Tetrahydroc Yes See Memori a annabinol 5-26 Instructio l 09:07: ns, 2.4mg [place] 00 1 tablet at bedtime, 0 Refill(s) sucralfate Yes 1 gm = 1 Mem oria 1 g oral 5-26 tab, PO, l tablet 09:04: QID, # 120 Ruby nn 00 tab, 0 Refill(s) metoprolol Yes 50 mg = 1 Me moria tartrate 50 5-26 tab, PO, l mg oral 09:01: BID, # 180 Herm allison tablet 00 tab, 0 Refill(s) valsartan No 320 mg = 1 Me moria 320 mg oral 5-26 tab, PO, l tablet 09:01: Daily, # Gavino 00 30 tab, 0 Refill(s) amLODIPine Yes 10 mg = 1 Me moria 10 mg oral 5-26 tab, PO, l tablet 09:01: Daily, # [place] 00 90 tab, 0 Refill(s) Hydralazine No Notes: Desmond chitra 5-26 (Same as: l 06:29: Apresoline ) Push over 5 minutes Trazodone No Notes: Memori a Hydrochlori -26 (Same As: l de 50 MG 02:00: Desyrel) Ruby nn Oral Tablet 00 Flecainide No Notes: Memor ia 5-26 (Same as: l 02:00: Tambocor) Simethicone No Notes: Desmond chitra 5-26 (Same as: l 02:00: Mylicon) Tessalon No Notes: Memoria Perles 5-26 (Same As: l 02:00: Tessalon Perles) "Do Not Crush" Bisacodyl No Notes: Memori a 5-26 (Same As: l 02:00: Dulcolax, [place] 00 Bisco-Lax) Diphenhydra No Notes: Desmond chitra mine 5-26 (Same as: l 02:00: Benadryl) Ondansetron No Notes: Desmond chitra 5-26 (Same as: l 02:00: Zofran) MEDICATION WASTE Product Size: 4 mg Product Wasted: ___ mg Saline No Notes: [facility] Flush 0.9% 5-26 (Same as: l 02:00: BD [place] 00 Posiflush) Hydrocortis No Notes: Desmond chitra one 5-26 (Same as: l 02:00: Emily [place] 00 F) Streptococc No 0.5 mL, Mem oria us 5-26 Route: IM, l pneumoniae 00:34: ONCALL, Herm allison serotype 1 29 Start capsular date: antigen 04/11/18 diphtheria 19:34:29 [id number] CDT, Stop protein date: conjugate 05/11/18 vaccine / 19:29:29 Streptococc CDT us pneumoniae serotype 14 capsular antigen diphtheria [id number] protein conjugate vaccine / Streptococc us pneumoniae serotype 18C capsular antigen d Saline No Notes: [facility] Flush 0.9% 5-25 (Same as: l 23:13: BD [place] Posiflush) Saline No Notes: [facility] Flush 0.9% 5-25 (Same as: l 23:09: BD [place] Posiflush) Sodium No 1,000 mL, Memori a Chloride 5-25 Rate: 125 l 0.9% IV 23:09: ml/hr, Gavino 1,000 mL 00 Infuse over: 8 hr, Route: IV, Dosing Weight 91.108 kg, Total Volume: 1,000, Start date: 04/11/18 18:09:00 CDT, Duration: 30 day, Stop date: 05/11/18 18:08:00 CDT, 2.19, m2 Ondansetron No Notes: Desmond chitra 5-25 (Same as: l 23:09: Zofran) [place] 00 MEDICATION WASTE Product Size: 4 mg Product Wasted: ___ mg Acetaminoph No Notes: Do M emoria en 5-25 not exceed l 23:09: 4 gm/day. Gavino 00 (Same as: Tylenol) Sodium No 500 mL, Memoria Chloride 5-25 Infuse l 0.9% 20:32: Over: 1 Gavino (Bolus) IV 00 hr, Route: IV, ONCE, Priority: STAT, Dosing Weight 91.108 kg, Start date: 04/11/18 15:32:00 CDT, Stop date: 04/11/18 15:32:00 CDT Sodium 2017- No 1,000 mL, Memori a Chloride 5-25 Rate: 100 l 0.9% IV 20:32: ml/hr, [place] 1,000 mL 00 Infuse over: 10 hr, Route: IV, Dosing Weight 91.108 kg, Total Volume: 1,000, Start date: 04/11/18 15:32:00 CDT, Duration: 30 day, Stop date: 05/11/18 15:31:00 CDT, 2.19, m2 Saline No Notes: [facility] Flush 0.9% 5-25 (Same as: l 19:49: BD [place] 00 Posiflush) gabapentin 2015-11 Yes 600mg Q.5D Take [address] [facility] [address] [facility] (NEURONTIN) 0-20 [facility] - 600 MG 10:42: mouth 2 Medical tablet 28 (two) Center times daily . lisinopril 2015-11 Yes 10mg Q.5D Take [address] [facility] (PRINIVIL,Z 0-20 by mouth 2 Janiya kes - ESTRIL) 10 10:42: (two) Medica l MG tablet 28 times Center daily . omeprazole 2015-11 Yes 40mg Q.5D Take [address] [facility] (PRILOSEC) 0-20 by mouth 2 Dennis es - 40 MG 10:42: (two) Medical capsule 28 times Center daily . diltiazem 2015-11 Yes 120mg Q.25D Take [address] [facility] (CARDIZEM) 0-20 [facility] - 120 MG 10:42: mouth 4 Medical tablet 28 (four) Center times daily. oxybutynin 2015-11 Yes 5mg Take [address] [facility] [address] [facility] (DITROPAN) 0-20 by [facility] - 5 MG tablet 10:42: once. Medic al 28 Center rivaroxaban 2015-11 Yes 15 mg = 1 M emoria 15 MG Oral 0-19 tab, PO, l Tablet 16:14: Daily, # Gavino [Xarelto] 00 30 tab, 0 Refill(s) 24 HR 2015-11 Yes 120 mg = 1 Memori a Diltiazem 0-19 cap, PO, l Hydrochlori 16:14: Daily, # Carlos Alberto garcia de 120 MG 00 30 cap, 0 Extended Refill(s) Release Capsule [Cardizem] Xarelto 2015-11 No Notes: [facility] 0-19 (Same as: l 14:00: Xarelto) [place] 00 Administer with food potassium 2015-11 No Notes: Memori a chloride 0-19 (Same as: l 00:14: KCL) [place] 00 Infuse no faster than 10 mEq/hr if given peripheral ly. sodium 2015-11 No 30 mmol, Memoria phosphate + 0-19 10 mL, l sodium 00:14: Route: [place] chloride 00 IVPB, PRN, 0.9% INJ Dosing 250 mL Weight 84.091, kg, PRN Abnormal Lab Result, Start date: 09/04/16 19:14:00 CDT, Duration: 30 day, Stop date: 10/04/16 18:13:00 COACH DRIVER, FOR ICU USE ONLY potassium 2015-11 No Notes: Memori a phosphate + 0-19 (Same as: l sodium 00:14: K [place] chloride 00 Phosphate. 0.9% INJ ) 1 mMol 250 mL phoshate has 1.47 mEq potassium Infuse over 4 hours Magnesium 2015-11 No Notes: Memori a Oxide 0-19 (Same as: l 00:14: Mag-Ox [place] 00 400) Magnesium oxide 342cn=261w g elemental magnesium Dose=____m g magnesium oxide (___mg elemental magnesium) Calcium 2015-11 No Notes: Mem[facility] Gluconate 0-19 WASTE: F/P l 00:14: - Sink; E [place] 00 - Municipal Trash Bin Calcium 2015-11 No Notes: [facility] Carbonate 0-19 (Same As: l 500 MG 00:14: Tums) Gav[place] Chewable 00 Calcium Tablet Carbonate 500 mg = 200 mg elemental calcium Dose = mg calcium carbonate ( mg elemental calcium) Magnesium 2015-11 No Notes: Memori a Sulfate 0-19 WASTE: F/P l 00:14: - Sink; E [place] 00 - Municipal Trash Bin potassium 2015-11 No Notes: Memori a phosphate-s 0-19 (Same as: l odium 00:14: Phos-NaK) [place] phosphate 00 Each 1.5 250 mg-280 gm pkt has mg-160 mg 250mg oral powder phosphorou for s. Mix reconstitut w/2.5oz ion water and stir. Glucagon 2015-11 No 1 mg, Memoria 0-19 Route: IM, l 00:12: Drug form: [place] 00 PDR/INJ, PRN, Dosing Weight 84.091, kg, PRN Blood Glucose Results, Start date: 09/04/16 19:12:00 CDT, Duration: 30 day, Stop date: 10/04/16 18:11:00 COACH DRIVER Dextrose 2015-11 No 12.5 gm, Memor ia 50% Syringe 0-19 25 mL, l 00:12: Route: [place] 00 IVP, Drug Form: INJ, Dosing Weight 84.091, kg, PRN, PRN Blood Glucose Results, Start date: 09/04/16 19:12:00 CDT, Duration: 30 day, Stop date: 10/04/16 18:11:00 COACH DRIVER Insulin, 2015-11 No Notes: [facility] Aspart, 0-19 Roll in l Human 00:12: palms of [place] 00 hands gently; Do not shake vigorously . (Same as: NovoLOG) "single patient use only" WASTE: F/P - Black; E - [employer] Trash Bin Stable for 28 days at room temperatur e. Expires in days from ____Date Cardizem 2015-11 No Notes: [facility] 0-18 (Same as: l 23:21: Cardizem) [place] 00 Before meals heparin 2015-11 No 500 mL, [facility]oria additive 0-18 Rate: l 25,000 unit 19:55: 21.36 Ruby nn [14 00 ml/hr, unit/kg/hr] Infuse + Premix over: 23.4 Diluent hr, Route: Dextrose 5% IV, Dosing 500 mL Weight 76.3 kg, Total Volume: 500 mL, Start date: 09/04/16 14:55:00 CDT, Duration: 30 day, Stop date: 10/04/16 14:54:00 COACH DRIVER Diltiazem 2015-11 No Notes: Memori a 0-18 (Same as: l 18:18: Cardizem) [place] 00 Lactulose 2015-11 No Notes: Memori a 0-18 (Same l 14:00: as:Chronul [place] 00 ac) sodium 2015-11 No 1,000 mL, Memori a chloride 0-18 Rate: 100 l 0.9% 1000 05:27: ml/hr, Saúl n ml INJ 00 Infuse 1,000 mL over: 10 hr, Route: IV, Dosing Weight 84.091 kg, Total Volume: 1,000, Start date: 09/04/16 0:27:00 CDT, Duration: 30 day, Stop date: 10/04/16 0:26:00 COACH DRIVER Lisinopril 2015-11 No Notes: Memor ia 0-18 (Same as: l 02:00: Prinivil, Zestril) Lactulose 2015-11 No Notes: Memori a 0-18 (Same l 00:02: as:Chronul ac) Sodium 2015-11 No 500 mL, Mem[facility] Chloride 0-17 Rate: 500 l 0.9% IV 500 17:40: ml/hr, Herm allison mL 00 Infuse over: 1 hr, Route: IV, Dosing Weight 84.091 kg, Total Volume: 500, Start date: 09/03/16 12:40:00 CDT, Duration: 1 doses or times, Stop date: 09/03/16 13:39:00 CDT sodium 2015-11 No 1,000 mL, Memori a chloride 0-17 Rate: 150 l 0.9% 1000 17:39: ml/hr, Saúl n ml INJ 00 Infuse 1,000 mL over: 6.7 hr, Route: IV, Dosing Weight 84.091 kg, Total Volume: 1,000, Start date: 09/03/16 12:39:00 CDT, Duration: 30 day, Stop date: 10/03/16 12:38:00 COACH DRIVER Hydralazine 2015-11 No 10 mg, Desmond chitra 0-17 Route: IV, l 16:52: ONCE, Dosing Weight 84.091, kg, Priority: NOW, Start date: 09/03/16 11:52:00 CDT, Stop date: 09/03/16 11:52:00 CDT [place] Enema 2015-11 No 133 mL, Mem oria 0-17 Route: MN, l 15:12: Drug Form: OPAL, Dosing Weight 84.091, kg, ONCE, Start date: 09/03/16 10:12:00 CDT, Stop date: 09/03/16 10:12:00 CDT Hydralazine 2015-11 No Notes: Desmond chitra 0-17 (Same as: l 07:36: Apresoline [place] 00 ) Push over 5 minutes oxybutynin 2015-11 Yes 5 mg = 1 Mem oria 5 mg oral 0-16 tab, PO, l tablet 15:48: Bedtime, # Ruby nn 00 60 tab, 1 Refill(s) tramadol 2015-11 Yes 50 mg = 1 Desmond chitra hydrochlori 0-16 tab, PO, l de 50 MG 15:48: Q6H, PRN Ruby nn Oral Tablet 00 Pain, # 40 tab, 0 Refill(s) Trazodone 2015-11 Yes 50 mg = 1 Mem oria Hydrochlori 0-16 tab, PO, l de 50 MG 15:48: Bedtime, # Her leonardo Oral Tablet 00 30 tab, 1 Refill(s) 24 HR 2015-11 No 60 mg = 2 Memoria Nifedipine 0-16 tab, PO, l 30 MG 15:48: BID, # 30 G[place] Extended 00 tab, 0 Release Refill(s) Tablet fludrocorti 2015-11 Yes 0.1 mg = 1 Memoria sone 0.1 mg 0-16 tab, PO, l oral tablet 15:48: QAM, # 30 H ermann 00 tab, 0 Refill(s) lisinopril 2015-11 Yes 10 mg = 1 Me moria 10 mg oral 0-16 tab, PO, l tablet 15:48: BID, # 30 Saúl n 00 tab, 0 Refill(s) Fludrocorti 2015-11 No Notes: Desmond chitra sone 0-16 (Same as: l 14:00: Florinef [place] 00 Acetate) Give with food. pantoprazol 2015-11 No Notes: Desmond chitra e 0-16 Tablet l 14:00: should not [place] 00 be chewed or crushed. (Same as: Protonix) oxybutynin 2015-11 No Notes: Memor ia 0-16 Same as: l 14:00: Ditropan) [place] 00 24 HR 2015-11 No Notes: [facility] Nifedipine 0-16 (Same as: l 30 MG 14:00: Procardia [place] Extended 00 XL) "Do Release Not Crush" Tablet "Avoid grapefruit and grapefruit juice" Lisinopril 2015-11 No Notes: Memor ia 0-16 (Same as: l 14:00: Prinivil, [place] 00 Zestril) Bisacodyl 2015-11 No Notes: Memori a 0-16 (Same As: l 14:00: Dulcolax, [place] 00 Correctol) (Do Not Crush) "Do Not Crush" azelastine 2015-11 Yes 1 spray, Mem oria nasal 0.1% 0-16 NASAL, l (137 03:00: BID, 0 Gavino mcg/inh) 00 Refill(s) spray oxybutynin 2015-11 No 5 mg = 1 Mem oria 5 mg oral 0-16 tab, PO, l tablet 02:50: Daily, # [place] 00 60 tab, 1 Refill(s) tramadol 2015-11 No 50 mg = 1 Desmond chitra hydrochlori 0-16 tab, PO, l de 50 MG 02:50: QPM, # 30 Herm allison Oral Tablet 00 tab, 0 Refill(s) 24 HR 2015-11 No 60 mg = 1 Mem[facility] Nifedipine 0-16 tab, PO, l 60 MG 02:50: Daily, # [place] Extended 00 30 tab, 0 Release Refill(s) Tablet Acetaminoph 2015-11 No Notes: Desmond chitra en 325 MG / 0-16 Same as l Hydrocodone 02:18: Hixson Ruby nn Bitartrate 00 325-7.5mg 7.5 MG Oral Do not Tablet exceed 4gm/day of acetaminop hen. Flecainide 2015-11 No Notes: Memor ia 0-16 (Same as: l 02:00: Tambocor) [place] 00 Saline 2015-11 No Notes: [facility] Flush 0.9% 0-16 (Same as: l 02:00: BD [place] 00 Posiflush) docusate 2015-11 No Notes: Memoria sodium 100 0-16 (Same as: l mg oral 02:00: Colace) [place] capsule 00 (Do Not Crush) gabapentin 2015-11 No Notes: Memor ia 600 MG Oral 0-15 (Same as: l Tablet 22:00: Neurontin) Ruby nn 00 Docusate 2015-11 No 50 mg, 1 Memor ia Sodium 50 0-15 cap, l MG Oral 22:00: Route: PO, Herm allison Capsule 00 BID, [Colace] Dosing Weight 84.091, kg, Start date: 09/01/16 17:00:00 CDT, Duration: 30 day, Stop date: 10/01/16 9:00:00 COACH DRIVER Acetaminoph 2015-11 No Notes: Desmond chitra en 325 MG / 0-15 (Same as: l Hydrocodone 21:56: Hixson Ruby nn Bitartrate 00 325/5) Do 5 MG Oral not exceed Tablet 4gm/day of [Hixson acetaminop 5/325] hen. Saline 2015-11 No Notes: [facility] Flush 0.9% 0-15 (Same as: l 20:22: BD [place] 00 Posiflush) tramadol 2015-11 No Notes: Not Mem oria hydrochlori 0-15 to exceed l de 50 MG 20:11: 400mg/day. Her leonardo Oral Tablet 00 (Same As: Ultram) Saline 2015-11 No Notes: [facility] Flush 0.9% 0-15 (Same as: l 17:05: BD [place] 00 Posiflush) HYDROcodone Yes 1{tbl} Take [address] [facility] [address] [facility] -acetaminop 6-03 tablet by Dennis duron (NORCO 13:37: mouth Medica l 7.5-325) 12 every 6 Center 7.5-325 mg (six) per tablet hours as needed for Pain. temazepam 2015-0 Yes 15mg Take [address] [facility] [address] [facility] (RESTORIL) 6-03 by [facility] - 15 mg 13:37: every Medical capsule 12 night as Center needed for Sleep. flecainide 2016-0 Yes 150mg Q.5D Take [address] [facility] [address] [facility] (TAMBOCOR) 6-03 [facility] - 150 MG 13:37: mouth 2 Medical tablet 11 (two) Center times daily. fludrocorti 2016-0 Yes .1mg QD Take 0.[address] [facility] [address] [facility] sone 6-03 mg [facility] - (FLORINEF) 13:37: mouth Medica l 0.1 mg 11 daily. Center tablet rivaroxaban 2015-0 Yes Take by [facility] (XARELTO) 6-03 mouth. [facility] - 15 mg Tab 13:31: Medical tablet 31 Center remove 2014-11 No Notes: [facility] patch -25 Remove old l 07:00: patch [place] 00 before applicatio n of new patch. Magnesium 2014-11 No 2 gm, 50 Desmond chitra Sulfate 1-24 mL, Route: l 16:35: IVPB, Drug [place] 00 form: INJ, ONCE, Dosing Weight 79.716, kg, Total dose = 2 gm, Start date: 10/11/15 10:35:00, Duration: 1 doses or times, Stop date: 10/11/15 10:35:00 Protonix 2014-11 No Notes: [facility] 1-24 Tablet l 15:00: should not [place] 00 be chewed or crushed. (Same as: Protonix) gabapentin 2014-11 No Notes: Memor ia -24 (Same as: l 03:00: Neurontin) [place] 00 gabapentin 2014-11 No 300 mg, 1 Me moria 300 MG Oral 1-24 cap, l Capsule 03:00: Route: PO, Herm allison 00 Daily, Dosing Weight 79.716, kg, Start date: 10/10/15 21:00:00, Duration: 30 day, Stop date: 11/09/15 9:00:00 Flecainide 2014-11 No Notes: Memor ia - (Same as: l 15:00: Tambocor) [place] 00 Lisinopril 2014-11 No Notes: Memor ia 12-10 (Same as: l 15:00: Prinivil, [place] 00 Zestril) Magnesium 2014-11 No Notes: Memori a Oxide 12-10 (Same as: l 15:00: Mag-Ox [place] 00 400) Magnesium oxide [id number]=[id number] g elemental magnesium Dose=____m g magnesium oxide (___mg elemental magnesium) Acetaminoph 2014-11 No Notes: Do M emoria en 325 MG / 12-10 not exceed l Hydrocodone 04:02: 4gm/day of [place] Bitartrate 00 acetaminop 10 MG Oral hen. Tablet (Same as: [Hixson Hixson 10/325] 325/10) Lisinopril 2014-11 No Notes: Memor ia - (Same as: l 23:20: Prinivil, [place] 00 Zestril) Magnesium 2014-11 No 2 gm, 50 Desmond chitra Sulfate 1-21 mL, Route: l 22:00: IVPB, Drug form: INJ, Q2H, Dosing Weight 79.716, kg, Total dose = 4 gm, Start date: 10/08/15 16:00:00, Duration: 2 doses or times, Stop date: 10/08/15 18:00:00 Dilaudid 2014-11 No Notes: [facility] -21 (Same as: l 21:46: Dilaudid) phenol 2014-11 No Notes: [facility] - Chlorasept l 20:44: ic [facility] (Same as: Chlorasept ic, Sore Throat [facility]) Dilaudid 2014-11 No Notes: [facility] - (Same as: l 19:45: Dilaudid) Diphenhydra 2014-11 No Notes: Desmond chitra mine - (Same as: l 04:45: Benadryl) Temazepam 2014-11 No Notes: Memori a - (Same As: l 04:41: Restoril) Amino Acids 2014-11 No Notes: Desmond chitra 4.25% with 12-08 Same as: l 5% Dextrose 03:00: ClinimixE H ermann and 00 Electrolyte s (Clinimix E Sulfite-Marito e) 1000 mL Hydromorpho 2014-11 No Notes: Desmond chitra ne -20 (Same as: l 19:07: Dilaudid) ketOROLAC 2014-11 No 4 days Memor ia 30 mg/mL - l injectable 19:07: MEDICATION H ermann solution 00 WASTE Product Size: 30 mg Product Wasted: _15__ mg Benadryl 2014-11 No Notes: [facility] 1-20 (Same as: l 19:05: Benadryl) Magnesium 2014-11 No 2 gm, 50 Desmond chitra Sulfate 1-20 mL, Route: l 18:06: IVPB, Drug form: INJ, ONCE, Dosing Weight 79.716, kg, Total dose = 2 gm, Start date: 10/07/15 12:06:00, Duration: 1 doses or times, Stop date: 10/07/15 12:06:00 Dilaudid 2014-11 No Notes: [facility] 1-20 (Same as: l 16:29: Dilaudid) Benadryl 2014-11 No Notes: [facility] 1-20 (Same as: l 09:36: Benadryl) Amino Acids 2014-11 No Notes: Desmond chitra 4.25% with 1-20 Same as: l 5% Dextrose 03:00: ClinimixE H erm and 00 Electrolyte s (Clinimix E Sulfite-Marito e) 2,000 mL Metoprolol 2014-11 No Notes: Memor ia 1-20 (Same as: l 00:00: Lopressor) Push over 2 minutes Hydralazine 2014-11 No Notes: Desmond chitra 1-20 (Same as: l 00:00: Apresoline ) Push over 5 minutes Phenergan 2014-11 No Notes: Do Mem oria -19 not give l 20:50: IV push. (Same as: Phenergan) Clinimix E 2014-11 No 1,000 mL, Me moria Sulfite-Marito -19 Rate: 75 l e 4.25% 20:49: ml/hr, [place] with 5% 00 Infuse Dextrose over: 13.3 and hr, Route: Electrolyte IV, Dosing s 1000 mL Weight 79.716 kg, Total Volume: 1,000 mL, Start date: 10/06/15 14:49:00, Duration: 30 day, Stop date: 11/05/15 14:48:00 gabapentin 2014-11 Yes = 3 cap, Mem oria 600 MG Oral 1-19 PO, l Tablet 18:27: Bedtime, 0 Ruby nn 00 Refill(s) Acetaminoph 2014-11 Yes 1 tab, PO, Memoria en 325 MG / 1-19 Q6H, PRN l Hydrocodone 18:21: Pain, # 28 [place] Bitartrate 00 tab, 0 7.5 MG Oral Refill(s) Tablet lisinopril 2014-11 Yes 20 mg = 2 Me moria 10 mg oral 1-19 tab, PO, l tablet 18:21: Daily, # [place] 00 90 tab, 1 Refill(s) fludrocorti 2014-11 Yes 0.1 mg = 1 [facility] sone 0.1 mg -19 tab, PO, l oral tablet 18:21: Daily, # He rmann 00 30 tab, 3 Refill(s) potassium 2014-11 No Notes: Memori a chloride -19 Infuse at l 18:00: a rate of [place] 00 10 mEq/hr. (Same as: KCL) Morphine 2014-11 No Notes: [facility] - (Same l 17:03: as:MORPhin [place] 00 e Sulfate) Hydralazine 2014-11 No Notes: Desmond chitra 12-06 (Same as: l 17:01: Apresoline [place] 00 ) Push over 5 minutes potassium 2014-11 No 20 mEq, Memor ia chloride 12-06 Route: IV, l 16:45: ONCE, [place] 00 Dosing Weight 79.716, kg, Start date: 10/06/15 10:45:00, Stop date: 10/06/15 10:45:00 Protonix 2014-11 No Notes: For Mem oria 12-06 IV push l 15:00: reconstitu [place] 00 te with 10 ml 0.9% sodium chloride and push over 2 minutes. (Same as: Protonix) Zofran 2014-11 No Notes: Memoria - (Same as: l 07:09: Zofran) [place] 00 MEDICATION WASTE Product Size: 4 mg Product Wasted: ___ mg Morphine 2014-11 No Notes: Memoria - (Same l 07:08: as:MORPhin Gav[place] 00 e Sulfate) 168 HR 2014-11 No Notes: Memoria Clonidine -19 Patch l 0.0125 07:08: delivers [place] MG/HR 00 0.3 mg/24 Transdermal hours; Patch Patch is applied weekly. Catapres-T TS-3. "Remove old patch before applicatio n of new patch" D5NS + KCL 2014-11 No Notes: Memor ia 40mEq/L 12-06 PREMIX IV l 1000ml 07:07: - Do Not [place] (Premix) 00 Alter 1,000 mL Labetalol 2014-11 No Notes: Memori a -19 (Same as: l 06:47: Normodyne, [place] 00 Trandate) Push over 2 minutes Give bolus over 2-3 minutes. influenza 2014-11 No 0.5 mL, Memor ia virus 12-06 Route: IM, l vaccine, 05:29: Saúl RASHID n inactivated 21 Start date: 10/05/15 23:29:21, Stop date: 11/04/15 23:24:21 Glucose 50 2014-11 No 1,000 mL, Me moria MG/ML / 12-06 Rate: 125 l Sodium 04:29: ml/hr, Gavino Chloride 00 Infuse 0.0769 over: 8 MEQ/ML hr, Route: Injectable IV, Dosing Solution Weight 81.364 kg, Total Volume: 1,000, Start date: 10/05/15 22:29:00, Duration: 30 day, Stop date: 11/04/15 22:28:00 Saline 2014-11 No Notes: Memoria Flush 0.9% 12-06 (Same as: l 04:29: BD [place] 00 Posiflush) Morphine 2014-11 No Notes: [facility]oria 12-06 (Same l 04:29: as:MORPhin [place] 00 e Sulfate) Acetaminoph 2014-11 No Notes: Desmond chitra en 325 MG / 12-06 (Same as: l Hydrocodone 04:29: [place] Ruby nn Bitartrate 00 325/5) Do 5 MG Oral not exceed Tablet 4gm/day of acetaminop hen. 2014-11 No 4 mg, Memoria 12-06 Route: l 03:35: IVP, Drug [place] 00 form: INJ, ONCE, Dosing Weight 81.364, kg, Priority: STAT, Start date: 10/05/15 21:35:00, Stop date: 10/05/15 21:35:00 Morphine 2014-11 No 4 mg, [facility] 12-06 Route: l 03:26: IVP, Drug [place] 00 form: INJ, ONCE, Dosing Weight 81.364, kg, Priority: STAT, Start date: 10/05/15 21:26:00, Stop date: 10/05/15 21:26:00 Morphine 2014-11 No Notes: Memoria 12-06 (Same l 00:44: as:MORPhin [place] 00 e Sulfate) Zofran 2014-11 No Notes: Memoria - (Same as: l 00:44: Zofran) MEDICATION WASTE Product Size: 4 mg Product Wasted: ___ mg Sodium 2014-11 No 1,000 mL, Memori a Chloride 12-06 1000 l 0.154 00:08: ml/hr, [place] MEQ/ML 00 Infuse Injectable Over: 1 Solution hr, Route: IV, 1,000, Drug form: INJ, ONCE, Priority: STAT, Dosing Weight 81.364 kg, Start date: 10/05/15 18:08:00, Duration: 1 doses or times, Stop date: 10/05/15 18:08:00 Saline 2014-11 No Notes: Memoria Flush 0.9% 12-06 (Same as: l 00:08: BD [place] 00 Posiflush) carvedilol Yes 6.25 mg = Me moria 3.125 mg 06-19 2 tab, PO, l oral tablet 15:29: Q12H, # 60 [place] 00 tab, 0 Refill(s) fludrocorti Yes 0.1 mg = 1 Memoria sone 0.1 mg 06-19 tab, PO, l oral tablet 15:29: Daily, # He rmann 00 30 tab, 0 Refill(s) Megestrol Yes 400 mg = Desmond chitra Acetate 40 06-19 10 mL, PO, l MG/ML Oral 15:29: BID, # 600 H ermann Suspension 00 mL, 0 Refill(s) 24 HR Yes 30 mg = 1 Memoria Nifedipine 02 tab, PO, l 30 MG 15:29: Daily, # [place] Extended 00 30 tab, 0 Release Refill(s) Tablet 24 HR No Notes: Memoria Nifedipine 06-18 (Same as: l 90 MG 14:00: Procardia [place] Extended 00 XL) "Do Release Not Crush" Tablet "Avoid grapefruit and grapefruit juice" Levaquin No Notes: Do Desmond chitra 06-17 not give l 01:00: w/antacids , dairy pdt & minerals Take 1 hr before or 2 hr after dairy pdt (Same as:Levaqui n) potassium No Notes: Memori a chloride 06-16 (Same as: l 17:31: Potassium Chloride) Florinef No Notes: Memoria 7-29 (Same as: l 20:16: Florinef Acetate) Give with food. Aspirin 325 No Notes: Desmond chitra MG Oral 7-28 Take with l Tablet 22:00: food. Megace No 400 mg, 10 Memor ia 7-28 mL, Route: l 22:00: PO, Drug form: SUSP, BID, Dosing Weight 84.091, kg, Start date: 06/14/15 17:00:00, Duration: 30 day, Stop date: 07/14/15 9:00:00 24 HR No Notes: Memoria Nifedipine 7-28 (Same as: l 90 MG 14:00: Procardia [place] Extended 00 XL) "Do Release Not Crush" Tablet "Avoid grapefruit and grapefruit juice" D5NS 1,000 No 1,000 mL, Me moria mL - Rate: 75 l 02:09: ml/hr, Infuse over: 13.3 hr, Route: IV, Dosing Weight 84.091 kg, Total Volume: 1,000, Start date: 06/13/15 21:09:00, Stop date: 07/13/15 21:08:00 tamsulosin No Notes: Memor ia 7-28 (Same As: l 02:00: Flomax) "Do Not Crush" Coreg No Notes: Memoria 7-28 Give with l 02:00: food. (Same As: Coreg) Lisinopril No Notes: Memor ia 7-27 (Same as: l 14:00: Prinivil, Zestril) Hydralazine No Notes: Desmond chitra Hydrochlori 7-27 (Same as: l de 25 MG 13:00: Apresoline Her leonardo Oral Tablet ) May interfere w/enteral feedings Take With Food. Hydralazine No Notes: Desmond chitra 7-27 (Same as: l 12:05: Apresoline [place] ) Push over 5 minutes Hydralazine No Notes: Desmond chitra Hydrochlori 7-27 (Same as: l de 25 MG 09:22: Apresoline Her leonardo Oral Tablet 00 ) May interfere w/enteral feedings Take With Food. Protonix No Notes: Memoria 7-26 Tablet l 21:30: should not [place] 00 be chewed or crushed. (Same as: Protonix) Levaquin No Notes: Do Desmond chitra 7-26 not give l 21:00: w/antacids [place] 00 , dairy pdt & minerals Take 1 hr before or 2 hr after dairy pdt (Same as:Levaqui n) Hydralazine No 25 mg = 1 M emoria Hydrochlori 7-26 tab, PO, l de 25 MG 18:23: ONCE, # Saúl n Oral Tablet 00 120 tab, 0 Refill(s) clindamycin No 300 mg = 1 Memoria 300 mg oral 7-26 cap, PO, l capsule 18:14: Q6H, # 40 Ruby nn 00 cap, 0 Refill(s) Ciprofloxac No 500 mg = 1 Memoria in 500 MG 7-26 tab, PO, l Oral Tablet 18:14: Q12H, # 28 Gav[place] [Cipro] 00 tab, 0 Refill(s) Hydralazine No 50 mg = 1 M emoria Hydrochlori 7-26 tab, PO, l de 50 MG 18:14: Q8H, # 120 Her leonardo Oral Tablet 00 tab, 0 Refill(s) lisinopril Yes 40 mg = 1 Me moria 40 mg oral 7-26 tab, PO, l tablet 18:14: Daily, # [place]av[place] 00 30 tab, 0 Refill(s) 24 HR No 90 mg = 1 Memoria Nifedipine 7-26 tab, PO, l 90 MG 18:14: Daily, # [place] Extended 00 30 tab, 0 Release Refill(s) Tablet gabapentin No Notes: Memor ia 400 MG Oral 7-26 (Same as: l Capsule 14:00: Neurontin) Herm allison 00 Docusate No Notes: Memoria 7-26 (Same as: l 14:00: Colace) [place] 00 (Do Not Crush) Flecainide No Notes: Memor ia 7-26 (Same as: l 14:00: Tambocor) Digoxin No Notes: Memoria 06-12 Take on an l 14:00: Empty [place] 00 Stomach (Same as: Lanoxin) Lovenox No Notes: Memoria 06-12 (Same as: l 05:00: Lovenox) Clindamycin No Notes: Desmond chitra 06-12 (Same As: l 05:00: Cleocin) Ciprofloxac No Notes: May Memoria in 06-12 interfere l 05:00: w/enteral [place] 00 feedings - Take 1 hr before or 2 hrs after antacids, dairy pdt & minerals. On empty stomach. NS 1,000 mL No 1,000 mL, M emoria 06-12 Rate: 75 l 04:25: ml/hr, Infuse over: 13.3 hr, Route: IV, Dosing Weight 84.119 kg, Total Volume: 1,000, Start date: 06/11/15 23:25:00, Duration: 30 day, Stop date: 07/11/15 23:24:00 tramadol No Notes: Not Mem oria hydrochlori 06-12 to exceed l de 50 MG 04:08: 400mg/day. Her leonardo Oral Tablet 00 (Same As: Ultram) Temazepam No Notes: Memori a 06-12 (Same As: l 04:08: Restoril) gabapentin No Notes: Memor ia 400 MG Oral 06-12 (Same as: l Capsule 04:07: Neurontin) Saline No Notes: Memoria Flush 0.9% 06-12 (Same as: l 04:01: BD Posiflush) Ondansetron No Notes: Desmond chitra 06-12 (Same as: l 04:01: Zofran) MEDICATION WASTE Product Size: 4 mg Product Wasted: _0__ mg Morphine No Notes: Memoria 06-12 (Same l 04:01: as:MORPhin e Sulfate) Acetaminoph No Notes: Do M emoria en 06-12 not exceed l 04:01: 4 gm/day. (Same as: Tylenol) Acetaminoph No Notes: Desmond chitra en 325 MG / 06-12 (Same as: l Hydrocodone 04:01: Hixson Ruby nn Bitartrate 00 325/5) Do 5 MG Oral not exceed Tablet 4gm/day of acetaminop hen. Acetaminoph Yes 1 tab, PO, Memoria en 325 MG / 05-31 Q6H, PRN l Hydrocodone 20:08: Pain Score [place] Bitartrate 1-3, # 30 5 MG Oral tab, 0 Tablet Refill(s) [Hixson 5/325] Hydralazine Yes 50 mg = 1 M emoria Hydrochlori -14 tab, PO, l de 50 MG 19:14: Q8H, # 90 Herm allison Oral Tablet 00 tab, 0 Refill(s) lisinopril Yes 40 mg = 1 Me moria 40 mg oral 14 tab, PO, l tablet 19:14: Daily, # [place] 00 30 tab, 0 Refill(s) 24 HR Yes 90 mg = 1 Memoria Nifedipine - tab, PO, l 90 MG 19:14: Daily, # [place] Extended 00 30 tab, 0 Release Refill(s) Tablet clindamycin Yes 300 mg = 1 Memoria 300 mg oral 05-31 cap, PO, l capsule 17:22: Q6H, X 14 Ruby nn , # 56 cap, 0 Refill(s) ciprofloxac Yes 500 mg = 1 Memoria in 500 mg -14 tab, PO, l oral tablet 17:22: Q12H, X 14 Gav[place] day, # 28 tab, 0 Refill(s) Diphenhydra No Notes: Desmond chitra mine 05-30 (Same as: l 21:13: Benadryl) Naloxone No Notes: Memoria 05-30 Same as l 21:13: Narcan Flumazenil No Notes: Memor ia 05-30 (Same as: l 21:13: Romazicon) Morphine No Notes: Memoria 05-30 (Same l 21:13: as:MORPhin e Sulfate) Fentanyl No Notes: Memoria 05-30 (Same as: l 21:13: Sublimaze) Preservat phu free. Meperidine No Notes: Memor ia 05-30 (Same as: l 21:13: Demerol) "Use Precaution in Elderly, Seizure disorders, and Renal impairment " Ondansetron No Notes: Desmond chitra 05-30 (Same as: l 21:13: Zofran) MEDICATION WASTE Product Size: 4 mg Product Wasted: ___ mg Oxycodone No Notes: Memori a 05-30 (Same as: l 21:13: Roxicodone ) Acetaminoph No Notes: Desmond chitra en 05-30 Infuse l 21:13: over 15 minutes Do not exceed 4gm/day of acetaminop hen MEDICATION WASTE Product Size: 1000 mg Product Wasted: ___ mg Calcium No 1,000 mL, Memor ia Chloride 05-30 Rate: 125 l 0.0014 21:13: ml/hr, MEQ/ML / 00 Infuse Potassium over: 8 Chloride hr, Route: 0.004 IV, Dosing MEQ/ML / Weight Sodium 86.364 kg, Chloride Total 0.103 Volume: MEQ/ML / 1,000, Sodium Start Lactate date: 0.028 05/30/15 MEQ/ML 16:13:00, Injectable Duration: Solution 30 day, Stop date: 06/29/15 16:12:00 Lactated No 1,000 mL, Desmond chitra Ringers IV 05-30 Rate: 25 l 1,000 mL 21:02: ml/hr, Infuse over: 40 hr, Route: IV, Dosing Weight 86.364 kg, Total Volume: 1,000, Start date: 05/30/15 16:02:00, Duration: 30 day, Stop date: 06/29/15 16:01:00 Invanz No Notes: Memoria 05-30 (Same as: l 20:00: INVanz) Refrigerat e. NOT COMPATIBLE WITH D5W. Stable in refrigerat or for 24 hours MEDICATION WASTE Product Size: 1000 mg Product Wasted: ___ mg vancomycin 2014-0 No 2000 mg: Me moria 7-13 infuse l 18:00: over 2.5 Gav[place] 00 hours magnesium 2015-0 No 1 gm, 50 Desmond chitra sulfate 7-13 mL, Route: l 16:00: IVPB, Drug form: INJ, ONCE, Start date: 05/30/15 11:00:00, Stop date: 05/30/15 11:00:00 Vancomycin 2015-0 No 1 gm, Memori a 7- Route: l 16:00: IVPB, Drug form: INJ, [id number], Dosing Weight 86.364, kg, Start date: 05/30/15 11:00:00, Duration: 30 day, Stop date: 06/28/15 23:00:00 magnesium 2015-0 No 50 mL, Memori a sulfate 7 Rate: 25 l 13:00: ml/hr, Gav[place] 00 Infuse over: 2 hr, Route: IVPB, Total Volume: 50, Start date: 05/30/15 8:00:00, Stop date: 05/30/15 8:00:00 Magnesium 2015-0 No 3 gm, Memoria Sulfate 7- Route: IV, l 12:14: ONCE, Dosing Weight 86.364, kg, Priority: STAT, Start date: 05/30/15 7:14:00, Stop date: 05/30/15 7:14:00 Potassium 2014-0 No Notes: Memori a Chloride 7-12 (Same as: l 1.33 MEQ/ML 16:20: Potassium H ermann Oral 00 Chloride) Solution Santyl 2014-0 No Notes: Memoria 7-10 (Same As: l 14:00: Santyl) [place] 00 Sodium 2015-0 No 1,000 mL, Memori a Chloride 7-09 Rate: 100 l 0.154 23:51: ml/hr, [place] MEQ/ML 00 Infuse Injectable over: 10 Solution hr, Route: IV, Dosing Weight 86.364 kg, Total Volume: 1,000, Start date: 05/26/15 18:51:00, Duration: 30 day, Stop date: 06/25/15 18:50:00 24 HR No Notes: Memoria Nifedipine 7-08 (Same as: l 90 MG 14:00: Procardia [place] Extended 00 XL) "Do Release Not Crush" Tablet "Avoid grapefruit and grapefruit juice" Zosyn + No Notes: Memoria Sodium 7- (Same as: l Chloride 21:00: Zosyn) [place] 0.9% IV 100 00 Dosing mL based on Piperacill in component MEDICATION WASTE Product Size: 3375 mg Product Wasted: ___ mg Omnipaque No Notes: Memori a 300 7- (Same l 18:23: as:Omnipaq [place] 00 ue 300). Hydralazine No Notes: Desmond chitra 7- (Same as: l 17:00: Apresoline [place] 00 ) May interfere w/enteral feedings Take With Food. Flagyl No Notes: Memoria 7- (Same as: l 16:00: Flagyl) [place] 00 Take with food/ avoid alcohol Benadryl No 25 mg, 1 Memor ia - tab, l 07:03: Route: PO, [place] 00 Drug form: TAB, ONCE, Dosing Weight 86.364, kg, PRN Insomnia, Start date: 05/24/15 2:03:00, Stop date: 06/23/15 2:02:00 Hydralazine No Notes: Desmond chitra 7- (Same as: l 17:00: Apresoline [place] ) May interfere w/enteral feedings. Take With Food 24 HR No Notes: Memoria Nifedipine - (Same as: l 60 MG 14:00: Procardia [place] Extended 00 XL) "Do Release Not Crush" Tablet "Avoid grapefruit and grapefruit juice" Lisinopril No Notes: Memor ia 7- (Same as: l 14:00: Prinivil, [place] 00 Zestril) Acetaminoph No Notes: Desmond chitra en 325 MG / - (Same as: l Hydrocodone 17:27: Hixson Ruby nn Bitartrate 00 325/5) Do 5 MG Oral not exceed Tablet 4gm/day of [Hixson acetaminop 5/325] hen. Hydralazine No Notes: Desmond chitra Hydrochlori -05 (Same as: l de 10 MG 17:26: Apresoline Her leonardo Oral Tablet 00 ) Push over 5 minutes Hydralazine No Notes: Desmond chitra - (Same as: l 17:00: Apresoline [place] 00 ) May interfere w/enteral feedings. Take With Food Insulin, No Notes: Memoria Aspart, 05-22 Roll in l Human 16:30: palms of [place] 00 hands gently; Do not shake vigorously . (Same as: NovoLOG) "single patient use only" Stable for 28 days at room temperatur e. Expires in days from ____Date Lisinopril No Notes: Memor ia 05-20 (Same as: l 14:00: Prinivil, [place] 00 Zestril) Trazodone No Notes: Memori a Hydrochlori 05-20 (Same As: l de 100 MG 04:38: Desyrel) Herm allison Oral Tablet 00 insulin No Notes: Memoria detemir 05-20 Same as l 02:00: Levemir Do [place] 00 not hold insulin without contacting prescriber "single patient use only" Insulin, No Notes: Memoria Aspart, 05-19 Roll in l Human 16:30: palms of [place] 00 hands gently; Do not shake vigorously . (Same as: NovoLOG) "single patient use only" Stable for 28 days at room temperatur e. Expires in days from ____Date Sodium No 1,000 mL, Memori a Chloride 05-19 Rate: l 0.154 16:28: Titrate, [place] MEQ/ML 00 Dosing Injectable Weight Solution 86.364, kg, Route: IV, Total Volume: 1,000, Start Date: 05/19/15 11:28:00, Duration: 30 day, Stop date: 06/18/15 11:27:00, Replace Every: 24 hr Insulin, No Notes: Memoria Aspart, 05-19 Roll in l Human 15:26: palms of [place] 00 hands gently; Do not shake vigorously . (Same as: NovoLOG) "single patient use only" Stable for 28 days at room temperatur e. Expires in days from ____Date Dextrose No 25 gm, 50 Desmond chitra 50% Syringe 05-19 mL, Route: l 15:26: IVP, Drug Form: INJ, Dosing Weight 86.364, kg, PRN, PRN Blood Glucose Results, Start date: 05/19/15 10:26:00, Duration: 30 day, Stop date: 06/18/15 10:25:00 Glucagon No 1 mg, Memoria 05-19 Route: IM, l 15:26: Drug form: [place] 00 PDR/INJ, PRN, Dosing Weight 86.364, kg, PRN Blood Glucose Results, Start date: 05/19/15 10:26:00, Duration: 30 day, Stop date: 06/18/15 10:25:00 Kayexalate No Notes: Memor ia 05-19 (sodium l 13:54: polystyren e sulfonate 15 gm/60 ml GENESIS) Shake well before use. (Same as: Kayexalate , SPS) fat No Notes: Memoria emulsion, 05-19 (Same as: l intravenous 02:00: Intralipid , Liposyn) vancomycin No 2000 mg: Me moria 05-18 infuse l 19:00: over 2.5 [place] 00 hours Bisacodyl No Notes: Memori a 05-18 (Same As: l 17:19: Dulcolax, [place] 00 Bisco-Lax) Amino Acids No Notes: Desmond chitra 4.25% with 05-18 Same as: l 5% Dextrose 16:43: ClinimixE H ermann and 00 Electrolyte s (Clinimix E Sulfite-Marito e) 2,000 mL Dulcolax No Notes: Memoria Laxative 05-18 (Same As: l 16:42: Dulcolax, [place] 00 Bisco-Lax) Vancomycin No 1 gm, Memori a 05-18 Route: l 16:38: IVPB, Drug form: INJ, [id number], Dosing Weight 86.364, kg, Priority: NOW, Start date: 05/18/15 11:38:00, Duration: 30 day, Stop date: 06/16/15 23:38:00 Magnesium No 2 gm, 50 Desmond chitra Sulfate 05-18 mL, Route: l 14:19: IVPB, Drug form: INJ, ONCE, Dosing Weight 86.364, kg, Total dose = 2 gm, Start date: 05/18/15 9:19:00, Duration: 1 doses or times, Stop date: 05/18/15 9:19:00 digoxin 125 No Notes: Desmond chitra mcg (0.125 05-18 Take on an l mg) oral 14:00: Empty [place] tablet 00 Stomach (Same as: Lanoxin) 24 HR No Notes: Memoria Nifedipine 05-18 (Same as: l 30 MG 14:00: Procardia [place] Extended 00 XL) "Do Release Not Crush" Tablet "Avoid [Procardia] grapefruit and grapefruit juice" Lisinopril No Notes: Memor ia 05-18 (Same as: l 14:00: Prinivil, [place] 00 Zestril) gabapentin No Notes: Memor ia 400 MG Oral 05-18 (Same as: l Capsule 14:00: Neurontin) Herm allison Vancomycin No 2001 mg: Me moria 05-18 infuse l 05:27: over 2.5 [place] 00 hours gabapentin No Notes: Memor ia 400 MG Oral 05-18 (Same as: l Capsule 02:00: Neurontin) Herm allison Flecainide No Notes: Memor ia 7 (Same as: l 02:00: Tambocor) G[place] Mirtazapine No Notes: Desmond chitra 7 (Same l 02:00: as:Remeron ) Aspirin 325 No Notes: Desmond chitra MG Oral 6-30 Take with l Tablet 23:08: food. [place] 00 Dulcolax No Notes: Memoria Laxative 6-30 (Same As: l 23:02: Dulcolax, [place] 00 Bisco-Lax) Amino Acids No Notes: Desmond chitra 5% with 15% 6-30 Same as: l Dextrose 23:00: Clinimix E Her leonardo and 00 04/01 Electrolyte Standard s (Clinimix electrolyt E es for Sulfite-Marito this e) 2,000 mL formulatio n listed on bag pantoprazol No Notes: Desmond chitra e 6-30 Tablet l 21:30: should not [place] 00 be chewed or crushed. (Same as: Protonix) Amino Acids No 1,000 mL, M emoria 5% with 15% 6-30 Rate: 90 l Dextrose 18:19: ml/hr, Gav[place] and Infuse Electrolyte over: 11.1 s (Clinimix hr, Route: E IVPB, Sulfite-Marito Dosing e) 1000 mL Weight 86.364 kg, Total Volume: 1,000 mL, Start date: 05/17/15 13:19:00, Duration: 30 day, Stop date: 06/16/15 13:18:00 gabapentin Yes 400 mg = 1 M emoria 400 MG Oral 6-30 cap, PO, l Capsule 14:34: QAM, 0 [place] 00 Refill(s) Bisacodyl Yes 10 mg = 1 Mem oria 10 MG 6-30 supp, MN, l Rectal 14:34: Q12H, PRN Saúl n Suppository 00 Constipati [Dulcolax] on, # 10 supp, 0 Refill(s) senna 8.6 Yes 17.2 mg = Mem oria mg oral 6-30 2 tab, PO, l tablet 14:34: Bedtime, [place] 00 PRN Constipati on, # 20 tab, 0 Refill(s) digoxin 125 Yes 125 Memori a mcg (0.125 6-30 microgram l mg) oral 14:34: = 1 tab, Ruby nn tablet 00 PO, QAM, # 30 tab, 0 Refill(s) Clinimix E No Special Desmond chitra Sulfite-Marito 6-30 Instructio l e 5% with 14:34: ns: use 90 He rmann 15% 00 ml/hr IV Dextrose Q24H and Electrolyte s Aspirin 325 Yes 325 mg = 1 Memoria MG Oral 6-30 tab, PO, l Tablet 14:34: QPM, 0 [place] 00 Refill(s) Ciprofloxac No Special Mem oria in 500 MG 6-30 Instructio l Oral Tablet 14:34: ns: for Her leonardo [Cipro] 00 UTI Acetaminoph Yes 650 mg = 2 Memoria en 325 MG 6-30 tab, PO, l Oral Tablet 14:34: Q6H, PRN He rmann [Tylenol] 00 Pain Score 1-5, # 120 tab, 0 Refill(s) lisinopril No Special Desmond chitra 10 mg oral 6-30 Instructio l tablet 14:34: ns: Hold [place] 00 for SBP <110 tramadol Yes 50 mg = 1 Desmond chitra hydrochlori 6-30 tab, PO, l de 50 MG 14:34: Q6H, PRN Ruby nn Oral Tablet 00 Pain Score 7-10, # 40 tab, 0 Refill(s) EGG YOLK No Special Memori a PHOSPHOLIPI 6-30 Instructio l DS 12 MG/ML 14:34: ns: Infuse [place] / Glycerin 00 over 8 22.5 MG/ML hours / Soybean Oil 200 MG/ML Injectable Suspension 24 HR No 30 mg = 1 Memoria Nifedipine 6-30 tab, PO, l 30 MG 14:34: QAM, # 30 [place] Extended 00 tab, 0 Release Refill(s) Tablet [Procardia] flecainide Yes 75 mg = Desmond chitra 150 mg oral 6-30 0.5 tab, l tablet 14:34: PO, Q12H, Saúl n 00 0 Refill(s) temazepam Yes 15 mg = 1 Mem oria 15 mg oral 6-30 cap, PO, l capsule 14:34: Bedtime, Saúl n 00 PRN Sleep, 0 Refill(s) Omeprazole Yes 40 mg = 1 Me moria 40 MG 6-30 cap, PO, l Enteric 14:34: QAM, # 30 Ruby nn Coated 00 cap, 0 Capsule Refill(s) [Prilosec] tamsulosin Yes 0.4 mg = 1 M emoria 0.4 mg oral 6-30 cap, PO, l capsule 14:34: Bedtime, # Herm allison 00 30 cap, 0 Refill(s) Zosyn No Notes: Memoria 6-30 Infuse l 10:00: over 4 [place] 00 hours. (same as: Zosyn) Enoxaparin No Notes: Memor ia 6-30 (Same as: l 10:00: Lovenox) [place] 00 Phenergan No Notes: Do Mem oria 6-30 not give l 09:44: IV push. [place] 00 (Same as: Phenergan) Zofran No Notes: Memoria 6-30 (Same as: l 09:44: Zofran) [place] 00 MEDICATION WASTE Product Size: 4 mg Product Wasted: ___ mg Saline No Notes: Memoria Flush 0.9% 05-17 (Same as: l 03:18: BD Posiflush) Ondansetron No Notes: Desmond chitra 6-30 (Same as: l 03:18: Zofran) MEDICATION WASTE Product Size: 4 mg Product Wasted: ___ mg Acetaminoph No Notes: Do M emoria en 6-30 not exceed l 03:18: 4 gm/day. 00 (Same as: Tylenol) Sodium No 1,000 mL, Memori a Chloride 30 Rate: 100 l 0.154 03:18: ml/hr, [place] MEQ/ML 00 Infuse Injectable over: 10 Solution hr, Route: IV, Dosing Weight 86.364 kg, Total Volume: 1,000, Start date: 05/16/15 22:18:00, Stop date: 05/17/15 21:00:00 Morphine No Notes: Memoria 6-30 (Same l 03:18: as:MORPhin 00 e Sulfate) Zosyn No Notes: Memoria 6-30 Infuse l 02:54: over 4 [place] 00 hours. (same as: Zosyn) Omnipaque No Notes: Memori a 300 6-30 (Same l 01:13: as:Omnipaq [place] 00 ue 300). Saline No Notes: Memoria Flush 0.9% 05-16 (Same as: l 21:41: BD [place] 00 Posiflush) Amino Acids No Notes: Desmond chitra 5% with 15% 04-27 Same as: l Dextrose 14:53: Clinimix E Her leonardo and 00 04/01 Electrolyte Standard s (Clinimix electrolyt E es for Sulfite-Marito this e) 2,000 mL formulatio n listed on bag octreotide Yes 100 Memoria 100 mcg/mL 6-08 microgram, l injectable 15:19: SUB-Q, Ruby nn solution 00 TID, X 10 day, # 30 mL, 0 Refill(s) pantoprazol Yes 40 mg = 1 M emoria e 40 MG 6-08 tab, PO, l Enteric 15:19: Daily, # Saúl n Coated 00 90 tab, 0 Tablet Refill(s) [Protonix] Amino Acids No Notes: Desmond chitra 4.25% with 6-07 Same as: l 5% Dextrose 22:00: Clinimix He rmann (Clinimix 00 Sulfite-Marito e) 2000 mL Amino Acids No Notes: Desmond chitra 4.25% with 6-07 Same as: l 5% Dextrose 22:00: Clinimix He rmann (Clinimix 00 Sulfite-Marito e) 1000 mL octreotide Yes 100 Memoria 100 mcg/mL 6-04 microgram l injectable 21:20: = 1 mL, Herm allison solution 00 SUB-Q, Q8H, 0 Refill(s) 24 HR Yes 30 mg = 1 Memoria Nifedipine 6-04 tab, PO, l 30 MG 21:20: Daily, # [place] Extended 00 30 tab, 0 Release Refill(s) Tablet [Procardia] tamsulosin Yes 0.4 mg = 1 M emoria 0.4 mg oral 6-04 cap, PO, l capsule 21:20: After [place] 00 Breakfast, # 30 cap, 0 Refill(s) Sodium No 250 mL, Memoria Chloride 6 Rate: On l 0.9% 02:05: call for [place] (titrate) 00 use with 250 mL blood product administra tion, Dosing Weight 104.545, kg, Route: IV, Total Volume: 250, Start Date: 04/20/15 21:05:00, Duration: 30 day, Stop date: 05/20/15 21:04:00, Replace Every: 24 hr Lasix No Notes: Memoria 6-01 (Same as: l 17:09: Lasix) [place] MEDICATION WASTE Product Size: 40 mg Product Wasted: ___ mg Omeprazole No 40 mg, Memor ia 5-31 Route: PO, l 14:00: Drug form: [place] DRC, Daily, Dosing Weight 104.545, kg, Start date: 04/17/15 9:00:00, Duration: 30 day, Stop date: 05/16/15 9:00:00 Protonix No Notes: Memoria 5-31 Tablet l 14:00: should not [place]av[place] be chewed or crushed. (Same as: Protonix) gabapentin No Notes: Memor ia 400 MG Oral 5-31 (Same as: l Capsule 14:00: Neurontin) Herm allison 00 digoxin 125 No Notes: Desmond chitra mcg (0.125 5-31 Take on an l mg) oral 14:00: Empty [place] tablet 00 Stomach (Same as: Lanoxin) metoprolol No Notes: Memor ia tartrate 5-31 (Same as: l 02:00: Lopressor) gabapentin No Notes: Memor ia 400 MG Oral 5-31 (Same as: l Capsule 02:00: Neurontin) Herm allison Flecainide No Notes: Memor ia 5-31 (Same as: l 02:00: Tambocor) [place] 00 Lisinopril No Notes: Memor ia 5-30 (Same as: l 22:00: Prinivil, [place] Zestril) Hydralazine No Notes: Desmond chitra Hydrochlori 5-30 (Same as: l de 25 MG 18:00: Apresoline Her leonardo Oral Tablet 00 ) May interfere w/enteral feedings Take With Food. 24 HR No Notes: Memoria Nifedipine 5-30 (Same as: l 30 MG 17:24: Procardia [place] Extended 00 XL) "Do Release Not Crush" Tablet "Avoid [Procardia] grapefruit and grapefruit juice" Lisinopril No Notes: Memor ia 5-30 (Same as: l 03:11: Prinivil, [place] 00 Zestril) Sodium No 250 mL, Memoria Chloride 5-29 Rate: On l 0.9% 17:09: call for [place] (titrate) 00 use with 250 mL blood product administra tion, Dosing Weight 104.545, kg, Route: IV, Total Volume: 250, Start Date: 04/15/15 12:09:00, Duration: 30 day, Stop date: 05/15/15 12:08:00, Replace Every: 24 hr Ofirmev No Notes: Memoria 5-29 Infuse l 14:00: over 15 Gavino 00 minutes Do not exceed 4gm/day of acetaminop hen MEDICATION WASTE Product Size: 1000 mg Product Wasted: ___ mg Dilaudid No Notes: Memoria 5-28 (Same as: l 23:47: Dilaudid) Gavino 00 Restoril No Notes: Memoria 5-28 (Same As: l 02:16: Restoril) Gavino 00 Maalox No Notes: Memoria Advanced 5-28 (aluminum l Regular 01:45: hydroxide- Herm allison Strength 00 magnesium SUSP hyd-simeth icone 200-200-20 mg/5ml 30 ml ud GENESIS) Acetaminoph No Notes: Do M emoria en 325 MG / 5-28 not exceed l Hydrocodone 01:45: 4gm/day of [place] Bitartrate 00 acetaminop 10 MG Oral hen. Tablet (Same as: [Hixson Hixson 10/325] 325/10) Hydralazine No Notes: Desmond chitra 5-27 (Same as: l 23:00: Apresoline [place] 00 ) Push over 5 minutes 168 HR No Notes: Memoria Clonidine 5-27 Patch l 0.28401 14:00: delivers Saúl n MG/HR 00 0.2 mg/24 Transdermal hours; Patch Patch is applied weekly. "Remove old patch before applicatio n of new patch" (Same As: Catapres-T TS-2) tamsulosin No Notes: Memor ia -26 (Same As: l 18:41: Flomax) "Do Not Crush" Hydralazine No Notes: Desmond chitra -26 (Same as: l 17:00: Apresoline ) Push over 5 minutes Hydromorpho No Notes: Desmond chitra ne - (Same as: l 15:00: Dilaudid) conc = 0.5 mg/ml Hydromorph one LINE DECORATOR Dose: ;Delay: ;Basal: Acetaminoph No Notes: Desmond chitra en -24 Infuse l 18:57: over 15 minutes Do not exceed 4gm/day of acetaminop hen MEDICATION WASTE Product Size: 1000 mg Product Wasted: ___ mg Lopressor No Notes: Memori a 5-24 (Same as: l 16:34: Lopressor) Push over 2 minutes Labetalol No Notes: Memori a 5-24 (Same as: l 12:36: Normodyne, Trandate) Push over 2 minutes Give bolus over 2-3 minutes. Hydralazine No Notes: Desmond chitra 5-24 (Same as: l 12:34: Apresoline ) Push over 5 minutes Vancomycin No Notes: Memor ia 5-23 TIME l 16:19: CRITICAL MEDICATION fat No Notes: Mem[facility] emulsion, 5-23 (Same as: l intravenous 02:00: Intralipid , Liposyn) Amino Acids No Notes: Desmond chitra 5% with 15% 5-23 Same as: l Dextrose 02:00: Clinimix Ruby nn (Clinimix 00 Sulfite-Marito e) 2,000 mL Amino Acids No Notes: Desmond chitra 5% with 15% 5-23 Same as: l Dextrose 02:00: Clinimix E Her leonardo and 00 04/01 Electrolyte Standard s (Clinimix electrolyt E es for Sulfite-Marito this e) 2,000 mL formulatio n listed on bag lidocaine No Notes: Memori a 1% 04-09 Preservati l 00:00: ve free. [place] 00 (Same as: Xylocaine MPF) Amino Acids No 2,000 mL, M emoria 5% with 15% 04-08 Rate: 90 l Dextrose 19:53: ml/hr, [place] and 00 Infuse Electrolyte over: 22.2 s (Clinimix hr, Route: E IVPB, Sulfite-Marito Dosing e) 2000 mL Weight 104.545 kg, Total Volume: 2,000 mL, Start date: 04/08/15 14:53:00, Duration: 30 day, Stop date: 05/08/15 14:52:00 NS 1,000 mL No 1,000 mL, M emoria 04-08 Rate: 100 l 13:30: ml/hr, [place] 00 Infuse over: 10 hr, Route: IV, Dosing Weight 104.545 kg, Total Volume: 1,000, Start date: 04/08/15 8:30:00, Stop date: 04/08/15 21:00:00 Sodium No 1,000 mL, Memori a Chloride 04-08 1,000 l 0.154 13:30: ml/hr, [place] MEQ/ML 00 Infuse Injectable Over: 1 Solution hr, Route: IV, 1,000, Drug form: INJ, ONCE, Priority: STAT, Dosing Weight 104.545 kg, Start date: 04/08/15 8:30:00, Duration: 1 doses or times, Stop date: 04/08/15 8:30:00 Calcium No Notes: [facility] Carbonate 04-08 (Same As: l 500 MG 13:12: Tums) [place] Chewable 00 Calcium Tablet Carbonate 500 mg = 200 mg elemental calcium Dose = mg calcium carbonate ( mg elemental calcium) Calcium No Special [facility] Gluconate 04-08 Instructio l 13:12: ns: FOR [place] 00 ICU USE ONLY Magnesium No Notes: Memori a Oxide 04-08 (Same as: l 13:12: Mag-Ox [place] 00 400) Magnesium oxide [id number] g elemental magnesium Dose=____m g magnesium oxide (___mg elemental magnesium) potassium No Notes: Memori a chloride 5-22 Infuse at l 13:12: a rate of [place] 00 10 mEq/hr. (Same as: KCL) potassium No Notes: Memori a phosphate + 5-22 (Same as: l Sodium 13:12: K [place] Chloride 00 Phosphate. 0.9% IV 250 ) 1 mMol mL phoshate has 1.47 mEq potassium Infuse over 4 hours Magnesium No Special [facility] ia Sulfate -22 Instructio l 13:12: ns: FOR [place] ICU USE ONLY Neutra-Phos No Notes: Desmond chitra 5-22 Same as: l 13:12: Phos-Nak [place] Mix 1 packet with 75 mL water or juice. Each packet has 160mg of sodium, 280mg of potassium, and 250mg of phosphorus Non-Formu souleymane Item sodium No Special [facility] phosphate + 5-22 Instructio l Sodium 13:12: ns: FOR [place] Chloride ICU USE 0.9% IV 250 ONLY mL Magnesium No 2 gm, 50 Desmond chitra Sulfate 5-22 mL, Route: l 04:33: IVPB, Drug form: INJ, ONCE, Dosing Weight 104.545, kg, Start date: 04/07/15 23:33:00, Duration: 2 hr, Stop date: 04/07/15 23:33:00 Lasix No Notes: [facility] 5-22 (Same as: l 03:17: Lasix) MEDICATION WASTE Product Size: 40 mg Product Wasted: ___ mg Calcium No Notes: [facility] Gluconate 5-22 Always l 03:16: ordered as [place] 00 ___ mEq per 100ml - Send 1 syringe for each 100ml - MUST be diluted prior to administra tion. Add to 100ml of IV fluids. . sodium No Notes: [facility] bicarbonate -22 (sodium l 8.4% 01:08: bicarb [place] additive 00 8.4% (1 150 mEq + mEq/ml) 50 D5W 850 mL ml VL) Fluconazole No Notes: Desmond chitra 04-07 (Same as: l 22:00: Diflucan) [place] 00 Do not refrigerat e heparin No Notes: [facility] - porcine l 21:00: heparin Octreotide No Notes: [facility] ia 04-07 (Same As: l 21:00: SandoSTATI N). Refrigerat e. MEDICATION WASTE Product Size: 100 microgram Product Wasted: ___ microgram sodium No Notes: [facility] bicarbonate 04-07 (sodium l 8.4% 14:21: bicarb [place] additive 00 8.4% (1 150 mEq + mEq/ml) 50 D5W 1,000 ml VL) mL Calcium No 1,000 mg, [facility] Gluconate 04-07 Route: l 14:05: IVPB, Drug form: INJ, ONCE, Dosing Weight 104.545, kg, Start date: 04/07/15 9:05:00, Stop date: 04/07/15 9:05:00 Zosyn No Notes: [facility] 04-07 (Same as: l 14:00: Zosyn) Dosing based on Piperacill in component MEDICATION WASTE Product Size: 3375 mg Product Wasted: ___ mg normal No 1,000 mL, Memori a saline 0.9% 04-07 Rate: 150 l IV 1,000 mL 13:48: ml/hr, Herm Infuse over: 6.7 hr, Route: IV, Dosing Weight 104.545 kg, Total Volume: 1,000, Start date: 04/07/15 8:48:00, Duration: 30 day, Stop date: 05/07/15 8:47:00 NS 1,000 mL No 1,000 mL, M emoria 04-07 Rate: 100 l 12:42: ml/hr, [place] 00 Infuse over: 10 hr, Route: IV, Dosing Weight 104.545 kg, Total Volume: 1,000, Start date: 04/07/15 7:42:00, Duration: 30 day, Stop date: 05/07/15 7:41:00 Protonix No 40 mg, [facility] 5-21 Route: l 12:30: IVP, [place] 00 Before Breakfast, Dosing Weight 104.545, kg, Start date: 04/07/15 7:30:00, Duration: 30 day, Stop date: 05/06/15 7:30:00 Protonix No Notes: For Mem oria 5-20 IV push l 22:00: reconstitu [place] 00 te with 10 ml 0.9% sodium chloride and push over 2 minutes. (Same as: Protonix) azelastine No 1 spray, Mem oria nasal 0.1% 5-20 NASAL, l (137 21:22: Daily, 0 [place] mcg/inh) 00 Refill(s) spray tramadol No 50 mg = 1 Desmond chitra hydrochlori 5-20 tab, PO, l de 50 MG 21:21: Q6H, PRN Ruby nn Oral Tablet 00 foot pain, # 40 tab, 0 Refill(s) ondansetron No 4 mg = 1 Me moria 4 mg oral 5-20 tab, PO, l tablet 21:13: TID, PRN [place] 00 as needed for nausea/vom iting, # 3 tab, 0 Refill(s) Metronidazo No 500 mg = 1 Memoria le 500 MG 5-20 tab, PO, l Oral Tablet 21:13: Q8H, # 21 H ermann 00 tab, 0 Refill(s) omeprazole Yes Special Desmond chitra 40 mg oral 5-20 Instructio l delayed 21:13: ns: before Herm allison release 00 a meal capsule gabapentin Yes 1,200 mg = M emoria 400 MG Oral 5-20 3 cap, PO, l Capsule 21:13: Bedtime, # Herm allison 00 120 cap, 0 Refill(s) Acetaminoph Yes 100.4 F, M emoria en 325 MG / 5-20 # 30 tab, l Hydrocodone 21:13: 0 Saúl n Bitartrate 00 Refill(s) 5 MG Oral Tablet [Hixson 5/325] Hydralazine Yes 25 mg = 1 M emoria Hydrochlori 5-20 tab, PO, l de 25 MG 21:13: TID, PRN Ruby nn Oral Tablet 00 blood pressure, # 120 tab, 0 Refill(s) ciprofloxac No 500 mg = 1 [facility] in 500 mg 5-20 tab, PO, l oral tablet 21:13: Q12H, # 14 [place] 00 tab, 0 Refill(s) Hydromorpho No Notes: Desmond chitra ne 5-20 (Same as: l 21:00: Dilaudid) conc = 0.5 mg/ml Hydromorph one LINE DECORATOR Dose: ;Delay: ;Basal: Diflucan No Notes: [facility] 5-20 (Same as: l 21:00: Diflucan) vancomycin No 2001 mg: Me moria 5-20 infuse l 21:00: over 2.5 hours Naloxone No Notes: [facility] 5-20 Same as l 20:40: Narcan Vancomycin No 1 gm, Memori a 5-20 Route: l 20:00: IVPB, Drug form: INJ, ABXQ8H, Dosing Weight 104.545, kg, Start date: 04/06/15 15:00:00, Duration: 30 day, Stop date: 05/06/15 7:00:00 LR IV 1,000 No 1,000 mL, M emoria mL 5-20 Rate: 125 l 19:10: ml/hr, Infuse over: 8 hr, Route: IV, Dosing Weight 104.545 kg, Total Volume: 1,000, Start date: 04/06/15 14:10:00, Duration: 30 day, Stop date: 05/06/15 14:09:00 Lactated No 1,000 mL, Desmond chitra Ringers IV 5-20 Rate: 25 l 1,000 mL 15:57: ml/hr, Infuse over: 40 hr, Route: IV, Dosing Weight 104.545 kg, Total Volume: 1,000, Start date: 04/06/15 10:57:00, Duration: 30 day, Stop date: 05/06/15 10:56:00 Cipro No Notes: Do [facility] 5-20 not l 14:00: refrigerat e Docusate No Notes: [facility] 5-20 (Same as: l 14:00: Colace) [place] 00 (Do Not Crush) Ondansetron No Notes: Desmond chitra 5-20 (Same as: l 14:00: Zofran) MEDICATION WASTE Product Size: 4 mg Product Wasted: ___ mg Morphine No Notes: [facility] 5-20 (Same l 14:00: as:MORPhin e Sulfate) Acetaminoph No Notes: Desmond chitra en 325 MG / 5-20 (Same as: l Hydrocodone 14:00: Hixson Ruby nn Bitartrate 00 325/5) Do 5 MG Oral not exceed Tablet 4gm/day of acetaminop hen. Acetaminoph No Notes: Do M emoria en 5-20 not exceed l 14:00: 4 gm/day. [place] 00 (Same as: Tylenol) Saline No Notes: [facility] Flush 0.9% 5-20 (Same as: l 14:00: BD Posiflush) Lactated No 1,000 mL, Desmond chitra Ringers IV 5-20 Rate: 125 l 1,000 mL 14:00: ml/hr, 00 Infuse over: 8 hr, Route: IV, Dosing Weight 104.545 kg, Total Volume: 1,000, Start date: 04/06/15 9:00:00, Duration: 30 day, Stop date: 05/06/15 8:59:00 Protonix No Notes: For Mem oria 5-20 IV push l 14:00: reconstitu te with 10 ml 0.9% sodium chloride and push over 2 minutes. (Same as: Protonix) Flagyl No Notes: [facility] 5-20 (Same as: l 14:00: Flagyl) Avoid alcohol. Dilaudid No Notes: [facility] 5-20 (Same as: l 13:48: Dilaudid) [place] 00 Sodium No 1,000 mL, Memori a Chloride 5-20 1,000 l 0.154 13:48: ml/hr, [place] MEQ/ML 00 Infuse Injectable Over: 1 Solution hr, Route: IV, 1,000, Drug form: INJ, ONCE, Priority: STAT, Dosing Weight 104.545 kg, Start date: 04/06/15 8:48:00, Duration: 1 doses or times, Stop date: 04/06/15 8:48:00 LR IV 1,000 2014- No 1,000 mL, M emoria mL 5-20 Rate: 125 l 13:47: ml/hr, [place] 00 Infuse over: 8 hr, Route: IV, Dosing Weight 104.545 kg, Total Volume: 1,000, Start date: 04/06/15 8:47:00, Duration: 30 day, Stop date: 05/06/15 8:46:00 Dilaudid No Notes: [facility] 5-20 (Same as: l 13:03: Dilaudid) Morphine No Notes: [facility] 5-20 (Same l 12:20: as:MORPhin [place] 00 e Sulfate) vancomycin No 2000 mg: Me moria 5-20 infuse l 11:00: over 2.5 [place] 00 hours NS 1,000 mL No Special Mem oria 5-20 Instructio l 10:38: ns: Bolus Dose Vancomycin No 1 gm, Mem[facility] a 5-20 Route: l 10:37: IVPB, Drug form: INJ, ONCE, Dosing Weight 100, kg, Priority: STAT, Start date: 04/06/15 5:37:00, Stop date: 04/06/15 5:37:00 Zosyn No Notes: [facility] 5-20 Infuse l 10:37: over 4 [place] 00 hours. (same as: Zosyn) Fentanyl No Notes: [facility] 5-20 (Same as: l 10:22: Sublimaze) Preservat phu free. Omnipaque No Notes: Memori a 300 5-20 (Same l 09:40: as:Omnipaq 00 ue 300). Morphine No Notes: [facility] 5-20 (Same l 09:05: as:MORPhin [place] 00 e Sulfate) Ondansetron No Notes: Desmond chitra 5-20 (Same as: l 09:05: Zofran) MEDICATION WASTE Product Size: 4 mg Product Wasted: ___ mg Sodium No 500 mL, [facility] Chloride 5-20 1000 l 0.154 09:05: ml/hr, [place] MEQ/ML 00 Infuse Injectable Over: 30 Solution minutes, Route: IV, 500, Drug form: INJ, ONCE, Priority: STAT, Dosing Weight 99.716 kg, Start date: 04/06/15 4:05:00, Duration: 1 doses or times, Stop date: 04/06/15 4:05:00 Ondansetron No 4 mg = 1 Me moria 4 MG Oral 5-18 tab, PO, l Tablet 14:38: TID, PRN [place] [Zofran] 00 as needed for nausea/vom iting, X 5 day, # 15 tab, 0 Refill(s) ciprofloxac No 500 mg = 1 [facility] in 500 mg 5-18 tab, PO, l oral tablet 14:22: Q12H, X 7 H ermann 00 day, # 14 tab, 0 Refill(s) Hydralazine No 160 Memori a Hydrochlori 5-18 l de 25 MG 14:22: [place] Oral Tablet 00 Acetaminoph No 1 tab, PO, Memoria en 325 MG / 5-18 Q4H, PRN l Hydrocodone 14:22: Pain Score [place] Bitartrate 00 1-3, X 5 5 MG Oral day, # 30 Tablet tab, 0 Refill(s) Metronidazo No 500 mg = 1 [facility] le 500 MG 5-18 tab, PO, l Oral Tablet 14:22: Q8H, X 7 [place] r[place] [Flagyl] 00 day, # 21 tab, 0 Refill(s) Dilaudid No Notes: [facility] 5-17 (Same as: l 14:53: Dilaudid) Hydralazine No Notes: Desmond chitra 5-17 (Same as: l 14:38: Apresoline ) May interfere w/enteral feedings Take With Food. Miralax No Notes: [facility] 5-17 Dissolve l 14:00: in 8 oz of water or juice. (Same as: Miralax) Thiamine No Notes: [facility] 5-17 (Same As: l 14:00: Vitamin B1) Lactated No 1,000 mL, Desmond chitra Ringers IV 5-17 Rate: 30 l 1,000 mL 05:10: ml/hr, Infuse over: 33.3 hr, Route: IV, Dosing Weight 99.716 kg, Total Volume: 1,000, Start date: 04/03/15 0:10:00, Duration: 30 day, Stop date: 05/03/15 0:09:00 metoprolol No Notes: Memor ia tartrate 5-17 (Same as: l 02:00: Lopressor) Amino Acids No Notes: Desmond chitra 4.25% with 5-16 Same as: l 5% Dextrose 02:00: ClinimixE H ermann and 00 Electrolyte s (Clinimix E Sulfite-Marito e) 2,000 mL Amino Acids No 2,000 mL, M emoria 4.25% with 5-15 Rate: 100 l 5% Dextrose 18:28: ml/hr, Infuse Electrolyte over: 20 s (Clinimix hr, Route: E IVPB, Sulfite-Marito Dosing e) 2000 mL Weight 99.716 kg, Total Volume: 2,000 mL, Start date: 04/01/15 13:28:00, Duration: 30 day, Stop date: 05/01/15 13:27:00 Lisinopril No Notes: Memor ia 5-15 (Same as: l 14:09: Prinivil, Zestril) Hydromorpho No Notes: Demsond chitra ne 5-14 (Same as: l 23:00: Dilaudid) conc = 0.5 mg/ml Hydromorph one LINE DECORATOR Dose: ;Delay: ;Basal: Lactated No 1,000 mL, Desmond chitra Ringers IV 5-14 Rate: 100 l 1,000 mL 22:01: ml/hr, Infuse over: 10 hr, Route: IV, Dosing Weight 99.716 kg, Total Volume: 1,000, Start date: 03/31/15 17:01:00, Duration: 30 day, Stop date: 04/30/15 17:00:00 Magnesium No 2 gm, 50 Desmond chitra Sulfate 5-14 mL, Route: l 21:43: IVPB, Drug form: INJ, ONCE, Dosing Weight 99.716, kg, Start date: 03/31/15 16:43:00, Duration: 2 hr, Stop date: 03/31/15 16:43:00 Hydralazine No Notes: Desmond chitra 5-14 (Same as: l 16:43: Apresoline ) Push over 5 minutes Lovenox No Notes: [facility] 5-14 (Same as: l 15:00: Lovenox) Flagyl No Notes: [facility] 5-14 (Same as: l 14:00: Flagyl) Avoid alcohol. Hydralazine No Notes: Desmond chitra 5-14 (Same as: l 09:04: Apresoline ) Push over 5 minutes Lopressor No Notes: Memori a 5-13 (Same as: l 23:00: Lopressor) Push over 2 minutes Thiamine No Notes: [facility] 5-13 (Same As: l 21:00: Vitamin B1) Hydromorpho No Notes: Desmond chitra ne 5-13 (Same as: l 20:00: Dilaudid) conc = 0.5 mg/ml Hydromorph one LINE DECORATOR Dose: ;Delay: ;Basal: Naloxone No Notes: [facility] 5-13 Same as l 19:44: Narcan Diphenhydra No Notes: Desmond chitra mine 5-13 (Same as: l 19:44: Benadryl) Ketorolac No 4 days Memor ia 5-13 l 19:44: MEDICATION WASTE Product Size: 30 mg Product Wasted: ___ mg Fentanyl No Notes: [facility] 5-13 (Same as: l 19:44: Sublimaze) Preservat phu free. Meperidine No Notes: Memor ia 5-13 (Same as: l 19:44: Demerol) "Use Precaution in Elderly, Seizure disorders, and Renal impairment " Hydromorpho No Notes: Desmond chitra ne 5-13 (Same as: l 19:44: Dilaudid) Flumazenil No Notes: Memor ia 5-13 (Same as: l 19:44: Romazicon) Morphine No Notes: [facility] 5-13 (Same l 19:44: as:MORPhin e Sulfate) Labetalol No Notes: Memori a 5-13 (Same as: l 19:44: Normodyne, Trandate) Push over 2 minutes Give bolus over 2-3 minutes. Oxycodone No Notes: Memori a 5-13 (Same as: l 19:44: Roxicodone ) Acetaminoph No Notes: Desmond chitra en 5-13 Infuse l 19:44: over 15 minutes Do not exceed 4gm/day of acetaminop hen MEDICATION WASTE Product Size: 1000 mg Product Wasted: ___ mg Ondansetron No Notes: Desmond chitra 5-13 (Same as: l 19:44: Zofran) MEDICATION WASTE Product Size: 4 mg Product Wasted: ___ mg Naloxone No Notes: [facility] 5-13 Same as l 19:41: Narcan Lactated No 1,000 mL, Desmond chitra Ringers IV 5-13 Rate: 125 l 1,000 mL 15:19: ml/hr, Infuse over: 8 hr, Route: IV, Dosing Weight 99.716 kg, Total Volume: 1,000, Start date: 03/30/15 10:19:00, Stop date: 03/31/15 10:18:00 Folic Acid No Notes: Memor ia 5-13 (Same as: l 14:00: Folvite) Sodium No 250 mL, [facility] Chloride 5-13 Rate: On l 0.9% 13:35: call for [place] (titrate) 00 use with 250 mL blood product administra tion, Dosing Weight 99.716, kg, Route: IV, Total Volume: 250, Start Date: 03/30/15 8:35:00, Duration: 30 day, Stop date: 04/29/15 8:34:00, Replace Every: 24 hr gabapentin No Notes: Memor ia 400 MG Oral 5-12 (Same as: l Capsule 22:00: Neurontin) Herm allison metoprolol No Notes: Memor ia tartrate -12 (Same as: l 17:00: Lopressor) Lisinopril No Notes: Memor ia 5-12 (Same as: l 17:00: Prinivil, [place] 00 Zestril) Flecainide No Notes: Memor ia 5-12 (Same as: l 17:00: Tambocor) digoxin 125 No Notes: Desmond chitra mcg (0.125 5-12 Take on an l mg) oral 17:00: Empty [place] tablet 00 Stomach (Same as: Lanoxin) digoxin 125 Yes 125 Memori a mcg (0.125 5-12 microgram l mg) oral 14:41: = 1 tab, Ruby nn tablet 00 PO, QAM, 0 Refill(s) folic acid Yes 0.4 mg = 1 M emoria 0.4 mg oral 5-12 tab, PO, l tablet 14:41: QAM, # 100 Ruby nn 00 tab, 0 Refill(s) flecainide Yes 75 mg = Desmond chitra 150 mg oral 5-12 0.5 tab, l tablet 14:41: PO, Q12H, Saúl n 00 0 Refill(s) gabapentin Yes 400 mg = 1 M emoria 400 MG Oral 5-12 cap, PO, l Capsule 14:41: QAM, 0 [place] 00 Refill(s) lisinopril Yes 10 mg = Desmond chitra 20 mg oral 5-12 0.5 tab, l tablet 14:41: PO, BID, 0 Ruby nn 00 Refill(s) Vitamin B6 Yes = 1 tab, Mem oria 5-12 PO, BID, 0 l 14:41: Refill(s) [place] 00 Metoprolol Yes 50 mg = 1 Me moria Tartrate 50 5-12 tab, PO, l mg oral 14:41: BID, # 60 Ruby nn tablet 00 tab, 0 Refill(s) Vitamin B12 Yes = 1 tab, Me moria 5-12 PO, BID, 0 l 14:41: Refill(s) [place] 00 Aspirin 325 Yes 325 mg = 1 Memoria MG Oral 5-12 tab, PO, l Tablet 14:41: QPM, 0 [place] 00 Refill(s) tramadol Yes 100 mg = 2 Mem oria hydrochlori 5-12 tab, PO, l de 50 MG 14:41: BID, 0 [place] Oral Tablet 00 Refill(s) Acetaminoph No Notes: Do M emoria en 325 MG / 5-12 not exceed l Hydrocodone 03:09: 4gm/day of [place] Bitartrate 00 acetaminop 10 MG Oral hen. Tablet (Same as: [Hixson Hixson 10/325] 325/10) Acetaminoph No 1 tab, Desmond chitra en 325 MG / 5-12 Route: PO, l Hydrocodone 01:53: Drug Form: [place] Bitartrate 00 TAB, 10 MG Oral Dosing Tablet Weight [Hixson 106.818, 10/325] kg, ONCE, STAT, Start date: 03/28/15 20:53:00, Stop date: 03/28/15 20:53:00 Docusate No Notes: [facility] 5-11 (Same as: l 22:29: Colace) [place] 00 (Do Not Crush) Acetaminoph No Notes: Desmond chitra en 325 MG / 5-11 (Same as: l Hydrocodone 22:29: Hixson Ruby nn Bitartrate 00 325/5) Do 5 MG Oral not exceed Tablet 4gm/day of acetaminop hen. Ondansetron No Notes: Desmond chitra 5-11 (Same as: l 22:29: Zofran) [place] 00 MEDICATION WASTE Product Size: 4 mg Product Wasted: ___ mg Hydromorpho No Notes: Desmond chitra ne 5-11 (Same as: l 22:29: Dilaudid) [place] 00 Saline No Notes: [facility] Flush 0.9% 5-11 (Same as: l 22:29: BD [place] 00 Posiflush) Zosyn No Notes: [facility] 5-11 Infuse l 21:00: over 4 [place] 00 hours. (same as: Zosyn) Zosyn No 3.375 gm, [facility] 5-11 Route: IV, l 20:11: Q6H, [place] 00 Dosing Weight 106.818, kg, Start date: 03/28/15 15:11:00, Duration: 30 day, Stop date: 04/27/15 12:00:00 Omnipaque No Notes: Memori a 300 5-11 (Same l 19:24: as:Omnipaq [place] 00 ue 300). normal No 500 mL, Memoria saline 0.9% 5-11 Rate: 500 l IV 500 mL 17:53: ml/hr, Saúl n 00 Infuse over: 1 hr, Route: IV, Dosing Weight 106.818 kg, Total Volume: 500, Start date: 03/28/15 12:53:00, Duration: 1 doses or times, Stop date: 03/28/15 13:52:00 Saline No Notes: [facility] Flush 0.9% 5-11 (Same as: l 17:53: BD [place] 00 Posiflush) Aspir-81 1 Aspir-81 1 No Aspir-81 1 [place] PO DAILY PO DAILY PO DAILY [facility] atorvastati atorvastati No atorvastat [place] n 40 mg n 40 mg in 40 mg da tablet TAKE tablet TAKE tablet Medical 1 TABLET BY 1 TABLET BY TAKE 1 Group MOUTH MOUTH TABLET BY EVERY DAY EVERY DAY MOUTH EVERY DAY azelastine azelastine No 1spray( Q1D azelastine [place] 0.15 % 0.15 % s) 0.15 % da (205.5 mcg) (205.5 mcg) (205.5 Medical nasal spray nasal spray mcg) nasal Group [facility] 1 spray spray every spray every [facility] 1 day by day by spray intranasal intranasal every day route. route. by intranasal route. calcium calcium No 1capsul Q1D calcium [place] carb 133 carb 133 e(s) carb 133 da mg-vitD3 mg-vitD3 mg-vitD3 Med ical 133 133 133 Group unit-mag unit-mag unit-mag amino acid amino acid amino acid chelate chelate chelate 67mg 67mg 67mg capsule capsule capsule Take 1 Take 1 Take 1 capsule capsule capsule every day every day every day by oral by oral by oral route. route. route. clonidine clonidine No clonidine [place] 0.1MG 0.1MG 0.1MG da SYSTOLIC SYSTOLIC SYSTOLIC Med ical B/P >160 B/P >160 B/P >160 Abigail up clopidogrel clopidogrel No clopidogre [place] 75 mg 75 mg l 75 mg da tablet tablet tablet [facility] clotrimazol clotrimazol No clotrimazo [place] e 1 % e 1 % le 1 % da topical topical topical Medica l cream cream cream Group Eliquis 5 Eliquis 5 No Eliquis 5 [place] mg tablet mg tablet mg tablet [facility] finasteride finasteride No finasterid [place] 5 mg tablet 5 mg tablet e 5 mg da TAKE 1 TAKE 1 tablet Medical TABLET BY TABLET BY TAKE 1 Abigail up MOUTH MOUTH TABLET BY EVERY DAY EVERY DAY MOUTH EVERY DAY Fluad Fluad No Fluad [place] 65yr 65yr 65yr Medical up(PF)45 up(PF)45 up(PF)45 Abigail up mcg(15 mcg(15 mcg(15 mcgx3)/0.5 mcgx3)/0.5 mcgx3)/0.5 mL mL mL intramuscul intramuscul intramuscu ar syringe ar syringe lar syringe folic acid folic acid No folic acid [place] 400MG Q 400MG Q 400MG Q da DAILY DAILY DAILY Medical Group furosemide furosemide No furosemide [place] 40 mg 40 mg 40 mg da tablet Take tablet Take tablet Medical 2 tablets 2 tablets Take 2 Abigail up every day every day tablets by oral by oral every day route. route. by oral route. gabapentin gabapentin No gabapentin [place] 300 mg 300 mg 300 mg da capsule capsule capsule Medica l TAKE 4 TAKE 4 TAKE 4 Group CAPSULES BY CAPSULES BY CAPSULES MOUTH MOUTH BY MOUTH TWICE DAILY TWICE DAILY TWICE DAILY hydrocodone hydrocodone No hydrocodon [place] 7.5 7.5 e 7.5 da mg-acetamin mg-acetamin mg-acetami Medical ophen 325 ophen 325 nophen 325 Group mg tablet mg tablet mg tablet TAKE ONE TAKE ONE TAKE ONE TABLET TABLET TABLET EVERY DAY EVERY DAY EVERY DAY BY ORAL BY ORAL BY ORAL ROUTE ROUTE ROUTE ibuprofen ibuprofen No ibuprofen [place] 600 mg 600 mg 600 mg da tablet Take tablet Take tablet Medical 1 tablet 3 1 tablet 3 Take 1 G roup times a day times a day tablet 3 by oral by oral times a route. route. day by oral route. iron 1 PO iron 1 PO No iron 1 PO [place] DAILY DAILY DAILY [facility] losartan losartan No losartan [place] 100 mg 100 mg 100 mg da tablet TAKE tablet TAKE tablet Medical 1 TABLET BY 1 TABLET BY TAKE 1 Group MOUTH MOUTH TABLET BY EVERY DAY EVERY DAY MOUTH EVERY DAY meclizine meclizine No 1 BID meclizine [place] 12.5 mg 12.5 mg 12.5 mg da tablet Take tablet Take tablet Medical 1 tablet 1 tablet Take 1 Group twice a day twice a day tablet by oral by oral twice a route as route as day by needed. needed. oral route as needed. metoprolol metoprolol No metoprolol [place] tartrate 50 tartrate 50 tartrate da mg tablet mg tablet 50 mg Medi faye TAKE 1 TAKE 1 tablet Group TABLET BY TABLET BY TAKE 1 MOUTH MOUTH TABLET BY TWICE A DAY TWICE A DAY MOUTH TWICE A DAY nitroglycer nitroglycer No nitroglyce [place] in 0.4 mg in 0.4 mg rin 0.4 mg da sublingual sublingual sublingual Medical tablet tablet tablet Group Place [address] 1 tablet as tablet as tablet as needed by needed by needed by sublingual sublingual sublingual route as route as route as directed. directed. directed. pantoprazol pantoprazol No pantoprazo [place] e 40 mg e 40 mg le 40 mg da tablet,tammy tablet,tammy tablet,del Medical yed release yed release ayed G roup Take 1 Take 1 release tablet tablet Take 1 every day every day tablet by oral by oral every day route. route. by oral route. potassium potassium No potassium [place] chloride chloride chloride da 20MEQ 1 PO 20MEQ 1 PO 20MEQ 1 PO Medical DAILY DAILY DAILY Group Retacrit 20 Retacrit 20 No Retacrit [place] UNITS PER UNITS PER 20 UNITS d a LAB WORK LAB WORK PER LAB Medi faye WORK Group sucralfate sucralfate No sucralfate [place] 1 gram 1 gram 1 gram da tablet TAKE tablet TAKE tablet Medical 1 TABLET BY 1 TABLET BY TAKE 1 Group MOUTH 3 MOUTH 3 TABLET BY TIMES DAILY TIMES DAILY MOUTH 3 WITH MEALS WITH MEALS TIMES DAILY WITH MEALS temazepam temazepam No temazepam [place] 30 mg 30 mg 30 mg da capsule capsule capsule Medica l TAKE 1 TAKE 1 TAKE 1 Group CAPSULE BY CAPSULE BY CAPSULE BY MOUTH MOUTH MOUTH EVERY DAY EVERY DAY EVERY DAY Vistaril 50 Vistaril 50 No 1capsul TID Vistaril [place] mg capsule mg capsule e(s) 50 mg da Take 1 Take 1 capsule Medical capsule 3 capsule 3 Take 1 Abigail up times a day times a day capsule 3 by oral by oral times a route. use route. use day by as needed as needed oral for itching for itching route. use will cause will cause as needed drowsiness drowsiness for itching will cause drowsiness Immunizations Ordered Immunization Filled Immunization Date Status Commen ts Source Name Name influenza, high dose influenza, high dose 2019-09-11 Completed [place] seasonal seasonal 00:00:00 Medical Group pneumococcal pneumococcal 2019-06-15 Completed [place] conjugate PCV 13 conjugate PCV 13 12:50:00 Nv dical Group pneumococcal pneumococcal 2018-12-15 Completed [place] polysaccharide PPV23 polysaccharide PPV23 12:13:06 Medical Group Vital Signs Vital Name Observation Time Observation Value Comments Source BP Diastolic 2020-01-26 00:00:00 56 [facility]Hg[facility] Height 2020-01-26 00:00:00 74 [in_i] [facility] BMI (Body Mass 2020-01-26 00:00:00 25.9 kg/m2 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 BP Systolic 2020-01-26 00:00:00 131 mm[Hg] [facility] Body Weight 2020-01-26 00:00:00 3232 [oz_av] [facility] BP Diastolic 2020-01-19 00:00:00 63 mm[Hg] [facility] Height 2020-01-19 00:00:00 74 [in_i] [facility] BMI (Body Mass 2020-01-19 00:00:00 25.9 kg/m2 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) Group BP Systolic 2020-01-19 00:00:00 174 mm[Hg] [facility] Body Weight 2020-01-19 00:00:00 3232 [oz_av] [facility] BP Diastolic 2020-01-06 00:00:00 70 mm[Hg] [facility] Height 2020-01-06 00:00:00 74 [in_i] [facility] BMI (Body Mass 2020-01-06 00:00:00 25.9 kg/m2 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) Group BP Systolic 2020-01-06 00:00:00 144 mm[Hg] [facility] Body Weight 2020-01-06 00:00:00 3232 [oz_av] [facility] BP Diastolic 2019-12-30 00:00:00 65 mm[Hg] [facility] Height 2019-12-30 00:00:00 74 [in_i] [facility] BMI (Body Mass 2019-12-30 00:00:00 26.2 kg/m2 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) Group BP Systolic 2019-12-30 00:00:00 160 mm[Hg] [facility] Body Weight 2019-12-30 00:00:00 3265 [oz_av] [facility] BP Diastolic 2019-09-24 00:00:00 63 mm[Hg] [facility] Height 2019-09-24 00:00:00 74 [in_i] [facility] BMI (Body Mass 2019-09-24 00:00:00 27.2 kg/m2 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) Group BP Systolic 2019-09-24 00:00:00 185 mm[Hg] [facility] Body Weight 2019-09-24 00:00:00 3395 [oz_av] [facility] BP Diastolic 2019-08-24 00:00:00 66 mm[Hg] [facility] Height 2019-08-24 00:00:00 74 [in_i] [facility] BMI (Body Mass 2019-08-24 00:00:00 25.2 kg/m2 [facility] Medical Index) Group BP Systolic 2019-08-24 00:00:00 159 mm[Hg] [facility] Body Weight 2019-08-24 00:00:00 3136 [oz_av] [facility] BP Diastolic 2019-08-03 00:00:00 74 mm[Hg] [facility] Height 2019-08-03 00:00:00 74 [in_i] [facility] BMI (Body Mass 2019-08-03 00:00:00 24.7 kg/m2 [facility] 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) Group BP Systolic 2019-08-03 00:00:00 156 mm[Hg] [facility] Body Weight 2019-08-03 00:00:00 3072 [oz_av] [facility] BP Diastolic 2019-07-29 00:00:00 77 mm[Hg] [facility] Height 2019-07-29 00:00:00 74 [in_i] [facility] BMI (Body Mass 2019-07-29 00:00:00 25.3 kg/m2 [facility] Index) Group BP Systolic 2019-07-29 00:00:00 149 mm[Hg] [facility] Body Weight 2019-07-29 00:00:00 3152 [oz_av] [facility] BP Diastolic 2019-07-01 00:00:00 76 mm[Hg] [facility] Height 2019-07-01 00:00:00 74 [in_i] [facility] BMI (Body Mass 2019-07-01 00:00:00 26.9 kg/m2 [facility] Index) Group BP Systolic 2019-07-01 00:00:00 195 mm[Hg] [facility] Body Weight 2019-07-01 00:00:00 3347 [oz_av] [facility] BP Diastolic 2019-06-15 00:00:00 64 mm[Hg] [facility] Height 2019-06-15 00:00:00 74 [in_i] [facility] BMI (Body Mass 2019-06-15 00:00:00 26.7 kg/m2 [facility] Medical Index) Group BP Systolic 2019-06-15 00:00:00 169 mm[Hg] [facility] Body Weight 2019-06-15 00:00:00 3328 [oz_av] [facility] BP Diastolic 2019-01-13 00:00:00 70 mm[Hg] [facility] Height 2019-01-13 00:00:00 74 [in_i] [facility] BMI (Body Mass 2019-01-13 00:00:00 27 kg/m2 [facility] Medical Index) Group BP Systolic 2019-01-13 00:00:00 148 mm[Hg] [facility] Body Weight 2019-01-13 00:00:00 3360 [oz_av] [facility] BP Diastolic 2019-01-09 00:00:00 62 mm[Hg] [facility] Height 2019-01-09 00:00:00 74 [in_i] [facility] BMI (Body Mass 2019-01-09 00:00:00 27 kg/m2 [facility] Medical Index) Group BP Systolic 2019-01-09 00:00:00 152 mm[Hg] [facility] Body Weight 2019-01-09 00:00:00 3360 [oz_av] [facility] BP Diastolic 2018-12-11 00:00:00 71 mm[Hg] [facility] Height 2018-12-11 00:00:00 74 [in_i] [facility] BMI (Body Mass 2018-12-11 00:00:00 26.7 kg/m2 [facility] Medical Index) Group BP Systolic 2018-12-11 00:00:00 160 mm[Hg] [facility] Body Weight 2018-12-11 00:00:00 3328 [oz_av] [facility] Respitory Rate 2018-11-12 17:27:00 Carmel Bermudez Temperature Oral (F) 2018-11-12 17:27:00 97.9 F [facility] Heart Rate 2018-11-12 17:27:00 Catracho Mancia Systolic (mm Hg) 2018-11-12 17:27:00 Desmond [facility] [place] Diastolic (mm Hg) 2018-11-12 17:27:00 [facility] [place] Systolic (mm Hg) 2018-11-12 13:50:00 Desmond [facility] [place] Diastolic (mm Hg) 2018-11-12 13:50:00 [facility] [place] Heart Rate 2018-11-12 13:50:00 [facility] Respitory Rate 2018-11-12 13:50:00 [facility] Temperature Oral (F) 2018-11-12 13:50:00 98.5 F [facility] Respitory Rate 2018-11-12 11:44:00 [facility] Systolic (mm Hg) 2018-11-12 11:44:00 [facility] Diastolic (mm Hg) 2018-11-12 11:44:00 [facility] [place] Temperature Oral (F) 2018-11-12 11:44:00 98.9 F [facility] Heart Rate 2018-11-12 11:44:00 [facility] Height 2018-11-11 05:09:00 187.96 cm [facility] Weight 2018-11-11 05:09:00 [facility] BMI Calculated 2018-11-11 05:09:00 [facility] Systolic (mm Hg) 2018-06-04 20:10:00 [facility] Diastolic (mm Hg) 2018-06-04 20:10:00 [facility] Respitory Rate 2018-06-04 20:10:00 [facility] [place] Heart Rate 2018-06-04 20:10:00 [facility] Temperature Oral (F) 2018-06-04 20:10:00 98.0 F [facility] Temperature Oral (F) 2018-06-04 16:46:00 97.6 F [facility] Systolic (mm Hg) 2018-06-04 16:46:00 [facility]mond [facility] Diastolic (mm Hg) 2018-06-04 16:46:00 [facility] Heart Rate 2018-06-04 16:46:00 [facility] Respitory Rate 2018-06-04 16:46:00 [facility] [place] Temperature Oral (F) 2018-06-04 12:40:00 97.4 F [facility] Respitory Rate 2018-06-04 12:40:00 [facility] Heart Rate 2018-06-04 12:40:00 [facility] Systolic (mm Hg) 2018-06-04 12:40:00 [facility] Diastolic (mm Hg) 2018-06-04 12:40:00 [facility] [place] Weight 2018-06-02 11:42:00 [facility] Height 2018-06-02 11:42:00 187.96 cm [facility] BMI Calculated 2018-06-02 11:42:00 [facility] [place] Temperature Oral (F) 2018-04-13 14:11:00 98.4 F [facility] Heart Rate 2018-04-13 14:11:00 [facility] Systolic (mm Hg) 2018-04-13 14:11:00 [facility] Diastolic (mm Hg) 2018-04-13 14:11:00 [facility] Temperature Oral (F) 2018-04-13 09:10:00 97.0 F [facility] Systolic (mm Hg) 2018-04-13 09:10:00 [facility] Diastolic (mm Hg) 2018-04-13 09:10:00 [facility] Heart Rate 2018-04-13 09:10:00 [facility] Temperature Oral (F) 2018-04-13 04:28:00 97.9 F [facility] Systolic (mm Hg) 2018-04-13 04:28:00 [facility] Diastolic (mm Hg) 2018-04-13 04:28:00 [facility] [place] Heart Rate 2018-04-13 04:28:00 [facility] Respitory Rate 2018-04-12 09:01:00 [facility] [place] Respitory Rate 2018-04-12 06:09:00 [facility] Respitory Rate 2018-04-12 02:28:00 [facility] BMI Calculated 2018-04-11 23:31:00 [facility] [place] Weight 2018-04-11 23:31:00 [facility] Height 2018-04-11 23:31:00 190.5 cm [facility] Weight 2018-04-11 18:42:00 [facility] BMI Calculated 2018-04-11 18:42:00 [facility] Height 2018-04-11 18:42:00 187.96 cm [facility] Systolic (mm Hg) 2016-09-05 17:00:00 [facility] [place] Diastolic (mm Hg) 2016-09-05 17:00:00 [facility] [place] Respitory Rate 2016-09-05 17:00:00 [facility] [place] Systolic (mm Hg) 2016-09-05 16:00:00 [facility]mond [facility] [place] Diastolic (mm Hg) 2016-09-05 16:00:00 [facility] Respitory Rate 2016-09-05 16:00:00 [facility] Systolic (mm Hg) 2016-09-05 15:00:00 [facility] Diastolic (mm Hg) 2016-09-05 15:00:00 [facility] [place] Respitory Rate 2016-09-05 13:00:00 [facility] Temperature Oral (F) 2016-09-05 12:49:00 97.9 F [facility] Temperature Oral (F) 2016-09-05 09:38:00 98.0 F [facility] Height 2016-09-05 04:16:00 187.96 cm [facility] Temperature Oral (F) 2016-09-05 04:13:00 98.1 F [facility] Heart Rate 2016-09-04 17:42:00 [facility] Heart Rate 2016-09-04 13:08:00 [facility] Heart Rate 2016-09-03 12:59:00 [facility] Weight 2016-09-01 16:59:00 [facility] BMI Calculated 2016-09-01 16:59:00 [facility] [place] Height 2016-09-01 16:59:00 187.96 cm [facility] Temperature Oral (F) 2015-10-11 21:27:00 97.4 F [facility] Heart Rate 2015-10-11 21:27:00 [facility] Systolic (mm Hg) 2015-10-11 21:27:00 [facility] Diastolic (mm Hg) 2015-10-11 21:27:00 [facility] [place] Respitory Rate 2015-10-11 21:27:00 [facility] Respitory Rate 2015-10-11 17:23:00 [facility] Systolic (mm Hg) 2015-10-11 17:23:00 [facility] Diastolic (mm Hg) 2015-10-11 17:23:00 [facility] Temperature Oral (F) 2015-10-11 17:23:00 97.5 F [facility] Heart Rate 2015-10-11 17:23:00 [facility] Systolic (mm Hg) 2015-10-11 13:37:00 [facility] Diastolic (mm Hg) 2015-10-11 13:37:00 [facility] Respitory Rate 2015-10-11 13:37:00 [facility] Heart Rate 2015-10-11 13:37:00 [facility] Temperature Oral (F) 2015-10-11 13:37:00 97.7 F [facility] BMI Calculated 2015-10-06 04:30:00 [facility] [place] Weight 2015-10-06 04:30:00 [facility] Height 2015-10-06 04:30:00 187.96 cm [facility] Height 2015-10-05 23:31:00 187.96 cm [facility] BMI Calculated 2015-10-05 23:31:00 [facility] Weight 2015-10-05 23:31:00 [facility] Systolic (mm Hg) 2015-06-19 13:30:00 [facility] [place] Diastolic (mm Hg) 2015-06-19 13:30:00 [facility] Heart Rate 2015-06-19 13:30:00 [facility] Respitory Rate 2015-06-19 13:30:00 [facility] [place] Temperature Oral (F) 2015-06-19 13:30:00 98.8 F [facility] Respitory Rate 2015-06-19 09:13:00 [facility] Heart Rate 2015-06-19 09:13:00 [facility] Systolic (mm Hg) 2015-06-19 09:13:00 Desmond [facility] [place] Diastolic (mm Hg) 2015-06-19 09:13:00 [facility] [place] Respitory Rate 2015-06-19 04:23:00 [facility] Systolic (mm Hg) 2015-06-19 04:23:00 Desmond [facility] [place] Diastolic (mm Hg) 2015-06-19 04:23:00 [facility] Heart Rate 2015-06-19 04:23:00 [facility] Temperature Oral (F) 2015-06-18 17:56:00 97.5 F [facility] Temperature Oral (F) 2015-06-18 15:17:00 97.5 F [facility] Weight 2015-06-12 22:16:00 [facility] BMI Calculated 2015-06-12 22:16:00 [facility] [place] Height 2015-06-12 22:16:00 187.96 cm [facility] Weight 2015-06-12 03:00:00 [facility] BMI Calculated 2015-06-12 03:00:00 [facility] Height 2015-06-12 03:00:00 187.96 cm [facility] Respitory Rate 2015-05-31 20:01:00 [facility] [place] Temperature Oral (F) 2015-05-31 20:01:00 97.8 F [facility] Heart Rate 2015-05-31 20:01:00 [facility] Systolic (mm Hg) 2015-05-31 20:01:00 Desmond [facility] [place] Diastolic (mm Hg) 2015-05-31 20:01:00 [facility] Temperature Oral (F) 2015-05-31 16:32:00 98.6 F [facility] Respitory Rate 2015-05-31 16:32:00 [facility] [place] Systolic (mm Hg) 2015-05-31 16:32:00 [facility] Diastolic (mm Hg) 2015-05-31 16:32:00 [facility] Heart Rate 2015-05-31 16:32:00 [facility] Respitory Rate 2015-05-31 12:54:00 [facility] [place] Temperature Oral (F) 2015-05-31 12:54:00 97.7 F [facility] Heart Rate 2015-05-31 12:54:00 [facility] Systolic (mm Hg) 2015-05-31 12:54:00 [facility] Diastolic (mm Hg) 2015-05-31 12:54:00 [facility] BMI Calculated 2015-05-17 04:04:00 [facility] [place] Weight 2015-05-17 04:04:00 [facility] Height 2015-05-17 04:04:00 187.96 cm [facility] Weight 2015-05-16 20:59:00 [facility] BMI Calculated 2015-05-16 20:59:00 [facility] Height 2015-05-16 20:59:00 187.96 cm [facility] Systolic (mm Hg) 2015-04-28 16:00:00 [facility] [place] Diastolic (mm Hg) 2015-04-28 16:00:00 [facility] Heart Rate 2015-04-28 16:00:00 [facility] Temperature Oral (F) 2015-04-28 16:00:00 97.9 F [facility] Respitory Rate 2015-04-28 16:00:00 [facility] [place] Heart Rate 2015-04-28 12:00:00 [facility] Temperature Oral (F) 2015-04-28 12:00:00 97.9 F [facility] Respitory Rate 2015-04-28 12:00:00 [facility] Systolic (mm Hg) 2015-04-28 12:00:00 [facility] [place] Diastolic (mm Hg) 2015-04-28 12:00:00 [facility] [place] Heart Rate 2015-04-28 09:16:00 [facility] Respitory Rate 2015-04-28 09:16:00 [facility] Temperature Oral (F) 2015-04-28 09:16:00 97.8 F [facility] Systolic (mm Hg) 2015-04-28 09:16:00 [facility] [place] Diastolic (mm Hg) 2015-04-28 09:16:00 [facility] Weight 2015-04-06 12:51:00 [facility] BMI Calculated 2015-04-06 12:51:00 [facility] [place] Height 2015-04-06 12:51:00 187.96 cm [facility] Weight 2015-04-06 09:04:00 [facility] Temperature Oral (F) 2015-04-04 11:00:00 98.6 F [facility] Respitory Rate 2015-04-04 11:00:00 [facility] [place] Heart Rate 2015-04-04 11:00:00 [facility] Systolic (mm Hg) 2015-04-04 11:00:00 [facility] [place] Diastolic (mm Hg) 2015-04-04 11:00:00 [facility] [place] Systolic (mm Hg) 2015-04-04 08:56:00 [facility]mond [facility] [place] Diastolic (mm Hg) 2015-04-04 08:56:00 [facility] Temperature Oral (F) 2015-04-04 08:56:00 97.9 F [facility] Heart Rate 2015-04-04 08:56:00 [facility] Respitory Rate 2015-04-04 08:56:00 [facility] Systolic (mm Hg) 2015-04-04 04:26:00 Desmond carmita [place] Diastolic (mm Hg) 2015-04-04 04:26:00 [facility] [place] Respitory Rate 2015-04-04 04:26:00 [facility] Heart Rate 2015-04-04 04:26:00 [facility] Temperature Oral (F) 2015-04-04 04:26:00 98.5 F [facility] BMI Calculated 2015-03-29 05:30:00 [facility] [place] Weight 2015-03-29 05:30:00 [facility] Height 2015-03-29 05:30:00 190.5 cm [facility] BMI Calculated 2015-03-28 17:07:00 [facility] Weight 2015-03-28 17:07:00 [facility] Height 2015-03-28 17:07:00 [facility]5 [facility] Procedure Date / Time Performing Clinician Source Performed Pacemaker 2019-11-22 00:00:00 [facility] dical Group Placement of Stent 2017-11-18 00:00:00 [facility] Chemotherapy by Infusion 2017-11-18 00:00:00 [facility] Circumcision 2017-11-18 00:00:00 [facility] dical Group Excision of Squamous Cell 2016-11-18 00:00:00 Ari brito [facility] Carcinoma Group Hernia Repair 2016-11-18 00:00:00 [facility] dical Group Screening for Malignant 2015-11-18 00:00:00 [facility] 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 Fist[facility] & Colostomy 2014-11-18 00:00:00 [facility] Procedure on Gallbladder 2014-11-18 00:00:00 [facility] Repair of Hydrocele [place] [facility] Cholecystectomy [facility] Skin [facility] Plan of Care Planned Activity Planned Date Details Comments Source Future Scheduled Test 2020-06-18 INFLUENZA VACCINE [facility] 00:00:00 [code = INFLUENZA VACCINE] Future Scheduled Test 2005 65+ PNEUMOCOCCAL [facility] 00:00:00 VACCINE (1 of 2 - PCV13) [code = 65+ PNEUMOCOCCAL VACCINE (1 of 2 - PCV13)] Future Scheduled Test 1990 SHINGLES VACCINES [facility] 00:00:00 (#1) [code = SHINGLES VACCINES (#1)] Future Appointment 2020-12-30 [facility] [address] [facility] 00:00:[address] [address] Encounters Start End Encounter Admission Attending Care Care Encounter Source Date/Time Date/Time Type Type Clinicians Facility Department ID 2020-02-24 2020-02-24 Lalito DUMAS [place] - [id number] [facility] 00:00:00 00:00:00 MD Braulio: [facility] alejandre [address] [place] [address] 201, [place] [address] , Ph. 2020-01-26 2020-01-26 Lalito DUMAS [place] - [id number] [facility] 00:00:00 00:00:00 MD Braulio: [facility] alejandre [address] [place] [address], [place] [address] , Ph. 2020-01-19 2020-01-19 Lalito DUMAS [place] - [id number] [facility] 00:00:00 00:00:00 MD Braulio: [facility] alejandre [address] [place] [address] 201, [place] [address] , Ph. 2020-01-06 2020-01-06 Lalito DUMAS [place] - [id number] [facility] 00:00:00 00:00:00 MD Braulio: [address] [place] [address], [facility] [place] [address] , Ph. 2019-12-30 2019-12-30 Lalito DUMAS [place] - [id number] [facility] 00:00:00 00:00:00 MD Braulio: [address] [place] - [address], [facility] [place] [address] , Ph. 2019-09-24 2019-09-24 Lalito DUMAS [place] - [id number] [facility] 00:00:00 00:00:00 MD Braulio: [address] [place] - [address], [place] [address] , Ph. 2019-08-24 2019-08-24 Lalito DUMAS [place] - [id number] [facility] 00:00:00 00:00:00 MD Braulio: [address] [place] - [address], [facility], [place] [address] , Ph. 2019-08-03 2019-08-03 Lalito Lester MM [place] - [id number] [facility] 00:00:00 00:00:00 MD Braulio: [address] [place] - [address], [facility] [place] [address] , Ph. 2019-07-29 2019-07-29 Lalito DUMAS [place] - [id number] [facility] 00:00:00 00:00:00 MD Braulio: [address] [place] - [address], [facility] [place] [address] , Ph. 2019-07-01 2019-07-01 Sammie DUMAS [place] - [id number] [facility] 00:00:00 00:00:00 [facility] pili Day [address] [place], [place] - [address], [facility] [place] [address] , Ph. 2019-06-15 2019-06-15 Lalito Lester MM [place] - [id number] [facility] 00:00:00 00:00:00 MD Braulio: [place] [address], [facility], [place] [address] , Ph. 2019-01-13 2019-01-13 Lalito DUMAS [place] - [id number] [facility] 00:00:00 00:00:00 MD Braulio: [address], [place] [address], [facility], [place] [address] , Ph. 2019-01-09 2019-01-09 Lalito Lester MM [place] - [id number] [facility] 00:00:00 00:00:00 MD Braulio: [place] [address], [place] [address] , Ph. 2018-12-11 2018-12-11 Lalito Lester MM [place] - [id number] [facility] 00:00:00 00:00:00 MD Braulio: [place] [address], [facility], [place] [address] , Ph. 2018-11-10 2018-11-12 Outpatient Breezy, [facility] [id number] 23:07:00 15:23:00 Shon Trimble 2018-06-02 2018-06-04 Outpatient Celso, MHSL MHSL [id number] 06:20:32 15:56:00 Luz 2018-06-02 2018-06-04 Outpatient Celso, MHSL MHSL [id number] 06:20:00 15:56:00 Luz 2018-04-11 2018-04-13 Outpatient Rehan Sarkar MHSL MHSL [id number] 13:31:00 14:50:00 Joseluis 2016-09-01 2016-09-05 Outpatient Cordell, MHSL MHSL [id number] 11:56:00 12:28:00 Lalo 04 2015-10-05 2015-10-11 Outpatient Cherry, [facility] [id number] 17:23:00 17:30:00 [facility] 2015-07-08 2015-07-08 Outpatient Santana, [id number] 07:49:00 23:59:00 Peter [id number] Charly [id number] 2015-06-13 2015-06-19 Outpatient Cherry, [facility] [id number] 18:06:00 13:05:00 [facility] 2015-05-16 2015-05-31 Outpatient Dichraulo, [facility] [id number] 15:52:00 15:21:00 Gio D 02 2015-04-06 2015-04-28 Outpatient Cherry [facility] [id number] 03:56:00 12:40:00 [facility] 2015-03-28 2015-04-04 Outpatient Posani, [place] [id number] 11:54:00 13:20:00 Britt 00 Results Test Description Test Time Test Comments Results Result Comments Source CBC W Auto Differential panel - Blood 2020-01-01 09:37:00 Test Item Value Reference Range Interpretation Comme nts white blood count (test code = white blood count) 6.7 K/uL 4.0- 12.3 red blood count (test code = red blood count) 3.05 M/uL 3.80-5.8 0 L hemoglobin (test code = hemoglobin) 9.3 g/dL 11.7-17.2 L hematocrit (test code = hematocrit) 29.4 % 35.0-51.0 L Erythrocyte mean corpuscular volume [Entitic volume] (test 96.4 fL 83-100 code = 91056-4) mean corpuscular hemoglobin (test code = mean corpuscular 30.5 pg 26.8-33.4 hemoglobin) mean corpuscular HGB conc (test code = mean corpuscular HGB 31.6 g/ dL 30-35 conc) red cell distribution width (test code = red cell 14.4 % 12.0 -14.0 H distribution width) platelet count (test code = platelet count) 255 K/uL 175-450 mean platelet volume (test code = mean platelet volume) 9.6 fL 9.4-12.6 Neutrophils.segmented/100 leukocytes in Blood (test code = 67.7 % 44.7-82.4 72676-4) Granulocytes Immature [#/volume] in Blood (test code = 0.0 K/uL 0.0-0.03 76562-4) lymphocyte% (test code = lymphocyte%) 13.8 % 10.0-50.0 mono % (test code = mono %) 10.6 % 3.9-13.4 eos % (test code = eos %) 6.6 % 0.0-6.4 H Basophils/100 leukocytes in Unspecified specimen (test code 0.9 % 0.2-1.2 = 50770-5) Neutrophils.band form [#/volume] in Blood (test code = 4.52 K/uL 1.78-5.38 62347-6) Lymphocytes [#/volume] in Unspecified specimen by Automated 0.9 K/uL 1.32-3.57 L count (test code = 36483-0) mono # (test code = mono #) 0.71 K/uL 0.30-0.82 eos # (test code = eos #) 0.44 K/uL 0.04-0.54 basophil # (test code = basophil #) 0.06 K/uL 0.01-0.08 NRBC% (test code = NRBC%) 0 /100 WBC 0-0.2 NRBC# (test code = NRBC#) 0 K/uL [id number] 09:37:00 Test Item Value Reference Range Interpretation Comments prothrombin time (test code = 10.3 seconds 10.3-12.3 prothrombin time) INR in Blood by Coagulation 0.95 assay (test code = 65475-7) [facility] [id number] 09:37:00 Test Item Value Reference Range Interpretation Comments INR in Blood by Coagulation 29.1 seconds 22.5-37.0 assay (test code = 46199-4) [facility]idianThyrotropin [Units/volume] in Serum or [id number] 09:37:00 Test Item Value Reference Range Interpretation Comments Thyrotropin [Units/volume] in 2.98 uIU/mL 0.36-3.74 Serum or Plasma (test code = 3016-3) [facility]idianHemoglobin A1c [Mass/volume] in [id number] 09:37:00 Test Item Value Reference Range Interpretation Comments Hemoglobin A1c [Mass/volume] in Blood 4.9 % 4.0-6.0 (test code = 83297-6) [facility] [facility] - Serum or Plasma 2020-01-01 09:37:00 Test Item Value Reference Range Interpretation Comments Glucose [Mass/volume] in Serum or 109 mg/dL 82-115 Plasma (test code = 2345-7) Urea nitrogen [Mass/volume] in 41 mg/dL 8-23 H Serum or Plasma (test code = 3094-0) osmolality calculated,serum (test 294 mOsm/kg 280-300 code = osmolality calculated,serum) creatinine (test code = 2.0 mg/dL 0.70-1.20 H creatinine) glomerular filtration rate (test 32.39 L code = glomerular filtration rate) Urea nitrogen/Creatinine [Mass 20.5 12-20 H Ratio] in Serum or Plasma (test code = 3097-3) sodium level (test code = sodium 142 mmol/L 135-145 level) potassium level (test code = 3.6 mmol/L 3.5-5.2 potassium level) chloride level (test code = 98 mmol/L 98-108 chloride level) CO2 (test code = CO2) 30 mmol/L 21-32 anion gap (test code = anion gap) 17.6 mEq/L 12-20 calcium level (test code = 9.3 mg/dL 8.8-10.2 calcium level) total protein (test code = total 7.1 g/dL 6.6-8.7 protein) albumin (test code = albumin) 4.0 g/dL 3.5-5.2 globulin (test code = globulin) 3.1 gm/dL A/G ratio (test code = A/G ratio) 1.3 >1.0 bilirubin,total (test code = 0.5 mg/dL 0.0-1.2 bilirubin,total) AST/SGOT (test code = AST/SGOT) 14 U/L 15-40 L Alanine aminotransferase 6 U/L 0-41 [Enzymatic activity/volume] in Serum or Plasma (test code = 1742-6) Alkaline phosphatase [Enzymatic 109 U/L 40-130 activity/volume] in Serum or Plasma (test code = 6768-6) [facility] - Serum or [id number] 09:37:00 Test Item Value Reference Range Interpretation Comments cholesterol level (test code = 104 mg/dL 150-200 L cholesterol level) triglycerides level (test code = 92 mg/dL <150 triglycerides level) HDL cholesterol (test code = HDL 36 mg/dL >55 L cholesterol) LDL cholesterol direct (test code = 55 mg/dL <100 LDL cholesterol direct) cholesterol risk ratio (test code = 2.888 cholesterol risk ratio) [facility] Reflex Culture panel - Urine 2020-01-01 09:37:00 Test Item Value Reference Range Interpretation Comments Color of Urine by Auto (test lt. yellow code = 67243-7) Appearance of Urine (test code clear clear = 5767-9) Glucose [Mass/volume] in Urine negative negative (test code = 2350-7) bilirubin, urine (test code = negative negative bilirubin, urine) ketone, urine (test code = negative negative ketone, urine) Specific gravity of Urine by 1.015 1.003-1.030 Automated test strip (test code = 26297-4) Hemoglobin [Presence] in Urine large negative H by Test strip (test code = 5794-3) pH of Urine (test code = 6.000 5-9 2756-5) protein urine (UA) (test code = negative negative protein urine (UA)) Urobilinogen [Presence] in 0.2 E.U./dL 0.2-1.0 Urine (test code = 46378-8) Nitrite [Presence] in Urine by negative negative Test strip (test code = 5802-4) urine leukocyte esterase (test negative negative code = urine leukocyte esterase) Erythrocytes [Presence] in =0-3 0-5 Urine (test code = 59098-7) WBC, urine (test code = WBC, =0-2 0-5 urine) Epithelial cells [Presence] in =0-5 0-5 Urine sediment by Light microscopy (test code = 10680-8) bacteria, urine (test code = none detected none detect bacteria, urine) urine culture added? (test code no = urine culture added?) [facility] Auto Differential panel - [id number] 09:37:00 Test Item Value Reference Range Interpretation Comments white blood count (test code = 6.7 K/uL 4.0-12.3 white blood count) red blood count (test code = red 3.05 M/uL 3.80-5.80 L blood count) hemoglobin (test code = 9.3 g/dL 11.7-17.2 L hemoglobin) hematocrit (test code = 29.4 % 35.0-51.0 L hematocrit) Erythrocyte mean corpuscular 96.4 fL 83-100 volume [Entitic volume] (test code = 08747-9) mean corpuscular hemoglobin (test 30.5 pg 26.8-33.4 code = mean corpuscular hemoglobin) mean corpuscular HGB conc (test 31.6 g/dL 30-35 code = mean corpuscular HGB conc) red cell distribution width (test 14.4 % 12.0-14.0 H code = red cell distribution width) platelet count (test code = 255 K/uL 175-450 platelet count) mean platelet volume (test code = 9.6 fL 9.4-12.6 mean platelet volume) Neutrophils.segmented/100 67.7 % 44.7-82.4 leukocytes in Blood (test code = 25124-9) Granulocytes Immature [#/volume] 0.0 K/uL 0.0-0.03 in Blood (test code = 53891-9) lymphocyte% (test code = 13.8 % 10.0-50.0 lymphocyte%) mono % (test code = mono %) 10.6 % 3.9-13.4 eos % (test code = eos %) 6.6 % 0.0-6.4 H Basophils/100 leukocytes in 0.9 % 0.2-1.2 Unspecified specimen (test code = 37831-6) Neutrophils.band form [#/volume] 4.52 K/uL 1.78-5.38 in Blood (test code = 91004-8) Lymphocytes [#/volume] in 0.9 K/uL 1.32-3.57 L Unspecified specimen by Automated count (test code = 05675-1) mono # (test code = mono #) 0.71 K/uL 0.30-0.82 eos # (test code = eos #) 0.44 K/uL 0.04-0.54 basophil # (test code = basophil 0.06 K/uL 0.01-0.08 #) NRBC% (test code = NRBC%) 0 /100 WBC 0-0.2 NRBC# (test code = NRBC#) 0 K/uL [facility]/[id number] 09:37:00 Test Item Value Reference Range Interpretation Comments prothrombin time (test code = 10.3 seconds 10.3-12.3 prothrombin time) INR in Blood by Coagulation 0.95 assay (test code = 72383-2) [facility] [id number] 09:37:00 Test Item Value Reference Range Interpretation Comments INR in Blood by Coagulation 29.1 seconds 22.5-37.0 assay (test code = 04332-0) [facility]idianThyrotropin [Units/volume] in Serum or [id number] 09:37:00 Test Item Value Reference Range Interpretation Comments Thyrotropin [Units/volume] in 2.98 uIU/mL 0.36-3.74 Serum or Plasma (test code = 3016-3) [facility]idianHemoglobin A1c [Mass/volume] in [id number] 09:37:00 Test Item Value Reference Range Interpretation Comments Hemoglobin A1c [Mass/volume] in Blood 4.9 % 4.0-6.0 (test code = 33901-3) [facility] - Serum or Plasma 2020-01-01 09:37:00 Test Item Value Reference Range Interpretation Comments Glucose [Mass/volume] in Serum or 109 mg/dL 82-115 Plasma (test code = 2345-7) Urea nitrogen [Mass/volume] in 41 mg/dL 8-23 H Serum or Plasma (test code = 3094-0) osmolality calculated,serum (test 294 mOsm/kg 280-300 code = osmolality calculated,serum) creatinine (test code = 2.0 mg/dL 0.70-1.20 H creatinine) glomerular filtration rate (test 32.39 L code = glomerular filtration rate) Urea nitrogen/Creatinine [Mass 20.5 12-20 H Ratio] in Serum or Plasma (test code = 3097-3) sodium level (test code = sodium 142 mmol/L 135-145 level) potassium level (test code = 3.6 mmol/L 3.5-5.2 potassium level) chloride level (test code = 98 mmol/L 98-108 chloride level) CO2 (test code = CO2) 30 mmol/L 21-32 anion gap (test code = anion gap) 17.6 mEq/L 12-20 calcium level (test code = 9.3 mg/dL 8.8-10.2 calcium level) total protein (test code = total 7.1 g/dL 6.6-8.7 protein) albumin (test code = albumin) 4.0 g/dL 3.5-5.2 globulin (test code = globulin) 3.1 gm/dL A/G ratio (test code = A/G ratio) 1.3 >1.0 bilirubin,total (test code = 0.5 mg/dL 0.0-1.2 bilirubin,total) AST/SGOT (test code = AST/SGOT) 14 U/L 15-40 L Alanine aminotransferase 6 U/L 0-41 [Enzymatic activity/volume] in Serum or Plasma (test code = 1742-6) Alkaline phosphatase [Enzymatic 109 U/L 40-130 activity/volume] in Serum or Plasma (test code = 6768-6) [facility] 1996 panel - Serum or [id number] 09:37:00 Test Item Value Reference Range Interpretation Comments cholesterol level (test code = 104 mg/dL 150-200 L cholesterol level) triglycerides level (test code = 92 mg/dL <150 triglycerides level) HDL cholesterol (test code = HDL 36 mg/dL >55 L cholesterol) LDL cholesterol direct (test code = 55 mg/dL <100 LDL cholesterol direct) cholesterol risk ratio (test code = 2.888 cholesterol risk ratio) [facility] Reflex Culture panel - Urine 2020-01-01 09:37:00 Test Item Value Reference Range Interpretation Comments Color of Urine by Auto (test lt. yellow code = 62523-6) Appearance of Urine (test code clear clear = 5767-9) Glucose [Mass/volume] in Urine negative negative (test code = 2350-7) bilirubin, urine (test code = negative negative bilirubin, urine) ketone, urine (test code = negative negative ketone, urine) Specific gravity of Urine by 1.015 1.003-1.030 Automated test strip (test code = 76059-5) Hemoglobin [Presence] in Urine large negative H by Test strip (test code = 5794-3) pH of Urine (test code = 6.000 5-9 2756-5) protein urine (UA) (test code = negative negative protein urine (UA)) Urobilinogen [Presence] in 0.2 E.U./dL 0.2-1.0 Urine (test code = 14582-2) Nitrite [Presence] in Urine by negative negative Test strip (test code = 5802-4) urine leukocyte esterase (test negative negative code = urine leukocyte esterase) Erythrocytes [Presence] in =0-3 0-5 Urine (test code = 12627-4) WBC, urine (test code = WBC, =0-2 0-5 urine) Epithelial cells [Presence] in =0-5 0-5 Urine sediment by Light microscopy (test code = 86214-9) bacteria, urine (test code = none detected none detect bacteria, urine) urine culture added? (test code no = urine culture added?) [facility] W Auto Differential panel - [id number] 09:37:00 Test Item Value Reference Range Interpretation Comments white blood count (test code = 6.7 K/uL 4.0-12.3 white blood count) red blood count (test code = red 3.05 M/uL 3.80-5.80 L blood count) hemoglobin (test code = 9.3 g/dL 11.7-17.2 L hemoglobin) hematocrit (test code = 29.4 % 35.0-51.0 L hematocrit) Erythrocyte mean corpuscular 96.4 fL 83-100 volume [Entitic volume] (test code = 87978-4) mean corpuscular hemoglobin (test 30.5 pg 26.8-33.4 code = mean corpuscular hemoglobin) mean corpuscular HGB conc (test 31.6 g/dL 30-35 code = mean corpuscular HGB conc) red cell distribution width (test 14.4 % 12.0-14.0 H code = red cell distribution width) platelet count (test code = 255 K/uL 175-450 platelet count) mean platelet volume (test code = 9.6 fL 9.4-12.6 mean platelet volume) Neutrophils.segmented/100 67.7 % 44.7-82.4 leukocytes in Blood (test code = 42638-1) Granulocytes Immature [#/volume] 0.0 K/uL 0.0-0.03 in Blood (test code = 88022-5) lymphocyte% (test code = 13.8 % 10.0-50.0 lymphocyte%) mono % (test code = mono %) 10.6 % 3.9-13.4 eos % (test code = eos %) 6.6 % 0.0-6.4 H Basophils/100 leukocytes in 0.9 % 0.2-1.2 Unspecified specimen (test code = 11086-1) Neutrophils.band form [#/volume] 4.52 K/uL 1.78-5.38 in Blood (test code = 21508-5) Lymphocytes [#/volume] in 0.9 K/uL 1.32-3.57 L Unspecified specimen by Automated count (test code = 86638-5) mono # (test code = mono #) 0.71 K/uL 0.30-0.82 eos # (test code = eos #) 0.44 K/uL 0.04-0.54 basophil # (test code = basophil 0.06 K/uL 0.01-0.08 #) NRBC% (test code = NRBC%) 0 /100 WBC 0-0.2 NRBC# (test code = NRBC#) 0 K/uL [facility]/[id number] 09:37:00 Test Item Value Reference Range Interpretation Comments prothrombin time (test code = 10.3 seconds 10.3-12.3 prothrombin time) INR in Blood by Coagulation 0.95 assay (test code = 43490-3) [facility] [id number] 09:37:00 Test Item Value Reference Range Interpretation Comments INR in Blood by Coagulation 29.1 seconds 22.5-37.0 assay (test code = 27740-8) [facility]Thyrotropin [Units/volume] in Serum or [id number] 09:37:00 Test Item Value Reference Range Interpretation Comments Thyrotropin [Units/volume] in 2.98 uIU/mL 0.36-3.74 Serum or Plasma (test code = 3016-3) [facility]Hemoglobin A1c [Mass/volume] in [id number] 09:37:00 Test Item Value Reference Range Interpretation Comments Hemoglobin A1c [Mass/volume] in Blood 4.9 % 4.0-6.0 (test code = 82628-6) [facility] - Serum or Plasma 2020-01-01 09:37:00 Test Item Value Reference Range Interpretation Comments Glucose [Mass/volume] in Serum or 109 mg/dL 82-115 Plasma (test code = 2345-7) Urea nitrogen [Mass/volume] in 41 mg/dL 8-23 H Serum or Plasma (test code = 3094-0) osmolality calculated,serum (test 294 mOsm/kg 280-300 code = osmolality calculated,serum) creatinine (test code = 2.0 mg/dL 0.70-1.20 H creatinine) glomerular filtration rate (test 32.39 L code = glomerular filtration rate) Urea nitrogen/Creatinine [Mass 20.5 12-20 H Ratio] in Serum or Plasma (test code = 3097-3) sodium level (test code = sodium 142 mmol/L 135-145 level) potassium level (test code = 3.6 mmol/L 3.5-5.2 potassium level) chloride level (test code = 98 mmol/L 98-108 chloride level) CO2 (test code = CO2) 30 mmol/L 21-32 anion gap (test code = anion gap) 17.6 mEq/L 12-20 calcium level (test code = 9.3 mg/dL 8.8-10.2 calcium level) total protein (test code = total 7.1 g/dL 6.6-8.7 protein) albumin (test code = albumin) 4.0 g/dL 3.5-5.2 globulin (test code = globulin) 3.1 gm/dL A/G ratio (test code = A/G ratio) 1.3 >1.0 bilirubin,total (test code = 0.5 mg/dL 0.0-1.2 bilirubin,total) AST/SGOT (test code = AST/SGOT) 14 U/L 15-40 L Alanine aminotransferase 6 U/L 0-41 [Enzymatic activity/volume] in Serum or Plasma (test code = 1742-6) Alkaline phosphatase [Enzymatic 109 U/L 40-130 activity/volume] in Serum or Plasma (test code = 6768-6) [facility] 1996 panel - Serum or [id number] 09:37:00 Test Item Value Reference Range Interpretation Comments cholesterol level (test code = 104 mg/dL 150-200 L cholesterol level) triglycerides level (test code = 92 mg/dL <150 triglycerides level) HDL cholesterol (test code = HDL 36 mg/dL >55 L cholesterol) LDL cholesterol direct (test code = 55 mg/dL <100 LDL cholesterol direct) cholesterol risk ratio (test code = 2.888 cholesterol risk ratio) [facility] W Reflex Culture panel - Urine 2020-01-01 09:37:00 Test Item Value Reference Range Interpretation Comments Color of Urine by Auto (test lt. yellow code = 64847-5) Appearance of Urine (test code clear clear = 5767-9) Glucose [Mass/volume] in Urine negative negative (test code = 2350-7) bilirubin, urine (test code = negative negative bilirubin, urine) ketone, urine (test code = negative negative ketone, urine) Specific gravity of Urine by 1.015 1.003-1.030 Automated test strip (test code = 08740-8) Hemoglobin [Presence] in Urine large negative H by Test strip (test code = 5794-3) pH of Urine (test code = 6.000 5-9 2756-5) protein urine (UA) (test code = negative negative protein urine (UA)) Urobilinogen [Presence] in 0.2 E.U./dL 0.2-1.0 Urine (test code = 64282-2) Nitrite [Presence] in Urine by negative negative Test strip (test code = 5802-4) urine leukocyte esterase (test negative negative code = urine leukocyte esterase) Erythrocytes [Presence] in =0-3 0-5 Urine (test code = 19125-1) WBC, urine (test code = WBC, =0-2 0-5 urine) Epithelial cells [Presence] in =0-5 0-5 Urine sediment by Light microscopy (test code = 20676-2) bacteria, urine (test code = none detected none detect bacteria, urine) urine culture added? (test code no = urine culture added?) [facility] W Auto Differential panel - [id number] 09:37:00 Test Item Value Reference Range Interpretation Comments white blood count (test code = 6.7 K/uL 4.0-12.3 white blood count) red blood count (test code = red 3.05 M/uL 3.80-5.80 L blood count) hemoglobin (test code = 9.3 g/dL 11.7-17.2 L hemoglobin) hematocrit (test code = 29.4 % 35.0-51.0 L hematocrit) Erythrocyte mean corpuscular 96.4 fL 83-100 volume [Entitic volume] (test code = 05743-1) mean corpuscular hemoglobin (test 30.5 pg 26.8-33.4 code = mean corpuscular hemoglobin) mean corpuscular HGB conc (test 31.6 g/dL 30-35 code = mean corpuscular HGB conc) red cell distribution width (test 14.4 % 12.0-14.0 H code = red cell distribution width) platelet count (test code = 255 K/uL 175-450 platelet count) mean platelet volume (test code = 9.6 fL 9.4-12.6 mean platelet volume) Neutrophils.segmented/100 67.7 % 44.7-82.4 leukocytes in Blood (test code = 08724-8) Granulocytes Immature [#/volume] 0.0 K/uL 0.0-0.03 in Blood (test code = 02611-1) lymphocyte% (test code = 13.8 % 10.0-50.0 lymphocyte%) mono % (test code = mono %) 10.6 % 3.9-13.4 eos % (test code = eos %) 6.6 % 0.0-6.4 H Basophils/100 leukocytes in 0.9 % 0.2-1.2 Unspecified specimen (test code = 75080-1) Neutrophils.band form [#/volume] 4.52 K/uL 1.78-5.38 in Blood (test code = 52488-1) Lymphocytes [#/volume] in 0.9 K/uL 1.32-3.57 L Unspecified specimen by Automated count (test code = 69197-3) mono # (test code = mono #) 0.71 K/uL 0.30-0.82 eos # (test code = eos #) 0.44 K/uL 0.04-0.54 basophil # (test code = basophil 0.06 K/uL 0.01-0.08 #) NRBC% (test code = NRBC%) 0 /100 WBC 0-0.2 NRBC# (test code = NRBC#) 0 K/uL [facility]/[id number] 09:37:00 Test Item Value Reference Range Interpretation Comments prothrombin time (test code = 10.3 seconds 10.3-12.3 prothrombin time) INR in Blood by Coagulation 0.95 assay (test code = 06414-0) [facility] [id number] 09:37:00 Test Item Value Reference Range Interpretation Comments INR in Blood by Coagulation 29.1 seconds 22.5-37.0 assay (test code = 93782-3) [facility]Thyrotropin [Units/volume] in Serum or [id number] 09:37:00 Test Item Value Reference Range Interpretation Comments Thyrotropin [Units/volume] in 2.98 uIU/mL 0.36-3.74 Serum or Plasma (test code = 3016-3) [facility]Hemoglobin A1c [Mass/volume] in [id number] 09:37:00 Test Item Value Reference Range Interpretation Comments Hemoglobin A1c [Mass/volume] in Blood 4.9 % 4.0-6.0 (test code = 85859-2) [facility] 2000 [facility] - Serum or Plasma 2020-01-01 09:37:00 Test Item Value Reference Range Interpretation Comments Glucose [Mass/volume] in Serum or 109 mg/dL 82-115 Plasma (test code = 2345-7) Urea nitrogen [Mass/volume] in 41 mg/dL 8-23 H Serum or Plasma (test code = 3094-0) osmolality calculated,serum (test 294 mOsm/kg 280-300 code = osmolality calculated,serum) creatinine (test code = 2.0 mg/dL 0.70-1.20 H creatinine) glomerular filtration rate (test 32.39 L code = glomerular filtration rate) Urea nitrogen/Creatinine [Mass 20.5 12-20 H Ratio] in Serum or Plasma (test code = 3097-3) sodium level (test code = sodium 142 mmol/L 135-145 level) potassium level (test code = 3.6 mmol/L 3.5-5.2 potassium level) chloride level (test code = 98 mmol/L 98-108 chloride level) CO2 (test code = CO2) 30 mmol/L 21-32 anion gap (test code = anion gap) 17.6 mEq/L 12-20 calcium level (test code = 9.3 mg/dL 8.8-10.2 calcium level) total protein (test code = total 7.1 g/dL 6.6-8.7 protein) albumin (test code = albumin) 4.0 g/dL 3.5-5.2 globulin (test code = globulin) 3.1 gm/dL A/G ratio (test code = A/G ratio) 1.3 >1.0 bilirubin,total (test code = 0.5 mg/dL 0.0-1.2 bilirubin,total) AST/SGOT (test code = AST/SGOT) 14 U/L 15-40 L Alanine aminotransferase 6 U/L 0-41 [Enzymatic activity/volume] in Serum or Plasma (test code = 1742-6) Alkaline phosphatase [Enzymatic 109 U/L 40-130 activity/volume] in Serum or Plasma (test code = 6768-6) [facility] 1996 panel - Serum or [id number] 09:37:00 Test Item Value Reference Range Interpretation Comments cholesterol level (test code = 104 mg/dL 150-200 L cholesterol level) triglycerides level (test code = 92 mg/dL <150 triglycerides level) HDL cholesterol (test code = HDL 36 mg/dL >55 L cholesterol) LDL cholesterol direct (test code = 55 mg/dL <100 LDL cholesterol direct) cholesterol risk ratio (test code = 2.888 cholesterol risk ratio) [facility] W Reflex Culture panel - Urine 2020-01-01 09:37:00 Test Item Value Reference Range Interpretation Comments Color of Urine by Auto (test lt. yellow code = 88143-6) Appearance of Urine (test code clear clear = 5767-9) Glucose [Mass/volume] in Urine negative negative (test code = 2350-7) bilirubin, urine (test code = negative negative bilirubin, urine) ketone, urine (test code = negative negative ketone, urine) Specific gravity of Urine by 1.015 1.003-1.030 Automated test strip (test code = 17836-8) Hemoglobin [Presence] in Urine large negative H by Test strip (test code = 5794-3) pH of Urine (test code = 6.000 5-9 2756-5) protein urine (UA) (test code = negative negative protein urine (UA)) Urobilinogen [Presence] in 0.2 E.U./dL 0.2-1.0 Urine (test code = 02607-6) Nitrite [Presence] in Urine by negative negative Test strip (test code = 5802-4) urine leukocyte esterase (test negative negative code = urine leukocyte esterase) Erythrocytes [Presence] in =0-3 0-5 Urine (test code = 85082-2) WBC, urine (test code = WBC, =0-2 0-5 urine) Epithelial cells [Presence] in =0-5 0-5 Urine sediment by Light microscopy (test code = 75682-5) bacteria, urine (test code = none detected none detect bacteria, urine) urine culture added? (test code no = urine culture added?) [facility]mleveli2019-[facility] 11:20:00 Test Item Value Reference Range Interpretation Comments Surgical pathology see separate pathology study (test code = report. 43501-2) [facility]idianMethicillin resistant Staphylococcus aureus [Presence] in Unspecified specimen by Organism specific [id number] 06:40:00Results [facility] W Auto Differential panel - [id number] 01:50:00 Test Item Value Reference Range Interpretation Comments white blood count (test code = 4.1 K/uL 4.0-12.3 white blood count) red blood count (test code = red 2.91 M/uL 3.80-5.80 L blood count) hemoglobin (test code = 9.3 g/dL 11.7-17.2 L hemoglobin) hematocrit (test code = 28.5 % 35.0-51.0 L hematocrit) Erythrocyte mean corpuscular 97.9 fL 83-100 volume [Entitic volume] (test code = 46653-5) mean corpuscular hemoglobin (test 32.0 pg 26.8-33.4 code = mean corpuscular hemoglobin) mean corpuscular HGB conc (test 32.6 g/dL 30-35 code = mean corpuscular HGB conc) red cell distribution width (test 15.0 % 12.0-14.0 H code = red cell distribution width) platelet count (test code = 131 K/uL 175-450 L platelet count) mean platelet volume (test code = 9.1 fL 9.4-12.6 L mean platelet volume) Neutrophils.segmented/100 62.1 % 44.7-82.4 leukocytes in Blood (test code = 24430-6) Granulocytes Immature [#/volume] 0.0 K/uL 0.0-0.03 in Blood (test code = 12698-3) lymphocyte% (test code = 23.4 % 10.0-50.0 lymphocyte%) mono % (test code = mono %) 9.4 % 3.9-13.4 eos % (test code = eos %) 4.4 % 0.0-6.4 Basophils/100 leukocytes in 0.5 % 0.2-1.2 Unspecified specimen (test code = 63421-4) Neutrophils.band form [#/volume] 2.52 K/uL 1.78-5.38 in Blood (test code = 85050-0) Lymphocytes [#/volume] in 1.0 K/uL 1.32-3.57 L Unspecified specimen by Automated count (test code = 66767-9) mono # (test code = mono #) 0.38 K/uL 0.30-0.82 eos # (test code = eos #) 0.18 K/uL 0.04-0.54 basophil # (test code = basophil 0.02 K/uL 0.01-0.08 #) NRBC% (test code = NRBC%) 0 /100 WBC 0-0.2 NRBC# (test code = NRBC#) 0 K/uL [facility], [id number] 01:50:00 NeutrophilsBandLymphocyteAtypical LymphMonocyteEosinophilBasophilDifferential CommentPlatelet EstimatePlatelet MorphologyPoikilocytosisToxic GranulationBurr CellsRegency MeridianBasic metabolic 2000 panel - Serum or Plasma 2019-08-16 01:50:00 Test Item Value Reference Range Interpretation Comments Glucose [Mass/volume] in Serum or 99 mg/dL 82-115 Plasma (test code = 2345-7) Urea nitrogen [Mass/volume] in 31 mg/dL 8-23 H Serum or Plasma (test code = 3094-0) osmolality calculated, serum (test 282 280-300 code = osmolality calculated, serum) creatinine (test code = 1.7 mg/dL 0.70-1.20 H creatinine) glomerular filtration rate (test 39.07 L code = glomerular filtration rate) Urea nitrogen/Creatinine [Mass 18.2 12-20 Ratio] in Serum or Plasma (test code = 3097-3) sodium level (test code = sodium 138 mmol/L 135-145 level) potassium level (test code = 4.1 mmol/L 3.5-5.2 potassium level) chloride level (test code = 107 mmol/L 98-108 chloride level) CO2 (test code = CO2) 20 mmol/L 21-32 L anion gap (test code = anion gap) 15.1 mEq/L 12-20 calcium level (test code = calcium 8.5 mg/dL 8.8-10.2 L level) [facility]inal[facility] complete panel - [id number] 12:59:00 Test Item Value Reference Range Interpretation Comments Color of Urine by Auto (test colorless code = 10492-4) Appearance of Urine (test code clear clear = 5767-9) Glucose [Presence] in Urine by negative negative Automated test strip (test code = 01380-7) Bilirubin.total [Mass/volume] negative negative in Urine (test code = 1978-6) Ketones [Mass/volume] in Urine negative negative by Automated test strip (test code = 04716-5) Specific gravity of Urine by 1.011 1.003-1.030 Automated test strip (test code = 64518-4) blood urine (test code = blood negative negative urine) pH of Urine (test code = 5.000 5-9 2756-5) protein urine (UA) (test code = negative negative protein urine (UA)) Urobilinogen [Presence] in normal 0.2-1.0 Urine (test code = 46315-2) Nitrite [Presence] in Urine by negative negative Test strip (test code = 5802-4) Leukocyte esterase [Presence] negative negative in Urine by Automated test strip (test code = 24190-1) Erythrocytes [#/volume] in =1-5 0-5 Urine by Automated count (test code = 798-9) Leukocytes [#/area] in Urine <1 0-5 sediment by Automated count (test code = 00049-8) Epithelial cells [Presence] in <1 0-5 Urine sediment by Light microscopy (test code = 67727-5) Bacteria identified in Urine by none detected none detect Culture (test code = 630-4) Casts [#/area] in Urine none detected none detect sediment by Automated count (test code = 47956-4) urine culture added? (test code no = urine culture added?) [facility] Differential panel - [id number] 01:58:00 Test Item Value Reference Range Interpretation Comments white blood count (test code = 5.6 K/uL 4.0-12.3 white blood count) red blood count (test code = red 3.24 M/uL 3.80-5.80 L blood count) hemoglobin (test code = 10.3 g/dL 11.7-17.2 L hemoglobin) hematocrit (test code = 30.9 % 35.0-51.0 L hematocrit) Erythrocyte mean corpuscular 95.4 fL 83-100 volume [Entitic volume] (test code = 73340-4) mean corpuscular hemoglobin (test 31.8 pg 26.8-33.4 code = mean corpuscular hemoglobin) mean corpuscular HGB conc (test 33.3 g/dL 30-35 code = mean corpuscular HGB conc) red cell distribution width (test 15.0 % 12.0-14.0 H code = red cell distribution width) platelet count (test code = 153 K/uL 175-450 L platelet count) mean platelet volume (test code = 9.1 fL 9.4-12.6 L mean platelet volume) Neutrophils.segmented/100 70.8 % 44.7-82.4 leukocytes in Blood (test code = 40157-0) Granulocytes Immature [#/volume] 0.0 K/uL 0.0-0.03 in Blood (test code = 63547-5) lymphocyte% (test code = 17.4 % 10.0-50.0 lymphocyte%) mono % (test code = mono %) 7.1 % 3.9-13.4 eos % (test code = eos %) 3.9 % 0.0-6.4 Basophils/100 leukocytes in 0.4 % 0.2-1.2 Unspecified specimen (test code = 37552-5) Neutrophils.band form [#/volume] 3.99 K/uL 1.78-5.38 in Blood (test code = 34722-7) Lymphocytes [#/volume] in 1.0 K/uL 1.32-3.57 L Unspecified specimen by Automated count (test code = 93911-1) mono # (test code = mono #) 0.40 K/uL 0.30-0.82 eos # (test code = eos #) 0.22 K/uL 0.04-0.54 basophil # (test code = basophil 0.02 K/uL 0.01-0.08 #) NRBC% (test code = NRBC%) 0 /100 WBC 0-0.2 NRBC# (test code = NRBC#) 0 K/uL [facility] metabolic 2000 panel - Serum or [id number] 01:58:00 Test Item Value Reference Range Interpretation Comments Glucose [Mass/volume] in Serum or 107 mg/dL 82-115 Plasma (test code = 2345-7) Urea nitrogen [Mass/volume] in 36 mg/dL 8-23 H Serum or Plasma (test code = 3094-0) osmolality calculated, serum (test 286 280-300 code = osmolality calculated, serum) creatinine (test code = 1.8 mg/dL 0.70-1.20 H creatinine) glomerular filtration rate (test 36.58 L code = glomerular filtration rate) Urea nitrogen/Creatinine [Mass 20.0 12-20 Ratio] in Serum or Plasma (test code = 3097-3) sodium level (test code = sodium 139 mmol/L 135-145 level) potassium level (test code = 3.6 mmol/L 3.5-5.2 potassium level) chloride level (test code = 108 mmol/L 98-108 chloride level) CO2 (test code = CO2) 18 mmol/L 21-32 L anion gap (test code = anion gap) 16.6 mEq/L 12-20 calcium level (test code = calcium 8.6 mg/dL 8.8-10.2 L level) [facility] Differential panel - [id number] 03:36:00 Test Item Value Reference Range Interpretation Comments white blood count (test code = 4.8 K/uL 4.0-12.3 white blood count) red blood count (test code = red 2.94 M/uL 3.80-5.80 L blood count) hemoglobin (test code = 9.4 g/dL 11.7-17.2 L hemoglobin) hematocrit (test code = 29.6 % 35.0-51.0 L hematocrit) Erythrocyte mean corpuscular 100.7 fL 83-100 H volume [Entitic volume] (test code = 14146-0) mean corpuscular hemoglobin (test 32.0 pg 26.8-33.4 code = mean corpuscular hemoglobin) mean corpuscular HGB conc (test 31.8 g/dL 30-35 code = mean corpuscular HGB conc) red cell distribution width (test 15.3 % 12.0-14.0 H code = red cell distribution width) platelet count (test code = 141 K/uL 175-450 platelet count) mean platelet volume (test code = 9.4 fL 9.4-12.6 mean platelet volume) Neutrophils.segmented/100 69.5 % 44.7-82.4 leukocytes in Blood (test code = 48627-0) Granulocytes Immature [#/volume] 0.0 K/uL 0.0-0.03 in Blood (test code = 88642-4) lymphocyte% (test code = 19.0 % 10.0-50.0 lymphocyte%) mono % (test code = mono %) 8.6 % 3.9-13.4 eos % (test code = eos %) 2.1 % 0.0-6.4 Basophils/100 leukocytes in 0.4 % 0.2-1.2 Unspecified specimen (test code = 87959-3) Neutrophils.band form [#/volume] 3.33 K/uL 1.78-5.38 in Blood (test code = 24076-1) Lymphocytes [#/volume] in 0.9 K/uL 1.32-3.57 L Unspecified specimen by Automated count (test code = 52040-0) mono # (test code = mono #) 0.41 K/uL 0.30-0.82 eos # (test code = eos #) 0.10 K/uL 0.04-0.54 basophil # (test code = basophil 0.02 K/uL 0.01-0.08 #) NRBC% (test code = NRBC%) 0 /100 WBC 0-0.2 NRBC# (test code = NRBC#) 0 K/uL [facility], [id number] 03:36:00 NeutrophilsBandLymphocyteAtypical LymphMonocyteEosinophilBasophilPlatelet EstimatePlatelet MorphologyMacrocytosisToxic GranulationSmudge CellsRegency MeridianComprehensive metabolic 2000 panel - Serum or [id number] 03:36:00 Test Item Value Reference Range Interpretation Comments Glucose [Mass/volume] in Serum or 123 mg/dL 82-115 H Plasma (test code = 2345-7) Urea nitrogen [Mass/volume] in 44 mg/dL 8-23 H Serum or Plasma (test code = 3094-0) osmolality calculated, serum (test 290 280-300 code = osmolality calculated, serum) creatinine (test code = 2.4 mg/dL 0.70-1.20 H creatinine) glomerular filtration rate (test 26.25 L code = glomerular filtration rate) Urea nitrogen/Creatinine [Mass 18.3 12-20 Ratio] in Serum or Plasma (test code = 3097-3) sodium level (test code = sodium 139 mmol/L 135-145 level) potassium level (test code = 3.7 mmol/L 3.5-5.2 potassium level) chloride level (test code = 111 mmol/L 98-108 H chloride level) CO2 (test code = CO2) 15 mmol/L 21-32 L anion gap (test code = anion gap) 16.7 mEq/L 12-20 calcium level (test code = calcium 8.3 mg/dL 8.8-10.2 L level) total protein (test code = total 5.4 g/dL 6.6-8.7 L protein) albumin (test code = albumin) 3.1 g/dL 3.5-5.2 L globulin (test code = globulin) 2.3 gm/dL A/G ratio (test code = A/G ratio) 1.3 >1.0 bilirubin,total (test code = <0.3 0.0-1.2 bilirubin,total) AST/SGOT (test code = AST/SGOT) 15 U/L 15-40 Alanine aminotransferase 7 U/L 0-41 [Enzymatic activity/volume] in Serum or Plasma (test code = 1742-6) Alkaline phosphatase [Enzymatic 94 U/L 40-130 activity/volume] in Serum or Plasma (test code = 6768-6) [facility]idianMagnesium [Moles/volume] in Unspecified specimen 2019-08-14 03:36:00 Test Item Value Reference Range Interpretation Comments magnesium level (test code = 1.8 mg/dL 1.6-2.4 magnesium level) [facility]idianNatriuretic peptide.B prohormone N-Terminal [Mass/volume] in Serum or [id number] 03:36:00 Test Item Value Reference Range Interpretation Comments N-term pro natriuretic peptide 3837 pg/mL 0-450 H (test code = N-term pro natriuretic peptide) [facility] Differential panel - [id number] 09:26:00 Test Item Value Reference Range Interpretation Comments white blood count (test code = 7.1 K/uL 4.0-12.3 white blood count) red blood count (test code = red 3.50 M/uL 3.80-5.80 L blood count) hemoglobin (test code = 11.2 g/dL 11.7-17.2 L hemoglobin) hematocrit (test code = 34.3 % 35.0-51.0 L hematocrit) Erythrocyte mean corpuscular 98.0 fL 83-100 volume [Entitic volume] (test code = 87602-8) mean corpuscular hemoglobin (test 32.0 pg 26.8-33.4 code = mean corpuscular hemoglobin) mean corpuscular HGB conc (test 32.7 g/dL 30-35 code = mean corpuscular HGB conc) red cell distribution width (test 15.2 % 12.0-14.0 H code = red cell distribution width) platelet count (test code = 205 K/uL 175-450 platelet count) mean platelet volume (test code = 9.6 fL 9.4-12.6 mean platelet volume) Neutrophils.segmented/100 74.2 % 44.7-82.4 leukocytes in Blood (test code = 83240-8) Granulocytes Immature [#/volume] 0.0 K/uL 0.0-0.03 in Blood (test code = 13905-7) lymphocyte% (test code = 16.1 % 10.0-50.0 lymphocyte%) mono % (test code = mono %) 7.4 % 3.9-13.4 eos % (test code = eos %) 1.6 % 0.0-6.4 Basophils/100 leukocytes in 0.4 % 0.2-1.2 Unspecified specimen (test code = 22022-3) Neutrophils.band form [#/volume] 5.25 K/uL 1.78-5.38 in Blood (test code = 70913-4) Lymphocytes [#/volume] in 1.1 K/uL 1.32-3.57 L Unspecified specimen by Automated count (test code = 19092-8) mono # (test code = mono #) 0.52 K/uL 0.30-0.82 eos # (test code = eos #) 0.11 K/uL 0.04-0.54 basophil # (test code = basophil 0.03 K/uL 0.01-0.08 #) NRBC% (test code = NRBC%) 0 /100 WBC 0-0.2 NRBC# (test code = NRBC#) 0 K/uL [facility], [id number] 09:26:00 NeutrophilsBandLymphocyteAtypical LymphMonocyteEosinophilBasophilPlatelet EstimatePlatelet MorphologyMacrocytosisRegency MeridianPT/[id number] 09:26:00 Test Item Value Reference Range Interpretation Comments prothrombin time (test code = 10.3 seconds 10.3-12.3 prothrombin time) INR in Blood by Coagulation 0.93 assay (test code = 38865-5) [facility]idianpartial thromboplastin [id number] 09:26:00 Test Item Value Reference Range Interpretation Comments INR in Blood by Coagulation 29.4 seconds 22.5-37.0 assay (test code = 05177-7) [facility] metabolic 2000 panel - Serum or Plasma 2019-08-13 09:26:00 Test Item Value Reference Range Interpretation Comments glucose (test code = glucose) 105 mg/dL 82-115 Urea nitrogen [Mass/volume] in 45 mg/dL 8-23 H Serum or Plasma (test code = 3094-0) osmolality calculated, serum (test 290 280-300 code = osmolality calculated, serum) creatinine (test code = 2.7 mg/dL 0.70-1.20 H creatinine) glomerular filtration rate (test 22.91 L code = glomerular filtration rate) Urea nitrogen/Creatinine [Mass 16.7 12-20 Ratio] in Serum or Plasma (test code = 3097-3) sodium level (test code = sodium 139 mmol/L 135-145 level) Potassium [Moles/volume] in Body 4.4 mmol/L 3.5-5.2 fluid (test code = 2821-7) chloride level (test code = 108 mmol/L 98-108 chloride level) CO2 (test code = CO2) 17 mmol/L 21-32 L anion gap (test code = anion gap) 18.4 mEq/L 12-20 calcium level (test code = calcium 9.1 mg/dL 8.8-10.2 level) total protein (test code = total 6.8 g/dL 6.6-8.7 protein) albumin (test code = albumin) 4.1 g/dL 3.5-5.2 globulin (test code = globulin) 2.7 gm/dL A/G ratio (test code = A/G ratio) 1.5 >1.0 bilirubin,total (test code = 0.4 mg/dL 0.0-1.2 bilirubin,total) AST/SGOT (test code = AST/SGOT) 20 U/L 15-40 Alanine aminotransferase 9 U/L 0-41 [Enzymatic activity/volume] in Serum or Plasma (test code = 1742-6) Alkaline phosphatase [Enzymatic 121 U/L 40-130 activity/volume] in Serum or Plasma (test code = 6768-6) [facility] GroupCreatine kinase [Enzymatic activity/volume] in Serum or [id number] 09:26:00 Test Item Value Reference Range Interpretation Comments creatine kinase (test code = creatine 119 U/L 20-200 kinase) [facility]idianNatriuretic peptide.B prohormone N-Terminal [Mass/volume] in Serum or [id number] 09:26:00 Test Item Value Reference Range Interpretation Comments N-term pro natriuretic peptide 8212 pg/mL 0-450 H (test code = N-term pro natriuretic peptide) [facility]idianTroponin I.cardiac [Mass/volume] in [id number] 09:26:00 Test Item Value Reference Range Interpretation Comments cardiac troponin I (test code = cardiac <0.30 0.0-0.5 troponin I) [facility]idianCreatine kinase.MB [Mass/volume] in Serum or Plasma 2019-08-13 09:26:00 Test Item Value Reference Range Interpretation Comments mass creatinine kinase-mb (test 5.6 NG/mL 0.0-3.6 H code = mass creatinine kinase-mb) [facility]idianBacteria identified in Abscess by Aerobe culture 2019-07-01 02:26:00Bacteria Absc Aerobe CultMatagoUMMC Holmes Countyantibiotic sensitivity testing, [id number] 02:26:00 Test Item Value Reference Range Interpretation Comments Gentamicin [Susceptibility] by <4 Minimum inhibitory concentration (KAUSHIK) (test code = 267-5) Ampicillin [Susceptibility] by 8 ug/mL Minimum inhibitory concentration (KAUSHIK) (test code = 28-1) Cefazolin [Susceptibility] by <8 Minimum inhibitory concentration (KAUSHIK) (test code = 76-0) Oxacillin [Susceptibility] by 0.5 ug/mL Minimum inhibitory concentration (KAUSHIK) (test code = 383-0) Penicillin [Susceptibility] by 8 ug/mL Minimum inhibitory concentration (KAUSHIK) (test code = 6932-8) Trimethoprim+Sulfamethoxazole =0.5 [Susceptibility] by Minimum inhibitory concentration (KAUSHIK) (test code = 516-5) Tetracycline [Susceptibility] by <4 Minimum inhibitory concentration (KAUSHIK) (test code = 496-0) Amoxicillin+Clavulanate =4/2 [Susceptibility] by Minimum inhibitory concentration (KAUSHIK) (test code = 20-8) Clindamycin [Susceptibility] by <0.5 Minimum inhibitory concentration (KAUSHIK) (test code = 193-3) Nitrofurantoin [Susceptibility] by <32 Minimum inhibitory concentration (KAUSHIK) (test code = 363-2) Erythromycin [Susceptibility] by >4 Minimum inhibitory concentration (KAUSHIK) (test code = 233-7) Vancomycin [Susceptibility] by 1 ug/mL Minimum inhibitory concentration (KAUSHIK) (test code = 524-9) Levofloxacin [Susceptibility] by <2 Minimum inhibitory concentration (KAUSHIK) (test code = 49633-8) Ceftriaxone [Susceptibility] by <8 Minimum inhibitory concentration (KAUSHIK) (test code = 141-2) Imipenem [Susceptibility] by <4 Minimum inhibitory concentration (KAUSHIK) (test code = 279-0) Ampicillin+Sulbactam =8/4 [Susceptibility] by Minimum inhibitory concentration (KAUSHIK) (test code = 32-3) Linezolid [Susceptibility] by 2 ug/mL Minimum inhibitory concentration (KAUSHIK) (test code = 61939-6) Meropenem [Susceptibility] by <4 Minimum inhibitory concentration (KAUSHIK) (test code = 6652-2) Daptomycin [Susceptibility] by <0.5 Minimum inhibitory concentration (KAUSHIK) (test code = 79952-6) Rifampin [Susceptibility] by <1 Minimum inhibitory concentration (KAUSHIK) (test code = 428-3) [facility]idianThyroid Stimulating [id number] 22:48:11 Test Item Value Reference Range Interpretation Comments TSH (test code = TSH) 3.010 mIU/mL 0.270-4.200 PSA [id number] 22:23:33 Test Item Value Reference Range Interpretation Comments PSA, Total (test <0.030 ng/mL 0.000-6.220 Prostate Sp ecific Antigen code = PSA, Test Informatio n:The Toal Total) PSA method is a pproved for use as an a id in the detection of pr ostate cancer when use d in conjunction wit h a digital rectal exam in men 50 and olde r. The total PSA metho d is also indicated for t he serial measurement of PSA to aid in the prognosi s and management of p rostate cancer patients . Elevated PSA concentrati ons can only suggest th e presence of prostate can cer until biopsy is perfo rmed. PSA concentration c an also be elevated in nick gn prostatic hyper plasia or inflammatory co nditions of the prostate . PSA is generally not e levated in healthy men or men with non-prostatic c arcinoma. Pro B Natriuretic [id number] 22:23:33 Test Item Value Reference Range Interpretation Comments NT-proBNP (test code = NT-proBNP) 628 pg/mL 0-449 H Comprehensive Metabolic [id number] 22:17:15 Test Item Value Reference Range Interpretation Comments Sodium Level (test code = Sodium 141.0 mmol/L 135.0-145.0 Level) Potassium Level (test code = 4.6 mmol/L 3.5-5.1 Potassium Level) Chloride Level (test code = 106 mmol/L 98-105 H Chloride Level) CO2 (test code = CO2) 21 mmol/L 22-29 L Anion Gap (test code = Anion 14 mmol/L 7-16 Gap) BUN (test code = BUN) 17.70 mg/dL 8.00-23.00 Creatinine Level (test code = 1.60 mg/dL 0.70-1.20 H Creatinine Level) BUN/Creat Ratio (test code = 11 N BUN/Creat Ratio) Glucose Level (test code = 95 mg/dL 70-115 Glucose Level) Calcium Level (test code = 8.7 mg/dL 8.3-10.5 Calcium Level) Alk Phos (test code = Alk Phos) 118 U/L 40-129 Bilirubin Total (test code = 0.4 mg/dL 0.1-0.9 Bilirubin Total) Albumin Level (test code = 4.1 g/dL 3.5-5.2 Albumin Level) Protein Total (test code = 6.1 g/dL 6.4-8.3 L Protein Total) ALT (test code = ALT) 11 U/L 1-41 AST (test code = AST) 20 U/L 1-40 Globulin (test code = Globulin) 2.0 g/dL 2.9-3.1 L A/G Ratio (test code = A/G 2.0 ratio N Ratio) Comprehensive Metabolic [id number] 22:17:15 Test Item Value Reference Range Interpretation Comments Sodium Level (test 141.0 mmol/L 135.0-145.0 code = Sodium Level) Potassium Level 4.6 mmol/L 3.5-5.1 (test code = Potassium Level) Chloride Level (test 106 mmol/L 98-105 H code = Chloride Level) CO2 (test code = 21 mmol/L 22-29 L CO2) Anion Gap (test code 14 mmol/L 7-16 = Anion Gap) BUN (test code = 17.70 mg/dL 8.00-23.00 BUN) Creatinine Level 1.60 mg/dL 0.70-1.20 H (test code = Creatinine Level) BUN/Creat Ratio 11 N (test code = BUN/Creat Ratio) Glucose Level (test 95 mg/dL 70-115 code = Glucose Level) Calcium Level (test 8.7 mg/dL 8.3-10.5 code = Calcium Level) Alk Phos (test code 118 U/L 40-129 = Alk Phos) Bilirubin Total 0.4 mg/dL 0.1-0.9 (test code = Bilirubin Total) Albumin Level (test 4.1 g/dL 3.5-5.2 code = Albumin Level) Protein Total (test 6.1 g/dL 6.4-8.3 L code = Protein Total) ALT (test code = 11 U/L 1-41 ALT) AST (test code = 20 U/L 1-40 AST) Globulin (test code 2.0 g/dL 2.9-3.1 L = Globulin) A/G Ratio (test code 2.0 ratio N = A/G Ratio) eGFR AA (test code = 51 mL/min/1.73 N eGFR (estimated eGFR AA) m2 Glomerular Filtration Rate ) is an estimated va lue, calculated from the patient's serum creatinine usin g the MDRD equation. It is NOT the patient 's actual GFR. The eGFR provides a more clinically usef ul measure of kidn ey disease than se rum creatinine alone.This calculation joanna es sex and race in to account, if the information is provided. If th e race is not provided, and t he patient is -Cathie n, multiply by 1.2 12. If sex is not provided, and t he patient is fema le, multiply by 0.7 42. Results for pat ients <18 years of ag e have not been validated by th e MDRD study and should be interpreted wit h caution. eGFR R esult Interpretation: eGFR > or = 60 is in the Normal RangeeGF R < 60 may mean kid radha diseaseeGFR < 1 5 may mean kidney failure Rang es recommended by the National Kidney Foundation, http://nkdep.ni h.gov Lipid [id number] 22:17:15 Test Item Value Reference Range Interpretation Comments Cholesterol Total 85 mg/dL 0-200 RISK OF HE ART (test code = DISEASEPublishe d by Cholesterol Total) [employer] Laura lyte Optimal Borderl ine Increased RiskC HOL <200 200-239 >2 40TRIG <150 150-199 >2 00HDL Male >60 <40H DL Female >60 <5 0LDL <100 130-159 >1 60LDL Near optimal is 100-129 Triglycerides (test 120 mg/dL 9-200 code = Triglycerides) HDL (test code = HDL) 31 mg/dL 40-60 L LDL (test code = LDL) 30 mg/dL 0-130 The eq uation being used in this calcula tion is LDL = (Chol - H DL) - (Trig / 5) VLDL (test code = 24 mg/dL 5-40 The equati on being used VLDL) in this calcula tion is VLDL = Trig / 5 Chol/HDL (test code = 2.7 ratio 0.0-5.0 Chol/HDL) LDL/HDL Ratio (test 1 N The equa tion being used code = LDL/HDL Ratio) in thi s calculation is LDL/HDL Ratio=L DL Calc/HDL Chol Comprehensive Metabolic [id number] 22:17:15 Test Item Value Reference Range Interpretation Comments Sodium Level (test 141.0 mmol/L 135.0-145.0 code = Sodium Level) Potassium Level 4.6 mmol/L 3.5-5.1 (test code = Potassium Level) Chloride Level (test 106 mmol/L 98-105 H code = Chloride Level) CO2 (test code = 21 mmol/L 22-29 L CO2) Anion Gap (test code 14 mmol/L 7-16 = Anion Gap) BUN (test code = 17.70 mg/dL 8.00-23.00 BUN) Creatinine Level 1.60 mg/dL 0.70-1.20 H (test code = Creatinine Level) BUN/Creat Ratio 11 N (test code = BUN/Creat Ratio) Glucose Level (test 95 mg/dL 70-115 code = Glucose Level) Calcium Level (test 8.7 mg/dL 8.3-10.5 code = Calcium Level) Alk Phos (test code 118 U/L 40-129 = Alk Phos) Bilirubin Total 0.4 mg/dL 0.1-0.9 (test code = Bilirubin Total) Albumin Level (test 4.1 g/dL 3.5-5.2 code = Albumin Level) Protein Total (test 6.1 g/dL 6.4-8.3 L code = Protein Total) ALT (test code = 11 U/L 1-41 ALT) AST (test code = 20 U/L 1-40 AST) Globulin (test code 2.0 g/dL 2.9-3.1 L = Globulin) A/G Ratio (test code 2.0 ratio N = A/G Ratio) eGFR AA (test code = 51 mL/min/1.73 N eGFR (estimated eGFR AA) m2 Glomerular Filtration Rate ) is an estimated va lue, calculated from the patient's serum creatinine usin g the MDRD equation. It is NOT the patient 's actual GFR. The eGFR provides a more clinically usef ul measure of kidn ey disease than se rum creatinine alone.This calculation joanna es sex and race in to account, if the information is provided. If th e race is not provided, and t he patient is -Cathie n, multiply by 1.2 12. If sex is not provided, and t he patient is fema le, multiply by 0.7 42. Results for pat ients <18 years of ag e have not been validated by th e MDRD study and should be interpreted wit h caution. eGFR R esult Interpretation: eGFR > or = 60 is in the Normal RangeeGF R < 60 may mean kid radha diseaseeGFR < 1 5 may mean kidney failure Rang es recommended by the National Kidney Foundation, http://nkdep.ni h.gov eGFR Non-AA (test 41.90 N eGFR (anita mated code = eGFR Non-AA) mL/min/1.73 m2 Glomer ular Filtration Rate ) is an estimated va lue, calculated from the patient's serum creatinine usin g the MDRD equation. It is NOT the patient 's actual GFR. The eGFR provides a more clinically usef ul measure of kidn ey disease than se rum creatinine alone.This calculation joanna es sex and race in to account, if the information is provided. If th e race is not provided, and t he patient is -Cathie n, multiply by 1.2 12. If sex is not provided, and t he patient is fema le, multiply by 0.7 42. Results for pat ients <18 years of ag e have not been validated by th e MDRD study and should be interpreted wit h caution. eGFR R esult Interpretation: eGFR > or = 60 is in the Normal RangeeGF R < 60 may mean kid radha diseaseeGFR < 1 5 may mean kidney failure Rang es recommended by the National Kidney Foundation, http://nkdep.ni h.gov XR Chest 1 View [id number] 07:58:22Patient: TYLER CLAYTON Date/Time03/13/2019 07:40 CDTReason for Exampre cardiac cath;Other (please specify)ReportEXAM: XR Chest 1 View FrontalHISTORY: Precardiac catheterLocation code R 16COMPARISON: None availableFINDINGS:There is biapical pleural thickening. 5 cm linear hyperdensity within the right lung apex could relate to scarring. There is mild diffuse chronic underlying interstitial lung change. Blunting at the costophrenic angles suggests the trace effusion versus pleural thickening. No pneumothorax.Atherosclerosis involves the thoracic aorta. Heavy curvilinear calcification superimposing the cardiac silhouette is likely valvular. Heart size however appears within normal limits.Osseous structures are unremarkable.IMPRESSION:1. Suspect heavy valvular (mitral) calcification. Correlate on echocardiogram findings.2. Right lung apicalscarring versus other lesion. Biapical pleural thickening. Mild underlying chronic interstitial lung disease. Suggest correlation with chest CT, nonemergent. Final Dictated by: MD Luis, Kimmie FDictated DT/TM: 03/13/2019 7:47 amSigned by: MD Luis, Kimmie FSigned (Electronic Signature): 03/13/2019 7:58 amMOLECULAR [id number] 14:47:00Negative (11/12/18 8:47 AM)[facility] [id number] 10:09:0058[facility] PANEL 2018-11-12 10:09:007.9[facility]CHE[facility] [id number] 10:09:0024[facility]CHE[facility] [id number] 10:09:0010.2[facility]annCHEM DFJSF6332-75-93 10:09:61217Eageulah HermannCHEM ASKVQ8501-00-95 10:09:0094[facility]annCHEM CJSYK7012-83-32 10:09:0024[facility]annCHEM RZFIU7997-92-38 10:09:001.19 [facility]annCHEM ZSMPU9715-43-96 10:09:64452Nccdfkyv HermannCHEM PANEL 2018-11-12 10:09:003.2[facility] YvmzweaVPXXLBBCZR5742-99-23 10:09:00 Test Item Value Reference Range Interpretation Comments INR (test code = INR) 1.15 1 0.85-1.17 [facility] MgjedjcBXYJTUDQNZ8144-21-45 10:09:00 Test Item Value Reference Range Interpretation Comments PT (test code = PT) 14.5 s 12.0-14.7 [facility] DlypsfyCSGZABXBKX2370-57-42 10:09:008.8[facility] HermannHEMATOLOGY 2018-11-12 10:09:000.7[facility] LtrrfrpHTUVJKRYWN5875-77-33 10:09:005.5[facility] ZxjnyavOUFMUNUVDC3272-68-07 10:09:000.2[facility] TezlchhMCXNAAKHVQ6223-18-12 10:09:0010.6[facility] YvdmsthUVLFZTQPFA2286-91-32 10:09:0079.4[facility] RYLRQMFUBZ5043-47-80 10:09:000.1[facility] XnyswcnZXOMSEIOLV7306-66-92 10:09:000.6 [facility] DvnzcbxVPDBDGWJQP7700-28-94 10:09:001.0[facility]annHEMATOLOGY 2018-11-12 10:09:006.9[facility] PxncwuwNGQGYSDXCD0998-57-97 10:09:0034.2[facility] VtvnwsyZHUSCNEHIZ5235-53-94 10:09:0014.4[facility] UjjwlcgEIBZESFABZ5575-49-94 10:09:78541Hutmuymh BmpjtevJICTLMGMDI4595-24-03 10:09:0098.4[facility] PENVNWADKQ9303-39-73 10:09:00 Test Item Value Reference Range Interpretation Comments MCH (test code = MCH) 33.7 pg 27.0-31.0 [facility] JdjrennERDEQRGLWD3407-56-54 10:09:006.9[facility]annHEMATOLOGY 2018-11-12 10:09:002.64[facility] ShhpdpkXYCDXVAWAW8395-92-05 10:09:008.9[facility] VnneqxpIQTKWEHDXF7772-91-33 10:09:0026.0[facility] HermannCARDIAC ENZYMES 2018-11-11 11:34:00<0.02[facility] JqrjbzeDBPNBLDTBOBM6251-87-09 11:34:11653 [facility] OxhwabqHSNCBPRGCDKB4685-99-77 11:34:0030[facility] HermannELECTROLYTES 2018-11-11 11:34:001.75[facility] OiaxlfmMDHHTYLBPYCP5273-68-59 11:34:004.0 [facility] SunsdbtYRYUVHWAHTEK9670-63-99 11:34:47517Hvxdotew HermannELECTROLYTES 2018-11-11 11:34:54218Bwadtocg PsqvaxgFEEHUMSJQPPM2600-53-34 11:34:0036[facility] HpzoiwySRDBQGVHBHFL5939-30-67 11:34:0017.0[facility] EtigznvVUYHKOGCZDFD4828-13-50 11:34:008.3[facility] FhmghocMPOHZMGJBJSZ2745-17-88 11:34:0021[facility] CARDIAC ZNGSCNJ8012-66-49 05:53:00<0.02[facility]annCHEM BIYQV9591-80-61 05:53:0086[facility]annCHEM IHUNL2520-67-99 05:53:83680Owhdvowm HermannCHEM QCSJN9997-05-42 05:53:0013[facility]annCHEM KJTSY3416-92-38 05:53:0018 [facility]annCHE[facility] BBOHR6192-77-74 05:53:000.4[facility]annCHEM PANEL 2018-11-11 05:53:000.2[facility]annCHEM XWQXB6078-67-03 05:53:003.1[facility]annCHEM YRHZN0654-77-46 05:53:006.6[facility]annCHEM MGEFA0206-97-40 05:53:000.2[facility]annCHEM UZKXA2401-31-73 05:53:00 Test Item Value Reference Range Interpretation Comments A/G Ratio (test code = A/G Ratio) 0.9 1 0.7-1.6 [facility]annCHEM PCDKV8010-84-07 05:53:003.5[facility] HermannELECTROLYTES 2018-11-11 05:53:0013.0[facility] TtoqjlgKPSKJVLPGLCP9945-08-01 05:53:0026[facility] IwdvyehYCLOWKYDESQU0552-55-64 05:53:45860Vbvqqxih RwsdcbdXCWKGWPWCENJ6328-79-92 05:53:008.0[facility] IixgoccNQHKPMOLJYRT1163-86-87 05:53:0023[facility] YZFGGAKFIWHQ8051-52-62 05:53:96426Voyprptp LhvuxtmPGCXMESPOPFX3612-55-70 05:53:004.0[facility] BxnxbozCJUWWMOPACWZ0764-06-00 05:53:002.28[facility] HZLUZMTTSLME0059-28-57 05:53:0028[facility] FwpuimyXVHEFAWJMJHN4238-72-23 05:53:00 129[facility] YcheewnLJDNHTDAUH6539-33-21 05:53:00 Test Item Value Reference Range Interpretation Comments INR (test code = INR) 2.02 1 0.85-1.17 [facility] AbbwtseTVLZZURYDC6055-20-82 05:53:00 Test Item Value Reference Range Interpretation Comments PT (test code = PT) 22.4 s 12.0-14.7 [facility] IaidtjyWEBQVSAHKP3522-60-30 05:53:00 Test Item Value Reference Range Interpretation Comments PTT (test code = PTT) 44.2 s 22.9-35.8 [facility] CtyjbvfVNPLTDCAUI8889-57-28 05:53:00 Test Item Value Reference Range Interpretation Comments MCH (test code = MCH) 33.6 pg 27.0-31.0 [facility] VexdxaoAXVZXPXCKV7726-42-41 05:53:009.3[facility]annHEMATOLOGY 2018-11-11 05:53:002.76[facility] WtlsozePKWDLZUSZG9352-31-59 05:53:0097.1[facility] GeumpdcDKRWATHKAA1689-52-15 05:53:0026.8[facility] LcyejkdXTFCEZPGAT3742-51-95 05:53:09483Ixciisym AowortbDVJRAIFUMP7113-47-45 05:53:0014.3[facility] QHFSMLZZOU1713-59-91 05:53:007.2[facility] JngjukkWUNIRUSOMZ0088-09-95 05:53:00 34.6[facility] OasgqbtAFVPYSAWCT9917-34-83 05:53:007.6[facility]annHEMATOLOGY 2018-11-11 05:53:000.6[facility] JzmjhooGJXIEZBHEU6400-98-52 05:53:001.2[facility] OzvuasqACRACPXCCD0916-39-31 05:53:006.1[facility] BmllhbaYNZTOWIADD4393-89-15 05:53:000.1[facility] SwicqeqCWLMUDZQKE4174-77-77 05:53:008.5[facility] GNUUSYNWWW3525-38-78 05:53:008.9[facility] DgcwbdwINMFLEYUUS7490-25-30 05:53:000.6 [facility] LjftxqeDLWMKDFZPQ5903-80-41 05:53:000.7[facility] HermannHEMATOLOGY 2018-11-11 05:53:0080.8[facility] HermannCHEM GZPVF2176-24-23 09:47:001.6[facility] HermannCHEM SUEXS2408-01-83 09:47:003.1[facility] YvuwhweBGXRYPHMFJXD7546-58-50 09:47:0010.6[facility] FmrzoiiWCQIAAUABDRF8580-67-43 09:47:0058[facility] SEBDFKJEQDXX5899-65-60 09:47:25398Llxiaijx JqjfzzdDZEEKVWRONIS3780-88-57 09:47:001.19[facility] StombrlNLMRMDIYRXOS9834-86-87 09:47:0022[facility] OTAFADUIEWPC2027-09-54 09:47:0029[facility] PzhyjzcLCRNAMEGGJGF3583-38-66 09:47:00 100[facility] CbtlxqtTEAAOKLYQHQU7218-79-85 09:47:003.6[facility] YNYYWNLRDWPY7434-98-03 09:47:0093[facility] FusyrmzCIQJLKZSWGKI6231-31-60 09:47:00 8.2[facility] QhpymnuLOFNUHMVHA5452-87-71 09:47:000.0[facility] HermannHEMATOLOGY 2018-06-03 09:47:003.9[facility] DicapqoBBZJTNFQHU2970-45-95 09:47:0012.1[facility] QxynbfmORISQWVJNH8731-65-79 09:47:000.5[facility] JipbvexLWVOLCQSGU1536-93-28 09:47:002.3[facility] GrxhvpvZTULFTKEIA9422-35-86 09:47:009.9[facility] ZIBLODCTEK0082-65-99 09:47:0075.2[facility] ZxmjguvQSYXDHEPDJ9287-88-37 09:47:00 0.1[facility] SaorvmoZJDVTDWMSD1713-25-32 09:47:000.6[facility] HermannHEMATOLOGY 2018-06-03 09:47:000.5[facility] HybpetgMLMVWPRAHB1139-86-80 09:47:006.7[facility] XkpucpbQMSNBZVIYO8715-69-22 09:47:65109Vaseaess DaziftjPEGDJAIWWP8442-50-18 09:47:0014.8[facility] RmaojayJSIDMCUZPV4156-20-23 09:47:0033.3[facility] SCUPLINTUT5978-79-56 09:47:00 Test Item Value Reference Range Interpretation Comments MCH (test code = MCH) 31.8 pg 27.0-31.0 [facility] ZwlhuzpTMDZFYECLN1129-13-59 09:47:0029.8[facility] HermannHEMATOLOGY 2018-06-03 09:47:0095.3[facility] YnadqwkHMFLTDNPNG5960-34-22 09:47:009.9[facility] AwkgjnpDMYRADOHLS9697-04-72 09:47:005.2[facility] TnpkrqqOPPTVBZFOG4188-55-84 09:47:003.13[facility] HermannCHEM MGOUH0448-75-94 18:58:004.3[facility]annCHEM ABLML4342-68-81 18:58:001.9[facility]annCHEM MTQNT1370-54-33 18:58:0049 [facility]annCHE[facility] OBJZX7094-04-53 18:58:0010.2[facility] HermannCHEM PANEL 2018-06-02 18:58:003.2[facility]annCHEM BNTRE2536-11-36 18:58:0097[facility]annCHEM GSVQB9468-71-01 18:58:008.6[facility]annCHEM CRJTW6058-03-80 18:58:0030[facility]annCHEM RFCRA3635-87-35 18:58:14360Xfqwwwdq HermannCHEM FYJGP1181-28-15 18:58:0025[facility]annCHEM KJVOR6143-33-24 18:58:001.38 [facility]annCHEM CQLLB5222-24-53 18:58:64166Kpxpizqn HermannNM BONE SCAN WHOLE EENJ8499-68-33 13:21:32CLINICAL INDICATION: dx: c34.11, Malignant neoplasm of upper lobe, right bronchus or lung, mets tothe ribsMODALITY: [employer] dual head gamma cameraTECHNIQUE: 25 mCi Tc 99m MDP are injected IV. After a suitable time delay, whole body imaging images are obtained.FINDINGS:COMPARISON: PET CT scan performed 04/17/2018, bone scan performed 12/06/2017.Symmetric bilateral renal function is observed.Arthritic changes are most prominent at the left C2-3 facet, medial compartment right knee.No lyticor blastic osseous metastases. Uptake noted previously over the medial right clavicle has almost completely resolved.IMPRESSION:Marked improvement in right medial clavicular uptake since 12/06/2017, nonew lesions suggesting active osseous metastasis.PQRS 147: 3570FCHEM AZGPM7359-32-00 10:19:002.4[facility]annCHEM OUASH4980-32-94 10:19:0071[facility]annCHEM OSKED5016-53-50 10:19:0012[facility]annCHEM TAHUX7751-17-75 10:19:0011 [facility]annCHEM ZEOHR6571-59-74 10:19:000.4[facility] HermannCHEM PANEL 2018-04-13 10:19:0069[facility]annCHEM RINCQ4599-57-34 10:19:0023[facility]annCHEM JLIGD8851-61-97 10:19:0087[facility]annCHEM UKSLB4399-63-28 10:19:001.01[facility]annCHEM KAOXH2416-75-55 10:19:34114Tpprzujd HermannCHEM JEHSE1599-15-67 10:19:55507Madyqkmp HermannCHEM GZXNF6510-64-84 10:19:003.4 [facility]annCHE[facility] LZXJP3166-60-73 10:19:005.6[facility] HermannCHEM PANEL 2018-04-13 10:19:0025[facility]annCHEM DNIOP9603-14-08 10:19:007.5[facility]annCHEM AOIBY6784-93-18 10:19:002.7[facility]annCHEM CMCQV8301-93-07 10:19:0011.4[facility]annCHEM SUAYP1337-26-57 10:19:002.9[facility]annCHEM EMEJB0949-72-07 10:19:00 Test Item Value Reference Range Interpretation Comments B/C Ratio (test code = B/C Ratio) 23 1 6-25 [facility]annCHEM DYOYX8209-34-90 10:19:00 Test Item Value Reference Range Interpretation Comments A/G Ratio (test code = A/G Ratio) 0.9 1 0.7-1.6 [facility] HermannCHEM EXDXR2767-93-54 10:19:001.7[facility]annHEMATOLOGY 2018-04-13 10:19:003.4[facility] ExxjndlLFUOVCJFGU8839-44-05 10:19:002.38[facility] AxweomjNKXNUHKBTS5763-57-29 10:19:008.1[facility] BquqnhuKWONTDHJCW2200-89-82 10:19:0023.5[facility] BkbkhldSXKBTWZESH3851-47-53 10:19:0098.9[facility] JVXLGYVDEN7789-82-49 10:19:0034.5[facility] TzeyjzkIMLVGBROBZ7898-93-07 10:19:00 Test Item Value Reference Range Interpretation Comments MCH (test code = MCH) 34.1 pg 27.0-31.0 [facility] CfhwnfkTGKELLOWCA9514-21-75 10:19:0016.7[facility] HermannHEMATOLOGY 2018-04-13 10:19:90495Mrpxuhoj LheqqqdCFIPKQQYUJ1595-99-59 10:19:006.1[facility] UgkrtnfRZMXIIPVDW0520-18-06 10:19:002.4[facility] CjmsqhyJSDPUCXDBR5326-14-79 10:19:0020.3[facility] YvoghziWZDFXCEJDX2413-03-26 10:19:0011.0[facility] UDJDUFHXFQ3749-69-59 10:19:000.7[facility] GhgdnncANYIZBLNXY0722-59-97 10:19:00 66.0[facility] CcamlfeHPGORRAOQK0175-72-62 10:19:000.1[facility]annHEMATOLOGY 2018-04-13 10:19:002.3[facility] TgikzcgICIEFDORAR9366-42-09 10:19:000.3[facility] TqhxhprZOANDAUWJS7357-70-83 10:19:000.4[facility] CsqbdpbEEXHHAEOYA8098-32-35 10:19:000.0[facility] HermannANEMIA FCAOX8776-49-97 18:44:0017.1[facility] ANEMIA FCHLQ3691-60-08 18:44:90579Pdvxyimp HermannCHEM WCGWS4362-92-01 18:44:00 101.9[facility] HermannCHEM QYDGY7726-01-56 10:57:001.7[facility] HermannCHEM PANEL 2018-04-12 10:57:003.2[facility] QfarhjnXKYOOZBPVKDV1584-95-05 10:57:0012.0 [facility] HjkyhltJQGVUMLAZHEI0295-42-14 10:57:00 Test Item Value Reference Range Interpretation Comments B/C Ratio (test code = B/C Ratio) 22 1 6-25 [facility] MriclhbMLXIKEAZIELB6345-65-00 10:57:003.1[facility] HermannELECTROLYTES 2018-04-12 10:57:00 Test Item Value Reference Range Interpretation Comments A/G Ratio (test code = A/G Ratio) 1.0 1 0.7-1.6 [facility] AtrxmdiRCROKJRSRRTG2153-95-13 10:57:000.5[facility] HermannELECTROLYTES 2018-04-12 10:57:0084[facility] IlcpqmcOFEOLBPPUDSL0696-97-71 10:57:003.1[facility] CqjiknwIDHIMQJUEDSI2876-75-47 10:57:0057[facility] AwxgfuvBWTGVPWORSJT5688-02-97 10:57:006.2[facility] WxnbzacAZCBNRQMBBEX1136-42-40 10:57:007.8[facility] HAILOCUDTAMH0919-16-15 10:57:0014[facility] LgfbqweDAIKCXCWXDZL2623-12-21 10:57:00 12[facility] YtkgzqvEIMRHHHPOTLF7412-33-06 10:57:13902Tezrfhde HermannELECTROLYTES 2018-04-12 10:57:0026[facility] OhbkltyCUHDPHKNKVHM9457-58-84 10:57:24799Wjuetnbl FbcgtbwESGZOYAMJOIC4384-38-86 10:57:004.0[facility] JcdugzbBBSQKFLFTZSQ6107-04-95 10:57:0027[facility] GijbelpHPGSXQJYMMBR7207-68-50 10:57:19470Hwyphuxu [facility] AWOBIPLCAAPI0561-79-21 10:57:001.21[facility] BjxkyspGVAPWSYSRK2925-03-73 10:57:00 0.1[facility] OvfzifeMBNPLWOLSY8777-74-59 10:57:000.2[facility]annHEMATOLOGY 2018-04-12 10:57:000.0[facility] GzgfromQJVAGOQTJO6589-41-19 10:57:003.8[facility] ZmtntovCUDQXVDNGH2138-09-00 10:57:001.2[facility] AmlpemoCDBIPFEXIS9142-76-58 10:57:000.2[facility] OrcsuojYDMALAKGVG5936-24-91 10:57:000.5[facility] EZIZKXGSPK7976-95-74 10:57:003.7[facility] OdwkilrJVDCDOAAQC3840-00-91 10:57:00 11.7[facility] TzplejdQERSVNHQRP5594-96-27 10:57:0083.1[facility]annHEMATOLOGY 2018-04-12 10:57:00 Test Item Value Reference Range Interpretation Comments PTT (test code = PTT) 31.6 s 22.9-35.8 [facility] AzbgoflVFYJTLYCFP8718-46-49 10:57:00 Test Item Value Reference Range Interpretation Comments PT (test code = PT) 14.0 s 12.0-14.7 [facility] UlyxntzTBUQEIEXXL7144-15-17 10:57:00 Test Item Value Reference Range Interpretation Comments INR (test code = INR) 1.08 1 0.85-1.17 [facility] UluvaerSXJEFOVPBJ3712-32-96 10:57:004.4[facility]annHEMATOLOGY 2018-04-12 10:57:002.62[facility] KjwlhmqTGLGFTHLBO6348-66-22 10:57:0099.1[facility] OdhgqziXYEDOHNRKM4732-98-85 10:57:0026.0[facility] BvydtlpNARLQAEVDK2354-54-00 10:57:009.0[facility] YvmskaxTOVLGZSWDA2815-17-74 10:57:00 Test Item Value Reference Range Interpretation Comments MCH (test code = MCH) 34.5 pg 27.0-31.0 [facility]qqvacbCFCWRNAQNU2046-52-01 10:57:0034.8[facility]annHEMATOLOGY 2018-04-12 10:57:76737Lqgpckne DccgnuuNIJSOTVTCQ6932-13-71 10:57:0017.1[facility] DkyrsmkIZRGKSCEJK7219-58-24 10:57:006.5[facility] HermannCARDIAC XKDMSBA8429-38-65 05:51:00<0.02[facility]annCARDIAC UQXJUZJ4779-61-47 05:51:0055[facility]annCARDIAC VUEBPGY8875-11-82 01:03:00<0.02[facility]annCARDIAC ENZYMES 2018-04-12 01:03:0065[facility]annURINE AND MFJJY8450-52-70 20:19:0012 [facility] QGLNC8176-57-34 20:19:00Negative *NA*(04/11/18 3:19 PM) [facility] KVUUE3629-02-47 20:19:00Negative (04/11/18 3:19 PM) [facility] SNHPX7384-81-34 20:19:00Negative (04/11/18 3:19 PM) [facility] DIVWV6358-07-03 20:19:00Negative (04/11/18 3:19 PM) [facility] MQBIR5990-51-02 20:19:001[facility]UR[facility] AND VZSHB6480-53-51 20:19:00Light Yellow *NA*(04/11/18 3:19 PM)[facility] XBPKH3514-42-91 20:19:00Clear (04/11/18 3:19 PM)[facility] GBTTW7598-76-44 20:19:00 Test Item Value Reference Range Interpretation Comments UA pH (test code = UA pH) 5.0 1 5.0-8.0 [facility] PMPNM2047-73-61 20:19:00 Test Item Value Reference Range Interpretation Comments UA Spec Grav (test code = UA Spec 1.009 1 Grav) [facility]annCARDIAC EZXBDRY5478-12-74 20:02:000.6[facility]annCARDIAC NZFBAKE6382-90-42 20:02:0070[facility]annCARDIAC HZJDLGL1273-01-68 20:02:00 <0.02[facility]annCARDIAC NFBEVSG7394-67-93 20:02:00 Test Item Value Reference Range Interpretation Comments CK MB Index (test code = CK MB Index) 0.9 1 <=2.5 [facility]annCHEM UHFIH8412-90-91 20:02:0042[facility] HermannCHEM PANEL 2018-04-11 20:02:00 Test Item Value Reference Range Interpretation Comments A/G Ratio (test code = A/G Ratio) 0.9 1 0.7-1.6 [facility]annCHEM UHATL6738-61-95 20:02:0098[facility]annCHEM PANEL 2018-04-11 20:02:0012.9[facility]annCHEM DKTXC3300-18-10 20:02:003.4[facility]annCHEM BWHEP6096-30-20 20:02:00 Test Item Value Reference Range Interpretation Comments B/C Ratio (test code = B/C Ratio) 20 1 05-12 [facility]annCHEM YELUS5680-19-62 20:02:0031[facility]annCHEM PANEL 2018-04-11 20:02:001.58[facility]annCHEM CVSJT7719-61-22 20:02:003.9[facility]annCHEM IPKSQ7168-01-42 20:02:0097[facility]annCHEM TAWXY4981-28-03 20:02:82262Cpebltgc HermannCHEM MVKMP9462-92-16 20:02:0015[facility]annCHEM YSSYC7072-05-81 20:02:0013[facility]annCHEM CDLJO9400-25-18 20:02:003.2 [facility]annCHEM HPNAS3051-12-93 20:02:000.7[facility]annCHEM PANEL 2018-04-11 20:02:0082[facility] HermannCHEM UQCBV6073-94-53 20:02:0027[facility]annCHEM KGYNS8364-08-79 20:02:006.6[facility]annCHEM AABJP5863-72-26 20:02:008.1[facility] GuakjweCYNMCIHZKZDSG8665-45-16 20:02:0011.7[facility] VCMWIXKWRP3225-14-15 20:02:00 Test Item Value Reference Range Interpretation Comments PT (test code = PT) 13.5 s 12.0-14.7 [facility] CpqcwdkDFLSJJHBVT6010-20-36 20:02:00 Test Item Value Reference Range Interpretation Comments INR (test code = INR) 1.03 1 0.85-1.17 [facility] LifecnpTGHLBNWUUE4197-47-35 20:02:007.1[facility] HermannHEMATOLOGY 2018-04-11 20:02:78588Sehpgceb IaqylmbFSQZIMVSGC5000-55-66 20:02:0017.8[facility] UjjfjulDUTJKFYDFE9666-55-67 20:02:0025.4[facility] GqxhccqCMHRDNSFAJ8365-15-40 20:02:0034.4[facility] AklzcvsDPSHKNPZJT9673-76-20 20:02:00 Test Item Value Reference Range Interpretation Comments MCH (test code = MCH) 34.3 pg 27.0-31.0 [facility] VyyakegIYRJSYYBML1806-12-82 20:02:0099.9[facility] HermannHEMATOLOGY 2018-04-11 20:02:008.7[facility] PgiyjwrRVFLARZLMQ0176-37-66 20:02:002.55[facility] SvjqocjWIOVZNCNUM0638-45-66 20:02:006.6[facility] PkjgemeTTFZAVWMMF9157-37-75 20:02:00 Test Item Value Reference Range Interpretation Comments PTT (test code = PTT) 33.5 s 22.9-35.8 [facility] YaitxgkXQCGDWIDNC2628-70-96 20:02:000.0[facility]annHEMATOLOGY 2018-04-11 20:02:000.7[facility] IpjrmgaQHVSIIUNMB4094-25-86 20:02:000.4[facility] BlbfwybBMPPMLDBDQ5835-93-63 20:02:000.7[facility] GttnbvbLAQVHZFPQM1079-19-22 20:02:004.8[facility] CoqcgcaEBCAIQTIZY7604-13-42 20:02:000.2[facility] EPIFESBODP7313-57-75 20:02:0010.1[facility] GxlyfafGYWWCBBPVM3754-12-01 20:02:00 10.8[facility] DzymrpsHQVSHSRXTZ8467-06-74 20:02:0072.4[facility] HermannHEMATOLOGY 2018-04-11 20:02:006.5[facility] MjkmfmaLQOEEBAEXW3469-45-14 11:42:00 Test Item Value Reference Range Interpretation Comments PTT (test code = PTT) 47.0 s 22.9-35.8 [facility]annCHEM ZGBVH8835-30-66 11:15:000.9[facility] HermannCHEM PANEL 2016-09-05 11:15:003.4[facility] HermannCHEM ELYDR3139-65-01 11:15:0025[facility] HermannCHEM LPKHJ3913-05-54 11:15:0012.9[facility] HermannCHEM LXMZE7224-24-86 11:15:0080[facility] HermannCHEM TEXRQ6305-26-65 11:15:0078[facility] HermannCHEM EVHHK0516-22-57 11:15:0014[facility] HermannCHEM KGAGG7492-66-77 11:15:000.6 [facility]annCHEM XETXC1105-46-47 11:15:0012[facility] HermannCHEM PANEL 2016-09-05 11:15:003.1[facility] HermannCHEM ZLJIJ5530-60-87 11:15:006.5[facility] HermannCHEM CUFFC7221-60-85 11:15:0027[facility] HermannCHEM KDYRU0101-75-06 11:15:57406Svdytsxk HermannCHEM GFLMQ1126-16-64 11:15:008.7[facility] HermannCHEM VBQZV7955-50-89 11:15:003.9[facility] HermannCHEM CMRFX7805-75-05 11:15:46352 [facility]annCHEM TXIRW2190-94-31 11:15:0023[facility] HermannCHEM PANEL 2016-09-05 11:15:000.93[facility] HermannCHEM MFTMB4703-39-00 11:15:92050Lucdnqkx HermannCHEM RPBON8009-39-75 11:15:003.2[facility]annCHEM SFNPV3737-29-53 11:15:001.6[facility] DouynrkDRVWDBBIYF4295-35-30 11:15:000.0[facility] BOFKOCILBA5347-16-76 11:15:007.8[facility] QxqlvisFKQXOPYDCB0634-10-25 11:15:00 32.6[facility] DmxdpglSABJMHAENN8986-13-45 11:15:000.2[facility]annHEMATOLOGY 2016-09-05 11:15:000.5[facility] ZqujygaNUAEJVDMVL4590-45-66 11:15:002.1[facility] NnxysadMGEKXHPQBE0622-54-22 11:15:0056.2[facility] VqrzzlzSMUJLFJHYS8811-99-01 11:15:003.5[facility] NxgkurkGTNCHJGMDC6509-78-48 11:15:000.6[facility] RDTPGUNIID6218-26-31 11:15:002.8[facility] KuppigkWENTVAHQSD5574-73-29 11:15:00 87.6[facility] YledvytFNAEDEBTFT4700-50-35 11:15:0035.6[facility]annHEMATOLOGY 2016-09-05 11:15:007.4[facility] AlweaslCJYLZUYMKJ7472-65-06 11:15:004.06[facility] TwmnpzpLHYKDJTNFB4669-39-52 11:15:0011.6[facility] PvlhpkuTWMKDEXBPE9908-77-96 11:15:006.3[facility] DjqtdgsXPKMFDCLTW9198-70-31 11:15:0016.6[facility] ZWMLHOZMTL4289-20-28 11:15:52752Xyjwzxxe RfpclbnTHOAXXAOMM4249-96-77 11:15:00 32.6[facility] EkzlftdJXYOGTLWJJ0216-64-44 11:15:00 Test Item Value Reference Range Interpretation Comments MCH (test code = MCH) 28.5 pg 27.0-31.0 [facility]annPARATHYROID IXEFQKJ7027-66-81 11:15:001.19[facility] PARATHYROID BKOSNLA7343-19-22 11:15:001.14[facility] DhbkrtuQJRVFYDLAW9042-32-54 05:31:00 Test Item Value Reference Range Interpretation Comments PTT (test code = PTT) 48.6 s 22.9-35.8 [facility] PKLSC8525-60-00 01:38:00Negative (09/04/16 8:38 PM) [facility] VLLIG1460-14-04 01:38:00Negative (09/04/16 8:38 PM) [facility] ZQQZO1413-62-96 01:38:00Negative (09/04/16 8:38 PM) [facility] GCSNJ4347-58-58 01:38:001[facility] NQSPX0357-45-40 01:38:001[facility] KQRWY7149-30-88 01:38:00 Negative *NA*(09/04/16 8:38 PM)[facility] RGLCB9498-26-46 01:38:00Clear (09/04/16 8:38 PM)[facility] XHDQN7207-70-61 01:38:001.009[facility] QJXJP4448-21-18 01:38:006.0[facility] ABNHU5712-84-66 01:38:00Light Yellow *NA*(09/04/16 8:38 PM) [facility]annBACTERIAL - GABPMAJH1393-51-86 00:56:00Negative (09/04/16 7:56 PM)[facility] GebmuxlPLSBVHNYGB2706-73-79 20:31:008.1[facility]annHEMATOLOGY 2016-09-04 20:31:001.8[facility] RhnwqwcYDXFQRIULQ5468-86-98 20:31:004.6[facility] WdwuorxRJLNOHKNZY1468-30-09 20:31:000.5[facility] NofbfffGWXCJKZOXL6890-60-56 20:31:0026.9[facility] TysbrjgUAWFMAUIRN3693-19-06 20:31:000.6[facility] KTTLMLTHPE9210-13-69 20:31:002.0[facility] MfmktjvXBEPYWLDCC8822-67-58 20:31:000.1 [facility] SiwsrzkAXUQLIRPNS1560-56-19 20:31:000.0[facility]annHEMATOLOGY 2016-09-04 20:31:0062.7[facility] RqrptbbGYPIVUIYUX4705-00-97 20:31:00 Test Item Value Reference Range Interpretation Comments PT (test code = PT) 13.7 s 12.0-14.7 [facility] GwyroanCHDXAZKARO9924-48-55 20:31:001.03[facility]annHEMATOLOGY 2016-09-04 20:31:00 Test Item Value Reference Range Interpretation Comments PTT (test code = PTT) 33.9 s 22.9-35.8 [facility] UrahdumBOMNMSHMSE1206-96-60 20:31:0033.0[facility]annHEMATOLOGY 2016-09-04 20:31:0012.1[facility] OtkoiiqSFTPJPKBOB7990-38-62 20:31:55567Jpdhcejb FysvbsdLWZMIAQEJW4930-80-54 20:31:0016.6[facility] IyiosxuLMKKDUBBLS3210-22-73 20:31:004.21[facility] GhtdmlmPTKCOJYBDA4606-59-74 20:31:007.4[facility] QNDKTMYYLY1471-88-15 20:31:0086.7[facility] TwirwfvDLPDWXGAWN7156-29-56 20:31:00 Test Item Value Reference Range Interpretation Comments MCH (test code = MCH) 28.6 pg 27.0-31.0 [facility] YpmrjthXAHDSHQTNJ5282-97-58 20:31:0036.5[facility]annHEMATOLOGY 2016-09-04 20:31:007.8[facility]annCHEM YWPFL7913-84-23 09:58:0076[facility]annCHEM HQLNX2215-57-65 09:58:0027[facility]annCHEM OQDAJ4023-23-96 09:58:48000Pqklkdxf HermannCHEM CAGYX4968-44-71 09:58:003.4[facility]annCHEM WIXVW2538-51-23 09:58:008.7[facility]annCHEM FOOLI0881-24-36 09:58:0013.4 [facility]annCHE[facility] BCVVO8941-00-72 09:58:36704Ouuigcdz HermannCHEM PANEL 2016-09-04 09:58:000.96[facility]annCHEM LKRZS9309-22-25 09:58:0029[facility]annCHEM BVHCN6281-23-68 09:58:0096[facility] YfhwhouVRXQGKGLVKEY8069-09-63 11:33:0011.7[facility] BnruyjtXFJJISGRJNTN4712-86-05 11:33:0071[facility] ZYRBLYLAXLFR0654-56-01 11:33:0029[facility] XnredklMSZDUMXBYNBZ9066-54-96 11:33:00 96[facility] OoozizgCGJVJEEKVPIO9097-15-71 11:33:001.02[facility] JOOQEDHJZTSZ4926-66-20 11:33:99147Rgnmprgz JafyatbJMNXBCJSBJQU9482-42-31 11:33:003.7[facility] PhzapbcLOUSLZVABCAV9805-07-26 11:33:94461Dzpy[facility]uu [place] EINJQJENIACC9483-69-63 11:33:009.0[facility] XkajktjJBDTLUECRWMV9319-41-78 11:33:0029[facility] DmwmxxsQNUJMLUUXT9138-98-36 11:33:002.1[facility] EWGDFYLEQD1682-35-98 11:33:006.6[facility] EpjmntrXVESSCIFXW5041-01-09 11:33:00 20.5[facility] GnlkceeRJEWOODHMI4703-33-84 11:33:0070.3[facility]annHEMATOLOGY 2016-09-03 11:33:006.2[facility] BxfwdhgNIKHUJIUMZ1638-50-36 11:33:000.5[facility] TrfdvjnQNWWNIRLDC8202-07-04 11:33:000.0[facility] BsxgydwUZIWBNEWWM3282-69-20 11:33:001.8[facility] NrcvcjkGQTGGFWAQL0603-85-77 11:33:000.2[facility] DQGPFSKJZP2352-06-65 11:33:000.6[facility] ZgmyvwzFDDEBHDGHV7221-05-46 11:33:65375 [facility] ZfkcwpnSONQCEVYSC0824-52-92 11:33:008.0[facility]annHEMATOLOGY 2016-09-03 11:33:0033.0[facility] OozygeyKVLJOEZWJW5776-97-00 11:33:0016.2[facility] DrielfeHAMPWNSOYS3827-17-29 11:33:00 Test Item Value Reference Range Interpretation Comments MCH (test code = MCH) 28.6 pg 27.0-31.0 [facility] NprzvevODXYYLYPVT8672-20-30 11:33:0086.7[facility]annHEMATOLOGY 2016-09-03 11:33:0037.0[facility] ElmiqszCYVYQKPCSC5472-21-78 11:33:0012.2[facility] MrvbhoxBQPPGPYFWU6177-70-66 11:33:004.26[facility] RnizgflIZZYTMRAYE2948-52-34 11:33:008.8[facility] HermannCARDIAC KOONWAW3664-73-72 01:35:0090[facility] CARDIAC YLXRIOS0435-86-05 01:35:000.02[facility] HLAWXUN2749-35-33 01:35:001.8[facility] DLTFHDO9257-39-21 01:35:002.0[facility] CARDIAC CDKBFPG2381-48-91 21:50:35746Txhynleq HermannCARDIAC FLOSRQE6037-08-36 21:50:00<0.02[facility]AC NOKREIJ5041-78-33 21:50:002.4[facility]AC AIXZTXX0217-90-15 21:50:002.4[facility]ann[facility]AC ENZYMES 2016-09-01 17:42:65700Kmmaipid HermannCARDIAC WUVHFHK7501-32-01 17:42:01306 [facility] AFEOBSI4358-96-98 17:42:00<0.02[facility] CARDIAC BBRGMXZ3828-94-44 17:42:001.8[facility] FLGPALF1077-18-08 17:42:001.1[facility]annCHEM JWJBW1075-63-88 17:42:0019[facility]annCHEM AHKJH2274-00-80 17:42:007.8[facility]annCHEM HTSJS5996-02-13 17:42:0037 [facility]annCHEM NJNHW1556-10-48 17:42:003.7[facility]annCHEM PANEL 2016-09-01 17:42:0092[facility]annCHEM FFRUO5709-85-51 17:42:0022[facility]annCHEM RKEIY6039-07-45 17:42:000.6[facility]annCHEM CHFVN8236-23-03 17:42:004.1[facility]annCHEM PGFON4311-98-88 17:42:000.9[facility] HWDZRGCEOS4876-61-98 17:42:000.95[facility] IrctrtyOOGKVUPHMT0076-64-54 17:42:00 Test Item Value Reference Range Interpretation Comments PT (test code = PT) 12.9 s 12.0-14.7 [facility] GumybmqUYCARMSZOQ8986-13-49 17:42:001+ (09/01/16 12:42 PM)[facility] GyozgfpJUUCWJOVOW5594-75-28 17:42:00 Test Item Value Reference Range Interpretation Comments Tot Cell Ct (test code = Tot Cell Ct) 100 1 [facility] PogynquAVAPVGZIBG6367-33-83 17:42:001+ *ABN*(09/01/16 12:42 PM)[facility] RpzuixoXLKFMPPCJD9196-75-43 17:42:00Normal (09/01/16 12:42 PM)[facility] SCIBIZPLLM5456-21-35 17:42:006.0[facility] UowtlugCUMLSAILKP5945-43-04 17:42:00 Normal (09/01/16 12:42 PM)[facility]annCHE[facility] GVZAO3323-43-46 11:30:001.7 [facility]annCHE[facility] TKJYM1398-23-78 11:30:0077[facility]annCHEM PANEL 2015-10-11 11:30:0011.2[facility]annCHEM NZQAJ7441-28-05 11:30:59691Xhrirops HermannCHEM JTNYE1808-41-82 11:30:004.2[facility]annCHEM BFIER2882-52-96 11:30:008.3[facility]annCHEM IIGVI3694-32-88 11:30:0025[facility]annCHEM MYMBS4523-07-75 11:30:47642Fbclaxhd HermannCHEM MGJSX8442-57-94 11:30:45023 [facility]annCHE[facility] DRHXR8937-77-28 11:30:000.96[facility]annCHEM PANEL 2015-10-11 11:30:0041[facility] ZkrfzggYYSQKFHNLOBY8369-01-68 11:29:0011.8[facility] RbehwouBITQNZYNCKRJ9604-64-66 11:29:0079[facility] CzxhyztHOFWNSVBFCSB1948-16-51 11:29:0025[facility] BljcfzjFPOVIRACEFJH9936-01-05 11:29:008.5[facility] GUTQOCIEDSEW1536-89-95 11:29:94413Xcqngxig NzhxbcaZJKCXQRNBYBZ3668-15-27 11:29:0044[facility] EgorsdxUWGZBSJNOFFA3596-49-08 11:29:74340Lpkzfmcw [facility] LOXFPUTMEKJN0684-22-81 11:29:000.94[facility] JsrouvjRDFNAFIKXVZQ6448-19-36 11:29:003.8[facility] AkkwmogJSDWXJUUUNVQ8924-84-41 11:29:19956Qwbwccph [facility] CHEM MQFDP3465-21-27 11:43:001.5[facility]annCHEM ONFQE9682-28-07 11:43:0075 [facility]annCHEM RHFJL0904-50-86 11:43:0035[facility]annCHEM PANEL 2015-10-08 11:43:000.98[facility] JlrvdjuBLFQBTGOJP4509-04-00 11:43:0027.6[facility] AwmgbrcHMVKUJWEGH7143-86-63 11:43:008.4[facility] MdbrstpWVFCRFCEMT0383-67-27 11:43:000.2[facility] KhtsabfTOFXRZYENW9488-75-03 11:43:001.4[facility] LNIXBSBMQT8468-02-03 11:43:002.2[facility] HkqwkflEIKNYIYXWE3445-22-04 11:43:000.1 [facility] MjrmsprVFITDUJYYD7887-87-96 11:43:005.1[facility] HermannHEMATOLOGY 2015-10-08 11:43:000.7[facility] NbvumbkQYADMYHZPF8342-70-69 11:43:000.0[facility] SxxqachGIMGDJVCOP9606-24-75 11:43:0062.4[facility] GradyjgNIOTQFIGXA9023-80-76 11:43:00Normal (10/08/15 5:43 AM)[facility] LqwfhdvXXIPSVJQBU0112-06-46 11:43:00 7.6[facility] ArolutkYZMUFGDURU7262-25-53 11:43:90121Gcrrifzs HermannHEMATOLOGY 2015-10-08 11:43:009.2[facility] ZhnplbdYAJWMUOIRE0289-06-57 11:43:002.98[facility] UjrwnjxFXLKXAGMAY9679-79-17 11:43:008.1[facility] SlfvizqVWLUZVRPAN3302-44-89 11:43:0014.5[facility] EoehiamFCOPZGCZVA8985-73-27 11:43:0032.7[facility] DMTBAPCPLN3806-76-97 11:43:00 Test Item Value Reference Range Interpretation Comments MCH (test code = MCH) 31.0 pg 27.0-31.0 [facility] ZqpxxueUTAUHRTHXS7631-54-11 11:43:0094.6[facility] HermannHEMATOLOGY 2015-10-08 11:43:0028.2[facility] HermannCHEM SHHJE9648-15-46 11:23:003.5[facility]annCHEM ADXKB0898-11-13 11:23:001.3[facility] YujgkxfLCPQVAOYHOQI6523-06-42 11:23:0011.8[facility] MtbrbatPUVXAKWNCBGZ7395-86-74 11:23:08698Ouuhjnov [facility] NQVZTJPBHDWX7123-89-72 11:23:008.2[facility] ZiyryakNKRIBPBEVREV9384-39-90 11:23:0029[facility] FufqyzcIGDLYLHDYHBT5186-64-12 11:23:0023[facility] BDDQQRXXJWMD8597-53-80 11:23:09823Ttqtreah CwvtmqtIDUUAFEZNDAM1724-16-36 11:23:25419Slykrbou JommnthYCBYKCWWYORI0372-39-83 11:23:003.8[facility] TRTTWEIRRDOH3999-95-05 11:23:0015[facility] YitvuhoCIBCKATASYEO8197-03-51 11:23:00 80[facility] ZsvpmjuICJHPVRBHDEJ7246-14-08 11:23:000.8[facility] HermannELECTROLYTES 2015-10-07 11:23:006.2[facility] OfwguhiGLEBKVECOHLP0849-70-99 11:23:000.8[facility] JuvqmnoLFFPTSJNIYCE1807-01-43 11:23:0013[facility] TljwjpxHEJDRXMTLSXI1782-48-77 11:23:003.4[facility] LwairtgFHKOGQJHVWDS6113-70-57 11:23:002.8[facility] UHITMTKHCZ0185-57-44 11:23:0011.7[facility] YruxqenLAECFCHBDK8272-38-85 11:23:00 6.1[facility] OytehmnIWEZRDZGRA7559-63-59 11:23:000.0[facility] HermannHEMATOLOGY 2015-10-07 11:23:000.3[facility] QpdmkkoRAVSGDVNMS6801-73-42 11:23:009.2[facility] HiaizroAAJSUHKXYN3343-24-83 11:23:001.3[facility] AgjqiacGIBDWXTFQA9316-42-07 11:23:000.7[facility] RyaqlmpLTYWOVFIWI8515-35-47 11:23:000.0[facility] HGCZBVEMRI5875-17-26 11:23:000.0[facility] AascmjhQZBIYFNEVM1660-89-57 11:23:00 81.9[facility] YqbewhuFHMTTIOHYL7273-96-81 11:23:0014.0[facility] HermannHEMATOLOGY 2015-10-07 11:23:53611Ygrlhwyy GsfltxkLLSXSJZYZM1775-36-13 11:23:007.8[facility] YsquidyEVWVHQRFUY3109-81-56 11:23:00 Test Item Value Reference Range Interpretation Comments MCH (test code = MCH) 30.9 pg 27.0-31.0 [facility] QhqgzsgNUWTXGXBND0673-36-30 11:23:0032.2[facility] HermannHEMATOLOGY 2015-10-07 11:23:0011.2[facility] XmrvbshSAPEIBNJHI7932-14-74 11:23:0011.2[facility] UegtdtwXDUUWMAUDP7589-53-86 11:23:003.62[facility] KfqssftAYZJWGVXIU6696-93-92 11:23:0096.0[facility] FrtgmdvLXJFYKBBLT8876-73-25 11:23:0034.8[facility] KNYZHSPLJV9168-91-50 11:06:0032.1[facility] FqcrazxFDLEFQFXVO1802-99-60 11:06:00 14.4[facility] LdwvoktCBIQUBZKBT0395-49-17 11:06:19329Zmcdjgzi HermannHEMATOLOGY 2015-10-06 11:06:007.7[facility] OwnwmmnYKBKHCQVIO6445-83-28 11:06:0010.2[facility] VbkvujgNGUXAAWZPE2629-50-70 11:06:0095.5[facility] GtjbuexQCMEIOATPO6582-21-53 11:06:003.33[facility] ThulaomVMMTSGCGLI8493-89-24 11:06:0031.8[facility] SDRIXQPNZV0408-60-81 11:06:00 Test Item Value Reference Range Interpretation Comments MCH (test code = MCH) 30.7 pg 27.0-31.0 [facility] QkjdsjkEAFROOICEN4144-30-52 11:06:008.1[facility] HermannHEMATOLOGY 2015-10-06 11:06:001.9[facility] DjwfqsvFYAFSIXAHP8750-71-96 11:06:000.6[facility] KjyhhidUDUEWBHTOZ8619-91-14 11:06:000.1[facility] OwcngteAMOUDVYSGW2925-06-90 11:06:000.0[facility] InrddypJPFYBEPILF6236-36-33 11:06:000.3[facility] MEZZIWUCVK8215-13-29 11:06:005.6[facility] EawnlrtRCHOWDXOIA9995-78-88 11:06:00 23.1[facility] HhyqpdbCJRCNWEMWU9260-74-90 11:06:0069.0[facility] HermannHEMATOLOGY 2015-10-06 11:06:006.9[facility] OyhvewnIFHMXYAKRO9879-50-06 11:06:000.7[facility]annURINE AND YZFDN9311-51-67 03:01:00Negative (10/05/15 9:01 PM)[facility] IWVOY0128-47-34 03:01:000.2[facility] STOOL 2015-10-06 03:01:00Negative (10/05/15 9:01 PM)[facility] STOOL 2015-10-06 03:01:00Negative (10/05/15 9:01 PM)[facility] STOOL 2015-10-06 03:01:00Negative *NA*(10/05/15 9:01 PM)[facility] VELVG1753-19-29 03:01:00 Test Item Value Reference Range Interpretation Comments UA Spec Grav (test code = UA Spec 1.010 1 Grav) [facility] OHVMJ1775-79-02 03:01:00 Test Item Value Reference Range Interpretation Comments UA pH (test code = UA pH) 7.5 1 5.0-8.0 [facility] WFOSM0218-18-43 03:01:00Clear (10/05/15 9:01 PM) [facility] SOLKP0979-11-24 03:01:00Yellow *NA*(10/05/15 9:01 PM) [facility]annCARDIAC GIDMGNK5224-01-81 00:18:001.4[facility]annCARDIAC JDKACLK4703-40-18 00:18:000.6[facility]annCARDIAC XDLYZMD7569-34-15 00:18:00 <0.02[facility]annCARD[facility]AC DZXCRBW6915-38-91 00:18:0043[facility]annCHEM FFUBW4682-49-98 00:18:0068[facility]annCHEM FYRWF1648-89-17 00:18:0018 [facility]annCHEM FYWJM3192-35-16 00:18:000.9[facility]annCHEM PANEL 2015-10-06 00:18:003.6[facility]annCHEM QMEDP7491-30-50 00:18:007.0[facility]annCHEM OWRZL5536-86-09 00:18:003.4[facility]annCHEM VRXWX6279-02-85 00:18:0014[facility]annCHEM MLACI2330-32-89 00:18:000.5[facility]annCHEM WEGKM3098-99-05 00:18:0020[facility]annCHEM PRJWH0175-58-85 00:18:0099 [facility] DkdqrwdGTGUJQCPLN6241-13-46 00:18:001.06[facility]annHEMATOLOGY 2015-10-06 00:18:00 Test Item Value Reference Range Interpretation Comments PT (test code = PT) 14.1 s 12.0-14.7 [facility] TpymfosUZGFJRGYZY0781-26-58 00:18:00 Test Item Value Reference Range Interpretation Comments PTT (test code = PTT) 27.8 s 22.9-35.8 [facility] HermannCHEM KMOIS5406-40-23 10:40:0065[facility]annCHEM PANEL 2015-06-17 10:40:16680Arktdhwr HermannCHEM WJVYD5138-38-19 10:40:001.1[facility]annCHEM FQSWF6061-72-60 10:40:84873Sneegxcw HermannCHEM NVXXE3408-33-33 10:40:003.6[facility]annCHEM SSKTP7179-14-74 10:40:0023[facility]annCHEM DBGWS9870-30-74 10:40:0012[facility]annCHEM UEFCQ7707-88-46 10:40:21506 [facility]annCHEM LZTDM7383-82-25 10:40:008.0[facility]annCHEM PANEL 2015-06-17 10:40:0012.emorial LtfqilmXKNCWMBYFY1037-62-42 10:40:006.2[facility] HtxgjijCJFSVVYCCY8177-15-38 10:40:004.8[facility] MmrslydFLSIICLITR7194-53-36 10:40:000.3[facility] JfjswnnMLHVQUJIUA5727-29-01 10:40:002.0[facility] VPWBMKBGEE0880-56-53 10:40:000.4[facility] FkkbfrhATOGTXRUEL6698-63-46 10:40:000.6 [facility] XqssxjuKUELPKKYTN8454-78-47 10:40:000.0[facility] HermannHEMATOLOGY 2015-06-17 10:40:0021.3[facility] XsgvjpiIMLGLQNAAI6775-53-22 10:40:006.7[facility] WnedsgoTHWTECTRGE4064-33-32 10:40:0066.9[facility] LiqeboaTDJSWDZJVT0317-99-20 10:40:008.0[facility] LisyxwfMEPYZVRLFO9614-92-01 10:40:0018.3[facility] AKLAJPNXWO2208-70-67 10:40:57801Yixwttzf QchyuigOLKNTEIMJO0635-73-89 10:40:00 34.0[facility] DhvgkwqSTQKBPLQNK7858-93-87 10:40:003.18[facility]annHEMATOLOGY 2015-06-17 10:40:009.3[facility] GvpncznHLKNWJPAYQ7308-89-46 10:40:00 Test Item Value Reference Range Interpretation Comments MCH (test code = MCH) 30.6 pg 27.0-31.0 [facility] EjqgdhwLWUKCMEKFZ5097-15-34 10:40:0028.6[facility]annHEMATOLOGY 2015-06-17 10:40:009.7[facility] BvtwxptOPOYTRSHQS9177-06-88 10:40:0090.0[facility] HermannCHEM MHPTB6912-94-17 11:29:0010[facility]annCHEM CCJOB3910-82-37 11:29:003.1[facility] HermannCHEM XTOEP1304-74-11 11:29:07290Ogodfhop HermannCHEM WGZTM7828-15-61 11:29:001.2[facility]annCHEM LLUFC4573-60-17 11:29:54714 [facility]annCHEM WXXJX8672-91-76 11:29:007.9[facility]annCHEM PANEL 2015-06-16 11:29:0025[facility]annCHEM DCBKL3723-66-26 11:29:92491Fjdjwuis HermannCHEM TDHXA9335-22-68 11:29:0059[facility]annCHEM RFGGU2984-14-86 11:29:0012.1[facility] MbaluwiMHEWZTREDB0435-59-61 11:29:000.0[facility] HOIRQXZDNH4743-76-68 11:29:000.7[facility] ZpbynznHGORFLANMF4905-47-60 11:29:000.8 [facility] FqxscguERTUYRQOXU5280-88-82 11:29:000.3[facility]annHEMATOLOGY 2015-06-16 11:29:009.1[facility] OssotnsJIYMBALMGT5001-04-10 11:29:002.0[facility] UglnxeyAHNQALSRRF1755-70-50 11:29:006.4[facility] QwuygbkRIOLNXZWKV8456-94-83 11:29:005.2[facility] JwnvtvmGWXNVUVQMV7650-20-80 11:29:0072.0[facility] CJTUAHBSBH9716-76-08 11:29:0016.1[facility] NyswebaONGCVNMNAL3804-82-61 11:29:00 Normal (06/16/15 6:29 AM)[facility] FrdbbwcTZUJILJDBD6428-93-03 11:29:007.9[facility] ZxfyqvrJHIJQJVSLG2985-93-88 11:29:33474Bxqhyvzg GzacczpLJQDFFUKGR4287-43-11 11:29:003.25[facility] YimbuyzKARAJXVOII7784-19-09 11:29:0012.6[facility] HHBATTLJXZ8716-60-67 11:29:0018.0[facility] WfukiilKXNGROEELG6704-28-05 11:29:00 9.4[facility] JszmlojVCFWLRSOFQ5023-57-78 11:29:0032.2[facility]annHEMATOLOGY 2015-06-16 11:29:00 Test Item Value Reference Range Interpretation Comments MCH (test code = MCH) 28.9 pg 27.0-31.0 [facility] RfpnuxhKSEXOLYWFL0488-46-76 11:29:0089.9[facility]annHEMATOLOGY 2015-06-16 11:29:0029.2[facility] HermannCHEM IUBKR4170-63-06 09:49:000.2[facility]annCHEM LDIGL1325-07-79 09:49:000.1[facility]annCHEM LEYBZ1676-85-06 09:49:000.3[facility] HermannCHEM NYQSR9582-58-58 09:49:0075[facility]annCHEM XCTKO5452-01-71 09:49:0024[facility]annCHEM YWFCP2220-88-88 09:49:000.6 [facility]annCHEM KPIQI4162-89-95 09:49:003.4[facility]annCHEM PANEL 2015-06-14 09:49:002.1[facility]annCHEM QZYMX3878-92-80 09:49:0014[facility]annCHEM MGGNP9060-67-60 09:49:005.5[facility]annCHEM GACDD6297-90-16 09:49:0053[facility]annCHEM MYIDR1194-05-85 09:49:0026[facility]annCHEM JECYU8066-32-51 09:49:44900Allgclnp HermannCHEM SFVZW3132-61-27 09:49:008.2 [facility]annCHEM LEFXV9821-45-25 09:49:0012.7[facility]annCHEM PANEL 2015-06-14 09:49:001.3[facility]annCHEM NWTQU0387-06-30 09:49:003.7[facility]annCHEM TDMRF4004-85-38 09:49:99609Ymhqfshr HermannCHEM HFHXZ4274-42-47 09:49:0014[facility]annCHEM RCWIH7072-40-70 09:49:0094[facility] OGNJZVTQVM1106-35-87 09:49:0033.0[facility] AjsbbmlWIJYZJNPMI8387-20-63 09:49:00 287[facility] YtlhoaiDTAVWUMKHN4536-70-15 09:49:007.1[facility]annHEMATOLOGY 2015-06-14 09:49:0018.4[facility] QdpzpeqIJIVONRYGC9852-13-60 09:49:00 Test Item Value Reference Range Interpretation Comments MCH (test code = MCH) 30.2 pg 27.0-31.0 [facility] SfdtypyXOSXKGCODJ1434-51-79 09:49:0028.3[facility] HermannHEMATOLOGY 2015-06-14 09:49:0091.3[facility] OdsjgcqSGUQWUEAXW2842-70-02 09:49:007.4[facility] YrpezkeTFCBMRSHQX6110-06-33 09:49:003.09[facility] LxnribyJSXSACIIIF7580-67-70 09:49:009.3[facility] LzevzdfSOBKBTGHEN9066-84-35 09:49:000.6[facility] JHHXLGLIGN4674-62-52 09:49:001.0[facility] JfwaujfSQVARUSIAC4452-30-23 09:49:003.9 [facility] PmtuzexVSFMGSBEDA1434-10-69 09:49:001.8[facility]annHEMATOLOGY 2015-06-14 09:49:000.0[facility] JkpozyjZYTZRYBVTK6307-35-69 09:49:008.4[facility] HwvnqyqRPVHJYKJWU7912-79-93 09:49:0013.7[facility] FkmevrdOSWJPBGCGN1489-63-97 09:49:0053.2[facility] MezhqlrDIACSXQMEZ1070-89-34 09:49:0024.5[facility] QXJMDMYHAI1341-97-11 09:49:000.2[facility] BjwbfcsWOUCSDJAQW4624-75-37 09:49:00 10.3[facility] AkgxvyaMJVPJREIQY4751-85-78 09:49:0035.6[facility] HermannMOLECULAR DZGTUCJPMU3386-34-09 19:09:00Negative (06/12/15 2:09 PM)[facility] HermannCARDIAC ZPOUOPC7461-51-72 11:00:00<0.02[facility] LjjfjskMURHWLVDUJGTG4690-53-46 11:00:0012.4[facility] HermannCHEM KTMGK0477-40-33 05:24:000.7[facility] ISOZCQIEJDTI2082-31-19 10:59:009.3[facility] XrwumehMLRYNOREWKJP7264-55-28 10:59:0083[facility] SenuukoUELPOIIUHWXN2550-30-36 10:59:0093[facility] MAFJPAYDYJYR6410-92-35 10:59:18355Qoqvdlbf JdyqxykAHEVUIPNRHFK0182-00-44 10:59:000.9[facility] BcgnsoaSTEYKFGUTFSC0798-72-20 10:59:008[facility] OCCGMYDUAVFO7594-99-17 10:59:003.3[facility] SofawgaBFSFSROIWSGW0386-87-65 10:59:98683Vdvdzqvs HcnoptaXVXTEEJTWDUO8447-24-05 10:59:0027[facility] VRTSCMIDGWEO3959-75-81 10:59:008.7[facility] GuaiyhyBPQNUGELKB0669-48-28 10:59:00 9.2[facility] NjxkwnhZDJNOXZCWI2959-02-97 10:59:007.4[facility] HermannHEMATOLOGY 2015-05-31 10:59:000.1[facility] DuqnifdULIVWSTOKZ5365-17-11 10:59:000.7[facility] IuqhgvfIBJJNDTRAW5235-72-91 10:59:000.8[facility] LyggdieUPMUHTLLFP8340-09-31 10:59:005.9[facility] OlqokngSMDZAHTPOU0439-40-32 10:59:000.9[facility] OWVCLYBEAU9420-40-11 10:59:002.3[facility] HavaattYEYFPODDBL5357-08-75 10:59:00 23.3[facility] DvnbgcyEOWXMYSCLJ2351-74-27 10:59:0059.3[facility] HermannHEMATOLOGY 2015-05-31 10:59:0033.4[facility] GfwzmtwRRGGOEGBJP9672-56-19 10:59:00 Test Item Value Reference Range Interpretation Comments MCH (test code = MCH) 29.9 pg 27.0-31.0 [facility] CadbzrvHTGCDKDBEF8086-25-29 10:59:0089.7[facility] HermannHEMATOLOGY 2015-05-31 10:59:007.9[facility] OsllzhnWZNFMTFZVX9051-54-96 10:59:15526Eoyygicl HsfublnBDYTFPWBLH0877-26-94 10:59:0017.2[facility] AygfmreLPRWJHPQXC9969-87-26 10:59:0010.0[facility] PocuzpeAOXZBCPABJ3392-75-07 10:59:003.45[facility] INZIQNOJVN6109-70-18 10:59:0030.9[facility] CtaudqfJYBLWWAQBS7942-74-12 10:59:00 10.3[facility] HermannCHEM TJIHZ1783-46-12 10:47:000.9[facility] HermannELECTROLYTES 2015-05-30 10:47:0012.7[facility] CnzjzhrSXDCIYEFQEJR7592-07-75 10:47:0073[facility] AwlyojkAWZWLRYFFLFQ5598-64-13 10:47:0025[facility] CkgwskbIFEEEJFGYPVS4809-15-01 10:47:008.8[facility] GkddpxoDHMLIPHBULAK0022-62-53 10:47:12082Pbpbevsn [facility] UBANBSFUHNIY7640-19-02 10:47:57940Ijprajce IqevonqYXVPZPPDPQYC5449-64-46 10:47:009[facility] JiwiwnxDDTKCCIGTNWN2692-88-19 10:47:001.0[facility] AQBIHUNGKDAX7546-31-97 10:47:003.7[facility] HzhbyymCFNLAYIWQLMP0508-30-26 10:47:64432Byabgaub EnncmxlFYWUWKYOCH3878-18-63 10:47:0017.2[facility] XWRGCSEXCJ8918-83-05 10:47:53995Avzzpcox EwbjhuvRURJPQUSBT4596-21-12 10:47:008.0 [facility] AgmrmflBESURQYJFS8728-56-88 10:47:0030.2[facility] HermannHEMATOLOGY 2015-05-30 10:47:0089.6[facility] BleskimPMAKHEUSAE0092-92-23 10:47:00 Test Item Value Reference Range Interpretation Comments MCH (test code = MCH) 29.4 pg 27.0-31.0 [facility] GnczcmwXZOMYXEKUX7559-47-57 10:47:0032.8[facility]annHEMATOLOGY 2015-05-30 10:47:0010.0[facility] NmnizeoNYHWHXUENM1715-90-90 10:47:003.37[facility] TqoymdkBSAHDDAJHT8029-66-36 10:47:009.9[facility] SsvomjaSNFPTUOODN8950-40-98 10:47:001.06[facility] YvugpomOPIESUMARB5843-55-88 10:47:00 Test Item Value Reference Range Interpretation Comments PTT (test code = PTT) 35.7 s 22.9-35.8 [facility] ShmzgmnDWQVEXCAOY4055-69-84 10:47:00 Test Item Value Reference Range Interpretation Comments PT (test code = PT) 13.8 s 12.0-14.7 [facility] BsljuqxGGOHADGRSI7645-09-48 10:47:000.6[facility]HE[facility]OLOGY 2015-05-30 10:47:000.1[facility] FegjufrROJSBJTRCW8248-18-56 10:47:000.9[facility] GdyoxtdFSUNKWZIZJ1452-19-95 10:47:000.8[facility] UnemwnnTOOMFPCFUQ0505-74-49 10:47:006.2[facility] FrcbaaaRAETTPUXDY0358-08-39 10:47:002.3[facility] KARYXOJVMY8169-91-58 10:47:0061.8[facility] PehqjnfFPBKJZGCEJ7684-14-12 10:47:00 22.6[facility] QnlfouvKYIAHFEZNH2528-16-06 10:47:008.6[facility]annHEMATOLOGY 2015-05-30 10:47:006.2[facility]annCHEM BEVVM7905-99-43 11:13:0083[facility]annCHEM TPLRH2957-75-38 11:13:008.6[facility]annCHEM VASLU6510-04-21 11:13:70731Rnksgbhj HermannCHEM ZDDRG4873-46-24 11:13:0024[facility]annCHEM BBGJL6524-41-10 11:13:22162Muhotdcy HermannCHEM QALEM5178-59-53 11:13:000.9 [facility]annCHE[facility] XLDWN6107-56-03 11:13:44336Jmnqndfm HermannCHEM PANEL 2015-05-29 11:13:0010[facility]annCHEM XXUUK6692-61-41 11:13:003.3[facility]annCHEM GNOIA1371-62-56 11:13:0012.3[facility] LpdvgqqWFWOPAJDLY7503-79-77 11:13:0017.2[facility] KtdqpjmEJBYVGLVFO8614-40-74 11:13:0032.9[facility] GGHUXPSGYA9831-55-06 11:13:007.7[facility] MxojkivAHFUBFWMRJ6887-89-15 11:13:48694 [facility] JqgshjjHZKUAMDMOH2253-94-06 11:13:0030.7[facility]annHEMATOLOGY 2015-05-29 11:13:0010.1[facility] XpuuiawYDXMNGDUNG6619-64-81 11:13:0089.0[facility] TmcqxwoRSDRVOTJLH3077-75-68 11:13:00 Test Item Value Reference Range Interpretation Comments MCH (test code = MCH) 29.3 pg 27.0-31.0 [facility] ScqijvhFGMDKPWGMM8293-14-16 11:13:003.45[facility]annHEMATOLOGY 2015-05-29 11:13:009.5[facility] MlhifxdVTCRGKVKXO4441-53-19 11:13:001.03[facility] KagmjwfNLPRTYMBJJ6585-02-56 11:13:00 Test Item Value Reference Range Interpretation Comments PTT (test code = PTT) 36.4 s 22.9-35.8 [facility] ZjpilfrGKKXVTHLUO2731-79-32 11:13:00 Test Item Value Reference Range Interpretation Comments PT (test code = PT) 13.5 s 12.0-14.7 [facility] LwywxsfALMUTBYRNL7195-90-12 11:13:005.9[facility]annHEMATOLOGY 2015-05-29 11:13:005.0[facility] XcmssqqCBWRWIVSHO9320-23-89 11:13:002.2[facility] QxjbhjxHJIKNJYQWI8050-37-17 11:13:000.4[facility] XbebcpcLVCKIYNFHC1000-73-69 11:13:000.5[facility] AyzpiegIBYCENVUIP9931-78-98 11:13:000.8[facility] LSCPHBCSRO3562-18-31 11:13:000.0[facility] VkdxahqHSRDIXNTMD8991-94-96 11:13:00 23.6[facility] RczmgxpANEXVRHKDT3905-39-92 11:13:0062.5[facility]annHEMATOLOGY 2015-05-29 11:13:008.5[facility] ZzqmyagSBJODYGJDT7596-71-08 11:13:00Normal (05/29/15 6:13 AM)[facility] WxojftsXYYWKCCHYX3399-17-70 11:07:001.11[facility] LpcruwaSDTFCFLUPL3789-66-66 11:07:00 Test Item Value Reference Range Interpretation Comments PTT (test code = PTT) 41.8 s 22.9-35.8 [facility] XvbvhjfYTXYPENAVP0248-38-40 11:07:00 Test Item Value Reference Range Interpretation Comments PT (test code = PT) 14.4 s 12.0-14.7 [facility] YmsmxbtINUUWIKBHJ2515-05-41 18:11:0023.3[facility] HermannTOXICOLOGY 2015-05-25 18:17:0184646530Hoavjpwe OdfeyrvJPKUZLRZCU6764-10-77 18:17:0034.6 [facility]annMOLECULAR KJYUYSKZZH5218-99-28 03:46:00Negative (05/24/15 10:46 PM)[facility]annCHEM OHQJO1702-11-95 11:53:000.5[facility]annCHEM PANEL 2015-05-24 11:53:004.3[facility]annCHEM BPSFU4749-02-84 11:53:000.4[facility]annCHEM DZBWY5728-24-00 11:53:0023[facility]annCHEM SVPKP0184-22-53 11:53:0026[facility]annCHEM QMVQX4029-05-63 11:53:000.2[facility]annCHEM PNVYB3728-97-74 11:53:63163Zdekjuau HermannCHEM UJFSO8853-66-62 11:53:000.6 [facility]annCHE[facility] IEMCE0937-81-76 11:53:006.4[facility]annCHEM PANEL 2015-05-24 11:53:002.1[facility] DjmhqtfPCRRYROEZH3187-82-15 11:25:0014.1[facility] QktvyqaPCEFNPPYSH2911-32-74 18:42:2551741211Gkmvapzi GsytsifXNSECPICEB1367-63-15 18:42:0018.2[facility]annURINE AND DCCLM4944-35-62 16:23:00Positive *ABN*(05/20/15 11:23 AM)[facility]annCHEM OCPQE4191-62-71 11:05:002.0[facility]annCHEM UGOUY2979-86-82 11:05:000.7[facility]annCHEM FEMAJ5208-06-82 11:05:16312Xetmoswz HermannCHEM CXRGN1128-99-80 11:05:0031[facility]annCHEM QYBEO8959-75-73 11:05:0025[facility]annCHEM BZJOL4354-80-08 11:05:006.3 [facility]annCHE[facility] OGBKJ0127-10-49 11:05:0028[facility]annCHEM PANEL 2015-05-20 11:05:000.5[facility]annCHEM GHRCU6629-83-20 11:05:004.3[facility] JisxpjfJFPEOICBHW6993-32-07 18:35:523949Bxzsyhlf EmfbzpwJUJRIROFFI6696-98-43 18:35:0016.7[facility]annBLOOD BANK MEWKHVP2253-61-73 11:30:00Negative (05/19/15 6:30 AM)[facility]BL[facility] B[facility] XJRCRSV0294-02-32 11:25:00Product available 1(05/19/15 6:25 AM)[facility]annCHEM JDHAD1913-54-17 10:45:001.8 [facility]annCHEM MMWOM2531-45-00 10:45:0024[facility]annCHEM PANEL 2015-05-19 10:45:003.8[facility]annCHEM ELCBJ8868-75-22 10:45:000.5[facility]annCHEM NLGUA5045-27-54 10:45:0028[facility]annCHEM VWUAA9850-53-13 10:45:53840Zolhchyu HermannCHEM HGBIW9066-53-46 10:45:000.5[facility]annCHEM CSWRM5514-03-56 10:45:005.6[facility]annCHEM LUJMD2580-31-81 10:45:0027 [facility]annCHEM FAEBI8418-79-91 12:42:000.2[facility]annCHEM PANEL 2015-05-18 12:42:0026[facility]annCHEM CTMSW4302-03-40 12:42:004.4[facility]annCHEM QCCLF1924-50-61 12:42:001.5[facility] YytqwnsBNIWFOCWUY1145-26-99 12:42:000.6[facility]annCHEM QFAJS6908-98-90 03:20:002.2[facility]annURINE AND ISORV6925-60-59 23:27:00Negative *NA*(05/16/15 6:27 PM)[facility] TPOAK8599-86-05 23:27:00 Test Item Value Reference Range Interpretation Comments UA Spec Grav (test code = UA Spec 1.010 1 Grav) [facility] XRKGK8028-25-23 23:27:00Clear (05/16/15 6:27 PM) [facility] KVCLK1834-99-82 23:27:00 Test Item Value Reference Range Interpretation Comments UA pH (test code = UA pH) 5.5 1 5.0-8.0 [facility] YKIXS8531-80-34 23:27:00Yellow *NA*(05/16/15 6:27 PM) [facility] EXZJO0097-29-25 23:27:00Negative (05/16/15 6:27 PM) [facility] HQLAI2070-27-67 23:27:000.2[facility] SAFKN3083-10-32 23:27:00Negative (05/16/15 6:27 PM)[facility] ZIWGU5193-29-40 23:27:00Negative (05/16/15 6:27 PM)[facility] EBULM0963-36-89 23:27:00None Seen (05/16/15 6:27 PM)[facility] NLQXK3365-80-46 23:27:0011-20 (05/16/15 6:27 PM)[facility]annCARDIAC ENZYMES 2015-05-16 22:24:00<0.02[facility]annCARDIAC PQSXVBG2540-13-88 22:24:0011 [facility]annCARDIAC ZSQIPJH0438-97-40 22:24:00<0.5[facility]annCARDIAC CVGTFXG2613-26-03 22:24:00<4.5[facility] QgooshpGZGRAEWBUN6237-43-50 22:24:00 1+ *ABN*(05/16/15 5:24 PM)[facility] LqpjrzkYQEIGVBPUS3117-01-67 22:24:00Occasional *ABN*(05/16/15 5:24 PM)[facility] SviaaosGYBOMYMPEV1155-26-30 22:24:001+ *ABN*(05/16/15 5:24 PM)[facility] NzvqambUWLUTXECPP2231-81-97 22:24:00Normal (05/16/15 5:24 PM)[facility] LFJQN1525-33-81 22:24:00Negative (05/16/15 5:24 PM)[facility]annCHEM VQLQI0864-22-49 11:34:0059[facility] CHEM UWVKG4647-05-85 11:34:0023[facility]annCHE[facility] UIDSK2069-66-16 11:34:004.0 [facility]annCHE[facility] GMGVO5059-64-80 11:34:16756Voygbans HermannCHEM PANEL 2015-04-27 11:34:008.2[facility]annCHEM ZQBYL0607-06-59 11:34:0035[facility]annCHE[facility] FTHDD2940-14-88 11:34:001.2[facility]annCHEM YVJHL5858-45-75 11:34:50554Ynsacsib HermannCHEM TEAHR5644-85-28 11:34:97679Izfvtxsm HermannCHEM CKSYL6908-99-48 11:34:0013.0[facility] BhhmcfzELPLLGOJSP2297-99-88 11:34:000.0 [facility] XbctspaIZHGYFCFWD2259-12-74 11:34:0016.8[facility]annHEMATOLOGY 2015-04-27 11:34:000.4[facility] QbsuiobAVJRCSRNUC4386-54-32 11:34:001.5[facility] CygrafsDBQNLXQAVW6711-61-71 11:34:004.6[facility] JgptluoAYTIHMJIAG7525-21-38 11:34:000.1[facility] JjpufdxVFLMMCFTLC6901-00-19 11:34:001.3[facility] SAHBWVMNQG2195-86-33 11:34:0020.2[facility] LghmzfhDAQDFJNPSZ6525-44-34 11:34:00 1.0[facility] ZkiwcjzIFVYGRXCOI8440-67-87 11:34:0061.6[facility]annHEMATOLOGY 2015-04-27 11:34:0032.6[facility] PgwuyffWMTMXDZVJR9237-77-04 11:34:64228Kknblxms PiupggqSCCYLVJJZC4682-39-00 11:34:00 Test Item Value Reference Range Interpretation Comments MCH (test code = MCH) 29.4 pg 27.0-31.0 [facility] GpekpnsJNVZDQEJOC0257-01-27 11:34:007.5[facility]annHEMATOLOGY 2015-04-27 11:34:002.87[facility] NjcgavaMEBOJXYWQU2104-15-31 11:34:008.4[facility] DhffbncWGORLOHREU0722-80-81 11:34:0090.1[facility] ChxbrinIFKLHJODOD8226-55-50 11:34:0025.9[facility] SooumpuSGQHZAPFWK4512-04-69 11:34:0015.6[facility] WPJSADTXVR7545-06-15 11:34:008.4[facility]annCHEM WUFUJ4877-47-78 17:11:0059 [facility]annCHEM OWMAQ0868-67-91 17:11:008.4[facility]annCHEM PANEL 2015-04-24 17:11:0024[facility]annCHEM ZACEN1733-28-31 17:11:47010Vjnplnig HermannCHEM GMLVG7836-10-70 17:11:0096[facility]annCHEM TSQSJ4610-59-77 17:11:005.2[facility]annCHEM WZHSK1914-44-95 17:11:92877Dwxrrvyx HermannCHEM ZQBAK9333-06-99 17:11:001.2[facility]annCHEM VXTAW0295-50-31 17:11:0035 [facility]annCHE[facility] WYPRT1411-46-47 17:11:0014.2[facility] NMDROZT0546-84-49 03:58:00Negative (04/20/15 10:58 PM)[facility] CGBQVPY2259-67-59 02:05:00Product available 1(04/20/15 9:05 PM)[facility] OOZWRRZQPE0330-18-03 11:35:009.0[facility] QxmjlypXPDXOSMOCK5050-70-98 11:35:00 16.2[facility] VkbppsmQHIGSIZXXI7120-63-97 11:35:0033.5[facility]annHEMATOLOGY 2015-04-20 11:35:00 Test Item Value Reference Range Interpretation Comments MCH (test code = MCH) 30.8 pg 27.0-31.0 [facility] HwxdgifMDVIIBNNFB4881-73-48 11:35:0091.8[facility] HermannHEMATOLOGY 2015-04-20 11:35:0024.5[facility] GrhxrfoLHRYADPZDB8960-30-64 11:35:008.2[facility] XpuqyifIHTSBRQGQD1444-84-47 11:35:002.66[facility] GskrsauHHHEWBBNPH6983-23-09 11:35:008.7[facility] TcffqleZWIKTFBZPR6910-13-22 11:35:73081Vjbvjrql [facility] AORTLTDVPQ3893-15-85 11:35:001.1[facility] YifpsgnPXUBWXSXZS7664-88-93 11:35:000.0 [facility] KjkexqsRFLRKBQEOB5364-48-26 11:35:000.1[facility]annHEMATOLOGY 2015-04-20 11:35:001.4[facility] XlriadnQVDWQMPIOV3313-37-38 11:35:006.0[facility] XywhfpnZMVGUZLNPZ7923-73-23 11:35:000.4[facility] VfuzxtuSAPXORSOHD8162-62-60 11:35:001.5[facility] BrfevgkSPWWECKCDU9307-59-61 11:35:0012.7[facility] CJZRUYZEVV2458-42-80 11:35:0016.6[facility] OvvpsdaPWVWRPWVAG0584-12-12 11:35:00 68.8[facility]annCHEM HBWUM1818-35-61 11:21:0054[facility]annCHEM PANEL 2015-04-19 11:21:004.1[facility]annCHEM UIYQT5839-91-34 11:21:001.3[facility]annCHEM DGCDK7231-88-52 11:21:59707Ghgkfsyj HermannCHEM JQMHB7586-84-44 11:21:0041[facility]annCHEM DXRZU8113-54-80 11:21:00317Baxomvil HermannCHEM KZYXI3570-55-77 11:21:0031[facility]annCHE[facility] EMSMK3198-67-56 11:21:13463 [facility]annCHE[facility] UFQPP0875-50-46 11:21:0028[facility]annCHEM PANEL 2015-04-19 11:21:000.6[facility]annCHEM FFKRM4259-79-52 11:21:005.7[facility]annCHEM YOMZL3651-85-03 11:21:001.9[facility]annCHEM ZGILQ8671-79-99 11:21:0098[facility]annCHEM ANKWO0661-76-56 11:21:0022[facility]annCHEM PYVBL9200-13-26 11:21:007.8[facility]annCHEM SOUZU8057-09-75 11:21:0015.1 [facility]annCHEM ALUCC0963-54-43 11:21:0032[facility]annCHEM PANEL 2015-04-19 11:21:003.8[facility]annCHEM KGNPY3195-53-76 11:21:000.5[facility] MultbsgVLPRCBZRFU2079-23-09 11:21:65706Ahbkacqu FneaqmtCFLSLNKHNI2516-10-33 11:21:009.1[facility] PardptlMMHLLIAQTM4176-62-68 11:21:0033.9[facility] KZFOKQNYFQ7819-93-97 11:21:0016.0[facility] IpexfubVEYXUKQYQW8389-77-66 11:21:00 12.7[facility] EnrjcebPXCJFRDHJW4347-11-56 11:21:009.0[facility] HermannHEMATOLOGY 2015-04-19 11:21:002.88[facility] MmfxzxqKTOKFYDVNS0732-48-08 11:21:0092.4[facility] IkryrswILCWTSWSAC7476-62-36 11:21:00 Test Item Value Reference Range Interpretation Comments MCH (test code = MCH) 31.3 pg 27.0-31.0 [facility] PznofiqZXYPPOYJOQ8740-15-96 11:21:0026.6[facility] HermannHEMATOLOGY 2015-04-19 11:21:000.3[facility] QjuxukzAOUKEQTQUW0359-11-94 11:21:000.1[facility] XqoeukuNNSAWJHOKE1224-77-36 11:21:001.7[facility] AgjztczIQPJLAGVDC8605-12-77 11:21:002.0[facility] VqackroWKMGBXONXU0568-66-11 11:21:009.6[facility] HSSYLKNCHP4479-32-08 11:21:001.1[facility] OiozdpmREREATPZYR0754-20-69 11:21:000.5 [facility] MkssympHGRBFZIRTV7331-30-08 11:21:008.5[facility]annHEMATOLOGY 2015-04-19 11:21:0075.5[facility] XjipjvtZYEKAURQST9265-65-10 11:21:0013.5[facility] HermannCHEM LBZWP0836-52-91 10:53:39394Aeodrple HermannCHEM LUNJU7891-36-58 10:53:000.8[facility]annCHEM UKSLN7757-57-33 10:53:0032[facility]annCHEM RRDVA1914-45-24 10:53:003.6[facility]annCHEM SXTLK3226-25-04 10:53:000.6 [facility]annCHE[facility] UDOGB0593-78-40 10:53:005.6[facility]annCHEM PANEL 2015-04-17 10:53:002.0[facility]annCHEM FCJFW5999-24-23 10:53:0034[facility]annCHEM XZVFL4861-02-89 10:53:0038[facility]annCHEM ZNUHP1961-23-87 11:01:000.8[facility]annCHEM MCCGO4390-93-02 11:01:002.1[facility]annCHEM ZFNSW8983-78-61 11:01:005.5[facility]annCHEM OVZCK4897-67-03 11:01:0028 [facility]annCHE[facility] TVDWX8964-42-47 11:01:75044Lpzbvfrx HermannCHEM PANEL 2015-04-16 11:01:0041[facility]annCHEM NQWZN6407-96-23 11:01:0045[facility]annCHEM BOEHE3381-69-56 11:01:000.6[facility]annCHEM JEZQT3786-15-85 11:01:003.4[facility]BL[facility] B[facility] CSURXSL2729-96-56 18:52:00Negative (04/15/15 1:52 PM)[facility] DDAUIGW4886-13-78 17:09:00Product available 2(04/15/15 12:09 PM)[facility]annCHE[facility] ZCGIH5879-03-60 10:16:004.0 [facility]annCHEM MMIFR5336-95-48 10:16:001.8[facility]annCHEM PANEL 2015-04-12 11:06:002.0[facility]annCHEM NUXRL2040-43-71 11:06:003.2[facility]annCHEM EGRHE7408-37-67 10:55:000.3[facility]annCHEM VJUGK0447-74-15 10:55:000.2[facility] FykkdleBADMIGNCLA3059-99-81 10:55:0015.7[facility]annCHEM PUVHV0922-89-18 10:19:003.4[facility]annCHEM HYRMY4650-09-91 10:19:002.3 [facility] OwahwatUBLSTWNPLK8100-78-47 10:19:008.0[facility] HermannHEMATOLOGY 2015-04-09 10:19:000.0[facility] NydlqfrFCQYTVWLVM7987-78-67 10:19:00Normal (04/09/15 5:19 AM)[facility] UtgzpgjUWSMCFPIMF5867-51-80 10:19:00 Test Item Value Reference Range Interpretation Comments Tot Cell Ct (test code = Tot Cell Ct) 100 1 [facility] RltzdhbGZFNOPLTKU6812-67-99 10:19:001.43[facility] HermannHEMATOLOGY 2015-04-09 10:19:00 Test Item Value Reference Range Interpretation Comments PT (test code = PT) 17.7 s 12.0-14.7 [facility] YizmqqzVBFLRQTCNV8551-54-02 10:19:00 Test Item Value Reference Range Interpretation Comments PTT (test code = PTT) 35.4 s 22.9-35.8 [facility] ZodyzeqGFSAQEUHRO4451-92-44 10:19:0014.9[facility] HermannBACTERIAL - TRJOXYRA4803-06-40 00:24:00Negative 18(04/08/15 7:24 PM)[facility] HermannCARDIAC XNONWEI4838-16-37 08:20:000.05[facility] HermannCHEM AQJBA2720-93-77 07:58:000.2 [facility]annCHEM FNLBF4725-07-59 07:58:000.3[facility]annHEMATOLOGY 2015-04-08 07:58:0014.0[facility] JsrxvhxVDDAUSQGFG5072-61-32 07:58:00 Test Item Value Reference Range Interpretation Comments Tot Cell Ct (test code = Tot Cell Ct) 100 1 [facility] PqbumwmYSSBQCRXUG2264-87-26 07:58:000.0[facility] HermannHEMATOLOGY 2015-04-08 07:58:00Normal (04/08/15 2:58 AM)[facility] OtgubnpLTGIHIEYPH1022-94-64 07:58:00Normal (04/08/15 2:58 AM)[facility] ByohfcbQLWXLWTAOT8093-68-73 07:58:00 24.6[facility] SDSV7678-26-20 23:45:0020[facility] CHEM 2015-04-07 23:45:26537.9[facility] AND YOSSR1675-98-70 23:44:00 Negative (04/07/15 6:44 PM)[facility] RELIL0565-69-96 23:44:00 Negative *NA*(04/07/15 6:44 PM)[facility] XWIXW0020-54-32 23:44:00 Negative (04/07/15 6:44 PM)[facility] NMDUY1823-68-11 23:44:00 Test Item Value Reference Range Interpretation Comments UA pH (test code = UA pH) 5.0 1 5.0-8.0 [facility] FMBQJ4879-25-97 23:44:00Negative (04/07/15 6:44 PM) [facility] RBWCJ2183-39-27 23:44:00Negative (04/07/15 6:44 PM) [facility] HYODA3787-16-04 23:44:000.2[facility] WKFMP1509-72-83 23:44:00Trace *ABN*(04/07/15 6:44 PM)[facility] ZTHKO2519-59-62 23:44:00Small *ABN*(04/07/15 6:44 PM)[facility] JIFSY9751-41-85 23:44:00Slight Cloudy (04/07/15 6:44 PM)[facility] FMLKO4649-23-94 23:44:00Yellow *NA*(04/07/15 6:44 PM)[facility] TAXRC8772-54-15 23:44:00>=1.030 *ABN*(04/07/15 6:44 PM)[facility] MOIV6893-56-00 23:44:00None Seen (04/07/15 6:44 PM)[facility]annCARDIAC BPNQQCS7943-83-62 14:35:001.8[facility] HermannCARDIAC YHKREVH1950-16-30 14:35:00 <0.02[facility] HermannCHEM XNJVT7845-99-26 14:35:001.9[facility] BCGAZNHYPR8994-67-24 11:28:00 Test Item Value Reference Range Interpretation Comments Tot Cell Ct (test code = Tot Cell Ct) 100 1 [facility] VnvxfypFBTMILOGAV1013-86-11 11:28:00Normal (04/07/15 6:28 AM)[facility] YmuofneRQGEWPNFRX6477-18-65 11:28:000.0[facility] TwmtutcPQUXPEMFIR5413-61-06 11:28:0014.0[facility] YLJBJ2026-26-03 16:00:000.2[facility] OTXDR8048-10-75 16:00:00Negative (04/06/15 11:00 AM)[facility] BRWUZ1079-85-18 16:00:00Negative *NA*(04/06/15 11:00 AM)[facility] FHEXE8327-48-33 16:00:00Negative (04/06/15 11:00 AM)[facility] WPTSF2282-90-79 16:00:00Negative (04/06/15 11:00 AM)[facility] WYODP1184-52-85 16:00:00Negative *NA*(04/06/15 11:00 AM)[facility] PYQCD0636-34-76 16:00:00Negative (04/06/15 11:00 AM)[facility] HVRKE7141-31-79 16:00:00 Test Item Value Reference Range Interpretation Comments UA pH (test code = UA pH) 5.5 1 5.0-8.0 [facility] SWOCY6067-14-18 16:00:00 Test Item Value Reference Range Interpretation Comments UA Spec Grav (test code = UA Spec 1.010 1 Grav) [facility] XJTVH0601-77-80 16:00:00Yellow *NA*(04/06/15 11:00 AM) [facility] KXBUJ9981-94-86 16:00:00Clear (04/06/15 11:00 AM) [facility] NUXPYQG7205-73-43 15:10:00Negative (04/06/15 10:10 AM) [facility]annCHEM RWZOJ3771-36-50 10:59:002.3[facility] HermannCHEM PANEL 2015-04-06 09:13:62078Byvzejzs VqoapqiIAPIMAIPJI3333-96-99 09:13:00 Test Item Value Reference Range Interpretation Comments PT (test code = PT) 14.8 s 12.0-14.7 [facility] GjsvavnQRETAVCJIY1651-47-43 09:13:001.15[facility]annHEMATOLOGY 2015-04-06 09:13:00 Test Item Value Reference Range Interpretation Comments PTT (test code = PTT) 32.9 s 22.9-35.8 [facility] VvkpbzpPYIENMCEDD7756-93-34 10:59:000.6[facility]annHEMATOLOGY 2015-04-03 10:59:001.2[facility] YnwluwqCMPDHUXUKC6658-89-12 10:59:000.2[facility] GipmhfxTAVOKFOQPO7159-70-42 10:59:000.0[facility] NfhwbghWPYHTVSHAA6053-18-93 10:59:007.4[facility] VjpxkszIRACMQQLWC4048-58-08 10:59:001.8[facility] RDHWFHTSWT4268-98-60 10:59:0076.7[facility] TqbkxxuYIFWNMYDUG3334-17-74 10:59:00 0.2[facility] UniasytKSKNXURBGZ2288-69-63 10:59:006.7[facility]annHEMATOLOGY 2015-04-03 10:59:0013.9[facility] JyrekxnKJZXSKXNVY8185-54-37 10:59:0033.8[facility] ZnczkibGURKNIYVXS3176-63-39 10:59:008.1[facility] ApupqavIJTWAQJGNO8362-14-67 10:59:58761Sagsolod CfznrbwEHESOFMMVB5120-00-71 10:59:0015.2[facility] RBAGHYJKYU6965-89-54 10:59:009.9[facility] VbwbsezSQAUNFTSLQ2263-29-18 10:59:00 Test Item Value Reference Range Interpretation Comments MCH (test code = MCH) 32.6 pg 27.0-31.0 [facility] DvgeptsBBJBBMJFPD7194-10-14 10:59:003.05[facility] HermannHEMATOLOGY 2015-04-03 10:59:008.8[facility] OheocxoOEBYKJONIT3329-64-19 10:59:0096.3[facility] ApmkwhmOWHUTFZGJV6276-86-26 10:59:0029.4[facility] HermannCHEM YMVMP0708-53-19 10:49:003.3[facility]annCHEM HBJQU3796-25-88 10:49:001.9[facility] HermannCHEM XMDWN8679-81-18 10:49:0074[facility]annCHEM BWLDY4067-98-06 10:49:29760 [facility]annCHEM ZPKPC3238-15-60 10:49:001.0[facility] HermannCHEM PANEL 2015-04-02 10:49:82507Qkppxpng HermannCHEM TAAVS6937-30-32 10:49:008.5[facility] HermannCHEM FWCOM3628-50-52 10:49:004.1[facility] HermannCHEM BGBYL4545-24-36 10:49:0030[facility]annCHEM PXHOY0155-06-25 10:49:21721Kkvlhjqe HermannCHEM MTJZY0289-32-47 10:49:0020[facility]annCHEM OEVWD4744-97-58 10:49:0011.1 [facility] WtvhcfiTNGHDBJXQW9378-27-28 10:49:000.0[facility] HermannHEMATOLOGY 2015-04-02 10:49:000.1[facility] EwmqpqzJZGPGKPUXF8139-19-16 10:49:000.8[facility] QrvpmdtUFOKLVLSOE7657-36-72 10:49:001.5[facility] XprdnnqAUFNYUHPHF1450-37-32 10:49:0074.2[facility] MhpspmkJBQGCTSPZS1477-08-70 10:49:000.7[facility] AVOXZZWWWQ1618-12-50 10:49:006.8[facility] IcianswMYYGOUHYRU9535-92-17 10:49:008.8 [facility] DstlefqCAVSXUTMBY2667-11-73 10:49:0015.9[facility] HermannHEMATOLOGY 2015-04-02 10:49:000.4[facility] MfccyhhKZHHOMTPRE4662-77-47 10:49:65526Enduazfh AobwlthZUFXDCYFQG9808-96-97 10:49:008.0[facility] OqcypwfWRRNBUQBTA9238-46-22 10:49:0029.8[facility] HuxjbptWTLRDFDFCL5057-36-39 10:49:00 Test Item Value Reference Range Interpretation Comments MCH (test code = MCH) 31.8 pg 27.0-31.0 [facility] YvhckljPGEYDUGIOP6572-01-20 10:49:0097.0[facility] HermannHEMATOLOGY 2015-04-02 10:49:0015.5[facility] QumlmogWTKYWGMDCA9628-66-93 10:49:0032.8[facility] HfzqmajDXJEMYJZQU7887-80-14 10:49:003.08[facility] EydycvoVPQIHKJVDM1134-51-38 10:49:009.2[facility] WgfewdrHWUYJSFIBG3879-88-08 10:49:009.8[facility] HermannCHEM VMFUN5819-50-62 12:20:002.1[facility]annCHEM VGMST1488-23-32 12:20:002.9 [facility] VigljdrYOIJKZPCXMZC7499-08-24 12:20:0010.5[facility] HermannELECTROLYTES 2015-04-01 12:20:0066[facility] MqsnizlYYKMKLJVYMVT2963-87-08 12:20:0031[facility] KbkuftkBRLXEJBNLGDK2747-49-59 12:20:21608Uxsxburd QjynjrlSXZDHOACZXOB0301-48-06 12:20:0017[facility] RvknrifFPZSYHAOLAFR7844-45-97 12:20:008.7[facility] UCVASSFFHTHQ0472-21-70 12:20:47163Qtxayjtk DdynhiwJVRTMDCXKWEU5293-19-55 12:20:004.5[facility] VzpnoqgWATPQGXLBYOK2114-23-75 12:20:79641Yjnbkrdf [place] TXNMVVJNWWQD5593-00-96 12:20:001.1[facility] YwwjtugXQWWYRXJPN5540-80-10 12:20:00 80.4[facility] OttbzelGVPAVQDWKU6684-02-53 12:20:008.5[facility] HermannHEMATOLOGY 2015-04-01 12:20:0010.8[facility] NkvlypwOZGVIPTEZQ6268-38-73 12:20:000.1[facility] WojzmwrGFKSBGFCWG3968-91-29 12:20:000.2[facility] PjpuztdMEEIHCPTUZ0227-07-82 12:20:0012.3[facility] CkfqlptGYBDQNTFHC6415-99-45 12:20:001.3[facility] ECSOKBRYRF5824-62-58 12:20:001.6[facility] JutbvbtCHPLSJQNEH6289-00-60 12:20:000.0 [facility] FvmjbgmRGCSXISAUX4923-17-74 12:20:000.0[facility] HermannHEMATOLOGY 2015-04-01 12:20:0015.2[facility] SlysnrdWGZGTRKZGJ1836-13-77 12:20:0010.6[facility] IiwqvuwKYYNZVUQYL9377-95-70 12:20:0033.2[facility] LjsjjebRSKODDTWAT7412-61-07 12:20:003.30[facility] KqlaqrgDCNRHUEMXA1955-30-78 12:20:007.6[facility] VBZRCIHKRK0701-97-66 12:20:0097.0[facility] KxgrhzdBSPRWQHZBS6403-92-40 12:20:00 32.0[facility] EtcbmujDKRGEVFUXE4036-19-59 12:20:00 Test Item Value Reference Range Interpretation Comments MCH (test code = MCH) 32.2 pg 27.0-31.0 [facility] VlpvvxuPZYXDLEPBU0888-68-34 12:20:37554Hlwuiykj HermannHEMATOLOGY 2015-04-01 12:20:0015.2[facility] HermannCHEM HRJMB7717-00-25 12:51:0066[facility] HermannCHEM AMYDA8380-28-22 12:51:0019[facility] HermannCHEM QHJZJ7540-78-81 12:51:87994Zvknfuig HermannCHEM BWBPO1467-26-42 12:51:004.4[facility] HermannCHEM FFYMI5151-01-44 12:51:97359Gdeftwxr HermannCHEM HEOGL8615-38-15 12:51:89622 [facility]annCHEM EOZUF0448-00-89 12:51:001.1[facility] HermannCHEM PANEL 2015-03-31 12:51:0029[facility] HermannCHEM AJBPD5844-64-92 12:51:008.7[facility] HermannCHEM MVCVL3505-77-91 12:51:0011.4[facility]annCHEM KPMZA7026-33-66 12:51:003.5[facility]annCHEM RJBMT4524-77-19 12:51:001.7[facility] ZYOJUHVLHY3442-02-27 12:51:00Normal (03/31/15 7:51 AM)[facility]annHEMATOLOGY 2015-03-31 12:51:00Normal (03/31/15 7:51 AM)[facility]annBL[facility]OD BANK RESULTS 2015-03-30 18:01:00Product available 1(03/30/15 1:01 PM)[facility] KNSFYUD9714-39-08 13:50:00Negative (03/30/15 8:50 AM)[facility] HermannCHEM OKJRW6104-21-45 08:54:0035[facility] HermannCHEM RXSTL6594-15-47 08:54:002.6 [facility]annCHEM OZZQM6017-22-13 08:54:001.1[facility] HermannCHEM PANEL 2015-03-30 08:54:0042[facility] HermannCHEM SVTIP3482-31-65 08:54:06016Xoncpmue HermannCHEM HZPCY9418-69-25 08:54:005.9[facility] HermannCHEM JAASW4028-26-76 08:54:003.3[facility] HermannCHEM SRDWH2841-50-39 08:54:0015[facility] HermannCHEM HSKLZ2423-33-30 08:54:000.8[facility] HermannCARDIAC RFBHXOV8889-48-42 12:09:00 <0.02[facility] HermannCHEM SBWMG1816-74-16 12:04:006.3[facility] HermannCHEM PGREB9264-88-25 12:04:0018[facility] HermannCHEM DVOEC7180-80-14 12:04:002.8 [facility]annCHEM PLYEL2182-30-19 12:04:0066[facility] HermannCHEM PANEL 2015-03-29 12:04:99720Mcroyfiy HermannCHEM PDFFD5684-87-19 12:04:002.1[facility] HermannCHEM SPVIP6952-23-00 12:04:000.8[facility]annCHE[facility] [id number] 12:04:0043[facility]CHE[facility] [id number] 12:04:003.5[facility] AND [id number] 18:59:00 Test Item Value Reference Range Interpretation Comments UA pH (test code = UA pH) 6.0 1 5.0-8.0 [facility] [id number] 18:59:00 Test Item Value Reference Range Interpretation Comments UA Spec Grav (test code = UA Spec 1.020 1 Grav) [facility] [id number] 18:59:00Clear (03/28/15 1:59 PM) [facility] [id number] 18:59:00Yellow *NA*(03/28/15 1:59 PM) [facility] [id number] 18:59:00Negative *NA*(03/28/15 1:59 PM) [facility] [id number] 18:59:00Negative (03/28/15 1:59 PM) [facility] [id number] 18:59:00Negative (03/28/15 1:59 PM) [facility] [id number] 18:59:00Negative (03/28/15 1:59 PM) [facility] [id number] 18:59:000.2[facility] [id number] 18:59:00None Seen (03/28/15 1:59 PM)[facility] [id number] 18:59:00None Seen (03/28/15 1:59 PM)[facility]annCARDIAC [id number] 18:43:004.3[facility]annCARDIAC [id number] 18:43:00 <0.02[facility]annCARDIAC [id number] 18:43:0054[facility] C[facility]AC [id number] 18:43:002.3[facility]annCHEM [id number] 18:43:0043[facility]annCHEM [id number] 18:43:81262Ahmobqbi HermannCHEM JNTLC8394-31-33 18:43:004.0[facility]CHE[facility] [id number] 18:43:000.5 [facility] [id number] 18:43:000.8[facility]annCHEM PANEL 2015-03-28 18:43:0022[facility]annCHEM [id number] 18:43:0031[facility]annCHE[facility] [id number] 18:43:88006Krjifrkc HermannCHEM [id number] 18:43:0034[facility]annCHEM [id number] 18:43:003.0[facility]annCHE[facility] [id number] 18:43:007.0[facility] KdquxtySKFHIUVAAE3945-62-00 18:43:001+ *ABN*(03/28/15 1:43 PM)[facility] YghtxciZCYVLCGSTC6744-69-10 18:43:00Normal (03/28/15 1:43 PM)[facility] SqlbuuhUIJFLGFTHY9500-55-05 18:43:001.06[facility] LdvecdbJPZKMEORRO6627-44-32 18:43:00 Test Item Value Reference Range Interpretation Comments PTT (test code = PTT) 34.6 s 22.9-35.8 [facility] UxjbunhGAYUXPKYVX4985-77-79 18:43:00 Test Item Value Reference Range Interpretation Comments PT (test code = PT) 13.8 s 12.0-14.7 [facility]
[2020-04-27 00:37] LABS: Absolute Lymphocytes (CBC) 0.8 K/uL (0.7-4.9); Basophils % 0.5 % (0-1.3); Hematocrit 36.3 % (39.6-49.0); Lymphocytes % 14.3 % (15.3-44.8); MPV 7.1 fL (7.6-11.3); RBC Red Blood Cell Count 4.13 M/uL (4.33-5.43)
[2020-04-27 00:50] LABS: Albumin 3.5 g/dL (3.4-5.0); Bilirubin Direct 0.1 mg/dL (0-0.2); Bilirubin Total 0.4 mg/dL (0.2-1.0); Potassium 3.1 mmol/L (3.5-5.1); Protein, Total 7.2 g/dL (6.4-8.2)
[2020-04-27] MEDS ORDERED: NA CHLORIDE 0.9% 1,000 ML ONE (01:18)
[2020-04-27] MEDS ORDERED: POTASSIUM 25 MEQ EFFERV TAB ONE (01:18)
[2020-04-27] MEDS ORDERED: ONDANSETRON 4 MG/2 ML VIAL ONE (02:21)
--- NOTE | 2020-04-27 02:25 | ER ---
Nurse's Notes [facility] Name: Tomer Mckeon Age: 79 yrs Sex: Male : 1940 Arrival Date: 04/26/2020 Time: 23:23 Bed 7 Private MD: Diagnosis: Dehydration;Acute kidney injury;Vomiting;Diarrhea, unspecified;Unspecified abdominal pain;Cystitis, unspecified Presentation: 04/26 23:35 Chief complaint: Spouse and/or significant other states: he has weakness, abdl pain , mg2 vomiting and black watery diarrhea for 3 weeks now. he has a schedule for upper GI test with Dr. Fisher's office tomorrow and CT scan for the Lung tomorrow here. He did COVID test \\T\\ Dr. Duff office last Saturday as pre -op but they dont know the result yet. Coronavirus screen: Proceed with normal triage. Patient denies a cough. Patient denies shortness of breath or difficulty breathing. Patient denies measured and/or subjective temperature greater than 100.4F prior to today's visit. Patient denies travel on a cruise ship or to a country the [facility] currently lists as an affected area. Patient denies contact with known and/or suspected case of COVID-19. Ebola Screen: No symptoms or risks identified at this time. Initial Sepsis Screen: Does the patient meet any 2 criteria? No. Patient's initial sepsis screen is negative. Does the patient have a suspected source of infection? No. Patient's initial sepsis screen is negative. Risk Assessment: Do you want to hurt yourself or someone else? Patient reports no desire to harm self or others. Onset of symptoms was March 2020. 23:35 Method Of Arrival: Wheelchair mg2 23:35 Acuity: PHUONG 3 mg2 Historical: - Allergies: 23:38 HYDRALAZINE; mg2 23:41 HYDRALAZINE; ea - Home Meds: 23:41 B12 1000 mcg daily [Active]; Klor-Con M20 20 mEq Oral TbTQ 1 tab 2 times per day ea [Active]; azelastine 137 mcg (0.1 %) nasal spra once a day [Active]; nitroglycerin 0.4 mg SL subl 1 tab every 5 minutes [Active]; hydrocodone-acetaminophen 7.5-325 mg Oral tab daily [Active]; pantoprazole Oral [Active]; aspirin 81 mg Oral chew 1 tab once daily [Active]; potassium chloride 20 mEq Oral TbER 1 tab 2 times per day [Active]; furosemide 40 mg Oral tab 1 tab once daily [Active]; metoprolol tartrate 25 mg Oral tab 2 times per day [Active]; finasteride 5 mg Oral tab 1 tab once daily [Active]; folic acid 800 mcg Oral tab 1 tab once daily [Active]; gabapentin 600 mg Oral tab 2 tab twice a day [Active]; losartan Oral [Active]; Plavix 75 mg Oral tab 1 tab once daily [Active]; - PMHx: 23:38 Gastroparesis; GI Bleed; Hypertension; Lung Cancer; neuropathy; mg2 23:41 neuropathy; Lung Cancer; Hypertension; GI Bleed; Gastroparesis; ea - PSHx: 23:41 "Urine flow restriction repair"; Heart stents; Hernia repair; 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 - Social history:: Smoking status: Patient denies any tobacco usage or history of. Patient/guardian denies using alcohol, street drugs, IV drugs. Screenin:41 Abuse screen: Denies threats or abuse. Nutritional screening: No deficits noted. ea Tuberculosis screening: No symptoms or risk factors identified. Fall Risk None identified. Assessment: 23:42 General: Appears uncomfortable, Behavior is cooperative. Pain: Complains of pain in ea abdomen. Neuro: Level of Consciousness is awake, alert, obeys commands, Oriented to person, place, time, situation. Cardiovascular: Patient's skin is warm and dry. Respiratory: Airway is patent Respiratory effort is even, unlabored, Respiratory pattern is regular, symmetrical. GI: Abdomen is non-distended. Derm: Skin is dry, Skin is pale, Skin temperature is warm. 04/27 00:00 Reassessment: Patient and/or family updated on plan of care and expected duration. Pain ea level reassessed. Patient is alert, oriented x 3, equal unlabored respirations, skin warm/dry/pink. 01:16 Reassessment: patient sent to CT scan. mg2 01:30 Reassessment: No changes from previously documented assessment. Patient and/or family mg2 updated on plan of care and expected duration. Pain level reassessed. patient and informed about the need for admission and he agreed. 02:20 Reassessment: patient had a yellowish with gastric contents vomitus. mg2 02:35 Reassessment: Patient and/or family updated on plan of care and expected duration. Pain ea level reassessed. Pt resting with eyes closed, respirations even and unlabored, chest expansions even and symmetrical. 03:51 Derm: Wound noted left leg and left gaston Wound is ulcer and abrasion in the left leg mg2 with dressing in situ. both dressing noted in both legs. 04:18 Reassessment: Patient and/or family updated on plan of care and expected duration. Pain ea level reassessed. Patient is alert, oriented x 3, equal unlabored respirations, skin warm/dry/pink. Report called to receiving nurse on second floor, pt admitted to second floor, left ED via stretcher per tech, tolerating well. No s/s of pain or discomfort noted at this time. Vital Signs: 04/26 23:35 BP 143 / 71; Pulse 81; Resp 18; Temp 97.3(TE); Pulse Ox 100% on R/A; mg2 04/27 01:17 BP 162 / 66; Pulse 76; Resp 18; Pulse Ox 100% on R/A; mg2 03:03 Pulse 72; Resp 18; Pulse Ox 100% on R/A; mg2 03:49 BP 178 / 62; Pulse 70; Resp 18; Pulse Ox 100% on R/A; mg2 04:15 BP 160 / 57; Pulse 70; Resp 19; Temp 97.5; Pulse Ox 100% ; ea ED Course: 04/26 23:23 Patient arrived in ED. sg 23:27 Arnulfo Johnson NP is PHCP. pm1 23:27 Manuel Skinner MD is Attending Physician. pm1 23:30 Maria Carpenter, JOY is Primary Nurse. ea 23:38 Triage completed. mg2 23:38 Arm band placed on. mg2 23:42 Patient has correct armband on for positive identification. Bed in low position. Call ea light in reach. Side rails up X2. Pulse ox on. NIBP on. 04/27 00:03 Radiology exam delayed due to lab results not completed at this time. (BUN/Creatinine). 00:10 Accessed Port-a-Cath. using accessed w/ # 20 Ibarra needle, ,sterile technique, per [address] protocol. Clean \\T\\ dry. Dressing intact. Good blood return. Flushes easily. 00:18 No provider procedures requiring assistance completed. mg2 01:17 Patient admitted, IV remains in place. mg2 01:29 Abdomen In Process Unspecified. EDMS 02:20 stool sample sent to the lab. mg2 02:24 Trenton Scott is Hospitalizing Provider. pm1 02:45 Straight cath inserted, using sterile technique, 16 Fr. Patient tolerated well. 30 ml mg2 output. Administered Medications: 01:27 Drug: Potassium Effervescent Tablet 50 mEq Route: PO; mg2 02:00 Follow up: Response: No adverse reaction mg2 01:28 Drug: NS 0.9% 500 ml Route: IV; Rate: bolus; Site: Port-a-cath; mg2 02:51 Follow up: Response: No adverse reaction; IV Status: Completed infusion; IV Intake: ea 500ml 02:22 Drug: Zofran (Ondansetron) 4 mg Route: IVP; Site: Port-a-cath; mg2 02:50 Drug: Zosyn 3.375 grams Route: IVPB; Infused Over: 60 mins; Site: Port-a-cath; ea 02:51 Drug: NS 0.9% 1000 ml Route: IV; Rate: 100 ml/hr; Site: Port-a-cath; ea Point of Care Testing: Guaiac: 04/26 23:47 Stool Guaiac: Negative; Stool Hemoccult Control: Pass; mw2 Intake: 04/27 02:51 IV: 500ml; Total: 500ml. ea Outcome: 02:24 Decision to Hospitalize by Provider. pm1 02:34 Instructed on the need for admit, Demonstrated understanding of instructions. ea 04:19 Admitted to Med/surg accompanied by tech, room 218, with chart, Report called to ea Receiving nurse on second floor 04:19 Condition: stable 04:20 Patient left the [place]. [facility] [place] Signatures: Dispatcher [employer] EDMS Calin Calix RN RN sg Hagler, Ervin Arnulfo Johnson, TEACHER HOME THERAPY TEACHER HOME THERAPY pm1 Maria Carpenter RN RN ea [place], MyKena mw2 Klever Cruz, RN RN mg2
--- NOTE | 2020-04-27 02:25 | EDPHYS ---
Physician Documentation [facility] Name: Tomer Mckeon Age: 79 yrs Sex: Male : 1940 Arrival Date: 04/26/2020 Time: 23:23 Bed 7 Private MD: ED Physician Manuel Skinner HPI: 04/26 23:48 This 79 yrs old Male presents to ER via Wheelchair with complaints of pm1 Diarrhea, Dehydration, Abdominal Pain. 23:48 The patient presents to the emergency department with vomiting, diarrhea, abdominal pm1 pain. Onset: The symptoms/episode began/occurred 3 week(s) ago. Possible causes: unknown. The symptoms are aggravated by food , The symptoms are alleviated by nothing. Associated signs and symptoms: Pertinent positives: generalized weakness, Pertinent negatives: dysuria, fever. Severity of symptoms: in the emergency department the symptoms are worse. history of GI bleed. Patient presents to the ER with complaints of generalized weakness, dehydration, abdominal pain with vomiting and diarrhea for the past 3 weeks. He reports black watery diarrhea and vomit. Patient does take iron supplementation and has taken some Pepto Bismol recently. Patient has an appointment tomorrow with Dr. Fisher for EGD at [address] chest scheduled here by Dr. Cisneros. Historical: - Allergies: 23:38 HYDRALAZINE; mg2 23:41 HYDRALAZINE; ea - Home Meds: 23:41 B12 1000 mcg daily [Active]; Klor-Con M20 20 mEq Oral TbTQ 1 tab 2 times per day ea [Active]; azelastine 137 mcg (0.1 %) nasal spra once a day [Active]; nitroglycerin 0.4 mg SL subl 1 tab every 5 minutes [Active]; hydrocodone-acetaminophen 7.5-325 mg Oral tab daily [Active]; pantoprazole Oral [Active]; aspirin 81 mg Oral chew 1 tab once daily [Active]; potassium chloride 20 mEq Oral TbER 1 tab 2 times per day [Active]; furosemide 40 mg Oral tab 1 tab once daily [Active]; metoprolol tartrate 25 mg Oral tab 2 times per day [Active]; finasteride 5 mg Oral tab 1 tab once daily [Active]; folic acid 800 mcg Oral tab 1 tab once daily [Active]; gabapentin 600 mg Oral tab 2 tab twice a day [Active]; losartan Oral [Active]; Plavix 75 mg Oral tab 1 tab once daily [Active]; - PMHx: 23:38 Gastroparesis; GI Bleed; Hypertension; Lung Cancer; neuropathy; mg2 23:41 neuropathy; Lung Cancer; Hypertension; GI Bleed; Gastroparesis; ea - PSHx: 23:41 "Urine flow restriction repair"; Heart stents; Hernia repair; 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 - Social history:: Smoking status: Patient denies any tobacco usage or history of. Patient/guardian denies using alcohol, street drugs, IV drugs. ROS: 23:48 Constitutional: Negative for fever, chills, and weight loss, Cardiovascular: Negative pm1 for chest pain, palpitations, and edema, Respiratory: Negative for shortness of breath, cough, wheezing, and pleuritic chest pain. 23:48 Back: Negative for injury and pain, : Negative for injury, bleeding, discharge, and swelling, MS/Extremity: Negative for injury and deformity, Skin: Negative for injury, rash, and discoloration. 23:48 Abdomen/GI: Positive for abdominal pain, nausea, vomiting, and diarrhea, black stool, Negative for constipation. 23:48 Neuro: Positive for generalized weakness. Exam: 23:48 Constitutional: This is a well developed, well nourished patient who is awake, alert, pm1 and in no acute distress. Head/Face: Normocephalic, atraumatic. Neck: Trachea midline, no thyromegaly or masses palpated, and no cervical lymphadenopathy. Supple, full range of motion without nuchal rigidity, or vertebral point tenderness. No Meningismus. Chest/axilla: Normal chest wall appearance and motion. Nontender with no deformity. No lesions are appreciated. 23:48 Back: No spinal tenderness. No costovertebral tenderness. Full range of motion. 23:48 MS/ Extremity: Pulses equal, no cyanosis. Neurovascular intact. Full, normal range of motion. 23:48 Cardiovascular: Rate: normal, Rhythm: regular, Pulses: no pulse deficits are appreciated, Edema: is not appreciated. 23:48 Respiratory: Exam negative for acute changes, respiratory distress, shortness of breath. 23:48 Abdomen/GI: Inspection: abdomen appears normal, Palpation: soft, in all quadrants, mild abdominal tenderness, in the epigastric area, mass, is not appreciated. 23:48 Skin: Appearance: normal except for affected area, injury, abrasion(s), small abrasion noted, of the right ankle, lesion(s), noted, and can be described as ulcerated, circular 1.5 cm, located on the left gaston. 23:48 Neuro: Orientation: is normal, Mentation: is normal, Motor: moves all fours. 23:50 Abdomen/GI: Rectal exam: rectal tone normal, Stool: guaiac negative, black. pm1 Vital Signs: 23:35 BP 143 / 71; Pulse 81; Resp 18; Temp 97.3(TE); Pulse Ox 100% on R/A; mg2 04/27 01:17 BP 162 / 66; Pulse 76; Resp 18; Pulse Ox 100% on R/A; mg2 03:03 Pulse 72; Resp 18; Pulse Ox 100% on R/A; mg2 03:49 BP 178 / 62; Pulse 70; Resp 18; Pulse Ox 100% on R/A; mg2 04:15 BP 160 / 57; Pulse 70; Resp 19; Temp 97.5; Pulse Ox 100% ; ea MDM: 04/26 23:27 Patient medically screened. pm1 04/27 02:22 Data reviewed: vital signs. Data interpreted: Pulse oximetry: on room air is 100 %. pm1 Interpretation: normal. Counseling: I had a detailed discussion with the patient and/or guardian regarding: the historical points, exam findings, and any diagnostic results supporting the discharge/admit diagnosis, lab results, radiology results, the need for further work-up and treatment in the hospital. 02:31 Physician consultation: Trenton Scott was called at 02:31, was contacted at 02:31, pm1 regarding admission, patient's condition, would like consultation with Dr. Steve. 02:44 Physician consultation: Dakota Steve MD was called at 02:45, was contacted at 02:45, pm1 regarding consult, patient's condition, and will see patient later today. 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 02:59 ED course: Discussed CT finding with Dr. Skinner. CT today mentions a " 2. Thick walled pm1 fluid collection up to 9.3 cm within the right hemipelvis with adjacent edema suggestive of abscess." Patient without fever, elevated white count, or tenderness in the lower abdomen. CT 06/02/2018 has "5 x 4 fluid collection within the anterior right pelvis may represent a chronic hematoma/seroma. An abscess although possible is considered less likely." CT 07/15/2019 "Right inguinal fluid collection appears unchanged." Appears that this is a chronic condition. 04/26 23:39 Order name: Basic Metabolic Panel; Complete Time: 01:05 pm1 04/26 23:39 Order name: CBC with Diff; Complete Time: 00:55 pm1 04/26 23:39 Order name: Hepatic Function; Complete Time: 01:05 pm04/26 23:39 Order name: Lipase; Complete Time: 01:05 pm1 04/26 23:39 Order name: Type And Screen pm1 04/26 23:39 Order name: Fecal Leukocyte Stain pm1 04/26 23:39 Order name: Ova And Parasites pm1 04/26 23:39 Order name: Stool Culture pm1 04/26 23:39 Order name: C.difficile pm04/27 01:06 Order name: Abdomen EDMS 04/27 02:12 Order name: Urine Microscopic Only pm04/27 02:12 Order name: Blood Culture Adult (2) pm1 04/27 03:30 Order name: Urine Dipstick--Ancillary (enter results) mw2 04/26 23:39 Order name: IV Saline Lock; Complete Time: 00:18 pm04/26 23:39 Order name: Labs collected and sent; Complete Time: 00:18 pm04/27 02:12 Order name: Urine Dipstick-Ancillary (obtain specimen); Complete Time: 03:30 pm1 Administered Medications: 01:27 Drug: Potassium Effervescent Tablet 50 mEq Route: PO; mg2 02:00 Follow up: Response: No adverse reaction mg2 01:28 Drug: NS 0.9% 500 ml Route: IV; Rate: bolus; Site: Port-a-cath; mg2 02:51 Follow up: Response: No adverse reaction; IV Status: Completed infusion; IV Intake: ea 500ml 02:22 Drug: Zofran (Ondansetron) 4 mg Route: IVP; Site: Port-a-cath; mg2 02:50 Drug: Zosyn 3.375 grams Route: IVPB; Infused Over: 60 mins; Site: Port-a-cath; ea 02:51 Drug: NS 0.9% 1000 ml Route: IV; Rate: 100 ml/hr; Site: Port-a-cath; ea Point of Care Testing: Guaiac: 04/26 23:47 Stool Guaiac: Negative; Stool Hemoccult Control: Pass; mw2 Disposition: 04/27 05:32 Co-signature as Attending Physician, Manuel Skinner MD. 7 Disposition: 04/27/20 02:24 Hospitalization ordered by Trenton Scott for Inpatient Admission. Preliminary diagnosis are Dehydration, Acute kidney injury, Vomiting, Diarrhea, unspecified, Unspecified abdominal pain, Cystitis, unspecified. - Bed requested for Telemetry/MedSurg (Inpatient). - Status is Inpatient Admission. mg2 - Condition is Stable. - Problem is new. - Symptoms have improved. Signatures: Dispatcher [employer] [facility] Britt Guirdy RN RN tl1 Arnulfo Johnson, JOSE LUIS TRAVELING ENGINEER pm1 Maria Carpenter RN RN ea [place]ose, Michele, RN RN mg2 Manuel Skinner MD MD 7 Corrections: (The following items were deleted from the chart) 01:07 04/26 23:40 Abdomen Pelvis W Con+CT.RAD.BRZ ordered. [facility] 04/27 03:13 02:59 ED course: Discussed CT finding with Dr. Skinner. CT today mentions a " 2. Thick pm1 walled fluid collection up to 9.3 cm within the right hemipelvis with adjacent edema suggestive of abscess." Patient without fever, elevated white count, or tenderness in the lower abdomen. CT 06/02/2018 has "5 x 4 fluid collection within the anterior right pelvis may represent a chronic hematoma/seroma. An abscess although possible is considered less likely.". pm1 03:21 02:24 Hospitalization Ordered by Trenton Scott for Inpatient Admission. Preliminary pm1 diagnosis is Dehydration; Acute kidney injury; Vomiting; Diarrhea, unspecified; Unspecified abdominal pain. Bed requested for Telemetry/MedSurg (Inpatient). Status is Inpatient Admission. Condition is Stable. Problem is new. Symptoms have improved. pm1 03:53 03:21 04/27/2020 02:24 Hospitalization Ordered by Trenton Scott for Inpatient tl1 Admission. Preliminary diagnosis is Dehydration; Acute kidney injury; Vomiting; Diarrhea, unspecified; Unspecified abdominal pain; Cystitis, unspecified. Bed requested for Telemetry/MedSurg (Inpatient). Status is Inpatient Admission. Condition is Stable. Problem is new. Symptoms have improved. pm1 04:20 03:53 04/27/2020 02:24 Hospitalization Ordered by Trenton Scott for Inpatient mg2 Admission. Preliminary diagnosis is Dehydration; Acute kidney injury; Vomiting; Diarrhea, unspecified; Unspecified abdominal pain; Cystitis, unspecified. Bed requested for Telemetry/MedSurg (Inpatient). Status is Inpatient Admission. Condition is Stable. Problem is new. Symptoms have improved. tl1
[2020-04-27] MEDS ORDERED: PIPER/TAZO/NS 3.375gm 3.375 GM/100 ML BAG ONE (02:38)
--- NOTE | 2020-04-27 03:28 | P.HP ---
Certification for Inpatient Patient admitted to: Inpatient With expected LOS: >2 Midnights Practitioner: I am a practitioner with admitting privileges, knowledge of patient current condition, hospital course, and medical plan of care. Services: Services provided to patient in accordance with Admission requirements found in Title 42 Section 412.3 of the Code of Federal Regulations Patient History Date of Service: 04/27/20 Reason for admission: Generalize weakness History of Present Illness: 79-year-old man with a history of lung cancer status post chemo radiation, now under surveillance presented emergency department with a complaint of diarrhea of 3 weeks duration. Patient also reports some vomiting. He denied any fever. He reports becoming generally weak over the last couple of days. He reports intermittent abdominal pain, mild to moderate intensity, He is scheduled for an endoscopy with Dr. Fisher tomorrow. Blood work in the ED demonstrated acute renal failure with elevated creatinine and BUN, as well as acidemia and hypokalemia. CT abdomen and pelvis report intra-abdominal seroma and fluid- filled loops of bowel. Patient is admitted for further management. Allergies HYDRALAZINE Allergy (Uncoded 06/02/18 05:26) Unknown Home Medications: Aspirin 1 tab PO DAILY 07/14/19 Atorvastatin Calcium 1 tab PO BEDTIME 07/14/19 Azelastine [Astelin 137MCG/Metered [place]*] 1 spray DAILY 07/14/19 Chlorthalidone 1 tab PO DAILY 07/14/19 Clonidine HCl [Catapres] 1 tab PO BID PRN 07/14/19 Clopidogrel Bisulfate [Plavix*] 20 mg PO DAILY 07/14/19 Cyanocobalamin (Vitamin B-12) [Vitamin B12] 1,000 mcg PO DAILY 07/14/19 Finasteride 1 tab PO BEDTIME 07/14/19 Gabapentin 1,200 mg PO BID 07/14/19 Hydrocodone 7.5/APAP 325 [[place] 7.5/325 mg*] 1 tab PO QID PRN 07/14/19 Losartan Potassium 100 mg PO DAILY 07/14/19 Meclizine HCl [Antivert*] 1 tab PO TID PRN 07/14/19 Metoprolol Succinate [Toprol Xl*] 1 tab PO BID 07/14/19 Nortriptyline HCl 1 tab PO BEDTIME 07/14/19 Pantoprazole [Protonix Tab*] 1 tab PO BID 07/14/19 Potassium Chloride 20 meq PO BID 07/14/19 Potassium Oral Tab [Klor-Con 10 mEq Tab*] 1 tab PO BID 07/14/19 Sucralfate [Carafate*] 1 tab PO TID 07/14/19 Trazodone HCl 1 tab PO BEDTIME 07/14/19 Hydrocortisone Cream [Hydrocortisone 1% Cream*] 1 appl TOP BID 07/15/19 - Past Medical/Surgical History Diabetic: No -: gastric ulcer -: anemina -: lung ca -: neuropahty -: hypertension -: gastroparesis -: bilateral ingrown toe nails operated an fixed -: scar on right arm removed due to begnine finding -: right partial toe amputation - Family History Family History: Reviewed- Non-Contributory - Social History Alcohol use: Yes CD- Drugs: No Caffeine use: Yes Review of Systems Other: Except as documented, all other systems reviewed and negative. Physical Examination - Physical Exam General: Alert, In no apparent distress, Oriented x3 HEENT: Mucous membr. moist/pink, Sclerae nonicteric Neck: Supple, No Thyromegaly Respiratory: Clear to auscultation bilaterally, Normal air movement Cardiovascular: No edema, Regular rate/rhythm, Normal S1 S2 Capillary refill: <2 Seconds Gastrointestinal: Normal bowel sounds, Soft and benign, Non-distended, No tenderness, No rebound, No guarding Musculoskeletal: No swelling, No erythema Integumentary: No rashes, Other (Small ulcers noted on bilateral gaston) Neurological: Normal speech, Normal strength at 5/5 x4 extr - Studies Laboratory Data (last 24 hrs) 04/27/20 00:10: WBC 5.6 D, Hgb 11.8 L, Hct 36.3 L D, Plt Count 219 04/27/20 00:10: Sodium 139, Potassium 3.1 L, BUN 89 H D, Creatinine 3.99 H D, Glucose 113 H, Total Bilirubin 0.4, AST 9 L, ALT 11 L, Alkaline Phosphatase 103, Lipase 232 Assessment and Plan - Problems (Diagnosis) (1) Hypokalemia Current Visit: Yes Status: Acute (2) Enterocolitis Current Visit: Yes Status: Acute (3) Acute kidney injury Current Visit: No Status: Acute (4) Metabolic acidosis Current Visit: No Status: Acute (5) Seroma Current Visit: Yes Status: Acute - Plan Admit to the medical floor Hydrate with IV normal saline. IV Flagyl and Cipro Check stool for C. diff Replete potassium Monitor electrolytes and replete accordingly Consult to GI. Consult general surgery regarding the Seroma. Insert Kwong catheter to monitor urine output. - Advance Directives Does patient have a Living Will: Yes Does patient have a Durable POA for Healthcare: Yes
[2020-04-27] MEDS ORDERED: NS KCL 20MEQ 20 MEQ/1,000 ML BAG IV SCH (04:39)
[2020-04-27] MEDS ORDERED: ONDANSETRON 4 MG/2 ML VIAL IV PRN (04:39)
[2020-04-27 04:54] VITALS: BMI 21.4
[2020-04-27 05:01] LABS: Urine Amorphous Sediment 1+ /HPF (NONE SEEN); Urine Bacteria <20 /HPF (NONE SEEN); Urine Culture Reflex Order REFLEXED; Urine Urothelial Cells <5 /HPF (NONE SEEN)
[2020-04-27 06:24] LABS: Absolute Lymphocytes (CBC) 0.9 K/uL (0.7-4.9); Basophils % 0.6 % (0-1.3); Lymphocytes % 12.1 % (15.3-44.8); MPV 7.3 fL (7.6-11.3); RBC Red Blood Cell Count 3.68 M/uL (4.33-5.43)
[2020-04-27 06:44] LABS: Magnesium 1.7 mg/dL (1.8-2.4); Phosphorus 6.1 mg/dL (2.5-4.9); Thyroid Stimulating Hormone 1.22 uIU/mL (0.360-3.740)
[2020-04-27] MEDS ORDERED: MAGNESIUM SULFATE 1 gm IVPB 1 GM/100 ML BAG IV ONE (08:00)
[2020-04-27] MEDS: CIPROFLOXACIN 400mg IV 400 MG/200 ML BAG IV SCH (08:55)
[2020-04-27] MEDS: METRONIDAZOLE 500mg IVPB 500 MG/100 ML BAG IV SCH ×2 (08:55→16:30)
--- NOTE | 2020-04-27 09:06 | P.CNS ---
Chief Complaint: Generalize weakness History of Present Illness: Pt is a 72 y/o male with past medical hx of lung cancer in remissionpresenting with complaints of several days of nausea, vomiting, and diarrhea. Pt reports generalized weakness and malaise. Pt was scheduled for outpt colonosocpe prior to presentation but could not wait.Work up did reveal adn abdominal wall seroma. He feels better now and feels like he may tolerate his food. He denies any chest pain, sob, dizziness. Denies any urinary symptoms. Allergies HYDRALAZINE Allergy (Uncoded 06/02/18 05:26) Unknown Home Medications: Aspirin [Low Dose Aspirin EC] 81 mg PO DAILY 04/27/20 Atorvastatin Calcium [Lipitor] 40 mg PO BEDTIME 04/27/20 Azelastine [Astelin 137MCG/Metered [place]*] 1 spray IH DAILY 04/27/20 Diphenox/Atropine [Lomotil*] 2.5 mg PO DAILY 04/27/20 Diphenoxylate HCl/Atropine [Diphenoxylat-Atrop 2.5-0.025/5] 1 bobby TOP DAILY 04/27/20 Ferrous Sulfate [Iron] 1 tab PO BID 04/27/20 Finasteride 5 mg PO BEDTIME 04/27/20 Folic Acid 400 mg PO BID 04/27/20 Furosemide 80 mg PO DAILY 04/27/20 Gabapentin 1,200 mg PO BID 04/27/20 Hydrocodone Bit/Acetaminophen [Hydrocodon-Acetaminoph 7.5-325] 1 tab PO DAILY PRN 04/27/20 Losartan Potassium 100 mg PO DAILY 04/27/20 Mecobalamin [B12 Active] 1 tab PO DAILY 04/27/20 Metoprolol Tartrate 12.5 mg PO BID 04/27/20 Nitroglycerin [Nitrostat] 0.4 mg SL SEECOM 04/27/20 Pantoprazole [Protonix Tab*] 40 mg PO DAILY 04/27/20 Potassium Chloride [K-Dur] 20 mg PO DAILY 04/27/20 Potassium Chloride [Klor-Con] 20 mg PO DAILY 04/27/20 Sucralfate [Carafate*] 1 gm PO QID 04/27/20 hydrOXYzine HCL [Atarax] 50 mg PO DAILY 04/27/20 Clopidogrel Bisulfate [Plavix] 75 mg PO DAILY 04/28/20 - Past Medical/Surgical History Diabetic: No -: gastric ulcer -: anemina -: lung ca -: neuropahty -: hypertension -: gastroparesis -: neuropathy -: bilateral ingrown toe nails operated an fixed -: scar on right arm removed due to begnine finding -: right partial toe amputation -: "urine flow restriction repair" prostate - Social History Smoking Status: Never smoker Alcohol use: No CD- Drugs: No Caffeine use: No Place of Residence: Home Review of Systems General: Weakness, Malaise Eyes: Unremarkable ENT: Unremarkable Respiratory: Unremarkable Cardiovascular: Unremarkable Gastrointestinal: Nausea, Vomiting, Diarrhea Genitourinary: Unremarkable Musculoskeletal: Unremarkable Integumentary: Unremarkable Neurological: Unremarkable Physical Examination Temp Pulse Resp BP Pulse Ox 96.8 F 61 15 169/72 H 100 04/27/20 08:00 04/27/20 08:00 04/27/20 08:00 04/27/20 08:00 04/27/20 08:00 General: Alert, Oriented x3 HEENT: Atraumatic, Normocephalic, PERRLA Neck: Supple, JVD not distended, No Thyromegaly Respiratory: Clear to auscultation bilaterally, Normal air movement Cardiovascular: No edema, Normal S1 S2 Capillary refill: <2 Seconds Gastrointestinal: Normal bowel sounds Musculoskeletal: No clubbing, No tenderness, No warmth Integumentary: No rashes, No tenderness/swelling Neurological: Normal gait, Normal speech, Normal strength at 5/5 x4 extr, Sensation intact Laboratory Data (last 24 hrs) 04/27/20 00:10: WBC 5.6 D, Hgb 11.8 L, Hct 36.3 L D, Plt Count 219 04/27/20 00:10: Sodium 139, Potassium 3.1 L, BUN 89 H D, Creatinine 3.99 H D, Glucose 113 H, Total Bilirubin 0.4, AST 9 L, ALT 11 L, Alkaline Phosphatase 103, Lipase 232 - Problems (1) Enterocolitis Current Visit: Yes Status: Acute (2) Hypokalemia Current Visit: Yes Status: Acute (3) Seroma Current Visit: Yes Status: Acute (4) Acute kidney injury Current Visit: No Status: Acute (5) GI bleed Current Visit: No Status: Acute Qualifiers: GI bleed type/associated pathology: melena Qualified Code(s): K92.1 - Melena (6) Metabolic acidosis Current Visit: No Status: Acute Conclusions/Impression: Pt is a 79 y/o male with past medical hx of lung cancer in remission under surveillance presenting with n/v/d found to have na abdominal wall seroma, and was noted to be be in kidney failure, Agree with IVF hydration. Will switch to LR. Repeat bmp later in the day to assess need to switch to bicarb gtt Encourage po intake Hold home losartan, chlorthalidone. Avoid nephrotoxins, including nsaid, acei/arb, fleee eneamas, contrasted studies.
[2020-04-27] MEDS: Ringers Lactate 1,000 ML IV SCH ×3 (09:47→22:11)
[2020-04-27 10:32] LABS: Urine Appearance CLOUDY; Urine Bilirubin NEGATIVE (NEG); Urine Blood 1+ (NEG); Urine Color YELLOW; Urine Glucose NEGATIVE (NEG); Urine Protein TRACE (NEG); Urine Specific Gravity 1.015 (1.005-1.030); Urine Urobilinogen 0.2 mg/dL (0.2-1.0)
[2020-04-27] MEDS: HEPARIN 5000 UNIT/ML 1 ML VIAL SQ SCH ×2 (10:41→16:31)
--- NOTE | 2020-04-27 10:46 | RAD REPORT ---
EXAM DESCRIPTION: CT - Abdomen Pelvis Wo Contrast - 04/27/2020 7:05 am CLINICAL HISTORY: Abdominal pain. GI bleed. Generalized weakness, vomiting. COMPARISON: CT abdomen and pelvis 07/14/2019. TECHNIQUE: Axial unenhanced CT imaging of the abdomen and pelvis performed. Reformatted coronal and sagittal images reviewed. A dose reduction technique was utilized with automated exposure control according to patient size. FINDINGS: Bilateral lower lobe mild subpleural atelectasis. Heart is normal in size. There is extens phu mitral annular calcifications. There is a dual-lead pacemaker in the right atrium and ventricle. Significant aorta atherosclerosis within the imaged ascending aorta. Normal liver. Gallbladder has been resected. Normal spleen. Mild fatty atrophy of the pancreas. Maia l adrenal glands. Right and left kidney appear normal. There is significant abdominal aorta and iliac artery atherosclerosis. No aneurysm. Inferior vena cava is flat and contour indicative of hypovolemi a. Nonenlarged retroperitoneal lymph nodes. Significant atherosclerosis within the splenic and superi or mesenteric artery as well as origin of the left renal artery. There is a small hiatal hernia. Stomach otherwise normal. There is evidence of right hemicolectomy. A nastomotic sutures are noted at the right upper quadrant. Minimal dilatation of the small bowel just proximal to the anastomosis. No obstruction. There are fluid levels throughout the colon. There is no ascites. No free air. The bladder is thickened diffusely. There is a thick-walled elongated fluid collection within the rig ht hemipelvis, 9.3 x 3.4 x 3.1 cm with adjacent edema. No pelvic adenopathy. There is moderate lumbar spondylosis. Mild L3-4, L4-5 diffuse disc bulge with mild hypertrophic endpl ate changes. Intact bony pelvis. Normal hips. IMPRESSION: 1. Status post right hemicolectomy. Fluid levels within the distal small bowel and colon compatible with enteritis. 2. Thick-walled fluid collection up to 9.3 cm within the right hemipelvis with adjacent edema suggest phu of abscess. 3. Cystitis. 4. Extensive vascular disease. 5. Hypovolemia. Electronically signed by: Herminia De La Garza DO 04/27/2020 1:57 AM CDT Due to temporary technical issues with the PACS/Fluency reporting system, reports are being signed by the in house radiologist without review as a courtesy to ensure prompt reporting. The interpreting r adiologist is fully responsible for the content of the report.
[2020-04-27 11:06] LABS: Urine Microscopic Reflex ORDER UMIC
[2020-04-27 11:16] LABS: Urine Bacteria <20 /HPF (NONE SEEN); Urine Culture Reflex Order REFLEXED
[2020-04-27 11:17] LABS: Urine Urothelial Cells <5 /HPF (NONE SEEN)
--- NOTE | 2020-04-27 14:08 | CON ---
Date of Consultation: 04/27/2020 Brief History Of Present Illness: Patient is a 79-year-old male with history of lung cance r, status post chemoradiation, now under surveillance, who presented to the emergency department with complaints of diarrhea of approximately 3 weeks' duration. He had reports of some vomiting as well. Denied fever or chills, did not have any abdominal pain. He had some generalized weakness, intermi ttent abdominal pain with [id number] intensity. He is scheduled to have an endoscopy with Dr. Fisher. He currently states he feels quite well and is tolerating diet during my initial examinati on. He has no complaints. No abdominal distention. No sick contacts. No recent travel. No COVID exposures. Past Medical History: Significant for lung cancer, gastric ulcer, anemia, neuropathy, hypertension, gastroparesis, questionable colon surgery for uncertain etiology. Past Surgical History: Includes a partial toe amputation, scar of the right arm removed, bilateral i ngrown toenails. Allergies: HYDRALAZINE. Home Medications: Include aspirin, atorvastatin, , Catapres, Plavix, cyanocobalamin, finas teride, gabapentin, hydrocodone, losartan, meclizine, metoprolol, nortriptyline, pantoprazole, KCl, s ucralfate, trazodone, hydrocortisone cream. Family History: Reviewed, noncontributory. Social History: He denies smoking, recreational drug use, but does admit to use social alcohol on oc casions. Review of Systems: Other than HPI, 10-point review of systems is negative. The patient is a somewhat poor historian dur ing my examination and appears to have low-grade confusion and poor insight into his past medical his tory, but answers questions appropriately to some information is obtained from chart. Physical Examination: Vital Signs: At the time of examination, his BMI is 21. General: He is awake, alert, and oriented, but is a poor historian as described and has poor insight into his medical condition and told me that he thought he had lymphoma rather than lung cancer. HEENT: Otherwise normocephalic. His sclerae anicteric. Mucous membranes are moist. Oropharynx is clear. Neck: Supple. No JVD. Chest: Normal expansion and excursion. Cardiovascular: Regular rate and rhythm. Pulmonary: Clear to auscultation bilaterally. Abdomen: Soft, nontender, nondistended. No rebound. No guarding. No focal peritonitis. Extremities: No clubbing, cyanosis, or edema. Skin: Warm and dry. Laboratory Data: Reveals a white blood cell count of 7.3, hemoglobin is 10.5, hematocrit 32.0, plate let count is 226. His neutrophils are 77.6%. His sodium is 142, potassium 4.0, chloride 112, carbon dioxide 17, BUN is 87, creatinine 3.6, glucose is 113, calcium 8.3, phosphorus 6.1, magnesium 1.7, t otal bilirubin 0.4, direct bilirubin 0.1, AST 9, ALT 11, alkaline phosphatase 103, lipase is 232. He had a UA, which showed positive white blood cells, 2+ leukocyte esterase. He had imaging performed which included an abdomen and pelvis CT on 04/27 officially read as status post right hemicolectomy, fluid in the distal small bowel, and colon compatible with possible enteritis. Thick walled fluid co llection up to 9.3 within the right hemipelvis with adjacent edema suggestive of abscess, cystitis, e xtensive vascular disease, hypovolemia. Assessment And Plan: This is a 79-year-old male who comes in with failure to thrive and the symptoms as described above with dehydration and possible enteritis. 1.Intravenous fluid hydration. 2.Antibiotic coverage. 3.Serial abdominal exams. 4.Continue medical management. 5.I do not find that the patient has an evidence of abscess on his clinical examination as he has no tenderness in the pelvic area as well as abdominal area. Continue plan per primary team. I will follow along with you. HEATHER/NENA Voice ID: [id number] Report ID: [id number]
[2020-04-27 14:44] LABS: C.diff Antigen/Toxin Ag pos : Tox neg (NEG : NEG)
--- NOTE | 2020-04-27 15:32 | P.PN ---
Date of Service: 04/27/20 d/w with surgery , no need for intervention of chronic abdominal seroma now ,if worsneing abdominal pain , may need IR drainage
[2020-04-27] MEDS: VANCOMYCIN ORAL SOLN 250 MG/5 ML OSYR PO SCH ×2 (17:15→22:36)
[2020-04-27] MEDS ORDERED: HYDROCODONE/APAP 7.5/325 MG TAB PO PRN (22:09)
[2020-04-28] MEDS: METRONIDAZOLE 500mg IVPB 500 MG/100 ML BAG IV SCH ×2 (00:31→08:33)
[2020-04-28] MEDS: HEPARIN 5000 UNIT/ML 1 ML VIAL SQ SCH ×3 (00:32→15:48)
[2020-04-28] MEDS: VANCOMYCIN ORAL SOLN 250 MG/5 ML OSYR PO SCH ×3 (05:32→16:05)
[2020-04-28] MEDS: PANTOPRAZOLE 40MG TABLET PO SCH (05:32)
[2020-04-28 06:05] LABS: Magnesium 1.7 mg/dL (1.8-2.4)
[2020-04-28 06:06] LABS: Potassium 2.9 mmol/L (3.5-5.1)
[2020-04-28] MEDS ORDERED: MAGNESIUM SULFATE 1 gm IVPB 1 GM/100 ML BAG IV ONE (06:12)
[2020-04-28] MEDS ORDERED: ENALAPRILAT 1.25 MG/ML VIAL IV ONE (06:20)
[2020-04-28] MEDS ORDERED: AMLODIPINE 10 MG TAB PO SCH (06:25)
[2020-04-28] MEDS: Ringers Lactate 1,000 ML IV SCH ×3 (06:49→17:43)
[2020-04-28] MEDS: KCL 20 MEQ/100 mL IVPB 20 MEQ/100 ML BAG IV SCH ×3 (06:49→11:45)
[2020-04-28] MEDS: CIPROFLOXACIN 400mg IV 400 MG/200 ML BAG IV SCH (08:33)
[2020-04-28] MEDS: ASPIRIN EC 81 MG TAB PO SCH (08:34)
[2020-04-28] MEDS: CLOPIDOGREL 75 MG TABLET PO SCH (08:35)
[2020-04-28] MEDS: MECOBALAMIN PO SCH (08:36)
[2020-04-28] MEDS: AMLODIPINE 10 MG TAB PO SCH (08:37)
[2020-04-28] MEDS: METOPROLOL TAR 25 MG TAB PO SCH ×3 (08:37→20:54)
[2020-04-28] MEDS: POTASSIUM CL SA 10 MEQ TAB PO SCH (08:39)
[2020-04-28] MEDS: SUCRALFATE 1 GM TABLET PO SCH ×4 (08:43→20:54)
[2020-04-28] MEDS ORDERED: FERROUS SULFATE 325 MG TAB PO SCH (09:00)
[2020-04-28] MEDS ORDERED: LOSARTAN POTASSIUM 50 MG TABLET PO SCH (09:00)
[2020-04-28] MEDS ORDERED: CLOPIDOGREL BISULFATE PO SCH (09:00)
[2020-04-28] MEDS ORDERED: FOLIC ACID 1 MG TABLET PO SCH (09:00)
[2020-04-28] MEDS ORDERED: METOPROLOL TAR 25 MG TAB PO SCH (09:00)
--- NOTE | 2020-04-28 15:19 | P.PN ---
Subjective Date of Service: 04/28/20 Chief Complaint: Generalize weakness Subjective: No new changes, No C/O voiced (still diarrhea x3 today - c/wo of non healing right leg ulcer , s/p prior wound care follow up - no more abdominal cramps) Physical Examination - Vital Signs Temperature: 97.0 F Blood Pressure: 135/63 Pulse: 54 Respirations: 16 Pulse Ox (%): 100 - Physical Exam General: Alert, In no apparent distress, Oriented x3 HEENT: Atraumatic, Normocephalic Neck: Supple, 2+ carotid pulse no bruit Respiratory: Clear to auscultation bilaterally, Normal air movement Cardiovascular: No edema, Normal pulses, Regular rate/rhythm Musculoskeletal: No clubbing, Other (dsg over right LE) Neurological: Normal gait, Normal speech, Normal strength at 5/5 x4 extr External genitalia: No edema, No lesions - Studies Laboratory Tests 04/27/20 04/27/20 04/27/20 00:10 00:10 00:10 WBC 5.6 D RBC 4.13 L D Hgb 11.8 L Hct 36.3 L D MCV 87.8 MCH 28.6 MCHC 32.6 RDW 14.7 Plt Count 219 MPV 7.1 L Neutrophils % 74.4 H Lymphocytes % 14.3 L Monocytes % 10.6 Eosinophils % 0.2 Basophils % 0.5 Absolute Neutrophils 4.1 Absolute Lymphocytes 0.8 Absolute Monocytes 0.6 Absolute Eosinophils 0.0 Absolute Basophils 0.0 Sodium 139 Potassium 3.1 L Chloride 110 H Carbon Dioxide 16 L BUN 89 H D Creatinine 3.99 H D Estimated GFR 15 L Glucose 113 H Calcium 8.2 L Total Bilirubin 0.4 Direct Bilirubin 0.1 AST 9 L ALT 11 L Alkaline Phosphatase 103 Serum Total Protein 7.2 Albumin 3.5 Globulin 3.7 H Albumin/Globulin Ratio 0.9 L Lipase 232 Urine pH Ur Specific [place] Glucose (UA)(Auto) Urine Ketones Urine Blood Urine Nitrite Ur Leukocyte Esterase Urine RBC Urine WBC Ur Squamous Epith Cells Ur Urothelial Cells Amorphous Sediment Urine Bacteria Urine Culture Reflexed Urine Total Protein C. difficile Ag & Toxin ABO/Rh A POSITIVE Solid Phase Ab Screen Positive H Antibody Identification NO SIGNIFICANT ANTIBODIES 04/27/20 04/27/20 04/27/20 02:10 03:22 03:30 WBC RBC Hgb Hct MCV MCH MCHC RDW Plt Count MPV Neutrophils % Lymphocytes % Monocytes % Eosinophils % Basophils % Absolute Neutrophils Absolute Lymphocytes Absolute Monocytes Absolute Eosinophils Absolute Basophils Sodium Potassium Chloride Carbon Dioxide BUN Creatinine Estimated GFR Glucose Calcium Total Bilirubin Direct Bilirubin AST ALT Alkaline Phosphatase Serum Total Protein Albumin Globulin Albumin/Globulin Ratio Lipase Urine pH Cancelled Ur Specific [place] Cancelled Glucose (UA)(Auto) Cancelled Urine Ketones Cancelled Urine Blood Cancelled Urine Nitrite Cancelled Ur Leukocyte Esterase Cancelled Urine RBC 10-20 H Urine WBC 10-20 H Ur Squamous Epith Cells <5 Ur Urothelial Cells <5 Amorphous Sediment 1+ Urine Bacteria <20 Urine Culture Reflexed Reflexed Urine Total Protein Cancelled C. difficile Ag & Toxin Ag pos : tox neg A ABO/Rh Solid Phase Ab Screen Antibody Identification Microbiology Data (last 24 hrs): 04/27/20 02:10 Stool Fecal Leukocyte Stain - Final Medications List Reviewed: Yes Assessment And Plan - Current Problems (Diagnosis) (1) Enterocolitis Current Visit: Yes Status: Acute (2) Hypokalemia Current Visit: Yes Status: Acute (3) Seroma Current Visit: Yes Status: Acute (4) Acute anemia Current Visit: No Status: Acute (5) Acute kidney injury Current Visit: No Status: Acute (6) Metabolic acidosis Current Visit: No Status: Acute Physician Review: Patient Assessed, Agree with Above Assessment and Plan Physician Review Additional Text: # Colitis - persistent , due to enteritis seen on CT -Stool study with + C diff but neg toxin -despite neg toxin , since clinical enteuritis and ongoing diarrhea , tx for c diff -swithc flagyl to po tid -c/w started vanco po -continue started empirical abx -follow GI eval -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 # NAZANIN - due to pre-renal -c/w IVF - follow renal team # Hypokalemia - low at 2.9 , aggressively replete -start k-citrate tid - dose kcl 40 meq x1 now - due to GI loss - started on LR, -unable to get LR with kcl # Met Acidosis - persistent , follow with k-citrate - dose sodium bicarb 100 meq x1 now -due to GI loss # Seroma - chronic post hemaicolectomy , no need for drain at this time per surgery if asymptomatic DVT prop- sc heparin Anemia -dose IV iron , started po iron tabs to tid since loose stools Chronic Leg ulcer - consult wound car team while inpatient Dispo - possible home in am if diarrhea better
[2020-04-28] MEDS: metroNIDAZOLE 500 MG TABLET PO SCH ×2 (15:48→20:54)
[2020-04-28] MEDS: POTASSIUM 25 MEQ EFFERV TAB PO SCH ×2 (15:49→20:55)
[2020-04-28] MEDS ORDERED: POTASSIUM CL SA 10 MEQ TAB PO ONE (16:00)
[2020-04-28] MEDS ORDERED: SODIUM BICARB 50 MEQ/50ML VIAL IV ONE (16:00)
--- NOTE | 2020-04-28 16:23 | P.CNS ---
Date of Consult: 04/28/20 Subjective: Patient is a 79-year-old male who presents with diarrhea, weakness, decreased appetite and vomiting x3 weeks. Patient found to have wound to the left lower extremity which I have been consulted for. Patient examined at bedside. Patient reports wound to the left lower extremity for 6-8 months. Patient has been seen by a health plan specialist but reports the cost was to high to continue to go. The patient also reports seen by a vascular surgeon and had vascular intervention to the left lower extremity. Past medical/surgical history: Gastric ulcer, anemia, lung cancer, neuropathy, hypertension, gastroparesis, bilateral ingrown toenail surgery, and right partial toe amputation Family history: Noncontributory Social history: Former tobacco and alcohol use Allergies: Hydralazine Active Medications Hydrocodone Bitart/Acetaminophen ([place] 7.5/325 Mg) 1 tab PO DAILY PRN PRN Reason: Pain scale 2-4 (Mild) Stop: 05/27/20 22:10 Amlodipine Besylate (Norvasc) 10 mg PO DAILY [facility] Stop: 05/28/20 07:01 Last Admin: 04/28/20 08:37 Dose: 10 mg Documented by: Aspirin (Aspirin Ec) 81 mg PO DAILY [facility] Stop: 05/28/20 09:01 Last Admin: 04/28/20 08:34 Dose: 81 mg Documented by: Atorvastatin Calcium (Lipitor) 40 mg PO BEDTIME [facility] Stop: 05/28/20 21:01 Clopidogrel Bisulfate (Plavix) 75 mg PO DAILY [facility] Stop: 05/28/20 09:01 Last Admin: 04/28/20 08:35 Dose: 75 mg Documented by: Ferrous Sulfate (Feosol) 325 mg PO TID [facility] Stop: 05/28/20 21:01 Finasteride (Proscar) 5 mg PO BEDTIME [facility] Stop: 05/28/20 21:01 Heparin Sodium (Porcine) (Heparin 5,000 Units/Ml) 5,000 unit SQ Q8HR [facility] Stop: 05/27/20 09:01 Last Admin: 04/28/20 15:48 Dose: 5,000 unit Documented by: Home Med (Mecobalamin [B12 Active]) 1 tab PO DAILY [facility] Stop: 05/28/20 09:01 Last Admin: 04/28/20 08:36 Dose: Not Given Documented by: Home Med (Home Med) 1 ea PO BID [facility] Stop: 05/28/20 21:01 Ciprofloxacin/Dextrose (Cipro 400 Mg/200 Ml Ivpb (Premix)) 400 mg in 200 mls @ 200 mls/hr IV Q24H [facility]; Protocol Stop: 05/27/20 09:01 Last Admin: 04/28/20 08:33 Dose: 200 mls Documented by: Lactated Ringer's (Lactated Ringers) 1,000 mls @ 125 mls/hr IV .Q8H [facility] Stop: 05/28/20 15:01 Last Admin: 04/28/20 15:48 Dose: 1,000 mls Documented by: Metoprolol Tartrate (Lopressor) 25 mg PO BID [facility] Stop: 05/28/20 07:01 Last Admin: 04/28/20 09:00 Dose: Not Given Documented by: Metronidazole (Flagyl) 500 mg PO TID [facility]; Protocol Stop: 05/28/20 15:46 Last Admin: 04/28/20 15:48 Dose: 500 mg Documented by: Ondansetron HCl (Zofran) 4 mg IV Q6HP PRN PRN Reason: NAUSEA / VOMITING Stop: 05/27/20 04:40 Pantoprazole Sodium (Protonix Tab) 40 mg PO DAILYAC [facility]; Protocol Stop: 05/28/20 06:31 Last Admin: 04/28/20 05:32 Dose: 40 mg Documented by: Potassium Bicarbonate (K-Lyte) 25 meq PO TID [facility] Stop: 05/28/20 16:01 Last Admin: 04/28/20 15:49 Dose: 25 meq Documented by: Potassium Chloride (Klor-Con 10 Meq Tab) 20 meq PO DAILY [facility] Stop: 05/28/20 09:01 Last Admin: 04/28/20 08:39 Dose: Not Given Documented by: Sodium Chloride (Normal Saline Flush) 10 ml IV BID [facility] Stop: 05/27/20 09:01 Last Admin: 04/28/20 08:39 Dose: Not Given Documented by: Sucralfate (Carafate -Tab) 1 gm PO ACHS [facility] Stop: 05/28/20 07:31 Last Admin: 04/28/20 15:48 Dose: 1 gm Documented by: Vancomycin HCl (Vancocin) 250 mg PO Q6H [facility]; Protocol Stop: 05/27/20 17:01 Last Admin: 04/28/20 16:05 Dose: 250 mg Documented by: ROS: CV: Denies chest pain RESP: Denies shortness of breath, cough : reports some burning with urination, denies hematuria GI: Reports nausea and vomiting has improved, report diarrhea episode every 3 hr Extremities: Reports dry skin to bilateral upper and lower extremities Skin: Reports left lower extremity wound for 6-8 months Objective: Temp Pulse Resp BP Pulse Ox 97.0 F 54 16 135/63 100 04/28/20 15:26 04/28/20 15:26 04/28/20 15:26 04/28/20 15:26 04/28/20 15:26 Labs: Na 140, K 3.5, BUN 71, Creat 2.66, GFR 23, WBC 7.3, Hgb 10.5, Hct 32 ROS: General: Awake, alert, no acute distress CV: S1, S2 RESP: Good breath sounds ABD: nontender, bowel sounds present Extremities: 1+ left pedal pulse, 2+ right pedal pulses Skin: Left anterior lower extremity with arterial ulcer, wound bed with granulation tissue and slough, lluvia area with erythema Assessment and plan: LLE Arterial ulcer, recommend santyl daily UTI, UA shows 20-50 WBC and 2+ leukocyte esterase Enterocolitis, patient to have out patient endoscopy done Diarrhea, fecal leukocytes negative, will add probiotic Blood cultures 04/27 show no growth to date Currently on Cipro, Flagyl and Vancomycin Recommend to DC Flagyl, Continue Cipro for total of 5 days and to continue Vanco for total of 10 days Will continue to monitor Thank you for consult Patient discussed with
[2020-04-28] MEDS: COLLAGENASE 30 GM OINTMENT TOP SCH (17:52)
[2020-04-28] MEDS: ATORVASTATIN 40 MG TAB PO SCH (20:54)
[2020-04-28] MEDS: FERROUS SULFATE 325 MG TAB PO SCH (20:54)
[2020-04-28] MEDS: FINASTERIDE 5 MG TAB PO SCH (20:54)
[2020-04-28] MEDS ORDERED: FOLIC ACID 400 MG PO SCH (21:00)
[2020-04-29] MEDS: HEPARIN 5000 UNIT/ML 1 ML VIAL SQ SCH ×3 (00:10→16:00)
[2020-04-29] MEDS: VANCOMYCIN ORAL SOLN 250 MG/5 ML OSYR PO SCH ×2 (00:10→05:08)
[2020-04-29] MEDS: Ringers Lactate 1,000 ML IV SCH ×4 (02:59→23:00)
[2020-04-29] MEDS: PANTOPRAZOLE 40MG TABLET PO SCH (05:08)
[2020-04-29 05:26] LABS: Basophils % 0.7 % (0-1.3); Hematocrit 24.5 % (39.6-49.0); Lymphocytes % 23.2 % (15.3-44.8); MPV 6.8 fL (7.6-11.3); RBC Red Blood Cell Count 2.89 M/uL (4.33-5.43)
[2020-04-29 05:28] LABS: Protime INR 1.08
[2020-04-29 06:14] LABS: Albumin 2.8 g/dL (3.4-5.0); Bilirubin Total 0.3 mg/dL (0.2-1.0); Magnesium 1.6 mg/dL (1.8-2.4); Phosphorus 1.4 mg/dL (2.5-4.9); Potassium 3.9 mmol/L (3.5-5.1); Protein, Total 5.2 g/dL (6.4-8.2)
[2020-04-29] MEDS ORDERED: MAGNESIUM SULFATE 1 gm IVPB 1 GM/100 ML BAG IV ONE (06:31)
[2020-04-29] MEDS ORDERED: POTASSIUM PHOS IN 0.9 % NACL 15 MMOL/250 ML BAG IV ONE (06:32)
[2020-04-29] MEDS: POTASSIUM CL SA 10 MEQ TAB PO SCH (07:48)
[2020-04-29] MEDS: POTASSIUM 25 MEQ EFFERV TAB PO SCH ×3 (07:49→21:43)
[2020-04-29] MEDS: CIPROFLOXACIN 400mg IV 400 MG/200 ML BAG IV SCH (08:22)
[2020-04-29] MEDS: LACTOBACILLUS/ACIDOPHILUS TAB PO SCH (08:23)
[2020-04-29] MEDS: metroNIDAZOLE 500 MG TABLET PO SCH (08:23)
[2020-04-29] MEDS: AMLODIPINE 10 MG TAB PO SCH (08:23)
[2020-04-29] MEDS: CLOPIDOGREL 75 MG TABLET PO SCH (08:23)
[2020-04-29] MEDS: SUCRALFATE 1 GM TABLET PO SCH ×4 (08:24→21:44)
[2020-04-29] MEDS: ASPIRIN EC 81 MG TAB PO SCH (08:24)
[2020-04-29] MEDS: FERROUS SULFATE 325 MG TAB PO SCH ×3 (08:24→21:44)
[2020-04-29] MEDS: MECOBALAMIN PO SCH (08:24)
[2020-04-29] MEDS: COLLAGENASE 30 GM OINTMENT TOP SCH (08:24)
[2020-04-29] MEDS: METOPROLOL TAR 25 MG TAB PO SCH ×2 (08:29→21:44)
--- NOTE | 2020-04-29 10:53 | P.PN ---
Date of Service: 04/29/20 Subjective: Patient is a 79-year-old male who presents with diarrhea, weakness, decreased appetite and vomiting x3 weeks. Patient found to have wound to the left lower extremity which I have been consulted for. Patient examined at bedside. Patient reports wound to the left lower extremity for 6-8 months. Patient has been seen by a air cargo specialist supervisor but reports the cost was to high to continue to go. The patient also reports seen by a vascular surgeon and had vascular intervention to the left lower extremity. Patient examined at bedside. Reports Diarrhea episodes have increased. Patient ambulated with PT today. Denies nausea, shortness of breath and fevers. Objective: Temp Pulse Resp BP Pulse Ox 97.4 F 60 16 174/71 H 100 04/29/20 08:00 04/29/20 08:29 04/29/20 08:30 04/29/20 08:29 04/29/20 08:30 Labs: Na 142, K 3.9, BUN 46, Creat 1.56, GFR 43, WBC 4.3, Hgb 8.3, Hct 24.5 ROS: General: Awake, alert, no acute distress CV: S1, S2 RESP: Good breath sounds ABD: nontender, bowel sounds present Extremities: 1+ left pedal pulse, 2+ right pedal pulses Skin: Left anterior lower extremity dressing CDI, lluvia area with erythema Assessment and plan: LLE Arterial ulcer, recommend santyl daily UTI, Urine culture positive for Staph Aureus, sensitive to Cipro Diarrhea, Do not believe from infectious process, fecal leukocytes negative, will add Questran BID Blood cultures 04/27 show no growth to date Currently on Vancomycin and Cipro Recommend to DC Vancomycin Continue Cipro IV for 5 days, if diarrhea improves can switch to PO Will continue to monitor Patient discussed with
[2020-04-29] MEDS: CHOLESTYRAMINE/ASP 4 GM/PKT PO SCH (16:00)
--- NOTE | 2020-04-29 17:37 | PN ---
Date of Progress Note: 04/29/2020 Subjective: Patient seen and examined, chart reviewed, and case discussed with RN and Dr. Olivares. Andrew alaniz still had a couple of episodes of diarrhea. 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 Medications: List reviewed. Code Status: Full. Physical Examination: Vital Signs: Temperature 97.4, heart rate 67, blood pressure 177/81, respirations 18, O2 of 99% on r oom air. General: Awake, alert, oriented x3. Does not appear to be in any acute distress. Elderly male. CV: S1, S2. Regular rate and rhythm. Peripheral pulses present. Respiratory: Moving air well bilaterally. No wheezing or stridor. Gastrointestinal: Abdomen is soft, nontender, nondistended. Positive bowel sounds. Extremities: No clubbing, cyanosis, or edema. Neuro: Cranial nerves 2 through 12 intact grossly. No focal neurological deficits. Speech is marcela l. Skin: Patient has left lower extremity dressing in place, clean, dry, intact, chronic wound. Laboratory Data: WBC 4.3, H and H 8.3 and 24.5, platelets 186. Sodium 142, potassium 3.9, chloride 113, CO2 of 23, BUN 46, creatinine 1.56, glucose 99, calcium 7.9, phosphorus 1.4, magnesium 1.6. C d iff antigen positive toxin negative. Urine culture growing out 100,000 colony-forming units of Staph aureus. Blood cultures are negative. Stool cultures are pending. Assessment: 1.Acute enteritis and colitis, possibly due to Clostridium difficile antigen positive, but toxin is negative. PCR study is pending. Patient is on Cipro, Flagyl, and p.o. vancomycin. Appreciate ID in put. 2.Acute kidney injury, likely prerenal. Kidney function is improving. We will continue to monitor. Nephrology on board. 3.Hypokalemia. We will replace and monitor, likely secondary to diarrhea. 4.Hypophosphatemia. Replace and monitor secondary to diarrhea. 5.Hypomagnesemia. Replace and monitor secondary to gastrointestinal losses. 6.Metabolic acidosis, improving. 7.Lower extremity wound, chronic. We will continue dressings. 8.Acute cystitis without hematuria secondary to Staphylococcus aureus. Continue Cipro. 9.Patient has seroma, status post chronic hemicolectomy. 10.Deep vein thrombosis prophylaxis. Patient is on heparin. Plan: Resume home medications as appropriate. Continue wound care. Likely discharge in the 24-48 h ours depending on clinical response. /NENA Voice ID: [id number] Report ID: [id number]
[2020-04-29] MEDS: FINASTERIDE 5 MG TAB PO SCH (21:44)
[2020-04-29] MEDS: ATORVASTATIN 40 MG TAB PO SCH (21:44)
[2020-04-29] MEDS ORDERED: MELATONIN 5 MG TABLET PO SCH (22:45)
[2020-04-30 00:29] VITALS: O2SAT 100
[2020-04-30] MEDS: HEPARIN 5000 UNIT/ML 1 ML VIAL SQ SCH ×2 (00:57→09:00)
[2020-04-30] MEDS: Ringers Lactate 1,000 ML IV SCH (05:13)
[2020-04-30] MEDS: PANTOPRAZOLE 40MG TABLET PO SCH (05:13)
[2020-04-30 05:18] LABS: Basophils % 0.5 % (0-1.3); Hematocrit 25.9 % (39.6-49.0); Lymphocytes % 18.5 % (15.3-44.8); MPV 7.1 fL (7.6-11.3); RBC Red Blood Cell Count 3.03 M/uL (4.33-5.43)
[2020-04-30 06:02] LABS: Magnesium 1.5 mg/dL (1.8-2.4); Phosphorus 1.8 mg/dL (2.5-4.9); Potassium 4.3 mmol/L (3.5-5.1)
[2020-04-30] MEDS ORDERED: Magnesium Sulfate 2gm IVPB 2 G/50 ML BAG IV ONE (09:00)
[2020-04-30] MEDS: POTASSIUM 25 MEQ EFFERV TAB PO SCH (09:00)
[2020-04-30] MEDS: MECOBALAMIN PO SCH (09:00)
[2020-04-30 09:22] VITALS: BP 153/71; TEMP 97.5
[2020-04-30] MEDS: CIPROFLOXACIN 400mg IV 400 MG/200 ML BAG IV SCH (09:47)
[2020-04-30] MEDS: CHOLESTYRAMINE/ASP 4 GM/PKT PO SCH (09:47)
[2020-04-30] MEDS: FERROUS SULFATE 325 MG TAB PO SCH (09:48)
[2020-04-30] MEDS: CLOPIDOGREL 75 MG TABLET PO SCH (09:48)
[2020-04-30] MEDS: METOPROLOL TAR 25 MG TAB PO SCH (09:48)
[2020-04-30] MEDS: AMLODIPINE 10 MG TAB PO SCH (09:48)
[2020-04-30] MEDS: ASPIRIN EC 81 MG TAB PO SCH (09:49)
[2020-04-30] MEDS: POTASSIUM CL SA 10 MEQ TAB PO SCH (09:49)
[2020-04-30] MEDS: POTASS/SODIUM PHOSPHATE 1 PKT POWD.PACK PO SCH ×3 (09:49→11:00)
[2020-04-30] MEDS: LACTOBACILLUS/ACIDOPHILUS TAB PO SCH (09:49)
[2020-04-30] MEDS: SUCRALFATE 1 GM TABLET PO SCH ×2 (09:49→11:30)
[2020-04-30] MEDS ORDERED: HEPARIN 500 UNIT/5 ML SYR IV PRN (11:20)
--- NOTE | 2020-04-30 20:35 | DS ---
Date of Discharge: 04/30/2020 Consultants: 1.Dr. Olivares with Infectious Disease. 2.Dr. Steve with General Surgery. 3.Dr. Mendez with Nephrology. 4.Dr. Fisher with GI. Admitting Diagnoses: 1.Acute enterocolitis. 2.Hypokalemia. 3.Acute kidney injury. 4.Metabolic acidosis. 5.Neuroma. 6.History of lung cancer. 7.Neuropathy and gastroparesis. Discharge Diagnoses: 1.Acute enteritis and colitis, improved. 2.Hypokalemia, corrected. 3.Hypophosphatemia, replaced. 4.Hypomagnesemia, replaced. 5.Metabolic acidosis improved. 6.Lower extremity wound, chronic. We will continue with wound care. 7.Acute cystitis without hematuria secondary to Staphylococcus aureus, sensitive to Cipro. Treatmen t completed in hospital with 4 days of IV antibiotics. 8.Seroma status post chronic hemicolectomy. 9.Short-gut syndrome. 10.History of neuropathy. 11.History of gastroparesis. 12.History of lung cancer, status post chemoradiation therapy. Hospital Course: Patient is a 79-year-old male with history of lung cancer, status post chemoradiati on therapy, now under surveillance, anemia, neuropathy, hypertension, gastroparesis, short-gut syndro me, comes in with generalized weakness. Patient had some nausea, vomiting, but no fever. Patient al so had some acute kidney injury and electrolyte disturbances including low potassium, magnesium, and phosphorus. CT scan of the abdomen and pelvis showed intraabdominal seroma and fluid-filled bowels o f loop. He was started on antibiotics. Stool was checked for C diff, came back with positive antige n, but toxin was negative. Infectious Disease was also consulted. They did not recommend any furthe r Flagyl or p.o. Vancocin and this was thought to be chronic. 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 Additionally, patient was treated asymptomatically as well with IV fluids and hydration. His kidney function improved. He was seen by a bowl turner, Dr. Mendez. His kidne y function normalized. Patient had no signs of sepsis. White blood cell count was stable. He was a lso seen by Dr. Steve for the seroma on CT abdomen. This was not felt to be an abscess. There is no tenderness. No signs of infection. No signs of sepsis and Dr. Steve felt that this is a seroma . He recommended nonsurgical treatment follow up. Patient's urine culture did grow out Staphylococc us aureus which was sensitive to Cipro. Patient was treated with IV antibiotics for 4 days. Treatme nt is completed. He will not require any further antibiotics upon discharge. Patient was then clear ed for discharge by consultants standpoint and was sent home in a stable condition. Followup: Patient to follow up with primary care physician in 2 to 3 days. Follow up with Infectiou s Disease, Dr. Olivares in 2 weeks. Follow up with Dr. Fisher, GI in 2 weeks. Return to ER for wors ening condition. Follow up with general surgeon, Dr. Steve, in 2 weeks. Diet: Heart healthy. Activity: As tolerated. Medications: As per medication reconciliation list. Patient to hold his losartan for now. Amlodipi ne will be started instead for his blood pressure and his Lasix dose will be decreased to 20 mg. He will go out on magnesium supplement. Continue Santyl for his foot wound and probiotics. Patient nee ds to eat small meals, low-fiber due to a short-gut syndrome and diabetic gastroparesis. He needs to follow up with his specialists in order to continue his care. Physical Examination: General: Awake, alert, oriented x3, elderly male. CV: S1, S2. Respiratory: Moving air well bilaterally. Abdomen: Soft, nontender, nondistended. Positive bowel sounds. Extremities: No clubbing, cyanosis, or edema. Neurologic: Nonfocal. Total time spent discharging patient was 45 minutes. SA/MODL Voice ID: [id number] Report ID: [id number]
== END 2020-04-30 12:15 | disposition home or self-care (01) | DRG 372 ==
LOC: ER 23:18 → ERHOLD 04-27 03:37 → 2ND 04-27 04:12
PROVIDERS: ADMIT Internal Medicine; ATTEND Family Medicine
DX: A04.72 Enterocolitis due to Clostridium difficile, not specified as recurrent (principal); N17.9 Acute kidney failure, unspecified; E87.2 Acidosis; K92.1 Melena; L97.909 Non-pressure chronic ulcer of unspecified part of unspecified lower leg with unspecified severity; N30.00 Acute cystitis without hematuria; E87.6 Hypokalemia; I10 Essential (primary) hypertension; Z92.21 Personal history of antineoplastic chemotherapy; Z88.8 Allergy status to other drugs, medicaments and biological substances; Z79.82 Long term (current) use of aspirin; Z79.02 Long term (current) use of antithrombotics/antiplatelets; Z79.891 Long term (current) use of opiate analgesic; Z79.899 Other long term (current) drug therapy; Z89.421 Acquired absence of other right toe(s); Z85.118 Personal history of other malignant neoplasm of bronchus and lung; Z90.49 Acquired absence of other specified parts of digestive tract; D64.9 Anemia, unspecified; E83.39 Other disorders of phosphorus metabolism; E83.42 Hypomagnesemia; B95.61 Methicillin susceptible Staphylococcus aureus infection as the cause of diseases classified elsewhere; G62.9 Polyneuropathy, unspecified; K31.84 Gastroparesis; E11.43 Type 2 diabetes mellitus with diabetic autonomic (poly)neuropathy
CPT/HCPCS: 36415; 51702; 74176; 80048; 80053; 80076; 81003; 81015; 83690; 83735; 84100; 84132; 84443; 85025; 85610; 86850; 86870; 86900; 86901; 87040; 87045; 87046; 87077; 87086; 87088; 87177; 87186; 87209; 87324; 87449; 87493; 89055; 94760; 96361; 96374; 96375; 97116; 97161; 97530; 99285; J0744; J1642; J1644; J2405; J2543; J3475; J3590; J7030; J7120

== ENCOUNTER 2021-01-06 14:50 | Inpatient (IN) | payer MEDICARE ==
--- OUTSIDE RECORDS SUMMARY | 2021-01-06 14:53 | XMS REPORT | Clinical Summary ---
:1940 Author Organization [facility] Address [address] [place] [address] Care Team Providers Name Role Phone ViviensofíaAhmet sutton Primary Care Provider Allergies No Known Allergies [...] Assigned at Date Recorded Not on file Last Filed Vital Signs Not on file Plan of Treatment Not on file Results Not on fileafter 01/06/2020 Insurance Payer Benefit Plan / Subscriber ID Effective Dates Phone Addre ss Type Group [employer] HMO [id number] 2016-Lucia Slaughter Contracted ALL t
--- OUTSIDE RECORDS SUMMARY | 2021-01-06 14:53 | XMS REPORT | Clinical Summary ---
:1940 Author Organization [facility] Address [address] [place] [address] Care Team Providers Name Role Phone Asked, [...] with breakfast. Active Problems Problem Noted Date Sagle cell carcinoma Lung disease Surgical History Surgery Date Site/Laterality Comments CHOLECYSTECTOMY Medical History Medical History Date Comments Hypertension Anemia Lung disease Atrial fibrillation (HCC) Sleep apnea Mark cell carcinoma (HCC) Social History Tobacco Use Types Packs/Day Years Used Date Never Smoker Smokeless Tobacco: Never Used Sex Assigned at Date Recorded Not on file Last Filed Vital Signs Not on file Plan of Treatment Health Maintenance Due Date Last Done Comments COVID-19 VACCINE (1 of 2) 1956 SHINGLES VACCINES (#1) 1990 65+ PNEUMOCOCCAL VACCINE (1 of 1 - PPSV23) 2005 INFLUENZA VACCINE 06/18/2020 Results Not on fileafter 01/06/2020 Advance Directives For more information, please contact: [phone] Type Date Recorded Patient [employer] Consultant Explanati on Advance Directives, Living Will and Medical 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
--- OUTSIDE RECORDS SUMMARY | 2021-01-06 15:05 | XMS REPORT | Continuity of Care Document ---
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 Unspecified 06/01/2019 atrial [place] fibrillation Essential 06/01/2019 (primary) [place], M hypertension H [place] Gastroparesis 06/01/2019 [place] Personal history 06/01/2019 MH of peptic ulcer [place] disease Polyneuropathy, 06/01/2019 unspecified [place],M H [place] Personal history 06/01/2019 MH of other [place] malignant neoplasm of skin Personal history 06/01/2019 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[place],M dependence H [place] Anemia, 06/01/2019 unspecified [place] 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, 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/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 theast 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 Atrial Resolved Problem 07/03/2020 OPID fibrillation [place] (disorder) [place], [place], M H OPID [place], M H [place] Cholesterol Resolved Problem 07/03/2020 OPID (substance) [place], [place], M H OPID [place], M H [place] 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 [place], (disorder) [place] ,M H OPID [place], M H [place] Hypertensive Resolved Problem 07/03/2020 OPI D disorder, [place] systemic arterial [place], (disorder) [place] ,M H OPID [place], M H [place] Neuropathy Resolved Problem 07/03/2020 OPID (disorder) [place], [place], M H OPID [place], M H [place] Malignant Resolved Problem 07/03/2020 OPID neoplasm of skin Sug ar (disorder) [place], [place], M H OPID [place], M H [place] ABDMNAL PAIN Active [place] [facility] SITE [place] LEUKOCYTOSIS NOS Active [place] SEPTICEMIA NOS Active Sarkar gar [place] SYNCOPE AND Active Sugar COLLAPSE [place] PERITONEAL Active Sugar ABSCESS [place] ANEMIA NOS Active [place] MALAISE AND Active Sugar FATIGUE NEC Land OTHER INTESTINAL Active Sugar OBSTRUCTION Land ORTHOSTATIC Active HYPOTENSION [place] ACUTE KIDNEY Active FAILURE, [place] UNSPECIFIED SYNCOPE AND Active COLLAPSE [place] Medications Medication Details Route Status Patient Ordering Order Source Instructions Provider Date rivaroxaban 20 MG 20 mg, PO, Active 11/12/ Oral Tablet Daily, 0 2017 [Xarelto] Refill(s) Benzocaine 0.1 Notes: (Same Inactive MG/MG Oral Gel As: Maximum 2017 [facility] [Anbesol] Strength PM Orajel ) Nortriptyline Notes: (Same No Longer as:Pamelor, Active 2017 [facility] Aventyl) Finasteride Notes: (Same No Longer as: Proscar) Active 2017 [facility] "Do Not Crush" Women of childbearing age should not touch or handle broken tablets ferrous sulfate Notes: Give No Longer with food. Active 2017 [facility] "Do Not Crush" Aluminum Hydroxide Notes: No Longer / Magnesium (aluminum Active 2017 [facility] Hydroxide / hydroxide-magn Simethicone esium hyd-simethicon e [phone] ml 30 ml ud SANDRA) Sucralfate Notes: May No Longer interfere 2017 [facility] w/enteral feeds - Take 1 hr before or 2 hr after antacids, dairy pdt, meals & minerals - On empty stomach. For patients unable to swallow tablet, dissolve in 10mL - 30mL of water or juice and stir before giving. (Same As: Carafate) Xarelto 20 mg, Route: No Longer PO, Drug form: Active 2017 [facility] TAB, Daily, Dosing Weight 90.909, kg, Start date: 11/11/18 9:00:00 SHEET METAL TECHNICIAN, Duration: 30 day, Stop date: 12/10/18 9:00:00 SHEET METAL TECHNICIAN Prilosec 40 mg, Route: Inactive PO, Drug form: 2017 [facility] DRC, BID, Dosing Weight 90.909, kg, Start date: 11/11/18 9:00:00 SHEET METAL TECHNICIAN, Duration: 30 day, Stop date: 12/10/18 17:00:00 SHEET METAL TECHNICIAN metoprolol Notes: (Same No Longer extended release as: Toprol XL) Active 2017 [facility] Do Not Crush lactobacillus Notes: Same as No Longer H rhamnosus GG Culturelle [facility] Notes: (Same No Longer as: Neurontin) Active 2017 [facility] Slow Release Iron 45 mg, 1 tab, Inactive 45 mg oral tablet, Route: PO, 2017 [place] extended release Drug form: ERTAB, BID, Dosing Weight 90.909, kg, Start date: 11/11/18 9:00:00 SHEET METAL TECHNICIAN, Duration: 30 day, Stop date: 12/10/18 17:00:00 SHEET METAL TECHNICIAN Vitamin B12 Notes: (Same No Longer As: Vitamin Active 2017 [facility] B12) Calcium Carbonate Notes: (Same No Longer 1250 MG / As: Vin-D, Active 2017 [facility] Cholecalciferol OsCal-D, 200 UNT Oral Oyster Tablet Calcium) lactobacillus 1 tab, Route: Inactive acidophilus PO, Drug Form: 2017 [facility] TAB, Dosing Weight 90.909, kg, Daily, Start date: 11/11/18 9:00:00 SHEET METAL TECHNICIAN, Duration: 30 day, Stop date: 12/10/18 9:00:00 SHEET METAL TECHNICIAN Azelastine Notes: No Longer hydrochloride (azelastine Active 2017 [facility] ast 0.137 MG/ACTUAT 137 Metered Dose Nasal microgram/inh [place] 30 ml nasal SPR) Non-formulary drug. Same As: Astelin) Protonix Notes: Tablet No Longer should not be Active 2017 [facility] chewed or crushed. (Same as: Protonix) Meclizine Notes: (Same No Longer as: Antivert) Active 2017 [facility] Clonidine Notes: (Same No Longer Hydrochloride 0.1 As: Catapres) Active 2017 [facility] MG Oral Tablet linaclotide 290 microgram, Active PO, Daily, PRN 2017 [facility] 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, 0 Refill(s) Slow Release Iron 45 mg = 1 tab, No Longer 11/11 45 mg oral tablet, PO, BID, 0 Active 2017 [place] extended release Refill(s) Ibuprofen 100.4 F, 0 Active Refill(s) 2017 [facility] meclizine 12.5 mg 12.5 mg = 1 No Longer oral tablet tab, PO, TID, Active 2017 [facility] ast PRN as needed for dizziness, # 60 tab, 0 Refill(s) Nortriptyline 25 mg, PO, No Longer Bedtime, 0 Active 2017 [facility] Refill(s) gabapentin 1,200 mg, PO, No Longer BID, 0 Active 2017 [facility] Refill(s) Hydrochlorothiazid 1 tab, PO, Active e 12.5 MG / Daily, # 90 [facility] Olmesartan tab, 1 medoxomil 40 MG Refill(s) Oral Tablet rivaroxaban 20 MG 20 mg = 1 tab, No Longer 11/11 Oral Tablet PO, Daily, # [address] [facility] [address] [Xarelto] 30 tab, 3 Refill(s) metoprolol 25 mg 25 mg = 1 tab, No Longer oral tablet, PO, BID, 0 2017 [facility] extended release Refill(s) Morphine Notes: (Same No Longer as:MORPhine Active 2017 [facility] Sulfate) Acetaminophen 325 Notes: (Same No Longer MG / Hydrocodone as: [place] 2017 [facility] Bitartrate 5 MG 325/5) Do not Oral Tablet [[place] exceed 4gm/day 5/325] of acetaminophen. Sodium Chloride 1,000 mL, No Longer 0.9% IV 1,000 mL Rate: 100 2017 [facility] ml/hr, Infuse over: 10 hr, Route: IV, Dosing Weight 90.909 kg, Total Volume: 1,000, Start date: 11/11/18 3:55:00 SHEET METAL TECHNICIAN, Duration: 30 day, Stop date: 12/11/18 3:54:00 SHEET METAL TECHNICIAN, 2.19, m2 Ondansetron Notes: (Same No Longer as: Zofran) 2017 [facility] MEDICATION WASTE Product Size: 4 mg Product Wasted: ___ mg Glucagon 1 mg, Route: No Longer IM, Drug form: 2017 [facility] PDR/INJ, PRN, Dosing Weight 90.909, kg, PRN Blood Glucose Results, Start date: 11/11/18 3:55:00 SHEET METAL TECHNICIAN, Duration: 30 day, Stop date: 12/11/18 3:54:00 SHEET METAL TECHNICIAN Dextrose 50% 25 gm, 50 mL, No Longer Syringe Route: IVP, 2017 [facility] Drug Form: INJ, Dosing Weight 90.909, kg, PRN, PRN Blood Glucose Results, Start date: 11/11/18 3:55:00 SHEET METAL TECHNICIAN, Duration: 30 day, Stop date: 12/11/18 3:54:00 SHEET METAL TECHNICIAN Saline Flush 0.9% Notes: (Same No Longer as: BD Active 2017 [facility] Posiflush) Sodium Chloride 1,000 mL, Inactive 0.9% (Bolus) IV Infuse Over: 1 2018 [place] hr, Route: IV, ONCE, Priority: STAT, Dosing Weight 90.909 kg, Start date: 11/10/18 23:49:00 SHEET METAL TECHNICIAN, Stop date: 11/10/18 23:49:00 SHEET METAL TECHNICIAN Sodium Chloride 1,000 mL, Inactive 0.9% (Bolus) IV 1,000 ml/hr, 2018 [place] [facility] Infuse Over: 1 hr, Route: IV, ONCE, Priority: STAT, Dosing Weight 90.909 kg, Start date: 11/10/18 23:45:00 SHEET METAL TECHNICIAN, Stop date: 11/10/18 23:45:00 SHEET METAL TECHNICIAN Fentanyl 50 microgram, Inactive Route: IVP, 2017 [place] ONCE, Dosing Weight 90.909, kg, Priority: STAT, Start date: 11/10/18 23:45:00 SHEET METAL TECHNICIAN, Stop date: 11/10/18 23:45:00 SHEET METAL TECHNICIAN Amlodipine Notes: (Same Inactive [place] as: Norvasc) 2017 [place] Docusate Sodium Notes: (Same Inactive [place] 100 MG Oral as: Colace) 2018 [place] Capsule [Colace] (Do Not Crush) Fludrocortisone Notes: (Same Inactive Sugar as: Florinef 2017 [place] Acetate) Give with food. Finasteride Notes: (Same Inactive Sug ar as: Proscar) 2018 [place] "Do Not Crush" Women of childbearing age should not touch or handle broken tablets ferrous sulfate Notes: Give Inactive [place] with food. 2018 [place] "Do Not Crush" Vitamin B12 Notes: (Same Inactive Sug ar As: Vitamin 2018 [facility] B-12) Flecainide Notes: (Same No Longer Sug ar as: Tambocor) Active 2017 [place] tamsulosin Notes: (Same No Longer Sug ar As: Flomax) Active 2017 [place] "Do Not Crush" Protonix Notes: Tablet No Longer [place] should not be Active 2017 [place] chewed or crushed. (Same as: Protonix) Prilosec 40 mg, Route: Inactive [place] PO, Drug form: 2017 [place] DRC, BID, Dosing Weight 87.727, kg, Start date: 06/03/18 17:00:00 CDT, Duration: 30 day, Stop date: 07/03/18 9:00:00 CDT 24 HR Metoprolol Notes: (Same No Longer [place] Tartrate 50 MG as: Toprol XL) Active [address] [place] Extended Release May split Tablet [Toprol] tab, but do not crush. valsartan Notes: Same as No Longer Sarkar marga Diovan Active 2017 [place] gabapentin 400 MG Notes: (Same No Longer Sugar Oral Capsule as: Neurontin) Active 2017 [place] [Neurontin] Sucralfate Notes: May No Longer [place] interfere Active 2017 [place] w/enteral feeds - Take 1 hr before or 2 hr after antacids, dairy pdt, meals & minerals - On empty stomach. For patients unable to swallow tablet, dissolve in 10mL - 30mL of water or juice and stir before giving. (Same As: Carafate) Clonidine Notes: (Same No Longer [place] Hydrochloride 0.1 As: Catapres) Active 2017 [place] MG Oral Tablet Amlodipine Notes: (Same No Longer Sug ar as: Norvasc) Active 2017 [place] zolpidem Notes: (Same No Longer Sugar As: Ambien) Active 2017 [place] Ambien 10 mg, Route: Inactive Sugar PO, Bedtime, 2017 Dosing Weight 87.727, kg, PRN as needed for insomnia, Start date: 06/02/18 22:33:00 CDT, Duration: 30 day, Stop date: 07/02/18 22:32:00 CDT potassium chloride Notes: Infuse Inactive Sugar at a rate of 2017 10 mEq/hr. (Same as: KCL) Labetalol 10 mg, 2 mL, No Longer [place] r Route: IV, Active 2017 Drug form: INJ, Q4H, Dosing Weight 87.727, [...] No Longer [place] Chloraseptic Active 2017 [place] (Same as: Chloraseptic, Sore Throat [place]) WASTE: F/P - Black; E - Municipal [...] 0.9% IV 1,000 mL Rate: 100 Active 2018 [place] ml/hr, Infuse over: 10 hr, Route: [...] 4 mL, Inactive Sugar Route: IVP, 2017 [place] Drug form: INJ, Q6H, Dosing Weight 86.364, kg, Start date: 04/13/18 12:00:00 CDT, Duration: 30 day, Stop date: 05/13/18 6:00:00 CDT Acetaminophen 325 Notes: (Same Inactive Sugar MG / Hydrocodone as: [place] 2018 [place] Bitartrate 5 MG 325/5) Do not Oral Tablet [[place] exceed 4gm/day 5/325] of acetaminophen. Cardizem CD Notes: (Same Inactive Sug ar as: Cardizem 2018 [place] CD) Do Not Crush Before meals. tamsulosin Notes: (Same No Longer Sug ar As: Flomax) Active 2017 [place] "Do Not Crush" Lactulose 667 Notes: (Same No Longer Sugar MG/ML Oral as:Chronulac) Active 2017 [place] Solution gabapentin 800 MG Notes: (Same No Longer Sugar Oral Tablet as: Neurontin) Active 2017 [place] [Neurontin] Sucralfate Notes: May No Longer Sugar interfere Active 2017 [place] w/enteral feeds - Take 1 hr before [...] Suga r PO, Drug form: Active 2017 [facility] DRC, BID, Dosing Weight 86.364, kg, Start date: 04/12/18 9:00:00 CDT, Duration: 30 day, Stop date: 05/11/18 17:00:00 CDT Fludrocortisone Notes: (Same No Longer H Sugar as: Florinef Active 2017 [facility] Acetate) Give with food. Azelastine 137 microgram, No Longer S ugar hydrochloride 1 spray, Active 2017 [facility] 0.137 MG/ACTUAT Route: NASAL, Metered Dose Nasal Drug Form: [place] SPRY, Dosing Weight 86.364, kg, BID, Start [...] Sugar 10 MG Oral Tablet PO, Bedtime, 2017 L and [Ambien] PRN for sleep, 0 [...] Tetrahydrocannabin See Active Sarkar gar ol Instructions, 2017 [place] 2.4mg 1 tablet at bedtime, 0 [...] Active Sugar oral tablet PO, Daily, # 2017 [place] 90 tab, 0 Refill(s) Hydralazine Notes: [...] Longer [place] As: Dulcolax, Active 2017 [facility] Bisco-Lax) Diphenhydramine Notes: (Same No Longer H Sugar as: Benadryl) 2017 [facility] Ondansetron Notes: (Same No Longer Sarkar gar as: Zofran) 2017 MEDICATION WASTE Product Size: 4 mg Product Wasted: ___ mg Saline Flush 0.9% Notes: (Same No Longer Sugar as: BD Active 2017 [facility] Posiflush) Hydrocortisone Notes: (Same No Longer Sugar as: 2017 [facility] Solu-CORTEF) Streptococcus 0.5 mL, Route: Inactive Sugar pneumoniae IM, ONCALL, 2017 [facility] serotype 1 Start date: capsular antigen 04/11/18 diphtheria [id number] 19:34:29 CDT, protein conjugate Stop date: vaccine / 05/11/18 Streptococcus 19:29:29 CDT pneumoniae serotype 14 capsular antigen diphtheria [id number] protein conjugate vaccine / Streptococcus pneumoniae serotype 18C capsular antigen d Saline Flush 0.9% Notes: (Same No Longer Sugar as: BD Active 2017 [facility] Posiflush) Saline Flush 0.9% Notes: (Same No Longer Sugar as: BD 2017 [facility] Posiflush) Sodium Chloride 1,000 mL, No Longer S ugar 0.9% IV 1,000 mL Rate: [address] [facility] ml/hr, Infuse over: 8 hr, Route: IV, Dosing Weight 91.108 kg, Total Volume: 1,000, Start date: 04/11/18 18:09:00 CDT, Duration: 30 day, Stop date: 05/11/18 18:08:00 CDT, 2.19, m2 Ondansetron Notes: (Same No Longer Sarkar gar as: Zofran) 2017 [facility] MEDICATION WASTE Product Size: 4 mg Product Wasted: ___ mg Acetaminophen Notes: Do not No Longer Sugar exceed [address] [facility] gm/day. (Same as: Tylenol) Sodium Chloride 500 mL, Infuse Inactive Sugar 0.9% (Bolus) IV Over: 1 hr, 2017 [place] Route: IV, ONCE, Priority: STAT, Dosing Weight [...] Notes: (Same Inactive Sugar as: Xarelto) 2015 [place] Administer with food potassium chloride Notes: (Same [...] Duration: 30 day, Stop date: 10/04/16 18:13:00 SHEET METAL TECHNICIAN, FOR ICU USE ONLY potassium Notes: (Same No Longer Suga r phosphate + sodium as: K Active 2015 [place] chloride 0.9% INJ Phosphate.) 1 250 mL mMol phoshate has 1.47 mEq potassium Infuse over 4 hours Magnesium Oxide Notes: (Same No Longer H Sugar as: Mag-Ox Active 2015 [facility] 400) Magnesium oxide [id number] elemental magnesium Dose=____mg magnesium oxide (___mg elemental magnesium) Calcium Gluconate Notes: WASTE: No Longer Sugar F/P - Sink; E Active 2015 [facility] - Municipal Trash Bin Calcium Carbonate Notes: (Same No Longer Sugar 500 MG Chewable As: Tums) Active 2015 [facility] Tablet Calcium Carbonate 500 mg = 200 mg elemental calcium Dose = mg calcium carbonate ( mg elemental calcium) Magnesium Sulfate Notes: WASTE: No Longer Sugar F/P - Sink; E Active 2015 [facility] - Municipal Trash Bin potassium Notes: (Same No Longer [place]uga r phosphate-sodium as: Phos-NaK) Active 2015 L and phosphate 250 Each 1.5 gm mg-280 mg-160 mg pkt has 250mg oral powder for phosphorous. reconstitution Mix w/2.5oz water and stir. Glucagon 1 mg, Route: No Longer Sugar IM, Drug form: Active 2015 PDR/INJ, PRN, Dosing Weight 84.091, kg, PRN Blood Glucose Results, Start date: 09/04/16 19:12:00 CDT, Duration: 30 day, Stop date: 10/04/16 18:11:00 SHEET METAL TECHNICIAN Dextrose 50% 12.5 gm, 25 No Longer Sarkar gar Syringe mL, Route: Active 2015 IVP, Drug Form: INJ, Dosing Weight 84.091, kg, PRN, PRN Blood Glucose Results, Start date: 09/04/16 19:12:00 CDT, Duration: 30 day, Stop date: 10/04/16 18:11:00 SHEET METAL TECHNICIAN Insulin, Aspart, Notes: Roll in No Longer Sugar Human palms of hands Active 2015 [facility] gently; Do not shake vigorously. (Same as: NovoLOG) "single patient use only" WASTE: F/P - Black; E - Municipal Trash Bin Stable for 28 days at room temperature. Expires in days from Date Diana Notes: (Same No Longer [place] as: Cardizem) Active 2015 [place] Before meals heparin additive 500 mL, Rate: No Longer Sugar 25,000 unit [14 21.36 ml/hr, Active 2015 [place] d unit/kg/hr] + Infuse over: Premix Diluent 23.4 hr, Dextrose 5% 500 mL Route: IV, Dosing Weight 76.3 kg, Total Volume: 500 mL, Start date: 09/04/16 14:55:00 CDT, Duration: 30 day, Stop date: 10/04/16 14:54:00 SHEET METAL TECHNICIAN Diltiazem Notes: (Same No Longer [place] as: Cardizem) Active 2015 [place] Lactulose Notes: (Same No Longer [place] as:Chronulac) Active 2015 [facility] sodium chloride 1,000 mL, Inactive Sarkar gar 0.9% 1000 ml INJ Rate: 100 2015 [place] 1,000 mL ml/hr, Infuse over: 10 hr, Route: IV, Dosing Weight 84.091 kg, Total Volume: 1,000, Start date: 09/04/16 0:27:00 CDT, Duration: 30 day, Stop date: 10/04/16 0:26:00 SHEET METAL TECHNICIAN Lisinopril Notes: (Same No Longer Sug ar as: Prinivil, Active 2015 [place] Zestril) Lactulose Notes: (Same Inactive Sugar as:Chronulac) [...] 1000 ml INJ Rate: 150 Active 2015 [place] 1,000 mL ml/hr, Infuse over: 6.7 hr, Route: IV, Dosing Weight 84.091 kg, Total Volume: 1,000, Start date: 09/03/16 12:39:00 CDT, Duration: 30 day, Stop date: 10/03/16 12:38:00 SHEET METAL TECHNICIAN Hydralazine 10 mg, Route: Inactive Sarkar gar IV, ONCE, 2015 Dosing Weight 84.091, kg, Priority: NOW, Start date: 09/03/16 11:52:00 CDT, Stop date: 09/03/16 11:52:00 CDT Fleet Enema 133 mL, Route: Inactive Alison ugar FL, Drug Form: 2015 OPAL, Dosing Weight 84.091, [...] Longer [place] as: Ditropan) Active 2015 [place] 24 HR Nifedipine Notes: (Same Inactive H Sugar 30 MG Extended as: Procardia 2015 [place] d Release Tablet XL) "Do Not [...] 60 MG Extended PO, Daily, # Active 2016 [place] Release Tablet 30 tab, 0 Refill(s) Acetaminophen 325 Notes: Same as No Longer 09/02 [place] MG / Hydrocodone [place] Active 2015 [place] Bitartrate 7.5 MG 325-7.5mg [...] Sugar Oral Tablet as: Neurontin) Active 2015 Docusate Sodium 50 50 mg, 1 cap, Inactive Sugar MG Oral Capsule Route: PO, 2015 [place] [Colace] BID, Dosing Weight 84.091, kg, Start date: 09/01/16 17:00:00 CDT, Duration: 30 day, Stop date: 10/01/16 9:00:00 SHEET METAL TECHNICIAN Acetaminophen 325 Notes: (Same Inactive Sugar MG / Hydrocodone as: [place] 2015 [place] Bitartrate 5 MG 325/5) Do not Oral Tablet [[place] exceed 4gm/day 5/325] of acetaminophen. Saline Flush 0.9% Notes: (Same No Longer Sugar as: BD Active 2015 [place] Posiflush) tramadol Notes: Not to No Longer [place] hydrochloride 50 exceed Active 2015 MG Oral Tablet 400mg/day. (Same As: Ultram) Saline Flush 0.9% Notes: (Same No Longer Sugar as: BD Active 2015 Posiflush) remove patch Notes: Remove No Longer [...] as: Mag-Ox Active 2014 400) Magnesium oxide [id number] elemental magnesium Dose=____mg magnesium oxide (___mg elemental magnesium) Acetaminophen 325 Notes: Do not No Longer Sugar MG / Hydrocodone exceed 4gm/day Active 2014 [place] Bitartrate 10 MG of Oral Tablet [[place] acetaminophen. 10/325] (Same as: [place] 325/10) Lisinopril Notes: (Same No Longer Sug ar as: Prinivil, Active 2014 [place] Zestril) Magnesium Sulfate 2 gm, 50 mL, Inactive Sugar Route: IVPB2014 [facility] Drug form: INJ, Q2H, Dosing Weight 79.716, kg, Total dose = 4 gm, Start date: 10/08/15 16:00:00, Duration: 2 doses or times, Stop date: 10/08/15 18:00:00 Dilaudid Notes: (Same Inactive Sugar as: Dilaudid) 2014 phenol Notes: No Longer Sugar Chloraseptic Active 2014 [place] (Same as: Chloraseptic, Sore Throat [place]) Dilaudid Notes: (Same Inactive Sugar as: Dilaudid) 2014 Diphenhydramine Notes: (Same No Longer H Sugar as: Benadryl) Active 2014 [place] Temazepam Notes: (Same No Longer [place] As: Restoril) Active 2014 [facility] Amino Acids 4.25% Notes: Same No Longer Sugar with 5% Dextrose as: ClinimixE Active 2014 L and and Electrolytes (Clinimix E Sulfite-Free) 1000 mL Hydromorphone Notes: (Same No Longer Sugar as: Dilaudid) Active 2014 [facility] ketOROLAC 30 mg/mL 4 days No Longer 10/07 [place] injectable MEDICATION Active 2014 [place] solution WASTE Product Size: 30 mg Product Wasted: _15__ mg Benadryl Notes: (Same Inactive Sugar as: Benadryl) 2014 Magnesium Sulfate 2 gm, 50 mL, Inactive Sugar Route: IVPB2014 [facility] Drug form: INJ, ONCE, Dosing Weight 79.716, [...] Patch mg/24 hours; Patch is applied weekly. [id number] . "Remove old patch before application of [...] No Longer Sugar MG / Hydrocodone as: [place] Active 2014 Bitartrate 5 MG 325/5) Do [...] tab, PO, 2014 Daily, # 30 tab, 0 Refill(s) Megestrol Acetate 400 mg = 10 Active Sugar 40 MG/ML Oral mL, PO, BID, # 2014 [place] d Suspension 600 mL, 0 Refill(s) [...] No Longer Sugar as: Potassium Active 2014 [place] Chloride) Florinef Notes: (Same No Longer Sugar as: Florinef Active 2014 [place] Acetate) Give with food. Aspirin 325 MG Notes: Take No Longer Sugar Oral Tablet with food. Active 2014 [place] Megace 400 mg, 10 mL, No Longer [...] Longer Sug ar Rate: 75 Active 2014 [place] ml/hr, Infuse over: 13.3 hr, Route: IV, Dosing Weight 84.091 kg, Total Volume: 1,000, Start date: 06/13/15 21:09:00, Stop date: 07/13/15 21:08:00 tamsulosin Notes: (Same No Longer Sug ar As: Flomax) Active 2014 [place] "Do Not Crush" Coreg Notes: Give No Longer Sugar with food. Active 2014 [place] (Same As: Coreg) Lisinopril Notes: (Same No Longer Sug ar as: Prinivil, Active 2014 Zestril) Hydralazine Notes: (Same Inactive Sug ar Hydrochloride 25 as: 2014 [place] MG Oral Tablet Apresoline) May interfere w/enteral feedings Take With Food. Hydralazine Notes: (Same No Longer Sarkar gar as: Active 2014 Apresoline) Push over 5 minutes Hydralazine Notes: (Same Inactive Sug ar Hydrochloride 25 as: 2015 [place] MG Oral Tablet Apresoline) May interfere [...] Sugar oral tablet PO, Daily, # 2014 [place] 30 tab, 0 Refill(s) 24 HR [...] Sug ar As: Cleocin) 2014 Ciprofloxacin Notes: March Inactive Sug ar interfere 2014 w/enteral feedings [...] No Longer Sugar MG / Hydrocodone as: [place] Active 2014 Bitartrate 5 MG 325/5) Do not Oral Tablet exceed 4gm/day of acetaminophen. Acetaminophen 325 1 tab, PO, Active Sugar MG / Hydrocodone Q6H, PRN Pain 2014 L and Bitartrate 5 MG Score 1-3, # Oral Tablet [[place] 30 tab, 0 5/325] Refill(s) Hydralazine 50 [...] Sugar 90 MG Extended PO, Daily, # 2014 [place] [...] Morphine Notes: (Same Inactive Sugar as:MORPhine 2014 [facility] Sulfate) Fentanyl Notes: (Same Inactive Sugar as: Sublimaze) 2014 [facility] Preservative free. Meperidine Notes: (Same Inactive [place] as: Demerol) 2014 "Use Precaution in Elderly, Seizure disorders, and Renal impairment&quo t; Ondansetron Notes: (Same Inactive Sug ar as: Zofran) 2014 MEDICATION WASTE Product Size: 4 mg Product Wasted: ___ mg Oxycodone Notes: (Same Inactive Sugar as: 2014 [facility] Roxicodone) Acetaminophen Notes: Infuse Inactive Sugar over [...] Duration: 30 day, Stop date: 06/29/15 16:01:00 Mikkianz Notes: (Same No Longer Sugar as: INVanz) Active 2014 Refrigerate. NOT COMPATIBLE WITH D5W. Stable in refrigerator for 24 hours MEDICATION WASTE Product Size: 1000 mg Product Wasted: ___ mg vancomycin 2001 mg: No Longer Sugar infuse over Active 2014 Land 2.5 hours magnesium sulfate 1 gm, 50 mL, Inactive Sugar Route: IVPB, 2014 Drug form: INJ, ONCE, Start date: 05/30/15 11:00:00, Stop date: 05/30/15 11:00:00 Vancomycin 1 gm, Route: Inactive Suga r IVPB, Drug 2014 Land form: INJ, [id number], Dosing Weight 86.364, kg, Start date: 05/30/15 [...] Chloride 0.9% IV as: Zosyn) Active 2014 100 mL Dosing based on Piperacillin component MEDICATION WASTE Product Size: 3375 mg Product Wasted: ___ mg Omnipaque 300 Notes: (Same No Longer Sugar as:Omnipaque Active 2014 [facility] 300). Hydralazine Notes: (Same No Longer Sarkar [...] 06/23/15 2:02:00 Hydralazine Notes: (Same No Longer Sakrar gar as: Active 2014 [place] Apresoline) May interfere w/enteral feedings. Take With Food 24 HR Nifedipine Notes: (Same No Longer Sugar 60 MG Extended as: Procardia Active 2014 Charles d Release Tablet XL) "Do Not Crush" "Avoid grapefruit and grapefruit juice" Lisinopril Notes: (Same No Longer Sug ar as: Prinivil, Active 2014 [place] Zestril) Acetaminophen 325 Notes: (Same No Longer Sugar MG / Hydrocodone as: [place] Active 2014 [place] Bitartrate 5 MG 325/5) Do not Oral Tablet [[place] exceed 4gm/day 5] of acetaminophen. Hydralazine Notes: (Same Inactive Sug ar Hydrochloride 10 as: 2014 [place] MG Oral Tablet Apresoline) Push over 5 minutes Hydralazine Notes: (Same No Longer Sarkar gar as: Active 2014 [place] Apresoline) May interfere w/enteral feedings. Take With [...] Longer Sugar Levemir Do not Active 2014 [place] hold insulin without contacting prescriber "single patient use only" Insulin, Aspart, Notes: Roll in No Longer Sugar Human palms of hands Active 2014 [place] gently; Do not shake vigorously. (Same as: NovoLOG) "single patient use only" Stable for 28 days at room temperature. Expires in days from Date Sodium Chloride 1,000 mL, No Longer S ugar 0.154 MEQ/ML Rate: Titrate, Active 2014 [facility] Injectable Dosing Weight Solution 86.364, kg, Route: [...] Longer Sugar Syringe Route: IVP, Active 2014 [facility] Drug Form: INJ, Dosing Weight 86.364, kg, PRN, PRN Blood Glucose Results, Start date: 05/19/15 10:26:00, Duration: 30 day, Stop date: 06/18/15 10:25:00 Glucagon 1 mg, Route: No Longer Sugar IM, Drug form: Active 2014 [facility] PDR/INJ, PRN, Dosing Weight 86.364, kg, PRN [...] Longer Suga r As: Dulcolax, Active 2014 [facility] Bisco-Lax) Amino Acids 4.25% Notes: Same No Longer Sugar with 5% Dextrose as: ClinimixE Active 2014 L and and Electrolytes (Clinimix E Sulfite-Free) 2,000 mL Dulcolax Laxative Notes: (Same No Longer Sugar As: Dulcolax, Active 2014 Bisco-Lax) Vancomycin 1 gm, Route: Inactive Suga r IVPB, Drug 2014 form: INJ, [id number], Dosing Weight 86.364, kg, Priority: NOW, Start [...] 15% Dextrose as: Clinimix E Active 2014 [place] and Electrolytes 04/01 Standard (Clinimix E electrolytes [...] Capsule cap, PO, QAM, 2014 0 Refill(s) Bisacodyl 10 MG 10 mg = 1 Active Sug ar Rectal Suppository supp, [place], 2014 Charles d [Dulcolax] Q12H, PRN 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, [...] Sarkar gar oral tablet Instructions: Active 2014 Hold for SBP <110 tramadol 50 mg [...] 30 mg = 1 tab, No Longer 05/17/ Sugar 30 MG Extended PO, QAM, # [...] MG 40 mg = 1 cap, Active 05/17/ Sugar Enteric Coated PO, QAM, # 30 2014 Charles d Capsule [Prilosec] cap, 0 Refill(s) tamsulosin 0.4 mg 0.4 mg = 1 Active Sugar oral capsule cap, PO, 2014 Bedtime, # 30 cap, 0 Refill(s) Zosyn Notes: Infuse No Longer 05/17/ Sugar over 4 hours. Active 2014 (same [...] Sugar Enteric Coated PO, Daily, # 2014 [place] Tablet [Protonix] 90 tab, 0 Refill(s) Amino [...] 30 MG Extended PO, Daily, # 2014 Release Tablet 30 tab, 0 [Procardia] Refill(s) tamsulosin 0.4 mg 0.4 mg = 1 Active Sugar oral capsule cap, PO, After 2014 Breakfast, # 30 cap, 0 Refill(s) Sodium Chloride 250 mL, Rate: No Longer Sugar 0.9% (titrate) 250 director of claims for Active 2014 L and mL use [...] Sarkar gar Hydrochloride 25 as: Active 2014 [place] MG Oral Tablet Apresoline) May interfere w/enteral feedings Take With Food. 24 HR Nifedipine Notes: (Same No Longer Sugar 30 MG Extended as: Procardia Active 2014 Charles d Release Tablet XL) "Do Not [Procardia] Crush" "Avoid grapefruit and grapefruit juice" Lisinopril Notes: (Same No Longer Sug ar as: Prinivil, Active 2014 [place] Zestril) Sodium Chloride 250 mL, Rate: No Longer Sugar 0.9% (titrate) 250 director of claims for Active 2014 L and mL use [...] No Longer Sugar As: Restoril) Active 2014 [place] Maalox Advanced Notes: No Longer Sug ar Regular Strength (aluminum Active 2014 SUSP hydroxide-magn esium hyd-simethicon e [phone]/5 ml 30 ml ud SANDRA) Acetaminophen 325 Notes: Do not No Longer Sugar MG / Hydrocodone exceed 4gm/day Active 2014 Bitartrate 10 MG of Oral Tablet [[place] acetaminophen. 10/325] (Same as: [place] 325/10) Hydralazine Notes: (Same No Longer Sarkar gar as: Active 2014 [place] Apresoline) Push over 5 minutes 168 HR Clonidine Notes: Patch No Longer Sugar 0.79067 MG/HR delivers 0.2 Active 2014 Transdermal Patch mg/24 hours; Patch is applied weekly. "Remove old patch before application of new patch" (Same As: [id number] ) tamsulosin Notes: (Same No Longer Sug ar As: Flomax) Active 2014 "Do Not Crush" Hydralazine Notes: (Same No Longer Sarkar gar as: Active 2014 Apresoline) Push over 5 minutes Hydromorphone Notes: (Same No Longer Sugar as: Dilaudid) Active 2014 conc = 0.5 mg/ml Hydromorphone DOCUMENTATION NURSE Dose: ;Delay: ;Basal: Acetaminophen Notes: Infuse Inactive [...] Infuse (Clinimix E over: 22.2 hr, Sulfite-Free) 2000 Route: IVPB, mL Dosing Weight 104.545 kg, [...] as: Mag-Ox Active 2014 400) Magnesium oxide [id number] elemental magnesium Dose=____mg magnesium oxide (___mg elemental magnesium) potassium chloride Notes: Infuse No Longer 04/08 Sugar at a rate of Active 2014 10 mEq/hr. (Same as: KCL) potassium Notes: (Same No Longer Suga r phosphate + Sodium as: K Active 2014 Chloride 0.9% IV Phosphate.) 1 250 mL mMol phoshate has 1.47 mEq potassium Infuse over 4 hours Magnesium Sulfate Special No Longer S ugar Instructions: Active 2014 FOR ICU USE ONLY Neutra-Phos Notes: Same No Longer Sug ar as: Phos-Nak Active 2014 Mix 1 packet with 75 mL water or juice. Each packet has 160mg of sodium, 280mg of potassium, and 250mg of phosphorus Non-Formulary Item sodium phosphate + Special No Longer Sugar Sodium Chloride Instructions: Active 2014 [place] 0.9% IV 250 mL FOR ICU USE ONLY Magnesium Sulfate 2 gm, 50 mL, No Longer Sugar Route: IVPB, 2014 Drug form: INJ, [...] normal saline 0.9% 1,000 mL, No Longer 05// H Sugar IV 1,000 mL Rate: 150 Active 2014 [place] ml/hr, Infuse over: 6.7 hr, Route: IV, Dosing Weight 104.545 kg, Total Volume: 1,000, Start date: 04/07/15 8:48:00, Duration: 30 day, Stop date: 05/07/15 8:47:00 NS 1,000 mL 1,000 mL, Inactive Sugar Rate: 100 2014 [place] ml/hr, Infuse over: 10 hr, Route: IV, Dosing Weight 104.545 kg, Total Volume: 1,000, Start date: 04/07/15 7:42:00, Duration: 30 day, Stop date: 05/07/15 7:41:00 Protonix 40 mg, Route: No Longer Suga r IVP, Before Active 2014 Land Breakfast, Dosing Weight 104.545, kg, Start date: 04/07/15 7:30:00, Duration: 30 day, Stop date: 05/06/15 7:30:00 Protonix Notes: For IV No Longer Suga r push Active 2014 [place] reconstitute with 10 ml 0.9% sodium chloride [...] 500 500 mg = 1 No Longer 05/20/ M H Sugar MG Oral Tablet tab, PO, Q8H, Active 2014 Charles d # 21 tab, 0 Refill(s) omeprazole 40 mg Special Active Suga r oral delayed Instructions: 2015 [place] release capsule before a meal gabapentin 400 MG 1,200 mg = 3 Active H Sugar Oral Capsule cap, PO, 2014 Bedtime, # 120 cap, 0 Refill(s) Acetaminophen 325 100.4 F, # 30 Active Sugar MG / Hydrocodone tab, 0 2014 Bitartrate 5 MG Refill(s) Oral Tablet [[place] 5/325] Hydralazine 25 mg = 1 tab, Active Sarkar gar Hydrochloride 25 PO, TID, PRN 2014 [place] MG Oral Tablet blood pressure, # 120 tab, 0 Refill(s) ciprofloxacin 500 500 mg = 1 No Longer H Sugar mg oral tablet tab, PO, Q12H, Active 2014 [place] # 14 tab, 0 Refill(s) Hydromorphone Notes: (Same No Longer Sugar as: Dilaudid) Active 2014 conc = 0.5 mg/ml Hydromorphone DOCUMENTATION NURSE Dose: ;Delay: ;Basal: Diflucan Notes: (Same No Longer Sugar as: Diflucan) Active 2014 vancomycin 2001 mg: No Longer Sugar infuse over Active 2014 2.5 hours Naloxone Notes: Same as No Longer Sug bronson Narcan Active 2014 Vancomycin 1 gm, Route: Inactive Leopoldo holden IVPB, Drug 2014 form: INJ, [id number], Dosing Weight 104.545, kg, [...] ugar IV 1,000 mL Rate: 25 2014 ml/hr, Infuse over: 40 hr, Route: IV, [...] No Longer Sugar MG / Hydrocodone as: [place] Active 2014 Bitartrate 5 MG 325/5) Do [...] Preservative free. Omnipaque 300 Notes: (Same Inactive 04/06/ S ugar as:Omnipaque 2014 300). Morphine Notes: (Same Inactive Sugar as:MORPhine [...] Sugar Oral Tablet PO, TID, PRN Active 2014 [place] [Zofran] as needed for nausea/vomitin g, X 5 day, # 15 tab, 0 Refill(s) ciprofloxacin 500 500 mg = 1 No Longer 05/18/ M H Sugar mg oral tablet tab, PO, Q12H, Active 2014 [place] X 7 day, # 14 tab, 0 Refill(s) Hydralazine 160 No Longer Sugar Hydrochloride 25 Active 2014 [place] MG [...] Longer Sugar as: Dilaudid) Active 2014 Land Hydralazine Notes: (Same No Longer Sarkar gar [...] Active 2014 conc = 0.5 mg/ml Hydromorphone DOCUMENTATION NURSE Dose: ;Delay: ;Basal: Lactated Ringers 1,000 mL, [...] No Longer Sugar As: Vitamin Active 2014 [facility] B1) Hydromorphone Notes: (Same No Longer Sugar as: Dilaudid) Active 2014 conc = 0.5 mg/ml Hydromorphone DOCUMENTATION NURSE Dose: ;Delay: ;Basal: Naloxone Notes: Same as [...] Notes: (Same Inactive Sugar as:MORPhine 2014 Sulfate) Labetalol Notes: (Same Inactive Sugar as: [...] Longer Sug ar as: Folvite) Active 2014 [facility] Sodium Chloride 250 mL, Rate: No Longer Sugar 0.9% (titrate) 250 director of claims for Active 2014 L and mL use [...] Sugar oral tablet tab, PO, Q12H, 2014 [place] 0 Refill(s) gabapentin 400 MG 400 mg = 1 Active Sugar Oral Capsule cap, PO, QAM, 2014 [place] 0 Refill(s) lisinopril 20 mg 10 mg = 0.5 Active Sugar oral tablet tab, PO, BID, 2014 [place] 0 Refill(s) Vitamin B6 = 1 tab, PO, Active Sugar BID, 0 2015 Land Refill(s) Metoprolol 50 mg = 1 [...] Active Sugar hydrochloride 50 tab, PO, BID, 2015 L and MG Oral Tablet 0 Refill(s) Acetaminophen 325 Notes: Do not No Longer Sugar MG / Hydrocodone exceed 4gm/day Active 2014 Bitartrate 10 MG of Oral Tablet [[place] acetaminophen. 10/325] (Same as: [place] 325/10) Acetaminophen 325 1 tab, Route: Inactive Sugar MG / Hydrocodone PO, Drug Form: 2014 Bitartrate 10 MG TAB, Dosing Oral Tablet [[place] Weight 10/325] 106.818, kg, ONCE, STAT, Start date: 03/28/15 20:53:00, Stop date: 03/28/15 20:53:00 Docusate Notes: (Same No Longer Sugar as: Colace) Active 2014 (Do Not Crush) Acetaminophen 325 Notes: (Same No Longer Sugar MG / Hydrocodone as: [place] Active 2014 Bitartrate 5 MG 325/5) Do [...] (Same No Longer Sugar as:Omnipaque Active 2014 [place] 300). normal saline 0.9% 500 mL, Rate: [...] hydrALAZINE Assertion Drug Active flushing M H OPID <sup>1</sup allergy [place] > NKFA Assertion Food Active MH OPI D allergy [place] t Immunizations Immunization Date Given Site Status Last Comments Source Updated influenza virus 10/06/[address] [facility] vaccine, deltoid [place], inactivated OPID [facility] [place] Results Order Name Results Value Reference Date Interpretation Comments Cristine rce Range MOLECULAR C difficile Negative Negative 11/12 DIAGNOSTIC DNA (11/12/18 8:47 AM) So njhea CHEM PANEL eGFR 58 11/12 Result Comment: The [facility] eGFR is calculated using the CKD-EPI [...] PANEL CO2 24 24 - 32 11/12 [facility] CHEM PANEL AGAP 10.2 10.0 - 11/12 MH 20.0 [facility] CHEM PANEL Chloride Lvl 105 95 - 109 11/12 [facility] CHEM PANEL Glucose Lvl 94 70 - 99 11/12 [facility] CHEM PANEL BUN 24 7 - 22 11/12 [facility] CHEM PANEL Creatinine 1.19 0.50 - 11/12 MH Lvl 1.40 /2017 [facility] CHEM PANEL Sodium Lvl 136 135 - 145 11/12 [facility] CHEM PANEL Potassium 3.2 3.5 - 5.1 11/12 Lvl /2017 [facility] HEMATOLOGY INR 1.15 0.85 - 11/12 MH 1.17 /2017 [facility] HEMATOLOGY PT 14.5 12.0 - 11/12 MH 14.7 [place] HEMATOLOGY Monocytes 8.8 2.0 - 12.0 11/12 [facility] HEMATOLOGY Lymphocytes 0.7 1.0 - 5.5 11/12 MH # /2018 [facility] HEMATOLOGY Neutrophils 5.5 1.5 - 8.1 11/12 MH # /2017 [facility] HEMATOLOGY Basophils 0.2 0.0 - 1.0 11/12 /2017 [facility] HEMATOLOGY Lymphocytes 10.6 20.0 - 11/12 MH 40.0 [facility] HEMATOLOGY Segs 79.4 45.0 - 11/12 MH 75.0 [place] HEMATOLOGY Eosinophils 0.1 0.0 - 0.5 11/12 MH # /2018 [facility] HEMATOLOGY Monocytes # 0.6 0.0 - 0.8 11/12 [facility] HEMATOLOGY Eosinophils 1.0 0.0 - 4.0 11/12 [facility] HEMATOLOGY MPV 6.9 7.4 - 10.4 11/12 [facility] HEMATOLOGY MCHC 34.2 32.0 - 11/12 MH 36.0 [facility] HEMATOLOGY RDW 14.4 11.5 - 11/12 MH 14.5 /2017 [facility] HEMATOLOGY Platelet 177 133 - 450 11/12 [facility] HEMATOLOGY MCV 98.4 80.0 - 11/12 MH 94.0 [facility] HEMATOLOGY MCH 33.7 27.0 - 11/12 MH 31.0 [facility] HEMATOLOGY WBC 6.9 3.7 - 10.4 11/12 [facility] HEMATOLOGY RBC 2.64 4.70 - 11/12 MH 6.10 [facility] HEMATOLOGY Hgb 8.9 14.0 - 11/12 MH 18.0 [facility] HEMATOLOGY Hct 26.0 42.0 - 11/12 MH 54.0 [facility] CARDIAC Troponin-I <0.02 0.00 - 11/11 ENZYMES 0.40 [facility] ELECTROLYT Sodium Lvl 138 135 - 145 11/11 ES [facility] ELECTROLYT BUN 30 7 - 22 11/11 ES [facility] ELECTROLYT Creatinine 1.75 0.50 - 11/11 MH ES Lvl 1.40 [facility] ELECTROLYT Potassium 4.0 3.5 - 5.1 11/11 ES Lvl /2017 [facility] ELECTROLYT Glucose Lvl 129 70 - 99 11/11 ES [facility] ELECTROLYT Chloride Lvl 104 95 - 109 11/11 ES [facility] ELECTROLYT eGFR 36 11/11 Comment: [facility] eGFR is calculated using the CKD-EPI [...] 17.0 10.0 - 11/11 MH ES 20.0 [facility] ELECTROLYT Calcium Lvl 8.3 8.5 - 10.5 11/11 ES [facility] ELECTROLYT CO2 21 24 - 32 11/11 ES [facility] CARDIAC Troponin-I <0.02 0.00 - 11/11 ENZYMES 0.40 [facility] CHEM PANEL Lipase Lvl 86 73 - 393 11/11 [place] CHEM PANEL Alk Phos 106 39 - 136 11/11 [place] CHEM PANEL ALT 13 0 - 65 11/11 [place] CHEM PANEL AST 18 0 - 37 11/11 [place] CHEM PANEL Bili Total 0.4 0.2 - 1.3 11/11 [place] CHEM PANEL Bili Direct 0.2 0.0 - 0.3 11/11 [place] CHEM PANEL Albumin Lvl 3.1 3.5 - 5.0 11/11 [place] CHEM PANEL Total 6.6 6.4 - 8.4 11/11 Protein [facility] CHEM PANEL Bili 0.2 0.0 - 1.0 11/11 [place] CHEM PANEL A/G Ratio 0.9 0.7 - 1.6 11/11 [facility] CHEM PANEL Globulin 3.5 2.7 - 4.2 11/11 [facility] ELECTROLYT AGAP 13.0 10.0 - 11/11 ES 20.0 [facility] ELECTROLYT eGFR 26 11/11 Comment: [facility] eGFR is calculated using the CKD-EPI [...] Lvl 133 135 - 145 11/11 ES [facility] ELECTROLYT Calcium Lvl 8.0 8.5 - 10.5 11/11 [place] ELECTROLYT CO2 23 24 - 32 12 ES [place] ELECTROLYT Chloride Lvl 101 95 - 109 11/11 MH ES [place] ELECTROLYT Potassium 4.0 3.5 - 5.1 11/11 ES Lvl /2017 [place] ELECTROLYT Creatinine 2.28 0.50 - 11/11 ES Lvl 1.40 [place] ELECTROLYT BUN 28 7 - 22 11/11 ES [place] ELECTROLYT Glucose Lvl 129 70 - 99 11/11 MH ES [place] HEMATOLOGY INR 2.02 0.85 - 11/11 MH 1.17 /2017 [place] HEMATOLOGY PT 22.4 12.0 - 11/11 MH 14.7 [place] HEMATOLOGY PTT 44.2 22.9 - 11/11 MH 35.8 [place] HEMATOLOGY MCH 33.6 27.0 - 11/11 MH 31.0 [place] HEMATOLOGY Hgb 9.3 14.0 - 11/11 MH 18.0 [place] HEMATOLOGY RBC 2.76 4.70 - 11/11 MH 6.10 [facility] HEMATOLOGY MCV 97.1 80.0 - 11/11 94.0 [place] HEMATOLOGY Hct 26.8 42.0 - 11/11 MH 54.0 [facility] HEMATOLOGY Platelet 220 133 - 450 11/11 [facility] HEMATOLOGY RDW 14.3 11.5 - 11/11 MH 14.5 [facility] HEMATOLOGY MPV 7.2 7.4 - 10.4 11/11 [facility] HEMATOLOGY MCHC 34.6 32.0 - 11/11 MH 36.0 [facility] HEMATOLOGY WBC 7.6 3.7 - 10.4 11/11 [place] HEMATOLOGY Basophils 0.6 0.0 - 1.0 11/11 [place] HEMATOLOGY Eosinophils 1.2 0.0 - 4.0 11/11 [place] HEMATOLOGY Neutrophils 6.1 1.5 - 8.1 11/11 MH # /2017 [place] HEMATOLOGY Eosinophils 0.1 0.0 - 0.5 11/11 MH # /2017 [facility] HEMATOLOGY Monocytes 8.5 2.0 - 12.0 11/11 [place] HEMATOLOGY Lymphocytes 8.9 20.0 - 11/11 MH 40.0 [facility] HEMATOLOGY Monocytes # 0.6 0.0 - 0.8 11/11 [place] HEMATOLOGY Lymphocytes 0.7 1.0 - 5.5 11/11 MH # [place] HEMATOLOGY Segs 80.8 45.0 - 11/11 MH 75.0 [place] CHEM PANEL Magnesium 1.6 1.8 - 2.4 06/[address] [facility] CHEM PANEL Phosphorus 3.1 2.5 - 4.5 06/03 [place] ELECTROLYT AGAP 10.6 10.0 - 06/03 Sugar ES 20.0 [place] ELECTROLYT eGFR 58 06/03 Result Sugar Comment: The [facility] eGFR is calculated using the CKD-EPI formula. [...] Lvl 136 135 - 145 06/03 [place] ELECTROLYT Creatinine 1.19 0.50 - 06/03 [place] ES Lvl 1.40 /2017 [place] ELECTROLYT BUN 22 7 - 22 06/03 [place] ELECTROLYT CO2 29 24 - 32 06/03 Sugar ES [place] ELECTROLYT Chloride Lvl 100 95 - 109 06/03 [place] ELECTROLYT Potassium 3.6 3.5 - 5.1 06/03 [place] ES Lvl [place] ELECTROLYT Glucose Lvl 93 70 - 99 06/03 [place] ES [place] ELECTROLYT Calcium Lvl 8.2 8.5 - 10.5 06/03 Sug ar [place] HEMATOLOGY Basophils # 0.0 0.0 - 0.2 06/03 [place] HEMATOLOGY Neutrophils 3.9 1.5 - 8.1 06/03 [place] # /2017 [place] HEMATOLOGY Lymphocytes 12.1 20.0 - 06/03 [place] 40.0 /2017 [place] HEMATOLOGY Basophils 0.5 0.0 - 1.0 06/03 [place] HEMATOLOGY Eosinophils 2.3 0.0 - 4.0 [...] MCV 95.3 80.0 - 06/03 [place] 94.0 /2017 [place] HEMATOLOGY Hgb 9.9 14.0 - 06/03 [place] 18.0 [place] HEMATOLOGY WBC 5.2 3.7 - 10.4 06/03 [place] HEMATOLOGY RBC 3.13 4.70 - 06/03 [place] 6.10 [place] CHEM PANEL Phosphorus 4.3 2.5 - 4.5 06/02 [place] CHEM PANEL Magnesium 1.9 1.8 - 2.4 06/02 [place] Lvl [place] CHEM PANEL eGFR 49 06/02 [facility] Comment: The [place] eGFR is calculated [...] PANEL Potassium 3.2 3.5 - 5.1 06/02 [place] Lvl [place] CHEM PANEL Chloride Lvl 97 95 - 109 06/02 MH [place] CHEM PANEL Calcium Lvl 8.6 8.5 - 10.5 06/02 MH Sug [place] CHEM PANEL CO2 30 24 - 32 06/02 [place] CHEM PANEL Sodium Lvl 134 135 - 145 06/02 [place] CHEM PANEL BUN 25 7 - 22 06/02 MH [place] CHEM PANEL Creatinine 1.38 0.50 - 06/02 MH [place] Lvl 1.40 [place] CHEM PANEL Glucose Lvl 100 70 - 99 06/02 [place] CHEM PANEL Phosphorus 2.4 2.5 - 4.5 04/13 MH [place] CHEM PANEL eGFR 71 04/13 Result MH Comment: The [place] eGFR is [...] PANEL AST 12 0 - 37 04/13 [place] CHEM PANEL ALT 11 0 - 65 04/13 [place] CHEM PANEL Bili Total 0.4 0.2 - 1.3 04/13 [place] CHEM PANEL Alk Phos 69 39 - 136 04/13 [place] CHEM PANEL BUN 23 7 - 22 04/13 [place] CHEM PANEL Glucose Lvl 87 70 - 99 04/13 [place] CHEM PANEL Creatinine 1.01 0.50 - 04/13 [place] Lvl 1.40 [place] CHEM PANEL Sodium Lvl 142 135 - 145 04/13 [place] CHEM PANEL Chloride Lvl 109 95 - 109 04/13 [place] CHEM PANEL Potassium 3.4 3.5 - 5.1 04/13 [place] CHEM PANEL Total 5.6 6.4 - 8.4 04/13 [place] Protein [place] CHEM PANEL CO2 25 24 - [...] A/G Ratio 0.9 0.7 - 1.6 04/13 [place] CHEM PANEL Magnesium 1.7 1.8 - 2.4 04/13 [place] l [place] HEMATOLOGY WBC 3.4 3.7 - 10.4 04/13 [place] HEMATOLOGY RBC 2.38 4.70 - 04/13 [place] 6.10 [place] HEMATOLOGY Hgb 8.1 14.0 - 04/13 [place] 18.0 [place] HEMATOLOGY Hct 23.5 42.0 - 04/13 [place] 54.0 [place] HEMATOLOGY MCV 98.9 80.0 - 04/[address] [facility] HEMATOLOGY MCHC 34.5 32.0 - 04/13 Sugar 36.0 /2017 [facility] HEMATOLOGY MCH 34.1 27.0 - 04/[address] [facility] HEMATOLOGY RDW 16.7 11.5 - 04/[address] [facility] HEMATOLOGY Platelet 194 133 - 450 04/[address] [facility] HEMATOLOGY MPV 6.1 7.4 - 10.4 04/13 Sugar /2017 [facility] HEMATOLOGY Eosinophils 2.4 0.0 - 4.0 04/13 [place] r /2017 [facility] HEMATOLOGY Lymphocytes 20.3 20.0 - 04/[address] [facility] HEMATOLOGY Monocytes 11.0 2.0 - 12.0 04/[address] [facility] HEMATOLOGY Lymphocytes 0.7 1.0 - 5.5 04/13 [place] # /2017 [facility] HEMATOLOGY Segs 66.0 45.0 - 04/[address] [facility] HEMATOLOGY Eosinophils 0.1 0.0 - 0.5 04/13 [place] # [facility] HEMATOLOGY Segs-Bands # 2.3 1.5 - 8.1 04/[address] [facility] HEMATOLOGY Basophils 0.3 0.0 - 1.0 04/13 [facility] HEMATOLOGY Monocytes # 0.4 0.0 - 0.8 04/[address] [facility] HEMATOLOGY Basophils # 0.0 0.0 - 0.2 04/[address] [facility] ANEMIA Folate Lvl 17.1 >=3.0 04/12 [place] STUDY ng/mL /2017 [facility] ANEMIA Vitamin B12 852 254 - 1320 04/12 [place] STUDY Lvl /2017 [facility] CHEM PANEL VITAMIN B1 101.9 66.5 - 04/12 Result [place] (THIAMINE) 200.0 /2018 Comment: [facility] WHOLE BLOOD
This test was developed and its performance characteristi cs
determ ined by [facility]. It has not been cleared or
approv ed by the Food and Drug Administratio n.
Perfor med At: [facility] [place]
[address], [place] [id number]< br/>Sukhjinder Magana MD Ph:[phone] CHEM PANEL Magnesium 1.7 1.8 - 2.4 04/12 MH [place] Lvl /2017 [place] CHEM PANEL Phosphorus 3.2 2.5 - 4.5 04/12 [place] ELECTROLYT AGAP 12.0 10.0 - 04/12 [place] ES 20.0 [place] ELECTROLYT B/C Ratio [...] ELECTROLYT Total 6.2 6.4 - 8.4 04/12 [place] ES [place] ELECTROLYT Calcium Lvl 7.8 8.5 - 10.5 04/12 Sug ar ES [place] ELECTROLYT AST 14 0 - 37 04/12 [place] ES [place] ELECTROLYT ALT 12 0 - 65 04/12 [place] ELECTROLYT Chloride Lvl 103 95 - 109 04/12 [place] ELECTROLYT CO2 26 24 - 32 04/12 [place] ES 2018 [place] ELECTROLYT Sodium Lvl 137 135 - 145 04/12 [place] ES [place] ELECTROLYT Potassium 4.0 3.5 - 5.1 04/12 [place] ES Lvl /2017 [place] ELECTROLYT BUN 27 7 - 22 04/12 [place] ES [place] ELECTROLYT Glucose Lvl 108 70 - 99 04/12 [place] ES [place] ELECTROLYT Creatinine 1.21 0.50 - 04/12 [place] ES Lvl 1.40 /2017 [place] HEMATOLOGY Eosinophils 0.1 0.0 - 0.5 04/12 [place] # /2017 [place] HEMATOLOGY Monocytes # 0.2 0.0 - 0.8 04/12 [place] HEMATOLOGY Basophils # 0.0 0.0 - 0.2 04/12 [place] HEMATOLOGY Monocytes 3.8 2.0 - 12.0 04/12 [place] HEMATOLOGY Eosinophils 1.2 0.0 - 4.0 04/12 [place] HEMATOLOGY Basophils 0.2 0.0 - 1.0 04/12 [place] HEMATOLOGY Lymphocytes 0.5 1.0 - 5.5 04/12 [place] # [place] HEMATOLOGY Segs-Bands # 3.7 1.5 - 8.1 04/12 [place] HEMATOLOGY Lymphocytes 11.7 20.0 - 04/12 [place] 40.0 [place] HEMATOLOGY Segs 83.1 45.0 - 04/12 [place] 75.0 [place] HEMATOLOGY PTT 31.6 22.9 - 04/12 [place] 35.8 [place] HEMATOLOGY PT 14.0 12.0 - 04/12 [place] 14[employer]7 [place] HEMATOLOGY INR 1.08 0.85 - 04/12 [place] 1[employer]17 [place] HEMATOLOGY WBC 4.4 3.7 - 10.4 04/12 [place] HEMATOLOGY RBC 2.62 4.70 - 04/12 [place] 6[facility]10 [place] HEMATOLOGY MCV 99.1 80.0 - 04/12 [place] 94[employer]0 [place] HEMATOLOGY Hct 26.0 42.0 - 04/12 [place] 54.0 /2017 [place] HEMATOLOGY Hgb 9.0 14.0 - 04/12 [place] 18[employer]0 [place] HEMATOLOGY MCH 34.5 27.0 - 04/12 [facility] [place] 31[employer]0 [place] HEMATOLOGY MCHC 34.8 32.0 - 04/12 [facility] [place] 36.0 [place] HEMATOLOGY Platelet 198 133 - 450 04/12 [place] HEMATOLOGY RDW 17.1 11.5 - 04/12 [facility] [place] 14.5 [place] HEMATOLOGY MPV 6.5 7.4 - 10.4 04/12 [place] CARDIAC Troponin-I <0.02 0.00 - 04/12 [facility] [place] ENZYMES 0.40 [place] CARDIAC Total CK 55 12 - 191 04/12 [facility] [place] CARDIAC Troponin-I <0.02 0.00 - 04/12 [facility] [place] ENZYMES 0.40 [place] CARDIAC Total CK 65 12 - 191 04/12 [place] URINE AND UA <=1.0 0.1 - 1.0 04/11 [place] STOOL Urobilinogen mg/dL [place] URINE AND UA Hyal Cast 12 [...] Negative Negative 04/11 [place] STOOL mg/dL mg/dL /2017 [place] URINE AND UA Spec Grav 1.009 <=1.030 04/[address] [facility] CARDIAC CK MB 0.6 0.5 - 3.6 04/11 [place] [address] [address] [facility] CARDIAC Total CK 70 12 - 191 04/[address] [facility] CARDIAC Troponin-I <0.02 0.00 - 05 [facility] [place] [facility] [address] [facility] CARDIAC CK MB Index 0.9 0.0 - 2.5 04/11 [place] EN[place] CHEM PANEL eGFR 42 04/11 [facility] [place] Comment: [place] eGFR is [...] PANEL A/G Ratio 0.9 0.7 - 1.6 04/11 [place] CHEM PANEL Glucose Lvl 98 70 - 99 04/11 [place] 2018 [place] CHEM PANEL AGAP 12.9 10.0 - 05/ [facility] [place] 20.0 /2018 [place] CHEM PANEL Globulin 3.4 2.7 - 4.2 04/11 [facility] [place] /2018 [place] CHEM PANEL B/C Ratio 20 6 - 25 05/ [facility] [place] /2018 [place] CHEM PANEL BUN 31 7 - 22 / [facility] [place] 2018 [place] CHEM PANEL Creatinine 1.58 0.50 - 05/ [facility] [place] Lvl 1.40 /2017 [place] CHEM PANEL Potassium 3.9 3.5 - 5.1 05/25 [facility] [place] Lvl /2018 [place] CHEM PANEL Chloride Lvl 97 95 - 109 05/25 [facility] [place] /2017 [place] CHEM PANEL Sodium Lvl 133 135 - 145 05/25 [facility] [place] 2018 [place] CHEM PANEL AST 15 0 - 37 05/25 [facility] [place] /2018 [place] CHEM PANEL ALT 13 0 - 65 05/25 [facility] [place] CHEM PANEL Albumin Lvl 3.2 3.5 - 5.0 05/ [facility] [place] CHEM PANEL Bili Total 0.7 0.2 - 1.3 05/25 [facility] [place] /2017 [place] CHEM PANEL Alk Phos 82 39 - 136 05/25 [facility] [place] CHEM PANEL CO2 27 24 - 32 05/25 [facility] [place] 2018 [place] CHEM PANEL Total 6.6 6.4 - 8.4 05/25 [facility] [place] Protein [place] CHEM PANEL Calcium Lvl 8.1 8.5 - 10.5 05/25 [facility] [place] ENDOCRINOL Cortisol 11.7 05/25 [facility] [place] OGY /2017 [place] HEMATOLOGY PT 13.5 12.0 - 05 [place] 14.7 [place] HEMATOLOGY INR 1.03 0.85 - 0525 [place] 1.17 [place] HEMATOLOGY MPV 7.1 7.4 - 10.4 05/ MH [place] HEMATOLOGY Platelet 202 133 - 450 05/ MH [place] HEMATOLOGY RDW 17.8 11.5 - 05/25 [facility] [place] 14.5 /2017 [place] HEMATOLOGY Hct 25.4 42.0 - 05/ [place] 54.0 /2017 [place] HEMATOLOGY MCHC 34.4 32.0 - 05/ [place] 36.0 /2018 [place] HEMATOLOGY MCH 34.3 27.0 - 05/25 [place] 31.0 /2018 [place] HEMATOLOGY MCV 99.9 80.0 - 05/25 [place] 94.0 /2018 [place] HEMATOLOGY Hgb 8.7 14.0 - 05/25 [place] 18.0 /2018 [place] HEMATOLOGY RBC 2.55 4.70 - 05/25 [place] 6.10 /2018 [place] HEMATOLOGY WBC 6.6 3.7 - 10.4 05/25 [facility] [place] /2018 [place] HEMATOLOGY PTT 33.5 22.9 - 05/25 [facility] [place] 35.8 /2018 [place] HEMATOLOGY Basophils # 0.0 0.0 - 0.2 05/25 [facility] [place] HEMATOLOGY Monocytes # 0.7 0.0 - 0.8 05/ [facility] [place] /2018 [place] HEMATOLOGY Eosinophils 0.4 0.0 - 0.5 / [facility] [place] # /2018 [place] HEMATOLOGY Lymphocytes 0.7 1.0 - 5.5 04/11 [facility] [place] # /2017 [place] HEMATOLOGY Segs-Bands # 4.8 1.5 - 8.1 04/11 [place] /2017 [place] HEMATOLOGY Basophils 0.2 0.0 - 1.0 04/11 [place] /2018 [place] HEMATOLOGY Monocytes 10.1 2.0 - 12.0 04/11 [place] /2018 [place] HEMATOLOGY Lymphocytes 10.8 20.0 - 04/11 [facility] [place] 40.0 [place] HEMATOLOGY Segs 72.4 45.0 - 04/11 [facility] [place] 75.0 [place] HEMATOLOGY Eosinophils 6.5 0.0 - 4.0 04/11 [place] HEMATOLOGY PTT 47.0 22.9 - 09/05 [place] 35.8 [place] CHEM PANEL A/G Ratio 0.9 0.7 - 1.6 09/05 [place] CHEM PANEL Globulin 3.4 2.7 - 4.2 09/05 [place] CHEM PANEL B/C Ratio 25 6 - 25 09/05 [place] CHEM PANEL AGAP 12.9 10.0 - [...] PANEL AST 14 0 - 37 09/05 [place] CHEM PANEL Bili Total 0.6 0.2 - 1.3 09/05 [place] CHEM PANEL ALT 12 0 - 65 09/05 [place] CHEM PANEL Albumin Lvl 3.1 3.5 [...] 0.93 0.50 - 09/05 [place] Lvl 1.40 [place] CHEM PANEL Sodium Lvl 142 135 - 145 09/05 [place] CHEM PANEL Phosphorus 3.2 2.5 - 4.5 09/05 [place] CHEM PANEL Magnesium 1.6 1.8 - 2.4 09/05 [place] Lvl /2015 [place] HEMATOLOGY Basophils # 0.0 0.0 - 0.2 09/05 [place] HEMATOLOGY Monocytes 7.8 2.0 - 12.0 09/05 [place] HEMATOLOGY Lymphocytes 32.6 20.0 - 09/05 [place] 40.0 [place] HEMATOLOGY Eosinophils 0.2 0.0 - 0.5 09/05 [place] # /2015 [place] HEMATOLOGY Monocytes # 0.5 0.0 - 0.8 09/05 [place] HEMATOLOGY Lymphocytes 2.1 1.0 - 5.5 09/05 [place] # /2015 [place] HEMATOLOGY Segs 56.2 45.0 - 09/05 [place] 75.0 /2015 [place] HEMATOLOGY Segs-Bands # 3.5 1.5 - 8.1 09/05 [place] /2015 [place] HEMATOLOGY Basophils 0.6 0.0 - 1.0 09/05 [facility] [place] /2015 [place] HEMATOLOGY Eosinophils 2.8 0.0 - 4.0 09/05 [facility] [place] /2015 [place] HEMATOLOGY MCV 87.6 80.0 - 09/05 [facility] [place] 94.0 /2015 [place] HEMATOLOGY Hct 35.6 42.0 - 09/05 [facility] [place] 54.0 /2015 [place] HEMATOLOGY MPV 7.4 7.4 - 10.4 09/05 [place] /2015 [place] HEMATOLOGY RBC 4.06 4.70 - 09/05 [facility] [place] 6.10 [place] HEMATOLOGY Hgb 11.6 14.0 - 09/05 [facility] [place] 18.0 /2015 [place] HEMATOLOGY WBC 6.3 3.7 - 10.4 09/05 [facility] [place] /2015 [place] HEMATOLOGY RDW 16.6 11.5 - 09/05 [facility] [place] 14.5 /2015 [place] HEMATOLOGY Platelet 221 133 - 450 09/05 [place] /2015 [place] HEMATOLOGY MCHC 32.6 32.0 - 09/05 [facility] [place] 36.0 /2015 [place] HEMATOLOGY MCH 28.5 27.0 - 09/05 [facility] [place] 31.0 [place] PARATHYROI Ca Norm WB 1.19 1.05 [...] Sq Epi None Seen 09/05 [place] ST[place]OL [place] URINE AND UA RBC 1 0 - 2 09/05 [place] ST[place]OL /2015 [place] URINE AND UA WBC 1 0 - 5 09/05 [place] [facility]OL /2015 [place] URINE AND UA Mucus Few /LPF None Seen 09/05 [place] [facility] /LPF /2015 [place] URINE AND UA Bili Negative Negative 09/05 [place] [facility] *NA* /2016 [place] (09/04/16 8:38 PM) URINE AND UA Turbidity Clear Clear 09/05 [place] STOOL (09/04/16 8:38 PM) /2015 [place] URINE AND UA Spec Grav 1.009 <=1.030 09/05 [place] STOOL /2015 [place] URINE AND UA pH 6.0 5.0 - 8.0 09/05 [place] [facility]OOL /2015 [place] URINE AND UA Protein Negative Negative 09/05 [place] [facility] mg/dL mg/dL [place] URINE AND UA Glucose Negative Negative 09/05 [place] mg/dL mg/dL /2015 [place] URINE AND UA Ketones Negative Negative 09/05 [place] mg/dL mg/dL [place] URINE AND UA Color Light Yellow Yellow 09/05 [place] [facility] *NA* /2015 [facility] (09/04/16 8:38 PM) BACTERIAL MRSA by PCR Negative 09/05 [place] - SEROLOGY (09/04/16 7:56 PM) [place] HEM[place] Monocytes 8.1 2.0 - 12.0 09/04 [place] /2015 [place] HEMATOLOGY Eosinophils 1.8 0.0 - 4.0 09/04 [place] HEMATOLOGY Segs-Bands # 4.6 1.5 - 8.1 09/04 [place] /2015 [place] HEMATOLOGY Basophils 0.5 0.0 - 1.0 09/04 [place] /2015 [place] HEMATOLOGY Lymphocytes 26.9 20.0 - 09/04 [place] 40.0 /2015 [place] HEMATOLOGY Monocytes # 0.6 0.0 - 0.8 09/04 [place] /2015 [place] HEMATOLOGY Lymphocytes 2.0 1.0 - 5.5 09/04 [place] # /2015 [place] HEMATOLOGY Eosinophils 0.1 0.0 - 0.5 09/04 [place] # /2015 [place] HEMATOLOGY Basophils # 0.0 0.0 - 0.2 09/04 [place] /2015 [place] HEMATOLOGY Segs 62.7 45.0 - 09/04 [place] 75.0 /2015 [place] HEMATOLOGY PT 13.7 12.0 - 09/04 [place] 14.7 /2015 [place] HEMATOLOGY INR 1.03 0.85 - 09/04 [place] 1.17 /2015 [place] HEMATOLOGY PTT 33.9 22.9 - 09/04 [place] 35.8 /2015 [place] HEMATOLOGY MCHC 33.0 32.0 - 09/04 [place] 36.0 /2015 [place] HEMATOLOGY Hgb 12.1 14.0 - 09/04 [facility] [place] 18.0 [place] HEMATOLOGY Platelet 218 133 - 450 09/04 [facility] [place] /2015 [place] HEMATOLOGY RDW 16.6 11.5 - 09/04 [facility] [place] 14.5 /2015 [place] HEMATOLOGY RBC 4.21 4.70 - 09/04 [facility] [place] 6.10 [place] HEMATOLOGY WBC 7.4 3.7 - 10.4 09/04 [facility] [place] /2015 [place] HEMATOLOGY MCV 86.7 80.0 - 09/04 [facility] [place] 94.0 /2015 [place] HEMATOLOGY MCH 28.6 27.0 - 09/04 [facility] [place] 31.0 /2015 [place] HEMATOLOGY Hct 36.5 42.0 - 09/04 [facility] [place] 54.0 /2015 [facility] HEMATOLOGY MPV 7.8 7.4 - 10.4 09/04 [...] 3.5 - 5.1 09/04 [facility] [place] Lvl /2015 [place] CHEM PANEL Calcium Lvl 8.7 8.5 - 10.5 09/04 [facility] [place] CHEM PANEL AGAP 13.4 10.0 - 09/04 [facility] [place] 20.0 [place] CHEM PANEL Sodium Lvl 139 135 - 145 09/04 [place] CHEM PANEL Creatinine 0.96 0.50 - 09/04 [facility] [place] Lvl 1.40 [place] CHEM PANEL BUN 29 7 - 22 09/04 [place] CHEM PANEL Glucose Lvl 96 70 - 99 09/04 [place] ELECTROLYT AGAP 11.7 10.0 - 09/03 [facility] [place] ES 20.0 [place] ELECTROLYT eGFR 71 [...] Monocytes 6.6 2.0 - 12.0 09/03 [place] HEMATOLOGY Lymphocytes 20.5 20.0 - 10 [facility] [place] 40.0 /2015 [place] HEMATOLOGY Segs 70.3 45.0 - 10 [facility] [place] 75.0 /2015 [place] HEMATOLOGY Segs-Bands # [...] 16.2 11.5 - 09/03 [facility] [place] 14.5 /2015 [place] HEMATOLOGY MCH 28.6 27.0 - 09/03 [facility] [place] 31.0 /2015 [place] HEMATOLOGY MCV 86.7 80.0 - 09/03 [facility] [place] 94.0 /2015 [place] HEMATOLOGY Hct 37.0 42.0 - 09/03 [facility] [place] 54.0 /2015 [place] HEMATOLOGY Hgb 12.2 14.0 - 09/03 [facility] [place] 18.0 /2015 [place] HEMATOLOGY RBC 4.26 4.70 - 09/03 [facility] [place] 6.10 [place] HEMATOLOGY WBC 8.8 3.7 - 10.4 09/03 [facility] [place] /2016 [place] CARDIAC Total CK 90 12 - 191 09/02 [facility] [place] ENZYMES /2016 [place] CARDIAC Troponin-I 0.02 0.00 - 09/02 [facility] [place] ENZYMES 0.40 [place] CARDIAC CK MB 1.8 0.5 - 3.6 09/02 [facility] [place] ENZYMES /2016 [place] CARDIAC CK MB Index 2.0 0.0 - 2.5 09/02 [facility] [place] ENZYMES /2016 [place] CARDIAC Total CK 102 12 - 191 09/01 [facility] [place] ENZYMES /2016 [place] CARDIAC Troponin-I <0.02 0.00 - 09/01 [facility] [place] ENZYMES 0.40 [place] CARDIAC CK MB Index 2.4 0.0 - 2.5 09/01 [facility] [place] ENZYMES /2015 [place] CARDIAC CK MB 2.4 0.5 - 3.6 09/01 [facility] [place] ENZYMES /2015 [place] TOXICOLOGY Flecainide None 0.20 - 09/01 Result [facility] [place] Lvl Detected 1.00 Comment: [place] Detection Limit = 0.10
Perf ormed At: [facility] [place]
[id number], [place] [id number]<br/ >Sukhjinder Magana MD Ph:[phone] CARDIAC BNP 159 <=100 09/01 [facility] [place] EN[place] pg/mL /2015 [place] CARDIAC Total CK 158 12 - 191 09/01 [place] [facility] /2015 [place] CARDIAC Troponin-I <0.02 0.00 - 09/01 [facility] [place] ENZYMES 0.40 /2015 [place] CARDIAC CK MB 1.8 0.5 - 3.6 09/01 [place] CARDIAC CK MB Index 1.1 0.0 [...] Phos 92 39 - 136 09/01 [place] CHEM PANEL B/C Ratio 22 6 - 25 09/01 [place] /2015 [place] CHEM PANEL Bili Total 0.6 0.2 - 1.3 09/01 [place] /2015 [place] CHEM PANEL Globulin 4.1 2.7 - 4.2 09/01 [facility] [place] CHEM PANEL A/G Ratio 0.9 0.7 - 1.6 09/01 [place] HEMATOLOGY INR 0.95 0.85 - 09/01 [facility] [place] 1.17 /2015 [place] HEMATOLOGY PT 12.9 12.0 - 09/01 [facility] [place] 14.7 /2015 [place] HEMATOLOGY Hypochrom 1+ None Seen 09/01 [facility] [place] (09/01/16 12:42 PM) /2015 [place] HEMATOLOGY Tot Cell Ct 100 09/01 [facility] [place] /2015 [place] HEMATOLOGY Anisocyte 1+ None Seen 09/01 [place] *ABN* /2015 [place] (09/01/16 12:42 PM) HEMATOLOGY RBC Morph Normal 09/01 [place] (09/01/16 12:42 PM) [place] HEMATOLOGY Bands 6.0 0.0 - 11.0 09/01 [place] HEMATOLOGY Plt Morph Normal 09/01 [place] (09/01/16 12:42 PM) [place] CHEM PANEL Magnesium 1.7 1.8 - 2.4 10/11 [facility] [place] Lvl [place] CHEM PANEL eGFR 77 10/11 Result MH Comment: The [facility] eGFR is calculated using the CKD-EPI formula. [...] Lvl 136 135 - 145 10/11 [facility] [place] CHEM PANEL Potassium 4.2 3.5 - [...] 0.50 - 10/11 [facility] [place] Lvl 1.40 [place] CHEM PANEL BUN 41 7 - 22 10/11 [facility] [place] ELECTROLYT AGAP 11.8 10.0 - 10/10 [facility] [place] ES 20.0 [place] ELECTROLYT eGFR 79 10/10 Result [place] Comment: [place] eGFR is calculated [...] Glucose Lvl 103 70 - 99 10/10 [place] ELECTROLYT BUN 44 7 - 22 10/10 [place] ELECTROLYT Sodium Lvl 139 135 - 145 10/10 [place] ELECTROLYT Creatinine 0.94 0.50 - 10/10 [place] Lvl 1.40 [place] ELECTROLYT Potassium 3.8 3.5 - 5.1 10/10 [place] Lvl [place] ELECTROLYT Chloride Lvl 106 95 - 109 10/10 [place] CHEM PANEL Magnesium 1.5 1.8 - 2.4 10/08 [place] Lvl [place] CHEM PANEL eGFR 75 10/08 Result Comment: [place] eGFR is calculated [...] 35 7 - 22 10/08 [place] /2014 [facility] CHEM PANEL Creatinine 0.98 0.50 - 10/08 [place] Lvl 1.40 /2014 [facility] HEMATOLOGY Lymphocytes 27.6 20.0 - 10/08 [place] 40.0 /2014 [place] HEMATOLOGY Monocytes 8.4 2.0 - 12.0 10/08 [place] HEMATOLOGY Basophils 0.2 0.0 - 1.0 10/08 [place] HEMATOLOGY Eosinophils 1.4 0.0 - 4.0 10/08 [place] /2014 [facility] HEMATOLOGY Lymphocytes 2.2 1.0 - 5.5 10/08 [place] # /2014 [place] HEMATOLOGY Eosinophils 0.1 0.0 - 0.5 10/08 [place] # /2014 [facility] HEMATOLOGY Segs-Bands # 5.1 1.5 - 8.1 10/08 [place] /2014 [place] HEMATOLOGY Monocytes # 0.7 0.0 - 0.8 10/08 [place] /2014 [place] HEMATOLOGY Basophils # 0.0 0.0 - 0.2 10/08 [place] /2014 [place] HEMATOLOGY Segs 62.4 45.0 - 10/08 [place] 75.0 [place] HEMATOLOGY Plt Morph Normal 10/08 [place] (10/08/15 5:43 AM) [place] HEMATOLOGY MPV 7.6 7.4 - 10.4 10/08 [place] HEMATOLOGY Platelet 233 133 - 450 10/[address] [facility] HEMATOLOGY Hgb 9.2 14.0 - 10/[address] [facility] HEMATOLOGY RBC 2.98 4.70 - 10/[address] [facility] HEMATOLOGY WBC 8.1 3.7 - 10.4 10/08 [place] /2014 [facility] HEMATOLOGY RDW 14.5 11.5 - 10/08 [place] 14.5 [place] HEMATOLOGY MCHC 32.7 32.0 - 11 [facility] [place] 36.0 /2015 [place] HEMATOLOGY MCH 31.0 27.0 - 10/08 [facility] [place] 31.0 /2015 [place] HEMATOLOGY MCV 94.6 80.0 - 11 [facility] [place] 94.0 /2015 [place] HEMATOLOGY Hct 28.2 42.0 - 10/08 [facility] [place] 54.0 /2015 [place] CHEM PANEL Phosphorus 3.5 2.5 - 4.5 10/07 [facility] [place] /2015 [place] CHEM PANEL Magnesium 1.3 1.8 - 2.4 11 [facility] [place] Lvl /2014 [place] ELECTROLYT AGAP 11.8 10.0 - 10/07 [facility] [place] ES 20.0 /2014 [place] ELECTROLYT Chloride Lvl 107 95 - 109 10/07 [facility] [place] ES /2014 [place] ELECTROLYT Calcium Lvl 8.2 8.5 - 10.5 10/07 [facility] [place] ES /2014 [place] ELECTROLYT CO2 29 24 - 32 10/07 [facility] [place] ES /2014 [place] ELECTROLYT B/C Ratio 23 6 - 25 10/07 [facility] [place] ES /2014 [place] ELECTROLYT Sodium Lvl 144 135 - 145 10/07 [facility] [place] ES /2015 [place] ELECTROLYT Glucose Lvl 120 70 - 99 10/07 [facility] [place] ES /2014 [place] ELECTROLYT Potassium 3.8 3.5 - 5.1 10/07 [facility] [place] ES Lvl /2014 [place] ELECTROLYT AST 15 0 - 37 10/07 [facility] [place] ES /2014 [place] ELECTROLYT Alk Phos 80 39 - 136 10/07 [facility] [place] ES /2015 [place] ELECTROLYT Bili Total 0.8 0.2 - 1.3 10/07 [facility] [place] ES /2015 [place] ELECTROLYT Total 6.2 6.4 - 8.4 10/07 [facility] [place] ES [place] ELECTROLYT A/G Ratio 0.8 0.7 - 1.6 10/07 [facility] [place] ES /2015 [place] ELECTROLYT ALT 13 0 - 65 10/07 [facility] [place] ES /2015 [place] ELECTROLYT Globulin 3.4 2.0 - 4.0 10/07 [facility] [place] ES /2015 [place] ELECTROLYT Albumin Lvl 2.8 3.5 - 5.0 10/07 [facility] [place] ES /2014 [place] HEMATOLOGY Lymphocytes 11.7 20.0 - 11 [facility] [place] 40.0 /2015 [place] HEMATOLOGY Monocytes 6.1 2.0 - 12.0 10/07 [facility] [place] /2015 [place] HEMATOLOGY Eosinophils 0.0 0.0 - 4.0 11/20 [facility] [place] /2014 [place] HEMATOLOGY Basophils 0.3 0.0 - 1.0 10/07 [facility] [place] /2015 [place] HEMATOLOGY Segs-Bands # 9.2 1.5 - 8.1 10/07 [facility] [place] /2014 [place] HEMATOLOGY Lymphocytes [...] [place] 75.0 /2014 [place] HEMATOLOGY RDW 14.0 11. - 10/07 [facility] [place] 14.5 [place] HEMATOLOGY Platelet 288 133 - 450 [...] 3.62 4.70 - 10/07 [facility] [place] 6.10 /2014 [place] HEMATOLOGY MCV 96.0 80.0 - 10/07 [facility] [place] 94.0 /2014 [place] HEMATOLOGY Hct 34.8 42.0 - 10/07 [facility] [place] 54.0 /2014 [place] HEMATOLOGY MCHC 32.1 32.0 - 10/06 [facility] [place] 36.0 /2014 [place] HEMATOLOGY RDW 14.4 11.5 - 10/06 [facility] [place] 14.5 [place] HEMATOLOGY Platelet 284 133 - 450 10/06 [facility] [place] /2014 [place] HEMATOLOGY MPV 7.7 7.4 - 10.4 10/06 [facility] [place] /2014 [place] HEMATOLOGY Hgb 10.2 14.0 - 10/06 [facility] [place] 18.0 /2014 [place] HEMATOLOGY MCV 95.5 80.0 - 10/06 [facility] [place] 94.0 /2014 [place] HEMATOLOGY RBC 3.33 4.70 - 11 [facility] [place] 6.10 /2014 [place] HEMATOLOGY Hct 31.8 42.0 - 10/06 [place] 54.0 /2014 [place] HEMATOLOGY MCH 30.7 [...] Spec Grav 1.010 <=1.030 10/06 [place] STOOL /2014 [place] URINE AND UA pH 7.5 5.0 - 8.0 10/06 [place] STOOL /2014 [place] URINE AND UA Turbidity Clear Clear 10/06 [place] STOOL (10/05/15 9:01 PM) /2014 [place] URINE AND UA Color Yellow Yellow 10/06 [place] [facility]OL *NA* /2014 [place] (10/05/15 9:01 PM) CARDIAC CK MB Index 1.4 0.0 - 2.5 10/[address] [facility] CARDIAC CK MB 0.6 0.5 - 3.6 10/06 [place] CARDIAC Troponin-I <0.02 0.00 - 10/06 [place] ENZYMES 0.40 /2014 [facility] CARDIAC Total CK 43 12 - 191 10/06 [place] CHEM PANEL Lipase Lvl 68 73 - 393 10/06 [place] CHEM PANEL B/C Ratio 18 6 - 25 10/06 [place] CHEM PANEL A/G Ratio 0.9 0.7 - 1.6 10/06 [place] CHEM PANEL Globulin 3.6 2.0 - 4.0 10/06 [place] CHEM PANEL Total 7.0 6.4 - 8.4 10/06 [place] Protein [place] CHEM PANEL Albumin Lvl 3.4 [...] /2014 [place] HEMATOLOGY PTT 27.8 22.9 - 11 [place] 35.8 /2015 [place] CHEM PANEL eGFR 65 06/17 Result Comment: The [facility] eGFR is calculated using the CKD-EPI formula. [...] Sodium Lvl 140 135 - 145 06/17 [place] CHEM PANEL Creatinine 1.1 0.5 - 1.4 06/17 [place] CHEM PANEL Chloride Lvl 108 95 - 109 06/17 [place] CHEM PANEL Potassium 3.6 3.5 - 5.1 06/17 [place] CHEM PANEL CO2 23 24 - 32 06/17 [place] CHEM PANEL BUN 12 7 - 22 06/17 [place] CHEM PANEL Glucose Lvl 111 70 - 99 06/17 [place] CHEM PANEL Calcium Lvl 8.0 8.5 - 10.5 06/17 [place] CHEM PANEL AGAP 12.6 10.0 - 06/17 [place] 20.0 /2015 [place] HEMATOLOGY Segs-Bands # 6.2 1.5 - 8.1 06/17 [place] /2014 [place] HEMATOLOGY Eosinophils 4.8 0.0 - 4.0 06/17 [place] /2014 [place] HEMATOLOGY Basophils 0.3 0.0 - 1.0 06/17 [place] HEMATOLOGY Lymphocytes 2.0 1.0 - 5.5 06/17 [place] # /2014 [place] HEMATOLOGY Eosinophils 0.4 0.0 - 0.5 06/17 [place] # /2014 [place] HEMATOLOGY Monocytes # 0.6 0.0 - 0.8 06/17 [place] /2014 [place] HEMATOLOGY Basophils # 0.0 0.0 - 0.2 06/17 MH [place] /2014 [place] HEMATOLOGY Lymphocytes 21.3 20.0 - 06/17 [place] 40.0 /2014 [place] HEMATOLOGY Monocytes 6.7 2.0 - 12.0 06/17 [place] /2014 [place] HEMATOLOGY Segs 66.9 45.0 - 06/17 [place] 75.0 /2014 [place] HEMATOLOGY MPV 8.0 7.4 - 10.4 06/17 [place] /2014 [place] HEMATOLOGY RDW 18.3 11.5 - 06/17 [place] 14.5 /2014 [place] HEMATOLOGY Platelet 259 133 - 450 06/17 [place] HEMATOLOGY MCHC 34.0 32.0 - 06/17 [place] 36.0 /2014 [place] HEMATOLOGY RBC 3.18 4.70 - 06/17 [place] 6.10 /2014 [place] HEMATOLOGY WBC 9.3 3.7 - 10.4 06/17 [place] /2014 [place] HEMATOLOGY MCH 30.6 27.0 - 06/17 [place] 31.0 /2014 [place] HEMATOLOGY Hct 28.6 42.0 - 06/17 [place] 54.0 /2014 [place] HEMATOLOGY Hgb 9.7 14.0 - 06/17 [place] 18.0 /2014 [place] HEMATOLOGY MCV 90.0 80.0 - 06/17 [place] 94.0 /2014 [place] CHEM PANEL BUN 10 7 - 22 06/16 [facility] [place] CHEM PANEL Potassium 3.1 3.5 - 5.1 06/16 [place] Lvl /2014 [place] CHEM PANEL Chloride Lvl 106 95 - 109 06/16 [facility] [place] /2014 [place] CHEM PANEL Creatinine 1.2 0.5 - 1.4 06/16 [facility] [place] Lvl /2014 [place] CHEM PANEL Sodium Lvl 140 135 - 145 06/16 [facility] [place] CHEM PANEL Calcium Lvl 7.9 8.5 - 10.5 06/16 [facility] [place] /2014 [place] CHEM PANEL CO2 25 24 - 32 / [facility] [place] CHEM PANEL Glucose Lvl 109 70 - 99 06/16 [facility] [place] CHEM PANEL eGFR 59 06/16 Result [facility] [place] /2014 Comment: The [place] eGFR is [...] BMI. CHEM PANEL AGAP 12.1 10.0 - 07 [facility] [place] 20.0 /2014 [place] HEMATOLOGY Basophils # 0.0 0.0 - 0.2 07/30 [facility] [place] /2014 [place] HEMATOLOGY Monocytes # 0.7 0.0 - 0.8 07/30 [facility] [place] /2014 [place] HEMATOLOGY Eosinophils 0.8 0.0 - 0.5 07/30 [facility] [place] # /2014 [place] HEMATOLOGY Basophils 0.3 0.0 - 1.0 07/30 [facility] [place] HEMATOLOGY Segs-Bands # 9.1 1.5 - 8.1 07/30 [facility] [place] /2014 [place] HEMATOLOGY Lymphocytes 2.0 1.0 - 5.5 07/30 [facility] [place] # /2014 [place] HEMATOLOGY Eosinophils 6.4 0.0 - 4.0 07/30 [facility] [place] /2014 [place] HEMATOLOGY Monocytes 5.2 2.0 - 12.0 /30 [facility] [place] /2015 [place] HEMATOLOGY Segs 72.0 45.0 - 30 [facility] [place] 75.0 /2015 [place] HEMATOLOGY Lymphocytes 16.1 20.0 - 30 [facility] [place] 40.0 [place] HEMATOLOGY Plt Morph Normal 06/16 [facility] [place] (06/16/15 6:29 AM) /2014 [place] HEMATOLOGY MPV 7.9 7.4 - 10.4 30 [facility] [place] /2014 [place] HEMATOLOGY Platelet 122 133 - 450 30 [facility] [place] /2014 [place] HEMATOLOGY RBC 3.25 4.70 - 06/16 [facility] [place] 6.10 [place] HEMATOLOGY WBC 12.6 3.7 - 10.4 07/30 [facility] [place] /2014 [place] HEMATOLOGY RDW 18.0 11.5 - 06/16 [facility] [place] 14.5 /2014 [place] HEMATOLOGY Hgb 9.4 14.0 - 06/16 [facility] [place] 18.0 [place] HEMATOLOGY MCHC 32.2 32.0 - 06/16 [facility] [place] 36.0 /2014 [place] HEMATOLOGY MCH 28.9 27.0 - 06/16 [facility] [place] 31.0 [place] HEMATOLOGY MCV 89.9 80.0 - 06/16 [facility] [place] 94.0 [place] HEMATOLOGY Hct 29.2 42.0 - 06/16 [facility] [place] 54.0 /2014 [place] CHEM PANEL Bili 0.2 0.0 - 1.0 06/14 [facility] [place] Indirect [place] CHEM PANEL Bili Direct 0.1 0.0 - 0.3 06/14 [facility] [place] CHEM PANEL Bili Total 0.3 0.2 - 1.3 06/14 [place] CHEM PANEL Alk Phos 75 39 - 136 06/14 [place] CHEM PANEL AST 24 0 - 37 06/14 [facility] [place] CHEM PANEL A/G Ratio 0.6 0.7 - 1.6 06/14 [place] CHEM PANEL Globulin 3.4 2.0 - 4.0 06/14 [facility] [place] CHEM PANEL Albumin Lvl 2.1 3.5 - 5.0 06/14 [place] CHEM PANEL ALT 14 0 - 65 06/14 [facility] [place] CHEM PANEL Total 5.5 6.4 - 8.4 06/14 [facility] [place] CHEM PANEL eGFR 53 06/14 Result Comment: The [place] eGFR is calculated [...] PANEL CO2 26 24 - 32 06/14 [place] CHEM PANEL Chloride Lvl 103 95 - 109 06/14 [place] CHEM PANEL Calcium Lvl 8.2 8.5 - 10.5 06/14 [place] CHEM PANEL AGAP 12.7 10.0 - 06/14 [place] 20.0 [place] CHEM PANEL Creatinine 1.3 0.5 - 1.4 06/14 [place] CHEM PANEL Potassium 3.7 3.5 - 5.1 06/14 [place] L[facility] CHEM PANEL Sodium Lvl 138 135 - 145 06/14 [place] CHEM PANEL BUN 14 7 - 22 06/14 [place] CHEM PANEL Glucose Lvl 94 70 - 99 06/14 [facility] HEMATOLOGY MCHC 33.0 32.0 - 06/14 [place] 36.0 [place] HEMATOLOGY Platelet 287 133 - 450 06/14 [facility] HEMATOLOGY MPV 7.1 7.4 - 10.4 06/14 [place] HEMATOLOGY RDW 18.4 11.5 - 06/14 [place] 14.5 [facility] HEMATOLOGY MCH 30.2 27.0 - 06/14 [place] 31.0 [facility] HEMATOLOGY Hct 28.3 42.0 - 06/14 [place] 54.0 /2014 [place] HEMATOLOGY MCV 91.3 80.0 - 06/14 [place] 94.0 [place] HEMATOLOGY WBC 7.4 3.7 - 10.4 06/14 [place] HEMATOLOGY RBC 3.09 4.70 - 06/14 [place] 6.10 [facility] HEMATOLOGY Hgb 9.3 14.0 - 06/14 [place] 18.0 [place] HEMATOLOGY Monocytes # 0.6 0.0 - 0.8 06/14 [place] HEMATOLOGY Eosinophils 1.0 0.0 - 0.5 06/14 [place] [facility] HEMATOLOGY Segs-Bands # 3.9 1.5 - 8.1 06/14 [place] HEMATOLOGY Lymphocytes 1.8 1.0 - 5.5 06/14 [place] # /2014 [place] HEMATOLOGY Basophils # 0.0 0.0 - 0.2 06/14 [place] /2014 [place] HEMATOLOGY Monocytes 8.4 2.0 - 12.0 06/14 [place] /2014 [place] HEMATOLOGY Eosinophils 13.7 0.0 - 4.0 06/14 [place] /2014 [facility] HEMATOLOGY Segs 53.2 45.0 - 06/[address] [facility] HEMATOLOGY Lymphocytes 24.5 20.0 - 06/[address] [facility] HEMATOLOGY Basophils 0.2 0.0 - 1.0 06/14 [place] /2014 [facility] IMMUNOLOGY Prealbumin 10.3 18.0 - 06/[address] [facility] IMMUNOLOGY C-REACTIVE 35.6 <=2.9 mg/L 06/14 [place] PROTEIN /2014 [facility] MOLECULAR C difficile Negative Negative 06/12 [place] DIAGNOSTIC DNA (06/12/15 2:09 PM) /2014 [place] CARDIAC Troponin-I <0.02 0.00 - 06/[address] [place] [address] [facility] ENDOCRINOL Cortisol 12.4 06/12 [place] OGY /2014 [facility] CHEM PANEL Lactic Acid 0.7 0.5 - 2.2 06/12 [place] ELECTROLYT AGAP 9.3 10.0 - 05/31 [place] ES 20.0 [place] ELECTROLYT eGFR 83 05/31 Result [place] [facility] Comment: The [facility] eGFR is calculated using the CKD-EPI formula. [...] [place] ELECTROLYT Creatinine 0.9 0.5 - 1.4 05/31 [place] Lvl /2014 [place] ELECTROLYT BUN 8 7 - 22 05/31 [place] ELECTROLYT Potassium 3.3 3.5 - 5.1 05/31 [place] [facility] Lvl [facility] ELECTROLYT Sodium Lvl 139 135 - 145 05/31 [place] ELECTROLYT CO2 27 24 - 32 05/31 [place] ELECTROLYT Calcium Lvl 8.7 8.5 - 10.5 05/31 [place] HEMATOLOGY Monocytes 9.2 2.0 - 12.0 05/31 [place] HEMATOLOGY Eosinophils 7.4 0.0 - 4.0 05/31 [place] HEMATOLOGY Basophils # 0.1 0.0 - 0.2 05/31 [place] HEMATOLOGY Eosinophils 0.7 0.0 - 0.5 05/31 [place] # [place] HEMATOLOGY Basophils 0.8 0.0 - 1.0 05/31 [place] HEMATOLOGY Segs-Bands # 5.9 1.5 - 8.1 05/31 [place] /2014 [place] HEMATOLOGY Monocytes # 0.9 0.0 - 0.8 05/31 [place] HEMATOLOGY Lymphocytes 2.3 1.0 - 5.5 05/31 [place] # /2014 [place] HEMATOLOGY Lymphocytes 23.3 20.0 - 05/31 [place] 40.0 /2014 [place] HEMATOLOGY Segs 59.3 45.0 - 05/31 [place] 75.0 /2014 [place] HEMATOLOGY MCHC 33.4 32.0 - 05/31 [place] 36.0 /2014 [place] HEMATOLOGY MCH 29.9 27.0 - 05/31 [place] 31.0 /2014 [place] HEMATOLOGY MCV 89.7 80.0 - 05/31 [place] 94.0 /2014 [place] HEMATOLOGY MPV 7.9 7.4 - 10.4 05/31 [place] /2014 [place] HEMATOLOGY Platelet 342 133 - 450 05/31 [place] HEMATOLOGY RDW 17.2 11.5 - 05/31 [place] 14.5 /2014 [place] HEMATOLOGY WBC 10.0 3.7 - 10.4 05/31 [place] /2014 [place] HEMATOLOGY RBC 3.45 4.70 - 05/31 [place] 6.10 /2014 [place] HEMATOLOGY Hct 30.9 42.0 - 05/31 [place] 54.0 /2014 [place] HEMATOLOGY Hgb 10.3 14.0 - 05/31 [place] 18.0 /2014 [place] CHEM PANEL Magnesium 0.9 1.8 - 2.4 05/30 Result [place] Lvl /2014 Comment: [facility] Critical Result(s) called to JOLLY HOPKINS RN at 05/30/2015 07:03_ by_[email or web address]. Read back [place] ELECTROLYT AGAP 12.7 10.0 - 05/30 [place] ES 20.0 [place] ELECTROLYT eGFR 73 05/30 Result [place] ES Comment: The [facility] eGFR is calculated using the CKD-EPI formula. [...] ELECTROLYT CO2 25 24 - 32 05/30 [place] ES [place] ELECTROLYT Calcium Lvl 8.8 8.5 - 10.5 05/30 [place] ES /2014 [place] ELECTROLYT Chloride Lvl 107 95 - 109 05/30 [place] /2014 [place] ELECTROLYT Glucose Lvl 103 70 - 99 05/30 [place] ES /2014 [place] ELECTROLYT BUN 9 7 - 22 05/30 [place] ES /2014 [place] ELECTROLYT Creatinine 1.0 0.5 - 1.4 05/30 [place] ES Lvl /2014 [place] ELECTROLYT Potassium 3.7 3.5 - 5.1 / [place] ES Lvl /2015 [place] ELECTROLYT Sodium Lvl 141 135 - 145 07/ [place] ES /2014 [place] HEMATOLOGY RDW 17.2 11.5 - 07/ MH [place] 14.5 /2014 [place] HEMATOLOGY Platelet 348 133 - 450 07/13 MH [place] /2014 [place] HEMATOLOGY MPV 8.0 7.4 - 10.4 07/13 MH [place] /2014 [place] HEMATOLOGY Hct 30.2 42.0 - 07/ [place] 54.0 /2014 [place] HEMATOLOGY MCV 89.6 80.0 - 07/ [place] 94.0 /2014 [place] HEMATOLOGY MCH 29.4 27.0 - 07/ [place] 31.0 /2014 [place] HEMATOLOGY MCHC 32.8 32.0 - 07/ [place] 36.0 /2014 [place] HEMATOLOGY WBC 10.0 3.7 - 10.4 07/ MH [place] /2014 [place] HEMATOLOGY RBC 3.37 4.70 - 07 [place] 6.10 /2014 [place] HEMATOLOGY Hgb 9.9 14.0 - 07 [place] 18.0 /2014 [place] HEMATOLOGY INR 1.06 0.85 - 07 [place] 1.17 /2014 [place] HEMATOLOGY PTT 35.7 22.9 - 07/ MH [place] 35.8 /2014 [place] HEMATOLOGY PT 13.8 12.0 - 07/ [place] 14.7 /2014 [place] HEMATOLOGY Eosinophils 0.6 0.0 - 0.5 / MH [place] # /2014 [place] HEMATOLOGY Basophils # 0.1 0.0 - 0.2 07/ MH [place] /2014 [place] HEMATOLOGY Monocytes # 0.9 0.0 - 0.8 / [place] /2014 [place] HEMATOLOGY Basophils 0.8 0.0 - 1.0 07/ MH [place] /2014 [place] HEMATOLOGY Segs-Bands # 6.2 1.5 - 8.1 07/ MH [place] /2014 [place] HEMATOLOGY Lymphocytes 2.3 1.0 - 5.5 07/ MH [place] # /2014 [place] HEMATOLOGY Segs 61.8 45.0 - 07/13 MH [place] 75.0 /2014 [place] HEMATOLOGY Lymphocytes 22.6 20.0 - 07/13 [place] 40.0 /2015 [place] HEMATOLOGY Monocytes 8.6 2.0 - 12.0 07/13 MH [place] /2014 [place] HEMATOLOGY Eosinophils 6.2 0.0 - 4.0 07/13 MH [place] CHEM PANEL eGFR 83 07 Result MH Comment: The [facility] eGFR is calculated using the CKD-EPI formula. [...] PANEL Calcium Lvl 8.6 8.5 - 10.5 05/29 [place] CHEM PANEL Chloride Lvl 107 95 - 109 05/29 [place] CHEM PANEL CO2 24 24 - 32 05/29 [place] CHEM PANEL Glucose Lvl 102 70 - 99 05/29 [place] CHEM PANEL Creatinine 0.9 0.5 - 1.4 05/29 MH [place] CHEM PANEL Sodium Lvl 140 135 - 145 05/29 [place] CHEM PANEL BUN 10 7 - 22 05/29 [place] CHEM PANEL Potassium 3.3 3.5 - 5.1 05/29 MH [place] Lv [place] CHEM PANEL AGAP 12.3 10.0 - 07 MH [place] 20.0 /2014 [place] HEMATOLOGY RDW 17.2 11.5 - 07 MH [place] 14.5 [place] HEMATOLOGY MCHC 32.9 32.0 - 07/ MH [place] 36.0 /2014 [place] HEMATOLOGY MPV 7.7 7.4 - 10.4 / MH [place] HEMATOLOGY Platelet 346 133 - 450 05/29 MH [place] HEMATOLOGY Hct 30.7 42.0 - 05/29 MH [place] 54.0 /2014 [place] HEMATOLOGY Hgb 10.1 14.0 - 07 MH [place] 18.0 /2014 [place] HEMATOLOGY MCV 89.0 80.0 - 07/12 MH [place] 94.0 /2014 [place] HEMATOLOGY MCH 29.3 27.0 - 07/12 MH [place] 31.0 /2014 [place] HEMATOLOGY RBC 3.45 4.70 - 07/12 MH [place] 6.10 /2014 [place] HEMATOLOGY WBC 9.5 3.7 - 10.4 07/12 MH [place] /2015 [place] HEMATOLOGY INR 1.03 0.85 - 07/12 MH [place] 1.17 /2014 [place] HEMATOLOGY PTT 36.4 22.9 - 07/12 MH [place] 35.8 /2014 [place] HEMATOLOGY PT 13.5 12.0 - 07/12 MH [place] 14.7 /2014 [place] HEMATOLOGY Segs-Bands # 5.9 1.5 - 8.1 07/12 MH [place] ar /2014 [place] HEMATOLOGY Eosinophils 5.0 0.0 - 4.0 07/12 MH [place] /2014 [place] HEMATOLOGY Lymphocytes 2.2 1.0 - 5.5 07/ MH [place] # /2014 [place] HEMATOLOGY Basophils 0.4 0.0 - 1.0 07/12 MH [place] /2014 [place] HEMATOLOGY Eosinophils 0.5 0.0 - 0.5 07/ MH [place] # /2014 [place] HEMATOLOGY Monocytes # 0.8 0.0 - 0.8 07/12 MH [place] /2014 [place] HEMATOLOGY Basophils # 0.0 0.0 - 0.2 07/12 MH [place] /2015 [place] HEMATOLOGY Lymphocytes 23.6 20.0 - 07/ MH [place] 40.0 /2014 [place] HEMATOLOGY Segs 62.5 45.0 - 07/ MH [place] 75.0 /2014 [place] HEMATOLOGY Monocytes 8.5 2.0 - 12.0 07/12 MH [place] /2014 [place] HEMATOLOGY Plt Morph Normal /12 [place] (05/29/15 6:13 AM) /2014 [place] HEMATOLOGY INR 1.11 0.85 - 07/11 MH [place] 1. [place] HEMATOLOGY PTT 41.8 22.9 - 07/11 MH [place] 35.8 /2014 [place] HEMATOLOGY PT 14.4 12.0 - 07/11 MH [place] 14.7 /2014 [place] TOXICOLOGY Vanco Lvl 23.3 07/09 MH [place] /2015 [place] TOXICOLOGY Vanco Tr TND [id number] 07/08 MH [place] /2014 [place] TOXICOLOGY Vanco Tr 34.6 07/08 MH [place] /2015 [place] MOLECULAR C difficile Negative Negative 05/25 MH [place] DIAGNOSTIC DNA (05/24/15 10:46 PM) /2014 [place] CHEM PANEL A/G Ratio 0.5 0.7 - 1.6 07/07 MH [place] /2014 [place] CHEM PANEL Globulin 4.3 2.0 - 4.0 07/07 MH [place] /2014 [place] CHEM PANEL Bili 0.4 0.0 - 1.0 07/07 MH [place] Indirect /2014 [place] CHEM PANEL ALT 23 0 - 65 07/07 MH [place] /2014 [place] CHEM PANEL AST 26 0 - 37 07/07 MH [place] /2015 [place] CHEM PANEL Bili Direct 0.2 0.0 - 0.3 07/07 MH [place] /2014 [place] CHEM PANEL Alk Phos 121 39 - 136 07/07 MH [place] /2014 [place] CHEM PANEL Bili Total 0.6 0.2 - 1.3 07/07 MH [place] /2014 [place] CHEM PANEL Total 6.4 6.4 - 8.4 07/07 MH [place] Protein /2014 [place] CHEM PANEL Albumin Lvl 2.1 3.5 - 5.0 07/ MH [place] /2014 [place] IMMUNOLOGY Prealbumin 14.1 18.0 - 07/05 MH [place] 45.0 /2015 [place] TOXICOLOGY Vanco Tr TND [id number] 07/ MH [place] /2014 [place] TOXICOLOGY Vanco Tr 18.2 07/04 MH [place] /2014 [place] URINE AND Occult Bld Positive Negative 05/20 MH [place] STOOL Stl *ABN* /2014 [place] (05/20/15 11:23 AM) CHEM PANEL Albumin Lvl 2.0 3.5 - 5.0 07/ MH [place] /2014 [place] CHEM PANEL Bili Total 0.7 0.2 - 1.3 07/03 MH [place] /2014 [place] CHEM PANEL Alk Phos 143 39 - 136 07/03 MH [place] /2015 [place] CHEM PANEL AST 31 0 - 37 07/03 MH [place] /2015 [place] CHEM PANEL ALT 25 0 - 65 07/03 MH [place] /2015 [place] CHEM PANEL Total 6.3 6.4 - 8.4 07/03 MH [place] Protein /2015 [place] CHEM PANEL B/C Ratio 28 6 - 25 07/03 MH [place] /2015 [place] CHEM PANEL A/G Ratio 0.5 0.7 - 1.6 07/03 MH [place] /2014 [place] CHEM PANEL Globulin 4.3 2.0 - 4.0 07/03 MH [place] /2014 [facility] TOXICOLOGY Vanco Tr TND 1330 05/19 MH [place] /2014 [facility] TOXICOLOGY Vanco Tr 16.7 05/19 MH [place] /2014 [facility] BLOOD BANK Antibody Negative 05/19 [place] RESULTS Scrn (05/19/15 6:30 AM) /2014 [facility] BLOOD BANK ABO/Rh A POS 05/19 MH [place] RESULTS /2014 [facility] BLOOD BANK RBC product Product available 1 05/19 Resul t [place] RESULTS (05/19/15 6:25 AM) Comment: [facility] 05/19/2015 09:31 [id number]
CALLED TO Carlie JONES 05/19/2015 09:31 MJB CHEM PANEL Albumin Lvl 1.8 3.5 - 5.0 05/19 [place] CHEM PANEL ALT 24 0 - 65 05/19 MH [place] CHEM PANEL Globulin 3.8 2.0 - 4.0 / MH [place] CHEM PANEL A/G Ratio 0.5 0.7 - 1.6 / MH [place] CHEM PANEL AST 28 0 - 37 07/ MH [place] CHEM PANEL Alk Phos 127 39 - 136 / MH [place] CHEM PANEL Bili Total 0.5 0.2 - 1.3 / MH [place] CHEM PANEL Total 5.6 6.4 - 8.4 / MH [place] Protein [place] CHEM PANEL B/C Ratio 27 6 - 25 07/ MH [place] CHEM PANEL Bili Direct 0.2 0.0 - 0.3 / MH [place] CHEM PANEL B/C Ratio 26 6 - 25 07/ MH [place] CHEM PANEL Phosphorus 4.4 2.5 - 4.5 / MH [place] CHEM PANEL Magnesium 1.5 1.8 - 2.4 / MH [place] Lvl /2014 [place] TOXICOLOGY Digoxin Lvl 0.6 0.8 - 2.0 05/18 MH [place] CHEM PANEL Lactic Acid 2.2 0.5 - 2.2 05/17 MH [place] Lvl [facility] URINE AND UA Glucose Negative Negative 05/16 [place] STOOL mg/dL mg/dL /2014 [facility] URINE AND UA Bili Negative Negative 05/16 [place] STOOL *NA* /2014 [place] (05/16/15 6:27 PM) URINE AND UA Ketones Negative Negative 05/16 [place] STOOL mg/dL mg/dL [place] URINE AND UA Spec Grav 1.010 <=1.030 05/16 [place] STOOL [place] URINE AND UA Turbidity Clear Clear 05/16 [place] STOOL (05/16/15 6:27 PM) [place] URINE AND UA Protein Negative Negative 05/16 [place] STOOL mg/dL mg/dL [place] URINE AND UA pH 5.5 5.0 - 8.0 05/16 [place] STOOL [place] URINE AND UA Color Yellow Yellow 05/16 [place] STOOL *NA* /2014 [place] (05/16/15 6:27 PM) URINE AND UA Blood Negative Negative 05/16 [place] STOOL (05/16/15 6:27 PM) [place] URINE AND UA 0.2 0.1 [...] 05/16 [place] STOOL (05/16/15 6:27 PM) [place] URINE AND UA Renal Epi 0-2 /LPF None Seen 05/16 [place] STOOL /LPF /2014 [place] URINE AND UA Hyal Cast 11-20 0 - 2 05/16 [place] STOOL (05/16/15 6:27 PM) [place] CARDIAC Troponin-I <0.02 0.00 - 05/[address] [facility] CARDIAC Total CK 11 12 - 191 05/[address] [facility] CARDIAC CK MB <0.5 0.5 - 3.6 05/16 [place] ENZYMES /2014 [facility] CARDIAC CK MB Index <4.5 0.0 - 2.5 05/16 [place] ENZYMES [place] HEMATOLOGY Anisocyte 1+ None Seen 05/16 [...] PANEL CO2 23 24 - 32 04/27 [place] CHEM PANEL Potassium 4.0 3.5 - 5.1 04/27 [place] CHEM PANEL Chloride Lvl 100 95 - 109 04/27 [place] CHEM PANEL Calcium Lvl 8.2 8.5 - 10.5 04/27 [place] CHEM PANEL BUN 35 7 - 22 04/27 [place] CHEM PANEL Creatinine 1.2 0.5 - 1.4 04/27 [place] Lvl [place] CHEM PANEL Glucose Lvl 131 70 - 99 04/27 <sup>6</sup>I nterpretive [place] Data: Adult reference range values reflect the clinical guidelines
of the [place] [employer]. CHEM PANEL Sodium Lvl 132 135 - 145 06/10 MH [place] /2015 [place] CHEM PANEL AGAP 13.0 10.0 - 06/10 MH [place] 20.0 /2014 [place] HEMATOLOGY Basophils [...] HEMATOLOGY Monocytes # 1.3 0.0 - 0.8 /10 MH [place] /2015 [place] HEMATOLOGY Lymphocytes 20.2 20.0 - 06/10 MH [place] 40.0 /2014 [place] HEMATOLOGY Eosinophils 1.0 0.0 - 4.0 06/10 MH [place] /2015 [place] HEMATOLOGY Segs 61.6 45.0 - 06/10 MH [place] 75.0 /2014 [place] HEMATOLOGY MCHC 32.6 32.0 - 06/10 MH [place] 36.0 /2015 [place] HEMATOLOGY Platelet 203 133 - 450 /10 MH [place] /2015 [place] HEMATOLOGY MCH 29.4 27.0 - 06/10 MH [place] 31.0 /2015 [place] HEMATOLOGY WBC 7.5 3.7 - 10.4 /10 MH [place] /2015 [place] HEMATOLOGY RBC 2.87 4.70 - 06/10 MH [place] 6.10 /2015 [place] HEMATOLOGY Hgb 8.4 14.0 - 06/10 MH [place] 18.0 /2015 [place] HEMATOLOGY MCV 90.1 80.0 - /10 MH [place] 94.0 /2015 [place] HEMATOLOGY Hct 25.9 42.0 - 06/10 MH [place] 54.0 /2015 [place] HEMATOLOGY RDW 15.6 11.5 - 06/10 MH [place] 14.5 /2015 [place] HEMATOLOGY MPV 8.4 7.4 - 10.4 /10 MH [place] /2015 [place] CHEM PANEL eGFR 59 06/ <sup>4</sup>R MH [place] /2014 esult [place] [...] 8.4 8.5 - 10.5 04/24 [place] CHEM PANEL CO2 24 24 - 32 04/24 [place] /2014 [place] CHEM PANEL Sodium Lvl 129 135 - 145 04/[address] [facility] CHEM PANEL Chloride Lvl 96 95 - 109 04/24 [place] CHEM PANEL Potassium 5.2 3.5 - 5.1 04/24 [place] Lvl /2014 [facility] CHEM PANEL Glucose Lvl 350 70 - 99 04/24 <sup>7</sup>I [place] /[address] [facility] Data: Adult reference range values reflect the clinical guidelines
of the [place] [employer]. CHEM PANEL Creatinine 1.2 0.5 - 1.4 04/24 [place] Lvl /2014 [facility] CHEM PANEL BUN 35 7 - 22 04/24 [place] /2014 [facility] CHEM PANEL AGAP 14.2 10.0 - /07 [place] 20.0 /2015 [facility] BLOOD BANK Antibody Negative 04/21 [place] RESULTS Scrn (04/20/15 10:58 PM) /2014 [facility] BLOOD BANK ABO/Rh A POS 04/[address] [facility] BLOOD BANK RBC product Product available 1 04/21 <sup> 1</sup>R [place] RESULTS (04/20/15 9:05 PM) [facility]: 04/21/2015 00:32 [id number]
notified Sudheer HARRY RN that RBC is ready HEMATOLOGY MPV 9.0 7.4 - 10.4 / MH [place] /2015 [place] HEMATOLOGY RDW 16.2 11.5 - 06/ MH [place] 14.5 /2014 [place] HEMATOLOGY MCHC 33.5 32.0 - 06/ MH [place] 36.0 /2014 [place] HEMATOLOGY MCH 30.8 27.0 - / MH [place] 31.0 /2014 [place] HEMATOLOGY MCV 91.8 80.0 - / MH [place] 94.0 /2014 [place] HEMATOLOGY Hct 24.5 42.0 - 06/ MH [place] 54.0 /2014 [place] HEMATOLOGY Hgb 8.2 14.0 - / MH [place] 18.0 /2014 [place] HEMATOLOGY RBC 2.66 4.70 - 06/ MH [place] 6.10 /2014 [place] HEMATOLOGY WBC 8.7 3.7 - 10.4 / MH [place] /2015 [place] HEMATOLOGY Platelet 279 133 - 450 / MH [place] /2015 [place] HEMATOLOGY Monocytes # 1.1 0.0 - 0.8 / [place] /2015 [place] HEMATOLOGY Basophils # 0.0 0.0 - 0.2 06/ MH [place] /2015 [place] HEMATOLOGY Eosinophils 0.1 0.0 - 0.5 06/ MH [place] # /2014 [place] HEMATOLOGY Lymphocytes 1.4 1.0 - 5.5 / [place] # /2014 [place] HEMATOLOGY Segs-Bands # 6.0 1.5 - 8.1 / MH [place] /2014 [place] HEMATOLOGY Basophils 0.4 0.0 - 1.0 / MH [place] /2015 [place] HEMATOLOGY Eosinophils 1.5 0.0 - 4.0 / MH [place] /2015 [place] HEMATOLOGY Monocytes 12.7 2.0 - 12.0 / MH [place] /2015 [place] HEMATOLOGY Lymphocytes 16.6 20.0 - / MH [place] 40.0 /2015 [place] HEMATOLOGY Segs 68.8 45.0 - 06/ MH [place] 75.0 /2015 [place] CHEM PANEL eGFR 54 06/ <sup>5</sup>R MH [place] /2014 [place]ult [place] Comment: [...] CHEM PANEL Potassium 4.1 3.5 - 5.1 06/ MH [place] Lvl /2014 [place] CHEM PANEL Creatinine 1.3 0.5 - 1.4 / MH [place] Lvl [place] CHEM PANEL Sodium Lvl 131 135 - 145 / MH [place] CHEM PANEL BUN 41 7 - 22 / MH [place] CHEM PANEL Glucose Lvl 106 70 - 99 04/19 <sup>8</sup>I MH [place] /[address] [facility] Data: Adult reference range values reflect the clinical guidelines
of the [place] [employer]. CHEM PANEL AST 31 0 - 37 / MH [place] CHEM PANEL Alk Phos 108 39 - 136 / MH [place] CHEM PANEL ALT 28 0 - 65 / MH [place] CHEM PANEL Bili Total 0.6 0.2 - 1.3 / MH [place] CHEM PANEL Total 5.7 6.4 - 8.4 / MH [place] Protein /2014 [place] CHEM PANEL Albumin Lvl 1.9 3.5 - 5.0 06/ MH [place] /2014 [place] CHEM PANEL Chloride Lvl 98 95 - 109 / MH [place] /2014 [place] CHEM PANEL CO2 22 24 - 32 / MH [place] CHEM PANEL Calcium Lvl 7.8 8.5 - 10.5 / MH [place] /2014 [place] CHEM PANEL AGAP 15.1 10.0 - 06/ MH [place] 20.0 /2015 [place] CHEM PANEL B/C Ratio 32 6 - 25 06/ MH [place] CHEM PANEL Globulin 3.8 2.0 - 4.0 06/02 MH [place] /2015 [place] CHEM PANEL A/G Ratio 0.5 0.7 - 1.6 06/02 MH [place] /2015 [place] HEMATOLOGY Platelet 300 133 - 450 06/ MH [place] /2014 [place] HEMATOLOGY MPV 9.1 7.4 - 10.4 06/ MH [place] /2014 [place] HEMATOLOGY MCHC 33.9 32.0 - 06/ MH [place] 36.0 /2014 [place] HEMATOLOGY RDW 16.0 11.5 - 06/ MH [place] 14.5 /2014 [place] HEMATOLOGY WBC 12.7 3.7 - 10.4 06/02 MH [place] /2014 [place] HEMATOLOGY Hgb 9.0 14.0 - 06/ MH [place] 18.0 /2014 [place] HEMATOLOGY RBC 2.88 4.70 - 06/ [place] 6.10 /2014 [place] HEMATOLOGY MCV 92.4 80.0 - 06/ [place] 94.0 /2014 [place] HEMATOLOGY MCH 31.3 27.0 - 06/ [place] 31.0 /2014 [place] HEMATOLOGY Hct 26.6 42.0 - 06/ [place] 54.0 /2014 [place] HEMATOLOGY Eosinophils 0.3 0.0 - 0.5 06/02 [place] # /2014 [place] HEMATOLOGY Basophils # 0.1 0.0 - 0.2 06/ MH [place] /2014 [place] HEMATOLOGY Lymphocytes 1.7 1.0 - 5.5 06/ [place] # /2014 [place] HEMATOLOGY Eosinophils 2.0 0.0 - 4.0 06/ MH [place] /2015 [place] HEMATOLOGY Segs-Bands # 9.6 1.5 - 8.1 06/ [place] /2014 [place] HEMATOLOGY Monocytes # 1.1 0.0 - 0.8 06/02 [place] /2015 [place] HEMATOLOGY Basophils 0.5 0.0 - 1.0 06/02 MH [place] /2015 [place] HEMATOLOGY Monocytes 8.5 2.0 - 12.0 06/02 MH [place] /2014 [place] HEMATOLOGY Segs 75.5 45.0 - 06/02 MH [place] 75.0 /2014 [place] HEMATOLOGY Lymphocytes 13.5 20.0 - 06/02 MH [place] 40.0 /2014 [place] CHEM PANEL Alk Phos 112 39 - 136 / MH [place] /2014 [place] CHEM PANEL Bili Total 0.8 0.2 - 1.3 / MH [place] /2014 [place] CHEM PANEL B/C Ratio 32 6 - 25 05/31 MH [place] /2014 [place] CHEM PANEL Globulin 3.6 2.0 - 4.0 05/31 MH [place] /2014 [place] CHEM PANEL A/G Ratio 0.6 0.7 - 1.6 05/ MH [place] /2014 [place] CHEM PANEL Total 5.6 6.4 - 8.4 05/ MH [place] Protein /2014 [place] CHEM PANEL Albumin Lvl 2.0 3.5 - 5.0 05/ MH [place] [...] 45 0 - 65 05/30 MH [place] /2014 [place] CHEM PANEL A/G Ratio 0.6 0.7 - 1.6 05/ MH [place] /2014 [place] CHEM PANEL Globulin 3.4 2.0 - 4.0 05/ MH [place] /2014 [facility] BLOOD BANK ABO/Rh A POS 04/15 MH [place] RESULTS /2014 [facility] BLOOD BANK Antibody Negative 04/15 MH [place] RESULTS Scrn (04/15/15 1:52 PM) [facility] BLOOD BANK RBC product Product available 2 04/15 <sup> 2</sup>R MH [place] RESULTS (04/15/15 12:09 PM) /2014 [place] Comment: 04/15/2015 16:33 [id number]
Contacted to RN. Calos Javier at 04/15/2015 16:33 by Farida Ceballos CHEM PANEL Phosphorus 4.0 2.5 - 4.5 04/13 MH [place] CHEM PANEL Magnesium 1.8 1.8 - 2.4 04/13 MH [place] Lvl [place] CHEM PANEL Magnesium 2.0 1.8 - 2.4 04/12 MH [place] Lvl /2014 [place] CHEM PANEL Phosphorus 3.2 2.5 - 4.5 04/[address] [facility] CHEM PANEL Bili 0.3 0.0 - 1.0 04/[address] [facility] CHEM PANEL Bili Direct 0.2 0.0 - 0.3 04/[address] [facility] TOXICOLOGY Vanco l 15.7 04/10 <sup>9</sup>I nterpretive [place] Data: Therapeutic Range:
Trough: 10 - 20 ug/mL
Peak: 20 - 40 ug/mL
Potential Toxicity: >80 ug/mL CHEM PANEL Phosphorus 3.4 2.5 - 4.5 04/09 [facility] CHEM PANEL Magnesium 2.3 1.8 - 2.4 04/[address] [facility] HEMATOLOGY Bands 8.0 0.0 - 11.0 04/09 [facility] HEMATOLOGY Atypical 0.0 <=0.0 % 04/09 [facility] Lymph[address] [facility] HEMATOLOGY Plt Morph Normal 04/09 [place] (04/09/15 5:19 AM) [facility] HEMATOLOGY Tot Cell Ct 100 04/09 [facility] HEMATOLOGY INR 1.43 0.85 - 04/09 <sup>14</sup> [place] 1.17 [place] Data: RECOMMENDED RANGES FOR PROTIME INR:
2.0-3.0 for most medical and surgical thromboemboli c states.
2.5-3.5 for artificial heart valves and recurrent embolism.<br/ >
INR SHOULD BE USED ONLY FOR PATIENTS ON STABLE ANTICOAGULANT THERAPY. HEMATOLOGY PT 17.7 12.0 - 04/[address] [facility] HEMATOLOGY PTT 35.4 22.9 - 04/09 <sup>16</sup> [place] 35.8 /2014 [place] Data: Heparin Therapeutic Range: 57 - 92 Seconds TOXICOLOGY Vanco l 14.9 04/09 <sup>10</sup> Sarkar gar Interpretive [place] Data: Therapeutic Range:
Trough: 10 - 20 ug/mL
Peak: 20 - 40 ug/mL
Potential Toxicity: >80 ug/mL BACTERIAL MRSA by PCR Negative 18 04/09 <sup>18</sup> [place] - SEROLOGY (04/08/15 7:24 PM) Interpretiv e [facility] Data: Interpretive Data: The [employer] MRSA [...] by the Molecular Diagnostic Laboratory within the [facility]. The Molecular Diagnostic Laboratory is authorized under the Clinical Laboratory Improvement Amendment of 1988 (CLIA-88) to perform high complexity testing. CARDIAC Troponin-I 0.05 0.00 - 04/[address] [facility] CHEM PANEL Bili 0.2 0.0 - 1.0 04/08 [place] Indirect /2014 [facility] CHEM PANEL Bili Direct 0.3 0.0 - 0.3 04/[address] [facility] HEMATOLOGY Bands 14.0 0.0 - 11.0 04/08 [facility] HEMATOLOGY Tot Cell Ct 100 04/08 [facility] HEMATOLOGY Atypical 0.0 <=0.0 % 04/[address] [facility] HEMATOLOGY RBC Morph Normal 04/08 [place] (04/08/15 2:58 AM) [facility] HEMATOLOGY Plt Morph Normal 04/08 [place] (04/08/15 2:58 AM) [facility] TOXICOLOGY Vanco Lvl 24.6 04/08 <sup>11</sup> Sarkar gar Interpretive [place] Data: Therapeutic Range:
Trough: 10 - 20 ug/mL
Peak: 20 - 40 ug/mL
Potential Toxicity: >80 ug/mL URINE CHEM U Sodium 20 04/07 <sup>13</sup> [place] Interpretive [place] Data: No established reference ranges. URINE CHEM U Creatinine 160.9 04/07 <sup>12</sup> [place] Interpretive [place] Data: No established reference ranges. URINE AND UA Amorph Few /HPF None Seen 04/07 [place] STOOL Patricia /HPF /2014 [place] URINE AND UA Mucus Rare /LPF None Seen 04/07 [place] STOOL /LPF /2014 [place] URINE AND UA Protein Negative Negative 04/07 [place] STOOL (04/07/15 6:44 PM) [place] URINE AND UA Ketones Negative Negative [...] 6:44 PM) /2014 [place] URINE AND UA 0.2 0.1 - 1.0 04/07 [place] STOOL Urobilinogen /2014 [place] URINE AND UA Bacteria Few /HPF None Seen 04/07 [place] STOOL /HPF /2014 [place] URINE AND UA Blood Trace Negative 04/07 [place] STOOL *ABN* /2014 [place] (04/07/15 6:44 PM) URINE AND UA Bili Small Negative 04/07 [place] STOOL *ABN* /2014 [facility] (04/07/15 6:44 PM) URINE AND UA Turbidity Slight Cloudy Clear 04/07 [place] STOOL (04/07/15 6:44 PM) [place] URINE AND UA Color Yellow Yellow 04/07 [place] STOOL *NA* /2014 [place] (04/07/15 6:44 PM) URINE AND UA Spec Grav >=1.030 <=1.030 04/07 [place] STOOL *ABN* /2014 [place] (04/07/15 6:44 PM) URINE CHEM U Eos None Seen None Seen 04/07 [place] (04/07/15 6:44 PM) [place] CARDIAC CK MB 1.8 0.5 - 3.6 04/07 [place] ENZYMES /2014 [place] CARDIAC Troponin-I <0.02 0.00 - 04/07 [place] ENZYMES 0.40 /2014 [facility] CHEM PANEL Lactic Acid 1.9 0.5 - 2.2 04/07 [place] Lvl /2014 [facility] HEMATOLOGY Tot Cell Ct 100 04/07 [place] /2014 [facility] HEMATOLOGY Plt Morph Normal 04/07 [place] (04/07/15 6:28 AM) [facility] HEMATOLOGY Atypical 0.0 <=0.0 % 04/07 [place] Lymphs /2014 [facility] HEMATOLOGY Bands 14.0 0.0 - 11.0 04/07 [place] URINE AND UA RBC 3-5 /HPF 0 - 2 04/06 [place] STOOL [place] URINE AND UA Sq Epi Occasional [...] Negative Negative 04/06 [place] STOOL *NA* /2014 [facility] (04/06/15 11:00 AM) URINE AND UA Leuk Est Negative Negative 04/06 [place] STOOL (04/06/15 11:00 AM) [place] URINE AND UA Blood Negative Negative 04/06 [place] STOOL (04/06/15 11:00 AM) [place] URINE AND UA Bili Negative Negative 04/06 [place] STOOL *NA* /2014 [facility] (04/06/15 11:00 AM) URINE AND UA Glucose [...] Clear 04/06 [place] STOOL (04/06/15 11:00 AM) /2014 [facility] BLOOD BANK ABO/Rh A POS 04/06 [place] RESULTS /2014 [facility] BLOOD BANK Antibody Negative 04/06 [place] RESULTS Scrn (04/06/15 10:10 AM) [facility] CHEM PANEL Lactic Acid 2.3 0.5 - 2.2 04/06 S[place] r Lvl /2014 [facility] CHEM PANEL Lipase Lvl 126 73 - 393 04/[address] [facility] HEMATOLOGY PT 14.8 12.0 - 04/06 Sugar 14.7 /2014 [facility] HEMATOLOGY INR 1.15 0.85 - 04/06 <sup>15</sup> Suga r [address]. [address] [facility] Data: RECOMMENDED RANGES FOR PROTIME INR:
2.0-3.0 for most medical and surgical thromboemboli c states.
2.5-3.5 for artificial heart valves and recurrent embolism.<br/ >
INR SHOULD BE USED ONLY FOR PATIENTS ON STABLE ANTICOAGULANT THERAPY. HEMATOLOGY PTT 32.9 22.9 - 04/06 <sup>17</sup> [place] r 35.[address] [facility] Data: Heparin Therapeutic Range: 57 - 92 Seconds HEMATOLOGY Monocytes # 0.6 0.0 - 0.8 04/03 Suga r /2014 [facility] HEMATOLOGY Lymphocytes 1.2 1.0 - 5.5 04/03 [place] r # /2014 [facility] HEMATOLOGY Eosinophils 0.2 0.0 - 0.5 04/03 [place] r # /2014 [facility] HEMATOLOGY Basophils # 0.0 0.0 - 0.2 04/03 Suga r /2014 [facility] HEMATOLOGY Monocytes 7.4 2.0 - 12.0 04/03 Sugar /2014 [facility] HEMATOLOGY Eosinophils 1.8 0.0 - 4.0 04/03 Suga r /2014 [facility] HEMATOLOGY Segs 76.7 45.0 - 04/[address] [facility] HEMATOLOGY Basophils 0.2 0.0 - 1.0 04/[address] [facility] HEMATOLOGY Segs-Bands # 6.7 1.5 - 8.1 04/[address] [facility] HEMATOLOGY Lymphocytes 13.9 20.0 - 04/03 Sugar 40.0 /2014 [facility] HEMATOLOGY MCHC 33.8 32.0 - 04/03 Sugar 36.0 /2014 [facility] HEMATOLOGY MPV 8.1 7.4 - 10.4 04/03 Sugar /2014 [facility] HEMATOLOGY Platelet 273 133 - 450 04/03 [facility] HEMATOLOGY RDW 15.2 11.5 - 04/03 Sugar 14.5 /2014 [facility] HEMATOLOGY Hgb 9.9 14.0 - 04/03 Sugar 18.0 /2014 [facility] HEMATOLOGY MCH 32.6 27.0 - 04/03 Sugar 31.0 /2014 [facility] HEMATOLOGY RBC 3.05 4.70 - 04/03 Sugar 6.10 /2014 [facility] HEMATOLOGY WBC 8.8 3.7 - 10.4 04/[address] [facility] HEMATOLOGY MCV 96.3 80.0 - 04/[address] [facility] HEMATOLOGY Hct 29.4 42.0 - 04/[address] [facility] CHEM PANEL Phosphorus 3.3 2.5 - 4.5 04/02 [facility] CHEM PANEL Magnesium 1.9 1.8 - 2.4 04/[address] [facility] CHEM PANEL eGFR 74 04/02 <sup>2</sup>R MH [place] /2014 [facility] Comment: The eGFR is calculated using the [...] Sodium Lvl 138 135 - 145 04/02 [facility] CHEM PANEL Creatinine 1.0 0.5 - 1.4 05/16 [place] L[place] /2014 [place] CHEM PANEL Chloride Lvl 101 95 - 109 05/16 [place] /2014 [place] CHEM PANEL Calcium Lvl 8.5 8.5 - 10.5 05/16 [place] /2014 [place] CHEM PANEL Potassium 4.1 3.5 - 5.1 05/16 [place] Lvl /2014 [place] CHEM PANEL CO2 30 24 - 32 05/ [place] /2014 [place] CHEM PANEL Glucose Lvl 109 70 - 99 04/02 <sup>5</sup>I MH [place] /2014 [place] Data: Adult reference range values reflect the clinical guidelines
of the [place] [employer]. CHEM PANEL BUN 20 7 - 22 05/ MH [place] /2014 [place] CHEM PANEL AGAP 11.1 10.0 - 05/ [place] 20.0 /2014 [place] HEMATOLOGY Basophils # 0.0 0.0 - 0.2 05/16 [place] /2014 [place] HEMATOLOGY Eosinophils 0.1 0.0 - 0.5 / [place] # /2014 [place] HEMATOLOGY Monocytes # 0.8 0.0 - 0.8 /16 [place] /2014 [place] HEMATOLOGY Lymphocytes 1.5 1.0 - 5.5 /16 [place] # /2014 [place] HEMATOLOGY Segs 74.2 45.0 - 05/ [place] 75.0 /2014 [place] HEMATOLOGY Eosinophils 0.7 0.0 - 4.0 /16 [place] /2014 [place] HEMATOLOGY Segs-Bands # 6.8 1.5 - 8.1 / [place] /2014 [place] HEMATOLOGY Monocytes 8.8 2.0 - 12.0 05/16 [facility] [place] /2014 [place] HEMATOLOGY Lymphocytes 15.9 20.0 - 05/16 [place] 40.0 /2015 [place] HEMATOLOGY Basophils 0.4 0.0 - 1.0 /16 [facility] [place] /2014 [place] HEMATOLOGY Platelet 273 133 - 450 05/16 [facility] [place] /2014 [place] HEMATOLOGY MPV 8.0 7.4 - 10.4 05/16 [facility] [place] /2014 [place] HEMATOLOGY Hct 29.8 42.0 - 05/16 [place] 54.0 /2014 [place] HEMATOLOGY MCH 31.8 27.0 - 05/ [place] 31.0 /2014 [place] HEMATOLOGY MCV 97.0 80.0 - 05/16 [place] 94.0 /2014 [place] HEMATOLOGY RDW 15.5 11.5 - 05 [place] 14.5 /2014 [facility] HEMATOLOGY MCHC 32.8 32.0 - 05 [place] 36.0 /2015 [facility] HEMATOLOGY RBC 3.08 4.70 - 04/02 [place] 6.10 /2014 [facility] HEMATOLOGY WBC 9.2 3.7 - 10.4 04/02 [place] /2014 [facility] HEMATOLOGY Hgb 9.8 14.0 - 04/02 [place] 18.0 /2015 [facility] CHEM PANEL Magnesium 2.1 1.8 - 2.4 04/01 [place] Lvl /2014 [facility] CHEM PANEL Phosphorus 2.9 2.5 - 4.5 04/01 [place] /2014 [place] ELECTROLYT AGAP 10.5 10.0 - 04/01 [place] ES 20.0 /2014 [place] ELECTROLYT eGFR 66 04/01 <sup>3</sup>R [place] ES [place]ult [place] Comment: The eGFR is calculated [...] ELECTROLYT CO2 31 24 - 32 04/01 [place] ELECTROLYT Chloride Lvl 101 95 - 109 04/01 [place] ELECTROLYT BUN 17 7 - 22 04/01 [place] ES /2014 [place] ELECTROLYT Calcium Lvl 8.7 8.5 - 10.5 04/01 [place] ELECTROLYT Sodium Lvl 138 135 - 145 04/01 [place] ELECTROLYT Potassium 4.5 3.5 - 5.1 04/01 [place] ES Lvl /2014 [place] ELECTROLYT Glucose Lvl 112 70 - 99 04/01 <sup>6</sup>I MH [place] ES /2014 [place]pret[place] Data: Adult reference range values reflect the clinical guidelines
of the [place] [employer]. ELECTROLYT Creatinine 1.1 0.5 - 1.4 05/15 MH [place] ES Lvl /2014 [place] HEMATOLOGY Segs 80.4 45.0 - 05/ MH [place] 75.0 /2014 [place] HEMATOLOGY Monocytes 8.5 2.0 - 12.0 05/15 [facility] [place] /2015 [place] HEMATOLOGY Lymphocytes 10.8 20.0 - 05/ MH [place] 40.0 /2015 [place] HEMATOLOGY Eosinophils 0.1 0.0 - 4.0 05/ MH [place] /2015 [place] HEMATOLOGY Basophils 0.2 0.0 - 1.0 05/15 [facility] [place] /2015 [place] HEMATOLOGY Segs-Bands # 12.3 1.5 - 8.1 05/ MH [place] ar /2015 [place] HEMATOLOGY Monocytes # 1.3 0.0 - 0.8 05/15 [facility] [place] /2015 [place] HEMATOLOGY Lymphocytes 1.6 1.0 - 5.5 05/15 MH [place] # /2014 [place] HEMATOLOGY Basophils # 0.0 0.0 - 0.2 05/15 [facility] [place] /2015 [place] HEMATOLOGY Eosinophils 0.0 0.0 - 0.5 05/15 MH [place] # /2015 [place] HEMATOLOGY WBC 15.2 3.7 - 10.4 05/15 [facility] [place] /2015 [place] HEMATOLOGY Hgb 10.6 14.0 - 0515 MH [place] 18.0 /2014 [place] HEMATOLOGY MCHC [...] [place] HEMATOLOGY Platelet 303 133 - 450 05/15 [facility] [place] /2015 [place] HEMATOLOGY RDW 15.2 11.5 - 05/15 MH [place] 14.5 /2015 [place] CHEM PANEL eGFR 66 03/31 <sup>4</sup>R MH [place] /[address] [facility] Comment: The eGFR is calculated using the [...] PANEL BUN 19 7 - 22 03/31 [place] CHEM PANEL Glucose Lvl 132 70 - 99 03/31 <sup>7</sup>I Sugar nterpretive [facility] Data: Adult reference range values reflect the clinical guidelines
of the [place] [employer]. CHEM PANEL Potassium 4.4 3.5 - 5.1 03/31 [place] CHEM PANEL Sodium Lvl 136 135 - 145 03/31 [place] CHEM PANEL Chloride Lvl 100 95 - 109 03/31 [place] CHEM PANEL Creatinine 1.1 0.5 - 1.4 03/31 [place] CHEM PANEL CO2 29 24 - 32 03/31 [facility] [place] CHEM PANEL Calcium Lvl 8.7 8.5 - 10.5 03/31 [place] CHEM PANEL AGAP 11.4 10.0 - 03/31 [place] 20.0 [place] CHEM PANEL Phosphorus 3.5 2.5 - 4.5 03/31 [facility] [place] CHEM PANEL Magnesium 1.7 1.8 - 2.4 03/31 [place] HEMATOLOGY RBC Morph Normal 03/31 [place] (03/31/15 7:51 AM) /2014 [place] HEMATOLOGY Plt Morph Normal 03/31 MH [place] (03/31/15 7:51 AM) /2014 [facility] BLOOD BANK RBC product Product available 1 03/30 <sup> 1</sup>R MH [place] RESULTS (03/30/15 1:01 PM) /2014 [place] Comment: 03/30/2015 13:59 [id number]
Notified to Lisbet Brooks (RN) at 03/30/2015 13:55 for RBC units are available by MARYANN. BLOOD BANK ABO/Rh A POS 03/30 MH [place] RESULTS /2014 [facility] BLOOD BANK Antibody Negative 03/30 MH [place] RESULTS Scrn (03/30/15 8:50 AM) /2014 [place] CHEM PANEL ALT 35 0 - 65 05/ MH [place] /2014 [place] CHEM PANEL Albumin Lvl 2.6 3.5 - 5.0 03/30 MH [place] /2014 [place] CHEM PANEL Bili Total 1.1 0.2 - 1.3 / MH [place] /2014 [place] CHEM PANEL AST 42 0 - 37 05/ MH [place] /2014 [place] CHEM PANEL Alk Phos 159 39 - 136 / MH [place] /2014 [place] CHEM PANEL Total 5.9 6.4 - 8.4 / MH [place] Protein /2014 [place] CHEM PANEL Globulin 3.3 2.0 - 4.0 / MH [place] /2014 [place] CHEM PANEL B/C Ratio 15 6 - 25 05/13 [facility] [place] /2014 [place] CHEM PANEL A/G Ratio 0.8 0.7 - 1.6 / MH [place] /2014 [facility] CARDIAC Troponin-I <0.02 0.00 - 05/ MH [place] ENZYMES 0.40 /2014 [place] CHEM PANEL Total 6.3 6.4 - 8.4 05/ MH [place] Protein /2014 [place] CHEM PANEL B/C Ratio 18 6 - 25 05/12 [facility] [place] /2014 [place] CHEM PANEL Albumin Lvl 2.8 3.5 - 5.0 05/ MH [place] /2014 [place] CHEM PANEL AST 66 0 - 37 05/12 [facility] [place] /2014 [place] CHEM PANEL Alk Phos 197 39 - 136 05/ MH [place] /2014 [place] CHEM PANEL Bili Total 2.1 0.2 - 1.3 05/ MH [place] /2014 [place] CHEM PANEL A/G Ratio 0.8 0.7 - 1.6 05/ MH [place] /2014 [place] CHEM PANEL ALT 43 0 - 65 05/12 [facility] [place] /2014 [place] CHEM PANEL Globulin 3.5 2.0 - 4.0 03/29 [place] /2014 [place] URINE AND UA Ketones Negative Negative 03/28 [place] STOOL mg/dL mg/dL [...] Negative Negative 03/28 [place] STOOL *NA* /2014 [place] (03/28/15 1:59 PM) URINE AND UA Leuk Est Negative Negative 03/28 [place] STOOL (03/28/15 1:59 PM) /2014 [place] URINE AND UA Nitrite Negative Negative 03/28 [place] STOOL (03/28/15 1:59 PM) [place] URINE AND UA Blood Negative Negative 03/28 [place] STOOL (03/28/15 1:59 PM) [place] URINE AND UA 0.2 0.1 [...] None Seen 03/28 [place] STOOL /HPF /2014 [facility] CARDIAC CK MB Index 4.3 0.0 - 2.5 03/28 [place] ENZYMES /2014 [facility] CARDIAC Troponin-I <0.02 0.00 - 03/28 [place] ENZYMES 0.40 /2014 [facility] CARDIAC Total CK 54 12 - 191 03/28 [place] ENZYMES /2014 [facility] CARDIAC CK MB 2.3 0.5 - 3.6 03/28 [place] CHEM PANEL Amylase Lvl 43 25 - 115 03/28 [place] CHEM PANEL Lipase Lvl 155 73 - 393 03/28 [place] CHEM PANEL Globulin 4.0 2.0 - 4.0 03/28 [place] /2014 [place] CHEM PANEL Bili Total 0.5 0.2 - 1.3 03/28 [place] CHEM PANEL A/G Ratio 0.8 0.7 - 1.6 03/28 [place] CHEM PANEL B/C Ratio 22 6 - 25 03/28 [place] CHEM PANEL ALT 31 0 - 65 03/28 [place] CHEM PANEL Alk Phos 108 39 - 136 03/28 [facility] CHEM PANEL AST 34 0 - 37 03/28 [facility] CHEM PANEL Albumin Lvl 3.0 3.5 - 5.0 03/28 [place] /2014 [facility] CHEM PANEL Total 7.0 6.4 - 8.4 03/[address] [facility] HEMATOLOGY Anisocyte 1+ None Seen 03/28 [place] *ABN* /2014 [facility] (03/28/15 1:43 PM) HEMATOLOGY Plt Morph Normal 03/28 [facility] (03/28/15 1:43 PM) /2014 [facility] HEMATOLOGY INR 1.06 0.85 - 03/28 <sup>8</sup>I [place] 1.[address] [facility] Data: RECOMMENDED RANGES FOR PROTIME INR:
2.0-3.0 for most medical and surgical thromboemboli c states.
2.5-3.5 for artificial heart valves and recurrent embolism.<br/ >
INR SHOULD BE USED ONLY FOR PATIENTS ON STABLE ANTICOAGULANT THERAPY. HEMATOLOGY PTT 34.6 22.9 - 03/28 <sup>9</sup>I [place] 35.8 /[address] [facility] Data: Heparin Therapeutic Range: 57 - 92 Seconds HEMATOLOGY PT 13.8 12.0 - 03/[address] 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 3D rendering: MIP and/or 3D reconstructed images were created by the technologist. Radiation optimization: All CT scans at this facility use at least one of these dose optimization techniques: automated exposure control; mA and/or kV adjustment per patient size (includes targeted e xams where dose is matched to clinical indication); or iterative reconstructio n. Contrast material: OMNIPAQUE 300; Contrast volum e: 100 ml; Contrast route: INTRAVENOUS (IV); COMPARISON: ABDOMEN/PELVIS WO IV CONTRAST CT 11/11/2018 12:5 4 AM RADIATION DOSE METRICS: Total DLP (mGy-cm): 1325.25 FINDINGS: Tubes, catheters and devices: Left-sided dual le ad pacemaker present. Lungs: Mild bilateral lower lobe dependent subse gmental atelectasis. Heart: Mild cardiomegaly. [place] mitral valve dystrophic annular calcification. Aorta: Proximal SMA/origin s evere calcified plaque formation creating a roughly 80-90% 1-1.5 cm length segment of hemodynamicall y significant stenosis. However, maintained perfusion of the SMA arteria l territory. Lvim-[id number] scattered calcified plaque formation in the abdominal aorta creating a roughly 40% short-segment endoluminal stenosis at the le bianca of the AMBER origin. Celiac trunk and mesenteric arteries: Celiac arterial origin chronic occlusion, but with distal reconstitution immediately 1 cm from the aortic origin with perfusion of the celiac arterial territory, like ly from retrograde collateral flow from the SMA via the GDA and pancreaticoduo denal arc of [place]. AMBER origin moderate calcified plaque, but with other gale patent AMBER and perfusion of the AMBER arterial territory. Renal arteries: No occlusion or significant sten osis. Right iliac arteries: [id number] calcified plaque in the right common iliac artery creating less than 50% short-segmen t endoluminal stenosis. Right femoral/popliteal arteries: Right common f emoral arterial severe calcified plaque creating roughly 70-75 % short- segment endoluminal stenosis. Left iliac arteries: Left common iliac arterial moderate calcified plaque formation creating a 50% short-segment endolumin al stenosis. Other arteries: Proximal bilateral renal/origin arterial moderate calcified plaque formation creating roughly 50% short-segm ent endoluminal stenosis, but with perfusion of the respective arterial territ ories. Liver: No mass. Gallbladder and bile ducts: Gallbladder surgical ly absent. Pancreas: Unremarkable. No mass. No ductal dilat ion. Spleen: Unremarkable. No splenomegaly. Adrenals: Unremarkable. No mass. Kidneys and ureters: Mild bilateral perinephric stranding. No renal mass, calculus, or hydronephrosis. Ureters are normal. Stomach and bowel: Gastric pyloric in duodenal b ulb postoperative surgical kenneth present. Right hemicolectomy and ileocol ic surgical postoperative changes. Remaining gastrointestinal tract is bismark ssly normal. Appendix: No evidence of appendicitis. Intraperitoneal space: Unremarkable. No free air . No significant fluid collection. Retroperitoneal space: Almost completely resolve d chronic deep right lower quadrant retroperitoneal fluid collection with m ural scarred thickening, now measuring 4.7 (craniocaudal) x 1.2 x 1.2 cm compared to that previously seen on 11/11/2018 when it grossly measured 10 (cranioca udal) x 6.4 x 4.6 cm. Bladder demonstrates mild right anterolateral mural scar ring/thickening immediately adjacent to the right lower quadrant retroperito cecilia scarred focus aforementioned. Lymph nodes: Unremarkable. No enlarged lymph nod es. Bladder: Unremarkable. No mass. Reproductive: Unremarkable as visualized. Bones/joints: L4/5 degenerative disc disease. L2 /3 bilateral posterior facet joint arthropathy. Minimal grade 1 degenerative L2 over L3 retrolisthesis. Soft tissues: Unremarkable. IMPRESSION: 1. Celiac arterial origin chronic occlusion, but with distal reconstitution immediately 1 cm from its aortic origin with per fusion of the celiac arterial territory, likely from retrograde collat eral flow from the SMA via the GDA and pancreaticoduodenal arc of [place]. 2. Proximal SMA/origin severe calcified plaque f ormation creating a roughly 80-90% 1-1.5 cm length segment of hemodynamicall y significant stenosis. However, maintained perfusion of the SMA arteria l territory. 3. AMBER origin moderate calcified plaque, but wit h otherwise patent AMBER and perfusion of the AMBER arterial territory. 4. Proximal bilateral renal/ origin arterial moderate calcified plaque formation creating roughly 50% short-segment endol uminal stenoses, but with perfusion of the respective arterial territories. 5. Bxbx-xu-ojmgxqsq scattere d calcified plaque formation in the abdominal aorta creating a roughly 40% short-segment endoluminal stenosis at the level of the AMBER origin. 6. Left common iliac arterial moderate calcified plaque formation creating a 50% short-segment endoluminal stenosis. 7. Right common femoral risa rial severe calcified plaque creating roughly 70-75 % short-segment endoluminal stenosis. 8. Mild cardiomegaly. 9. Almost completely resolve d chronic deep right lower quadrant retroperitoneal fluid collection with mural scarred thickening, now measuring 4.7 (craniocaudal) x 1.2 x 1.2 cm compared to that p reviously seen on 11/11/2018 when it grossly measured 10 (craniocaudal) x 6.4 x 4.6 cm. 10. Bladder demonstrates mild right anterolatera l mural scarring/thickening adjacent to the right lower quadrant retroperito cecilia scarred focus aforementioned. 11. Degree of chronic medical renal disease. Tato Marcano MD On 07/04/2020 10:17:04 ; [id number] Abdomen/Pelvis wo IV CT ABDOMEN AND PELVIS WITHOUT CONTRAST 10/19 [facility] contrast CT INDICATION: Generalized abdominal pain, CT [...] Chest 1view DX PROCEDURE: Chest Radiograph. 11/10/2018 [facility] Clinical Indication: Abdominal pain. Comparison: Chest radiograph [...] Cardiomegaly with small bilateral pleural eff usions [id number] Abdomen 2 views DX EXAM: Abdomen 2 views DX 06/04/2018 [facility] [place] HISTORY: - sbo COMPARISON: 06/03/2018 Heavy [...] Carotid artery Doppler Patient Name: TOMER CLAYTON [place] bilat US : 1940; Age: 77 years y/o Male MR: [id number] Study: Carotid artery Doppler bilat US 04/12/2018 [...] and Sex: Male. : 1940. Technique: 3-D [id number] SPGR axial acquisition was performed with [...] significant lesion. Brain wo contrast MRI 04/11/2018 LISSETH Lou and Sex: Male. : 1940. Technique: Sagittal, [...] Impression #4 should read as follows: 04/11/[address] 4. New fluid collection in [...] 1view DX EXAM: AP CHEST X-RAY 04/11/2018 Kailey Wade nd DATE: 04/11/2018 2:49 PM CDT [...] contrast MRA BRAIN MRA WITHOUT CONTRAST 09/04/2016 [place] Clinical History: Syncope. Sex: Male. : 1940. TECHNIQUE: 3-D [id number] t MRA without contrast. Source images as well as 3- D MIP and rotational reconstructions are interpreted. COMPARISON: Recent CT brain 09/01/2016 FINDINGS: Hypoplastic right DOCUMENTATION NURSE P1 segment with associated type origin of the right DOCUMENTATION NURSE is noted as a recognized anatomic variant of intracranial vascular development. The [place] of [place] is othe rwise unremarkable in config uration. There is no evidence of aneurysm , intracranial stenosis or major branch vessel occlusion. The anterior and posterior circulations demonstrate expected flow. IMPRESSION: No evidence of m ajor branch vessel occlusion or significant intracranial stenosis. Brain wo contrast MRI Clinical History Provided: Syncope. 2015 [place] Sex: Male. : 1940. Procedure: Sagittal T1, [...] acute infarction. Neck CTA CLINICAL HISTORY:Syncope. 09/03/2016 [facility] [place] Sex: Male. : 1940. TECHNIQUE: Axial scans [...] at the terminus with a prominent left DOCUMENTATION NURSE origin and bulb is termination 50% stenosis [...] and myocardial perfusion ejection fraction, 09/03/2016 09/03/2016 [facility] [place] HISTORY: Syncopal episode, p ossible [...] PELVIS WITH IV CONTRAS T, 09/02/2016 09/02/[address] [facility] [address] HISTORY: Acute abdominal pa in. [...] artery Doppler CAROTID ARTERY DOPPLER ULTRASOUND, 201509/02/2016 [place] bilat [place] HISTORY: Carotid bruit. Compared to exam dated 05/26/2015. TECHNIQUE: Carotid ultrasoun d with color Doppler imaging and spectral analysis was performed. Degree of stenosis assessed by criteria developed by U consensus conference on duplex ultrasound. FINDINGS: Extensive [...] CHEST AP SEMIERECT 09/01/2016, 12:13 AM 09/01/2016 [facility] HISTORY: Syncope. Compared to exam dated 2014. [...] CT EXAM: CT BRAIN WITHOUT CONTRAST 09/01/2016 [facility] DATE: 09/01/2016 12:05 PM CDT TECHNIQUE : [...] DX GASTROGRAFIN SMALL BOWEL SERIES, 5 10/08/2015 [facility] HISTORY: Abdominal distenti on. History of right hemicolectomy and partial gastric resection. FLUOROSCOPIC TIME: Zero minutes TECHNIQUE: One bottle of Ga strografin was injected into the NG tube. Transit time to colon was 4 hours 10 minutes. FINDINGS: Real Estate Investment Analyst film demonstrates naso gastric tube in the [...] AP DX Examination: Abdomen 1 view 10/07/2015 [place] Provided History: Nausea DIAGNOSIS: Nasogastric tube tip [...] AP DX Examination: Abdomen 1 view 10/06/2015 [facility] Provided History: Abdominal distension DIAGNOSIS: Introduction of [...] Abdomen/Pelvis IV Clinical history: Abdominal pain, acute. [facility] contrast only CT Sex: M. : 1940. [...] Chest 1view DX EXAM: Chest 1view 10/05/2015 [place] HISTORY: Syncope COMPARISON: 05/16/2015 The cardiac silhouette is st able. There is no focal consolidation, effusion or pneumothorax. The bones are osteopenic. IMPRESSION: No acute abnormality or significant change from prior exam. Abdomen/Pelvis w IV Exam: CT abdomen with contrast; CT pel vis with contrast: 07/08/[address] [facility] [address] History: Abscess. Prior hist ory [...] air contr ast w/ Small Bowel 06/14/2015 [facility] Small Bowel DX History: Abdominal Pain Fluoroscopy [...] including an oblique view of the st omach showing contrast exten ding somewhat anteriorly into [...] wo contrast MRI Clinical history: Erythema. 06/13/2015 [facility] Technique: Sagittal, Axial a nd Coronal sequences [...] w/wo contrast MRI Clinical history: Laceration. 05/26/2015 [facility] : 1940. Technique: Multiplanar T1, P D, [...] Doppler Examination: Carotid artery Doppler US 05/26/2015 [place] bil US History: Syncope and collapse DIAGNOSIS: 1. [...] views DX Examination: Foot AP lateral 05/25/2015 [facility] Provided History: Laceration DIAGNOSIS: Findings suspect for [...] IV EXAMINATION: Abdomen/Pelvis w contrast CT 05/24/[address] [facility] [address] DOSE: 882 mGy-cm HISTORY: Diarrhea [...] prior study dated 16 May 2015. DISCUSSION: Real Estate Investment Analyst views demo nstrate no incidental findings. Studies [...] AP DX Abdomen one view, 05/18/2015 05/18/2015 [facility] HISTORY: Abdominal distention. Compared to abdom en [...] w IV Clinical history: Abdominal pain, acute. [facility] contrast CT Sex: M. : 1940. Technique: [...] CLINICAL HISTORY:Altered level of consc iousness. 05/16/2015 [facility] Sex: M. : 1940. TECHNIQUE: Axial scans [...] Chest 1view DX Clinical history: Dizziness. 05/16/2015 [facility] : 1940. Technique: Portable AP chest x-ray [...] Stomach UGI (water so luble contrast) 04/15/2015 [facility] soluble DX History: Epigastric Pain Fluoroscopy Time: [...] DX Exam: Chest X-ray, 1 view 04/09/2015 [email or web address] History: Abnormal chest sounds Comparison: 04/08/2015 Findings: [...] AP DX HISTORY: Acute abdominal pain 04/07/2015 [facility] TECHNIQUE: Two views of the abdomen COMPARISON: None IMPRESSION: No evidence of free intraper itoneal air. Nonspecific gas-filled nondilated loops of small and large bowel are noted. No evidence of bowel obstruction. Cholecystectomy clips are seen. No acute osseous abnormality. No abnormal calcifications. Retroperitoneal Complete RENAL SONOGRAM 04/07/[address] [facility] US CLINICAL HISTORY: Renal insufficiency. COMPARISON IMAGING: [...] Clinical History: See Clinic Indication 04/06/20 15 [facility] Exam: CHEST April 06, 2015 04:34:00 AM [...] IV Exam: CT abdomen/pelvis with contrast 04/06 [facility] contrast only CT Clinical History: Acute abdominal [...] report is required for this exam. 10/2015 [facility] hour DX Technical component complete. Dose report sent t o PACS. Abdomen wo contrast MRI Clinical history: Abdominal pain, acute. 03/28/2015 [facility] Sex: M. : 1940. Technique: Multiplanar T1 [...] US Right upper quadrant abdominal ultrasound. 03/28 [place] HISTORY: Abdominal pain. IMPRESSION: 1. Multiple, mobile [...] the abdomen and pelvis with contrast 03/28/[address] [place] [address] Reason for Exam: Acute [...] Date Comments Source Respitory Rate 18 11/12/2018 [facility] Temperature Oral (F) 97.9 F 11/12/2018 [place] [facility] Rate 68 11/12/2018 [facility] Systolic (mm Hg) 164 11/12/2018 [place] Diastolic (mm Hg) 61 11/12/[address] Systolic (mm Hg) 179 11/12/2018 [place] Diastolic (mm Hg) 70 11/12/[address] Heart Rate 73 11/12/2018 [facility] Respitory Rate 18 11/12/2018 [facility] Temperature Oral (F) 98.5 F 11/12/2018 [place] Respitory Rate 18 11/12/2018 [facility] Systolic (mm Hg) 143 11/12/2018 [place] Diastolic (mm Hg) 64 11/12/[address] [facility] Temperature Oral (F) 98.9 F 11/12/2018 [place] Heart Rate 74 11/12/2018 [facility] Height 187.96 cm 11/11/2018 [facility] Weight 90.909 11/11/2018 [facility] BMI Calculated 25.73 11/11/2018 [place] Systolic (mm Hg) 152 06/04/2018 [place] Diastolic (mm Hg) 65 06/04/2018 [place] Respitory Rate 18 06/04/2018 [place] Heart Rate 57 06/04/2018 [place] Temperature Oral (F) 98.0 F 06/04/2018 [place] Temperature Oral (F) 97.6 F 06/04/2018 [place] Systolic (mm Hg) 146 06/04/2018 [place] Diastolic (mm Hg) 67 06/04/2018 [place] Heart Rate 57 06/04/2018 [place] Respitory Rate 18 06/04/2018 [place] Temperature Oral (F) 97.4 F 06/04/2018 [place] Respitory Rate 18 06/04/2018 [place] Heart Rate 66 06/04/2018 [place] Systolic (mm Hg) 143 06/04/2018 [place] Diastolic (mm Hg) 57 06/04/2018 [place] Weight 87.727 06/02/2018 [place] Height 187.96 cm 06/02/2018 [place] BMI Calculated 24.83 06/02/2018 [place] Temperature Oral (F) 98.4 F 04/13/2018 [place] Heart Rate 20 04/13/2018 [place] Systolic (mm Hg) 170 04/13/2018 [facility] [place] Diastolic (mm Hg) 64 04/13/2018 [place] Temperature Oral (F) 97.0 F 04/13/2018 [place] Systolic (mm Hg) 170 04/13/2018 [facility] [place] Diastolic (mm Hg) 63 04/13/2018 [place] Heart Rate 18 04/13/2018 [place] Temperature Oral (F) 97.9 F 04/13/2018 [place] Systolic (mm Hg) 127 04/13/2018 [place] Diastolic (mm Hg) 65 04/13/2018 [place] Heart Rate 19 04/13/2018 [place] Respitory Rate 20 04/12/2018 [place] Respitory Rate 20 04/12/2018 [place] Respitory Rate 20 04/12/2018 [place] BMI Calculated 23.8 04/11/2018 [place] Weight 86.364 04/11/2018 [facility] [place] Height 190.5 cm 04/11/2018 [place] Weight 91.108 04/11/2018 [place] BMI Calculated 25.79 04/11/2018 [place] Height 187.96 cm 04/11/2018 [place] Systolic (mm Hg) 138 09/05/2016 [place] Diastolic (mm Hg) 46 09/05/2016 [place] Respitory Rate 16 09/05/2016 [place] Systolic (mm Hg) 141 09/05/2016 [place] Diastolic (mm Hg) 52 09/05/2016 [place] Respitory Rate 13 09/05/2016 [place] Systolic (mm Hg) 122 09/05/2016 [place] Diastolic (mm Hg) 67 09/05/2016 [place] Respitory Rate 13 09/05/2016 [place] Temperature Oral (F) 97.9 F 09/05/2016 [place] Temperature Oral (F) 98.0 F 09/05/2016 [place] Height 187.96 cm 09/05/2016 [place] Temperature Oral (F) 98.1 F 09/05/2016 [place] Heart Rate 86 09/04/2016 [place] Heart Rate 85 09/04/2016 [place] Heart Rate 84 09/03/2016 [place] Weight 84.091 09/01/2016 [place] BMI Calculated 23.8 09/01/2016 [facility] [place] Height 187.96 cm 09/01/2016 [place] Temperature Oral (F) 97.4 F 10/11/2015 [place] Heart Rate 48 10/11/2015 [facility] [place] Systolic (mm Hg) 121 10/11/2015 [facility] [place] Diastolic (mm Hg) 64 10/11/2015 [place] Respitory Rate 18 10/11/2015 [facility] [place] Respitory Rate 18 10/11/2015 [facility] [place] Systolic (mm Hg) 114 10/11/2015 [facility] [place] Diastolic (mm Hg) 55 10/11/2015 [place] Temperature Oral (F) 97.5 F 10/11/2015 [place] Heart Rate 48 10/11/2015 [facility] [place] Systolic (mm Hg) 134 10/11/2015 [facility] [place] Diastolic (mm Hg) 50 10/11/2015 [place] Respitory Rate 18 10/11/2015 [place] Heart Rate 59 10/11/2015 [place] Temperature Oral (F) 97.7 F 10/11/2015 [place] BMI Calculated 22.56 10/06/2015 [place] Weight 79.716 10/06/2015 [place] Height 187.96 cm 10/06/2015 [place] Height 187.96 cm 10/05/2015 [place] BMI Calculated 23.03 10/05/2015 [place] Weight 81.364 10/05/2015 [facility] [place] Systolic (mm Hg) 152 06/19/2015 [facility] [place] Diastolic (mm Hg) 68 06/19/2015 [place] Heart Rate 66 06/19/2015 [place] Respitory Rate 20 06/19/2015 [place] Temperature Oral (F) 98.8 F 06/19/2015 [place] Respitory Rate 18 06/19/2015 [place] Heart Rate 73 06/19/2015 [facility] [place] Systolic (mm Hg) 159 06/19/2015 [facility] [place] Diastolic (mm Hg) 64 06/19/2015 [place] Respitory Rate 18 06/19/2015 [facility] [place] Systolic (mm Hg) 153 06/19/2015 [facility] [place] Diastolic (mm Hg) 56 06/19/2015 [place] Heart Rate 72 06/19/2015 [place] Temperature Oral (F) 97.5 F 06/18/2015 [facility] [place] Temperature Oral (F) 97.5 F 06/18/2015 [place] Weight 84.091 06/12/2015 [facility] [place] BMI Calculated 23.8 06/12/2015 [facility] [place] Height 187.96 cm 06/12/2015 [facility] [place] Weight 84.119 06/12/2015 [facility] [place] BMI Calculated 23.81 06/12/2015 [facility] [place] Height 187.96 cm 06/12/2015 [place] Respitory Rate 20 05/31/2015 [place] Temperature Oral (F) 97.8 F 05/31/2015 [place] Heart Rate 83 05/31/2015 [facility] [place] Systolic (mm Hg) 160 05/31/2015 [facility] [place] Diastolic (mm Hg) 69 05/31/2015 [place] Temperature Oral (F) 98.6 F 05/31/2015 [place] Respitory Rate 20 05/31/2015 [facility] [place] Systolic (mm Hg) 162 05/31/2015 [facility] [place] Diastolic (mm Hg) 64 05/31/2015 [place] Heart Rate 83 05/31/2015 [place] Respitory Rate 20 05/31/2015 [place] Temperature Oral (F) 97.7 F 05/31/2015 [place] Heart Rate 92 05/31/2015 [facility] [place] Systolic (mm Hg) 130 05/31/2015 [facility] [place] Diastolic (mm Hg) 55 05/31/2015 [facility] [place] BMI Calculated 24.45 05/17/2015 [place] Weight 86.364 05/17/2015 [facility] [place] Height 187.96 cm 05/17/2015 [facility] [place] Weight 86.364 05/16/2015 [place] BMI Calculated 24.45 05/16/2015 [facility] [place] Height 187.96 cm 05/16/2015 [facility] [place] Systolic (mm Hg) 138 04/28/2015 [facility] [place] Diastolic (mm Hg) 46 04/28/2015 [facility] [place] Heart Rate 67 04/28/2015 [place] Temperature Oral (F) 97.9 F 04/28/2015 [place] Respitory Rate 18 04/28/2015 [facility] [place] Heart Rate 69 04/28/2015 [place] Temperature Oral (F) 97.9 F 04/28/2015 [facility] [place] Respitory Rate 20 04/28/2015 [facility] [place] Systolic (mm Hg) 140 04/28/2015 [facility] [place] Diastolic (mm Hg) 50 04/28/2015 [place] Heart Rate 69 04/28/2015 [facility] [place] Respitory Rate 18 04/28/2015 [place] Temperature Oral (F) 97.8 F 04/28/2015 [place] Systolic (mm Hg) 156 04/28/2015 [facility] [place] Diastolic (mm Hg) 58 04/28/2015 [place] Weight 104.545 04/06/2015 [place] BMI Calculated 29.59 04/06/2015 [place] Height 187.96 cm 04/06/2015 [place] Weight 100 04/06/2015 [place] Temperature Oral (F) 98.6 F 04/04/2015 [place] Respitory Rate 18 04/04/2015 [place] Heart Rate 69 04/04/2015 [place] Systolic (mm Hg) 164 04/04/2015 [place] Diastolic (mm Hg) 58 04/04/2015 [place] Systolic (mm Hg) 180 04/04/2015 [facility] [place] Diastolic (mm Hg) 63 04/04/2015 [place] Temperature Oral (F) 97.9 F 04/04/2015 [place] Heart Rate 70 04/04/2015 [place] Respitory Rate 17 04/04/2015 [facility] [place] Systolic (mm Hg) 166 04/04/2015 [place] Diastolic (mm Hg) 58 04/04/2015 [place] Respitory Rate 16 04/04/2015 [place] Heart Rate 66 04/04/2015 [place] Temperature Oral (F) 98.5 F 04/04/2015 [place] BMI Calculated 27.48 03/29/2015 [place] Weight 99.716 03/29/2015 [place] Height 190.5 cm 03/29/2015 [place] BMI Calculated 29.43 03/28/2015 [place] Weight 106.818 03/28/2015 [facility] [place] Height 190.5 cm 03/28/2015 [place] Encounters Location Location Encounter Encounter Reason Attending ADM [place] Stat us Source Details Type Number For Provider Date Date Visit [facility] [id number] Britt 03/28 04/04 [place] Posani /2014 [facility] [id number] Mustaq 04/06 04/28 [place] Cherry /2014 [facility] [id number] Gio 05/16 05/31 [place] Dichoso /2014 [facility] [id number] Mustaq 06/13 06/19 [place] Cherry /2014 [place] [facility] Outpt Diag [id number] Peter 07/08 07/09 [facility] [id number] Mustaq 10/05 10/11 [place] Cherry /2014 [place] [facility] Inpatient [id number] Rahana 09/01 09/05 [place] Gav[place] Sunesara /2015 [place] [facility] Inpatient [id number] Rehan Sarkar 04/11 04/13 [place] /2017 [place] [facility] Inpatient [id number] Luz 06/02 06/04 [place] Gav[place] Celso /2017 [place] [facility] Inpatient [id number] Shon 11/11 11/12 Gavino Chavez Jr /2017 [facility] Outpt Diag [id number] Felice 07/01 07/02 [facility] Ball III /2019 [facility] Procedures Procedure Code Date Perfomer Comments Source Amputation<sup>1</sup [id number] 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 [place], and closure of [place], M wound H [facility] [place] [place] Exploratory [id number] 1fluorosine [place] laparotomy<sup>1</sup 5 angiogram, Charles d > gastric wedge resection Exploratory [id number] fluorosine [facility] laparotomy<sup>2</sup 5 angiogram, [place] > gastric wedge [place], resection [place],M H [facility] [place],[facility] [place] Partial resection of [id number] 2with S [place] colon<sup>2</sup> 5 laparoscopic [place] cholecystectomy, wet resection of the stomach Partial resection of [id number] with laparoscop ic [facility] colon<sup>3</sup> 5 cholecystectomy, [place] wet resection of [place], the stomach [place],M H [facility] [place],[facility] [place] Cholecystectomy [id number] MH [facility] [place] [place],M H [facility] [place] [place] [facility] [id number] MH [facility] [place] [place],M H [facility] [place] [place] Assessment and Plan Assessment and Plan Date Source Extracted from:Title: [facility] Hospitalist Service Discharge Summary 11/12/2018 [facility] Author: Shon Sanders MD Date: 11/12/18 [facility] Hospitalist Service Discharge Summary PATIENT NAME:TOMER CLAYTON ATTENDING: SHON CHAVEZ JR, MD ADMISSION DATE: 11/10/2018 23:07 DISCHARGE DATE: 11/12/2018 15:23 DISCHARGE DIAGNOSIS: Acute kidney failure, unspecified (N17.9) Syncope and collapse (R55) Orthostatic hypotension (I95.1) CONSULTING PHYSICIANS/SERVICES: None DISCHARGE CONDITION: Fair HISTORY OF PRESENT ILLNESS: Please see admission history and physical for presenting [facility] HOSPITAL COURSE: The patient presented to the [...] was somewhat elevated at time of discharge, [facility] he has also had extensive workup in [...] PCP, Call for appointment, within: 1 Deyvi joshua, reason: Primary Care Physician follow up post hospitalization A total of 34 minutes was spent planning discharge which included bedside counseling. Extracted from:Title: Clinical Document Author: Zarina Suarez MD Date: 11/11/18 [facility] Hospitalist Brief Progress Note Patient seen/examined at bedside. Admitt ed for dizziness, weakness, hypotension, NAZANIN likely related to dehydration. Continue IVFs. Cr improving. Hold xarelto until Cr improves. Zarina Suarez MD [facility] Hospitalist Extracted from:Title: History and Physical Author: Hua Grissom MD Date: 11/11/18 NAZANIN (acute kidney injury)(N17.9) >possibly pre-renalazotemia,worsened fro m baseline. No source for GI losses. No recent diuretic tx or diamox during travel. 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 Currently normotensive. Continue to monitor on telemetry. Will hold further w/u for cardiovascular source given significant prior w/u. Will trend cardizymes. 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 His postoperative course at that time was complicated by a perforated gastric ulcer requiring reoperation and resection. He was then diagnosed with lung cance r in August 2017 and has been undergoin g chemotherapy as well as radiation. Notably the patient also had a laparoscopic right inguinal hernia repair and removal of hydrocele done in [place] in October 2017. He now presents to [facility] secondary to a syncopal episode. The patient complains of a long-standing history of dizziness, generalized weakness, persistent nausea, heartburn, abdominal pain, p.o. intolerance and ir regular bowel habits alternating from diarrhea and constipation. He and his state that they have had multiple hospital visits between [place] and [place] over the last 3 years due to the above-s tated symptoms. They are very frustrated as no one can identify what is the cause of his symptoms. They also state that is been very difficult to get any follow -up appointments with his physicians. Si nce admission to [facility], he is undergone a significant workup including [...] with Dr. Lara in February 2017 in [place]. He apparently had significant scrotal edema following the surgery which required recurrent inguinal her raquel repair with circumcision in removal of hydrocele, October [address] Lara and Jack in [place]. 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 Lara in February 2017 in [place]. He apparently had significant scrotal edema following the surgery which required recurrent inguinal hernia repair with circ umcision in removal of hydrocele, [facility] er [address] Lara and Jack in [place] ALLERGIES: No known drug allergies SOCIAL HISTORY: [...] hernia repair and hydrocele excision performed in [place]. He also has a significant amount of [...] episodes. The patient was last seen in [facility] in 2015, and then transferred his care to [facility] because he was frustrated at lack of progress. Now patient is frustrated with lack of progress at [facility] and presented to [facility] ED. PMH: - as above - h/o [...] indicate small bowel obstruction at this time. all bowel series may be more in [...] Full code Extracted from:Title: Clinical Document 09/05/2016 [facility] Author: Nikolay Houston MD Date: 09/05/16 Discharge Summary Name: Tomer Clayton Record Number: [id number] Admission Date: 09/01/2016 Discharge Date: 09/05/2016 Diagnoses: [...] entered on: 11/10/18 Social History TypeResponse 11/11/2018 [facility] Substance Abuse Use: None. Sexual Sexually active: [...] entered on: 11/10/18 Social History TypeResponse 11/11/2018 [facility] Alcohol Never Employment/School Work/School description: retired. Sexual Sexually active: No. Substance Abuse Use: None. Smoking Status Former smoker; Type: Cigarettes; Previou [...]
--- OUTSIDE RECORDS SUMMARY | 2021-01-06 15:20 | XMS REPORT | Continuity of Care Document ---
:1940 Author Organization [facility] t Address [address] [place] [address] [place] [address] Care Team Providers Name Role Phone Asked, Pcp Primary Care Physician Unavailable Sudeep Cohen III Attending Clinician Atilio Tijerina Jr Attending Clinician Celso Attending [...] Clinician Date Chronic Chronic Problem Active [place] diarrhea Diarrhea 7 da 00:00: Medical 00 Group Chronic Chronic Problem Active [place] pain Pain 4 da 00:00: Medical 00 Group Pruritus Pruritus Problem Active [place] of skin of Skin 4 da 00:00: Medical 00 Group Peripheral Peripheral Problem Active M [place] vascular Vascular 2- da disease Disease 00:00: Medical 00 Group [...] Problem Active [place] body - Body - 2-26 da finger Finger 00:00: Medical 00 Group 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 00:00: Medi faye 00 Group 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 Hyperlipid 1-24 da emia emia 00:00: Medical 00 Group Anemia Anemia Problem Active [place] 124 da 00:00: Medical 00 Group Benign Benign Problem Active [place] essential Essential 1-24 da hypertensi Hypertensi 00:00: Me dical on on 00 Group Gastropare Gastropare Problem Active M [...] SYNCOPE/LO Diagnosis Active 2017-112018-11-11 Memoria W BP 2-24 01:16:00 l 00:00: [place] SYNCOPE/LO 00 W BP Active 11/10/2018 [place] ORTHOSTATI Diagnosis Active 2017-112018-11-12 Memoria C 01-11 15:46:00 l HYPOTENSIO 00:00: Saúl n N, NAZANIN, ORTHOSTATI 00 NEAR SYNCO C HYPOTENSIO N, NAZANIN, NEAR SYNCO Active 11/10/2018 [place] SBO Diagnosis Active 2018-06-12 Mem oria 7-16 21:48:00 l SBO 00:00: [place] 00 Active 06/02/2018 [place] PASSED Diagnosis Active 2015-112016-09-01 Mem oria OUT/STOPPE 0 13:43:00 l D PASSED 00:00: [place] BREATHING OUT/STOPPE 00 D BREATHING Active 09/01/2016 [place] SYNCOPE Diagnosis Active 2015-112016-09-14 Me moria 0 17:00:00 l SYNCOPE 00:00: [place] 00 Active 09/01/2016 [place] ABD PAIN Diagnosis Active 2014-112015-10-06 M emoria 1 13:20:00 l ABD PAIN 00:00: Saúl n 00 Active 10/05/2015 [place] WEAKNESS Diagnosis Active 2016-05-10 M emoria 06-11 06:43:00 l WEAKNESS 00:00: Saúl n 00 Active 06/11/2015 [place] WEAKNESS X Diagnosis Active 2016-05-10 Memoria 06-11 06:43:00 l WEAKNESS 00:00: Saúl n X 00 Active 06/11/2015 [place] SYNCOPE Diagnosis Active 2015-06-06 Me moria AND 05-16 22:03:00 l COLLAPSE, SYNCOPE 12:00: Herm allison PERITONEAL AND 00 ABSCESS COLLAPSE, PERITONEAL ABSCESS Active 05/16/2015 [place] 707.9 - Diagnosis Active 2015-06-24 Me moria CHRONIC 05-11 16:06:00 l SKIN UL 707.9 - 00:01: Saúl n CHRONIC 00 SKIN UL Active 05/11/2015 [facility] ABD PAIN Diagnosis Active 2016-05-11 M emoria UNSPCF,ESTUARDO 5-20 11:07:00 l KOCYTOSIS ABD PAIN 00:00: Her leonardo NOS,SEPTIC [facility],ESTUARDO 00 E KOCYTOSIS NOS,SEPTIC E Active 04/06/2015 [place] LOWER Diagnosis Active 2015-04-06 Mem oria ABDOMINAL 04-06 04:31:00 l PAIN LOWER 00:00: Gav[place] ABDOMINAL 00 PAIN Active 04/06/2015 [place] ABDMNAL Diagnosis Active 2015-04-09 Me moria PAIN 04-06 13:42:00 l UNSPCF, ABDMNAL 00:00: Saúl n LEUKOCYTOS PAIN 00 IS NOS, S UNSPCF, LEUKOCYTOS IS NOS, S Active 04/06/2015 [place] ABDOMINAL Diagnosis Active 2015-04-08 Memoria PAIN 03-28 22:12:00 l 00:00: Gav[place] ABDOMINAL 00 PAIN Active 03/28/2015 [place] Paroxysmal Problem 2018-12-22 M emoria atrial 14:06:11 l fibrillati Saúl n on Paroxysmal atrial fibrillati on 12/22/2018 [place] Hypertensi Problem 2018-12-22 M emoria ve urgency 14:06:11 l G[place] Hypertensi ve urgency 12/22/2018 [place] Enlarged Problem 2018-12-22 Mem oria prostate 14:06:11 l without Enlarged Ruby nn lower prostate urinary without tract lower symptoms urinary tract symptoms 12/22/2018 [place] 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:06:11 l sterolemia Pure Saúl n , hyperchole unspecifie sterolemia d , unspecifie d 12/22/2018 [place] Personal Problem 2018-12-22 Mem oria history of 14:06:11 l antineopla Personal He rmann stic history of chemothera antineopla py stic chemothera py 12/22/2018 [place] Orthostati Problem 2019-06-01 M emoria c 12:19:20 l hypotensio Saúl n n Orthostati c hypotensio n 06/01/2019 [place] Dehydratio Problem 2019-06-01 M emoria n 12:19:20 l [place] Dehydratio n 06/01/2019 [place] Personal Problem 2019-06-01 Mem oria history of 12:19:20 l other Personal Saúl n malignant history of neoplasm other of malignant bronchus neoplasm and lung of bronchus and lung 06/01/2019 [facility], [place] Unspecifie Problem 2019-06-01 M emoria d atrial 12:19:20 l fibrillati Saúl n on Unspecifie d atrial fibrillati on 06/01/2019 [facility] Essential Problem 2019-06-01 Me moria (primary) 12:19:20 l hypertensi Saúl n on Essential (primary) hypertensi on 06/01/2019 [facility], [place] Gastropare Problem 2019-06-01 M emoria sis 12:19:20 l Gav[place] Gastropare sis 06/01/2019 [facility] Personal Problem 2019-06-01 Mem oria history of 12:19:20 l peptic Personal Saúl n ulcer history of disease peptic ulcer disease 06/01/2019 [facility] Polyneurop Problem 2019-06-01 M emoria athy, 12:19:20 l unspecifie Saúl n d Polyneurop athy, unspecifie d 06/01/2019 [facility], [place] Personal Problem 2019-06-01 Mem oria history of 12:19:20 l other Personal Saúl n malignant history of neoplasm other of skin malignant neoplasm of skin 06/01/2019 [facility] Personal Problem 2019-06-01 Mem oria history of 12:19:20 l nicotine Personal Herm allison dependence history of nicotine dependence 06/01/2019 [facility], Joseph Anemia, Problem 2019-06-01 Desmond chitra unspecifie 12:19:20 l d Anemia, [place] unspecifie d 06/01/2019 [facility] Constipati Problem 2019-06-01 M emoria on, 12:19:20 l unspecifie Saúl n d Constipati on, unspecifie d 06/01/2019 [facility] intermediate Problem 2019-06-01 Me moria (current) 12:19:20 l use of Long Gavino anticoagul term ants (current) use of anticoagul ants 9 [facility] Atrial Problem Resolve 2020-07-03 Desmond chitra fibrillati d 22:43:08 l on Atrial [place] (disorder) fibrillati on (disorder) Resolved Problem 07/03/2020 [facility] [place],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 abdominal wall (disorder) Resolved Problem 07/03/2020 [facility] [place], [place], [facility], [place] Hypertensi Problem Resolve 2020-07-03 Memoria ve d 22:43:08 l disorder, Gav[place] systemic Hypertensi arterial ve (disorder) disorder, systemic arterial (disorder) Resolved Problem 07/03/2020 [facility] [place], [place], [facility], [place] Neuropathy Problem Resolve 2020-07-03 Memoria (disorder) d 22:43:08 l [place] Neuropathy (disorder) Resolved Problem 07/03/2020 [facility] [place], [place], [facility], [place] Malignant Problem Resolve 2020-07-03 M emoria neoplasm d 22:43:08 l of skin [place] (disorder) Malignant neoplasm of skin (disorder) Resolved Problem 07/03/2020 [facility] [place],[facility], [facility], [place] ABDMNAL Diagnosis Active 2016-05-11 Me moria PAIN 11:07:00 l UNSPCF ABDMNAL Gavino SITE PAIN UNSPCF SITE Active [place] LEUKOCYTOS Diagnosis Active 2016-05-11 Memoria IS NOS 11:07:00 l Gav[place] LEUKOCYTOS IS NOS Active [place] SEPTICEMIA Diagnosis Active 2016-05-11 Memoria NOS 11:07:00 l [place] SEPTICEMIA NOS Active [place] SYNCOPE Diagnosis Active 2015-06-06 Me moria AND 22:03:00 l COLLAPSE SYNCOPE Ruby nn AND COLLAPSE Active [place] PERITONEAL Diagnosis Active 2015-06-06 Memoria ABSCESS 22:03:00 l [place] PERITONEAL ABSCESS Active [place] ANEMIA NOS Diagnosis Active 2015-06-06 Memoria 22:03:00 l ANEMIA [place] NOS Active [place] MALAISE Diagnosis Active 2016-05-10 Me moria AND 06:43:00 l FATIGUE MALAISE Saúl n NEC AND FATIGUE NEC Active [place] OTHER Diagnosis Active 2015-10-06 Mem oria INTESTINAL 13:20:00 l OBSTRUCTIO OTHER Ruby nn N INTESTINAL OBSTRUCTIO N Active [place] ORTHOSTATI Diagnosis Active 2018-11-12 Memoria C 15:46:00 l HYPOTENSIO Saúl n N ORTHOSTATI C HYPOTENSIO N Active [facility] ACUTE Diagnosis Active 2018-11-12 Mem oria KIDNEY 15:46:00 l FAILURE, ACUTE [place] UNSPECIFIE KIDNEY D FAILURE, UNSPECIFIE D Active [facility] SYNCOPE Diagnosis Active 2018-11-12 Me moria AND 15:46:00 l COLLAPSE SYNCOPE Ruby nn AND COLLAPSE Active 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 carcinoma carcinoma st Lung Lung Disease Active [place] disease disease Methodi st History of Past Illness Condition Condition Condition Status Onset Resolution Last Treating Co mments Source Name Details Category Date Date Treatment Clinician Date Acute Problem 2019-06-01 2019-06-01 M emoria kidney 11-25 12:19:20 12:19:20 l failure, Acute 04:50: Gavino unspecifie kidney 08 d failure, unspecifie d 11/25/2018 06/01/2019 [place] Partial Problem 2018-12-22 2018-12-22 Memoria intestinal 06-13 14:06:11 14:06:11 l obstructio Partial 03:35: Her leonardo n, intestinal 01 unspecifie obstructio d as to n, cause unspecifie d as to cause 06/13/2018 12/22/2018 [place] Allergies, Adverse Reactions, Alerts Allergy Allergy Status Severity Reaction(s) Onset Inactive Treating Comm ents Source Name Type Date Date Clinician Hydralaz Propensi Active Itching [place] on ine ty to 7-13 Methodi adverse 00:00: st reaction 00 s to drug hydrALAZ hydrALAZ Active Memori a INE<sup> INE<sup> l 1</sup> 1</sup> [place] NKFA NKFA Active Memoria l [place] Social History Social Habit Start Date Stop Date Quantity Comments Source Sex Assigned At [facility] ethodist Social History 2018-11-11 2018-11-11 [place] umana 10:37:39 10:37:39 Tobacco use and 2018-06-13 2018-06-13 Never used [facility] ethodist exposure 00:00:00 00:00:00 Alcohol intake 2016-09-11 2016-09-[address] [facility] - 00:00:00 00:00:00 non-drinker of Medical Ce nter alcohol (finding) Smoking Status Start Date Stop Date Source Never smoker Cl marte Former smoker 2016-09-11 00:00:00 2016-09-11 00:00:00 [facility] Medications Ordered Filled Start Stop Current Ordering Indication Dosage Frequency Signature Comments Components Source Medication Medication Date Date Medication? Clinician (SIG) Name Name rivaroxaban 2017-11 Yes 20 mg, PO, Memoria 20 MG Oral 2-26 Daily, 0 l Tablet 20:53: Refill(s) Saúl n [Xarelto] 00 Benzocaine 2017-11 No Notes: Memor ia 0.1 MG/MG 2-26 (Same As: l Oral Gel 16:53: Maximum Saúl n [Anbesol] 00 Strength PM Orajel ) Nortriptyli 2017-11 No Notes: Desmond chitra ne 2-26 (Same l 03:00: as:Pamelor Gavino 00 , Aventyl) Finasteride 2017-11 No Notes: Desmond chitra 2-26 (Same as: l 03:00: Proscar) [place] 00 "Do Not Crush" Women of childbeari ng age should not touch or handle broken tablets ferrous 2017-11 No Notes: Memoria sulfate 2-25 Give with l 23:00: food. "Do Not Crush" Aluminum 2017-11 No Notes: Memoria Hydroxide / 2-25 (aluminum l Magnesium 18:21: hydroxide- He rmann Hydroxide / 00 magnesium Simethicone hyd-simeth icone 200-200-20 mg/5ml 30 ml ud GENESIS) Sucralfate 2017-11 No Notes: March emoria 2-25 interfere l 15:00: w/enteral [place] feeds - Take 1 hr before or 2 hr after antacids, dairy pdt, meals & minerals - On empty stomach. For patients unable to swallow tablet, dissolve in 10mL - 30mL of water or juice and stir before giving. (Same As: Carafate) Xarelto 2017-11 No 20 mg, Memoria 2-25 Route: PO, l 15:00: Drug form: Gav[place] 00 TAB, Daily, Dosing Weight 90.909, kg, Start date: 11/11/18 9:00:00 YOUTH ASSOCIATE, Duration: 30 day, Stop date: 12/10/18 9:00:00 YOUTH ASSOCIATE Prilosec 2017-11 No 40 mg, Memoria 2-25 Route: PO, l 15:00: Drug form: [place] DRC, BID, Dosing Weight 90.909, kg, Start date: 11/11/18 9:00:00 YOUTH ASSOCIATE, Duration: 30 day, Stop date: 12/10/18 17:00:00 YOUTH ASSOCIATE metoprolol 2017-11 No Notes: Memor ia extended 2-25 (Same as: l release 15:00: Toprol XL) Herm allison Do Not Crush lactobacill 2017-11 No Notes: Desmond chitra us 2-25 Same as l rhamnosus 15:00: Culturealla Carcamo ann GG gabapentin 2017-11 No Notes: Memor ia 2-25 (Same as: l 15:00: Neurontin) [place] Slow 2017-11 No 45 mg, 1 Memoria Release 2-25 tab, l Iron 45 mg 15:00: Route: PO, H ermann oral 00 Drug form: tablet, ERTAB, extended BID, release Dosing Weight 90.909, kg, Start date: 11/11/18 9:00:00 YOUTH ASSOCIATE, Duration: 30 day, Stop date: 12/10/18 17:00:00 YOUTH ASSOCIATE Vitamin B12 2017-11 No Notes: Desmond chitra 2-25 (Same As: l 15:00: Vitamin B12) Calcium 2017-11 No Notes: Memoria Carbonate 2-25 (Same As: l 1250 MG / 15:00: Vin-D, Herm allison Cholecalcif 00 OsCal-D, marah 200 Oyster UNT Oral Calcium) Tablet lactobacill 2017-11 No 1 tab, Desmond chitra us 2-25 Route: PO, l acidophilus 15:00: Drug Form: Gav[place] TAB, Dosing Weight 90.909, kg, Daily, Start date: 11/11/18 9:00:00 YOUTH ASSOCIATE, Duration: 30 day, Stop date: 12/10/18 9:00:00 YOUTH ASSOCIATE Azelastine 2017-11 No Notes: Memor ia hydrochlori 2-25 (azelastin l de 0.137 15:00: e 137 [place] MG/ACTUAT 00 microgram/ Metered inh 30 ml Dose Nasal nasal SPR) [place] Non-formu souleymane drug. Same As: Astelin) Protonix 2017-11 No Notes: Memoria 2-25 Tablet l 15:00: should not Gavino 00 be chewed or crushed. (Same as: Protonix) Meclizine 2017-11 No Notes: Memori a 2-25 (Same as: l 14:02: Antivert) [place] Clonidine 2017-11 No Notes: Memori a Hydrochlori 2-25 (Same As: l de 0.1 MG 14:02: Catapres) Her leonardo Oral Tablet 00 linaclotide 2017-11 Yes 290 Memori a 2-25 microgram, l 12:01: PO, Daily, [place] 00 PRN Constipati on, 0 Refill(s) Slow 2017-11 No 45 mg = 1 Memoria Release 2-25 tab, PO, l Iron 45 mg 11:58: BID, 0 Ruby nn oral 00 Refill(s) tablet, extended release Ibuprofen 2017-11 Yes 100.4 F, Mem oria 2-25 0 l 11:58: Refill(s) [place] 00 meclizine 2017-11 No 12.5 mg = Mem oria 12.5 mg 2-25 1 tab, PO, l oral tablet 11:58: TID, PRN He rmann 00 as needed for dizziness, # 60 tab, 0 Refill(s) Nortriptyli 2017-11 No 25 mg, PO, Memoria ne 2-25 Bedtime, 0 l 11:55: Refill(s) gabapentin 2017-11 No 1,200 mg, Me moria 2-25 PO, BID, 0 l 11:46: Refill(s) Hydrochloro 2017-11 Yes 1 tab, PO, Memoria thiazide 2-25 Daily, # l 12.5 MG / 11:46: 90 tab, 1 Her leonardo Olmesartan 00 Refill(s) medoxomil 40 MG Oral Tablet metoprolol 2017-11 No 25 mg = 1 Me moria 25 mg oral 2-25 tab, PO, l tablet, 10:29: BID, 0 Gavino extended 00 Refill(s) release rivaroxaban 2017-11 No 20 mg = 1 M emoria 20 MG Oral 2-25 tab, PO, l Tablet 10:29: Daily, # Gavino [Xarelto] 00 30 tab, 3 Refill(s) Morphine 2017-11 No Notes: Memoria 2-25 (Same l 09:55: as:MORPhin Gav[place] 00 e Sulfate) Acetaminoph 2017-11 No Notes: Desmond chitra en 325 MG / 2-25 (Same as: l Hydrocodone 09:55: [place] Ruby nn Bitartrate 00 325/5) Do 5 MG Oral not exceed Tablet 4gm/day of [[place] acetaminop 5/325] hen. Sodium 2017-11 No 1,000 mL, Memori a Chloride 2-25 Rate: 100 l 0.9% IV 09:55: ml/hr, [place] 1,000 mL 00 Infuse over: 10 hr, Route: IV, Dosing Weight 90.909 kg, Total Volume: 1,000, Start date: 11/11/18 3:55:00 YOUTH ASSOCIATE, Duration: 30 day, Stop date: 12/11/18 3:54:00 YOUTH ASSOCIATE, 2.19, m2 Ondansetron 2017-11 No Notes: Desmond chitra 2-25 (Same as: l 09:55: Zofran) [place] 00 MEDICATION WASTE Product Size: 4 mg Product Wasted: ___ mg Glucagon 2017-11 No 1 mg, Memoria 2-25 Route: IM, l 09:55: Drug form: Gavino 00 PDR/INJ, PRN, Dosing Weight 90.909, kg, PRN Blood Glucose Results, Start date: 11/11/18 3:55:00 YOUTH ASSOCIATE, Duration: 30 day, Stop date: 12/11/18 3:54:00 YOUTH ASSOCIATE Dextrose 2017-11 No 25 gm, 50 Desmond chitra 50% Syringe 2-25 mL, Route: l 09:55: IVP, Drug Gavino 00 Form: INJ, Dosing Weight 90.909, kg, PRN, PRN Blood Glucose Results, Start date: 11/11/18 3:55:00 YOUTH ASSOCIATE, Duration: 30 day, Stop date: 12/11/18 3:54:00 YOUTH ASSOCIATE Saline 2017-11 No Notes: Memoria Flush 0.9% 2-25 (Same as: l 05:49: BD [place] 00 Posiflush) Sodium 2017-11 No 1,000 mL, Memori a Chloride 2-25 Infuse l 0.9% 05:49: Over: 1 [place] (Bolus) IV 00 hr, Route: IV, ONCE, Priority: STAT, Dosing Weight 90.909 kg, Start date: 11/10/18 23:49:00 YOUTH ASSOCIATE, Stop date: 11/10/18 23:49:00 YOUTH ASSOCIATE Sodium 2017- No 1,000 mL, Memori a Chloride 2-25 1,000 l 0.9% 05:45: ml/hr, Gavino (Bolus) IV 00 Infuse Over: 1 hr, Route: IV, ONCE, Priority: STAT, Dosing Weight 90.909 kg, Start date: 11/10/18 23:45:00 YOUTH ASSOCIATE, Stop date: 11/10/18 23:45:00 YOUTH ASSOCIATE Fentanyl 2017- No 50 Memoria 2-25 microgram, l 05:45: Route: [place] 00 IVP, ONCE, Dosing Weight 90.909, kg, Priority: STAT, Start date: 11/10/18 23:45:00 YOUTH ASSOCIATE, Stop date: 11/10/18 23:45:00 YOUTH ASSOCIATE clonIDINE Yes clonidine Ammonrandy berry (CATAPRES) 06-13 HCl 0.1 mg Met hodi 0.1 MG 09:39: tablet st tablet 26 Take 1 tablet twice a day by oral route as needed. dronabinol Yes dronabinol H rudolph (MARINOL) 06-13 2.5 mg Methodi 2.5 MG 09:39: capsule st capsule 26 Take 1 capsule every day by oral route for 90 days. finasteride Yes finasterid [place] (PROSCAR) 5 06-13 e 5 mg Method i mg tablet 09:39: tablet st 26 Take 1 tablet every day by oral route for 90 days. flecainide Yes flecainide H rudolph (TAMBOCOR) 06-13 150 mg Methodi 150 MG 09:39: tablet st tablet 26 Take 1/2 tablet once a day by oral route for 90 days fludrocorti Yes fludrocort [facility] 06-13 isone 0.1 Methodi (FLORINEF) 09:39: mg tablet st 0.1 mg 26 Take 1 tablet tablet every day by oral route for 90 days furosemide Yes furosemide H [place] (LASIX) 40 06-13 40 mg Methodi mg tablet 09:39: tablet st 26 TAKE 1 TABLET BY MOUTH DAILY gabapentin 2017- Yes gabapentin H oujamal (NEURONTIN) 06-13 600 mg Method i 600 mg 09:39: tablet st tablet 26 Take 2 tablets 3 times a day by oral route for 90 days. HYDROcodone 2017- Yes hydrocodon Cl -acetaminop 06-13 e 7.5 Methodi hen (NORCO) 09:39: mg-acetami st 7.5-325 mg 26 nophen 325 per tablet mg tablet Take 1 tablet every day by oral route for 30 days. linaclotide Yes Linzess Ammon ston (LINZESS) 06-13 290 mcg Methodi 290 mcg 09:39: capsule st capsule 26 Take 1 capsule every day by oral route for 90 days. metoprolol Yes metoprolol H rudolph succinate 06-13 succinate Metho di XL 09:39: ER [address] (TOPROL-XL) 26 tablet,ext 50 mg 24 hr ended tablet release 24 hr Take 1 tablet every day by oral route for 90 days. sucralfate Yes sucralfate H [place] (CARAFATE) 06-13 1 gram Methodi 1 gram 09:39: tablet st tablet 26 tamsulosin Yes tamsulosin H rud[place] (FLOMAX) 06-13 0.4 mg Methodi 0.4 mg 09:39: capsule st capsule,ext 26 Take 1 ended capsule release every day 24hr by oral route for 90 days. valsartan Yes valsartan Ammon stoclarisa (DIOVAN) 06-13 320 mg Methodi 320 MG 09:39: tablet st tablet 26 Take 1 tablet every day by oral route for 90 days. zolpidem Yes zolpidem [place] (AMBIEN) 10 06-13 10 mg Methodi mg tablet 09:39: tablet st 26 Take 1 tablet every day by oral route for 30 days. potassium 2017- Yes Klor-Con [place] chloride 06-13 M20 mEq Methodi (KLOR-CON 09:39: tablet,ext st M20) 20 MEQ 26 ended CR tablet release Take 1 tablet every day by oral route for 90 days. rivaroxaban Yes 20mg Take 20 mg Cl (XARELTO) 7-27 by mouth. Metho di 20 mg 09:39: st tablet 26 omeprazole Yes 40mg QD Take 40 mg [place] (PriLOSEC) 7-27 by mouth Metho di 40 MG 09:39: daily. st capsule 26 cyanocobala Yes 1000ug QD Take 1,000 [place] min 7-27 mcg by Methodi (VITAMIN 09:39: mouth st B-12) 1000 26 daily. MCG tablet calcium Yes 1{tbl} QD Chew 1 [place] [...] mouth st tablet 26 daily with breakfast. amLODIPine Yes amlodipine [place] (NORVASC) 5 7-27 5 mg Methodi mg tablet 09:39: tablet st 26 azelastine Yes azelastine [place] (ASTELIN) 7-27 137 mcg Methodi 137 mcg 09:39: (0.1 %) st (0.1 %) 26 nasal nasal spray spray aerosol Amlodipine No Notes: Memor ia 06-04 (Same as: l 18:34: Norvasc) [place] 00 Docusate No Notes: Memoria Sodium 100 06-04 (Same as: l MG Oral 15:31: Colace) [place] Capsule 00 (Do Not [Colace] Crush) Fludrocorti No Notes: Desmond chitra sone 18 (Same as: l 14:00: Florinef [place] 00 Acetate) Give with food. Finasteride No Notes: Desmond chitra -18 (Same as: l 14:00: Proscar) [place] "Do Not Crush" Women of childbeari ng age should not touch or handle broken tablets ferrous No Notes: Memoria sulfate 18 Give with l 14:00: food. "Do Gav[place] 00 Not Crush" Vitamin B12 No Notes: Desmond chitra 06-04 (Same As: l 14:00: Vitamin [place] 00 B-12) Flecainide No Notes: Memor ia 06-04 (Same as: l 02:00: Tambocor) tamsulosin No Notes: Memor ia 18 (Same As: l 02:00: Flomax) Gav[place] 00 "Do Not Crush" Protonix No Notes: Memoria 7-17 Tablet l 22:00: should not be chewed or crushed. (Same as: Protonix) Prilosec No 40 mg, Memoria -17 Route: PO, l 22:00: Drug form: Gav[place] 00 DRC, BID, Dosing Weight 87.727, kg, Start date: 06/03/18 17:00:00 CDT, Duration: 30 day, Stop date: 07/03/18 9:00:00 CDT 24 HR No Notes: Memoria Metoprolol 06-03 (Same as: l Tartrate 50 19:00: Toprol XL) [place] MG Extended March split Release tab, but Tablet do not [Toprol] crush. valsartan No Notes: Memori a 06-03 Same as l 19:00: Diovan gabapentin No Notes: Memor ia 400 MG Oral 06-03 (Same as: l Capsule 18:00: Neurontin) Herm allison [Neurontin] 00 Sucralfate No Notes: March emoria 06-03 interfere l 18:00: w/enteral Gavino 00 feeds - Take 1 hr before or 2 hr after antacids, dairy pdt, meals & minerals - On empty stomach. For patients unable to swallow tablet, dissolve in 10mL - 30mL of water or juice and stir before giving. (Same As: Carafate) Clonidine No Notes: Memori a Hydrochlori 06-03 (Same As: l de 0.1 MG 17:55: Catapres) Her leonardo Oral Tablet 00 Amlodipine No Notes: Memor ia 17 (Same as: l 17:55: Norvasc) zolpidem 2018-0 No Notes: Memoria 7-17 (Same As: l [...] Potassium No 40 mEq, Memor ia Chloride 06-02 Route: IV, l 20:45: ONCE, Dosing Weight 87.727, kg, Start date: 06/02/18 15:45:00 CDT, Stop date: 06/02/18 15:45:00 CDT finasteride No 5 mg = 1 Me moria 5 mg oral 7-16 tab, PO, l tablet 20:30: Bedtime, # Ruby nn 00 30 tab, 0 Refill(s) Probiotic Yes 1 cap, PO, Me moria Formula 7-16 Daily, 0 l 20:30: Refill(s) Calcium No 1 tab, Memoria 500+D 7-16 CHEW, BID, l 20:30: 0 [place] 00 Refill(s) ferrous No 325 mg = 1 Desmond chitra sulfate 325 7-16 tab, PO, l MG Oral 20:30: Daily, 0 Saúl n Tablet 00 Refill(s) Amlodipine Yes 5 mg, PO, Me moria 7-16 PRN, 0 l 20:30: Refill(s) Clonidine No 0.1 mg = 1 Me moria Hydrochlori 7-16 tab, PO, l de 0.1 MG 20:30: BID, PRN Herm allison Oral Tablet 00 Hypertensi on, 0 Refill(s) valsartan No 320 mg = 1 Me moria 320 mg oral 7-16 tab, PO, l tablet 20:30: Daily, # [place] 00 30 tab, 0 Refill(s) Enoxaparin No Notes: Memor ia 7-16 (Same as: l 14:00: Lovenox) phenol No Notes: Memoria 7-16 Chlorasept l 13:26: ic [place] (Same as: Chlorasept ic, Sore Throat [place]) WASTE: F/P - Black; E - Municipal Trash Bin Saline No Notes: Memoria Flush 0.9% 16 (Same as: l 13:09: BD Posiflush) Morphine No 2 mg, 1 Memori a 7-16 mL, Route: l 13:09: IVP, Drug form: SOLN, Q4H, Dosing Weight 87.727, kg, PRN Pain Score 7-10, Start date: 06/02/18 8:09:00 CDT, Duration: 30 day, Stop date: 07/02/18 8:08:00 CDT Ondansetron No Notes: Desmond chitra -16 (Same as: l 13:09: Zofran) MEDICATION WASTE Product Size: 4 mg Product Wasted: ___ mg Sodium No 1,000 mL, Memori a Chloride -16 Rate: 100 l 0.9% IV 13:09: ml/hr, [place] 1,000 mL 00 Infuse over: 10 hr, Route: IV, Dosing Weight 87.727 kg, Total Volume: 1,000, Start date: 06/02/18 8:09:00 CDT, Duration: 30 day, Stop date: 07/02/18 8:08:00 CDT, 2.15, m2 potassium Yes 2 pack, Memor ia phosphate-s 5-27 PO, BID, l odium 19:06: OK to [place] phosphate 00 substitute 250 mg-280 for any mg-160 mg equivalent oral powder oral for phosphorus reconstitut replacemen ion t (tab or powder form), # 100 ea, 0 Refill(s) Lactulose Yes 10 gm = 15 Me moria 667 MG/ML 5-27 mL, PO, l Oral 18:58: BID, PRN [place] Solution 00 as needed for constipati on, X 14 day, # 1 btl, 0 Refill(s) gabapentin Yes 800 mg = 2 M emoria 400 MG Oral 5-27 cap, PO, l Capsule 18:58: TID, # 180 Herm allison [Neurontin] 00 caplet, 0 Refill(s) Labetalol No 20 mg, 4 Desmond chitra 5-27 mL, Route: l 17:00: IVP, Drug [place] form: INJ, Q6H, Dosing Weight 86.364, kg, Start date: 04/13/18 12:00:00 CDT, Duration: 30 day, Stop date: 05/13/18 6:00:00 CDT Acetaminoph No Notes: Desmond chitra en 325 MG / 5-27 (Same as: l Hydrocodone 14:26: [place] Ruby nn Bitartrate 00 325/5) Do 5 MG Oral not exceed Tablet 4gm/day of [[place] acetaminop 5/325] hen. Cardizem CD No Notes: Desmond chitra 5-27 (Same as: l 14:00: Cardizem [place] 00 CD) Do Not Crush Before meals. tamsulosin No Notes: Memor ia 5-27 (Same As: l 02:00: Flomax) [place] "Do Not Crush" Lactulose No Notes: Memori a 667 MG/ML 5-26 (Same l Oral 20:00: as:Chronul [place] Solution 00 ac) gabapentin No Notes: Memor ia 800 MG Oral 5-26 (Same as: l Tablet 18:00: Neurontin) Ruby nn [Neurontin] 00 Sucralfate No Notes: May M emoria 5-26 interfere l 18:00: w/enteral [place] 00 feeds - Take 1 hr before or 2 hr after antacids, dairy pdt, meals & minerals - On empty stomach. For patients unable to swallow tablet, dissolve in 10mL - 30mL of water or juice and stir before giving. (Same As: Carafate) Dulcolax 2017- No Notes: Memoria Laxative 5-26 (Same As: l 17:57: Dulcolax, [place] 00 Bisco-Lax) Prilosec 2017- No 40 mg, Memoria 5-26 Route: PO, l 14:00: Drug form: Gav[place] 00 DRC, BID, Dosing Weight 86.364, kg, Start date: 04/12/18 9:00:00 CDT, Duration: 30 day, Stop date: 05/11/18 17:00:00 CDT Fludrocorti No Notes: Desmond chitra sone 5-26 (Same as: l 14:00: Florinef [place] 00 Acetate) Give with food. Azelastine No 137 Memoria hydrochlori 5-26 microgram, l de 0.137 14:00: 1 spray, Ruby nn MG/ACTUAT 00 Route: Metered NASAL, Dose Nasal Drug Form: [place] SPRY, Dosing Weight 86.364, kg, BID, Start [...] allison 00 30 cap, 0 Refill(s) Protonix 2017- No Notes: Memoria 5-26 Tablet l 12:30: should not [place] 00 be chewed or crushed. (Same as: Protonix) Zolpidem 2017-0 Yes 10 mg = 1 Desmond chitra tartrate 10 5-26 tab, PO, l MG Oral 09:20: Bedtime, Saúl n Tablet 00 PRN for [Ambien] sleep, 0 Refill(s) Docusate 2017- Yes 240 mg, Memori a 5-26 PO, [...] annabinol 5-26 Instructio l 09:07: ns, 2.4mg Gavino 1 tablet at bedtime, 0 Refill(s) sucralfate [...] tab, PO, l tablet 09:01: Daily, # [place] 00 90 tab, 0 Refill(s) Hydralazine No Notes: Desmond chitra 5-26 (Same as: l 06:29: Apresoline [place] ) Push over 5 minutes Trazodone No Notes: Memori a Hydrochlori 5-26 (Same As: l de 50 MG 02:00: Desyrel) Ruby nn Oral Tablet 00 Flecainide No Notes: Memor ia 5-26 (Same as: l 02:00: Tambocor) [place] Simethicone No Notes: Desmond chitra 5-26 (Same as: l 02:00: Mylicon) Gav[place] 00 Tessalon No Notes: Memoria Perles 5-26 (Same As: l 02:00: Tessalon [place] 00 Perles) "Do Not Crush" Bisacodyl No Notes: Memori a 5-26 (Same As: l 02:00: Dulcolax, Gav[place] Bisco-Lax) Diphenhydra No Notes: Desmond chitra mine 5-26 (Same as: l 02:00: Benadryl) [place] 00 Ondansetron No Notes: Desmond chitra 5-26 (Same as: l 02:00: Zofran) [place] 00 MEDICATION WASTE Product Size: 4 mg Product Wasted: ___ mg Saline No Notes: Memoria Flush 0.9% 5-26 (Same as: l 02:00: BD [place] Posiflush) Hydrocortis No Notes: Desmond chitra one -26 (Same as: l 02:00: Solu-MARTINA Gav[place] 00 F) Streptococc No 0.5 mL, Mem oria us 5-26 Route: IM, l pneumoniae 00:34: ONCALL, Herm allison serotype 1 29 Start capsular date: antigen 04/11/18 diphtheria 19:34:29 [id number] CDT, Stop protein date: conjugate 05/11/18 vaccine / 19:29:29 Streptococc CDT us pneumoniae serotype 14 capsular antigen diphtheria [id number] protein conjugate vaccine / Streptococc us pneumoniae serotype 18C capsular antigen d Saline No Notes: Memoria Flush 0.9% 5-25 (Same as: l 23:13: BD [place] Posiflush) Saline No Notes: Memoria Flush 0.9% 5-25 (Same as: l 23:09: BD [place] Posiflush) Sodium No 1,000 mL, Memori a Chloride 5-25 Rate: 125 l 0.9% IV 23:09: ml/hr, [place] 1,000 mL 00 Infuse over: 8 hr, Route: IV, Dosing Weight 91.108 kg, Total Volume: 1,000, Start date: 04/11/18 18:09:00 CDT, Duration: 30 day, Stop date: 05/11/18 18:08:00 CDT, 2.19, m2 Ondansetron No Notes: Desmond chtira 5-25 (Same as: l 23:09: Zofran) MEDICATION WASTE Product Size: 4 mg Product Wasted: ___ mg Acetaminoph No Notes: Do M emoria en 5-25 not exceed l 23:09: 4 gm/day. (Same as: Tylenol) Sodium No 500 mL, Memoria Chloride 5-25 Infuse l 0.9% 20:32: Over: 1 G[place] (Bolus) IV 00 hr, Route: IV, ONCE, Priority: STAT, Dosing Weight 91.108 kg, Start date: 04/11/18 15:32:00 CDT, Stop date: 04/11/18 15:32:00 CDT Sodium No 1,000 mL, Memori a Chloride 5-25 Rate: 100 l 0.9% IV 20:32: ml/hr, [place] 1,000 mL 00 Infuse over: 10 hr, Route: IV, Dosing Weight 91.108 kg, Total Volume: 1,000, Start date: 04/11/18 15:32:00 CDT, Duration: 30 day, Stop date: 05/11/18 15:31:00 CDT, 2.19, m2 Saline No Notes: Memoria Flush 0.9% 5-25 (Same as: l 19:49: BD Posiflush) lisinopril 2015-11 Yes 10mg Q.5D Take [address] [facility] (PRINIVIL,Z 0-24 by mouth 2 Janiya kes - ESTRIL) 10 11:52: (two) Medica l MG tablet 49 times Center daily . omeprazole 2015-11 Yes 40mg Q.5D Take [address] [facility] (PRILOSEC) 0-24 by mouth 2 Dennis es - 40 MG 11:52: (two) Medical capsule 49 times Center daily . temazepam 2015-11 Yes 15mg Take [address] [facility] (RESTORIL) 0-24 by mouth [facility] - 15 mg 11:52: every Medical capsule 49 night as Center needed for Sleep. diltiazem 2015-11 Yes 120mg Q.25D Take [address] [facility] [address] [facility] (CARDIZEM) 0-24 mg by [facility] - 120 MG 11:52: mouth 4 Medical tablet 49 (four) Center times daily. oxybutynin 2015-11 Yes 5mg Take [address] [facility] (DITROPAN) 0-24 by mouth [facility] - 5 MG tablet 11:52: once. Medic al 49 Center rivaroxaban 2015-11 Yes Take by [facility] (XARELTO) 0-24 mouth. [facility] - 15 mg Tab 11:52: Medical tablet 49 Center flecainide 2015-11 Yes 150mg Q.5D Take [address] [facility] [address] [facility] (TAMBOCOR) 0-24 mg by [facility] - 150 MG 11:52: mouth 2 Medical tablet 49 (two) Center times daily. fludrocorti 2015-11 Yes .1mg QD Take 0.[address] [facility] [address] [facility] sone 0-24 mg by [facility] - (FLORINEF) 11:52: mouth Medica l 0.1 mg 49 daily. Center tablet gabapentin 2015-11 Yes 600mg Q.5D Take [address] (NEURONTIN) 0-24 mg by [facility] - 600 MG 11:52: mouth 2 Medical tablet 49 (two) Center times daily . HYDROcodone 2015-11 Yes 1{tbl} Take [address] [facility] [address] [facility] -acetaminop 0-24 tablet by Dennis duron (NORCO 11:52: mouth Medica l 7.5-325) 49 every 6 Center 7.5-325 mg (six) per tablet hours as needed for Pain. rivaroxaban 2015-11 Yes 15 mg = 1 [...] Memoria 0-19 (Same as: l 14:00: Xarelto) Gav[place] 00 Administer with food potassium 2015-11 No Notes: Memori a chloride 0-19 (Same as: l 00:14: KCL) Gavino 00 Infuse no faster than 10 mEq/hr if given peripheral ly. sodium 2015-11 No 30 mmol, Memoria phosphate + 0-19 10 mL, l sodium 00:14: Route: [place] chloride 00 IVPB, PRN, 0.9% INJ Dosing 250 mL Weight 84.091, kg, PRN Abnormal Lab Result, Start date: 09/04/16 19:14:00 CDT, Duration: 30 day, Stop date: 10/04/16 18:13:00 YOUTH ASSOCIATE, FOR ICU USE ONLY potassium 2015-11 No Notes: Memori a phosphate + 0-19 (Same as: l sodium 00:14: K [place] chloride 00 Phosphate. 0.9% INJ ) 1 mMol 250 mL phoshate has 1.47 mEq potassium Infuse over 4 hours Magnesium 2015-11 No Notes: Memori a Oxide 0-19 (Same as: l 00:14: Mag-Ox [place] 00 400) Magnesium oxide [id number] g elemental magnesium Dose=____m g magnesium oxide (___mg elemental magnesium) Calcium 2015-11 No Notes: Memoria Gluconate 0-19 WASTE: F/P l 00:14: - Sink; E Gav[place] 00 - Municipal Trash Bin Calcium 2015-11 No Notes: Memoria Carbonate 0-19 (Same As: l 500 MG 00:14: Tums) [place] Chewable 00 Calcium Tablet Carbonate 500 mg = 200 mg elemental calcium Dose = mg calcium carbonate ( mg elemental calcium) Magnesium 2015-11 No Notes: Memori a Sulfate 0-19 WASTE: F/P l 00:14: - Sink; E G[place] 00 - Municipal Trash Bin potassium 2015-11 No Notes: Memori a phosphate-s 0-19 (Same as: l odium 00:14: Phos-NaK) [place] phosphate 00 Each 1.5 250 mg-280 gm pkt has mg-160 mg 250mg oral powder phosphorou for s. Mix reconstitut w/2.5oz ion water and stir. Glucagon 2015-11 No 1 mg, Memoria 0-19 Route: IM, l 00:12: Drug form: Gav[place] 00 PDR/INJ, PRN, Dosing Weight 84.091, kg, PRN Blood Glucose Results, Start date: 09/04/16 19:12:00 CDT, Duration: 30 day, Stop date: 10/04/16 18:11:00 YOUTH ASSOCIATE Dextrose 2015-11 No 12.5 gm, Memor ia 50% Syringe 0-19 25 mL, l 00:12: Route: G[place] 00 IVP, Drug Form: INJ, Dosing Weight 84.091, kg, PRN, PRN Blood Glucose Results, Start date: 09/04/16 19:12:00 CDT, Duration: 30 day, Stop date: 10/04/16 18:11:00 YOUTH ASSOCIATE Insulin, 2015-11 No Notes: Memoria Aspart, 0-19 Roll in l Human 00:12: palms of Gavino 00 hands gently; Do [...] Duration: 30 day, Stop date: 10/04/16 14:54:00 YOUTH ASSOCIATE Diltiazem 2015-11 No Notes: Memori a 0-18 (Same as: l 18:18: Cardizem) [place] 00 Lactulose 2015-11 No Notes: Memori a 0-18 (Same l 14:00: as:Chronul [place] 00 ac) sodium 2015-11 No 1,000 mL, Memori a chloride 0-18 Rate: 100 l 0.9% 1000 05:27: ml/hr, Saúl n ml INJ 00 Infuse 1,000 mL over: 10 hr, Route: IV, Dosing Weight 84.091 kg, Total Volume: 1,000, Start date: 09/04/16 0:27:00 CDT, Duration: 30 day, Stop date: 10/04/16 0:26:00 YOUTH ASSOCIATE Lisinopril 2015-11 No Notes: Memor ia 0-18 (Same as: l 02:00: Prinivil, Zestril) Lactulose 2015-11 No Notes: Memori a 0-18 (Same l 00:02: as:Chronul [place] 00 ac) Sodium 2015-11 No 500 mL, Memoria [...] Duration: 30 day, Stop date: 10/03/16 12:38:00 YOUTH ASSOCIATE Hydralazine 2015-11 No 10 mg, Desmond chitra 0-17 Route: IV, l 16:52: ONCE, Dosing Weight 84.091, kg, Priority: NOW, Start date: 09/03/16 11:52:00 CDT, Stop date: 09/03/16 11:52:00 CDT Fleet Enema 2015-11 No 133 mL, Mem oria 0-17 Route: LA, l 15:12: Drug Form: OPAL, Dosing Weight 84.091, kg, ONCE, Start date: 09/03/16 10:12:00 CDT, Stop date: 09/03/16 10:12:00 CDT Hydralazine 2015-11 No Notes: Desmond chitra 0-17 (Same as: l 07:36: Apresoline [place] 00 ) Push over 5 minutes oxybutynin [...] l 30 MG 15:48: BID, # 30 [place] Extended 00 tab, 0 Release Refill(s) Tablet [...] sone 0-16 (Same as: l 14:00: Florinef G[place] 00 Acetate) Give with food. pantoprazol 2015-11 No Notes: Desmond chitra e 0-16 Tablet l 14:00: should not Gav[place] 00 be chewed or crushed. (Same as: Protonix) oxybutynin 2015-11 No Notes: Memor ia 0-16 Same as: l 14:00: Ditropan) Gav[place] 00 24 HR 2015-11 No Notes: Memoria Nifedipine 0-16 (Same as: l 30 MG 14:00: Procardia [place] Extended 00 XL) "Do Release Not Crush" Tablet "Avoid grapefruit and grapefruit juice" Lisinopril 2015-11 No Notes: Memor ia 0-16 (Same as: l 14:00: Prinivil, G[place] 00 Zestril) Bisacodyl 2015-11 No Notes: Memori a 0-16 (Same As: l 14:00: Dulcolax, [place] 00 Correctol) (Do Not Crush) "Do Not Crush" azelastine 2015-11 Yes 1 spray, Mem oria nasal 0.1% 0-16 NASAL, l (137 03:00: BID, 0 [place] mcg/inh) 00 Refill(s) spray oxybutynin 2015-11 No [...] PO, l 60 MG 02:50: Daily, # [place] Extended 00 30 tab, 0 Release Refill(s) Tablet Acetaminoph 2015-11 No Notes: Desmond chitra en 325 MG / 0-16 Same as l Hydrocodone 02:18: [place] Ruby nn Bitartrate 00 325-7.5mg 7.5 MG Oral Do not Tablet exceed 4gm/day of acetaminop hen. Flecainide 2015-11 No Notes: Memor ia 0-16 (Same as: l 02:00: Tambocor) G[place] 00 Saline 2015-11 No Notes: Memoria Flush 0.9% 0-16 (Same as: l 02:00: BD Gav[place] 00 Posiflush) docusate 2015-11 No Notes: Memoria sodium 100 0-16 (Same as: l mg oral 02:00: Colace) Gav[place] capsule 00 (Do Not Crush) gabapentin 2015-11 [...] Duration: 30 day, Stop date: 10/01/16 9:00:00 YOUTH ASSOCIATE Acetaminoph 2015-11 No Notes: Desmond chitra en 325 MG / 0-15 (Same as: l Hydrocodone 21:56: [place] Ruby nn Bitartrate 00 325/5) Do 5 MG Oral not exceed Tablet 4gm/day of [[place] acetaminop 5/325] hen. Saline 2015-11 No Notes: Memoria Flush 0.9% 0-15 (Same as: l 20:22: BD [place] 00 Posiflush) tramadol 2015-11 No Notes: Not Mem oria hydrochlori 0-15 to exceed l de 50 MG 20:11: 400mg/day. Her leonardo Oral Tablet 00 (Same As: Ultram) Saline 2015-11 No Notes: Memoria Flush 0.9% 0-15 (Same as: l 17:05: BD [place] 00 Posiflush) remove 2014-11 No Notes: Memoria patch 1-25 Remove old l 07:00: patch Gavnio 00 before applicatio n of new patch. Magnesium 2014-11 No 2 gm, 50 Desmond chitra Sulfate 1-24 mL, Route: l 16:35: IVPB, Drug Gav[place] 00 form: INJ, ONCE, Dosing Weight 79.716, kg, Total dose = 2 gm, Start date: 10/11/15 10:35:00, Duration: 1 doses or times, Stop date: 10/11/15 10:35:00 Protonix 2014-11 No Notes: Memoria 1-24 Tablet l 15:00: should not G[place] 00 be chewed or crushed. (Same as: Protonix) gabapentin 2014-11 No Notes: Memor ia 1-24 (Same as: l 03:00: Neurontin) [place] 00 gabapentin 2014-11 No 300 mg, 1 Me moria 300 MG Oral 1-24 cap, l Capsule 03:00: Route: PO, Herm allison 00 Daily, Dosing Weight 79.716, kg, Start date: 10/10/15 21:00:00, Duration: 30 day, Stop date: 11/09/15 9:00:00 Flecainide 2014-11 No Notes: Memor ia 1-23 (Same as: l 15:00: Tambocor) [place] 00 Lisinopril 2014-11 No Notes: Memor ia 12-10 (Same as: l 15:00: Prinivil, Gav[place] 00 Zestril) Magnesium 2014-11 No Notes: Memori a Oxide 12-10 (Same as: l 15:00: Mag-Ox [place] 00 400) Magnesium oxide [id number] g elemental magnesium Dose=____m g magnesium oxide (___mg elemental magnesium) Acetaminoph 2014-11 No Notes: Do M emoria en 325 MG / 12-10 not exceed l Hydrocodone 04:02: 4gm/day of Gav[place] Bitartrate acetaminop 10 MG Oral hen. Tablet (Same as: [[place] 10] 325/10) Lisinopril 2014-11 No Notes: Memor ia 12-09 (Same as: l 23:20: Prinivil, [place] Zestril) Magnesium 2014-11 No 2 gm, 50 Desmond chitra Sulfate 1-21 mL, Route: l 22:00: IVPB, Drug form: INJ, Q2H, Dosing Weight 79.716, kg, Total dose = 4 gm, Start date: 10/08/15 16:00:00, Duration: 2 doses or times, Stop date: 10/08/15 18:00:00 Dilaudid 2014-11 No Notes: Memoria - (Same as: l 21:46: Dilaudid) phenol 2014-11 No Notes: Memoria - Chlorasept l 20:44: ic [place] (Same as: Chlorasept ic, Sore Throat [place]) Dilaudid 2014-11 No Notes: Memoria -21 (Same as: l 19:45: Dilaudid) Diphenhydra 2014-11 No Notes: Desmond chitra mine 12-08 (Same as: l 04:45: Benadryl) Temazepam 2014-11 No Notes: Memori a - (Same As: l 04:41: Restoril) Amino Acids 2014-11 No Notes: Desmond chitra 4.25% with 12-08 Same as: l 5% Dextrose 03:00: ClinimixE H ermann and 00 Electrolyte s (Clinimix E Sulfite-[place] e) 1000 mL Hydromorpho 2014-11 No Notes: Desmond chitra ne 1-20 (Same as: l 19:07: Dilaudid) ketOROLAC 2014-11 No 4 days Memor ia 30 mg/mL -20 l injectable 19:07: MEDICATION H ermann solution [...] Phenergan 2014-11 No Notes: Do Mem oria 1-19 not give l 20:50: IV push. (Same as: Phenergan) Clinimix E 2014-11 No 1,000 mL, Me moria Sulfite-[place] -19 Rate: 75 l e 4.25% 20:49: ml/hr, Gavino with 5% 00 Infuse Dextrose over: 13.3 [...] tab, PO, Memoria en 325 MG / -19 Q6H, PRN l Hydrocodone 18:21: Pain, # 28 [place] Bitartrate 00 tab, 0 7.5 MG Oral Refill(s) Tablet lisinopril 2014-11 Yes 20 mg = 2 Me moria 10 mg oral 1-19 tab, PO, l tablet 18:21: Daily, # [place] 00 90 tab, 1 Refill(s) fludrocorti 2014-11 Yes 0.1 mg = 1 Memoria sone 0.1 mg 1-19 tab, PO, l oral tablet 18:21: Daily, # He rmann 00 30 tab, 3 Refill(s) potassium 2014-11 No Notes: Memori a chloride - Infuse at l 18:00: a rate of [place] 00 10 mEq/hr. (Same as: KCL) Morphine 2014-11 No Notes: Memoria - (Same l 17:03: as:MORPhin [place] 00 e Sulfate) Hydralazine 2014-11 No Notes: Desmond chitra 12-06 (Same as: l 17:01: Apresoline Gavino 00 ) Push over 5 minutes potassium 2014-11 No 20 mEq, Memor ia chloride 12-06 Route: IV, l 16:45: ONCE, [place] 00 Dosing Weight 79.716, kg, Start date: 10/06/15 10:45:00, Stop date: 10/06/15 10:45:00 Protonix 2014-11 No Notes: For Mem oria -19 IV push l 15:00: reconstitu Gavino 00 te with 10 ml 0.9% sodium chloride and push over 2 minutes. (Same as: Protonix) Zofran 2014-11 No Notes: Memoria - (Same as: l 07:09: Zofran) [place] 00 MEDICATION WASTE Product Size: 4 mg Product Wasted: ___ mg Morphine 2014-11 No Notes: Memoria - (Same l 07:08: as:MORPhin [place] 00 e Sulfate) 168 HR 2014-11 No Notes: Memoria Clonidine 12-06 Patch l 0.0125 07:08: delivers [place] MG/HR 00 0.3 mg/24 Transdermal hours; Patch Patch is applied weekly. Catapres-T TS-3. "Remove old patch before applicatio n of new patch" D5NS + KCL 2014-11 No Notes: Memor ia 40mEq/L 12-06 PREMIX IV l 1000ml 07:07: - Do Not [place] (Premix) 00 Alter 1,000 mL Labetalol 2014-11 No Notes: Memori a 12-06 (Same as: l 06:47: Normodyne, [place] 00 Trandate) Push over 2 minutes Give bolus over 2-3 minutes. influenza 2014-11 No 0.5 mL, Memor ia virus 12-06 Route: IM, l vaccine, 05:29: ONCALL, Saúl n inactivated 21 Start date: 10/05/15 23:29:21, Stop date: 11/04/15 23:24:21 Glucose 50 2014-11 No 1,000 mL, Me moria MG/ML / 12-06 Rate: 125 l Sodium 04:29: ml/hr, [place] Chloride 00 Infuse 0.0769 over: 8 MEQ/ML hr, Route: Injectable IV, Dosing Solution Weight 81.364 kg, Total Volume: 1,000, Start date: 10/05/15 22:29:00, Duration: 30 day, Stop date: 11/04/15 22:28:00 Saline 2014-11 No Notes: Memoria Flush 0.9% 12-06 (Same as: l 04:29: BD [place] 00 Posiflush) Morphine 2014-11 No Notes: Memoria 12-06 (Same l 04:29: as:MORPhin [place] 00 e Sulfate) Acetaminoph 2014-11 No Notes: Desmond chitra en 325 MG / 12-06 (Same as: l Hydrocodone 04:29: [place] Ruby nn Bitartrate 00 325/5) Do 5 MG Oral not exceed Tablet 4gm/day of acetaminop hen. Zofran 2014-11 No 4 mg, Memoria 12-06 Route: l 03:35: IVP, Drug [place] 00 form: INJ, ONCE, Dosing Weight 81.364, kg, Priority: STAT, Start date: 10/05/15 21:35:00, Stop date: 10/05/15 21:35:00 Morphine 2014-11 No 4 mg, Memoria 12-06 Route: l 03:26: IVP, Drug Gav[place] 00 form: INJ, ONCE, Dosing Weight 81.364, kg, Priority: STAT, Start date: 10/05/15 21:26:00, Stop date: 10/05/15 21:26:00 Morphine 2014-11 No Notes: Memoria 12-06 (Same l 00:44: as:MORPhin Gav[place] 00 e Sulfate) an 2014-11 No Notes: Memoria 12-06 (Same as: l 00:44: Zoan) Gavino 00 MEDICATION WASTE Product Size: 4 mg Product Wasted: ___ mg Sodium 2014-11 No 1,000 mL, Memori a Chloride 12-06 1000 l 0.154 00:08: ml/hr, [place] MEQ/ML 00 Infuse Injectable Over: 1 Solution hr, Route: IV, 1,000, Drug form: INJ, ONCE, Priority: STAT, Dosing Weight 81.364 kg, Start date: 10/05/15 18:08:00, Duration: 1 doses or times, Stop date: 10/05/15 18:08:00 Saline 2014-11 No Notes: Memoria Flush 0.9% 12-06 (Same as: l 00:08: BD Gav[place] 00 Posiflush) carvedilol Yes 6.25 mg = Me moria 3.125 mg 802 2 tab, PO, l oral tablet 15:29: Q12H, # 60 Gav[place] 00 tab, 0 Refill(s) fludrocorti Yes 0.1 mg = 1 Memoria sone 0.1 mg 8-02 tab, PO, l oral tablet 15:29: Daily, # He rmann 00 30 tab, 0 Refill(s) Megestrol Yes 400 mg = Desmond chitra Acetate 40 802 10 mL, PO, l MG/ML Oral 15:29: BID, # 600 H ermann Suspension 00 mL, 0 Refill(s) 24 HR Yes 30 mg = 1 Memoria Nifedipine 8-02 tab, PO, l 30 MG 15:29: Daily, # [place] Extended 00 30 tab, 0 Release Refill(s) Tablet 24 HR No Notes: Memoria Nifedipine 8- (Same as: l 90 MG 14:00: Procardia [place] Extended 00 XL) "Do Release Not Crush" Tablet "Avoid grapefruit and grapefruit juice" Levaquin No Notes: Do Desmond chitra 7-31 not give l 01:00: w/antacids , dairy pdt & minerals Take 1 hr before or 2 hr after dairy pdt (Same as:Levaqui n) potassium No Notes: Memori a chloride 7-30 (Same as: l 17:31: Potassium Chloride) Florinef No Notes: Memoria 7- (Same as: l 20:16: Florinef Acetate) Give with food. Aspirin 325 No Notes: Desmond chitra MG Oral 7-28 Take with l Tablet 22:00: food. Gavino 00 Megace No 400 mg, 10 Memor ia [...] 1,000 No 1,000 mL, Me moria mL 7- Rate: 75 l 02:09: ml/hr, Infuse over: 13.3 hr, Route: IV, Dosing Weight 84.091 kg, Total Volume: 1,000, Start date: 06/13/15 21:09:00, Stop date: 07/13/15 21:08:00 tamsulosin No Notes: Memor ia 7-28 (Same As: l 02:00: Flomax) Gavino "Do Not Crush" Coreg No Notes: Memoria 7-28 Give with l 02:00: food. Gavino 00 (Same As: Coreg) Lisinopril No Notes: Memor ia 7- (Same as: l 14:00: Prinivil, [place] 00 Zestril) Hydralazine No Notes: Desmond chitra Hydrochlori 7- (Same as: l de 25 MG 13:00: Apresoline Her leonardo Oral Tablet 00 ) May interfere w/enteral feedings Take With Food. Hydralazine No Notes: Desmond chitra 7- (Same as: l 12:05: Apresoline [place] 00 ) Push over 5 minutes Hydralazine [...] 7-26 not give l 21:00: w/antacids Gavino , dairy pdt & minerals Take 1 [...] l Oral Tablet 18:14: Q12H, # 28 [place] [Cipro] 00 tab, 0 Refill(s) Hydralazine No 50 mg = 1 M emoria Hydrochlori 7-26 tab, PO, l de 50 MG 18:14: Q8H, # 120 Her leonardo Oral Tablet 00 tab, 0 Refill(s) lisinopril Yes 40 mg = 1 Me moria 40 mg oral 06-12 tab, PO, l tablet 18:14: Daily, # Gavino 00 30 tab, 0 Refill(s) 24 HR No 90 mg = 1 Memoria Nifedipine 06-12 tab, PO, l 90 MG 18:14: Daily, # [place] Extended 00 30 tab, 0 Release Refill(s) Tablet gabapentin No Notes: Memor ia 400 MG Oral 06-12 (Same as: l Capsule 14:00: Neurontin) Herm Docusate No Notes: Memoria 06-12 (Same as: l 14:00: Colace) (Do Not Crush) Flecainide No Notes: Memor ia 06-12 (Same as: l 14:00: Tambocor) Digoxin No Notes: Memoria 06-12 Take on an l 14:00: Empty [place] 00 Stomach (Same as: Lanoxin) Lovenox No Notes: Memoria 06-12 (Same as: l 05:00: Lovenox) Clindamycin No Notes: Desmond chitra 06-12 (Same As: l 05:00: Cleocin) Ciprofloxac No Notes: May Memoria in 06-12 interfere l 05:00: w/enteral feedings - Take 1 hr before [...] a 06-12 (Same As: l 04:08: Restoril) Gavino 00 gabapentin No Notes: Memor ia 400 MG Oral 06-12 (Same as: l Capsule 04:07: Neurontin) Herm allison 00 Saline No Notes: Memoria Flush 0.9% 06-12 (Same as: l 04:01: BD [place] 00 Posiflush) Ondansetron No Notes: Desmond chitra 06-12 (Same as: l 04:01: Zofran) Gavino MEDICATION WASTE Product Size: 4 mg Product Wasted: _0__ mg Morphine No Notes: Memoria 06-12 (Same l 04:01: as:MORPhin Gavino e Sulfate) Acetaminoph No Notes: Do M emoria en 06-12 not exceed l 04:01: 4 gm/day. Gavino 00 (Same as: Tylenol) Acetaminoph No Notes: Desmond chitra en 325 MG / 06-12 (Same as: l Hydrocodone 04:01: [place] Ruby nn Bitartrate 00 325/5) Do 5 MG Oral not exceed Tablet 4gm/day of acetaminop hen. Acetaminoph Yes 1 tab, PO, Memoria en 325 MG / 05-31 Q6H, PRN l Hydrocodone 20:08: Pain Score [place] Bitartrate 00 1-3, # 30 5 MG Oral tab, 0 Tablet Refill(s) [[place] 5/325] Hydralazine Yes 50 mg = 1 M emoria Hydrochlori -14 tab, PO, l de 50 MG 19:14: Q8H, # 90 Herm allison Oral Tablet 00 tab, 0 Refill(s) lisinopril Yes 40 mg = 1 Me moria 40 mg oral -14 tab, PO, l tablet 19:14: Daily, # Gavino 00 30 tab, 0 Refill(s) 24 HR Yes 90 mg = 1 Memoria Nifedipine -14 tab, PO, l 90 MG 19:14: Daily, # [place] Extended 00 30 tab, 0 Release Refill(s) Tablet clindamycin 2015-0 Yes 300 mg = 1 Memoria 300 mg oral 7-14 cap, PO, l capsule 17:22: Q6H, X 14 Ruby nn day, # 56 cap, 0 Refill(s) ciprofloxac Yes 500 mg = 1 Memoria in 500 mg 7-14 tab, PO, l oral tablet 17:22: Q12H, X 14 [place] 00 day, # 28 tab, 0 Refill(s) Diphenhydra No Notes: Desmond chitra mine - (Same as: l 21:13: Benadryl) Naloxone No Notes: Memoria 7- Same as l 21:13: Narcan Flumazenil No [...] 05-30 Rate: 125 l 0.0014 21:13: ml/hr, Gavino MEQ/ML / 00 Infuse Potassium over: 8 Chloride hr, Route: 0.004 IV, Dosing MEQ/ML / Weight Sodium 86.364 kg, Chloride Total 0.103 Volume: MEQ/ML / 1,000, Sodium Start Lactate date: 0.028 05/30/15 MEQ/ML 16:13:00, Injectable Duration: Solution 30 day, Stop date: 06/29/15 16:12:00 Lactated 2015-0 No 1,000 mL, Desmond chitra Ringers IV - Rate: 25 l 1,000 mL 21:02: ml/hr, [place] Infuse over: 40 hr, Route: IV, Dosing Weight 86.364 kg, Total Volume: 1,000, Start date: 05/30/15 16:02:00, Duration: 30 day, Stop date: 06/29/15 16:01:00 Invanz 2014-0 No Notes: Memoria 7-13 (Same as: l 20:00: INVanz) [place] 00 Refrigerat e. NOT COMPATIBLE WITH D5W. Stable in refrigerat or for 24 hours MEDICATION WASTE Product Size: 1000 mg Product Wasted: ___ mg vancomycin 2014-0 No 2000 mg: Me moria 7-13 infuse l 18:00: over 2.5 [place] 00 hours magnesium 2015-0 No 1 gm, 50 Desmond chitra sulfate 7-13 mL, Route: l 16:00: IVPB, Drug form: INJ, ONCE, Start date: 05/30/15 11:00:00, Stop date: 05/30/15 11:00:00 Vancomycin 2015-0 No 1 gm, Memori a 7-13 Route: l 16:00: IVPB, Drug form: INJ, [id number], Dosing Weight 86.364, kg, Start date: 05/30/15 11:00:00, Duration: 30 day, Stop date: 06/28/15 23:00:00 magnesium 2015-0 No 50 mL, Memori a sulfate 7-13 Rate: 25 l 13:00: ml/hr, [place] Infuse over: 2 hr, Route: IVPB, Total Volume: 50, Start date: 05/30/15 8:00:00, Stop date: 05/30/15 8:00:00 Magnesium 2015-0 No 3 gm, Memoria Sulfate 7-13 Route: IV, l 12:14: ONCE, [place] Dosing Weight 86.364, kg, Priority: STAT, Start date: 05/30/15 7:14:00, Stop date: 05/30/15 7:14:00 Potassium No Notes: Memori a Chloride 7-12 (Same as: l 1.33 MEQ/ML 16:20: Potassium H ermann Oral 00 Chloride) Solution Santyl No Notes: Memoria 7-10 (Same As: l 14:00: Santyl) [place] 00 Sodium No 1,000 mL, Memori a Chloride 05-26 Rate: 100 l 0.154 23:51: ml/hr, [place] MEQ/ML 00 Infuse Injectable over: 10 Solution hr, Route: IV, Dosing Weight 86.364 kg, Total Volume: 1,000, Start date: 05/26/15 18:51:00, Duration: 30 day, Stop date: 06/25/15 18:50:00 24 HR No Notes: Memoria Nifedipine -08 (Same as: l 90 MG 14:00: Procardia [place] Extended 00 XL) "Do Release Not Crush" Tablet "Avoid grapefruit and grapefruit juice" Zosyn + No Notes: Memoria Sodium -07 (Same as: l Chloride 21:00: Zosyn) [place] 0.9% IV 100 00 Dosing mL based on Piperacill in component MEDICATION WASTE Product Size: 3375 mg Product Wasted: ___ mg Omnipaque No Notes: Memori a 300 -07 (Same l 18:23: as:Omnipaq [place] 00 ue 300). Hydralazine No Notes: Desmond chitra - (Same as: l 17:00: Apresoline [place] 00 ) May interfere w/enteral feedings Take With Food. Flagyl No Notes: Memoria 7-07 (Same as: l 16:00: Flagyl) [place] 00 Take with food/ avoid alcohol Benadryl No 25 mg, 1 Memor ia 7-07 tab, l 07:03: Route: PO, [place] 00 Drug form: TAB, ONCE, Dosing Weight 86.364, kg, PRN Insomnia, Start date: 05/24/15 2:03:00, Stop date: 06/23/15 2:02:00 Hydralazine No Notes: Desmond chitra - (Same as: l 17:00: Apresoline [place] 00 ) May interfere w/enteral feedings. Take With Food 24 HR No Notes: Memoria Nifedipine 05-23 (Same as: l 60 MG 14:00: Procardia [place] Extended 00 XL) "Do Release Not Crush" Tablet "Avoid grapefruit and grapefruit juice" Lisinopril No Notes: Memor ia 05-23 (Same as: l 14:00: Prinivil, [place] 00 Zestril) Acetaminoph No Notes: Desmond chitra en 325 MG / 05-22 (Same as: l Hydrocodone 17:27: [place] Ruby nn Bitartrate 00 325/5) Do 5 MG Oral not exceed Tablet 4gm/day of [[place] acetaminop 5/325] hen. Hydralazine No Notes: Desmond chitra Hydrochlori 05-22 (Same as: l de 10 MG 17:26: Apresoline Her leonardo Oral Tablet 00 ) Push over 5 minutes Hydralazine No Notes: Desmond chitra - (Same as: l 17:00: Apresoline [place] 00 ) May interfere w/enteral feedings. Take With Food Insulin, No Notes: Memoria Aspart, 05-22 Roll in l Human 16:30: palms of [place] 00 hands gently; Do not shake vigorously [...] 05-20 Same as l 02:00: Levemir Do [place] 00 not hold insulin without contacting prescriber "single patient use only" Insulin, No Notes: Memoria Aspart, - Roll in l Human 16:30: palms of [place] 00 hands gently; Do not shake vigorously . (Same as: NovoLOG) "single patient use only" Stable for 28 days at room temperatur e. Expires in days from ____Date Sodium No 1,000 mL, Memori a Chloride 05-19 Rate: l 0.154 16:28: Titrate, [place] MEQ/ML 00 Dosing Injectable Weight Solution 86.364, kg, Route: IV, Total Volume: 1,000, Start Date: 05/19/15 11:28:00, Duration: 30 day, Stop date: 06/18/15 11:27:00, Replace Every: 24 hr Insulin, No Notes: Memoria Aspart, - Roll in l Human 15:26: palms of [place] 00 hands gently; Do not shake vigorously . (Same as: NovoLOG) "single patient use only" Stable for 28 days at room temperatur e. Expires in days from ____Date Dextrose No 25 gm, 50 Desmond chitra 50% Syringe 05-19 mL, Route: l 15:26: IVP, Drug [place] 00 Form: INJ, Dosing Weight 86.364, kg, PRN, PRN Blood Glucose Results, Start date: 05/19/15 10:26:00, Duration: 30 day, Stop date: 06/18/15 10:25:00 Glucagon No 1 mg, Memoria 05-19 Route: IM, l 15:26: Drug form: [place] 00 PDR/INJ, PRN, Dosing Weight 86.364, kg, PRN Blood Glucose Results, Start date: 05/19/15 10:26:00, Duration: 30 day, Stop date: 06/18/15 10:25:00 Kayexalate No Notes: Memor ia 05-19 (sodium l 13:54: polystyren [place] 00 e sulfonate 15 gm/60 ml GENESIS) Shake well before use. (Same as: Kayexalate , SPS) fat No Notes: Memoria emulsion, 05-19 (Same as: l intravenous 02:00: Intralipid [place] 00 , Liposyn) vancomycin No 2001 mg: Me moria 05-18 infuse l 19:00: over 2.5 [place] 00 hours Bisacodyl No Notes: Memori a 05-18 (Same As: l 17:19: Dulcolax, [place] 00 Bisco-Lax) Amino Acids No Notes: Desmond chitra 4.25% with 05-18 Same as: l 5% Dextrose 16:43: ClinimixE H ermann and 00 Electrolyte s (Clinimix E Sulfite-[place] e) 2,000 mL Dulcolax No Notes: Memoria Laxative 05-18 (Same As: l 16:42: Dulcolax, [place] 00 Bisco-Lax) Vancomycin No 1 gm, Memori a 05-18 Route: l 16:38: IVPB, Drug form: INJ, [id number], Dosing Weight 86.364, kg, Priority: NOW, Start [...] on an l mg) oral 14:00: Empty [place] tablet 00 Stomach (Same as: Lanoxin) 24 HR No Notes: Memoria Nifedipine 05-18 (Same as: l 30 MG 14:00: Procardia [place] Extended 00 XL) "Do Release Not Crush" Tablet "Avoid [Procardia] grapefruit and grapefruit juice" Lisinopril No Notes: Memor ia 05-18 (Same as: l 14:00: Prinivil, [place] 00 Zestril) gabapentin No Notes: Memor ia 400 MG Oral 05-18 (Same as: l Capsule 14:00: Neurontin) Vancomycin No 2001 mg: Me moria 05-18 infuse l 05:27: over 2.5 hours gabapentin No Notes: Memor ia 400 MG Oral 05-18 (Same as: l Capsule 02:00: Neurontin) Flecainide No Notes: Memor ia 05-18 (Same as: l 02:00: Tambocor) Mirtazapine No Notes: Desmond chitra 05-18 (Same l 02:00: as:Remeron ) Aspirin 325 No Notes: Desmond chitra MG Oral 6-30 Take with l Tablet 23:08: food. Dulcolax No Notes: Memoria Laxative 6-30 (Same As: l 23:02: Dulcolax, Bisco-Lax) Amino Acids No Notes: Desmond chitra 5% with 15% 6-30 Same as: l Dextrose 23:00: Clinimix E Her and 04/01 Electrolyte Standard s (Clinimix electrolyt E es for Sulfite-[place] this e) 2,000 mL formulatio n listed on bag pantoprazol No Notes: Desmond chitra e 6-30 Tablet l 21:30: should not be chewed or crushed. (Same as: Protonix) Amino Acids No 1,000 mL, M emoria 5% with 15% 6-30 Rate: 90 l Dextrose 18:19: ml/hr, Infuse Electrolyte over: 11.1 s (Clinimix hr, Route: E IVPB, Sulfite-Mar[place] Dosing e) 1000 mL Weight 86.364 kg, Total Volume: 1,000 mL, Start date: 05/17/15 13:19:00, Duration: 30 day, Stop date: 06/16/15 13:18:00 gabapentin Yes 400 mg = 1 M emoria 400 MG Oral 6-30 cap, PO, l Capsule 14:34: QAM, 0 Refill(s) Bisacodyl Yes 10 mg = 1 Mem oria 10 MG 6-30 supp, LA, l Rectal 14:34: Q12H, PRN Saúl n Suppository 00 Constipati [Dulcolax] on, # 10 supp, 0 Refill(s) senna 8.6 Yes 17.2 mg = Mem oria mg oral 6-30 2 tab, PO, l tablet 14:34: Bedtime, [place] 00 PRN Constipati on, # 20 tab, [...] tab, PO, l Tablet 14:34: QPM, 0 [place] 00 Refill(s) Ciprofloxac No Special Mem oria [...] 6-30 Instructio l tablet 14:34: ns: Hold [place] 00 for SBP <110 tramadol Yes 50 [...] l 30 MG 14:34: QAM, # 30 [place] Extended 00 tab, 0 Release Refill(s) Tablet [...] Memoria 6-30 Infuse l 10:00: over 4 [place] 00 hours. (same as: Zosyn) Enoxaparin No Notes: Memor ia 6-30 (Same as: l 10:00: Lovenox) [place] 00 Phenergan No Notes: Do Mem oria 6-30 not give l 09:44: IV push. (Same as: Phenergan) Zofran No Notes: Memoria 6-30 (Same as: l 09:44: Zofran) MEDICATION WASTE Product Size: 4 mg Product Wasted: ___ mg Saline No Notes: Memoria Flush 0.9% 6-30 (Same as: l 03:18: BD [place] 00 Posiflush) Ondansetron No Notes: Desmond chitra 6-30 (Same as: l 03:18: Zofran) MEDICATION WASTE Product Size: 4 mg Product Wasted: ___ mg Acetaminoph No Notes: Do M emoria en 05-17 not exceed l 03:18: 4 gm/day. [place] 00 (Same as: Tylenol) Sodium No 1,000 mL, Memori a Chloride 05-17 Rate: 100 l 0.154 03:18: ml/hr, [place] MEQ/ML 00 Infuse Injectable over: 10 Solution hr, Route: IV, Dosing Weight 86.364 kg, Total Volume: 1,000, Start date: 05/16/15 22:18:00, Stop date: 05/17/15 21:00:00 Morphine No Notes: Memoria -30 (Same l 03:18: as:MORPhin [place] 00 e Sulfate) Zosyn No Notes: Memoria -30 Infuse l 02:54: over 4 [place] 00 hours. (same as: Zosyn) Omnipaque No Notes: Memori a 300 05-17 (Same l 01:13: as:Omnipaq [place] 00 ue 300). Saline No Notes: Memoria Flush 0.9% 05-16 (Same as: l 21:41: BD [place] Posiflush) Amino Acids No Notes: Desmond chitra 5% with 15% 04-27 Same as: l Dextrose 14:53: Clinimix E Her leonardo and 00 04/01 Electrolyte Standard s (Clinimix electrolyt E es for Sulfite-[place] this e) 2,000 mL formulatio n listed on bag octreotide Yes 100 Memoria 100 mcg/mL 04-25 microgram, l injectable 15:19: SUB-Q, Ruby nn solution 00 TID, X 10 day, # 30 mL, 0 Refill(s) pantoprazol Yes 40 mg = 1 M emoria e 40 MG 6-08 tab, PO, l Enteric 15:19: Daily, # Saúl n Coated 00 90 tab, 0 Tablet Refill(s) [Protonix] Amino Acids No Notes: Desmond chitra 4.25% with 04-24 Same as: l 5% Dextrose 22:00: Clinimix [...] = 1 M emoria 0.4 mg oral 604 cap, PO, l capsule 21:20: After [place] Breakfast, # 30 cap, 0 Refill(s) Sodium No 250 mL, Memoria Chloride 6-04 Rate: On l 0.9% 02:05: call for [place] (titrate) 00 use with 250 mL blood product administra tion, Dosing Weight 104.545, kg, Route: IV, Total Volume: 250, Start Date: 04/20/15 21:05:00, Duration: 30 day, Stop date: 05/20/15 21:04:00, Replace Every: 24 hr Lasix No Notes: Memoria 6-01 (Same as: l 17:09: Lasix) MEDICATION WASTE Product Size: 40 mg [...] as: l Capsule 14:00: Neurontin) Herm allison digoxin 125 No Notes: Desmond chitra mcg (0.125 5-31 Take on an l mg) oral 14:00: Empty [place] tablet 00 Stomach (Same as: Lanoxin) metoprolol No Notes: Memor ia tartrate 5-31 (Same as: l 02:00: Lopressor) [place] 00 gabapentin No Notes: Memor ia 400 MG Oral 5-31 (Same as: l Capsule 02:00: Neurontin) Herm Flecainide No Notes: Memor ia 5-31 (Same as: l 02:00: Tambocor) Lisinopril No Notes: Memor ia 5-30 (Same as: l 22:00: Prinivil, [place] 00 Zestril) Hydralazine No Notes: Desmond chitra Hydrochlori 5-30 (Same as: l de 25 MG 18:00: Apresoline Her leonardo Oral Tablet 00 ) May interfere w/enteral feedings Take With Food. 24 HR No Notes: Memoria Nifedipine 5-30 (Same as: l 30 MG 17:24: Procardia [place] Extended 00 XL) "Do Release Not Crush" Tablet "Avoid [Procardia] grapefruit and grapefruit juice" Lisinopril No Notes: Memor ia 5-30 (Same as: l 03:11: Prinivil, [place] 00 Zestril) Sodium No 250 mL, Memoria Chloride 5-29 Rate: On l 0.9% 17:09: call for [place] (titrate) 00 use with [...] Memoria 5-28 (Same as: l 23:47: Dilaudid) [place] Restoril No Notes: Memoria 5-28 (Same As: l 02:16: Restoril) [place] 00 Maalox No Notes: Memoria Advanced 5-28 (aluminum l Regular 01:45: hydroxide- Herm allison Strength 00 magnesium SUSP hyd-simeth icone 200-200-20 mg/5ml 30 ml ud GENESIS) Acetaminoph No Notes: Do M emoria en 325 MG / - not exceed l Hydrocodone 01:45: 4gm/day of [place] Bitartrate 00 acetaminop 10 MG Oral hen. Tablet (Same as: [[place] 10/325] 325/10) Hydralazine No Notes: Desmond chitra -27 (Same as: l 23:00: Apresoline ) Push over 5 minutes 168 HR No Notes: Memoria Clonidine - Patch l 0.26011 14:00: delivers Saúl n MG/HR 00 0.2 mg/24 Transdermal hours; Patch Patch is applied weekly. 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 (Same as: Xylocaine MPF) Amino Acids No 2,000 mL, M emoria 5% with 15% 5-22 Rate: 90 l Dextrose 19:53: ml/hr, [place] and Infuse Electrolyte over: 22.2 s (Clinimix hr, Route: E IVPB, Sulfite-Marito Dosing e) 2000 mL Weight 104.545 kg, Total Volume: 2,000 mL, Start date: 04/08/15 14:53:00, Duration: 30 day, Stop date: 05/08/15 14:52:00 NS 1,000 mL No 1,000 mL, M emoria 522 Rate: 100 l 13:30: ml/hr, [place] 00 Infuse over: 10 hr, Route: IV, Dosing Weight 104.545 kg, Total Volume: 1,000, Start date: 04/08/15 8:30:00, Stop date: 04/08/15 21:00:00 Sodium No 1,000 mL, Memori a Chloride 22 1,000 l 0.154 13:30: ml/hr, [place] MEQ/ML 00 Infuse Injectable Over: 1 Solution hr, Route: IV, 1,000, Drug form: INJ, ONCE, Priority: STAT, Dosing Weight 104.545 kg, Start date: 04/08/15 8:30:00, Duration: 1 doses or times, Stop date: 04/08/15 8:30:00 Calcium No Notes: Memoria Carbonate 04-08 (Same As: l 500 MG 13:12: Tums) [place] Chewable 00 Calcium Tablet Carbonate 500 mg = 200 mg elemental calcium Dose = mg calcium carbonate ( mg elemental calcium) Calcium No Special Memoria Gluconate 04-08 Instructio l 13:12: ns: FOR [place] ICU USE ONLY Magnesium No Notes: Memori a Oxide 04-08 (Same as: l 13:12: Mag-Ox [place] 00 400) Magnesium oxide 218aa=210w g elemental magnesium Dose=____m g magnesium oxide (___mg elemental magnesium) potassium No Notes: Memori a chloride - Infuse at l 13:12: a rate of [place] 00 10 mEq/hr. (Same as: KCL) potassium No Notes: Memori a phosphate + 04-08 (Same as: l Sodium 13:12: K [place] Chloride Phosphate. 0.9% IV 250 ) 1 mMol mL phoshate has 1.47 mEq potassium Infuse over 4 hours Magnesium No Special Memor ia Sulfate 04-08 Instructio l 13:12: ns: FOR [place] ICU USE ONLY Neutra-Phos No Notes: Desmond chitra - Same as: l 13:12: Phos-Nak [place] Mix 1 packet with 75 mL water or juice. Each packet has 160mg of sodium, 280mg of potassium, and 250mg of phosphorus Non-Formu souleymane Item sodium No Special Memoria phosphate + 04-08 Instructio l Sodium 13:12: ns: FOR [place] Chloride ICU USE 0.9% IV 250 ONLY mL Magnesium No 2 gm, 50 Desmond chitra Sulfate -22 mL, Route: l 04:33: IVPB, Drug [place] 00 form: INJ, ONCE, Dosing Weight 104.545, kg, Start date: 04/07/15 23:33:00, Duration: 2 hr, Stop date: 04/07/15 23:33:00 Lasix No Notes: Memoria 5-22 (Same as: l 03:17: Lasix) [place] 00 MEDICATION WASTE Product Size: 40 mg Product Wasted: ___ mg Calcium No Notes: Memoria Gluconate 5-22 Always l 03:16: ordered as [place] 00 ___ mEq per 100ml - Send 1 syringe for each 100ml - MUST be diluted prior to administra tion. Add to 100ml of IV fluids. . sodium No Notes: Memoria bicarbonate 5-22 (sodium l 8.4% 01:08: bicarb [place] additive 00 8.4% (1 150 mEq + mEq/ml) 50 D5W 850 mL ml VL) Fluconazole No Notes: Desmond chitra -21 (Same as: l 22:00: Diflucan) Do not refrigerat e heparin No Notes: Memoria 5-21 porcine l 21:00: heparin Octreotide No Notes: Memor ia -21 (Same As: l 21:00: SandoSTATI [place] 00 N). Refrigerat e. MEDICATION WASTE Product Size: 100 microgram Product Wasted: ___ microgram sodium No Notes: Memoria bicarbonate 5-21 (sodium l 8.4% 14:21: bicarb [place] additive 00 8.4% (1 150 mEq + mEq/ml) 50 D5W 1,000 ml VL) mL Calcium No 1,000 mg, Memor ia Gluconate 04-07 Route: l 14:05: IVPB, Drug form: INJ, ONCE, Dosing Weight 104.545, kg, Start date: 04/07/15 9:05:00, Stop date: 04/07/15 9:05:00 Zosyn No Notes: Memoria 5-21 (Same as: l 14:00: Zosyn) Dosing based on Piperacill in component MEDICATION WASTE Product Size: 3375 mg Product Wasted: ___ mg normal No 1,000 mL, Memori a saline 0.9% 5-21 Rate: 150 l IV 1,000 mL 13:48: ml/hr, Herm allison 00 Infuse over: 6.7 hr, Route: IV, Dosing Weight 104.545 kg, Total Volume: 1,000, Start date: 04/07/15 8:48:00, Duration: 30 day, Stop date: 05/07/15 8:47:00 NS 1,000 mL No 1,000 mL, M emoria 5-21 Rate: 100 l 12:42: ml/hr, [place] 00 Infuse over: 10 hr, Route: IV, Dosing Weight 104.545 kg, Total Volume: 1,000, Start date: 04/07/15 7:42:00, Duration: 30 day, Stop date: 05/07/15 7:41:00 Protonix No 40 mg, Memoria 5-21 Route: l 12:30: IVP, [place] 00 Before Breakfast, Dosing Weight 104.545, kg, Start date: 04/07/15 7:30:00, Duration: 30 day, Stop date: 05/06/15 7:30:00 Protonix No Notes: For Mem oria 5-20 IV push l 22:00: reconstitu [place] 00 te with 10 ml 0.9% sodium chloride and push over 2 minutes. (Same as: Protonix) azelastine No 1 spray, Mem oria nasal 0.1% 5-20 NASAL, l (137 21:22: Daily, 0 [place] mcg/inh) 00 Refill(s) spray tramadol No 50 mg = 1 Desmond chitra hydrochlori 5-20 tab, PO, l de 50 MG 21:21: Q6H, PRN Ruby nn Oral Tablet 00 foot pain, # 40 tab, 0 Refill(s) ondansetron No 4 mg = 1 Me moria 4 mg oral 5-20 tab, PO, l tablet 21:13: TID, PRN [place] 00 as needed for nausea/vom iting, # [...] Bitartrate 00 Refill(s) 5 MG Oral Tablet [[place] 5/325] Hydralazine Yes 25 mg = 1 M emoria Hydrochlori 5-20 tab, PO, l de 25 MG 21:13: TID, PRN Ruby nn Oral Tablet 00 blood pressure, # 120 tab, 0 Refill(s) ciprofloxac No 500 mg = 1 Memoria in 500 mg 5-20 tab, PO, l oral tablet 21:13: Q12H, # 14 [place] 00 tab, 0 Refill(s) Hydromorpho No Notes: Desmond chitra ne 5-20 (Same as: l 21:00: Dilaudid) conc = 0.5 mg/ml 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: ;Delay: ;Basal: Diflucan No Notes: Memoria [...] mL 5-20 Rate: 125 l 19:10: ml/hr, [place] 00 Infuse over: 8 hr, Route: IV, Dosing Weight 104.545 kg, Total Volume: 1,000, Start date: 04/06/15 14:10:00, Duration: 30 day, Stop date: 05/06/15 14:09:00 Lactated No 1,000 mL, Desmond chitra Ringers IV 5-20 Rate: 25 l 1,000 mL 15:57: ml/hr, [place] 00 Infuse over: 40 hr, Route: IV, Dosing Weight 104.545 kg, Total Volume: 1,000, Start date: 04/06/15 10:57:00, Duration: 30 day, Stop date: 05/06/15 10:56:00 Cipro No Notes: Do Memoria 5-20 not l 14:00: refrigerat [place] e Docusate No Notes: Memoria 5-20 (Same as: l 14:00: Colace) [place] 00 (Do Not Crush) Ondansetron No Notes: Desmond chitra 5-20 (Same as: l 14:00: Zofran) [place] 00 MEDICATION WASTE Product Size: 4 mg Product Wasted: ___ mg Morphine No Notes: Memoria 5-20 (Same l 14:00: as:MORPhin [place] 00 e Sulfate) Acetaminoph No Notes: Desmond chitra en 325 MG / 5-20 (Same as: l Hydrocodone 14:00: [place] Ruby nn Bitartrate 00 325/5) Do 5 MG Oral not exceed Tablet 4gm/day of acetaminop hen. Acetaminoph No Notes: Do M emoria en 5-20 not exceed l 14:00: 4 gm/day. [place] (Same as: Tylenol) Saline No Notes: Memoria Flush 0.9% 5-20 (Same as: l 14:00: BD [place] Posiflush) Lactated No 1,000 mL, Desmond chitra Ringers IV 5-20 Rate: 125 l 1,000 mL 14:00: ml/hr, [place] 00 Infuse over: 8 hr, Route: IV, Dosing Weight 104.545 kg, Total Volume: 1,000, Start date: 04/06/15 9:00:00, Duration: 30 day, Stop date: 05/06/15 8:59:00 Protonix No Notes: For Mem oria 5-20 IV push l 14:00: reconstitu [place] 00 te with 10 ml 0.9% sodium chloride and push over 2 minutes. (Same as: Protonix) Flagyl No Notes: Memoria 5-20 (Same as: l 14:00: Flagyl) [place] 00 Avoid alcohol. Dilaudid No Notes: Memoria 5-20 (Same as: l 13:48: Dilaudid) Sodium No 1,000 mL, Memori a Chloride 5-20 1,000 l 0.154 13:48: ml/hr, [place] MEQ/ML 00 Infuse Injectable Over: 1 Solution hr, Route: IV, 1,000, Drug form: INJ, ONCE, Priority: STAT, Dosing Weight 104.545 kg, Start date: 04/06/15 8:48:00, Duration: 1 doses or times, Stop date: 04/06/15 8:48:00 LR IV 1,000 No 1,000 mL, M emoria mL 5-20 Rate: 125 l 13:47: ml/hr, Infuse over: 8 hr, Route: IV, Dosing Weight 104.545 kg, Total Volume: 1,000, Start date: 04/06/15 8:47:00, Duration: 30 day, Stop date: 05/06/15 8:46:00 Dilaudid No Notes: Memoria 5-20 (Same as: l 13:03: Dilaudid) Morphine No Notes: Memoria 5-20 (Same l 12:20: as:MORPhin e Sulfate) vancomycin No 2000 mg: Me moria 5-20 infuse l 11:00: over 2.5 [place] 00 hours NS 1,000 mL No Special Mem oria 5-20 Instructio l 10:38: ns: Bolus Dose Vancomycin No 1 gm, Memori a 5-20 Route: l 10:37: IVPB, Drug 00 form: INJ, ONCE, Dosing Weight 100, kg, Priority: STAT, Start date: 04/06/15 5:37:00, Stop date: 04/06/15 5:37:00 Zosyn No Notes: Memoria 5-20 Infuse l 10:37: over 4 [place] 00 hours. (same as: Zosyn) Fentanyl No Notes: Memoria 5-20 (Same as: l 10:22: Sublimaze) Preservat phu free. Omnipaque No Notes: Memori a 300 5-20 (Same l 09:40: as:Omnipaq ue 300). Morphine No Notes: Memoria 5-20 (Same l 09:05: as:MORPhin [place] 00 e Sulfate) Ondansetron No Notes: Desmond chitra 5-20 (Same as: l 09:05: Zofran) MEDICATION WASTE Product Size: 4 mg Product Wasted: ___ mg Sodium No 500 mL, Memoria Chloride 5-20 1000 l 0.154 09:05: ml/hr, [place] MEQ/ML 00 Infuse Injectable Over: 30 Solution minutes, Route: IV, 500, Drug form: INJ, ONCE, Priority: STAT, Dosing Weight 99.716 kg, Start date: 04/06/15 4:05:00, Duration: 1 doses or times, Stop date: 04/06/15 4:05:00 Ondansetron No 4 mg = 1 Me moria 4 MG Oral 5-18 tab, PO, l Tablet 14:38: TID, PRN [place] [Zofran] 00 as needed for nausea/vom iting, X 5 day, # 15 tab, 0 Refill(s) ciprofloxac No 500 mg = 1 Memoria in 500 mg 5-18 tab, PO, l oral tablet 14:22: Q12H, X 7 H ermann 00 day, # 14 tab, 0 Refill(s) Hydralazine No 160 Memori a Hydrochlori 5-18 l de 25 MG 14:22: [place] Oral Tablet 00 Acetaminoph No 1 tab, PO, Memoria en 325 MG / 5-18 Q4H, PRN l Hydrocodone 14:22: Pain Score Bitartrate 00 1-3, X 5 5 MG [...] 5% Dextrose 02:00: ClinimixE H ermann and Electrolyte s (Clinimix E Sulfite-Marito e) 2,000 [...] l 14:09: Prinivil, Zestril) Hydromorpho No Notes: Desmond chitra ne 5-14 (Same as: l 23:00: Dilaudid) conc = 0.5 mg/ml Hydromorph 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: ;Delay: ;Basal: Lactated No 1,000 mL, [...] Dilaudid) conc = 0.5 mg/ml Hydromorph 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: ;Delay: ;Basal: Naloxone No Notes: Memoria [...] No 1,000 mL, Desmond chitra Ringers IV 03-30 Rate: 125 l 1,000 mL 15:19: ml/hr, Infuse over: 8 hr, Route: IV, Dosing Weight 99.716 kg, Total Volume: 1,000, Start date: 03/30/15 10:19:00, Stop date: 03/31/15 10:18:00 Folic Acid No Notes: Memor ia 5-13 (Same as: l 14:00: Folvite) Sodium No 250 mL, Memoria Chloride - Rate: On l 0.9% 13:35: call for [place] (titrate) 00 use with 250 mL blood product administra tion, Dosing Weight 99.716, kg, Route: IV, Total Volume: 250, Start Date: 03/30/15 8:35:00, Duration: 30 day, Stop date: 04/29/15 8:34:00, Replace Every: 24 hr gabapentin No Notes: Memor ia 400 MG Oral 5-12 (Same as: l Capsule 22:00: Neurontin) metoprolol No Notes: Memor ia tartrate 5-12 (Same as: l 17:00: Lopressor) Lisinopril No Notes: Memor ia 5-12 (Same as: l 17:00: Prinivil, Zestril) Flecainide No Notes: Memor ia 5-12 (Same as: l 17:00: Tambocor) digoxin 125 No Notes: Desmond chitra mcg (0.125 5-12 Take on an l mg) oral 17:00: Empty Gavino tablet 00 Stomach (Same as: Lanoxin) digoxin [...] cap, PO, l Capsule 14:41: QAM, 0 Gavino 00 Refill(s) lisinopril Yes 10 mg = Desmond chitra 20 mg oral 5-12 0.5 tab, l tablet 14:41: PO, BID, 0 Ruby nn 00 Refill(s) Vitamin B6 Yes = 1 tab, Mem oria 5-12 PO, BID, 0 l 14:41: Refill(s) [place] 00 Metoprolol Yes 50 mg = 1 Me moria Tartrate 50 5-12 tab, PO, l mg oral 14:41: BID, # 60 Ruby nn tablet 00 tab, 0 Refill(s) Vitamin B12 Yes = 1 tab, Me moria 5-12 PO, BID, 0 l 14:41: Refill(s) Gavino 00 Aspirin 325 Yes 325 mg = 1 [facility] MG Oral 5-12 tab, PO, l Tablet 14:41: QPM, 0 [place] 00 Refill(s) tramadol Yes 100 mg = 2 Mem oria hydrochlori 5-12 tab, PO, l de 50 MG 14:41: BID, 0 [facility] Oral Tablet 00 Refill(s) Acetaminoph No Notes: Do M emoria en 325 MG / 5-12 not exceed l Hydrocodone 03:09: 4gm/day of [place] Bitartrate 00 acetaminop 10 MG Oral hen. Tablet (Same as: [[place] 10/325] 325/10) Acetaminoph No 1 tab, Desmond chitra en 325 MG / 5-12 Route: PO, l Hydrocodone 01:53: Drug Form: [facility] Bitartrate 00 TAB, 10 MG Oral Dosing Tablet Weight [[place] 106.818, 10/325] kg, ONCE, STAT, Start date: 03/28/15 20:53:00, Stop date: 03/28/15 20:53:00 Docusate No Notes: [facility] 5-11 (Same as: l 22:29: Colace) (Do Not Crush) Acetaminoph No Notes: Desmond chitra en 325 MG / 5-11 (Same as: l Hydrocodone 22:29: [place] Ruby nn Bitartrate 00 325/5) Do 5 MG Oral not exceed Tablet 4gm/day of acetaminop hen. Ondansetron No Notes: Desmond chitra 5-11 (Same as: l 22:29: Zofran) MEDICATION WASTE Product Size: 4 mg Product Wasted: ___ mg Hydromorpho No Notes: Desmond chitra ne 5-11 (Same as: l 22:29: Dilaudid) [facility] 00 Saline No Notes: [facility] Flush 0.9% 5-11 (Same as: l 22:29: BD [facility] 00 Posiflush) Zosyn No Notes: [facility] 5-11 Infuse l 21:00: over 4 [place] 00 hours. (same as: Zosyn) Zosyn No 3.375 gm, [facility] 5-11 Route: IV, l 20:11: Q6H, [facility] Dosing Weight 106.818, kg, Start date: 03/28/15 15:11:00, Duration: 30 day, Stop date: 04/27/15 12:00:00 Omnipaque No Notes: Mem[facility] a 300 5-11 (Same l 19:24: as:Omnipaq ue 300). normal No 500 mL, [facility] saline 0.9% 5-11 Rate: 500 l IV 500 mL 17:53: ml/hr, Saúl n 00 Infuse over: 1 hr, Route: IV, Dosing Weight 106.818 kg, Total Volume: 500, Start date: 03/28/15 12:53:00, Duration: 1 doses or times, Stop date: 03/28/15 13:52:00 Saline 2014-0 No Notes: [facility] Flush 0.9% 5- (Same as: l 17:53: BD [place] 00 Posiflush) amlodipine amlodipine No amlodipine [place] 10 mg 10 mg 10 mg da tablet tablet tablet Medical Group Aspir-81 1 Aspir-81 1 No Aspir-81 1 [...] nasal spray nasal spray mcg) nasal Group [place] 1 [place] 1 spray spray every spray every [place] 1 day by day by spray intranasal [...] topical Medica l cream cream cream Group diphenoxyla diphenoxyla No diphenoxyl [place] te-atropine te-atropine ate-atropi da 2.5 2.5 ne 2.5 Medical mg-0.025 mg mg-0.025 mg mg-0.025 Group tablet TAKE tablet TAKE mg tablet 1 TABLET BY 1 TABLET BY TAKE 1 MOUTH FOUR MOUTH FOUR TABLET BY TIMES DAILY TIMES DAILY MOUTH FOUR TIMES DAILY Eliquis 5 Eliquis 5 No Eliquis 5 [...] Medical Group furosemide furosemide No furosemide [place] 20 mg 20 mg 20 mg da tablet tablet tablet Medical Group furosemide furosemide No furosemide [place] [...] BY ORAL BY ORAL ROUTE ROUTE ROUTE hydroxyzine hydroxyzine No hydroxyzin [place] pamoate 50 pamoate 50 e pamoate da mg capsule mg capsule 50 mg Me dical Take 1 Take 1 capsule Group capsule 3 capsule 3 Take 1 times a day times a day capsule 3 by oral by oral times a route. route. day by oral route. ibuprofen ibuprofen No ibuprofen [place] 600 mg [...] by needed. needed. oral route as needed. methylpredn methylpredn No methylpred [place] isolone 4 isolone 4 nisolone 4 da mg tablets mg tablets mg tablets Medical in a dose in a dose in a dose Group pack Take 1 pack Take 1 pack Take dose pk by dose pk by 1 dose pk oral route. oral route. by oral route. metoprolol metoprolol No metoprolol [place] tartrate 50 [...] route as route as directed. directed. directed. ondansetron ondansetron No ondansetro [place] HCl 4 mg HCl 4 mg n HCl 4 mg d a tablet tablet tablet [facility] pantoprazol pantoprazol No pantoprazo [place] e 40 mg e 40 mg le 40 mg da tablet,tammy tablet,tammy tablet,del Medical yed release yed release ayed G roup TAKE 1 TAKE 1 release TABLET BY TABLET BY TAKE 1 MOUTH MOUTH TABLET BY EVERY DAY EVERY DAY MOUTH EVERY DAY potassium potassium No potassium [place] chloride chloride [...] MOUTH EVERY DAY EVERY DAY EVERY DAY triamcinolo triamcinolo No triamcinol [place] ne ne one da acetonide acetonide acetonide Medical 0.1 % 0.1 % 0.1 % Group topical topical topical cream cream cream Immunizations Ordered Immunization Filled Immunization Date Status Commen ts Source Name Name influenza, high dose influenza, high dose 2019-09-11 Completed [place] seasonal seasonal 00:00:00 Medical Group pneumococcal pneumococcal 2019-06-15 Completed [place] conjugate PCV 13 conjugate PCV 13 12:50:00 Me dical Group pneumococcal pneumococcal 2018-12-15 Completed [place] polysaccharide PPV23 polysaccharide PPV23 12:13:06 Medical Group Vital Signs Vital Name Observation Time Observation Value Comments Source Height 2020-06-07 00:00:00 74 [in_i] [facility] BMI (Body Mass 2020-06-07 00:00:00 22.6 kg/m2 [facility] Medical Index) Group Body Weight 2020-06-07 00:00:00 2816 [oz_av] [facility] BP Diastolic 2020-01-26 00:00:00 56 mm[Hg] [facility] Height 2020-01-26 00:00:00 74 [in_i] [facility] BMI (Body Mass 2020-01-26 00:00:00 25.9 kg/m2 [facility] Medical Index) Group BP Systolic 2020-01-26 00:00:00 131 mm[Hg] [facility] Body Weight 2020-01-26 00:00:00 3232 [oz_av] [facility] BP Diastolic 2020-01-19 00:00:00 63 mm[Hg] [facility] Height 2020-01-19 00:00:00 74 [in_i] [facility] BMI (Body Mass 2020-01-19 00:00:00 25.9 kg/m2 [facility] Group BP Systolic 2020-01-19 00:00:00 174 mm[Hg] [facility] Body Weight 2020-01-19 00:00:00 3232 [oz_av] [facility] BP Diastolic 2020-01-06 00:00:00 70 mm[Hg] [facility] Height 2020-01-06 00:00:00 74 [in_i] [facility] BMI (Body Mass 2020-01-06 00:00:00 25.9 kg/m2 [facility] BP Systolic 2020-01-06 00:00:00 144 mm[Hg] [facility] Body Weight 2020-01-06 00:00:00 3232 [oz_av] [facility] BP Diastolic 2019-12-30 00:00:00 65 mm[Hg] [facility] Height 2019-12-30 00:00:00 74 [in_i] [facility] BMI (Body Mass 2019-12-30 00:00:00 26.2 kg/m2 [facility] BP Systolic 2019-12-30 00:00:00 160 mm[Hg] [facility] Body Weight 2019-12-30 00:00:00 3265 [oz_av] [facility] BP Diastolic 2019-09-24 00:00:00 63 mm[Hg] [facility] Height 2019-09-24 00:00:00 74 [in_i] [facility] BMI (Body Mass 2019-09-24 00:00:00 27.2 kg/m2 [facility] BP Systolic 2019-09-24 00:00:00 185 mm[Hg] [facility] Body Weight 2019-09-24 00:00:00 3395 [oz_av] [facility] BP Diastolic 2019-08-24 00:00:00 66 mm[Hg] [facility] Height 2019-08-24 00:00:00 74 [in_i] [facility] BMI (Body Mass 2019-08-24 00:00:00 25.2 kg/m2 [facility] Medical Index) Group BP Systolic 2019-08-24 00:00:00 159 mm[Hg] [facility] Body Weight 2019-08-24 00:00:00 3136 [oz_av] [facility] BP Diastolic 2019-08-03 00:00:00 74 mm[Hg] [facility] Height 2019-08-03 00:00:00 74 [in_i] [facility] BMI (Body Mass 2019-08-03 00:00:00 24.7 kg/m2 [facility] Medical Index) Group BP Systolic 2019-08-03 00:00:00 156 mm[Hg] [facility] Body Weight 2019-08-03 00:00:00 3072 [oz_av] [facility] BP Diastolic 2019-07-29 00:00:00 77 mm[Hg] [facility] Height 2019-07-29 00:00:00 74 [in_i] [facility] BMI (Body Mass 2019-07-29 00:00:00 25.3 kg/m2 [facility] Medical Index) Group BP Systolic 2019-07-29 00:00:00 149 mm[Hg] [facility] Body Weight 2019-07-29 00:00:00 3152 [oz_av] [facility] BP Diastolic 2019-07-01 00:00:00 76 mm[Hg] [facility] Height 2019-07-01 00:00:00 74 [in_i] [facility] BMI (Body Mass 2019-07-01 00:00:00 26.9 kg/m2 [facility] Medical Index) Group BP Systolic 2019-07-01 00:00:00 195 mm[Hg] [facility] Body Weight 2019-07-01 00:00:00 3347 [oz_av] [facility] BP Diastolic 2019-06-15 00:00:00 64 mm[Hg] [facility] Height 2019-06-15 00:00:00 74 [in_i] [facility] BMI (Body Mass 2019-06-15 00:00:00 26.7 kg/m2 [facility] Medical Index) Group BP Systolic 2019-06-15 00:00:00 169 mm[Hg] [facility] Body Weight 2019-06-15 00:00:00 3328 [oz_av] [facility] BP Diastolic 2019-01-13 00:00:00 70 mm[Hg] [facility] Height 2019-01-13 00:00:00 74 [in_i] [facility] BMI (Body Mass 2019-01-13 00:00:00 27 kg/m2 [facility] Medical Index) Group BP Systolic 2019-01-13 00:00:00 148 mm[Hg] [facility] Body Weight 2019-01-13 00:00:00 3360 [oz_av] [facility] BP Diastolic 2019-01-09 00:00:00 62 mm[Hg] [facility] Height 2019-01-09 00:00:00 74 [in_i] [facility] BMI (Body Mass 2019-01-09 00:00:00 27 kg/m2 [facility] Medical Index) Group BP Systolic 2019-01-09 00:00:00 152 mm[Hg] [facility] Body Weight 2019-01-09 00:00:00 3360 [oz_av] [facility] BP Diastolic 2018-12-11 00:00:00 71 mm[Hg] [facility] Height 2018-12-11 00:00:00 74 [in_i] [facility] BMI (Body Mass 2018-12-11 00:00:00 26.7 kg/m2 [facility] Medical Index) Group BP Systolic 2018-12-11 00:00:00 160 mm[Hg] [facility] Body Weight 2018-12-11 00:00:00 3328 [oz_av] [facility] Respitory Rate 2018-11-12 17:27:00 Carmel Bermudez Temperature Oral (F) 2018-11-12 17:27:00 97.9 F [facility] Heart Rate 2018-11-12 17:27:00 Catracho Mancia Systolic (mm Hg) 2018-11-12 17:27:00 Desmond rial [place] Diastolic (mm Hg) 2018-11-12 17:27:00 Mem orial [facility] Systolic (mm Hg) 2018-11-12 13:50:00 Desmond rial [place] Diastolic (mm Hg) 2018-11-12 13:50:00 Mem orial [place] Heart Rate 2018-11-12 13:50:00 [facility] Respitory Rate 2018-11-12 13:50:00 Memori al [place] Temperature Oral (F) 2018-11-12 13:50:00 98.5 F [facility] [place] Respitory Rate 2018-11-12 11:44:00 Memori al [place] Systolic (mm Hg) 2018-11-12 11:44:00 Desmond rial [place] Diastolic (mm Hg) 2018-11-12 11:44:00 Mem orial [place] Temperature Oral (F) 2018-11-12 11:44:00 98.9 F [facility] Heart Rate 2018-11-12 11:44:00 [facility] [place] Height 2018-11-11 05:09:00 187.96 cm [facility] Weight 2018-11-11 05:09:00 [facility] [place] BMI Calculated 2018-11-11 05:09:00 Memori al [facility] Systolic (mm Hg) 2018-06-04 20:10:00 Desmond rial [place] Diastolic (mm Hg) 2018-06-04 20:10:00 Mem orial [facility] Respitory Rate 2018-06-04 20:10:00 Memori al [facility] Heart Rate 2018-06-04 20:10:00 [facility] Temperature Oral (F) 2018-06-04 20:10:00 98.0 F [facility] Temperature Oral (F) 2018-06-04 16:46:00 97.6 F [facility] Systolic (mm Hg) 2018-06-04 16:46:00 Desmond rial [place] Diastolic (mm Hg) 2018-06-04 16:46:00 Mem orial [place] Heart Rate 2018-06-04 16:46:00 [facility] [place] Respitory Rate 2018-06-04 16:46:00 Memori al [place] Temperature Oral (F) 2018-06-04 12:40:00 97.4 F [facility] Respitory Rate 2018-06-04 12:40:00 Memori al [place] Heart Rate 2018-06-04 12:40:00 [facility] [place] Systolic (mm Hg) 2018-06-04 12:40:00 Desmond rial [facility] Diastolic (mm Hg) 2018-06-04 12:40:00 Mem orial [place] Weight 2018-06-02 11:42:00 [facility] [place] Height 2018-06-02 11:42:00 187.96 cm [facility] BMI Calculated 2018-06-02 11:42:00 Memori al [place] Temperature Oral (F) 2018-04-13 14:11:00 98.4 F [facility] Heart Rate 2018-04-13 14:11:00 [facility] [place] Systolic (mm Hg) 2018-04-13 14:11:00 Desmond rial [facility] Diastolic (mm Hg) 2018-04-13 14:11:00 Mem orial [facility] Temperature Oral (F) 2018-04-13 09:10:00 97.0 F [facility] Systolic (mm Hg) 2018-04-13 09:10:00 Desmond rial [facility] Diastolic (mm Hg) 2018-04-13 09:10:00 Mem orial [place] Heart Rate 2018-04-13 09:10:00 [facility] [place] Temperature Oral (F) 2018-04-13 04:28:00 97.9 F [facility] Systolic (mm Hg) 2018-04-13 04:28:00 Desmond rial [facility] Diastolic (mm Hg) 2018-04-13 04:28:00 Mem orial [place] Heart Rate 2018-04-13 04:28:00 [facility] [place] Respitory Rate 2018-04-12 09:01:00 Memori al [facility] Respitory Rate 2018-04-12 06:09:00 Memori al [facility] Respitory Rate 2018-04-12 02:28:00 [facility] al [facility] BMI Calculated 2018-04-11 23:31:00 [facility] al [facility] Weight 2018-04-11 23:31:00 [facility] Height 2018-04-11 23:31:00 190.5 cm [facility] Weight 2018-04-11 18:42:00 [facility] BMI Calculated 2018-04-11 18:42:00 Memori al [place] Height 2018-04-11 18:42:00 187.96 cm [facility] Systolic (mm Hg) 2016-09-05 17:00:00 Desmond rial [place] Diastolic (mm Hg) 2016-09-05 17:00:00 Mem orial [place] Respitory Rate 2016-09-05 17:00:00 Memori al [place] Systolic (mm Hg) 2016-09-05 16:00:00 Desmond rial [place] Diastolic (mm Hg) 2016-09-05 16:00:00 Mem orial [facility] Respitory Rate 2016-09-05 16:00:00 Memori al [place] Systolic (mm Hg) 2016-09-05 15:00:00 Desmond rial [place] Diastolic (mm Hg) 2016-09-05 15:00:00 Mem orial [place] Respitory Rate 2016-09-05 13:00:00 Memori al [place] Temperature Oral (F) 2016-09-05 12:49:00 97.9 F [facility] [place] Temperature Oral (F) 2016-09-05 09:38:00 98.0 F [facility] [place] Height 2016-09-05 04:16:00 187.96 cm [facility] Temperature Oral (F) 2016-09-05 04:13:00 98.1 F [facility] Heart Rate 2016-09-04 17:42:00 [facility] [place] Heart Rate 2016-09-04 13:08:00 [facility] Heart Rate 2016-09-03 12:59:00 [facility] [place] Weight 2016-09-01 16:59:00 [facility] BMI Calculated 2016-09-01 16:59:00 Memori al [place] Height 2016-09-01 16:59:00 187.96 cm [facility] [place] Temperature Oral (F) 2015-10-11 21:27:00 97.4 F [facility] [place] Heart Rate 2015-10-11 21:27:00 [facility] [place] Systolic (mm Hg) 2015-10-11 21:27:00 Desmond rial [place] Diastolic (mm Hg) 2015-10-11 21:27:00 Mem orial [place] Respitory Rate 2015-10-11 21:27:00 Memori al [facility] Respitory Rate 2015-10-11 17:23:00 Memori al [place] Systolic (mm Hg) 2015-10-11 17:23:00 Desmond rial [place] Diastolic (mm Hg) 2015-10-11 17:23:00 Mem orial [place] Temperature Oral (F) 2015-10-11 17:23:00 97.5 F [facility] [place] Heart Rate 2015-10-11 17:23:00 [facility] [place] Systolic (mm Hg) 2015-10-11 13:37:00 Desmond rial [place] Diastolic (mm Hg) 2015-10-11 13:37:00 Mem orial [place] Respitory Rate 2015-10-11 13:37:00 Memori al [place] Heart Rate 2015-10-11 13:37:00 [facility] [place] Temperature Oral (F) 2015-10-11 13:37:00 97.7 F [facility] [place] BMI Calculated 2015-10-06 04:30:00 Memori al [place] Weight 2015-10-06 04:30:00 [facility] [place] Height 2015-10-06 04:30:00 187.96 cm [facility] [place] Height 2015-10-05 23:31:00 187.96 cm [facility] BMI Calculated 2015-10-05 23:31:00 Memori al [place] Weight 2015-10-05 23:31:00 [facility] [place] Systolic (mm Hg) 2015-06-19 13:30:00 Desmond rial [facility] Diastolic (mm Hg) 2015-06-19 13:30:00 Mem orial [facility] Heart Rate 2015-06-19 13:30:00 [facility] [place] Respitory Rate 2015-06-19 13:30:00 Memori al [place] Temperature Oral (F) 2015-06-19 13:30:00 98.8 F [facility] [place] Respitory Rate 2015-06-19 09:13:00 Memori al [facility] Heart Rate 2015-06-19 09:13:00 [facility] [place] Systolic (mm Hg) 2015-06-19 09:13:00 Desmond rial [place] Diastolic (mm Hg) 2015-06-19 09:13:00 Mem orial [facility] Respitory Rate 2015-06-19 04:23:00 Memori al [place] Systolic (mm Hg) 2015-06-19 04:23:00 Desmond rial [place] Diastolic (mm Hg) 2015-06-19 04:23:00 Mem orial [place] Heart Rate 2015-06-19 04:23:00 [facility] [place] Temperature Oral (F) 2015-06-18 17:56:00 97.5 F [facility] [place] Temperature Oral (F) 2015-06-18 15:17:00 97.5 F [facility] Weight 2015-06-12 22:16:00 [facility] BMI Calculated 2015-06-12 22:16:00 [facility] al [facility] Height 2015-06-12 22:16:00 187.96 cm [facility] Weight 2015-06-12 03:00:00 [facility] BMI Calculated 2015-06-12 03:00:00 [facility] al [facility] Height 2015-06-12 03:00:00 187.96 cm [facility] Respitory Rate 2015-05-31 20:01:00 Memori al [facility] Temperature Oral (F) 2015-05-31 20:01:00 97.8 F [facility] Heart Rate 2015-05-31 20:01:00 [facility] Systolic (mm Hg) 2015-05-31 20:01:00 Desmond rial [facility] Diastolic (mm Hg) 2015-05-31 20:01:00 Mem orial [place] Temperature Oral (F) 2015-05-31 16:32:00 98.6 F [facility] Respitory Rate 2015-05-31 16:32:00 Memori al [place] Systolic (mm Hg) 2015-05-31 16:32:00 Desmond rial [facility] Diastolic (mm Hg) 2015-05-31 16:32:00 Mem o[facility] Heart Rate 2015-05-31 16:32:00 [facility] [place] Respitory Rate 2015-05-31 12:54:00 Memori al [facility] Temperature Oral (F) 2015-05-31 12:54:00 97.7 F [facility] Heart Rate 2015-05-31 12:54:00 [facility] [place] Systolic (mm Hg) 2015-05-31 12:54:00 Desmond rial [place] Diastolic (mm Hg) 2015-05-31 12:54:00 Mem orial [place] BMI Calculated 2015-05-17 04:04:00 Memori al [place] Weight 2015-05-17 04:04:00 [facility] [place] Height 2015-05-17 04:04:00 187.96 cm [facility] Weight 2015-05-16 20:59:00 [facility] BMI Calculated 2015-05-16 20:59:00 [facility] Height 2015-05-16 20:59:00 187.96 cm [facility] Systolic (mm Hg) 2015-04-28 16:00:00 Desmond rial [place] Diastolic (mm Hg) 2015-04-28 16:00:00 Mem orial [place] Heart Rate 2015-04-28 16:00:00 [facility] Temperature Oral (F) 2015-04-28 16:00:00 97.9 F [facility] [place] Respitory Rate 2015-04-28 16:00:00 [facility] al [facility] Heart Rate 2015-04-28 12:00:00 [facility] [place] Temperature Oral (F) 2015-04-28 12:00:00 97.9 F [facility] [place] Respitory Rate 2015-04-28 12:00:00 [facility] Systolic (mm Hg) 2015-04-28 12:00:00 Desmond rial [facility] Diastolic (mm Hg) 2015-04-28 12:00:00 Mem orial [place] Heart Rate 2015-04-28 09:16:00 [facility] [place] Respitory Rate 2015-04-28 09:16:00 [facility]ori al [place] Temperature Oral (F) 2015-04-28 09:16:00 97.8 F [facility] Systolic (mm Hg) 2015-04-28 09:16:00 Desmond rial [place] Diastolic (mm Hg) 2015-04-28 09:16:00 Mem [facility] Weight 2015-04-06 12:51:00 [facility] BMI Calculated 2015-04-06 12:51:00 [facility] Height 2015-04-06 12:51:00 187.96 cm [facility] [place] Weight 2015-04-06 09:04:00 [facility] Temperature Oral (F) 2015-04-04 11:00:00 98.6 F [facility] [place] Respitory Rate 2015-04-04 11:00:00 [facility] Heart Rate 2015-04-04 11:00:00 [facility] Systolic (mm Hg) 2015-04-04 11:00:00 Desmond rial [facility] Diastolic (mm Hg) 2015-04-04 11:00:00 Mem orial [place] Systolic (mm Hg) 2015-04-04 08:56:00 Desmond rial [place] Diastolic (mm Hg) 2015-04-04 08:56:00 Mem [facility] Temperature Oral (F) 2015-04-04 08:56:00 97.9 F [facility] [place] Heart Rate 2015-04-04 08:56:00 [facility] Respitory Rate 2015-04-04 08:56:00 Memori al [place] Systolic (mm Hg) 2015-04-04 04:26:00 Desmond carmita [facility] Diastolic (mm Hg) 2015-04-04 04:26:00 Mem [facility] Respitory Rate 2015-04-04 04:26:00 [facility] Heart Rate 2015-04-04 04:26:00 [facility] Temperature Oral (F) 2015-04-04 04:26:00 98.5 F [facility] BMI Calculated 2015-03-29 05:30:00 [facility] Weight 2015-03-29 05:30:00 [facility] Height 2015-03-29 05:30:00 190.5 cm [facility] [place] BMI Calculated 2015-03-28 17:07:00 [facility] [place] Weight 2015-03-28 17:07:00 [facility] Height 2015-03-28 17:07:00 190.5 cm [facility] Procedures Procedure Date / Time Performing Clinician Source Performed Pacemaker 2019-11-22 00:00:00 [facility] dical Group Placement of Stent 2017-11-18 00:00:00 [facility] Chemotherapy by Infusion 2017-11-18 00:00:00 [facility] Circumcision 2017-11-18 00:00:00 [facility] dical Group Excision of Squamous Cell 2016-11-18 00:00:00 Ari brito [facility] Carcinoma Group Hernia Repair 2016-11-18 00:00:00 [facility] dical Group Screening for Malignant 2015-11-18 00:00:00 [facility] Neoplasm of Skin Group Amputation<sup>1</sup> 2015-05-30 05:00:00 Samaraor ial [facility] Exploratory 2015-04-06 05:00:00 [facility] laparotomy<sup>2</sup> Partial resection of 2015-03-30 05:00:00 Shereen Mancia colon<sup>3</sup> Gastrointestinal Repair 2014-11-18 00:00:00 [facility] Col[facility] 2014-11-18 00:00:00 [facility] Procedure on Gallbladder 2014-11-18 00:00:00 [facility] Cholecystectomy [facility] Skin [facility] Repair of Hydrocele [facility] d[facility] Group Plan of Care Planned Activity Planned Date Details Comments Source Future Scheduled 2020-06-18 INFLUENZA VACCINE [place] [facility] 00:00:00 [code = INFLUENZA VACCINE] Future Scheduled 2005 65+ PNEUMOCOCCAL [place] [facility] 00:00:00 VACCINE (1 of 1 - PPSV23) [code = 65+ PNEUMOCOCCAL VACCINE (1 of 1 - PPSV23)] Future Scheduled 1990 SHINGLES VACCINES (#1) [place] [facility] 00:00:00 [code = SHINGLES VACCINES (#1)] Future Scheduled 1956 COVID-19 VACCINE (1 of [place] [facility] 00:00:00 2) [code = COVID-19 VACCINE (1 of 2)] Encounters Start End Encounter Admission Attending Care Care Encounter Source Date/Time Date/Time Type Type Clinicians Facility Department ID 2020-07-01 2020-07-01 Outpatient Ball, [id number] 10:22:00 23:59:00 Felice [id number] [place] [address] [id number] 2020-06-07 2020-06-07 Lalito DUMAS [place] - [id number] M at[facility]or 00:00:00 00:00:00 MD Braulio: Discovery roman [facility] [address], [facility] [place] [address] , Ph. 2020-02-24 2020-02-24 Lalito [place]UMAS [place] - [id number] M at[facility] 00:00:00 00:00:00 MD Braulio: Discovery roman [facility] - [address], [facility] [place] [address] , Ph. 2020-01-26 2020-01-26 Lalito DUMAS [place] - [id number] M at[facility] 00:00:00 00:00:00 MD Braulio: Discovery da [address], [facility] [place] [address] , Ph. 2020-01-19 2020-01-19 Lalito [place]UMAS [place] - [id number] M at[place]or 00:00:00 00:00:00 MD Braulio: [address] [place] - [address], [facility] [place] [address] , Ph. 2020-01-06 2020-01-06 Lalito DUMAS [place] - [id number] M atagor 00:00:00 00:00:00 MD Braulio: [address] [place] - [address], [facility] [place] [address] , Ph. 2019-12-30 2019-12-30 Lalito DUMAS [place] - [id number] M at[facility]or 00:00:00 00:00:00 MD Braulio: [address] [place] - [address], [facility] [place] [address] , Ph. 2019-09-24 2019-09-24 Lalito DUMAS [place] - [id number] M at[facility]or 00:00:00 00:00:00 MD Braulio: [address] [place] - [address], [facility] [place] [address] , Ph. 2019-08-24 2019-08-24 Lalito DUMAS [place] - [id number] M atagor 00:00:00 00:00:00 MD Braulio: [address] [place] - [address], [facility] [place] [address] , Ph. 2019-08-03 2019-08-03 Lalito DUMAS [place] - [id number] M atagor 00:00:00 00:00:00 MD Braulio: [address] [place] - [address], [facility] [place] [address] , Ph. 2019-07-29 2019-07-29 Lalito Lester MM [place] - [id number] M atagor 00:00:00 00:00:00 MD Braulio: [address] - [address], [facility] [place] [address] , Ph. 2019-07-01 2019-07-01 Sammie DUMAS [place] - [id number] M atagor 00:00:00 00:00:00 Discovery pili Day [employer]ER: [address] [place] [address], [place] - [address], [facility] [place] [address] , Ph. 2019-06-15 2019-06-15 Lalito Lester MM [place] - [id number] M atagor 00:00:00 00:00:00 MD Braulio: [address], [place] - [address], [facility] [address] , Ph. 2019-01-13 2019-01-13 Lalito Lester MM [place] - [id number] M atagor 00:00:00 00:00:00 MD Braulio: [address], [place] - [address], [facility] [address] , Ph. 2019-01-09 2019-01-09 Lalito DUMAS [place] - [id number] M atagor 00:00:00 00:00:00 MD Braulio: [address], [place] - [address], [facility], [place] [address] , Ph. 2018-12-11 2018-12-11 Lalito DUMAS [place] - [id number] M atagor 00:00:00 00:00:00 MD Braulio: [address], [place] - [address], [facility], [place] [address] , Ph. 2018-11-10 2018-11-12 Outpatient RAMON Tijerina [facility] [id number] 23:07:00 15:23:00 Shon Trimble 07 2018-06-02 2018-06-04 Outpatient Celso, MHSL MHSL [id number] 06:20:32 15:56:00 Luz 2018-06-02 2018-06-04 Outpatient Celso, MHSL MHSL [id number] 06:20:00 15:56:00 Luz 2018-04-11 2018-04-13 Outpatient Rehan Sarkar MHSL MHSL [id number] 13:31:00 14:50:00 Joseluis 2016-09-01 2016-09-05 Outpatient Cordell, MHSL MHSL [id number] 11:56:00 12:28:00 Rarollya 2015-10-05 2015-10-11 Outpatient Cherry, MHSL MHSL [id number] 17:23:00 17:30:00 Mustaq 03 [facility] 2015-07-08 2015-07-08 Outpatient Santana, MH29 MH29 [id number] 07:49:00 23:59:00 Ruben 01 Charly 2015-06-13 2015-06-19 Outpatient Cherry, MHSL MHSL [id number] 18:06:00 13:05:00 Mustaq 06 [facility] 2015-05-16 2015-05-31 Outpatient Vicky, MHSL MHSL [id number] 15:52:00 15:21:00 Gio Ken 2015-04-06 2015-04-28 Outpatient Cherry, MHHS HS [id number] 03:56:00 12:40:00 Mustaq 01 [facility] 2015-03-28 2015-04-04 Outpatient Posani, HS MHHS [id number] 11:54:00 13:20:00 Britt 00 Results Test [...] volume] (test 96.4 fL 83-100 code = 08991-6) mean corpuscular hemoglobin (test code = mean [...] Blood (test code = 67.7 % 44.7-82.4 23005-8) Granulocytes Immature [#/volume] in Blood (test code = 0.0 K/uL 0.0-0.03 28216-8) lymphocyte% (test code = lymphocyte%) 13.8 % 10.0-50.0 mono % (test code = mono %) 10.6 % 3.9-13.4 eos % (test code = eos %) 6.6 % 0.0-6.4 H Basophils/100 leukocytes in Unspecified specimen (test code 0.9 % 0.2-1.2 = 46001-6) Neutrophils.band form [#/volume] in Blood (test code = 4.52 K/uL 1.78-5.38 44665-2) Lymphocytes [#/volume] in Unspecified specimen by Automated 0.9 K/uL 1.32-3.57 L count (test code = 29630-8) mono # (test code = mono #) 0.71 K/uL 0.30-0.82 eos # (test code = eos #) 0.44 K/uL 0.04-0.54 basophil # (test code = basophil #) 0.06 K/uL 0.01-0.08 NRBC% (test code = NRBC%) 0 /100 WBC 0-0.2 NRBC# (test code = NRBC#) 0 K/uL [id number] 09:37:00 Test Item Value Reference Range Interpretation Comments prothrombin time (test code = 10.3 seconds 10.3-12.3 prothrombin time) INR in Blood by Coagulation 0.95 assay (test code = 09939-7) [facility] [id number] 09:37:00 Test Item Value Reference Range Interpretation Comments INR in Blood by Coagulation 29.1 seconds 22.5-37.0 assay (test code = 87234-2) [facility] CenterThyrotropin [Units/volume] in Serum or [id number] 09:37:00 Test Item Value Reference Range Interpretation Comments Thyrotropin [Units/volume] in 2.98 uIU/mL 0.36-3.74 Serum or Plasma (test code = 3016-3) [facility] CenterHemoglobin A1c [Mass/volume] in [id number] 09:37:00 Test Item Value Reference Range Interpretation Comments Hemoglobin A1c [Mass/volume] in Blood 4.9 % 4.0-6.0 (test code = 66978-8) [facility]Comprehensive metabolic 2000 panel - Serum or Plasma [...] Serum or Plasma (test code = 6768-6) [facility]Lipid 1996 panel - Serum or [id number] 09:37:00 Test Item Value Reference Range Interpretation Comments cholesterol level (test code = 104 mg/dL 150-200 L cholesterol level) triglycerides level (test code = 92 mg/dL <150 triglycerides level) HDL cholesterol (test code = HDL 36 mg/dL >55 L cholesterol) LDL cholesterol direct (test code = 55 mg/dL <100 LDL cholesterol direct) cholesterol risk ratio (test code = 2.888 cholesterol risk ratio) [facility]Urinal[facility] complete W Reflex Culture panel - Urine 2020-01-01 09:37:00 Test Item Value Reference Range Interpretation Comments Color of Urine by Auto (test lt. yellow code = 37059-7) Appearance of Urine (test code clear clear = 5767-9) Glucose [Mass/volume] in Urine negative negative (test code = 2350-7) bilirubin, urine (test code = negative negative bilirubin, urine) ketone, urine (test code = negative negative ketone, urine) Specific gravity of Urine by 1.015 1.003-1.030 Automated test strip (test code = 29481-0) Hemoglobin [Presence] in Urine large negative H by Test strip (test code = 5794-3) pH of Urine (test code = 6.000 5-9 2756-5) protein urine (UA) (test code = negative negative protein urine (UA)) Urobilinogen [Presence] in 0.2 E.U./dL 0.2-1.0 Urine (test code = 54605-4) Nitrite [Presence] in Urine by negative negative Test strip (test code = 5802-4) urine leukocyte esterase (test negative negative code = urine leukocyte esterase) Erythrocytes [Presence] in =0-3 0-5 Urine (test code = 03527-3) WBC, urine (test code = WBC, =0-2 0-5 urine) Epithelial cells [Presence] in =0-5 0-5 Urine sediment by Light microscopy (test code = 44907-7) bacteria, urine (test code = none detected none detect bacteria, urine) urine culture added? (test code no = urine culture added?) [facility] W Auto Differential panel - [id number] 09:37:00 Test Item Value Reference Range Interpretation Comments white blood count (test code = 6.7 K/uL 4.0-12.3 white blood count) red blood count (test code = red 3.05 M/uL 3.80-5.80 L blood count) hemoglobin (test code = 9.3 g/dL 11.7-17.2 L hemoglobin) hematocrit (test code = 29.4 % 35.0-51.0 L hematocrit) Erythrocyte mean corpuscular 96.4 fL 83-100 volume [Entitic volume] (test code = 30896-4) mean corpuscular hemoglobin (test 30.5 pg 26.8-33.4 [...] 44.7-82.4 leukocytes in Blood (test code = 59919-5) Granulocytes Immature [#/volume] 0.0 K/uL 0.0-0.03 in Blood (test code = 45647-6) lymphocyte% (test code = 13.8 % 10.0-50.0 lymphocyte%) mono % (test code = mono %) 10.6 % 3.9-13.4 eos % (test code = eos %) 6.6 % 0.0-6.4 H Basophils/100 leukocytes in 0.9 % 0.2-1.2 Unspecified specimen (test code = 95652-3) Neutrophils.band form [#/volume] 4.52 K/uL 1.78-5.38 in Blood (test code = 72624-6) Lymphocytes [#/volume] in 0.9 K/uL 1.32-3.57 L Unspecified specimen by Automated count (test code = 31075-1) mono # (test code = mono #) 0.71 K/uL 0.30-0.82 eos # (test code = eos #) 0.44 K/uL 0.04-0.54 basophil # (test code = basophil 0.06 K/uL 0.01-0.08 #) NRBC% (test code = NRBC%) 0 /100 WBC 0-0.2 NRBC# (test code = NRBC#) 0 K/uL [facility]PT/[id number] 09:37:00 Test Item Value Reference Range Interpretation Comments prothrombin time (test code = 10.3 seconds 10.3-12.3 prothrombin time) INR in Blood by Coagulation 0.95 assay (test code = 82242-5) [facility]partial thromb[facility]in [id number] 09:37:00 Test Item Value Reference Range Interpretation Comments INR in Blood by Coagulation 29.1 seconds 22.5-37.0 assay (test code = 10346-4) [facility] CenterThyrotropin [Units/volume] in Serum or [id number] 09:37:00 Test Item Value Reference Range Interpretation Comments Thyrotropin [Units/volume] in 2.98 uIU/mL 0.36-3.74 Serum or Plasma (test code = 3016-3) [facility] CenterHemoglobin A1c [Mass/volume] in [id number] 09:37:00 Test Item Value Reference Range Interpretation Comments Hemoglobin A1c [Mass/volume] in Blood 4.9 % 4.0-6.0 (test code = 60164-7) [facility]Comprehensive metabolic 1999 panel - Serum or Plasma 2020-01-01 09:37:00 [...] Serum or Plasma (test code = 6768-6) [facility] CenterLipid 1995 panel - Serum or [id number] 09:37:00 Test Item Value Reference Range Interpretation Comments cholesterol level (test code = 104 mg/dL 150-200 L cholesterol level) triglycerides level (test code = 92 mg/dL <150 triglycerides level) HDL cholesterol (test code = HDL 36 mg/dL >55 L cholesterol) LDL cholesterol direct (test code = 55 mg/dL <100 LDL cholesterol direct) cholesterol risk ratio (test code = 2.888 cholesterol risk ratio) [facility]Urinal[facility] complete W Reflex Culture panel - Urine 2020-01-01 09:37:00 Test Item Value Reference Range Interpretation Comments Color of Urine by Auto (test lt. yellow code = 46425-6) Appearance of Urine (test code clear clear = 5767-9) Glucose [Mass/volume] in Urine negative negative (test code = 2350-7) bilirubin, urine (test code = negative negative bilirubin, urine) ketone, urine (test code = negative negative ketone, urine) Specific gravity of Urine by 1.015 1.003-1.030 Automated test strip (test code = 09965-4) Hemoglobin [Presence] in Urine large negative H by Test strip (test code = 5794-3) pH of Urine (test code = 6.000 5-9 2756-5) protein urine (UA) (test code = negative negative protein urine (UA)) Urobilinogen [Presence] in 0.2 E.U./dL 0.2-1.0 Urine (test code = 17919-2) Nitrite [Presence] in Urine by negative negative Test strip (test code = 5802-4) urine leukocyte esterase (test negative negative code = urine leukocyte esterase) Erythrocytes [Presence] in =0-3 0-5 Urine (test code = 36328-7) WBC, urine (test code = WBC, =0-2 0-5 urine) Epithelial cells [Presence] in =0-5 0-5 Urine sediment by Light microscopy (test code = 40916-2) bacteria, urine (test code = none detected none detect bacteria, urine) urine culture added? (test code no = urine culture added?) [facility] W Auto Differential panel - [id number] 09:37:00 Test Item Value Reference Range Interpretation Comments white blood count (test code = 6.7 K/uL 4.0-12.3 white blood count) red blood count (test code = red 3.05 M/uL 3.80-5.80 L blood count) hemoglobin (test code = 9.3 g/dL 11.7-17.2 L hemoglobin) hematocrit (test code = 29.4 % 35.0-51.0 L hematocrit) Erythrocyte mean corpuscular 96.4 fL 83-100 volume [Entitic volume] (test code = 46313-8) mean corpuscular hemoglobin (test 30.5 pg 26.8-33.4 [...] 44.7-82.4 leukocytes in Blood (test code = 63457-9) Granulocytes Immature [#/volume] 0.0 K/uL 0.0-0.03 in Blood (test code = 86982-9) lymphocyte% (test code = 13.8 % 10.0-50.0 lymphocyte%) mono % (test code = mono %) 10.6 % 3.9-13.4 eos % (test code = eos %) 6.6 % 0.0-6.4 H Basophils/100 leukocytes in 0.9 % 0.2-1.2 Unspecified specimen (test code = 92562-2) Neutrophils.band form [#/volume] 4.52 K/uL 1.78-5.38 in Blood (test code = 98669-2) Lymphocytes [#/volume] in 0.9 K/uL 1.32-3.57 L Unspecified specimen by Automated count (test code = 70630-4) mono # (test code = mono #) 0.71 K/uL 0.30-0.82 eos # (test code = eos #) 0.44 K/uL 0.04-0.54 basophil # (test code = basophil 0.06 K/uL 0.01-0.08 #) NRBC% (test code = NRBC%) 0 /100 WBC 0-0.2 NRBC# (test code = NRBC#) 0 K/uL [facility]PT/[id number] 09:37:00 Test Item Value Reference Range Interpretation Comments prothrombin time (test code = 10.3 seconds 10.3-12.3 prothrombin time) INR in Blood by Coagulation 0.95 assay (test code = 97685-8) [facility]partial thromboplastin [id number] 09:37:00 Test Item Value Reference Range Interpretation Comments INR in Blood by Coagulation 29.1 seconds 22.5-37.0 assay (test code = 70057-7) [facility] CenterThyrotropin [Units/volume] in Serum or [id number] 09:37:00 Test Item Value Reference Range Interpretation Comments Thyrotropin [Units/volume] in 2.98 uIU/mL 0.36-3.74 Serum or Plasma (test code = 3016-3) [facility] CenterHemoglobin A1c [Mass/volume] in [id number] 09:37:00 Test Item Value Reference Range Interpretation Comments Hemoglobin A1c [Mass/volume] in Blood 4.9 % 4.0-6.0 (test code = 27142-9) [facility] CenterComprehensive metabolic 2000 panel - Serum or Plasma [...] Serum or Plasma (test code = 6768-6) [facility] CenterLipid 1996 panel - Serum or [id number] 09:37:00 Test Item Value Reference Range Interpretation Comments cholesterol level (test code = 104 mg/dL 150-200 L cholesterol level) triglycerides level (test code = 92 mg/dL <150 triglycerides level) HDL cholesterol (test code = HDL 36 mg/dL >55 L cholesterol) LDL cholesterol direct (test code = 55 mg/dL <100 LDL cholesterol direct) cholesterol risk ratio (test code = 2.888 cholesterol risk ratio) [facility] CenterUrinalysis complete W Reflex Culture panel - Urine 2020-01-01 09:37:00 Test Item Value Reference Range Interpretation Comments Color of Urine by Auto (test lt. yellow code = 08707-6) Appearance of Urine (test code clear clear = 5767-9) Glucose [Mass/volume] in Urine negative negative (test code = 2350-7) bilirubin, urine (test code = negative negative bilirubin, urine) ketone, urine (test code = negative negative ketone, urine) Specific gravity of Urine by 1.015 1.003-1.030 Automated test strip (test code = 72452-6) Hemoglobin [Presence] in Urine large negative H by Test strip (test code = 5794-3) pH of Urine (test code = 6.000 5-9 2756-5) protein urine (UA) (test code = negative negative protein urine (UA)) Urobilinogen [Presence] in 0.2 E.U./dL 0.2-1.0 Urine (test code = 34286-9) Nitrite [Presence] in Urine by negative negative Test strip (test code = 5802-4) urine leukocyte esterase (test negative negative code = urine leukocyte esterase) Erythrocytes [Presence] in =0-3 0-5 Urine (test code = 43193-6) WBC, urine (test code = WBC, =0-2 0-5 urine) Epithelial cells [Presence] in =0-5 0-5 Urine sediment by Light microscopy (test code = 93962-1) bacteria, urine (test code = none detected none detect bacteria, urine) urine culture added? (test code no = urine culture added?) [facility] W Auto Differential panel - [id number] 09:37:00 Test Item Value Reference Range Interpretation Comments white blood count (test code = 6.7 K/uL 4.0-12.3 white blood count) red blood count (test code = red 3.05 M/uL 3.80-5.80 L blood count) hemoglobin (test code = 9.3 g/dL 11.7-17.2 L hemoglobin) hematocrit (test code = 29.4 % 35.0-51.0 L hematocrit) Erythrocyte mean corpuscular 96.4 fL 83-100 volume [Entitic volume] (test code = 35259-6) mean corpuscular hemoglobin (test 30.5 pg 26.8-33.4 [...] 44.7-82.4 leukocytes in Blood (test code = 65360-8) Granulocytes Immature [#/volume] 0.0 K/uL 0.0-0.03 in Blood (test code = 30293-5) lymphocyte% (test code = 13.8 % 10.0-50.0 lymphocyte%) mono % (test code = mono %) 10.6 % 3.9-13.4 eos % (test code = eos %) 6.6 % 0.0-6.4 H Basophils/100 leukocytes in 0.9 % 0.2-1.2 Unspecified specimen (test code = 76477-0) Neutrophils.band form [#/volume] 4.52 K/uL 1.78-5.38 in Blood (test code = 28373-9) Lymphocytes [#/volume] in 0.9 K/uL 1.32-3.57 L Unspecified specimen by Automated count (test code = 15631-8) mono # (test code = mono #) 0.71 K/uL 0.30-0.82 eos # (test code = eos #) 0.44 K/uL 0.04-0.54 basophil # (test code = basophil 0.06 K/uL 0.01-0.08 #) NRBC% (test code = NRBC%) 0 /100 WBC 0-0.2 NRBC# (test code = NRBC#) 0 K/uL [facility]PT/[id number] 09:37:00 Test Item Value Reference Range Interpretation Comments prothrombin time (test code = 10.3 seconds 10.3-12.3 prothrombin time) INR in Blood by Coagulation 0.95 assay (test code = 66462-4) [facility]partial thromboplastin [id number] 09:37:00 Test Item Value Reference Range Interpretation Comments INR in Blood by Coagulation 29.1 seconds 22.5-37.0 assay (test code = 52676-8) [facility] CenterThyrotropin [Units/volume] in Serum or [id number] 09:37:00 Test Item Value Reference Range Interpretation Comments Thyrotropin [Units/volume] in 2.98 uIU/mL 0.36-3.74 Serum or Plasma (test code = 3016-3) [facility] CenterHemoglobin A1c [Mass/volume] in [id number] 09:37:00 Test Item Value Reference Range Interpretation Comments Hemoglobin A1c [Mass/volume] in Blood 4.9 % 4.0-6.0 (test code = 68916-4) [facility] CenterComprehensive metabolic 2000 panel - Serum or Plasma [...] Serum or Plasma (test code = 6768-6) [facility] CenterLipid 1996 panel - Serum or [id number] 09:37:00 Test Item Value Reference Range Interpretation Comments cholesterol level (test code = 104 mg/dL 150-200 L cholesterol level) triglycerides level (test code = 92 mg/dL <150 triglycerides level) HDL cholesterol (test code = HDL 36 mg/dL >55 L cholesterol) LDL cholesterol direct (test code = 55 mg/dL <100 LDL cholesterol direct) cholesterol risk ratio (test code = 2.888 cholesterol risk ratio) [facility] CenterUrinalysis complete W Reflex Culture panel - Urine 2020-01-01 09:37:00 Test Item Value Reference Range Interpretation Comments Color of Urine by Auto (test lt. yellow code = 37453-6) Appearance of Urine (test code clear clear = 5767-9) Glucose [Mass/volume] in Urine negative negative (test code = 2350-7) bilirubin, urine (test code = negative negative bilirubin, urine) ketone, urine (test code = negative negative ketone, urine) Specific gravity of Urine by 1.015 1.003-1.030 Automated test strip (test code = 35575-5) Hemoglobin [Presence] in Urine large negative H by Test strip (test code = 5794-3) pH of Urine (test code = 6.000 5-9 2756-5) protein urine (UA) (test code = negative negative protein urine (UA)) Urobilinogen [Presence] in 0.2 E.U./dL 0.2-1.0 Urine (test code = 46317-3) Nitrite [Presence] in Urine by negative negative Test strip (test code = 5802-4) urine leukocyte esterase (test negative negative code = urine leukocyte esterase) Erythrocytes [Presence] in =0-3 0-5 Urine (test code = 29846-7) WBC, urine (test code = WBC, =0-2 0-5 urine) Epithelial cells [Presence] in =0-5 0-5 Urine sediment by Light microscopy (test code = 08983-8) bacteria, urine (test code = none detected none detect bacteria, urine) urine culture added? (test code no = urine culture added?) [facility] Centermleveli2019-09-30 11:20:00 Test Item Value Reference Range Interpretation Comments Surgical pathology see separate pathology study (test code = report. 84691-7) [facility] CenterMethicillin resistant Staphylococcus aureus [Presence] in Unspecified specimen by Organism specific [id number] 06:40:00Results [facility]CB W Auto Differential panel - [id number] 01:50:00 Test Item Value Reference Range Interpretation Comments white blood count (test code = 4.1 K/uL 4.0-12.3 white blood count) red blood count (test code = red 2.91 M/uL 3.80-5.80 L blood count) hemoglobin (test code = 9.3 g/dL 11.7-17.2 L hemoglobin) hematocrit (test code = 28.5 % 35.0-51.0 L hematocrit) Erythrocyte mean corpuscular 97.9 fL 83-100 volume [Entitic volume] (test code = 01910-6) mean corpuscular hemoglobin (test 32.0 pg 26.8-33.4 [...] 44.7-82.4 leukocytes in Blood (test code = 79428-9) Granulocytes Immature [#/volume] 0.0 K/uL 0.0-0.03 in Blood (test code = 34073-5) lymphocyte% (test code = 23.4 % 10.0-50.0 lymphocyte%) mono % (test code = mono %) 9.4 % 3.9-13.4 eos % (test code = eos %) 4.4 % 0.0-6.4 Basophils/100 leukocytes in 0.5 % 0.2-1.2 Unspecified specimen (test code = 87743-1) Neutrophils.band form [#/volume] 2.52 K/uL 1.78-5.38 in Blood (test code = 17931-8) Lymphocytes [#/volume] in 1.0 K/uL 1.32-3.57 L Unspecified specimen by Automated count (test code = 07401-6) mono # (test code = mono #) 0.38 K/uL 0.30-0.82 eos # (test code = eos #) 0.18 K/uL 0.04-0.54 basophil # (test code = basophil 0.02 K/uL 0.01-0.08 #) NRBC% (test code = NRBC%) 0 /100 WBC 0-0.2 NRBC# (test code = NRBC#) 0 K/uL [facility]differential panel, [id number] 01:50:00 NeutrophilsBandLymphocyteAtypical LymphMonocyteEosinophilBasophilDifferential CommentPlatelet EstimatePlatelet MorphologyPoikilocytosisToxic GranulationBurr CellsMaMagnolia Regional Health CenterBasic metabolic 2000 panel - Serum or Plasma [...] = calcium 8.5 mg/dL 8.8-10.2 L level) [facility] CenterUrinalysis complete panel - [id number] 12:59:00 Test Item Value Reference Range Interpretation Comments Color of Urine by Auto (test colorless code = 03465-9) Appearance of Urine (test code clear clear = 5767-9) Glucose [Presence] in Urine by negative negative Automated test strip (test code = 61245-0) Bilirubin.total [Mass/volume] negative negative in Urine (test code = 1978-6) Ketones [Mass/volume] in Urine negative negative by Automated test strip (test code = 12004-0) Specific gravity of Urine by 1.011 1.003-1.030 Automated test strip (test code = 04248-6) blood urine (test code = blood negative negative urine) pH of Urine (test code = 5.000 5-9 2756-5) protein urine (UA) (test code = negative negative protein urine (UA)) Urobilinogen [Presence] in normal 0.2-1.0 Urine (test code = 19424-0) Nitrite [Presence] in Urine by negative negative Test strip (test code = 5802-4) Leukocyte esterase [Presence] negative negative in Urine by Automated test strip (test code = 71020-9) Erythrocytes [#/volume] in =1-5 0-5 Urine by Automated count (test code = 798-9) Leukocytes [#/area] in Urine <1 0-5 sediment by Automated count (test code = 55957-4) Epithelial cells [Presence] in <1 0-5 Urine sediment by Light microscopy (test code = 37372-4) Bacteria identified in Urine by none detected none detect Culture (test code = 630-4) Casts [#/area] in Urine none detected none detect sediment by Automated count (test code = 05165-0) urine culture added? (test code no = urine culture added?) [facility]CB W Auto Differential panel - [id number] 01:58:00 Test Item Value Reference Range Interpretation Comments white blood count (test code = 5.6 K/uL 4.0-12.3 white blood count) red blood count (test code = red 3.24 M/uL 3.80-5.80 L blood count) hemoglobin (test code = 10.3 g/dL 11.7-17.2 L hemoglobin) hematocrit (test code = 30.9 % 35.0-51.0 L hematocrit) Erythrocyte mean corpuscular 95.4 fL 83-100 volume [Entitic volume] (test code = 34472-5) mean corpuscular hemoglobin (test 31.8 pg 26.8-33.4 [...] 44.7-82.4 leukocytes in Blood (test code = 52881-2) Granulocytes Immature [#/volume] 0.0 K/uL 0.0-0.03 in Blood (test code = 76894-4) lymphocyte% (test code = 17.4 % 10.0-50.0 lymphocyte%) mono % (test code = mono %) 7.1 % 3.9-13.4 eos % (test code = eos %) 3.9 % 0.0-6.4 Basophils/100 leukocytes in 0.4 % 0.2-1.2 Unspecified specimen (test code = 13814-8) Neutrophils.band form [#/volume] 3.99 K/uL 1.78-5.38 in Blood (test code = 34238-8) Lymphocytes [#/volume] in 1.0 K/uL 1.32-3.57 L Unspecified specimen by Automated count (test code = 43310-9) mono # (test code = mono #) 0.40 K/uL 0.30-0.82 eos # (test code = eos #) 0.22 K/uL 0.04-0.54 basophil # (test code = basophil 0.02 K/uL 0.01-0.08 #) NRBC% (test code = NRBC%) 0 /100 WBC 0-0.2 NRBC# (test code = NRBC#) 0 K/uL [facility] metabolic 2000 panel - Serum or [id number] 01:58:00 Test Item Value Reference Range Interpretation [...] = calcium 8.6 mg/dL 8.8-10.2 L level) [facility] W Auto Differential panel - [id number] 03:36:00 Test Item Value Reference Range Interpretation [...] H volume [Entitic volume] (test code = 58697-8) mean corpuscular hemoglobin (test 32.0 pg 26.8-33.4 [...] 44.7-82.4 leukocytes in Blood (test code = 43095-7) Granulocytes Immature [#/volume] 0.0 K/uL 0.0-0.03 in Blood (test code = 47044-6) lymphocyte% (test code = 19.0 % 10.0-50.0 lymphocyte%) mono % (test code = mono %) 8.6 % 3.9-13.4 eos % (test code = eos %) 2.1 % 0.0-6.4 Basophils/100 leukocytes in 0.4 % 0.2-1.2 Unspecified specimen (test code = 68233-2) Neutrophils.band form [#/volume] 3.33 K/uL 1.78-5.38 in Blood (test code = 62623-4) Lymphocytes [#/volume] in 0.9 K/uL 1.32-3.57 L Unspecified specimen by Automated count (test code = 32898-6) mono # (test code = mono #) 0.41 K/uL 0.30-0.82 eos # (test code = eos #) 0.10 K/uL 0.04-0.54 basophil # (test code = basophil 0.02 K/uL 0.01-0.08 #) NRBC% (test code = NRBC%) 0 /100 WBC 0-0.2 NRBC# (test code = NRBC#) 0 K/uL [facility]differential panel, [id number] 03:36:00 NeutrophilsBandLymphocyteAtypical LymphMonocyteEosinophilBasophilPlatelet EstimatePlatelet MorphologyMacrocytosisToxic GranulationSmudge CellsMaMagnolia Regional Health CenterComprehensive metabolic 2000 panel - Serum or [id number] 03:36:00 Test Item Value Reference Range Interpretation [...] Serum or Plasma (test code = 6768-6) [facility] GroupMagnesium [Moles/volume] in Unspecified specimen 2019-08-14 03:36:00 Test Item Value Reference Range Interpretation Comments magnesium level (test code = 1.8 mg/dL 1.6-2.4 magnesium level) [facility] GroupNatriuretic peptide.B prohormone N-Terminal [Mass/volume] in Serum or Spflrk2068-90-66 03:36:00 Test Item Value Reference Range Interpretation Comments N-term pro natriuretic peptide 3837 pg/mL 0-450 H (test code = N-term pro natriuretic peptide) [facility] GroupCBC W Auto Differential panel - Narfr3394-23-81 09:26:00 Test Item Value Reference Range Interpretation Comments white blood count (test code = 7.1 K/uL 4.0-12.3 white blood count) red blood count (test code = red 3.50 M/uL 3.80-5.80 L blood count) hemoglobin (test code = 11.2 g/dL 11.7-17.2 L hemoglobin) hematocrit (test code = 34.3 % 35.0-51.0 L hematocrit) Erythrocyte mean corpuscular 98.0 fL 83-100 volume [Entitic volume] (test code = 64748-9) mean corpuscular hemoglobin (test 32.0 pg 26.8-33.4 [...] 44.7-82.4 leukocytes in Blood (test code = 34051-7) Granulocytes Immature [#/volume] 0.0 K/uL 0.0-0.03 in Blood (test code = 72506-3) lymphocyte% (test code = 16.1 % 10.0-50.0 lymphocyte%) mono % (test code = mono %) 7.4 % 3.9-13.4 eos % (test code = eos %) 1.6 % 0.0-6.4 Basophils/100 leukocytes in 0.4 % 0.2-1.2 Unspecified specimen (test code = 89875-2) Neutrophils.band form [#/volume] 5.25 K/uL 1.78-5.38 in Blood (test code = 97340-9) Lymphocytes [#/volume] in 1.1 K/uL 1.32-3.57 L Unspecified specimen by Automated count (test code = 64349-3) mono # (test code = mono #) 0.52 K/uL 0.30-0.82 eos # (test code = eos #) 0.11 K/uL 0.04-0.54 basophil # (test code = basophil 0.03 K/uL 0.01-0.08 #) NRBC% (test code = NRBC%) 0 /100 WBC 0-0.2 NRBC# (test code = NRBC#) 0 K/uL [facility]different[facility], svyyg9649-08-63 09:26:00 NeutrophilsBandLymphocyteAtypical LymphMonocyteEosinophilBasophilPlatelet EstimatePlatelet MorphologyMacrocytosisMaMagnolia Regional Health CenterPT/QDD4667-80-20 09:26:00 Test Item Value Reference Range Interpretation Comments prothrombin time (test code = 10.3 seconds 10.3-12.3 prothrombin time) INR in Blood by Coagulation 0.93 assay (test code = 76124-8) [facility]partial thromboplastin dacq6159-35-90 09:26:00 Test Item Value Reference Range Interpretation Comments INR in Blood by Coagulation 29.4 seconds 22.5-37.0 assay (test code = 11780-7) [facility] CenterComprehensive metabolic 2000 panel - Serum or Plasma [...] Serum or Plasma (test code = 6768-6) [facility] GroupCreat[facility] kinase [Enzymatic activity/volume] in Serum or Gykfgo9420-22-08 09:26:00 Test Item Value Reference Range Interpretation Comments creatine kinase (test code = creatine 119 U/L 20-200 kinase) [facility] CenterNatriuretic peptide.B prohormone N-Terminal [Mass/volume] in Serum or Noqlgn3281-98-05 09:26:00 Test Item Value Reference Range Interpretation Comments N-term pro natriuretic peptide 8212 pg/mL 0-450 H (test code = N-term pro natriuretic peptide) [facility] CenterTroponin I.cardiac [Mass/volume] in Pvlkh5339-73-24 09:26:00 Test Item Value Reference Range Interpretation Comments cardiac troponin I (test code = cardiac <0.30 0.0-0.5 troponin I) [facility] CenterCreatine kinase.MB [Mass/volume] in Serum or Plasma 2019-08-13 09:26:00 Test Item Value Reference Range Interpretation Comments mass creatinine kinase-mb (test 5.6 NG/mL 0.0-3.6 H code = mass creatinine kinase-mb) [facility] CenterBacteria identified in Abscess by Aerobe culture 2019-07-01 02:26:00Bacteria Absc Aerobe CultMatagorda Medical Groupantibiotic sensitivity testing, xjyjadl2076-61-64 02:26:00 Test Item Value Reference Range Interpretation [...] Minimum inhibitory concentration (KAUSHIK) (test code = 95183-1) Ceftriaxone [Susceptibility] by <8 Minimum inhibitory concentration (KAUSHIK) (test code = 141-2) Imipenem [Susceptibility] by <4 Minimum inhibitory concentration (KAUSHIK) (test code = 279-0) Ampicillin+Sulbactam =8/4 [Susceptibility] by Minimum inhibitory concentration (KAUSHIK) (test code = 32-3) Linezolid [Susceptibility] by 2 ug/mL Minimum inhibitory concentration (KAUSHIK) (test code = 53429-8) Meropenem [Susceptibility] by <4 Minimum inhibitory concentration (KAUSHIK) (test code = 6652-2) Daptomycin [Susceptibility] by <0.5 Minimum inhibitory concentration (KAUSHIK) (test code = 12358-7) Rifampin [Susceptibility] by <1 Minimum inhibitory concentration (KAUSHIK) (test code = 428-3) [facility] CenterThyroid Stimulating Dbaxnxr6676-76-64 22:48:11 Test Item Value Reference Range Interpretation Comments TSH (test code = TSH) 3.010 mIU/mL 0.270-4.200 PSA Fqxkdu2774-85-38 22:23:33 Test Item Value Reference Range Interpretation [...] with non-prostatic c arcinoma. Pro B Natriuretic Wsnwpsn2420-24-16 22:23:33 Test Item Value Reference Range Interpretation Comments NT-proBNP (test code = NT-proBNP) 628 pg/mL 0-449 H [facility] Metabolic Ixckn2767-33-95 22:17:15 Test Item Value Reference Range Interpretation [...] A/G 2.0 ratio N Ratio) [facility] Metabolic Cpehb0702-00-18 22:17:15 Test Item Value Reference Range Interpretation [...] the National Kidney Foundation, http://nkdep.ni h.gov Lipid Mgwsk0829-48-17 22:17:15 Test Item Value Reference Range Interpretation Comments Cholesterol Total 85 mg/dL 0-200 RISK OF HE ART (test code = DISEASEPublishe d by Cholesterol Total) [employer] Laura lyte Optimal Borderl ine [...] LDL/HDL Ratio=L DL Calc/HDL Chol Comprehensive Metabolic Bzlde5844-54-16 22:17:15 Test Item Value Reference Range Interpretation [...] ag e have not been validated by [facility] MDRD study and should be interpreted wit [...] disease than se rum creatinine alone.This calculation jonana es sex and race in to account, if the information is provided. If th e race is not provided, and t he patient is -Cathie n, multiply by 1.2 12. If sex is not provided, and t he patient is fema le, multiply by 0.7 42. Results for pat ients <18 years of ag e have not been validated by [facility] MDRD study and should be interpreted wit h caution. eGFR R esult Interpretation: eGFR > or = 60 is in the Normal RangeeGF R < 60 may mean kid radha diseaseeGFR < 1 5 may mean kidney failure Rang es recommended by the National Kidney Foundation, http://nkdep.ni h.gov XR Chest 1 View Mvshevh7042-66-86 07:58:22Patient: TYLER CLAYTON Date/Time03/13/2019 07:40 CDTReason for [...] Kimmie FSigned (Electronic Signature): 03/13/2019 7:58 amMOLECULAR QOIIPUQIAC3273-66-31 14:47:00Negative (11/12/18 8:47 AM)[facility]annCHEM BADDG1824-18-47 10:09:0058[facility]annCHEM PANEL 2018-11-12 10:09:007.9[facility]annCHEM HIKLI4731-12-23 10:09:0024[facility]annCHEM QWFXC2393-00-49 10:09:0010.2[facility]annCHEM XWRCI3145-98-51 10:09:00688Ksbuzhfa HermannCHEM XZZLQ8601-83-61 10:09:0094[facility]annCHEM QNDZR9000-35-84 10:09:0024[facility]annCHEM VWCSK9338-39-20 10:09:001.19 [facility]annCHE[facility] IGXMM4071-58-71 10:09:60280Pcvjzsmm HermannCHEM PANEL 2018-11-12 10:09:003.2[facility] WsfzwbcEUHSGIWEUD2137-45-58 10:09:00 Test Item Value Reference Range Interpretation Comments INR (test code = INR) 1.15 1 0.85-1.17 [facility]aleFptrcaqYRFZGRCXMI1350-10-33 10:09:00 Test Item Value Reference Range Interpretation Comments PT (test code = PT) 14.5 s 12.0-14.7 [facility]aleXwtxoihTVJZNSZGMX4728-25-58 10:09:008.8[facility]annHEMATOLOGY 2018-11-12 10:09:000.7[facility] ZyvdpmeZDKVQBBDOM9616-08-77 10:09:005.5[facility] AtvhaakWUDDLHCBOC0838-50-67 10:09:000.2[facility] WkkpsbqRWCIBEFYXA1833-11-95 10:09:0010.6[facility] ZbvjtsgAKUKNPHRZX1347-23-00 10:09:0079.4[facility] CPRBKXXMTK1717-50-33 10:09:000.1[facility] BxsevuzYWTZZGTGMD3125-40-81 10:09:000.6 [facility] NomdyuhXXFEJDEVFE5046-17-28 10:09:001.0[facility] HermannHEMATOLOGY 2018-11-12 10:09:006.9[facility] AyaadpfZZYACWNORH1056-59-49 10:09:0034.2[facility] IuetuvrEIPTAJOBZA7538-67-72 10:09:0014.4[facility] XvjthvnKCNNHUTSIO4226-24-93 10:09:44344Ajicmqer TzcrsktCSMXPZESQX4930-37-16 10:09:0098.4[facility] KEUNQZXUAC4277-13-21 10:09:00 Test Item Value Reference Range Interpretation Comments MCH (test code = MCH) 33.7 pg 27.0-31.0 [facility] OlrnhvqRBGTOBDOYT9424-68-48 10:09:006.9[facility]annHEMATOLOGY 2018-11-12 10:09:002.64[facility] IhjigtiIXSLIYHIBO2222-61-59 10:09:008.9[facility] BdeycphRNWXAJAZYO8467-29-16 10:09:0026.0[facility] HermannCARDIAC ENZYMES 2018-11-11 11:34:00<0.02[facility] LgytmtcFFAZKNMPXXVV6714-20-28 11:34:40663 [facility] VfqvxhnDPYWVDWCUTJH7530-74-93 11:34:0030[facility] HermannELECTROLYTES 2018-11-11 11:34:001.75[facility] LxknfbwMJANDEWJFHQM6043-67-05 11:34:004.0 [facility] FtcmsybRQXBFEYPJFWU1993-64-57 11:34:16235Kszstkds HermannELECTROLYTES 2018-11-11 11:34:24097Tilevfew MnwzivrQVRQKDCPQSHK0661-56-42 11:34:0036[facility] PsujltkWRDQZRFFOJDJ7645-68-84 11:34:0017.0[facility] JqshdtzRLRIHQPONEUK4395-60-56 11:34:008.3[facility] PugdxjbGBGRDROHZUBJ7469-82-42 11:34:0021[facility] CARDIAC OPCXZPV0047-14-51 05:53:00<0.02[facility]annCHEM XAYWZ1553-57-52 05:53:0086[facility]annCHEM DEYXQ0098-23-19 05:53:64838Aetlwjkb HermannCHEM OBCKI0126-84-96 05:53:0013[facility] HermannCHEM AIBOZ3145-77-49 05:53:0018 [facility]annCHEM WOGAL4322-92-51 05:53:000.4[facility]annCHEM PANEL 2018-11-11 05:53:000.2[facility]annCHEM OGRSC1190-07-31 05:53:003.1[facility]annCHEM PCRKO0989-22-41 05:53:006.6[facility]annCHEM RBEEP6629-44-46 05:53:000.2[facility]annCHEM TTOFX4862-70-48 05:53:00 Test Item Value Reference Range Interpretation Comments A/G Ratio (test code = A/G Ratio) 0.9 1 0.7-1.6 [facility]annCHEM DJICR4390-25-74 05:53:003.5[facility] HermannELECTROLYTES 2018-11-11 05:53:0013.0[facility] CyvczlcMVFBLASEMQNV6153-83-26 05:53:0026[facility] GzmkbztGFBLEDKGWMTS4125-37-11 05:53:91897Mayyaqub GqcpotzNDHJGSPUTGOM4806-39-21 05:53:008.0[facility] LpodkkhFBFICLPYPFNU6320-51-81 05:53:0023[facility] LXWAPKLFFPGC0048-49-82 05:53:58539Zhujktww PzkvuujGWOMNITPVDQV6555-02-86 05:53:004.0[facility] IwtlpvnPKWCMHJXHNXP8606-54-37 05:53:002.28[facility] [place] PPCMIPJGUNUT5531-17-63 05:53:0028[facility] XoumppcKPBIRKQOXBNJ4338-17-22 05:53:00 129[facility] ZlmhavlJZKJQDUNWA8660-70-98 05:53:00 Test Item Value Reference Range Interpretation Comments INR (test code = INR) 2.02 1 0.85-1.17 [facility] XnhueedUDYDUUSPME3226-33-30 05:53:00 Test Item Value Reference Range Interpretation Comments PT (test code = PT) 22.4 s 12.0-14.7 [facility] DzoayjnIXBOCCHVPR9268-93-95 05:53:00 Test Item Value Reference Range Interpretation Comments PTT (test code = PTT) 44.2 s 22.9-35.8 [facility] LxtyzvxWMWJVPLKGA0103-91-00 05:53:00 Test Item Value Reference Range Interpretation Comments MCH (test code = MCH) 33.6 pg 27.0-31.0 [facility] TwsxamtJXZDOKEVLX4166-12-66 05:53:009.3[facility] HermannHEMATOLOGY 2018-11-11 05:53:002.76[facility] WdtlyhtSHTEJRPMHA5183-45-41 05:53:0097.1[facility] AvelmacFMVHFABHZU6420-99-60 05:53:0026.8[facility] MewukxyDYVIIVNHAU4759-84-75 05:53:67149Bvjwbqoq IbyhbqaPLOAJHQXDR1969-17-06 05:53:0014.3[facility] CAVMJBQGUG8716-95-18 05:53:007.2[facility] MjxrdvzNNPHNVBKBE4158-38-64 05:53:00 34.6[facility] EpaazifUSVANKVCUO9911-02-43 05:53:007.6[facility] HermannHEMATOLOGY 2018-11-11 05:53:000.6[facility] GfjrilrNCYQHNOSXC1359-19-36 05:53:001.2[facility] VzoimvwPVFFHPUNXJ6360-20-01 05:53:006.1[facility] XkiqhqjDPEMAHXSMO5256-71-26 05:53:000.1[facility] BnvdakuUWNUPABGQV8573-92-17 05:53:008.5[facility] UFXYTMKGZG3789-03-27 05:53:008.9[facility] HingvcuYRSCPJJLSL6866-47-13 05:53:000.6 [facility] ZendmjmMYZYXURGQI7192-43-45 05:53:000.7[facility] HermannHEMATOLOGY 2018-11-11 05:53:0080.8[facility] HermannCHEM KANJC4736-28-04 09:47:001.6[facility] HermannCHEM DNNWH9312-16-27 09:47:003.1[facility] AzxfnfhZTCRPVIXRJRB6630-77-81 09:47:0010.6[facility] RwfnkffIJDDVCQRCMYM8958-29-49 09:47:0058[facility] JBVEOBFYVFBA8525-69-63 09:47:86461Geykjukc UskmqhjPGJHYHURCJZU6208-27-17 09:47:001.19[facility] NzwvppzATSOJBPQROMX9042-35-38 09:47:0022[facility] IVRAOYTHUKNP8945-60-51 09:47:0029[facility] PqsspteMIMSPHRXNCAN4083-58-75 09:47:00 100[facility] AduietoSXQPWDDMBZZH2697-79-18 09:47:003.6[facility] PAIGOZZWTTOX6872-47-87 09:47:0093[facility] JopqjdqOICYZSZOZOKD8536-84-69 09:47:00 8.2[facility] OcanjxiEOWILWNFFF0660-80-44 09:47:000.0[facility] HermannHEMATOLOGY 2018-06-03 09:47:003.9[facility] OljwapwSXMNOPTSDQ6027-82-90 09:47:0012.1[facility] MffwvdgBUTZRBURXL7300-59-60 09:47:000.5[facility] QnyevxuORAQYYYFXX0764-55-98 09:47:002.3[facility] MkypeboFWLVBMDVRO8640-44-59 09:47:009.9[facility] NRZOOUDVWY5712-44-37 09:47:0075.2[facility] FulscsoOARKCYQCBP1795-22-53 09:47:00 0.1[facility] JqcrikaMUWNSPHGGE5228-67-94 09:47:000.6[facility] HermannHEMATOLOGY 2018-06-03 09:47:000.5[facility] ZhejzhkSRUOUDOITA6580-62-44 09:47:006.7[facility] CsdnocuODEYYDUZLS7910-40-79 09:47:83982Kvcokrhw ZbniwusRXODBYXOBW2094-41-94 09:47:0014.8[facility] ZwcmahxTADETTTDMN9458-74-73 09:47:0033.3[facility] [place] TOFVWOAGKD7246-01-70 09:47:00 Test Item Value Reference Range Interpretation Comments MCH (test code = MCH) 31.8 pg 27.0-31.0 [facility] YsfrerdLXATGAYKWQ4163-40-76 09:47:0029.8[facility] HermannHEMATOLOGY 2018-06-03 09:47:0095.3[facility] HpeqymtAOREGYYMVG5290-49-57 09:47:009.9[facility] RsvzdohGLZFBBXZVL2324-15-28 09:47:005.2[facility] UyqifcvIXLRNINNKH8186-43-77 09:47:003.13[facility] HermannCHEM WMKIB3788-51-64 18:58:004.3[facility] HermannCHEM TXYQC2442-63-46 18:58:001.9[facility] HermannCHEM MPADE2790-76-43 18:58:0049 [facility]annCHEM ZPLFT2839-03-00 18:58:0010.2[facility] HermannCHEM PANEL 2018-06-02 18:58:003.2[facility] HermannCHEM XXSJF6395-44-69 18:58:0097[facility] HermannCHEM FXNEC1795-47-01 18:58:008.6[facility] HermannCHEM WWNRJ9095-85-11 18:58:0030[facility] HermannCHEM BKSCD8997-61-97 18:58:37881Jdkrmwdu HermannCHEM EBXAH2242-88-58 18:58:0025[facility] HermannCHEM CHKGD8326-59-77 18:58:001.38 [facility]annCHEM CMHTN9506-52-54 18:58:33292Lriiklro HermannNM BONE SCAN WHOLE ETCH4694-59-39 13:21:32CLINICAL INDICATION: dx: c34.11, Malignant neoplasm of upper lobe, right bronchus or lung, mets tothe ribsMODALITY: BPeSA dual head gamma cameraTECHNIQUE: 25 mCi Tc [...] lesions suggesting active osseous metastasis.PQRS 147: 3570FCHEM KVFPQ4904-40-34 10:19:002.4[facility] HermannCHEM HPEIS1663-04-57 10:19:0071[facility] HermannCHEM RPVRF2642-37-11 10:19:0012[facility] HermannCHEM CHLLE7770-36-61 10:19:0011 [facility] HermannCHEM ZQKSK5504-97-81 10:19:000.4[facility] HermannCHEM PANEL 2018-04-13 10:19:0069[facility] HermannCHEM LBPPF6920-18-91 10:19:0023[facility] HermannCHEM LYOAV0563-36-78 10:19:0087[facility] HermannCHEM ZBIBO3049-73-00 10:19:001.01[facility] HermannCHEM TNUYF4315-16-87 10:19:00560Zbwabuzk HermannCHEM GGOXD0756-86-18 10:19:24050Msiictbi HermannCHEM RUAOJ1871-42-96 10:19:003.4 [facility] HermannCHEM WIONJ9154-87-70 10:19:005.6[facility] HermannCHEM PANEL 2018-04-13 10:19:0025[facility] HermannCHEM IESIU2767-17-60 10:19:007.5[facility] HermannCHEM MQCBJ9797-83-57 10:19:002.7[facility] HermannCHEM OYJAQ2217-36-91 10:19:0011.4[facility] HermannCHEM NFYMZ3206-06-38 10:19:002.9[facility] HermannCHEM IHQLB7925-33-46 10:19:00 Test Item Value Reference Range Interpretation Comments B/C Ratio (test code = B/C Ratio) 23 1 6-25 [facility]annCHEM AIVYU5670-57-21 10:19:00 Test Item Value Reference Range Interpretation Comments A/G Ratio (test code = A/G Ratio) 0.9 1 0.7-1.6 [facility] HermannCHEM EHGOM5818-42-38 10:19:001.7[facility] HermannHEMATOLOGY 2018-04-13 10:19:003.4[facility] PmmfivaQGXNOSOBGE9117-37-34 10:19:002.38[facility] UjqndgrGRRGSHIXWV2139-88-15 10:19:008.1[facility] KmgbnbhFOVPVZLVZR2999-04-31 10:19:0023.5[facility] XjtucfwGAMMGSUKAF3879-81-38 10:19:0098.9[facility] [place] SLGFWPPZVD9299-58-03 10:19:0034.5[facility] SydnltbEMHMLJYZJB6005-17-93 10:19:00 Test Item Value Reference Range Interpretation Comments MCH (test code = MCH) 34.1 pg 27.0-31.0 [facility] VdgftzuRDEGMXYIRJ0180-23-56 10:19:0016.7[facility] HermannHEMATOLOGY 2018-04-13 10:19:49591Mnzlgeil XvxedkfEHLSLWJNIK3845-57-23 10:19:006.1[facility] QkkxnkmHQXLYIGSLM9274-85-85 10:19:002.4[facility] SacfgjuPMLEMIQZQT8926-00-78 10:19:0020.3[facility] OwlwgdwESYIDPZFHM5123-60-34 10:19:0011.0[facility] [place] PNYJYNLDSE7041-29-91 10:19:000.7[facility] BbhqguoSZKKASOLSM8275-50-88 10:19:00 66.0[facility] JqmiuuzESOQIENGJM9591-23-10 10:19:000.1[facility] HermannHEMATOLOGY 2018-04-13 10:19:002.3[facility] VlkosfwHEGCBEAISE5129-68-34 10:19:000.3[facility] CsrydymBEWCMLOOLX8785-85-46 10:19:000.4[facility] NhnhbuoTLLUURHLMI1101-50-42 10:19:000.0[facility] HermannANEMIA BMUEM9705-80-20 18:44:0017.1[facility] ANEMIA BOGKD0439-10-66 18:44:72149Wytrfbxg HermannCHEM URMIE4776-94-03 18:44:00 101.9[facility] HermannCHEM JWUNB3136-36-59 10:57:001.7[facility] HermannCHEM PANEL 2018-04-12 10:57:003.2[facility] VeslqcmHIQRVKMZOGIP0909-04-08 10:57:0012.0 [facility] LsnlupyULORSAGMNKMP6174-27-60 10:57:00 Test Item Value Reference Range Interpretation Comments B/C Ratio (test code = B/C Ratio) 22 1 6-25 [facility] YxfwkpeNYOQQSQSXIYD2439-54-26 10:57:003.1[facility] HermannELECTROLYTES 2018-04-12 10:57:00 Test Item Value Reference Range Interpretation Comments A/G Ratio (test code = A/G Ratio) 1.0 1 0.7-1.6 [facility] UxoocuqTMDBQXVHNKWF8996-45-30 10:57:000.5[facility] HermannELECTROLYTES 2018-04-12 10:57:0084[facility] TeilygaTFWVSLHABQWI4134-20-89 10:57:003.1[facility] GbfncmgMWQQNCTWZLKB0305-77-29 10:57:0057[facility] TnvthydYETBRCQPIZIB0713-52-65 10:57:006.2[facility] IbyeozmWZTBJUFJZMEM8346-45-06 10:57:007.8[facility] [place] DMLWMVRUXPVR6209-60-49 10:57:0014[facility] VnlrgenCWYJTRFLBCGT2569-01-73 10:57:00 12[facility] RhksdfcVAVLAZIHUGWK4985-32-72 10:57:65177Oesmlhtp HermannELECTROLYTES 2018-04-12 10:57:0026[facility] RmktefhAJYNCOQAVFCL9259-45-69 10:57:89704Zavgpsyn DewgafnWHFNCTTHUIGT0104-05-43 10:57:004.0[facility] JqakkzsTWCZAWBWPREQ1169-00-46 10:57:0027[facility] HcxzqtiHRPVEVNAUQKT2600-00-62 10:57:80052Crxmpmwu [facility] JDZQAAQBJFRJ5663-75-35 10:57:001.21[facility] SznsqclVMIVLVORMQ0432-11-58 10:57:00 0.1[facility] IdwsmabLDJNQLLIMR5229-49-13 10:57:000.2[facility] HermannHEMATOLOGY 2018-04-12 10:57:000.0[facility] VxknmbcTKGAUXBRTV0375-63-17 10:57:003.8[facility] XwiqydkIMMCRINGVU0594-41-20 10:57:001.2[facility] VzaqghgZPLXVJPGWO7053-89-12 10:57:000.2[facility] PbscywmJBSOKWSCEP3988-01-36 10:57:000.5[facility] [place] VIARPBWHOB7597-60-95 10:57:003.7[facility] UvxlvnvTZAOKRLSJZ9438-93-54 10:57:00 11.7[facility] PlxhytrWSRRBBSSTO8893-13-97 10:57:0083.1[facility] HermannHEMATOLOGY 2018-04-12 10:57:00 Test Item Value Reference Range Interpretation Comments PTT (test code = PTT) 31.6 s 22.9-35.8 [facility] XgoqsluKVKRQYFEEN8348-38-53 10:57:00 Test Item Value Reference Range Interpretation Comments PT (test code = PT) 14.0 s 12.0-14.7 [facility]aleBwrceibVLYBASLARB2726-32-30 10:57:00 Test Item Value Reference Range Interpretation Comments INR (test code = INR) 1.08 1 0.85-1.17 [facility] IyotapqLERKQWHHHK8957-38-03 10:57:004.4[facility] HermannHEMATOLOGY 2018-04-12 10:57:002.62[facility] QnpjmqgEWCIFBOICB3282-24-35 10:57:0099.1[facility] FjnacnkMBSCJZMYTW5659-69-08 10:57:0026.0[facility] JgbkcngXRJTNIEPAV8090-75-50 10:57:009.0[facility] JpgcrzaXELTFXXKIR3600-07-11 10:57:00 Test Item Value Reference Range Interpretation Comments MCH (test code = MCH) 34.5 pg 27.0-31.0 [facility] DwqzoreDHMLAJHAHL2792-11-01 10:57:0034.8[facility] HermannHEMATOLOGY 2018-04-12 10:57:04390Oyeoqklh XkzgppxHSNYWXMEUD8903-46-54 10:57:0017.1[facility] IbdeotbUUCWNJSGIQ2179-98-12 10:57:006.5[facility] HermannCARDIAC BNNTVTG1680-78-98 05:51:00<0.02[facility] HermannCARDIAC UJRDXDY1883-46-92 05:51:0055[facility] HermannCARDIAC NDYLOMS4343-18-04 01:03:00<0.02[facility] HermannCARDIAC ENZYMES 2018-04-12 01:03:0065[facility] HermannURINE AND ILSTB5376-32-08 20:19:0012 [facility]annUR[facility] AND WNXGQ9145-90-74 20:19:00Negative *NA*(04/11/18 3:19 PM) [facility]UR[facility] AND CRMDR3651-80-73 20:19:00Negative (04/11/18 3:19 PM) [facility] AND RVNTN7172-52-37 20:19:00Negative (04/11/18 3:19 PM) [facility] AND WXCEV0064-90-65 20:19:00Negative (04/11/18 3:19 PM) [facility]UR[facility] CRLSW4994-20-82 20:19:001[facility] TNLQA1158-24-69 20:19:00Light Yellow *NA*(04/11/18 3:19 PM)[facility] [id number] 20:19:00Clear (04/11/18 3:19 PM)[facility] [id number] 20:19:00 Test Item Value Reference Range Interpretation Comments UA pH (test code = UA pH) 5.0 1 5.0-8.0 [facility] [id number] 20:19:00 Test Item Value Reference Range Interpretation Comments UA Spec Grav (test code = UA Spec 1.009 1 Grav) [facility] DLGWXVY4226-18-66 20:02:000.6[facility] CTEZKLY8356-74-51 20:02:0070[facility] DCSKKCJ8828-78-23 20:02:00 <0.02[facility] ZLCFFKY4999-97-09 20:02:00 Test Item Value Reference Range Interpretation Comments CK MB Index (test 0.9 1 See_Comment [Automate d message] The code = CK MB Index) system w [facility] generated this result transmit sarah reference range : <=2.5. The reference range was not used to interpr et this result as marcela l/abnormal. [facility] [id number] 20:02:0042[facility]CHE[facility] PANEL 2018-04-11 20:02:00 Test Item Value Reference Range Interpretation Comments A/G Ratio (test code = A/G Ratio) 0.9 1 0.7-1.6 [facility] [id number] 20:02:0098[facility] PAN[facility] 2018-04-11 20:02:0012.9[facility] [id number] 20:02:003.4[facility] RWWHE3105-14-65 20:02:00 Test Item Value Reference Range Interpretation Comments B/C Ratio (test code = B/C Ratio) 20 05-12 [facility] [id number] 20:02:0031[facility] PANEL 2018-04-11 20:02:001.58[facility] OOIYE1019-66-52 20:02:003.9[facility] RPROU1156-15-13 20:02:0097[facility]CHE[facility] GCLUP3764-68-31 20:02:12413Yattzfnz HermannCHEM GETWX2213-99-04 20:02:0015[facility]CHE[facility] MIFKN7030-05-73 20:02:0013[facility] POURC7178-05-47 20:02:003.2 [facility] [id number] 20:02:000.7[facility]CHE[facility] PANEL 2018-04-11 20:02:0082[facility]CHE[facility] JZJPR0865-20-00 20:02:0027[facility] KSNFI5160-01-89 20:02:006.6[facility]CHE[facility] [id number] 20:02:008.1[facility] BgoutcoRRVLBUCVVPBON7025-67-28 20:02:0011.7[facility] KJNYATCBVD7285-48-36 20:02:00 Test Item Value Reference Range Interpretation Comments PT (test code = PT) 13.5 s 12.0-14.7 [facility] KxaverdWGHKGLIYQB9759-35-29 20:02:00 Test Item Value Reference Range Interpretation Comments INR (test code = INR) 1.03 1 0.85-1.17 [facility] XkomjlwFCZJUHFLUT6563-16-06 20:02:007.1[facility]OLOGY 2018-04-11 20:02:00643Vdpuslxf WnfglkpNFQSQGGELQ7549-15-01 20:02:0017.8[facility] WdilszlZVBJGFQUJY7472-22-03 20:02:0025.4[facility] ShzjxnlNVBJOFMIAQ1201-46-91 20:02:0034.4[facility] XynveumDBGJXXMVGC7961-49-65 20:02:00 Test Item Value Reference Range Interpretation Comments MCH (test code = MCH) 34.3 pg 27.0-31.0 [facility] CvmtefrUJOPSKSWOI7479-29-49 20:02:0099.9[facility]OLOGY 2018-04-11 20:02:008.7[facility] IsobhagIRWDYQKKYX0576-13-79 20:02:002.55[facility] YhmsctlUBIIHEUMVG9418-85-46 20:02:006.6[facility] XbnqzwfSXTKGSEMZD3897-16-29 20:02:00 Test Item Value Reference Range Interpretation Comments PTT (test code = PTT) 33.5 s 22.9-35.8 [facility] UpbgdemJSZOAEFJSM5566-41-96 20:02:000.0[facility]Y 2018-04-11 20:02:000.7[facility] TrlhwbcGRBUHFPVDM1775-49-50 20:02:000.4[facility] XzcypniKUZQKVGFYW6210-94-16 20:02:000.7[facility] ZdsmcqqJELQEDVDFA0387-27-39 20:02:004.8[facility] QljhvmlZMTDCRPIYO3462-46-84 20:02:000.2[facility] [place] VPMNCYUUPE4572-82-83 20:02:0010.1[facility] IxkteraCOTRABINOA5928-68-93 20:02:00 10.8[facility] FukqftlSSVYMMEDRF7881-90-88 20:02:0072.4[facility]annHEMATOLOGY 2018-04-11 20:02:006.5[facility] IhpjjdoGQAQEILMWA7395-68-40 11:42:00 Test Item Value Reference Range Interpretation Comments PTT (test code = PTT) 47.0 s 22.9-35.8 [facility] XICOR6495-70-68 11:15:000.9[facility]annCHEM PANEL 2016-09-05 11:15:003.4[facility]annCHE[facility] UJYDJ9240-51-39 11:15:0025[facility]annCHE[facility] LPPIZ3955-65-51 11:15:0012.9[facility]annCHE[facility] ZWGKX7102-47-44 11:15:0080[facility]annCHEM UZWOE6645-07-99 11:15:0078[facility]annCHEM LDQIN5872-89-82 11:15:0014[facility]annCHEM AEYTW5328-13-10 11:15:000.6 [facility]CHE[facility] WSXRG3148-02-11 11:15:0012[facility]annCHEM PANEL 2016-09-05 11:15:003.1[facility]annCHEM WYYVO5283-40-73 11:15:006.5[facility]annCHEM UOLBS8754-68-96 11:15:0027[facility]annCHEM TAWTH1646-58-97 11:15:61399Yhjqtkld HermannCHEM FCEGS1332-26-59 11:15:008.7[facility]annCHEM JNJMP3079-93-78 11:15:003.9[facility]annCHE[facility] IPEKC1269-77-21 11:15:04847 [facility]CHE[facility] PZSAM2592-14-68 11:15:0023[facility]annCHEM PANEL 2016-09-05 11:15:000.93[facility]annCHEM WNOHT6468-04-48 11:15:89898Bdyxlpbq HermannCHEM DQTSO6400-48-06 11:15:003.2[facility]annCHEM FYRLW2495-34-04 11:15:001.6[facility] PofhkfsYWHGIAUSIE7030-11-84 11:15:000.0[facility] [place] DMGTNLXISN4813-13-23 11:15:007.8[facility] EzzfjjdELZXWLBZHS8342-51-64 11:15:00 32.6[facility] BbvzupeMMXGXHFLLM2667-69-98 11:15:000.2[facility] HermannHEMATOLOGY 2016-09-05 11:15:000.5[facility] JsvlgfmOSABHMXXXO0485-42-72 11:15:002.1[facility] DvydxlmAUSDHKJCFC9117-10-72 11:15:0056.2[facility] TjxirjyECIFKHOIMD4086-50-23 11:15:003.5[facility] NdfihmrTZPHCEHIYB0811-18-51 11:15:000.6[facility] PQHNYBONJJ9835-33-68 11:15:002.8[facility] JtjsjazQSWUAOGXVU5007-31-79 11:15:00 87.6[facility] GsfombaUYDOCOPJWK1918-19-46 11:15:0035.6[facility] HermannHEMATOLOGY 2016-09-05 11:15:007.4[facility] MeyhrwrDTUNQHXEVV8732-04-35 11:15:004.06[facility] BqwyckgWDFDQABQEO6738-43-51 11:15:0011.6[facility] XhcwsezLWZPAXULIG5759-97-11 11:15:006.3[facility] CgotehwHPDADYWMWI0636-20-80 11:15:0016.6[facility] FUIECTCEZM6030-36-84 11:15:65001Hphzfrll KiyhxbyYXGFVOYLXM2269-51-55 11:15:00 32.6[facility] ZfgcflbQOPYIBXRLN1427-76-46 11:15:00 Test Item Value Reference Range Interpretation Comments MCH (test code = MCH) 28.5 pg 27.0-31.0 [facility] HermannPARATHYROID ZROQMZI7816-32-91 11:15:001.19[facility] [place] PARATHYROID EGKJJGR8324-15-01 11:15:001.14[facility] IfgdahdGLDDLOWWBJ7661-67-19 05:31:00 Test Item Value Reference Range Interpretation Comments PTT (test code = PTT) 48.6 s 22.9-35.8 [facility] IKTID1566-72-14 01:38:00Negative (09/04/16 8:38 PM) [facility] YUWFI5426-24-24 01:38:00Negative (09/04/16 8:38 PM) [facility] SEQBI6612-76-05 01:38:00Negative (09/04/16 8:38 PM) [facility] FHEHN1482-73-27 01:38:001[facility] QYZKR8055-96-49 01:38:001[facility] NQUSA6443-27-34 01:38:00 Negative *NA*(09/04/16 8:38 PM)[facility] CMNNB0276-53-29 01:38:00Clear (09/04/16 8:38 PM)[facility] IVFXD2098-39-07 01:38:001.009[facility] NVIGB3707-03-54 01:38:006.0[facility] HFEXU2532-68-83 01:38:00Light Yellow *NA*(09/04/16 8:38 PM) [facility]annBACTERIAL - JURDKKOU4625-84-67 00:56:00Negative (09/04/16 7:56 PM)[facility] YnracedZFWULHDYSZ8354-61-27 20:31:008.1[facility]annHEMATOLOGY 2016-09-04 20:31:001.8[facility] XmybpxhNXKGGCMCAU3348-02-20 20:31:004.6[facility] MullqrlWMPVYMMEMP7316-06-63 20:31:000.5[facility] LgyiiivYEADRZPHFF9827-60-43 20:31:0026.9[facility] BkregigUGXWBWCRUG1170-50-76 20:31:000.6[facility] [place] QTVIOKAMML9863-81-14 20:31:002.0[facility] JqbosfsVQRIOBCNGJ7302-15-69 20:31:000.1 [facility] VtvnuxmVERWEKPFRH5371-89-47 20:31:000.0[facility] HermannHEMATOLOGY 2016-09-04 20:31:0062.7[facility] BwocqdeCEPJLLJLGN6831-71-81 20:31:00 Test Item Value Reference Range Interpretation Comments PT (test code = PT) 13.7 s 12.0-14.7 [facility] YdaoxyrBEJVPSMXGI4611-08-47 20:31:001.03[facility]annHEMATOLOGY 2016-09-04 20:31:00 Test Item Value Reference Range Interpretation Comments PTT (test code = PTT) 33.9 s 22.9-35.8 [facility] AjnwiqyKOXYFOADUG8617-78-87 20:31:0033.0[facility]annHEMATOLOGY 2016-09-04 20:31:0012.1[facility] ZxclmfxPLRDJTXYFO4651-65-35 20:31:78128Qznlfyqg NkranxwETOTVZGRIL3717-30-00 20:31:0016.6[facility] BciqwpkIGBJMNFLQO9731-29-57 20:31:004.21[facility] WrucoluNAJHWAXESB2934-15-44 20:31:007.4[facility] BUKWCENDWO1592-88-22 20:31:0086.7[facility] WuoczykLJIREHBBDZ3145-39-44 20:31:00 Test Item Value Reference Range Interpretation Comments MCH (test code = MCH) 28.6 pg 27.0-31.0 [facility] QaeuqawJZDXYZXPSL1983-00-18 20:31:0036.5[facility]annHEMATOLOGY 2016-09-04 20:31:007.8[facility]annCHEM BXGZO1413-88-70 09:58:0076[facility]annCHEM OHGIX7182-28-66 09:58:0027[facility]annCHEM JEAGW4526-08-93 09:58:22910Iylyexgc HermannCHEM PDKTL5042-26-78 09:58:003.4[facility]annCHEM NJPFV1397-94-91 09:58:008.7[facility]annCHEM BVEZB1619-17-51 09:58:0013.4 [facility]annCHEM OMYFQ7646-30-47 09:58:15295Vwtvqoxt HermannCHEM PANEL 2016-09-04 09:58:000.96[facility]annCHEM RROCS3897-68-45 09:58:0029[facility]annCHEM NGIER4008-87-34 09:58:0096[facility] SxcewztGRJEZEKKSE9477-70-94 11:33:0020.5[facility] NnyrnhzDIPZEWSGDY2268-38-72 11:33:0070.3[facility] [place] FCUTDZCGHN4503-45-55 11:33:006.2[facility] BhulvkdYNVQBYUGCI4958-71-56 11:33:000.5 [facility] KztfbgiNTBYNXTNCK7152-40-38 11:33:000.0[facility] HermannHEMATOLOGY 2016-09-03 11:33:001.8[facility] GuknveaUMRWFIALXL2664-82-75 11:33:000.2[facility] BdmdpjpKLXMRMPEUF8446-37-30 11:33:000.6[facility] GcgzgmdXJGTVDOJTP9246-22-49 11:33:70140Myazrhxm HttqxgiQSRKGLXHRN4118-03-52 11:33:008.0[facility] JRMCRFSIOI4975-02-92 11:33:0033.0[facility] ZziotusRAICDKMQSD4725-64-55 11:33:00 16.2[facility] HqehvsePKXYXDTAES2347-44-56 11:33:00 Test Item Value Reference Range Interpretation Comments MCH (test code = MCH) 28.6 pg 27.0-31.0 [facility] SfpdoblUDQMXBCFGC3771-78-82 11:33:0086.7[facility] HermannHEMATOLOGY 2016-09-03 11:33:0037.0[facility] JqyqzycRWJYNJKKMT1590-17-92 11:33:0012.2[facility] YdofjsmGEJRKRQITI9622-54-11 11:33:004.26[facility] LqbgsouRAAUGUVRVE7831-08-12 11:33:008.8[facility] PgufivvMKOOXGHKCAGK0986-99-51 11:33:0011.7[facility] [place] ZFVUUCJOVDMV3759-29-83 11:33:0071[facility] EnoldknYDTSGVXBDSRB2298-87-81 11:33:00 29[facility] UvwaixtTWGCNTOINCEQ7858-25-26 11:33:0096[facility] HermannELECTROLYTES 2016-09-03 11:33:001.02[facility] RpigidxKDDLIFHHYUXN3439-19-51 11:33:18913 [facility] EjllmckWGXUAQQSEBDT7824-39-87 11:33:003.7[facility] HermannELECTROLYTES 2016-09-03 11:33:25421Jnrkjvev IwkldejWBRMXVHTXXOY4474-14-28 11:33:009.0[facility] HlizmtuVTXGEZXCHSIR7384-23-84 11:33:0029[facility] YwlieycPOKRDKTDPA1450-73-74 11:33:002.1[facility] QswdqbgXGOMKBYWUT0873-02-56 11:33:006.6[facility] [place] CARDIAC WDZBJUB2271-51-05 01:35:0090[facility] HermannCARDIAC OFOHDNP9071-68-56 01:35:000.02[facility]annCARDIAC NSRKMNI0140-62-18 01:35:001.8[facility] HermannCARDIAC VYJOXBH6339-12-05 01:35:002.0[facility] HermannCARDIAC ENZYMES 2016-09-01 21:50:97867Olndtxdt HermannCARDIAC SVQURKK5804-99-68 21:50:00<0.02 [facility]annCARDIAC PSGWCCK0856-77-19 21:50:002.4[facility] HermannCARDIAC YCXILZZ3721-08-67 21:50:002.4[facility] HermannCARDIAC NEMECZM0486-28-66 17:42:00 159[facility]annCARDIAC IYBMHZW3447-03-69 17:42:30620Xqamoqlt HermannCARDIAC ATNCQGJ1942-08-00 17:42:00<0.02[facility]annCARDIAC BPRWSGS2106-70-00 17:42:001.8[facility] HermannCARDIAC PYSEPDP8301-64-53 17:42:001.1[facility] [place] CHEM CBOCV6052-61-33 17:42:0019[facility]annCHEM FDIUW6118-18-77 17:42:007.8 [facility]annCHEM AHHJO0808-45-76 17:42:0037[facility]annCHEM PANEL 2016-09-01 17:42:003.7[facility]annCHEM QXRPG0584-29-86 17:42:0092[facility]annCHEM CHLHL3320-43-66 17:42:0022[facility]annCHEM GALSU5374-84-83 17:42:000.6[facility]annCHEM XFDXQ9649-82-95 17:42:004.1[facility]annCHEM PYTEN0860-39-25 17:42:000.9[facility] JabupogBDLZNUIHPQ5099-76-98 17:42:000.95 [facility] SmniimaYBIOIRFPFK8735-65-12 17:42:00 Test Item Value Reference Range Interpretation Comments PT (test code = PT) 12.9 s 12.0-14.7 [facility] XqpppvnBMFMRQLKIW6473-50-32 17:42:001+ (09/01/16 12:42 PM)[facility] UycbchrYQTOKZUBPM7266-15-55 17:42:00 Test Item Value Reference Range Interpretation Comments Tot Cell Ct (test code = Tot Cell Ct) 100 1 [facility] IyygadzYOKEHGUFTE3894-34-04 17:42:001+ *ABN*(09/01/16 12:42 PM)[facility] OcbbicjGBTUOURWHE2992-36-91 17:42:00Normal (09/01/16 12:42 PM)[facility] [place] ALUVZNOMNE3850-88-00 17:42:006.0[facility] UrhaoxnNNIDISKPVR0880-15-01 17:42:00 Normal (09/01/16 12:42 PM)[facility]annCHEM PEILL8077-24-87 11:30:001.7 [facility]annCHEM OMTGW8562-57-61 11:30:0077[facility]annCHEM PANEL 2015-10-11 11:30:0011.2[facility]annCHEM VZHBS2666-15-90 11:30:88362Ombdnssf HermannCHEM MZMSJ8623-39-03 11:30:004.2[facility]annCHEM TAWKV1520-91-30 11:30:008.3[facility]annCHEM XFIFT8707-25-58 11:30:0025[facility]annCHEM SKTIH9142-93-83 11:30:22700Giysjjct HermannCHEM CLZFR4679-37-08 11:30:37585 [facility]annCHE[facility] BBLWR6977-60-25 11:30:000.96[facility]annCHEM PANEL 2015-10-11 11:30:0041[facility] CoyzpkhZGDWKYKRCCFA6444-48-09 11:29:0011.8[facility] CoqocbwZFCHFOFOVBHE6011-59-44 11:29:0079[facility] VxlyuczGBZHSPLOFIUB8295-22-91 11:29:0025[facility] MlyqbzyUFRCHLPPVIFJ4124-24-85 11:29:008.5[facility] [place] GPWQNLLXJOUA2143-77-98 11:29:61713Uamknvgr MptegyzDRXTBNDCBIGO2543-38-03 11:29:0044[facility] CvwydpeSVMFCIUJEGDF4011-80-70 11:29:22674Dasuhztz [place] XAAZIOAGHJRA4990-68-28 11:29:000.94[facility] VbkdzymCJIPXFPEGMYR0106-27-86 11:29:003.8[facility] KvzwqfxIMYYYOUQMCEJ6901-94-25 11:29:66794Qczsebzx [place] CHEM NPCXT9933-11-01 11:43:001.5[facility] HermannCHEM HEOUW8985-52-17 11:43:0075 [facility]annCHEM UIRCS0910-51-54 11:43:0035[facility]annCHEM PANEL 2015-10-08 11:43:000.98[facility] UhwibauDODWLLRSWB2970-99-19 11:43:0027.6[facility] UzgqzlwDVEDVRCCUM0942-18-38 11:43:008.4[facility] VywbuwdSZFHMMGOAG5359-32-77 11:43:000.2[facility] TrgajaaXJCSJFZZTX9902-87-64 11:43:001.4[facility] [place] XVYUDIEMRF8009-24-39 11:43:002.2[facility] BpxobrpOTWBTPRCGU8073-38-78 11:43:000.1 [facility] TapgrrjGRXJSSARQY0102-81-48 11:43:005.1[facility] HermannHEMATOLOGY 2015-10-08 11:43:000.7[facility] IajxzedQHQVODHUHO3593-87-71 11:43:000.0[facility] DzuckowTUYQAPONCW3383-73-26 11:43:0062.4[facility] LefsfopWCOQRUJPZK4495-02-28 11:43:00Normal (10/08/15 5:43 AM)[facility] RmknyhjTLSUCVWUZJ9697-05-22 11:43:00 7.6[facility] DkvmdxjEFQSGPOFXN7884-38-86 11:43:10331Uallazdu HermannHEMATOLOGY 2015-10-08 11:43:009.2[facility] QqkgbuxDNURXPGZWZ1585-84-25 11:43:002.98[facility] XuiskacITITLNHSFO4848-36-42 11:43:008.1[facility] VjdjtxfXAJJSAXUSF1556-27-69 11:43:0014.5[facility] RsjlzrpLIFGLFVXDQ3342-26-61 11:43:0032.7[facility] [place] LWHSGSKTVO9986-77-27 11:43:00 Test Item Value Reference Range Interpretation Comments MCH (test code = MCH) 31.0 pg 27.0-31.0 [facility] IdnpbedUKEDWBBWNX3733-18-23 11:43:0094.6[facility] HermannHEMATOLOGY 2015-10-08 11:43:0028.2[facility] HermannCHEM GWFBZ5558-45-54 11:23:003.5[facility]annCHEM IOMVV6887-83-36 11:23:001.3[facility] VvvenzlWAJWCPWOFKQM6726-40-55 11:23:0011.8[facility] VvciufsHTZOMRUXBZXH1477-48-98 11:23:18014Itvfzifc [place] SHYYHLQSVHEP1821-74-60 11:23:008.2[facility] NhfniqgVNVCHLMMRHNO2289-46-19 11:23:0029[facility] QlkeyngDCCPCXVLFDAA7391-52-55 11:23:0023[facility] KPTJFWLDQHTM9597-47-30 11:23:90321Gzqapuhh AxtnhyoVPBPOGPNGBYC0986-20-10 11:23:30682Ylzibmou ZrwncdlFNUBXDYPBAZU6839-46-38 11:23:003.8[facility] [place] LQYHRHEUFNXA6321-79-28 11:23:0015[facility] OgalfptEGUEPVVJAUPH6594-33-38 11:23:00 80[facility] JdzhnbgRBZCEPIXHXMT9052-10-97 11:23:000.8[facility] HermannELECTROLYTES 2015-10-07 11:23:006.2[facility] JbmdszbWTVITOPIBPCE8454-66-51 11:23:000.8[facility] DwhikzqBFDBGVMGHEQA5315-52-56 11:23:0013[facility] NwkjrsdZIFNBXKDQYUI4061-44-32 11:23:003.4[facility] JnzmvytVEGBSRVNXQKJ8823-05-53 11:23:002.8[facility] MKDMANVVFP5662-15-94 11:23:0011.7[facility] BmjvgtgTSONYVURXW8391-98-68 11:23:00 6.1[facility] MiqqqjmSVKBSFDPNP3425-82-34 11:23:000.0[facility] HermannHEMATOLOGY 2015-10-07 11:23:000.3[facility] PtxqntuQDNQABCNIR1610-28-54 11:23:009.2[facility] NysygflNCNSLZBWBI9184-42-57 11:23:001.3[facility] FxmoddpQQEXMOPBDI5253-39-01 11:23:000.7[facility] ZrqaihnNORXAJOQTI4552-50-40 11:23:000.0[facility] [place] RPZPVMWFSJ7328-29-61 11:23:000.0[facility] UbebgleTCGGLZQYFD3281-57-27 11:23:00 81.9[facility] UqzqqebNCUHQVQEWX3865-17-17 11:23:0014.0[facility]annHEMATOLOGY 2015-10-07 11:23:28053Goizrdwg WkhlnfjQYLQYQSWUF3104-85-64 11:23:007.8[facility] KojozjmWQWBKBBGQE2340-02-79 11:23:00 Test Item Value Reference Range Interpretation Comments MCH (test code = MCH) 30.9 pg 27.0-31.0 [facility] LgqrpuuZWVATLLBVW2877-51-44 11:23:0032.2[facility]annHEMATOLOGY 2015-10-07 11:23:0011.2[facility] DdnvtbyIASHONZALD2248-96-00 11:23:0011.2[facility] UcazszpDZXAFNDPWN2297-71-10 11:23:003.62[facility] LljxoybDMJGVNIEFN8929-46-46 11:23:0096.0[facility] CaqbnkqXSZGHUCBPA3666-58-34 11:23:0034.8[facility] [place] MZUMHKNSHG9324-11-49 11:06:0032.1[facility] HafwuahMTFYEKKJAD1493-44-94 11:06:00 14.4[facility] SmgtvykKNMZRIJFAH0080-39-81 11:06:03491Hkomuxmz HermannHEMATOLOGY 2015-10-06 11:06:007.7[facility] HfcggkwRUVOCKZHCW4049-00-15 11:06:0010.2[facility] UobegoqLBTLYTIPRV7853-74-75 11:06:0095.5[facility] QtoctqbAXGVEYDYXE3608-34-65 11:06:003.33[facility] CxeqsvgIPUKUEUCCD5157-73-93 11:06:0031.8[facility] TOXDEOYBGS9517-15-89 11:06:00 Test Item Value Reference Range Interpretation Comments MCH (test code = MCH) 30.7 pg 27.0-31.0 [facility] DczglrdWMZJPVKULE3956-87-54 11:06:008.1[facility]annHEMATOLOGY 2015-10-06 11:06:001.9[facility] JvrfwxxGYLPJKOFBM9422-67-74 11:06:000.6[facility] QtgfjmhLIMKIZNOUC8576-03-54 11:06:000.1[facility] SfnykcqDCPMJYSARP5128-30-72 11:06:000.0[facility] OiutxgtCLMLHGQWQI1058-23-29 11:06:000.3[facility] [place] QMQXBTUQIR7778-89-28 11:06:005.6[facility] EangriiCUAUBZQIDS7621-42-61 11:06:00 23.1[facility] TofdxvzGFTLWOXIPW2375-65-11 11:06:0069.0[facility]annHEMATOLOGY 2015-10-06 11:06:006.9[facility] EhqttoxGFITMRVONY0562-20-57 11:06:000.7[facility]UR[facility] AND UZLEW3604-52-17 03:01:00Negative (10/05/15 9:01 PM)[facility] PPPDT0055-49-69 03:01:000.2[facility] STOOL 2015-10-06 03:01:00Negative (10/05/15 9:01 PM)[facility] STOOL 2015-10-06 03:01:00Negative (10/05/15 9:01 PM)[facility] STOOL 2015-10-06 03:01:00Negative *NA*(10/05/15 9:01 PM)[facility] YILCT6065-42-54 03:01:00 Test Item Value Reference Range Interpretation Comments UA Spec Grav (test code = UA Spec 1.010 1 Grav) [facility] QHKKI7749-67-27 03:01:00 Test Item Value Reference Range Interpretation Comments UA pH (test code = UA pH) 7.5 1 5.0-8.0 [facility] MQGHM7360-49-10 03:01:00Clear (10/05/15 9:01 PM) [facility] LYXHL9611-78-12 03:01:00Yellow *NA*(10/05/15 9:01 PM) [facility]annCARDIAC HRMASCM9123-24-79 00:18:001.4[facility]annCARDIAC CFSFXWB2683-69-38 00:18:000.6[facility]annCARDIAC GUFMCFK8256-42-61 00:18:00 <0.02[facility]annCARDIAC HHMBNVU8434-07-91 00:18:0043[facility]annCHEM CWHVO5272-28-56 00:18:0068[facility]annCHEM OVNQS4008-44-16 00:18:0018 [facility]annCHEM KULDW3715-97-39 00:18:000.9[facility] HermannCHEM PANEL 2015-10-06 00:18:003.6[facility] HermannCHEM CLESK5893-27-27 00:18:007.0[facility]annCHEM MUJVD2075-52-08 00:18:003.4[facility] HermannCHEM LWHSB0326-92-59 00:18:0014[facility]annCHEM SJHWB1303-86-72 00:18:000.5[facility] HermannCHEM PDQEI9132-32-92 00:18:0020[facility]annCHEM IBFTS3842-48-54 00:18:0099 [facility] BzguwbkJWZKWJCSDM5427-58-72 00:18:001.06[facility]annHEMATOLOGY 2015-10-06 00:18:00 Test Item Value Reference Range Interpretation Comments PT (test code = PT) 14.1 s 12.0-14.7 [facility] VvpowqwPKAKOBIXLK2355-59-90 00:18:00 Test Item Value Reference Range Interpretation Comments PTT (test code = PTT) 27.8 s 22.9-35.8 [facility]annCHEM ZNZDU3360-06-64 10:40:0065[facility]annCHEM PANEL 2015-06-17 10:40:56853Vzabvnvo HermannCHEM OUZXP4664-05-29 10:40:001.1[facility] HermannCHEM KGDXM7523-23-19 10:40:66105Ulekufrm HermannCHEM FOAOS6109-45-08 10:40:003.6[facility] HermannCHEM WAEGU8995-76-14 10:40:0023[facility] HermannCHEM PHLVN7800-45-48 10:40:0012[facility] HermannCHEM SDNFP6639-84-79 10:40:95004 [facility]annCHEM NLGHJ4988-09-48 10:40:008.0[facility] HermannCHEM PANEL 2015-06-17 10:40:0012.6[facility] DyvwuhnIIHMUYDYRQ3063-18-20 10:40:006.2[facility] SawrhxnMFAAVLJFCX1382-67-21 10:40:004.8[facility] HknraarQQTNEPOSUG1949-97-50 10:40:000.3[facility] YeshmdbZUYHDXDYVF5896-11-69 10:40:002.0[facility] AXUWVCCIAX2205-46-34 10:40:000.4[facility] HlztkrzVRMFSVEVLP0095-33-52 10:40:000.6 [facility] UwvalscPGRRXLKKHC4714-11-06 10:40:000.0[facility] HermannHEMATOLOGY 2015-06-17 10:40:0021.3[facility] DykzwpmAFHFERQFOC0104-68-21 10:40:006.7[facility] HwdluzkLPPIKZLCBR8918-11-72 10:40:0066.9[facility] QarevwySQHTAIJYDW3532-81-15 10:40:008.0[facility] ZashvdhQFNJJHQQLE3939-46-71 10:40:0018.3[facility] [place] RBYYOVIKRW7666-41-87 10:40:99355Pjledmsb UxpkbliAXCSGUJLMY5574-36-84 10:40:00 34.0[facility] YlmkppzJFBORCGYGG9732-02-95 10:40:003.18[facility] HermannHEMATOLOGY 2015-06-17 10:40:009.3[facility] VshrazeLGWWPTCPLB8038-73-42 10:40:00 Test Item Value Reference Range Interpretation Comments MCH (test code = MCH) 30.6 pg 27.0-31.0 [facility] BbhyifeNDXHFIJKPG2497-23-33 10:40:0028.6[facility] HermannHEMATOLOGY 2015-06-17 10:40:009.7[facility] FypxzbuLEVTTICQIT2385-88-25 10:40:0090.0[facility] HermannCHEM YUJRA3846-49-41 11:29:0025[facility] HermannCHEM FRTZJ1282-61-71 11:29:70430Ucxjbnre HermannCHEM GQOVQ1060-32-95 11:29:0059[facility] HermannCHEM LCSWO0212-14-31 11:29:0012.1[facility] QfbcsyoIFHIISRLKA0467-70-62 11:29:000.0 [facility] OhlpjibZPJILRDQDG6656-92-00 11:29:000.7[facility] HermannHEMATOLOGY 2015-06-16 11:29:000.8[facility] RsiuheeXBCEOOPKNO2129-25-76 11:29:000.3[facility] TjzeltdEZKCAPCJNX9647-65-16 11:29:009.1[facility] MifrqtoIVSPVGLRON4197-59-95 11:29:002.0[facility] KyfkmstASTQUOCBGN6345-82-00 11:29:006.4[facility] BGDGEMRLAX5605-48-29 11:29:005.2[facility] CwwzmxjZWWJFCULJN6645-88-25 11:29:00 72.0[facility] CfnyqapUZYUJPQJKM6734-30-73 11:29:0016.1[facility]annHEMATOLOGY 2015-06-16 11:29:00Normal (06/16/15 6:29 AM)[facility] TnfaooaPPOBEGPBRH0532-31-68 11:29:007.9[facility] LcwornmBHSWCXDDID7166-85-73 11:29:08629Tnblmpcv [place] XIOCUVCVAG5808-61-57 11:29:003.25[facility] QnudnaxVCAQTOYFLG6090-34-00 11:29:00 12.6[facility] EiswdmlSGGKOXRCCJ6786-97-57 11:29:0018.0[facility]annHEMATOLOGY 2015-06-16 11:29:009.4[facility] VsscbkbCSXPAWIHMP8823-48-18 11:29:0032.2[facility] TkquppyQUNIKAXKZV5270-52-58 11:29:00 Test Item Value Reference Range Interpretation Comments MCH (test code = MCH) 28.9 pg 27.0-31.0 [facility] DypqumbTUBZGZFPGC0180-11-53 11:29:0089.9[facility]annHEMATOLOGY 2015-06-16 11:29:0029.2[facility] HermannCHEM CAGGI5170-18-08 11:29:0010[facility] HermannCHEM GPRYY7734-99-42 11:29:003.1[facility]annCHEM BPVLI7471-30-16 11:29:47902Rdohrjmr HermannCHEM SHPTB9743-70-12 11:29:001.2[facility]annCHEM QAHXV6866-71-37 11:29:30343Jmtudasc HermannCHEM DWPOI7187-16-23 11:29:007.9 [facility]annCHEM JJOHM4330-66-90 09:49:000.2[facility]annCHEM PANEL 2015-06-14 09:49:000.1[facility]annCHEM CBCGY3432-65-16 09:49:000.3[facility]annCHEM ACGWF2521-53-48 09:49:0075[facility]annCHEM CCYBI6214-09-94 09:49:0024[facility]annCHEM NVSVJ7790-49-40 09:49:000.6[facility]annCHEM IUKSN2466-13-11 09:49:003.4[facility]annCHEM KBXSU4373-27-13 09:49:002.1 [facility]annCHE[facility] YSOTK6573-14-16 09:49:0014[facility]annCHEM PANEL 2015-06-14 09:49:005.5[facility]annCHEM JOSVI4919-31-58 09:49:0053[facility]annCHEM PTUGD0353-34-46 09:49:0026[facility]annCHEM ETPIP2012-00-35 09:49:93677Innzvwkt HermannCHEM UNVHB5511-39-43 09:49:008.2[facility]annCHEM YFDPU9332-84-77 09:49:0012.7[facility]annCHEM MHLBF4300-61-13 09:49:001.3 [facility]annCHEM DDVMF6605-33-81 09:49:003.7[facility]annCHEM PANEL 2015-06-14 09:49:93931Cewcyrwu HermannCHEM AMPXS6627-79-59 09:49:0014[facility]annCHEM KHFAD8333-74-64 09:49:0094[facility] XilcvauDOYTLXIPVJ4633-03-67 09:49:0033.0[facility] EoektpxGGIXXNXDCV7431-13-02 09:49:73492Zypdgbbw [place] ANAZDYJSBQ7937-75-44 09:49:007.1[facility] CxgrpcpYKLQTRELFI9046-50-94 09:49:00 18.4[facility] GohcucwWIQIUDLWUT1138-35-81 09:49:00 Test Item Value Reference Range Interpretation Comments MCH (test code = MCH) 30.2 pg 27.0-31.0 [facility] YgynhqnFNDMMXKMPK1913-31-87 09:49:0028.3[facility]annHEMATOLOGY 2015-06-14 09:49:0091.3[facility] DoebbxcTKTIOXACEU9635-99-66 09:49:007.4[facility] BnkycgjPCOXTZMLTL3298-55-46 09:49:003.09[facility] OljsqtnBTGELEWWFA6866-42-57 09:49:009.3[facility] UvvgvfpEPKKRIDOZC0661-64-00 09:49:000.6[facility] [place] NONSYSMZGF8510-23-84 09:49:001.0[facility] DfqwkfkNGIISWWEZK8721-93-45 09:49:003.9 [facility] NogunqeXUXLMSMHRC7815-58-52 09:49:001.8[facility]annHEMATOLOGY 2015-06-14 09:49:000.0[facility] UclqlbuVVQCYDLYBX9904-28-15 09:49:008.4[facility] BtouzkvQFKLEPLKDK9588-43-66 09:49:0013.7[facility] GbcrrstTBAJUHULFS7181-99-74 09:49:0053.2[facility] AqpfiiaYMWYPEJPKH9784-06-02 09:49:0024.5[facility] [place] BUNUQZGCWB5164-74-00 09:49:000.2[facility] ScqegwbJCAFCPXDXL4175-48-60 09:49:00 10.3[facility] YomxonnVJMUMUKQWY5219-78-65 09:49:0035.6[facility] HermannMOLECULAR MXEHLJYPCN2437-49-14 19:09:00Negative (06/12/15 2:09 PM)[facility] HermannCARDIAC YGZPZVS0992-22-95 11:00:00<0.02[facility] SerfffsVCVMSMYFMFQIG3726-92-68 11:00:0012.4[facility] HermannCHEM JGHSE6598-57-88 05:24:000.7[facility] CVWIHKBPTGMB1238-96-13 10:59:009.3[facility] VdqhyjpVOHDGXLEKTAD0520-45-87 10:59:0083[facility] AmobvexFHKLZPJYYTLW2709-93-46 10:59:0093[facility] [place] NXVQJLVLUEKW0747-79-75 10:59:57278Wqygecfd XkwgwixOAGBPJJLZAMU9140-95-98 10:59:000.9[facility] PdhelncLUXDNOZHCPJR0082-18-77 10:59:008[facility] TUOKPSSJWQBG0669-87-47 10:59:003.3[facility] VymazlwLGWJHEOCENGV4334-47-64 10:59:52419Jexkixcp FrchyxbJEZKRDWSGNIN1703-58-20 10:59:0027[facility] [place] KEMFKFSJUPMG8386-74-17 10:59:008.7[facility] XwjeppwGUGEMLSJST9313-71-78 10:59:00 9.2[facility] XackimhAOGRKEFWVY6724-89-41 10:59:007.4[facility]annHEMATOLOGY 2015-05-31 10:59:000.1[facility] DfvwacvKCGLRPRWUL8471-54-57 10:59:000.7[facility] FjklswnGKCIHASCUI1929-77-47 10:59:000.8[facility] ZbkjnnpLPBCAXPKJH4190-62-53 10:59:005.9[facility] CsukbhlXXCFHJWXKC5204-70-40 10:59:000.9[facility] [place] OZGIXOXAZL9714-04-30 10:59:002.3[facility] MxgwlezTTOLYWMPQM0026-28-53 10:59:00 23.3[facility] XlmjjrcWRSEXWLLVC3207-07-36 10:59:0059.3[facility]annHEMATOLOGY 2015-05-31 10:59:0033.4[facility] LpsozkpUSVOMMVPUY8537-56-88 10:59:00 Test Item Value Reference Range Interpretation Comments MCH (test code = MCH) 29.9 pg 27.0-31.0 [facility] DckjhneYABYHIANYD5462-67-67 10:59:0089.7[facility]annHEMATOLOGY 2015-05-31 10:59:007.9[facility] ImrtwktBDCFXCMBVF2511-53-67 10:59:66435Vnhjtrta NftrmjjUKEYDZGTKT8073-01-28 10:59:0017.2[facility] NjaxiyaKQZYOOOIAH8964-17-37 10:59:0010.0[facility] LfizkjzJQAUXJFXAZ5746-95-33 10:59:003.45[facility] [place] NFFHOYKHUT4311-49-84 10:59:0030.9[facility] BekzsikUHSRUVKRKL6892-10-61 10:59:00 10.3[facility] HermannCHEM CUHYP4244-72-82 10:47:000.9[facility] HermannELECTROLYTES 2015-05-30 10:47:0012.7[facility] UliipuiVSEOZCSVPEUD9723-01-63 10:47:0073[facility] MgiiukgTUCDTOANQNNO5888-53-18 10:47:0025[facility] FmljiemGJPTTIBFAPXQ8957-79-41 10:47:008.8[facility] QcdlnrfVIOCQHMANUOM8747-08-61 10:47:62579Xgjxhkey [place] UIABEPWACJRO3054-65-79 10:47:27396Xzadrdvx BnjxnenSTHXKDMBFCXK4487-30-53 10:47:009[facility] ToioobjBAPZFFVTCSPF4999-99-55 10:47:001.0[facility] [place] PGKGQWVVRHHZ3403-22-08 10:47:003.7[facility] AjaiqluFACVPVVDWKBQ7349-40-45 10:47:13834Jtvfpkdr TpjygajCLGIOAJWEN0969-83-53 10:47:0017.2[facility] [place] UKXBEOGZWN0896-05-56 10:47:87672Dnviipqm ZtmokgqVPYXQXTUQM7180-41-57 10:47:008.0 [facility] VqojurgODRPTXUFRA7631-90-83 10:47:0030.2[facility]annHEMATOLOGY 2015-05-30 10:47:0089.6[facility] DzmptjyAWUDCGMIZR9961-18-53 10:47:00 Test Item Value Reference Range Interpretation Comments MCH (test code = MCH) 29.4 pg 27.0-31.0 [facility] ZlcjglwHJMDOXNDGQ8488-79-83 10:47:0032.8[facility]annHEMATOLOGY 2015-05-30 10:47:0010.0[facility] EgzxfveQIUCXFMNPY2942-58-76 10:47:003.37[facility] XpmfoaqMQNYQUUUXH6742-85-43 10:47:009.9[facility] QllawrtKGNNVHWWSY8462-02-65 10:47:001.06[facility] JasrrwtAQOFWANWGH1894-13-94 10:47:00 Test Item Value Reference Range Interpretation Comments PTT (test code = PTT) 35.7 s 22.9-35.8 [facility] JhugeygJCPUFLPVST5849-97-85 10:47:00 Test Item Value Reference Range Interpretation Comments PT (test code = PT) 13.8 s 12.0-14.7 [facility] VonahtlPHIIJMUVCM7740-49-22 10:47:000.6[facility] HermannHEMATOLOGY 2015-05-30 10:47:000.1[facility] DufhtpiGPUQSHCNAT6028-52-01 10:47:000.9[facility] UlwkosqDMARVSXSKY8071-14-98 10:47:000.8[facility] BpjvchzVWKKBUFGTZ6102-86-60 10:47:006.2[facility] XhlttvbOAXCQRHKDU1593-60-95 10:47:002.3[facility] TUJHQQBJGC9646-54-54 10:47:0061.8[facility] MinxipwRETQNTPRWC2146-51-61 10:47:00 22.6[facility] EuccgzuIGLNOVTNBP7134-06-77 10:47:008.6[facility] HermannHEMATOLOGY 2015-05-30 10:47:006.2[facility] HermannCHEM UGJGE1987-70-56 11:13:0083[facility] HermannCHEM USEOY8528-74-29 11:13:008.6[facility] HermannCHEM QIQDR3545-74-87 11:13:00377Lfaqqwxt HermannCHEM WYFOI7813-94-61 11:13:0024[facility]annCHEM AEBXD0861-98-20 11:13:15274Yfpukutt HermannCHEM PRSPQ1587-75-38 11:13:000.9 [facility]annCHE[facility] LJIQV1081-23-24 11:13:02200Mqezanes HermannCHEM PANEL 2015-05-29 11:13:0010[facility] HermannCHEM DGTPI0859-18-26 11:13:003.3[facility] HermannCHEM MSMFM4733-21-19 11:13:0012.3[facility] BohpdppEGOYUNOCYB8706-52-49 11:13:0017.2[facility] SrhzzloKZKKLTZQSU8964-66-43 11:13:0032.9[facility] [place] VGHOCLAFZY4673-70-23 11:13:007.7[facility] QfssvfdRVGTZLCIWY1164-91-08 11:13:50375 [facility] GansngjPACHIJOLML5090-19-09 11:13:0030.7[facility] HermannHEMATOLOGY 2015-05-29 11:13:0010.1[facility] VhrrogrWECPPIGRMO8918-96-21 11:13:0089.0[facility] AtvobvpZTZVXAGFNT8819-30-77 11:13:00 Test Item Value Reference Range Interpretation Comments MCH (test code = MCH) 29.3 pg 27.0-31.0 [facility] XkneuehSJYAEAZQBM1146-75-02 11:13:003.45[facility]annHEMATOLOGY 2015-05-29 11:13:009.5[facility] BgocggfTACRUBYLHZ0710-91-52 11:13:001.03[facility] CihaipxJPATYOXRTG5296-63-98 11:13:00 Test Item Value Reference Range Interpretation Comments PTT (test code = PTT) 36.4 s 22.9-35.8 [facility] SeqocbsDQCVNEBQRI7614-64-30 11:13:00 Test Item Value Reference Range Interpretation Comments PT (test code = PT) 13.5 s 12.0-14.7 [facility] YtaqgiePMRRAEBAXL4891-50-08 11:13:005.9[facility] HermannHEMATOLOGY 2015-05-29 11:13:005.0[facility] IhniwjqIPWNORXKQF7296-04-98 11:13:002.2[facility] MhkydrqBBNNLAEFOC0815-35-74 11:13:000.4[facility] MwesyldSQQWMDGRXB0174-65-61 11:13:000.5[facility] ZqksgdhVJCBXVONGY5908-45-69 11:13:000.8[facility] [place] AYMXBZVQAH2977-87-71 11:13:000.0[facility] HimropbZGYZOWRAGQ6796-01-74 11:13:00 23.6[facility] XunemcfCWRONLRVZM9838-73-23 11:13:0062.5[facility] HermannHEMATOLOGY 2015-05-29 11:13:008.5[facility] DgwgqsmFNZQZNTHMC8810-03-80 11:13:00Normal (05/29/15 6:13 AM)[facility] ZowmoihVXEKWXEIYA9703-26-03 11:07:001.11[facility] JumkaayORLRLRDDEC7032-81-29 11:07:00 Test Item Value Reference Range Interpretation Comments PTT (test code = PTT) 41.8 s 22.9-35.8 [facility] GeijhpzSJCDIGPIFT0699-16-19 11:07:00 Test Item Value Reference Range Interpretation Comments PT (test code = PT) 14.4 s 12.0-14.7 [facility] UfbddnmPSYDDWXKJJ2480-95-83 18:11:0023.3[facility] HermannTOXICOLOGY 2015-05-25 18:17:1477827270Lnyhkmyd JfabndbYNTEBSTAJH6778-23-63 18:17:0034.6 [facility] HermannMOLECULAR EJDBRHURCD2034-81-86 03:46:00Negative (05/24/15 10:46 PM)[facility]annCHEM RXMLY2280-11-89 11:53:000.5[facility] HermannCHEM PANEL 2015-05-24 11:53:004.3[facility] HermannCHEM BZNVC1782-92-91 11:53:000.4[facility] HermannCHEM RLZXZ0401-41-33 11:53:0023[facility] HermannCHEM HIMTD3923-08-78 11:53:0026[facility] HermannCHEM LIWUU5097-63-29 11:53:000.2[facility] HermannCHEM GPUIN4606-68-66 11:53:98586Qgegctrc HermannCHEM CTVAJ0772-70-44 11:53:000.6 [facility]annCHEM GMDIV2807-18-14 11:53:006.4[facility] HermannCHEM PANEL 2015-05-24 11:53:002.1[facility] OqujebjNUWUBRAAAH2298-79-63 11:25:0014.1[facility] QewvtyaXRYITCDMOV9674-92-47 18:42:2118027778Dahdwaar CwjikumZYFLAJPVPV8137-48-55 18:42:0018.2[facility]annUR[facility] AND CVNJM4668-68-64 16:23:00Positive *ABN*(05/20/15 11:23 AM)[facility]annCHEM SKMOY9877-31-88 11:05:002.0[facility]annCHEM WWHSJ3056-66-94 11:05:000.7[facility]annCHEM ZCMVW5183-72-21 11:05:39959Ahktylho HermannCHEM INRDK5510-59-50 11:05:0031[facility] HermannCHEM HSVVY6808-33-47 11:05:0025[facility]annCHEM YEQHW7707-62-95 11:05:006.3 [facility]annCHEM HTGJF2148-13-26 11:05:0028[facility]annCHEM PANEL 2015-05-20 11:05:000.5[facility] HermannCHEM WFPDL3955-98-31 11:05:004.3[facility] FswbdusDKVZAXVQPK5928-75-44 18:35:518037Glrxbaeu DhqwvxdMVQUENIUUE6484-55-01 18:35:0016.7[facility]annBLOOD BANK HVDOKUH1393-01-73 11:30:00Negative (05/19/15 6:30 AM)[facility] ZNTZJJS8180-56-99 11:25:00Product available 1(05/19/15 6:25 AM)[facility]annCHEM KVLSZ6135-40-54 10:45:001.8 [facility]annCHEM BEVKM1584-19-77 10:45:0024[facility] HermannCHEM PANEL 2015-05-19 10:45:003.8[facility] HermannCHEM GHEIK9822-31-28 10:45:000.5[facility] HermannCHEM OZXTL1446-63-57 10:45:0028[facility]annCHEM UGQGM3090-78-64 10:45:08277Kiejqlee HermannCHEM VPNOP2838-14-85 10:45:000.5[facility]annCHEM VAQPM7266-53-99 10:45:005.6[facility] HermannCHEM VYUNT9511-35-59 10:45:0027 [facility]annCHEM QCZIS7038-46-84 12:42:000.2[facility] HermannCHEM PANEL 2015-05-18 12:42:0026[facility] HermannCHEM BDTHR7511-77-52 12:42:004.4[facility] HermannCHEM NXRDX0862-12-85 12:42:001.5[facility] SruwvhxZRJUWEZOUJ8275-70-15 12:42:000.6[facility] HermannCHEM REJJZ6052-06-65 03:20:002.2[facility]UR[facility] AND SUVFG8304-38-93 23:27:00Negative *NA*(05/16/15 6:27 PM)[facility] QXNVB2269-14-77 23:27:00 Test Item Value Reference Range Interpretation Comments UA Spec Grav (test code = UA Spec 1.010 1 Grav) [facility] NOPBH4763-84-97 23:27:00Clear (05/16/15 6:27 PM) [facility] LDHWB8524-41-41 23:27:00 Test Item Value Reference Range Interpretation Comments UA pH (test code = UA pH) 5.5 1 5.0-8.0 [facility] MUTJV4068-88-52 23:27:00Yellow *NA*(05/16/15 6:27 PM) [facility] BLPBT6916-22-27 23:27:00Negative (05/16/15 6:27 PM) [facility] EAOQA8278-16-10 23:27:000.2[facility] ITWNS8006-40-60 23:27:00Negative (05/16/15 6:27 PM)[facility] EFYAO3025-26-95 23:27:00Negative (05/16/15 6:27 PM)[facility] LONIR4670-30-35 23:27:00None Seen (05/16/15 6:27 PM)[facility] EEUBU7118-53-21 23:27:0011-20 (05/16/15 6:27 PM)[facility] HermannCARDIAC ENZYMES 2015-05-16 22:24:00<0.02[facility] HermannCARDIAC JMJTDHE1387-44-10 22:24:0011 [facility]annCARDIAC AQXWHAX3824-02-11 22:24:00<0.5[facility] HermannCARDIAC LAGAKJD5516-10-34 22:24:00<4.5[facility] VwpelcnYXLBXCNZYM8842-40-42 22:24:001+ *ABN*(05/16/15 5:24 PM)[facility] BjmrljlUEWAPDTNLU8866-62-91 22:24:00Occasional *ABN*(05/16/15 5:24 PM)[facility] RqzhbshKQNMIJCATR6515-40-31 22:24:001+ *ABN*(05/16/15 5:24 PM)[facility] UmcwgmsNPNTFHLADO0973-36-05 22:24:00Normal (05/16/15 5:24 PM)[facility] GPIMW9865-39-83 22:24:00Negative (05/16/15 5:24 PM)[facility] HermannCHEM BLGBN8952-74-45 11:34:0059[facility] [place] CHEM PJAJP1658-07-32 11:34:0023[facility] HermannCHEM QAKXL3891-45-62 11:34:004.0 [facility]annCHEM VOJOS4759-91-38 11:34:55705Vjrlvtds HermannCHEM PANEL 2015-04-27 11:34:008.2[facility] HermannCHEM LJGIU0052-05-33 11:34:0035[facility]annCHEM EJIUI4296-71-60 11:34:001.2[facility] HermannCHEM XPDPC3923-57-12 11:34:08040Ulqcbjii HermannCHEM RFUEN3298-61-00 11:34:66329Cbsptoel HermannCHEM ALWBO4664-98-92 11:34:0013.0[facility] JzsiivjKUALILDERD3847-73-77 11:34:000.0 [facility] MjlvqmfQCGFBJCONX6214-76-14 11:34:0016.8[facility] HermannHEMATOLOGY 2015-04-27 11:34:000.4[facility] RzuwuvwRMPFLKKOXU8066-81-66 11:34:001.5[facility] ZizrfurOQAAJEMGWR2036-65-70 11:34:004.6[facility] FccffinOUOKNJWNXL7017-49-77 11:34:000.1[facility] VuluquhKWJAPVHEWO6959-14-05 11:34:001.3[facility] [place] VIBUAAPXWD6736-02-68 11:34:0020.2[facility] WngdxpbQHNOJLBZUT0565-24-88 11:34:00 1.0[facility] TdnupuyMFBIPFDWQF5618-21-37 11:34:0061.6[facility] HermannHEMATOLOGY 2015-04-27 11:34:0032.6[facility] AaofbdmIBKJRSBEKT1027-00-53 11:34:67429Kuoesfxb LjrwkynYUKOSXIESP1732-91-53 11:34:00 Test Item Value Reference Range Interpretation Comments MCH (test code = MCH) 29.4 pg 27.0-31.0 [facility] OlbqfnoATZZTSVKWD2349-39-91 11:34:007.5[facility] HermannHEMATOLOGY 2015-04-27 11:34:002.87[facility] EpxsuiuHHVBXZLEXO0628-29-60 11:34:008.4[facility] MxkyiktLJMRMPSJMZ7365-93-48 11:34:0090.1[facility] IkiirxsRWAAZDSALC9729-42-20 11:34:0025.9[facility] OcwkdrpXOBZCPCVAT7697-20-18 11:34:0015.6[facility] [place] SYFUTUQRYH3260-85-93 11:34:008.4[facility] HermannCHEM NTXYM8012-55-36 17:11:0059 [facility]annCHEM IGTFM5611-21-79 17:11:008.4[facility] HermannCHEM PANEL 2015-04-24 17:11:0024[facility] HermannCHEM QWLWH3149-83-36 17:11:50681Ntqbsqcj HermannCHEM OMBVS0746-49-31 17:11:0096[facility] HermannCHEM HNJBQ4210-55-86 17:11:005.2[facility] HermannCHEM EHVHJ6090-45-94 17:11:35521Agqhwvgl HermannCHEM TPCTT5970-82-16 17:11:001.2[facility] HermannCHEM TUYRO0172-21-29 17:11:0035 [facility]annCHEM KKXII1992-98-64 17:11:0014.2[facility]annBLOOD BANK FJGXPZM9337-58-40 03:58:00Negative (04/20/15 10:58 PM)[facility]annBL[facility]OD BANK BONSHHH0944-43-60 02:05:00Product available 1(04/20/15 9:05 PM)[facility] DYZIEMMHJH3564-05-06 11:35:009.0[facility] UaamwbdVGHUBWWWHO3412-02-48 11:35:00 16.2[facility] OrlpshhDVJQJZQEYJ5238-15-25 11:35:0033.5[facility] HermannHEMATOLOGY 2015-04-20 11:35:00 Test Item Value Reference Range Interpretation Comments MCH (test code = MCH) 30.8 pg 27.0-31.0 [facility] ZnjqcxpXTSMXYKYDJ4022-82-88 11:35:0091.8[facility] HermannHEMATOLOGY 2015-04-20 11:35:0024.5[facility] XqmyhhrUKVURXRMJX1846-43-75 11:35:008.2[facility] KezrrgeLOEOSUZHJD1006-18-10 11:35:002.66[facility] AvocgvnITRMOSIKBB2968-68-06 11:35:008.7[facility] ZbyvrnkCCHWCYIBYR5082-34-29 11:35:71333Jmsyqnaq [place] QEOPPKUBAP1708-82-43 11:35:001.1[facility] ZcoluhrYUTMVHGWVU6650-87-87 11:35:000.0 [facility] OcigrldEHDWZUMUEB5976-86-04 11:35:000.1[facility] HermannHEMATOLOGY 2015-04-20 11:35:001.4[facility] OdjduqvBCRZYNHLLA0011-90-74 11:35:006.0[facility] ZkxmdmiIINEFPXRVP6497-52-09 11:35:000.4[facility] OgbbncbJKKWOFMHLH4034-93-99 11:35:001.5[facility] XivrgxrXBMSIXRJFR0274-72-39 11:35:0012.7[facility] XYCNCQBJBX6590-90-51 11:35:0016.6[facility] UrkkxtyHADRLOKCAZ0390-78-73 11:35:00 68.8[facility] HermannCHEM NVQNU6613-46-81 11:21:0054[facility] HermannCHEM PANEL 2015-04-19 11:21:004.1[facility] HermannCHEM TKMQN6780-60-62 11:21:001.3[facility] HermannCHEM SWLIG0851-35-17 11:21:30521Umkvwalz HermannCHEM POOGX0285-50-94 11:21:0041[facility] HermannCHEM CAQHQ5880-92-32 11:21:75304Jxvtxpug HermannCHEM NLOTW8708-89-67 11:21:0031[facility] HermannCHEM KUYOL4344-43-31 11:21:16148 [facility]annCHEM LFKDE3408-83-91 11:21:0028[facility] HermannCHEM PANEL 2015-04-19 11:21:000.6[facility] HermannCHEM FMXZN7525-65-94 11:21:005.7[facility] HermannCHEM LRMHS5223-40-76 11:21:001.9[facility] HermannCHEM WLCWN9299-53-45 11:21:0098[facility] HermannCHEM WJKTY6545-95-49 11:21:0022[facility] HermannCHEM JJZGY3959-65-35 11:21:007.8[facility] HermannCHEM LQJCM5764-56-22 11:21:0015.1 [facility]annCHEM NSNNK2633-84-15 11:21:0032[facility] HermannCHEM PANEL 2015-04-19 11:21:003.8[facility] HermannCHEM FHUXW3085-36-59 11:21:000.5[facility] FfxinfgSZLWXVUXID4840-47-29 11:21:92836Einduyuq YzuytybLEHHHPICMW1092-31-79 11:21:009.1[facility] BfvlkkpEXNNPOBOQN6803-32-77 11:21:0033.9[facility] USRXUDWHZD9770-14-70 11:21:0016.0[facility] KwgeskjDEOPMVHPNJ8577-33-35 11:21:00 12.7[facility] XjchzryIDQTRRLMKK4982-84-02 11:21:009.0[facility] HermannHEMATOLOGY 2015-04-19 11:21:002.88[facility] PjjpwcoPHGGPTRPIT6364-91-22 11:21:0092.4[facility] XjiwvtlBGVOYSSBHM8668-15-17 11:21:00 Test Item Value Reference Range Interpretation Comments MCH (test code = MCH) 31.3 pg 27.0-31.0 [facility] MeyvofaPALGZYMRHB3738-04-67 11:21:0026.6[facility] HermannHEMATOLOGY 2015-04-19 11:21:000.3[facility] CqcygtlYYMRMRNRLV4651-36-38 11:21:000.1[facility] AfeuhoaRTLHDOOUJU2555-47-23 11:21:001.7[facility] LsryzriOSKPTOACWK8739-71-47 11:21:002.0[facility] FvzfvpsJMHWXLXXAR9257-56-63 11:21:009.6[facility] [place] NFGCRXSQGI2566-63-16 11:21:001.1[facility] QqdaiktXIEEWDWOAN6652-30-50 11:21:000.5 [facility] KeavxfrNJLPIMTENX2867-91-40 11:21:008.5[facility] HermannHEMATOLOGY 2015-04-19 11:21:0075.5[facility] LhugmbwDZYKNMICDH1309-13-43 11:21:0013.5[facility] HermannCHEM BKHSI9967-35-24 10:53:54539Fddbnbbz HermannCHEM UXHEI6280-81-54 10:53:000.8[facility] HermannCHEM UEXYU7539-73-54 10:53:0032[facility]annCHEM VYJFE5805-95-10 10:53:003.6[facility] HermannCHEM XICOQ1140-80-78 10:53:000.6 [facility]annCHEM JBTRO5783-25-71 10:53:005.6[facility] HermannCHEM PANEL 2015-04-17 10:53:002.0[facility] HermannCHEM LQVTG1641-10-70 10:53:0034[facility]annCHEM RRYWA9965-26-78 10:53:0038[facility] HermannCHEM HVACX3510-36-02 11:01:000.8[facility]annCHEM CJJDP0473-52-32 11:01:002.1[facility] HermannCHEM BOMRW6729-80-80 11:01:005.5[facility] HermannCHEM PISPY3270-78-16 11:01:0028 [facility]annCHEM HOTRO8721-79-98 11:01:92127Ajzubprq HermannCHEM PANEL 2015-04-16 11:01:0041[facility] HermannCHEM MCVMV1764-76-30 11:01:0045[facility] HermannCHEM LXHZU5592-02-22 11:01:000.6[facility] HermannCHEM AGHCC1930-26-11 11:01:003.4[facility]annBLOOD BANK XUAANQD6621-30-08 18:52:00Negative (04/15/15 1:52 PM)[facility]BL[facility]OD BANK PXECUEV9832-37-19 17:09:00Product available 2(04/15/15 12:09 PM)[facility]annCHEM MTIZD1638-83-41 10:16:004.0 [facility]annCHEM VSUHE6928-17-48 10:16:001.8[facility] HermannCHEM PANEL 2015-04-12 11:06:002.0[facility] HermannCHEM TZUSP2678-08-92 11:06:003.2[facility] HermannCHEM OSIVA0168-81-19 10:55:000.3[facility] HermannCHEM MCFWP5599-28-37 10:55:000.2[facility] XtecqxcEIKSIABKOS7630-62-88 10:55:0015.7[facility] HermannCHEM UDSOG8385-46-94 10:19:003.4[facility] HermannCHEM HLHJK4139-27-90 10:19:002.3 [facility] HtbjzvzOXLRBYNRUM3434-73-82 10:19:008.0[facility] HermannHEMATOLOGY 2015-04-09 10:19:000.0[facility] AfrxsmuSVDXHVACZE6269-49-11 10:19:00Normal (04/09/15 5:19 AM)[facility] XcautciSYJCIQWNQS8368-91-18 10:19:00 Test Item Value Reference Range Interpretation Comments Tot Cell Ct (test code = Tot Cell Ct) 100 1 [facility] DcsjhmoWSZJTPAHHO3206-98-48 10:19:001.43[facility] HermannHEMATOLOGY 2015-04-09 10:19:00 Test Item Value Reference Range Interpretation Comments PT (test code = PT) 17.7 s 12.0-14.7 [facility] AartkouBIDDKCGHQF5624-05-30 10:19:00 Test Item Value Reference Range Interpretation Comments PTT (test code = PTT) 35.4 s 22.9-35.8 [facility] MbmzkzbKLPBSXBFYY3732-37-91 10:19:0014.9[facility] HermannBACTERIAL - BCOFTCVY5005-05-67 00:24:00Negative 18(04/08/15 7:24 PM)[facility] HermannCARDIAC JISBXBC0823-98-27 08:20:000.05[facility] HermannCHEM JZRKC4410-97-31 07:58:000.2 [facility] HermannCHEM GWXJD0199-48-21 07:58:000.3[facility] HermannHEMATOLOGY 2015-04-08 07:58:0014.0[facility] VbhnzzkQFHLILLRGB8198-13-44 07:58:00 Test Item Value Reference Range Interpretation Comments Tot Cell Ct (test code = Tot Cell Ct) 100 1 [facility] NiutxutLXVLJIISFQ4850-28-63 07:58:000.0[facility] HermannHEMATOLOGY 2015-04-08 07:58:00Normal (04/08/15 2:58 AM)[facility] EsyosrlTDVCIWVTXE2512-44-34 07:58:00Normal (04/08/15 2:58 AM)[facility] KrqybfdFOQEXWRYHF0159-28-97 07:58:00 24.6[facility]annURINE RQZN3275-97-32 23:45:0020[facility]annURINE CHEM 2015-04-07 23:45:75054.9[facility]annUR[facility] AND PMBKW0926-50-65 23:44:00 Negative (04/07/15 6:44 PM)[facility] UCAGW2475-47-86 23:44:00 Negative *NA*(04/07/15 6:44 PM)[facility] BFKPE3516-73-72 23:44:00 Negative (04/07/15 6:44 PM)[facility] AND YKIDB8998-29-58 23:44:00 Test Item Value Reference Range Interpretation Comments UA pH (test code = UA pH) 5.0 1 5.0-8.0 [facility] YFFGH8585-35-49 23:44:00Negative (04/07/15 6:44 PM) [facility] SWIHF7054-10-11 23:44:00Negative (04/07/15 6:44 PM) [facility] OIIYK6752-47-98 23:44:000.2[facility]UR[facility] AND GDNZR5423-90-35 23:44:00Trace *ABN*(04/07/15 6:44 PM)[facility] HULXV1596-57-25 23:44:00Small *ABN*(04/07/15 6:44 PM)[facility]UR[facility] AND HEWPP0854-62-76 23:44:00Slight Cloudy (04/07/15 6:44 PM)[facility] BBCFA2514-24-09 23:44:00Yellow *NA*(04/07/15 6:44 PM)[facility] AND HFSZB3269-78-94 23:44:00>=1.030 *ABN*(04/07/15 6:44 PM)[facility]annURINE KMFV5789-18-69 23:44:00None Seen (04/07/15 6:44 PM)[facility] HermannCARDIAC IXPTRUP7754-64-38 14:35:001.8[facility] HermannCARDIAC FDDMCTY6155-58-58 14:35:00 <0.02[facility] HermannCHEM HAKME0841-38-83 14:35:001.9[facility] [place] IOXSFWHROK8360-72-97 11:28:00 Test Item Value Reference Range Interpretation Comments Tot Cell Ct (test code = Tot Cell Ct) 100 1 [facility] QagxzibHJENMDPVJI0260-67-08 11:28:00Normal (04/07/15 6:28 AM)[facility] AotatqoFZYKTYNZOI4166-96-57 11:28:000.0[facility] TedfsuyUTHJEVUCLW1085-15-96 11:28:0014.0[facility]annURINE AND LVTYX2217-12-57 16:00:000.2[facility]UR[facility] AND VGNSD7405-26-11 16:00:00Negative (04/06/15 11:00 AM)[facility] DIHVZ0350-59-42 16:00:00Negative *NA*(04/06/15 11:00 AM)[facility] OJXUU0548-56-54 16:00:00Negative (04/06/15 11:00 AM)[facility] VBPIW8407-99-86 16:00:00Negative (04/06/15 11:00 AM)[facility] ICNZT3358-77-46 16:00:00Negative *NA*(04/06/15 11:00 AM)[facility] UTXKB3742-84-63 16:00:00Negative (04/06/15 11:00 AM)[facility] TOSCL3744-89-11 16:00:00 Test Item Value Reference Range Interpretation Comments UA pH (test code = UA pH) 5.5 1 5.0-8.0 [facility] DOBMI4376-62-61 16:00:00 Test Item Value Reference Range Interpretation Comments UA Spec Grav (test code = UA Spec 1.010 1 Grav) [facility] JANPV1983-08-45 16:00:00Yellow *NA*(04/06/15 11:00 AM) [facility] IHDQS0370-60-24 16:00:00Clear (04/06/15 11:00 AM) [facility]annBLOOD BANK FRPHHXD2455-85-14 15:10:00Negative (04/06/15 10:10 AM) [facility]annCHEM NIMRD6969-41-50 10:59:002.3[facility] HermannCHEM PANEL 2015-04-06 09:13:80864Bpoxavqn TlapsxoQBBMHWGNYP8645-96-13 09:13:00 Test Item Value Reference Range Interpretation Comments PT (test code = PT) 14.8 s 12.0-14.7 [facility] OiwakuiRUBKAUAIEG4456-32-98 09:13:001.15[facility] HermannHEMATOLOGY 2015-04-06 09:13:00 Test Item Value Reference Range Interpretation Comments PTT (test code = PTT) 32.9 s 22.9-35.8 [facility] DkvmieuOEGWYUGNSW2580-27-16 10:59:000.6[facility] HermannHEMATOLOGY 2015-04-03 10:59:001.2[facility] QavzkrsVFBCXVITBB6741-60-29 10:59:000.2[facility] NizqlepKKSNLGUTTA9041-24-19 10:59:000.0[facility] AfzfpqhEQLXETJKZM2889-64-33 10:59:007.4[facility] ZllprpxWXGQLFNWDB8466-25-14 10:59:001.8[facility] [place] UBXCPSTBMW4787-79-73 10:59:0076.7[facility] WzygbizMCNMXXTJMS0327-12-09 10:59:00 0.2[facility] HtlfpfnPWDACVKDIR4695-92-97 10:59:006.7[facility] 2015-04-03 10:59:0013.9[facility] VxxhmfsQGZTXHORVB6163-92-68 10:59:0033.8[facility] BqgalqoYJXLPWQJFC4421-90-52 10:59:008.1[facility] SlzxvkbSDLDJSPNCY6438-86-12 10:59:08736Ykkcpvlk WrulzaaTPOZXMKODH7737-71-46 10:59:0015.2[facility] UWYKBSSPXM1544-09-69 10:59:009.9[facility] LxqainkSTEATBQPNN1292-34-22 10:59:00 Test Item Value Reference Range Interpretation Comments MCH (test code = MCH) 32.6 pg 27.0-31.0 [facility] BhxerobJCPXLJPZNJ8921-64-01 10:59:003.05[facility] 2015-04-03 10:59:008.8[facility] TklsahjNNMBGRQKRL7654-15-71 10:59:0096.3[facility] QxzihmmCMMZRWIZER6820-78-67 10:59:0029.4[facility]annCHEM GCKOC1324-48-83 10:49:003.3[facility]annCHE[facility] TOCPZ2891-72-74 10:49:001.9[facility]annCHEM YEOZT1699-39-37 10:49:0074[facility]annCHE[facility] IIFVV4935-52-31 10:49:63935 [facility] ULFNT3843-88-33 10:49:001.0[facility]annCHEM PANEL 2015-04-02 10:49:91289Bybvgbxz HermannCHEM JYVKA7118-01-47 10:49:008.5[facility]annCHEM WVDEU3297-98-88 10:49:004.1[facility]annCHE[facility] FYLTP6497-92-07 10:49:0030[facility]annCHE[facility] ZWYIH1414-76-71 10:49:74132Ybyagtio HermannCHEM HKYWD8753-99-94 10:49:0020[facility]annCHE[facility] RGGIF1242-71-05 10:49:0011.1 [facility] HbwmnpsAYMNIVLSNF9127-14-22 10:49:000.0[facility]HE[facility]Y 2015-04-02 10:49:000.1[facility] MgxfabeYXJUTKKGLO6454-38-80 10:49:000.8[facility] OgulqxgEAQEHBOWTD1217-30-70 10:49:001.5[facility] YxgpoumIAQFGKOGTG3887-85-59 10:49:0074.2[facility] DijtwfgFZSMQVUEHG3881-16-19 10:49:000.7[facility] MAMKKMIIYT5201-51-02 10:49:006.8[facility] MjlxfvrYHRBXLFIYN3706-34-85 10:49:008.8 [facility] CyffleqKWDLXKFTEY3171-05-22 10:49:0015.9[facility]HE[facility] 2015-04-02 10:49:000.4[facility] EolzmmuGPGYNTWRMY7728-89-19 10:49:61286Ggqnhtht ObyykgaDLALEBREGF4783-03-75 10:49:008.0[facility] UsmgmzuNCQFPSDUBA3519-89-82 10:49:0029.8[facility] MdywelxHADIIUYGPL0550-55-83 10:49:00 Test Item Value Reference Range Interpretation Comments MCH (test code = MCH) 31.8 pg 27.0-31.0 [facility] FtpipjwLNYUXUSUPV5424-07-08 10:49:0097.0[facility] 2015-04-02 10:49:0015.5[facility] AwhfmosKZLGQCQTXB8356-66-43 10:49:0032.8[facility] ZwyzhsrTXFTEGZHOM2867-45-89 10:49:003.08[facility] OkexrilASQPNXYFIO2160-61-41 10:49:009.2[facility] RunfrejGNXSEFFUGU0393-14-50 10:49:009.8[facility]annCHEM YRPPS6271-53-28 12:20:002.1[facility]annCHEM LFXDT5560-10-07 12:20:002.9 [facility] AsruvktFDIBTOPPOETL8892-78-28 12:20:0010.5[facility] HermannELECTROLYTES 2015-04-01 12:20:0066[facility] SnyyyifCQJXDYPBLQJI7080-92-24 12:20:0031[facility] PcdhiaxKYYMZXIEXRWV4243-49-51 12:20:77576Udzjzfkr ArthfdcYGTKVKBJVVBG4347-98-22 12:20:0017[facility] HaqfeodRGLPAGWJEMYS9444-90-94 12:20:008.7[facility] XMKEFOFISLAC1552-87-28 12:20:24198Hxwfonku GzzdzkaUVNLHTTKJMPR7829-81-20 12:20:004.5[facility] IcqmutjNKOYIEJAEQAL7996-74-05 12:20:06501Auruywgx [place] NNEJPGCIQLUK7880-90-00 12:20:001.1[facility] GxdhpmtTHFFCXLOAA8452-40-91 12:20:00 80.4[facility] UxcclaeQCRIZYLOPL8595-62-79 12:20:008.5[facility]HE[facility]Y 2015-04-01 12:20:0010.8[facility] PiweonaQTTXMSJZDO3522-00-69 12:20:000.1[facility] MhjtsqwVAWGMKOEUR2285-04-10 12:20:000.2[facility] MyeedpkHCBUMSBSBD4437-76-04 12:20:0012.3[facility] YefakfaLPUTTEMVAZ6429-51-05 12:20:001.3[facility] LKBZGQADGB0595-03-03 12:20:001.6[facility] BfvnisjPHBAZMEZWM1996-76-36 12:20:000.0 [facility] YmavfyvABZNEGHUZU3626-46-27 12:20:000.0[facility]HE[facility]Y 2015-04-01 12:20:0015.2[facility] RausfzqQHZCDARQYR3503-67-84 12:20:0010.6[facility] NzqvpvfFALUSISLTF1648-18-07 12:20:0033.2[facility] IguxpndEXOEDGIGYF5678-46-72 12:20:003.30[facility] YyfbebfNQGJBULYAB0743-54-72 12:20:007.6[facility] LDCUMRHFMA1949-90-49 12:20:0097.0[facility] QmcwfidTBIFOKQYTF2850-54-58 12:20:00 32.0[facility] DergxkgUVADMDWOXQ9325-98-06 12:20:00 Test Item Value Reference Range Interpretation Comments MCH (test code = MCH) 32.2 pg 27.0-31.0 [facility] UevrsqtUTSPURJXPO5757-26-21 12:20:00071Fhqvbmgn HermannHEMATOLOGY 2015-04-01 12:20:0015.2[facility]annCHEM KEGDR9725-25-29 12:51:0066[facility]annCHEM FXZOE5750-92-89 12:51:0019[facility]annCHEM AOXRK3396-67-97 12:51:03375Fzalgifv HermannCHEM QCJSX8183-90-34 12:51:004.4[facility]annCHEM WQNHR0262-12-68 12:51:36283Ahdmwqor HermannCHEM OYFZO2730-62-22 12:51:71741 [facility]annCHE[facility] IHCDH2702-98-98 12:51:001.1[facility]annCHEM PANEL 2015-03-31 12:51:0029[facility]annCHEM ZTSXE8810-99-77 12:51:008.7[facility]annCHEM BREVP7568-74-89 12:51:0011.4[facility]annCHEM PQEYL3409-90-07 12:51:003.5[facility]annCHEM XZRWU6042-91-32 12:51:001.7[facility] [place] NJFCWSSMBJ2463-71-26 12:51:00Normal (03/31/15 7:51 AM)[facility] 2015-03-31 12:51:00Normal (03/31/15 7:51 AM)[facility]annBL[facility] BANK RESULTS 2015-03-30 18:01:00Product available 1(03/30/15 1:01 PM)[facility] IHUQTZP7407-85-00 13:50:00Negative (03/30/15 8:50 AM)[facility]annCHE[facility] HKHOU9224-71-29 08:54:0035[facility]annCHEM HUWZU7946-65-31 08:54:002.6 [facility]annCHE[facility] KJFHC5465-76-38 08:54:001.1[facility]annCHEM PANEL 2015-03-30 08:54:0042[facility]annCHEM WQLUU5988-67-60 08:54:48519Csmixbdt HermannCHEM DCEAD6569-30-36 08:54:005.9[facility]annCHEM BVBVO9462-41-57 08:54:003.3[facility]annCHEM LDVBF8291-41-81 08:54:0015[facility]annCHEM DOJTE2157-10-23 08:54:000.8[facility] HermannCARDIAC CTTOKTL6350-08-75 12:09:00 <0.02[facility]annCHEM VJLUG6487-02-41 12:04:006.3[facility]annCHEM FIAEK1360-76-14 12:04:0018[facility]annCHEM UHUJW0387-67-69 12:04:002.8 [facility]annCHE[facility] BLBBV7003-76-60 12:04:0066[facility]annCHEM PANEL 2015-03-29 12:04:29438Mdngzjve HermannCHEM EXQEZ1281-71-92 12:04:002.1[facility]annCHEM XKRGE6290-02-34 12:04:000.8[facility] HermannCHEM FTGKZ5985-28-11 12:04:0043[facility] [id number] 12:04:003.5[facility] [id number] 18:59:00 Test Item Value Reference Range Interpretation Comments UA pH (test code = UA pH) 6.0 1 5.0-8.0 [facility] [id number] 18:59:00 Test Item Value Reference Range Interpretation Comments UA Spec Grav (test code = UA Spec 1.020 1 Grav) [facility] [id number] 18:59:00Clear (03/28/15 1:59 PM) [facility] [id number] 18:59:00Yellow *NA*(03/28/15 1:59 PM) [facility] [id number] 18:59:00Negative *NA*(03/28/15 1:59 PM) [facility] [id number] 18:59:00Negative (03/28/15 1:59 PM) [facility] [id number] 18:59:00Negative (03/28/15 1:59 PM) [facility] [id number] 18:59:00Negative (03/28/15 1:59 PM) [facility] [id number] 18:59:000.2[facility] [id number] 18:59:00None Seen (03/28/15 1:59 PM)[facility] [id number] 18:59:00None Seen (03/28/15 1:59 PM)[facility] [id number] 18:43:004.3[facility]ARD[facility] [id number] 18:43:00 <0.02[facility] [id number] 18:43:0054[facility] C[facility] [id number] 18:43:002.3[facility]CHE[facility] [id number] 18:43:0043[facility]annCHE[facility] [id number] 18:43:09020Xorqfpic HermannCHEM [id number] 18:43:004.0[facility] [id number] 18:43:000.5 [facility] [id number] 18:43:000.8[facility]ann[facility] PANEL 2015-03-28 18:43:0022[facility]annCHE[facility] [id number] 18:43:0031[facility] [id number] 18:43:83623Cxpetdhs HermannCHEM [id number] 18:43:0034[facility]ann[facility] [id number] 18:43:003.0[facility] [id number] 18:43:007.0[facility] [id number] 18:43:001+ *ABN*(03/28/15 1:43 PM)[id number] 18:43:00Normal (03/28/15 1:43 PM)[facility] [id number] 18:43:001.06[facility] [id number] 18:43:00 Test Item Value Reference Range Interpretation Comments PTT (test code = PTT) 34.6 s 22.9-35.8 [id number] 18:43:00 Test Item Value Reference Range Interpretation Comments PT (test code = PT) 13.8 s 12.0-14.7 [facility]
[2021-01-06 15:48] LABS: Absolute Lymphocytes (CBC) 1.5 K/uL (0.7-4.9); Basophils % 0.4 % (0-1.3); Hematocrit 35.6 % (39.6-49.0); MPV 7.7 fL (7.6-11.3); RBC Red Blood Cell Count 4.18 M/uL (4.33-5.43)
[2021-01-06 16:16] LABS: Albumin 3.4 g/dL (3.4-5.0); Bilirubin Direct 0.1 mg/dL (0-0.2); Bilirubin Total 0.4 mg/dL (0.2-1.0); Protein, Total 7.1 g/dL (6.4-8.2)
[2021-01-06] MEDS ORDERED: PANTOPRAZOLE 40 MG INJ ONE (16:51)
[2021-01-06] MEDS ORDERED: NA CHLORIDE 0.9% 500 ML ONE ×2 (16:51→18:45)
--- NOTE | 2021-01-06 17:10 | RAD REPORT ---
EXAM DESCRIPTION: CT - Head Brain Wo Cont - 01/06/2021 4:53 pm CLINICAL HISTORY: Syncope COMPARISON: None TECHNIQUE: Computed axial tomography of the head was obtained. IV contrast was not requested. All CT scans are performed using dose optimization technique as appropriate and may include automated exposure control or mA/KV adjustment according to patient size. FINDINGS: An intracranial bleed is not seen . The ventricles are normal in caliber. No extra-axial fluid collection is noted. Fluid within the sinuses/ mastoids is not seen. IMPRESSION: No acute intracranial abnormality is seen. If patient's symptoms persist MRI of the bra in would be recommended.
--- NOTE | 2021-01-06 17:21 | RAD REPORT ---
EXAM DESCRIPTION: CT - Abdomen Pelvis Wo Contrast - 01/06/2021 4:54 pm CLINICAL HISTORY: Abdominal pain COMPARISON: April 2020 TECHNIQUE: Computed axial tomography of the abdomen and pelvis was obtained. IV and oral contrast we re not requested. All CT scans are performed using dose optimization technique as appropriate and may include automated exposure control or mA/KV adjustment according to patient size. FINDINGS: The evaluation of solid organs, vessels and bowel is limited secondary to the lack of con trast administration. Right usama colectomy. Fluid within nondilated colon. No evidence of diverticulitis. The liver, spleen, pancreas, adrenals and kidneys appear grossly normal. Vascular calcifications. Minimal soft tissue anterior lower right pelvis has mostly resolved since th e prior exam and is not considered significant IMPRESSION: Fluid within nondilated colon may indicate diarrhea.
[2021-01-06] MEDS ORDERED: ONDANSETRON 4 MG/2 ML VIAL ONE (17:26)
--- NOTE | 2021-01-06 17:29 | RAD REPORT ---
EXAM DESCRIPTION: Joel Single View01/06/2021 5:05 pm CLINICAL HISTORY: Chest pain COMPARISON: May 2020 FINDINGS: Right upper lobe opacity again demonstrated. Lungs are hyperaerated. Left lung appears clear. Heart is normal size. Pacemaker leads in place
[2021-01-06] MEDS ORDERED: FENTANYL CITR 100 MCG/2 ML ONE (17:47)
[2021-01-06 17:57] LABS: Protime INR 1.05
[2021-01-06 18:11] LABS: Magnesium 1.7 mg/dL (1.8-2.4); Troponin I 0.02 ng/mL (0.0-0.045)
--- NOTE | 2021-01-06 18:26 | EDPHYS ---
Physician Documentation [facility] Name: Tomer Mckeon Age: 80 yrs Sex: Male : 1940 Arrival Date: 01/06/2021 Time: 14:53 Bed 6 Private MD: ED Physician Rodney Garcia HPI: 01/06 15:35 This 80 yrs old Male presents to ER via Wheelchair with complaints of cp Abdominal Problem, Weakness, Decreased Appetite. 15:35 The patient presents with abdominal pain in the upper abdomen. Onset: The cp symptoms/episode began/occurred 5 day(s) ago. Associated signs and symptoms: Pertinent positives: nausea, vomiting, and diarrhea, Pertinent negatives: blood in stools, chest pain, dysuria, fever, shortness of breath, testicular pain, vomiting blood. The patient has experienced similar episodes in the past, several times. Historical: - Allergies: 15:18 HYDRALAZINE; iw - Home Meds: 15:25 Eliquis 5 mg oral tab 1 tab 2 times per day [Active]; Lipitor 40 mg Oral tab 1 tab once iw daily [Active]; finasteride 5 mg oral tab once daily [Active]; folic acid 400 mcg Oral tab 1 tab once daily [Active]; gabapentin 600 mg oral tab 1 tab 3 times per day [Active]; losartan 100 mg oral tab 1 tab once daily [Active]; metoprolol tartrate 12.5 mg Oral tab 1 tab 2 times per day [Active]; sucralfate 1 gram Oral tab three times a day [Active]; clonidine HCl 0.1 mg Oral tab as needed [Active]; retcrit as needed [Active]; nitroglycerin 0.4 mg SL subl 1 tab every 5 minutes [Active]; hydrocodone-acetaminophen 7.5-325 mg Oral tab 1 tab every 4-6 hours [Active]; trazodone 100 mg Oral tab nightly [Active]; meclizine 12.5 mg Oral tab as needed [Active]; azelastine 0.15 % (205.5 mcg) nasal spry 1 spray once daily [Active]; pantoprazole 40 mg oral TbEC 1 tab once daily [Active]; furosemide 80 mg Oral tab 1 tab once daily [Active]; - PMHx: 15:18 Gastroparesis; GI Bleed; Hypertension; Lung Cancer; neuropathy; iw - PSHx: 15:18 "Urine flow restriction repair"; Heart stents; Hernia repair; 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 - Social history:: Smoking status: Patient/guardian denies using tobacco, the patient reports quitting approximately 30 years ago. ROS: 15:45 Constitutional: Positive for poor PO intake, Negative for body aches, chills, fever. cp 15:45 Eyes: Negative for injury, pain, redness, and discharge. cp 15:45 ENT: Negative for ear pain, sore throat, difficulty swallowing, difficulty handling secretions. 15:45 Cardiovascular: Negative for chest pain, edema, palpitations. 15:45 Respiratory: Negative for cough, shortness of breath, wheezing. 15:45 Abdomen/GI: Positive for abdominal pain, nausea, vomiting, and diarrhea, anorexia, Negative for constipation, black/tarry stool, rectal bleeding. 15:45 Neuro: Positive for syncope, weakness, Negative for altered mental status, headache. 15:45 All other systems are negative. Exam: 15:50 Constitutional: The patient appears in no acute distress, alert, awake, cp non-diaphoretic, non-toxic, well developed, frail. 15:50 Head/Face: Normocephalic, atraumatic. cp 15:50 Eyes: Periorbital structures: appear normal, Pupils: equal, round, and reactive to light and accomodation, Extraocular movements: intact throughout, Conjunctiva: normal, no exudate, no injection, Sclera: no appreciated abnormality, Lids and lashes: appear normal, bilaterally. 15:50 ENT: External ear(s): are unremarkable, Nose: is normal, Mouth: Lips: dry, Oral mucosa: dry, Posterior pharynx: Airway: no evidence of obstruction, patent. 15:50 Neck: ROM/movement: is normal, is supple, without pain, no range of motions limitations, no meningismus. 15:50 Chest/axilla: Inspection: normal, Palpation: is normal, no crepitus, no tenderness. 15:50 Cardiovascular: Rate: normal, Rhythm: regular, Edema: is not appreciated. 15:50 Respiratory: the patient does not display signs of respiratory distress, Respirations: normal, no use of accessory muscles, no retractions, labored breathing, is not present, Breath sounds: are clear throughout, no decreased breath sounds, no stridor, no wheezing. 15:50 Abdomen/GI: Inspection: abdomen appears normal, Bowel sounds: active, all quadrants, Palpation: soft, in all quadrants, severe abdominal tenderness, in the right upper quadrant and left upper quadrant, rebound tenderness, is not appreciated, voluntary guarding, is elicited in the right upper quadrant and left upper quadrant. 15:50 Back: pain, is absent, ROM is normal. 15:50 Neuro: Orientation: to person, place \\T\\ time. Mentation: able to follow commands, slow to respond, Motor: moves all fours, general weakness with no focal deficits. 16:30 ECG was reviewed by the Attending Physician. cp Vital Signs: 15:18 BP 125 / 44; Pulse 79; Resp 16; Temp 97.6(TE); Pulse Ox 98% on R/A; Weight 81.65 kg; iw Height 6 ft. 2 in. (187.96 cm); Pain 10/10; 16:11 BP 119 / 60; Pulse 69; Resp 14 S; Pulse Ox 99% on R/A; aa5 19:30 BP 111 / 80; Pulse 54; Resp 19; Temp 98; Pulse Ox 99% ; Pain 5/10; rr5 20:30 BP 113 / 75; Pulse 59; Resp 16; Pulse Ox 98% ; rr5 21:30 BP 105 / 60; Pulse 55; Resp 15; Pulse Ox 97% ; rr5 15:18 Body Mass Index 23.11 (81.65 kg, 187.96 cm) iw MDM: 16:14 Patient medically screened. cp 16:30 Differential diagnosis: bowel obstruction, gastritis, GI Bleed, pancreatitis, Peptic cp Ulcer Disease, Perf. Duodenal Ulcer, Perf. Gastric Ulcer, Ureterolithiasis, urinary tract infection, dehydration, kidney failure. 18:25 Data reviewed: vital signs, nurses notes, lab test result(s), EKG, radiologic studies, cp CT scan, plain films. 18:25 Test interpretation: by ED physician or midlevel provider: ECG, plain radiologic cp studies. Response to treatment: the patient's symptoms have mildly improved after treatment. Physician consultation: Atilio Krishnan JOE was called at 18:20, was contacted at 18:20, regarding admission, to the telemetry unit. patient's condition. 01/06 15:27 Order name: Basic Metabolic Panel; Complete Time: 16:20 01/06 16:23 Interpretation: Normal except: K 3.0; CL 108; CO2 18; GLUC 129; BUN 80; CRE 3.48; GFR cp 17; CA 8.3. 01/06 15:27 Order name: CBC with Diff; Complete Time: 16:20 01/06 16:23 Interpretation: Normal except: WBC 12.40; RBC 4.18; HGB 11.7; HCT 35.6; MCV 85.2; JAQUI% cp 81.7; LYM% 12.0; NEUT A 10.1. 01/06 15:27 Order name: Hepatic Function; Complete Time: 16:20 01/06 17:40 Interpretation: Normal except: AST 9; ALT 10; ALK 129; GLOB 3.7; A/G 0.9. 01/06 15:27 Order name: Lipase; Complete Time: 16:20 01/06 16:27 Order name: Magnesium; Complete Time: 18:15 01/06 16:27 Order name: Urine Microscopic Only 01/06 16:27 Order name: Troponin I; Complete Time: 18:15 01/06 16:27 Order name: PT-INR; Complete Time: 18:15 01/06 16:27 Order name: Procalcitonin 01/06 16:27 Order name: Lactate; Complete Time: 18:15 01/06 16:27 Order name: Blood Culture Adult (2) 01/06 18:32 Order name: COVID-19 : Document "Date of Symptom Onset" if Symptomatic. 01/06 18:33 Order name: CORONAVIRUS [facility] 01/06 21:00 Order name: SARS-COV-2 RT PCR [facility] 01/06 16:23 Order name: XRAY Chest (1 view); Complete Time: 17:39 01/06 16:27 Order name: CT Head Brain wo Cont; Complete Time: 17:39 01/06 16:27 Order name: CT Abd/Pelvis - Without Contrast; Complete Time: 17:39 01/06 23:32 Order name: Glucose, Ancillary Testing EDMS 01/07 05:12 Order name: CBC with Automated Diff EDMS 01/07 05:30 Order name: Basic Metabolic Panel EDMS 01/07 05:31 Order name: Lipid Profile EDMS 01/07 05:31 Order name: T4 Free EDMS 01/07 05:31 Order name: Magnesium EDMS 01/07 05:31 Order name: Thyroid Stimulating Hormone EDMS 01/07 06:31 Order name: Phosphorus EDMS 01/06 15:27 Order name: IV Saline Lock; Complete Time: 15:38 iw 01/06 15:27 Order name: Labs collected and sent; Complete Time: 15:39 iw 01/06 16:23 Order name: EKG; Complete Time: 16:23 cp 01/06 16:23 Order name: EKG - Nurse/Tech; Complete Time: 16:40 cp EC:30 Rate is 59 beats/min. Rhythm is regular. OR interval is prolonged at 244 msec. QRS cp interval is prolonged at 116 msec. QT interval is prolonged at 518 msec. Interpreted by me. Reviewed by me. Administered Medications: 16:35 Drug: NS 0.9% 500 ml Route: IV; Rate: bolus; Site: left antecubital; dm14 17:35 Follow up: IV Status: Completed infusion; IV Intake: 500ml jl7 16:40 Drug: ProTONIX 40 mg Route: IVP; Site: left antecubital; dm14 17:00 Follow up: Response: No adverse reaction jl7 17:13 Drug: Zofran (Ondansetron) 4 mg Route: IVP; Site: left antecubital; dm14 17:45 Follow up: Response: No adverse reaction; Nausea is decreased jl7 17:35 Drug: fentaNYL (PF) 25 mcg Route: IVP; Site: left antecubital; dm14 18:00 Follow up: Response: No adverse reaction; Pain is unchanged, physician notified jl7 18:35 Drug: morphine 2 mg Route: IVP; Site: left antecubital; dm14 18:50 Follow up: Response: No adverse reaction; Pain is decreased jl7 18:35 Drug: NS 0.9% 500 ml Route: IV; Rate: bolus; Site: left antecubital; dm14 19:47 Follow up: Response: No adverse reaction; IV Status: Completed infusion rr5 18:45 Drug: Potassium Chloride 20 mEq Route: IV; Rate: calculated rate; Site: right dm14 antecubital; 20:37 Follow up: Response: No adverse reaction; IV Status: Completed infusion; IV Intake: rr5 100ml 18:45 Drug: Magnesium Sulfate 1 grams Route: IVPB; Infused Over: 1 hrs; Site: left dm14 antecubital; 19:45 Follow up: Response: No adverse reaction; IV Status: Completed infusion; IV Intake: rr5 100ml 18:50 Drug: Cipro 200 mg Volume: 100 ml; Route: IVPB; Infused Over: 60 mins; Site: right hand;dm14 19:55 Follow up: Response: No adverse reaction; IV Status: Completed infusion; IV Intake: rr5 100ml 19:40 Drug: morphine 2 mg {Note: rass 0.} Route: IVP; Site: left antecubital; rr5 20:40 Follow up: Response: No adverse reaction; Pain is decreased; RASS: Alert and Calm (0) rr5 19:46 Drug: NS 0.45 % 1000 ml Route: IV; Rate: 100 ml/hr; Site: left antecubital; rr5 23:00 Follow up: Response: No adverse reaction; IV Status: Infusion continued upon admission; rr5 IV Intake: 300ml 20:36 Drug: metroNIDAZOLE 500 mg Volume: 100 ml; Route: IVPB; Infused Over: 30 mins; Site: rr5 left antecubital; 21:05 Follow up: Response: No adverse reaction; IV Status: Completed infusion; IV Intake: rr5 100ml Disposition: 01/06/21 18:26 Hospitalization ordered by [facility] for Inpatient Admission. Preliminary diagnosis are Unspecified kidney failure, Dehydration, Weakness, Nausea and vomiting, Diarrhea, unspecified. - Bed requested for Telemetry/MedSurg (Inpatient). - Status is Inpatient Admission. jl7 - Condition is Stable. - Problem is new. - Symptoms have improved. Addendum: 01/09/2021 05:59 Co-signature as Attending Physician, Rodney Garcia MD I agree with the assessment and k dr plan of care. Signatures: Dispatcher [employer] EDAR Rodney Garcia MD MD kdr Williams, Irene, RN RN Atilio Bateman, JASSI-C BAR MACHINE OPERATOR PRODUCTION-Cla1 Evaristo Booth PA PA cp Gabrielle Cardenas, RN RN cg Luciano Arias, RN RN jl7 Emy Nina Babar Hanson, RN RN rr5 Radha Riggins RN RN dm14 Corrections: (The following items were deleted from the chart) 01/06 16:23 16:20 Normal except: K 3.0; CL 108; CO2 18; GLUC 129; BUN 80; CRE 3.48; GFR 17. cp cp 19:48 18:26 Hospitalization Ordered by Chad Navas DO for Inpatient Admission. Preliminary cp diagnosis is Unspecified kidney failure; Dehydration; Weakness; Nausea and vomiting; Diarrhea, unspecified. Bed requested for Telemetry/MedSurg (Inpatient). Status is Inpatient Admission. Condition is Stable. Problem is new. Symptoms have improved. 21:31 19:48 01/06/2021 18:26 Hospitalization Ordered by [facility] MD for Inpatient cg Admission. Preliminary diagnosis is Unspecified kidney failure; Dehydration; Weakness; Nausea and vomiting; Diarrhea, unspecified. Bed requested for Telemetry/MedSurg (Inpatient). Status is Inpatient Admission. Condition is Stable. Problem is new. Symptoms have improved. 21:32 21:31 01/06/2021 18:26 Hospitalization Ordered by [facility] Brothers MD for Inpatient cg Admission. Preliminary diagnosis is Unspecified kidney failure; Dehydration; Weakness; Nausea and vomiting; Diarrhea, unspecified. Bed requested for Telemetry/MedSurg (Inpatient). Status is Inpatient Admission. Condition is Stable. Problem is new. Symptoms have improved. 01/07 00:58 01/06 21:32 01/06/2021 18:26 Hospitalization Ordered by [facility] MD for Inpatient cg Admission. Preliminary diagnosis is Unspecified kidney failure; Dehydration; Weakness; Nausea and vomiting; Diarrhea, unspecified. Bed requested for Telemetry/MedSurg (Inpatient). Status is Inpatient Admission. Condition is Stable. Problem is new. Symptoms have improved. 01/07 08:00 00:58 01/06/2021 18:26 Hospitalization Ordered by [facility] MD for Inpatient eb Admission. Preliminary diagnosis is Unspecified kidney failure; Dehydration; Weakness; Nausea and vomiting; Diarrhea, unspecified. Bed requested for [facility] ER HOLD. Status is Inpatient Admission. Condition is Stable. Problem is new. Symptoms have improved. cg 08:23 08:00 01/06/2021 18:26 Hospitalization Ordered by [facility] MD for Inpatient jl7 Admission. Preliminary diagnosis is Unspecified kidney failure; Dehydration; Weakness; Nausea and vomiting; Diarrhea, unspecified. Bed requested for Telemetry/MedSurg (Inpatient). Status is Inpatient Admission. Condition is Stable. Problem is new. Symptoms have improved. eb
--- NOTE | 2021-01-06 18:26 | ER ---
Nurse's Notes [facility] Name: Tomer Mckeon Age: 80 yrs Sex: Male : 1940 Arrival Date: 01/06/2021 Time: 14:53 Bed 6 Private MD: Diagnosis: Unspecified kidney failure;Dehydration;Weakness;Nausea and vomiting;Diarrhea, unspecified Presentation: 01/06 15:16 Chief complaint: Spouse and/or significant other states: pt has been weak X 5 days, iw vomiting X 2days , diarrhea , has hx of ulcers. Coronavirus screen:. Ebola Screen: Patient negative for fever greater than or equal to 101.5 degrees Fahrenheit, and additional compatible Ebola Virus Disease symptoms Patient denies exposure to infectious person. Patient denies travel to an Ebola-affected area in the 21 days before illness onset. No symptoms or risks identified at this time. Risk Assessment: Do you want to hurt yourself or someone else? Patient reports no desire to harm self or others. Onset of symptoms was January 01, 2021. 15:16 Method Of Arrival: Wheelchair iw 15:26 Initial Sepsis Screen: Does the patient meet any 2 criteria? No. Patient's initial iw sepsis screen is negative. Does the patient have a suspected source of infection? No. Patient's initial sepsis screen is negative. 15:26 Acuity: PHUONG 3 iw 15:38 Acuity: PHUONG 2 iw Historical: - Allergies: 15:18 HYDRALAZINE; iw - Home Meds: 15:25 Eliquis 5 mg oral tab 1 tab 2 times per day [Active]; Lipitor 40 mg Oral tab 1 tab once iw daily [Active]; finasteride 5 mg oral tab once daily [Active]; folic acid 400 mcg Oral tab 1 tab once daily [Active]; gabapentin 600 mg oral tab 1 tab 3 times per day [Active]; losartan 100 mg oral tab 1 tab once daily [Active]; metoprolol tartrate 12.5 mg Oral tab 1 tab 2 times per day [Active]; sucralfate 1 gram Oral tab three times a day [Active]; clonidine HCl 0.1 mg Oral tab as needed [Active]; retcrit as needed [Active]; nitroglycerin 0.4 mg SL subl 1 tab every 5 minutes [Active]; hydrocodone-acetaminophen 7.5-325 mg Oral tab 1 tab every 4-6 hours [Active]; trazodone 100 mg Oral tab nightly [Active]; meclizine 12.5 mg Oral tab as needed [Active]; azelastine 0.15 % (205.5 mcg) nasal spry 1 spray once daily [Active]; pantoprazole 40 mg oral TbEC 1 tab once daily [Active]; furosemide 80 mg Oral tab 1 tab once daily [Active]; - PMHx: 15:18 Gastroparesis; GI Bleed; Hypertension; Lung Cancer; neuropathy; iw - PSHx: 15:18 "Urine flow restriction repair"; Heart stents; Hernia repair; 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 - Social history:: Smoking status: Patient/guardian denies using tobacco, the patient reports quitting approximately 30 years ago. Screenin:50 Abuse screen: Denies threats or abuse. Denies injuries from another. dm14 17:50 Nutritional screening: Pt hasn't been eating well for a couple of months as stated by dm14 his . Has chronic diarrhea and has has vomiting on and off since yesterday.. Tuberculosis screening: No symptoms or risk factors identified. Fall Risk None identified. Assessment: 15:39 General: Appears uncomfortable, ill, Behavior is cooperative. Pain: Complains of pain iw in abdomen Pain currently is 10 out of 10 on a pain scale. GI: Abdomen is non-distended, Pt is actively vomiting bile. Derm: Skin is normal. 16:11 Reassessment: [place] pt's scream from the ER lobby "help me, help me!!!". Pt aa5 sitting in wheelchair, unresponsive, pt unable to follow commands, respirations shallow, lasted approximately 30 seconds, pt was taken to exam room via wheelchair, and pt now awake and A\\T\\O x 4, pt reports generalized weakness. Current BP 119/60, HR 69, O2 sat 99% RA.. 17:16 Neuro: No deficits noted. Respiratory:. GI: Reports lower abdominal pain, diarrhea, dm14 nausea, Pain is 10 out of 10 on a pain scale. vomiting. 17:16 Reassessment: Pt lying very still. States pain 10/10. at bedside. To radiology for dm14 CT. 17:50 GI: Abdomen is tender to palpation X 4 quads. dm14 19:30 General: Appears in no apparent distress. uncomfortable, Behavior is calm, cooperative, rr5 appropriate for age. Neuro: Level of Consciousness is awake, alert, Oriented to person, place, time, Reports weakness. Cardiovascular: Capillary refill < 3 seconds Patient's skin is warm and dry. Respiratory: Airway is patent Respiratory effort is even, unlabored, Respiratory pattern is regular, symmetrical. 19:30 GI: Abdomen is non-distended, Reports lower abdominal pain, diarrhea, nausea, Pain is 5 rr5 out of 10 on a pain scale. vomiting. : No signs and/or symptoms were reported regarding the genitourinary system. EENT: No signs and/or symptoms were reported regarding the EENT system. Derm: Skin is fragile, is thin, Skin temperature is warm. Musculoskeletal: Capillary refill < 3 seconds. 20:37 Reassessment: Patient appears in no apparent distress at this time. Patient is alert, rr5 oriented x 3, equal unlabored respirations, skin warm/dry/pink. Patient states symptoms have improved. Vital Signs: 15:18 BP 125 / 44; Pulse 79; Resp 16; Temp 97.6(TE); Pulse Ox 98% on R/A; Weight 81.65 kg; iw Height 6 ft. 2 in. (187.96 cm); Pain 10/10; 16:11 BP 119 / 60; Pulse 69; Resp 14 S; Pulse Ox 99% on R/A; aa5 19:30 BP 111 / 80; Pulse 54; Resp 19; Temp 98; Pulse Ox 99% ; Pain 5/10; rr5 20:30 BP 113 / 75; Pulse 59; Resp 16; Pulse Ox 98% ; rr5 21:30 BP 105 / 60; Pulse 55; Resp 15; Pulse Ox 97% ; rr5 15:18 Body Mass Index 23.11 (81.65 kg, 187.96 cm) iw ED Course: 14:53 Patient arrived in ED. ag5 15:26 Triage completed. iw 15:39 Initial lab(s) drawn, by me, sent to lab. Inserted saline lock: 20 gauge in left iw antecubital area, using aseptic technique. Blood collected. 16:14 [facility] cp 16:14 Rodney Garcia MD is Attending Physician. cp 16:29 Radha Riggins, JOY is Primary Nurse. dm14 16:54 CT Head Brain wo Cont In Process Unspecified. EDMS 16:54 CT Abd/Pelvis - Without Contrast In Process Unspecified. EDMS 17:05 XRAY Chest (1 view) In Process Unspecified. EDMS 17:50 No provider procedures requiring assistance completed. Inserted saline lock:. dm14 17:50 Patient has correct armband on for positive identification. Bed in low position. Side dm14 rails up X 1. Adult w/ patient. 18:24 Chad Navas DO is Hospitalizing Provider. cp 19:30 Arm band placed on right wrist. rr5 19:48 Hospitalizing Provider role handed off by Chad Navas DO cp 19:48 Babar Brothers MD is Hospitalizing Provider. cp 23:00 Patient admitted, IV remains in place. intact, No redness/swelling at site. rr5 Administered Medications: 16:35 Drug: NS 0.9% 500 ml Route: IV; Rate: bolus; Site: left antecubital; dm14 17:35 Follow up: IV Status: Completed infusion; IV Intake: 500ml jl7 16:40 Drug: ProTONIX 40 mg Route: IVP; Site: left antecubital; dm14 17:00 Follow up: Response: No adverse reaction jl7 17:13 Drug: Zofran (Ondansetron) 4 mg Route: IVP; Site: left antecubital; dm14 17:45 Follow up: Response: No adverse reaction; Nausea is decreased jl7 17:35 Drug: fentaNYL (PF) 25 mcg Route: IVP; Site: left antecubital; dm14 18:00 Follow up: Response: No adverse reaction; Pain is unchanged, physician notified jl7 18:35 Drug: morphine 2 mg Route: IVP; Site: left antecubital; dm14 18:50 Follow up: Response: No adverse reaction; Pain is decreased jl7 18:35 Drug: NS 0.9% 500 ml Route: IV; Rate: bolus; Site: left antecubital; dm14 19:47 Follow up: Response: No adverse reaction; IV Status: Completed infusion rr5 18:45 Drug: Potassium Chloride 20 mEq Route: IV; Rate: calculated rate; Site: right dm14 antecubital; 20:37 Follow up: Response: No adverse reaction; IV Status: Completed infusion; IV Intake: rr5 100ml 18:45 Drug: Magnesium Sulfate 1 grams Route: IVPB; Infused Over: 1 hrs; Site: left dm14 antecubital; 19:45 Follow up: Response: No adverse reaction; IV Status: Completed infusion; IV Intake: rr5 100ml 18:50 Drug: Cipro 200 mg Volume: 100 ml; Route: IVPB; Infused Over: 60 mins; Site: right hand;dm14 19:55 Follow up: Response: No adverse reaction; IV Status: Completed infusion; IV Intake: rr5 100ml 19:40 Drug: morphine 2 mg {Note: rass 0.} Route: IVP; Site: left antecubital; rr5 20:40 Follow up: Response: No adverse reaction; Pain is decreased; RASS: Alert and Calm (0) rr5 19:46 Drug: NS 0.45 % 1000 ml Route: IV; Rate: 100 ml/hr; Site: left antecubital; rr5 23:00 Follow up: Response: No adverse reaction; IV Status: Infusion continued upon admission; rr5 IV Intake: 300ml 20:36 Drug: metroNIDAZOLE 500 mg Volume: 100 ml; Route: IVPB; Infused Over: 30 mins; Site: rr5 left antecubital; 21:05 Follow up: Response: No adverse reaction; IV Status: Completed infusion; IV Intake: rr5 100ml Intake: 17:35 IV: 500ml; Total: 500ml. jl7 19:45 IV: 100ml; Total: 600ml. rr5 19:55 IV: 100ml; Total: 700ml. rr5 20:37 IV: 100ml; Total: 800ml. rr5 21:05 IV: 100ml; Total: 900ml. rr5 23:00 IV: 300ml; Total: 1200ml. rr5 Outcome: 18:26 Decision to Hospitalize by Provider. cp 23:00 Admitted to ER Hold. Please see [facility] for further documentation. rr5 23:00 Condition: stable 23:00 Instructed on the need for admit. 02/20 08:23 Patient left the ED. jl7 Signatures: Dispatcher [employer] EDMS Ivonne Mitchell, RN RN iw Joleen Mayo RN RN aa5 Evaristo Booth PA PA cp Leal, Jahala, RN RN jl7 Babar Hanson, RN RN rr5 Ran Lackey ag5 Radha Riggins RN RN dm14 Corrections: (The following items were deleted from the chart) 01/06 15:20 15:18 BP 116 / 82; Pulse 79bpm; Resp 16bpm; Pulse Ox 98% RA; Temp 98.7F; 81.65 kg; iw Height 6 ft. 2 in.; BMI: 23.1; Pain 10/10; iw 15:26 15:18 Pulse 79bpm; Resp 16bpm; Pulse Ox 98% RA; Temp 97.6F Temporal; 81.65 kg; Height 6 iw ft. 2 in.; BMI: 23.1; Pain 10/10; iw 16:36 16:11 Reassessment: [place] pt's scream from the ER lobby "help me, help me!!!". Pt aa5 sitting in wheelchair, unresponsive, pt unable to follow commands, respirations shallow, lasted approximately 30 seconds, pt was taken to exam room via wheelchair, and pt now awake and A\\T\\O x 4, pt reports generalized weakness. Current BP 119/60, HR 69, O2 sat 99% RA.. jl7
[2021-01-06] MEDS ORDERED: MORPHINE 2 MG/ML SYR ONE ×2 (18:44→19:47)
[2021-01-06] MEDS ORDERED: MAGNESIUM SULFATE 1 gm IVPB 0 GM/0 ML BAG IV ONE (18:45)
[2021-01-06] MEDS ORDERED: METRONIDAZOLE 500mg IVPB 500 MG/100 ML BAG IV ONE (18:47)
[2021-01-06] MEDS ORDERED: CIPROFLOXACIN 400mg IV 400 MG/200 ML BAG IV ONE (18:56)
[2021-01-06] MEDS ORDERED: KCL 20 MEQ/100 mL IVPB 20 MEQ/100 ML BAG IV ONE (18:56)
[2021-01-06] MEDS ORDERED: Magnesium Sulfate 2gm IVPB 2 G/50 ML BAG IV ONE (18:57)
[2021-01-06] MEDS ORDERED: NACHLORIDE 0.45% 1,000 ML IV ONE (19:47)
--- NOTE | 2021-01-06 21:13 | P.HP ---
Certification for Inpatient Patient admitted to: Inpatient With expected LOS: >2 Midnights Patient will require the following post-hospital care: None Practitioner: I am a practitioner with admitting privileges, knowledge of patient current condition, hospital course, and medical plan of care. Services: Services provided to patient in accordance with Admission requirements found in Title 42 Section 412.3 of the Code of Federal Regulations <Atilio Krishnan - Last Filed: 01/06/21 21:07> Patient History Date of Service: 01/06/21 Reason for admission: Acute renal failure History of Present Illness: 80-year-old male with history of atrial fibrillation on chronic anticoagulation, gastroparesis, anemia, history of lung cancer under surveillance, short gut syndrome presents emergency department for abdominal pain, diarrhea. states that this typically happens around once per year, patient had similar admission previously. Patient currently in acute renal failure %period% creatinine 3.48 GFR 17 most recent creatinine prior to this was in August 2020 with creatinine 1.73. Previous admission and April 2020 with creatinine of 3.99 that responded well to hydration. Patient also noted to be hypo kalemia with potassium 3.0 hypomagnesemia with magnesium 1.7 white blood cell count 12.4 pro calcitonin mildly elevated 0.11. CT abdomen pelvis demonstrates fluid within the nondilated colon indicating diarrhea. Patient also a history of intra-abdominal abscess, CT states minimal soft tissue the anterior lower right pelvis has mostly resolved since prior exam and not considered significant at this time. states patient was told that he had that arteries going to his gut but the surgeon told her that he would not likely survive surgery so it was not an option for him. ED provider wishes to admit patient for further evaluation and management. - Past Medical/Surgical History Diabetic: No -: Gastric ulcers -: Anemia -: History of lung cancer currently under surveillance -: Neuropathy -: Hypertension -: Gastroparesis -: Atrial fibrillation on chronic anticoagulation therapy -: Short-gut syndrome -: bilateral ingrown toe nails operated an fixed -: scar on right arm removed due to begnine finding -: right partial toe amputation -: "urine flow restriction repair" prostate Psychosocial/ Personal History: Patient lives at home with his - Family History Family History: Reviewed- Non-Contributory - Social History Smoking Status: Never smoker Alcohol use: No CD- Drugs: No Caffeine use: No Place of Residence: Home <Atilio Krishnan - Last Filed: 01/06/21 21:07> Date of Service: 01/14/21 <Babar Brothers - Last Filed: 01/14/21 14:59> Allergies HYDRALAZINE Allergy (Uncoded 06/02/18 05:26) Unknown Home Medications: Atorvastatin Calcium [Lipitor] 40 mg PO BEDTIME 04/27/20 Azelastine [Astelin 137MCG/Metered [place]*] 1 spray IH DAILY 04/27/20 Finasteride 5 mg PO BEDTIME 04/27/20 Folic Acid 400 mg PO BID 04/27/20 Gabapentin 600 mg PO BID 04/27/20 Hydrocodone Bit/Acetaminophen [Hydrocodon-Acetaminoph 7.5-325] 1 tab PO Q4H PRN 04/27/20 Metoprolol Tartrate 12.5 mg PO BID 04/27/20 Nitroglycerin [Nitrostat*] 0.4 mg SL SEECOM 04/27/20 Sucralfate [Carafate*] 1 gm PO TID 04/27/20 Epoetin Shayne-Epbx [Retacrit] 20 unit SQ DAILY 01/08/21 Furosemide [Lasix*] 80 mg PO DAILY 01/08/21 Losartan Potassium [Cozaar] 100 mg PO DAILY 01/08/21 Meclizine HCl [Antivert*] 12.5 mg PO BID PRN 01/08/21 Trazodone HCl 100 mg PO BEDTIME 01/08/21 cloNIDine HCL [Clonidine HCl] 0.1 mg PO Q4HR PRN 01/08/21 Pantoprazole [Protonix Tab*] 40 mg PO BID #60 tab 01/12/21 Sodium Bicarbonate 1,300 mg PO BID #120 tablet 01/12/21 Review of Systems 10-point ROS is otherwise unremarkable Gastrointestinal: Nausea, Vomiting, Abdominal Pain, Diarrhea <Atilio Krishnan - Last Filed: 01/06/21 21:07> Physical Examination - Physical Exam General: Alert, In no apparent distress, Oriented x3 HEENT: Atraumatic, Other (Mucous membranes dry) Neck: Supple Respiratory: Clear to auscultation bilaterally, Normal air movement Cardiovascular: Normal S1 S2, Irregular heart rate/rhythm (AFib rate controlled) Capillary refill: <2 Seconds Gastrointestinal: Hypoactive, Tenderness (Generalized abdominal tenderness) Musculoskeletal: No contractures, No erythema, No tenderness Integumentary: No significant lesion, No tenderness/swelling, No erythema Neurological: Normal speech, Normal tone, Sensation intact - Studies Laboratory Data (last 24 hrs) 01/06/21 17:43: PT 12.1, INR 1.05 01/06/21 17:43: Magnesium 1.7 L, Troponin I 0.02 01/06/21 15:38: WBC 12.40 H, Hgb 11.7 L, Hct 35.6 L, Plt Count 302 01/06/21 15:38: Sodium 141, Potassium 3.0 L, BUN 80 H, Creatinine 3.48 H, Glucose 129 H, Total Bilirubin 0.4, AST 9 L, ALT 10 L, Alkaline Phosphatase 129 H, Lipase 115 <Atilio Krishnan - Last Filed: 01/06/21 21:07> Assessment and Plan - Plan Assessment Diarrhea secondary to suspected Acute enterocolitis Acute renal failure with metabolic acidosis Abdominal pain likely secondary to enterocolitis/gastroparesis Hypokalemia Hypomagnesemia Plan Diarrhea secondary to suspected Acute enterocolitis: White blood cell count mildly elevated pro calcitonin mildly elevated. Continue with Rocephin/Flagyl at this time. Stool studies including C. diff ordered. Patient previously positive for C. diff antigen with negative for toxin approximately 6 months prior. At that time. Infectious Disease did not recommend further treatment. NPO at this time due to significant abdominal pain. Advance diet as tolerated. Acute renal failure with metabolic acidosis : Continue with IV hydration, nephrology consult in place. Abdominal pain likely secondary to enterocolitis/gastroparesis: P.r.n. pain and nausea medications. NPO at this time, advance diet as tolerated. Likely multifactorial. states patient was told that he had bad circulation to gut but was not a candidate for surgery, also history of gastroparesis. Hypokalemia: Electrolyte protocol Hypomagnesemia: Electrolyte protocol Discharge Plan: Home Plan to discharge in: Greater than 2 days - Advance Directives Does patient have a Living Will: No Does patient have a Durable POA for Healthcare: Yes - Code Status/Comfort Care Code Status Assessed: Yes (DNR) Critical Care: No Time Spent Managing Pts Care (In Minutes): 55 <Atilio Krishnan - Last Filed: 01/06/21 21:07> - Plan Plan of care reviewed and agree as noted above by Atilio Krishnan. <Babar Brothers - Last Filed: 01/14/21 14:59>
[2021-01-06] MEDS: APIXABAN 2.5 MG TABLET PO SCH (21:50)
[2021-01-06] MEDS: ATORVASTATIN 40 MG TAB PO SCH (21:50)
[2021-01-06] MEDS ORDERED: ACETAMINOPHEN 500 MG TAB PO PRN (21:50)
[2021-01-06] MEDS ORDERED: SODIUM CHLORIDE 0.9% 10ML INJ IV PRN (21:50)
[2021-01-06] MEDS: NACHLORIDE 0.45% 1,000 ML IV SCH (21:50)
[2021-01-06] MEDS ORDERED: ONDANSETRON 4 MG/2 ML VIAL IV PRN (21:50)
[2021-01-06] MEDS ORDERED: APIXABAN 5 MG TABLET ONE (22:11)
[2021-01-06] MEDS ORDERED: ATORVASTATIN 20 MG TAB ONE (22:11)
[2021-01-06] MEDS: METOCLOPRAMIDE 10 MG/2mL INJ IV PRN (22:27)
[2021-01-06] MEDS ORDERED: NA CHLORIDE 0.9% 100 ML ONE (22:48)
[2021-01-06] MEDS ORDERED: METOCLOPRAMIDE 10 MG/2mL INJ ONE (22:48)
[2021-01-07] MEDS ORDERED: FENTANYL CITR 100 MCG/2 ML ONE ×2 (00:39→08:02)
[2021-01-07] MEDS: METRONIDAZOLE 500mg IVPB 500 MG/100 ML BAG IV SCH ×3 (02:04→17:25)
[2021-01-07] MEDS ORDERED: METRONIDAZOLE 500mg IVPB 0 MG/0 ML BAG IV ONE (02:13)
[2021-01-07] MEDS: FENTANYL CITR 100 MCG/2 ML IV PRN ×2 (02:15→08:00)
[2021-01-07] MEDS: TRAZODONE 50 MG TABLET PO PRN ×2 (02:32→21:28)
[2021-01-07 05:07] LABS: Absolute Lymphocytes (CBC) 0.8 K/uL (0.7-4.9); Basophils % 0.2 % (0-1.3); Hematocrit 33.9 % (39.6-49.0); MPV 7.6 fL (7.6-11.3); RBC Red Blood Cell Count 4.03 M/uL (4.33-5.43)
[2021-01-07 05:28] LABS: Magnesium 1.9 mg/dL (1.8-2.4); Thyroid Stimulating Hormone 2.14 uIU/mL (0.360-3.740)
[2021-01-07 05:30] LABS: Potassium 2.7 mmol/L (3.5-5.1)
[2021-01-07] MEDS: KCL 20 MEQ/100 mL IVPB 20 MEQ/100 ML BAG IV SCH ×5 (06:00→23:52)
[2021-01-07] MEDS: METOPROLOL TAR 25 MG TAB PO SCH ×2 (06:00→17:21)
[2021-01-07] MEDS ORDERED: METOPROLOL TAR 25 MG TAB ONE (06:19)
[2021-01-07] MEDS ORDERED: KCL 20 MEQ/100 mL IVPB 20 MEQ/100 ML BAG IV ONE ×2 (06:19→08:08)
[2021-01-07] MEDS ORDERED: NACHLORIDE 0.45% 1,000 ML IV ONE ×2 (06:22→21:38)
[2021-01-07 06:31] LABS: Phosphorus 7.5 mg/dL (2.5-4.9)
[2021-01-07] MEDS: NACHLORIDE 0.45% 1,000 ML IV SCH ×3 (06:55→21:29)
[2021-01-07] MEDS ORDERED: METOCLOPRAMIDE 10 MG/2mL INJ ONE (08:01)
[2021-01-07] MEDS ORDERED: APIXABAN 5 MG TABLET ONE (08:02)
[2021-01-07] MEDS ORDERED: PANTOPRAZOLE 40 MG INJ ONE (08:02)
[2021-01-07] MEDS ORDERED: CEFTRIAXONE/SWI 1gm 0 GM/0 ML SYR ONE (08:03)
[2021-01-07] MEDS ORDERED: METRONIDAZOLE 500mg IVPB 500 MG/100 ML BAG IV ONE (08:03)
[2021-01-07] MEDS: METOCLOPRAMIDE 10 MG/2mL INJ IV PRN ×2 (08:04→17:22)
[2021-01-07] MEDS ORDERED: PANTOPRAZOLE 40 MG INJ IVP SCH (09:00)
[2021-01-07] MEDS ORDERED: CEFTRIAXONE 1 GM/NS 50 ML 1 GM/50 ML BAG IV SCH (09:00)
[2021-01-07 09:31] VITALS: BMI 21.4
[2021-01-07] MEDS: CEFTRIAXONE/SWI 1gm 1 GM/10 ML SYR IV SCH (10:32)
[2021-01-07 11:21] LABS: Urine Appearance CLEAR; Urine Bilirubin NEGATIVE (NEG); Urine Blood 1+ (NEG); Urine Color YELLOW; Urine Glucose NEGATIVE (NEG); Urine Protein TRACE (NEG); Urine Specific Gravity 1.015 (1.005-1.030); Urine Urobilinogen 0.2 mg/dL (0.2-1.0); Urine pH 5.5 (5.0-7.0)
[2021-01-07] MEDS: SUCRALFATE 1 GM TABLET PO SCH ×3 (11:34→21:28)
[2021-01-07] MEDS: APIXABAN 2.5 MG TABLET PO SCH ×2 (11:34→21:28)
[2021-01-07 11:44] LABS: Urine Microscopic Reflex ORDER UMIC
[2021-01-07 12:07] LABS: C.diff Antigen/Toxin Ag neg : Tox neg (NEG : NEG)
[2021-01-07 12:19] LABS: Urine Bacteria NONE SEEN /HPF (NONE SEEN); Urine RBC 20-50 /HPF (NONE SEEN)
--- NOTE | 2021-01-07 21:27 | P.PN ---
Subjective Date of Service: 01/07/21 Chief Complaint: Acute renal failure Subjective: Improving (feeling better - abdominal pain ~25-40% better but still there, only 1 episode of diarrhea so far, very watery, typically more pasty. reports h/o gastric ulcers) Review of Systems 10-point ROS is otherwise unremarkable Physical Examination - Vital Signs Temperature: 97.3 F Blood Pressure: 189/78 Pulse: 74 Respirations: 16 Pulse Ox (%): 96 - Studies Microbiology Data (last 24 hrs): 01/06/21 11:05 Stool Fecal Leukocyte Stain - Final Assessment & Plan Physician Review Additional Text: Problem List: Gen: NAD HEENT: normal conjunctiva, sclera anicteric CV: RRR, noedema Abd: soft, moderate TTP in epigastrium Ext: no rash Neuro: AAOx3 Problem List: Diarrhea secondary to suspected Acute enterocolitis Acute renal failure with metabolic acidosis Abdominal pain likely secondary to enterocolitis/gastroparesis Hypokalemia Hypomagnesemia mild leukocytosis and procal elevation, continue rocephin/flagyl stool studies ordered, 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
[2021-01-07] MEDS: ATORVASTATIN 40 MG TAB PO SCH (21:28)
[2021-01-07] MEDS: PANTOPRAZOLE 40 MG INJ IVP SCH (21:29)
[2021-01-08] MEDS: METRONIDAZOLE 500mg IVPB 500 MG/100 ML BAG IV SCH ×3 (00:22→17:45)
[2021-01-08] MEDS ORDERED: NACHLORIDE 0.45% 1,000 ML IV ONE (01:17)
[2021-01-08] MEDS: METOPROLOL TAR 25 MG TAB PO SCH ×2 (05:33→17:45)
[2021-01-08 05:55] LABS: Basophils % 0.5 % (0-1.3); Lymphocytes % 9.9 % (15.3-44.8); MPV 7.7 fL (7.6-11.3); RBC Red Blood Cell Count 3.41 M/uL (4.33-5.43)
[2021-01-08 06:14] LABS: Albumin 2.7 g/dL (3.4-5.0); Bilirubin Direct 0.1 mg/dL (0-0.2); Bilirubin Total 0.3 mg/dL (0.2-1.0); Magnesium 1.7 mg/dL (1.8-2.4); Potassium 3.2 mmol/L (3.5-5.1); Protein, Total 5.6 g/dL (6.4-8.2)
[2021-01-08] MEDS ORDERED: POTASSIUM 25 MEQ EFFERV TAB PO ONE (09:00)
[2021-01-08] MEDS: PANTOPRAZOLE 40 MG INJ IVP SCH ×2 (09:00→22:03)
[2021-01-08] MEDS ORDERED: MAGNESIUM SULFATE 1 gm IVPB 1 GM/100 ML BAG IV ONE (09:00)
[2021-01-08] MEDS: CEFTRIAXONE/SWI 1gm 1 GM/10 ML SYR IV SCH (10:08)
[2021-01-08] MEDS: SUCRALFATE 1 GM TABLET PO SCH ×4 (10:08→22:04)
[2021-01-08] MEDS: APIXABAN 2.5 MG TABLET PO SCH ×2 (10:09→22:04)
--- NOTE | 2021-01-08 11:48 | P.PN ---
Subjective Date of Service: 01/08/21 Chief Complaint: Acute renal failure Subjective: Improving (Feeling a little bit better today, pain is improved, appetite has improved, still having watery diarrhea, unchanged.) Review of Systems 10-point ROS is otherwise unremarkable Physical Examination - Vital Signs Temperature: 97.7 F Blood Pressure: 170/71 Pulse: 55 Respirations: 18 Pulse Ox (%): 97 - Studies Microbiology Data (last 24 hrs): 01/06/21 11:05 Stool Fecal Leukocyte Stain - Final Assessment & Plan Physician Review Additional Text: Problem List: Gen: NAD HEENT: normal conjunctiva, sclera anicteric CV: RRR, no edema Abd: soft, moderate TTP in epigastrium, nontender everywhere else on abdomen Ext: no rash Neuro: AAOx3 Problem List: Diarrhea secondary to suspected Acute enterocolitis Acute renal failure with metabolic acidosis Abdominal pain likely secondary to enterocolitis/gastroparesis Hypokalemia Hypomagnesemia HTN Neuropathy BPH mild leukocytosis and procal elevation, continue rocephin/flagyl stool studies ordered, 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 diff negative possibly due to taking Pepto-Bismol for 3 weeks, approximately twice a day Tolerated clear liquid diet, advance to GI soft diet continue with IV hydration, mild improvement of Cr nephrology consulted replace electrolytes protonix BID, carafate ordered (on protonix daily and carafate at home) restart home medications - antihypertensives, BPH, gabapentin Dispo: anticipate dc home in ~24-48hrs Time Spent Managing Pts Care (In Minutes): 35
[2021-01-08] MEDS: NACHLORIDE 0.45% 1,000 ML IV SCH ×2 (12:18→22:09)
[2021-01-08] MEDS: LOSARTAN POTASSIUM 50 MG TABLET PO SCH (14:55)
[2021-01-08] MEDS: GABAPENTIN 300 MG CAP PO SCH ×2 (14:55→22:03)
[2021-01-08] MEDS: FOLIC ACID 1 MG TABLET PO SCH (21:00)
[2021-01-08] MEDS: FINASTERIDE 5 MG TAB PO SCH (22:04)
[2021-01-08] MEDS: TRAZODONE 50 MG TABLET PO PRN (22:04)
[2021-01-08] MEDS: ATORVASTATIN 40 MG TAB PO SCH (22:18)
[2021-01-09] MEDS: NACHLORIDE 0.45% 1,000 ML IV SCH ×4 (00:09→13:29)
[2021-01-09] MEDS: METRONIDAZOLE 500mg IVPB 500 MG/100 ML BAG IV SCH ×3 (00:43→16:55)
[2021-01-09] MEDS: METOPROLOL TAR 25 MG TAB PO SCH ×2 (05:10→17:01)
[2021-01-09 05:54] LABS: Absolute Lymphocytes (CBC) 1.1 K/uL (0.7-4.9); Basophils % 0.6 % (0-1.3); Hematocrit 26.4 % (39.6-49.0); Lymphocytes % 13.9 % (15.3-44.8); MPV 7.9 fL (7.6-11.3); RBC Red Blood Cell Count 3.12 M/uL (4.33-5.43)
[2021-01-09 06:21] LABS: Albumin 2.5 g/dL (3.4-5.0); Bilirubin Total 0.2 mg/dL (0.2-1.0); Magnesium 1.7 mg/dL (1.8-2.4); Phosphorus 2.8 mg/dL (2.5-4.9); Potassium 3.1 mmol/L (3.5-5.1); Protein, Total 5.2 g/dL (6.4-8.2)
[2021-01-09] MEDS: FOLIC ACID 1 MG TABLET PO SCH ×3 (09:00→20:43)
[2021-01-09] MEDS: GABAPENTIN 300 MG CAP PO SCH ×2 (09:14→20:45)
[2021-01-09] MEDS: LOSARTAN POTASSIUM 50 MG TABLET PO SCH (09:15)
[2021-01-09] MEDS: SUCRALFATE 1 GM TABLET PO SCH ×4 (09:15→20:43)
[2021-01-09] MEDS: APIXABAN 2.5 MG TABLET PO SCH ×2 (09:15→20:43)
[2021-01-09] MEDS: PANTOPRAZOLE 40 MG INJ IVP SCH ×2 (09:15→20:48)
[2021-01-09] MEDS: CEFTRIAXONE/SWI 1gm 1 GM/10 ML SYR IV SCH (14:05)
[2021-01-09] MEDS ORDERED: INFLUENZA VACCINE (for 3y+) 0.5 ML DOSE IMVAC ONE (15:00)
[2021-01-09] MEDS ORDERED: PNEUMOCOCCAL VACCINE 0.5 ML IMVAC ONE (15:00)
[2021-01-09] MEDS ORDERED: NACHLORIDE 0.45% 1,000 ML IV SCH (17:03)
--- NOTE | 2021-01-09 17:11 | P.PN ---
Subjective Date of Service: 01/09/21 Chief Complaint: Acute renal failure Subjective: Improving (reports abdominal pain from ribs to umbilicus has improved, still has tenderness in epigastrium which he states is more chronic. Appetite improved, continues with very watery diarrhea without improvement) Review of Systems 10-point ROS is otherwise unremarkable Physical Examination - Vital Signs Temperature: 98.5 F Blood Pressure: 164/71 Pulse: 64 Respirations: 18 Pulse Ox (%): 100 Assessment & Plan Physician Review Additional Text: Problem List: Gen: NAD HEENT: normal conjunctiva, sclera anicteric CV: RRR, no edema Abd: soft, moderate TTP in epigastrium, otherwise nontender, no rebound Ext: no rash, no edema Neuro: AAOx3 Problem List: Diarrhea secondary to suspected Acute enterocolitis Acute renal failure with metabolic acidosis Abdominal pain likely secondary to enterocolitis/gastroparesis Anemia of chronic disease Hypokalemia Hypomagnesemia HTN Neuropathy BPH mild leukocytosis and procal elevation on admission, continue rocephin/flagyl stool studies ordered, 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 diff negative possibly due to taking Pepto-Bismol for 3 weeks, approximately twice a day Tolerated gi soft, advance to regular diet continue with IV hydration, improvement of Cr, decrease to 75ml/hr awaiting nephrology consult replace electrolytes protonix BID, carafate ordered (on protonix daily and carafate at home) continue home medications - antihypertensives, BPH, gabapentin hemoccult positive, black flecks in watery stool- pt takes PO iron, and history of gastric ulcers anemia partly due to hemodilution given amount of IVF he has received, if continues to drop, will consider GI consult if available Dispo: anticipate dc home in ~24-48hrs, pending further improvement Time Spent Managing Pts Care (In Minutes): 35
--- NOTE | 2021-01-09 20:40 | P.CNS ---
Date of Consult: 01/09/21 Reason for Consult: Elevated creatinine Requesting Physician: Babar Brothers Chief Complaint: Acute renal failure History of Present Illness: 80-year-old male with past medical history of hypertension, BPH, atrial fibrillation on anticoagulation, lung cancer admitted for recurrent diarrhea weakness. Noted with CT showing dilated colon. Patient was also noted with elevated creatinine of 3.7 on admission. He has been on gentle IV fluid. He has recurrent hypokalemia worsening metabolic acidosis as well as hypomagnesemia. He is currently getting normal saline, his borderline low blood pressure has improved and are persistently elevated. He still taking losartan. His creatinine today is improved to 1.95 dates low serum bicarb and potassium now. Renal consulted for azotemia Allergies HYDRALAZINE Allergy (Uncoded 06/02/18 05:26) Unknown Home Medications: Atorvastatin Calcium [Lipitor] 40 mg PO BEDTIME 04/27/20 Azelastine [Astelin 137MCG/Metered Adell*] 1 spray IH DAILY 04/27/20 Finasteride 5 mg PO BEDTIME 04/27/20 Folic Acid 400 mg PO BID 04/27/20 Gabapentin 600 mg PO BID 04/27/20 Hydrocodone Bit/Acetaminophen [Hydrocodon-Acetaminoph 7.5-325] 1 tab PO Q4H PRN 04/27/20 Metoprolol Tartrate 12.5 mg PO BID 04/27/20 Nitroglycerin [Nitrostat*] 0.4 mg SL SEECOM 04/27/20 Pantoprazole [Protonix Tab*] 40 mg PO DAILY 04/27/20 Sucralfate [Carafate*] 1 gm PO TID 04/27/20 Apixaban [Eliquis] 5 mg PO BID 01/08/21 Epoetin Shayne-Epbx [Retacrit] 20 unit SQ DAILY 01/08/21 Furosemide [Lasix] 80 mg PO DAILY 01/08/21 Losartan Potassium [Cozaar] 100 mg PO DAILY 01/08/21 Meclizine HCl [Antivert] 12.5 mg PO BID PRN 01/08/21 Trazodone HCl 100 mg PO BEDTIME 01/08/21 cloNIDine HCL [Clonidine HCl] 0.1 mg PO Q4HR PRN 01/08/21 - Past Medical/Surgical History Diabetic: No -: Gastric ulcers -: Anemia -: History of lung cancer currently under surveillance -: Neuropathy -: Hypertension -: Gastroparesis -: Atrial fibrillation on chronic anticoagulation therapy -: Short-gut syndrome -: bilateral ingrown toe nails operated an fixed -: scar on right arm removed due to begnine finding -: right partial toe amputation -: "urine flow restriction repair" prostate Psychosocial/ Personal History: Patient lives at home with his - Social History Smoking Status: Never smoker Alcohol use: No CD- Drugs: No Caffeine use: No Place of Residence: Home Review of Systems 10-point ROS is otherwise unremarkable Physical Examination Temp Pulse Resp BP Pulse Ox 98.5 F 64 18 164/71 H 100 01/09/21 17:11 01/09/21 17:11 01/09/21 17:11 01/09/21 17:11 01/09/21 17:11 General: Alert, In no apparent distress, Oriented x3 HEENT: Atraumatic, Normocephalic, PERRLA Neck: Supple, 2+ carotid pulse no bruit, JVD not distended Respiratory: Clear to auscultation bilaterally, Normal air movement Cardiovascular: No edema, Regular rate/rhythm, Normal S1 S2 Gastrointestinal: Normal bowel sounds, Soft and benign, Non-distended Musculoskeletal: No clubbing, No swelling Neurological: Normal gait, Normal speech, Normal strength at 5/5 x4 extr External genitalia: No edema, No lesions - Problems (1) Acute anemia Current Visit: No Status: Acute (2) Acute kidney injury Current Visit: No Status: Acute (3) Enterocolitis Current Visit: No Status: Acute (4) GI bleed Current Visit: No Status: Acute Qualifiers: GI bleed type/associated pathology: melena Qualified Code(s): K92.1 - Melena (5) Hypokalemia Current Visit: No Status: Acute (6) Metabolic acidosis Current Visit: No Status: Acute Physician Review: Patient Assessed, Agree with Above Assessment and Plan Physician Review Additional Text: Acute kidney injury Hypokalemia Hypomagnesemia-repleted Persistent metabolic acidosis Acute colitis Anemia of GI bleed-trending down History of atrial fibrillation on anticoagulation Plan -creatinine improving to 1.95 -We add sodium bicarb to correct metabolic [id number] gap likely due to GI loss -replace potassium -change IV fluid from normal saline to lactated Ringer's for now -monitor H and H -hold losartan -We add amlodipine for blood pressure control
[2021-01-09] MEDS: FINASTERIDE 5 MG TAB PO SCH (20:43)
[2021-01-09] MEDS: ATORVASTATIN 40 MG TAB PO SCH (20:44)
[2021-01-09] MEDS: AMLODIPINE 10 MG TAB PO SCH (20:45)
[2021-01-09] MEDS: Ringers Lactate 1,000 ML IV SCH (20:46)
[2021-01-09] MEDS: SODIUM BICARB 325 MG TAB PO SCH (20:49)
[2021-01-10] MEDS: METRONIDAZOLE 500mg IVPB 500 MG/100 ML BAG IV SCH ×3 (00:20→17:24)
[2021-01-10] MEDS: METOPROLOL TAR 25 MG TAB PO SCH ×2 (05:27→17:24)
--- NOTE | 2021-01-10 05:54 | P.PN ---
Subjective Date of Service: 01/10/21 Chief Complaint: Acute renal failure Subjective: No new changes Physical Examination - Vital Signs Temperature: 97.8 F Blood Pressure: 162/70 Pulse: 64 Respirations: 18 Pulse Ox (%): 98 - Physical Exam General: Alert, In no apparent distress, Oriented x3 HEENT: Normocephalic, PERRLA Respiratory: Clear to auscultation bilaterally, Normal air movement Cardiovascular: No edema, Regular rate/rhythm, Normal S1 S2 Gastrointestinal: Normal bowel sounds, Soft and benign, Non-distended Neurological: Normal speech, Normal strength at 5/5 x4 extr Assessment And Plan - Current Problems (Diagnosis) (1) Acute anemia Current Visit: No Status: Acute (2) Acute kidney injury Current Visit: No Status: Acute (3) Enterocolitis Current Visit: No Status: Acute (4) GI bleed Current Visit: No Status: Acute Qualifiers: GI bleed type/associated pathology: melena Qualified Code(s): K92.1 - Melena (5) Hypokalemia Current Visit: No Status: Acute (6) Metabolic acidosis Current Visit: No Status: Acute Physician Review: Patient Assessed, Agree with Above Assessment and Plan Physician Review Additional Text: Problem List: Diarrhea secondary to suspected Acute enterocolitis Acute renal failure with metabolic acidosis Abdominal pain likely secondary to enterocolitis/gastroparesis Anemia of chronic disease Hypokalemia Hypomagnesemia HTN Neuropathy BPH PLAN - creatinine trending down , follow trend - monitor h/h -s/p IVF changed to LR , follow bicarb -replete k prn
[2021-01-10 06:04] LABS: Absolute Lymphocytes (CBC) 0.9 K/uL (0.7-4.9); Basophils % 0.5 % (0-1.3); Hematocrit 26.1 % (39.6-49.0); Lymphocytes % 13.6 % (15.3-44.8); MPV 7.4 fL (7.6-11.3); RBC Red Blood Cell Count 3.13 M/uL (4.33-5.43)
[2021-01-10 06:24] LABS: Albumin 2.4 g/dL (3.4-5.0); Bilirubin Total 0.3 mg/dL (0.2-1.0); Protein, Total 5.1 g/dL (6.4-8.2)
[2021-01-10 06:33] LABS: Magnesium 1.4 mg/dL (1.8-2.4)
[2021-01-10] MEDS: SODIUM BICARB 325 MG TAB PO SCH ×2 (08:13→20:42)
[2021-01-10] MEDS: SUCRALFATE 1 GM TABLET PO SCH ×4 (08:14→20:42)
[2021-01-10] MEDS: GABAPENTIN 300 MG CAP PO SCH ×2 (08:14→20:42)
[2021-01-10] MEDS: PANTOPRAZOLE 40 MG INJ IVP SCH ×2 (08:14→20:42)
[2021-01-10] MEDS: CEFTRIAXONE/SWI 1gm 1 GM/10 ML SYR IV SCH (08:14)
[2021-01-10] MEDS: APIXABAN 2.5 MG TABLET PO SCH ×2 (08:15→20:42)
[2021-01-10] MEDS: AMLODIPINE 10 MG TAB PO SCH (08:15)
[2021-01-10] MEDS: FOLIC ACID 1 MG TABLET PO SCH ×2 (08:15→20:43)
[2021-01-10] MEDS ORDERED: POTASSIUM CL SA 10 MEQ TAB PO ONE (09:00)
[2021-01-10] MEDS ORDERED: Magnesium Sulfate 2gm IVPB 2 G/50 ML BAG IV ONE (09:00)
[2021-01-10] MEDS: Ringers Lactate 1,000 ML IV SCH ×2 (13:42→17:00)
--- NOTE | 2021-01-10 16:00 | P.PN ---
Subjective Date of Service: 01/10/21 Chief Complaint: Acute renal failure Patient has no complain and wants to go home. His serum creatinine has trended down. Hemoglobin dropped from 11 to 9. Stool for occult blood is positive. Patient is on Eliquis. Physical Examination - Vital Signs Temperature: 98.5 F Blood Pressure: 146/68 Pulse: 64 Respirations: 19 Pulse Ox (%): 19 - Physical Exam General: Alert, In no apparent distress, Oriented x3 Neck: Supple, JVD not distended Respiratory: Clear to auscultation bilaterally, Normal air movement Cardiovascular: No edema, Normal S1 S2, Irregular heart rate/rhythm Gastrointestinal: Normal bowel sounds, Soft and benign, Non-distended Musculoskeletal: No swelling, No tenderness Integumentary: No rashes Neurological: Other (No focal motor deficit.) Assessment And Plan - Current Problems (Diagnosis) (1) Acute anemia Current Visit: No Status: Acute (2) Acute kidney injury Current Visit: No Status: Acute (3) Enterocolitis Current Visit: No Status: Acute (4) GI bleed Current Visit: No Status: Acute Qualifiers: GI bleed type/associated pathology: melena Qualified Code(s): K92.1 - Melena (5) Metabolic acidosis Current Visit: No Status: Acute (6) Hypomagnesemia Current Visit: Yes Status: Acute Physician Review Additional Text: Problem List: Diarrhea secondary to suspected Acute enterocolitis Acute renal failure with metabolic acidosis Abdominal pain likely secondary to enterocolitis/gastroparesis Anemia of chronic disease Hypokalemia Hypomagnesemia HTN Neuropathy BPH mild leukocytosis and procal elevation on admission, continue rocephin/flagyl stool studies ordered, 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 diff negative. Tolerated gi soft, advance to regular diet continue with IV hydration, improvement of Cr, decrease to 75ml/hr. Patient still with metabolic acidosis. IV fluid changed ringers lactate Nephrology input appreciated. replace electrolytes-magnesium and potassium. protonix BID, carafate ordered (on protonix daily and carafate at home). History of gastric ulcers. Patient is on iron therapy. He is on Eliquis for AFib anticoagulation. Monitor for drop in hemoglobin or active bleeding. Start Eliquis if active bleeding or care or hemoglobin drops. Monitor H&H q. 12. continue home medications - antihypertensives, BPH, gabapentin GI consult.
[2021-01-10] MEDS: FINASTERIDE 5 MG TAB PO SCH (20:42)
[2021-01-10] MEDS: ATORVASTATIN 40 MG TAB PO SCH (20:43)
[2021-01-11] MEDS ORDERED: MAGNESIUM CITRATE 300 ML BOT PO SCH
[2021-01-11] MEDS: METRONIDAZOLE 500mg IVPB 500 MG/100 ML BAG IV SCH ×3 (00:26→18:25)
[2021-01-11] MEDS: Ringers Lactate 1,000 ML IV SCH ×3 (03:21→23:00)
[2021-01-11] MEDS: METOPROLOL TAR 25 MG TAB PO SCH ×2 (06:03→18:27)
[2021-01-11 06:11] LABS: Magnesium 1.7 mg/dL (1.8-2.4); Potassium 3.1 mmol/L (3.5-5.1)
[2021-01-11] MEDS: GABAPENTIN 300 MG CAP PO SCH ×2 (09:00→20:28)
[2021-01-11] MEDS: APIXABAN 2.5 MG TABLET PO SCH ×2 (09:00→20:28)
[2021-01-11] MEDS: FOLIC ACID 1 MG TABLET PO SCH ×2 (09:00→20:28)
[2021-01-11] MEDS: AMLODIPINE 10 MG TAB PO SCH (09:00)
[2021-01-11] MEDS: SUCRALFATE 1 GM TABLET PO SCH ×5 (09:00→21:51)
[2021-01-11] MEDS: SODIUM BICARB 325 MG TAB PO SCH ×2 (09:00→20:28)
[2021-01-11] MEDS: CEFTRIAXONE/SWI 1gm 1 GM/10 ML SYR IV SCH (09:23)
[2021-01-11] MEDS: KCL 20 MEQ/100 mL IVPB 20 MEQ/100 ML BAG IV SCH ×2 (09:23→11:00)
--- NOTE | 2021-01-11 09:25 | P.PN ---
Subjective Date of Service: 01/11/21 Chief Complaint: Acute renal failure Subjective: No new changes Physical Examination - Vital Signs Temperature: 98.7 F Blood Pressure: 121/60 Pulse: 59 Respirations: 14 Pulse Ox (%): 98 - Physical Exam General: Alert, Oriented x3 HEENT: Atraumatic, Normocephalic Neck: Supple Respiratory: Clear to auscultation bilaterally Cardiovascular: No edema Assessment And Plan Physician Review: Patient Assessed, Agree with Above Assessment and Plan Physician Review Additional Text: Problem List: Diarrhea secondary to suspected Acute enterocolitis Acute renal failure with metabolic acidosis-resolving. Abdominal pain likely secondary to enterocolitis/gastroparesis Anemia of chronic disease Hypokalemia-persistent. Hypomagnesemia HTN Neuropathy BPH His NAZANIN is resolving. his creatinine is now 1.49. we will continue hydration. we will replete potassium as this is low at 3.1 this am. we will continue sodium bicarb for metabolic acidemia. Blood pressure control is better today, we will continue present regimen.
[2021-01-11] MEDS: PANTOPRAZOLE 40 MG INJ IVP SCH ×2 (09:51→20:29)
[2021-01-11] MEDS ORDERED: LIDOCAINE 1% MPF 5 ML VIAL ONE (10:57)
[2021-01-11] MEDS ORDERED: propofoL 200 MG/20 ML VIAL IV ONE ×2 (10:57)
--- NOTE | 2021-01-11 11:44 | ENDO RPT ---
[address], [address] COLONOSCOPY PROCEDURE REPORT EXAM DATE: 01/11/2021 PATIENT NAME: Tomer Mckeon MR #: [id number] BIRTHDATE: 1940 ATTENDING: Tomer Rodriguez Dr STATUS: outpatient ASSISTANT ANALYST: Missy Dillon RN, Aminta Omalley RN, Jennifer Chung RN, and Gudelia Headley CST INDICATIONS: The patient is a 80 yr old Male here for a colonoscopy due to hemoccult positive stools, anemia, hgb 8.9, and periumbilical abdominal pain (h/o mesenteric ischemia with inoperable vascular lesion) PROCEDURE PERFORMED: Colonoscopy MEDICATIONS: Per Anesthesia. ESTIMATED BLOOD LOSS: None CONSENT: The patient understands the risks and benefits of the procedure and understands that these risks include, but are not limited to: sedation, allergic reaction, infection, perforation and/or bleeding. Alternative means of evaluation and treatment include, among others: physical exam, x-rays, and/or surgical intervention. The patient elects to proceed with this endoscopic procedure. DESCRIPTION OF PROCEDURE: During intra-op preparation period all mechanical medical equipment was checked for proper function. Hand hygiene and appropriate measures for infection prevention was taken. Procedure, possible complications, alternatives including, but not limited to possibility of bleeding, perforation, tear, infection, sepsis, need for surgery, need for blood transfusion, were explained to the patient. After the risks, benefits and alternatives of the procedure were thoroughly explained, Informed consent was verified, confirmed and timeout was successfully executed by the treatment team. The patient was placed in the left lateral position. A digital rectal exam was performed and revealed external hemorrhoids. After appropriate level of anesthesia, the scope was passed. The EG-[id number] ([id number]) and EC-3890Li ([id number]) endoscope was introduced through the anus and advanced to the ileum. The quality of the prep was poor. The instrument was then slowly withdrawn as the colon was fully examined. Scope withdrawal time was 6 minutes. COLON FINDINGS: There was mild diverticulosis noted throughout the entire examined colon with associated tortuosity. No bleeding was noted from the diverticulosis. Small internal and external hemorrhoids were found. Retroflexed views revealed small hemorrhoids. The scope was then completely withdrawn from the patient and the procedure terminated. ADVERSE EVENTS: There were no complications. IMPRESSIONS: 1. Diverticula scattered sparsely throughout the entire examined colon 2. Small internal and external hemorrhoids 3. Intubation to ileo-colo anastomosis in the ascending colon / ileum RECOMMENDATIONS: 1. fiber rich diet 2. Small Bowel Follow Through 3. pillcam / capsule endoscopy RECALL: Colonoscopy not scheduled due to age (80 y.o.) . Tomer Rodriguez Dr eSigned: Tomer Rodriguez Dr 01/11/2021 11:43 AM cc: CPT CODES: ICD9 CODES: 455.5 External hemorrhoids with other complication PATIENT NAME: Tomer Mckeon MR#: [id number]
--- NOTE | 2021-01-11 11:59 | ENDO RPT ---
[address], [address] EGD PROCEDURE REPORT EXAM DATE: 01/11/2021 PATIENT NAME: Tomer Mckeon MR#: [id number] BIRTHDATE: 1940 ATTENDING: Tomer Rodriguez Dr STATUS: inpatient - 7 AFFILIATE MARKETING MANAGER: Missy Dillon RN, Aminta Omalley RN, Jennifer Chung RN, and Gudelia Headley CST INDICATIONS: The patient is a 80 yr old Male here for an EGD due to periumbilical abdominal pain, anemia, hgb 8.9, hemoccult positive stools, h/o PUD and mesenteric ischemia with inoperable vascular lesion PROCEDURE PERFORMED: EGD with biopsy MEDICATIONS: Per Anesthesia. TOPICAL ANESTHETIC: none CONSENT: The patient understands the risks and benefits of the procedure and understands that these risks include, but are not limited to: sedation, allergic reaction, infection, perforation and/or bleeding. Alternative means of evaluation and treatment include, among others: physical exam, x-rays, and/or surgical intervention. The patient elects to proceed with this endoscopic procedure. DESCRIPTION OF PROCEDURE: During intra-op preparation period all mechanical medical equipment was checked for proper function. Hand hygiene and appropriate measures for infection prevention was taken. Procedure, possible complications, and alternatives including but not limited to the possibility of bleeding, perforation, tear, infection, sepsis, need for surgery, need for blood transfusion, and anesthesia related complications were explained to the patient. After the risks, benefits and alternatives of the procedure were thoroughly explained, Informed consent was verified, confirmed and timeout was successfully executed by the treatment team. The patient was placed in the left lateral position. The patient was anesthetized with topical anesthesia. Through the anesthetized oropharyngeal area, the scope was passed without any difficulty. The EC-3890Li ([id number]) and Pentax EG-[id number] ([id number]) endoscope was introduced through the mouth and advanced to the second portion of the duodenum. Retroflexed views revealed a moderate sized hiatal hernia. The gastroscope was then slowly withdrawn and removed. A moderate sized hiatal hernia was found. Moderate pathcy atrophic gastritis (with mild telangiectasias indicative of possible mesenteric ischemia) was found in the total stomach. Multiple biopsies were obtained and sent to pathology. Multiple (4) 2-6 mm clean-based shallow ulcers were found in the cardia / body of the stomach. A small diverticulum was found in the body of the stomach. ADVERSE EVENTS: There were no complications. IMPRESSIONS: 1. Moderate sized hiatal hernia 2. Moderate pathcy atrophic gastritis (with mild telangiectasias indicative of possible mesenteric ischemia) in the total stomach, s/p biopsies 3. Multiple (4) 2-6 mm clean-based shallow ulcers in the carfdia / body of the stomach 4. Small diverticulum in the body of the stomach RECOMMENDATIONS: 1. await biopsy results 2. acid suppression therapy 3. hematocrit REPEAT EXAM: Tomer Rodriguez Dr eSigned: Tomer Rodriguez Dr 01/11/2021 11:58 AM cc: CPT CODES: ICD9 CODES: PATIENT NAME: Tomer Mckeon MR#: [id number]
[2021-01-11] MEDS ORDERED: MAGNESIUM SULFATE 1 gm IVPB 1 GM/100 ML BAG IV ONE (13:00)
--- NOTE | 2021-01-11 14:14 | P.PN ---
Subjective Date of Service: 01/11/21 Chief Complaint: Acute renal failure Subjective: No new changes (No acute events Denies any chest pain or shortness of breath) Review of Systems 10-point ROS is otherwise unremarkable Physical Examination - Vital Signs Temperature: 97.6 F Blood Pressure: 148/45 Pulse: 61 Respirations: 18 Pulse Ox (%): 98 - Physical Exam General: Alert, In no apparent distress HEENT: Atraumatic, Normocephalic Neck: Supple Respiratory: Clear to auscultation bilaterally, Normal air movement Cardiovascular: Regular rate/rhythm, Normal S1 S2 Capillary refill: <2 Seconds Gastrointestinal: Soft and benign, W/out hepatosplenomegaly Musculoskeletal: No clubbing, No swelling Integumentary: No rashes Neurological: Other (Alert, Awake , non focal ) Lymphatics: No axilla or inguinal lymphadenopathy Assessment & Plan Physician Review: Patient Assessed, Agree with Above Assessment and Plan Physician Review Additional Text: Diarrhea secondary to suspected Acute enterocolitis Acute renal failure with metabolic acidosis Abdominal pain likely secondary to enterocolitis/gastroparesis Anemia of chronic disease Hypokalemia Hypomagnesemia HTN Neuropathy BPH mild leukocytosis and procal elevation on admission, continue rocephin/flagyl stool studies ordered, 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 diff negative. Tolerated gi soft, advance to regular diet continue with IV hydration, improvement of Cr, decrease to 75ml/hr. Patient still with metabolic acidosis. IV fluid changed ringers lactate Nephrology input appreciated. replace electrolytes-magnesium and potassium. protonix BID, carafate ordered (on protonix daily and carafate at home). History of gastric ulcers. Patient is on iron therapy. He is on Eliquis for AFib anticoagulation. Monitor for drop in hemoglobin or active bleeding. Start Eliquis if active bleeding or care or hemoglobin drops. Monitor H&H q. 12. continue home medications - antihypertensives, BPH, gabapentin GI consult.Appreciate help from GI Getting an EGD and colonoscopy today Awaiting further recommendations from GI Appreciate help from nephrology Electrolytes monitored and replaced accordingly Disposition : Possible Dc home once clinically condition improved Time Spent Managing Pts Care (In Minutes): 38
[2021-01-11 17:19] LABS: Hematocrit 28.5 % (39.6-49.0)
[2021-01-11] MEDS ORDERED: POTASSIUM CL SA 10 MEQ TAB PO ONE (18:11)
[2021-01-11] MEDS: FINASTERIDE 5 MG TAB PO SCH (20:28)
[2021-01-11] MEDS: ATORVASTATIN 40 MG TAB PO SCH (20:29)
[2021-01-12] MEDS: METRONIDAZOLE 500mg IVPB 500 MG/100 ML BAG IV SCH ×2 (00:10→08:55)
[2021-01-12] MEDS: TRAZODONE 50 MG TABLET PO PRN (00:21)
[2021-01-12 00:51] LABS: Potassium 3.6 mmol/L (3.5-5.1)
[2021-01-12] MEDS ORDERED: POTASSIUM CL SA 10 MEQ TAB PO ONE (02:17)
[2021-01-12 04:51] LABS: Hematocrit 25.9 % (39.6-49.0)
[2021-01-12 05:00] LABS: Magnesium 1.7 mg/dL (1.8-2.4); Potassium 3.7 mmol/L (3.5-5.1)
[2021-01-12] MEDS: METOPROLOL TAR 25 MG TAB PO SCH (06:07)
[2021-01-12] MEDS: Ringers Lactate 1,000 ML IV SCH (06:10)
[2021-01-12] MEDS ORDERED: MAGNESIUM SULFATE 1 gm IVPB 1 GM/100 ML BAG IV ONE (08:11)
[2021-01-12] MEDS: FOLIC ACID 1 MG TABLET PO SCH (08:54)
[2021-01-12] MEDS: PANTOPRAZOLE 40 MG INJ IVP SCH (08:54)
[2021-01-12] MEDS: SUCRALFATE 1 GM TABLET PO SCH ×2 (08:54→13:00)
[2021-01-12] MEDS: CEFTRIAXONE/SWI 1gm 1 GM/10 ML SYR IV SCH (08:55)
[2021-01-12] MEDS: APIXABAN 2.5 MG TABLET PO SCH (08:55)
[2021-01-12] MEDS: AMLODIPINE 10 MG TAB PO SCH (08:55)
[2021-01-12] MEDS: GABAPENTIN 300 MG CAP PO SCH (08:56)
--- NOTE | 2021-01-12 10:52 | P.PN ---
Subjective Date of Service: 01/12/21 Chief Complaint: Acute renal failure Subjective: No new changes, Improving Physical Examination - Vital Signs Temperature: 97.6 F Blood Pressure: 167/70 Pulse: 62 Respirations: 17 Pulse Ox (%): 99 - Physical Exam General: Alert, Oriented x3 HEENT: Atraumatic, Normocephalic Neck: Supple Respiratory: Clear to auscultation bilaterally Cardiovascular: Regular rate/rhythm, Normal S1 S2 Gastrointestinal: Soft and benign Neurological: Normal speech, Normal strength at 5/5 x4 extr, Cranial nerves 3-12 intact - Studies Microbiology Data (last 24 hrs): 01/06/21 18:54 Blood - Blood Aerobic Blood Culture - Final No growth in 5 days. 01/06/21 18:54 Blood - Blood Anaerobic Blood Culture - Final No growth in 5 days. 01/06/21 17:43 Blood - Blood Aerobic Blood Culture - Final No growth in 5 days. 01/06/21 17:43 Blood - Blood Anaerobic Blood Culture - Final No growth in 5 days. Assessment And Plan - Plan Diarrhea secondary to suspected Acute enterocolitis Acute renal failure with metabolic acidosis-resolving. Abdominal pain likely secondary to enterocolitis/gastroparesis Anemia of chronic disease Hypokalemia-persistent. Hypomagnesemia HTN Neuropathy BPH His NAZANIN is resolving. his creatinine is now 1.25. we will continue hydration. potassium is 3.7 this am. we will monitor. magnesium is still low at 1.7. we will give 1g of mag sulphate and monitor lab in am. bicarb is near normal at 21 today. we will continue sodium bicarb for metabolic acidemia. Blood pressure control is better today, we will continue present regimen. Physician Review: Patient Assessed, Agree with Above Assessment and Plan Physician Review Additional Text: Diarrhea secondary to suspected Acute enterocolitis Acute renal failure with metabolic acidosis Abdominal pain likely secondary to enterocolitis/gastroparesis Anemia of chronic disease Hypokalemia Hypomagnesemia HTN Neuropathy BPH mild leukocytosis and procal elevation on admission, continue rocephin/flagyl stool studies ordered, 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 diff negative. Tolerated gi soft, advance to regular diet continue with IV hydration, improvement of Cr, decrease to 75ml/hr. Patient still with metabolic acidosis. IV fluid changed ringers lactate Nephrology input appreciated. replace electrolytes-magnesium and potassium. protonix BID, carafate ordered (on protonix daily and carafate at home). History of gastric ulcers. Patient is on iron therapy. He is on Eliquis for AFib anticoagulation. Monitor for drop in hemoglobin or active bleeding. Start Eliquis if active bleeding or care or hemoglobin drops. Monitor H&H q. 12. continue home medications - antihypertensives, BPH, gabapentin GI consult.Appreciate help from GI Getting an EGD and colonoscopy today Awaiting further recommendations from GI Appreciate help from nephrology Electrolytes monitored and replaced accordingly Disposition : Possible Dc home once clinically condition improved
[2021-01-12] MEDS: SODIUM BICARB 325 MG TAB PO SCH (11:04)
[2021-01-12 12:10] VITALS: BP 144/60; TEMP 97.5
[2021-01-12 12:49] VITALS: O2SAT 98
--- NOTE | 2021-01-12 14:11 | RAD REPORT ---
EXAM DESCRIPTION: RAD - Abdomen Single View - 01/12/2021 2:01 pm CLINICAL HISTORY: Abdomen pain. GI bleed FINDINGS: The bowel gas pattern is unremarkable. Vascular calcifications No abnormal mass noted
--- NOTE | 2021-01-12 15:59 | P.DS ---
Admission Date: 01/06/21 Discharge Date: 01/12/21 Disposition: ROUTINE DISCHARGE Reason for Admission: Acute renal failure - Problems (1) Acute anemia Current Visit: No Status: Acute (2) Acute kidney injury Current Visit: No Status: Acute (3) Enterocolitis Current Visit: No Status: Acute (4) GI bleed Current Visit: No Status: Acute Qualifiers: GI bleed type/associated pathology: melena Qualified Code(s): K92.1 - Melena (5) Metabolic acidosis Current Visit: No Status: Acute (6) Hypomagnesemia Current Visit: Yes Status: Acute Brief History of Present Illness: 80-year-old man with a history of chronic atrial fibrillation on chronic anticoagulation, gastroparesis, anemia, history of colon cancer under surveillance, history of short gut syndrome presented to the emergency department with a complaint of abdominal pain and diarrhea. According to the spouse patient experienced is 1 cm. His serum creatinine was up to 3.4, baseline of 1.73. His white cell count also so mildly elevated to 12.4. CT abdomen and pelvis demonstrated fluid within nondilated colon indicating diarrhea. Patient was admitted for further management. Hospital Course: Patient diagnosed with acute renal failure secondary to the enterocolitis. He was hydrated with IV fluid. Patient was seen by nephrology-Dr. Julien who assisted with management of the acute renal failure. Patient had metabolic acidosis which was managed with sodium bicarb replacements. His serum creatinine responded to IV fluid and improved to baseline. Stool WBC was negative suggesting against infection. Stool culture yielded no growth. His fecal occult blood test was positive. His hemoglobin dropped by 1 unit. There was a concern for GI bleed. Gastroenterology was consulted, patient was seen by Dr. Rodriguez who performed EGD and colonoscopy. EGD reported small gastric ulcers and teleangiectasia. Colonoscopies demonstrated diverticulosis and hemorrhoids. Patient is on Eliquis for AFib anticoagulation which has been discontinued. Dr. Rodriguez recommended small bowel series but patient and spouse stated patient ingested in oral contrast due to his short gut and therefore declined the study. Dr. Rodriguez also recommend capsule endoscopy which is to be done as an outpatient. Patient and his has been informed of the need for capsule endoscopy after which his Eliquis can be resumed if his test results suggest no evidence of active bleed. Patient completed 5 days of antibiotic treatment for enterocolitis. Vital Signs/Physical Exam: Temp Pulse Resp BP Pulse Ox 97.5 F 63 17 144/60 H 98 01/12/21 12:00 01/12/21 12:00 01/12/21 12:00 01/12/21 12:00 01/12/21 12:00 General: Alert, In no apparent distress, Oriented x3 HEENT: Mucous membr. moist/pink Neck: JVD not distended Respiratory: Clear to auscultation bilaterally, Normal air movement Cardiovascular: No edema, Normal S1 S2, Irregular heart rate/rhythm Gastrointestinal: Normal bowel sounds, Soft and benign, Non-distended, No tenderness Musculoskeletal: No swelling, No tenderness Integumentary: No rashes Neurological: Other (No focal motor deficit.) Laboratory Data at Discharge: WBC 6.50 K/uL (4.3-10.9) D 01/10/21 05:44 Hgb 8.8 g/dL (13.6-17.9) L 01/12/21 04:27 Hct 25.9 % (39.6-49.0) L 01/12/21 04:27 Plt Count 205 K/uL (152-406) 01/10/21 05:44 PT 12.1 SECONDS (9.5-12.5) 01/06/21 17:43 INR 1.05 01/06/21 17:43 Sodium 143 mmol/L (136-145) 01/12/21 04:27 Potassium 3.7 mmol/L (3.5-5.1) 01/12/21 04:27 BUN 27 mg/dL (7-18) H 01/12/21 04:27 Creatinine 1.25 mg/dL (0.55-1.3) 01/12/21 04:27 Glucose 98 mg/dL (74-106) 01/12/21 04:27 Phosphorus 2.8 mg/dL (2.5-4.9) D 01/09/21 05:20 Magnesium 1.7 mg/dL (1.8-2.4) L 01/12/21 04:27 Total Bilirubin 0.3 mg/dL (0.2-1.0) 01/10/21 05:44 AST 9 U/L (15-37) L 01/10/21 05:44 ALT 7 U/L (12-78) L 01/10/21 05:44 Alkaline Phosphatase 82 U/L (45-117) 01/10/21 05:44 Troponin I 0.02 ng/mL (0.0-0.045) 01/06/21 17:43 Triglycerides 108 mg/dL (<150) 01/07/21 04:52 Cholesterol 80 mg/dL (<200) 01/07/21 04:52 HDL Cholesterol 39 mg/dL (40-60) L 01/07/21 04:52 Cholesterol/HDL Ratio 2.05 01/07/21 04:52 Lipase 115 U/L (73-393) 01/06/21 15:38 Home Medications: Atorvastatin Calcium [Lipitor] 40 mg PO BEDTIME 04/27/20 Azelastine [Astelin 137MCG/Metered [place]*] 1 spray IH DAILY 04/27/20 Finasteride 5 mg PO BEDTIME 04/27/20 Folic Acid 400 mg PO BID 04/27/20 Gabapentin 600 mg PO BID 04/27/20 Hydrocodone Bit/Acetaminophen [Hydrocodon-Acetaminoph 7.5-325] 1 tab PO Q4H PRN 04/27/20 Metoprolol Tartrate 12.5 mg PO BID 04/27/20 Nitroglycerin [Nitrostat*] 0.4 mg SL SEECOM 04/27/20 Sucralfate [Carafate*] 1 gm PO TID 04/27/20 Epoetin Shayne-Epbx [Retacrit] 20 unit SQ DAILY 01/08/21 Furosemide [Lasix*] 80 mg PO DAILY 01/08/21 Losartan Potassium [Cozaar] 100 mg PO DAILY 01/08/21 Meclizine HCl [Antivert*] 12.5 mg PO BID PRN 01/08/21 Trazodone HCl 100 mg PO BEDTIME 01/08/21 cloNIDine HCL [Clonidine HCl] 0.1 mg PO Q4HR PRN 01/08/21 Pantoprazole [Protonix Tab*] 40 mg PO BID #60 tab 01/12/21 Sodium Bicarbonate 1,300 mg PO BID #120 tablet 01/12/21 New Medications: Pantoprazole [Protonix Tab*] 40 mg PO BID #60 tab Sodium Bicarbonate 1,300 mg PO BID #120 tablet Physician Discharge Instructions: You will need a follow up with Dr. Rodriguez next week for arrangement for capsular endoscopy. You will need to follow with you PCP after Dr. Rodriguez has completed workup for GI bleeding, so your Eliquis can be resumed if your test result suggest it. Diet: AHA Activity: Ad claudio Followup: ERIKA JAMES [Primary Care Provider] - 1 Week Tomer Rodriguez MD [ASSOCIATE-ACTIVE - CAN ADMIT] - 1 Week Time spent managing pt's care (in minutes): 40
--- NOTE | 2021-01-15 21:03 | CON ---
Date of Consultation: 01/11/2021 Reason For Consultation: Heme-positive stool/anemia, hemoglobin of 8.9, periumbilical pain. History Of Present Illness: This patient is an 80-year-old white male with history of peptic ulcer d isease, mesenteric ischemia with vascular lesion thought to be inoperable, short-gut syndrome. The p atient presents to the hospital due to acute renal failure, periumbilical pain, and diarrhea. In the emergency room, the patient was tested. He was heme-positive from below and noted to have a hemoglo bin of 8.9 later in the course of his hospitalization. 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 Medications: Include Lipitor, Astelin, finasteride, folate, gabapentin, [place], metoprolol, Nitrostat , Carafate, Retacrit, which is Epogen, Lasix, Cozaar, Antivert, trazodone, clonidine, Protonix, and s odium bicarbonate. Allergies: HYDRALAZINE. Social History: , 2 children. No tobacco. No alcohol. Family History: Father of myocardial infarction. Mother of leukemia. Review of Systems: The patient has periumbilical pain on admission, now is gone. He has also had some change in bowel h abits, diarrhea x1 week, seems to be largely resolved now in the hospital as well, but no melena, hem atochezia, hematemesis, coffee-ground emesis, hematuria, dysuria, polydipsia, hemoptysis, lower extre mity edema, muscle aches, joint aches, backaches, seizure, syncope, chest pain, shortness of breath. Physical Examination: Vital Signs: The patient is 6 feet 2 inches, 166 pounds, BMI 21.4 kg/m2. HEENT: Normocephalic, atraumatic. Anicteric. Pupils equal, round, and reactive to light. Extraocu lar movements intact. Oropharynx is clear. Neck: Supple. No mass. Respirations: Clear to auscultation bilaterally. Cardiac: Regular rate and rhythm. No gallops or rubs. Abdomen: Positive bowel sounds. Soft, nontender, nondistended. No hepatosplenomegaly. Extremities: No clubbing, cyanosis, or edema. 2+ pulses. Neurologic: Alert and oriented x3. Grossly nonfocal. 5/5 motor sensation intact to light touch. Laboratory Data: The patient has a white count on 01/10 of 6.5, hemoglobin 9.4 today, hematocrit 29, MCV of 83, platelet count 205, polys of 75%, lymphocytes 14%, monocytes 9%, eosinophils 3%. PT of 1 2.1, INR of 1.1. The patient has sodium 142, potassium 3.1, chloride 115, bicarb 18, BUN of 39, crea tinine of 1.5, glucose 102, calcium 8.2, magnesium 1.7, total bilirubin 0.3, AST of 9, ALT of 7, alfred line phosphatase 82, total protein 5.1, albumin 2.4, globulin 2.7. UA does show 1+ blood, 20 to 50 R BCs, otherwise negative. Serology: COVID-19 testing was negative. C diff testing was negative as well. CT abdomen and pelvis revealed fluid with nondilated colon, may indicate diarrhea. Chest x-ray, left lung is clear, right upper lobe opacity demonstrated, but he has a history of lung cancer. Impression: 1.Heme-positive stool/anemia. Hemoglobin 8.9. 2.History of peptic ulcer disease, mesenteric ischemia with inoperable vessel as per Surgery assessm ent as tells us today. 3.Periumbilical pain on admission, now resolved. 4.Change in bowel habits, diarrhea x1 week. Clostridium diff was negative on this admission already . Diarrhea seems largely resolved as per patient. 5.History of peptic ulcer disease; mesenteric ischemia with vascular lesion, inoperable as per surge ry in the past. 6.Short-gut syndrome, status post small bowel and colon resection. 7.Lung cancer under surveillance in the right upper lobe, it appears by chest x-ray. 8.Gastroparesis. 9.Anemia. 10.Atrial fibrillation, on chronic anticoagulation. Recommendations: 1.EGD. 2.Colonoscopy. 3.Check iron numbers. 4.Continue IV fluids and IV antibiotics. 5.Check stool studies. JELENA/NENA Voice ID: [id number] Report ID: [id number]
== END 2021-01-12 17:11 | disposition home or self-care (01) | DRG 682 ==
LOC: ER 14:50 → ERHOLD 19:15 → 2ND 01-07 08:09
PROVIDERS: ADMIT Hospitalist; ATTEND Internal Medicine
PROC: 0DB68ZX Excision of Stomach, Via Natural or Artificial Opening Endoscopic, Diagnostic (ICD-10-PCS; principal; 2021-01-11 12:15)
PROC: 0DJD8ZZ Inspection of Lower Intestinal Tract, Via Natural or Artificial Opening Endoscopic (ICD-10-PCS; 2021-01-11 12:15)
DX: N17.9 Acute kidney failure, unspecified (principal); K25.4 Chronic or unspecified gastric ulcer with hemorrhage; E87.2 Acidosis; K52.9 Noninfective gastroenteritis and colitis, unspecified; K64.8 Other hemorrhoids; K64.4 Residual hemorrhoidal skin tags; K31.84 Gastroparesis; I10 Essential (primary) hypertension; E83.42 Hypomagnesemia; K44.9 Diaphragmatic hernia without obstruction or gangrene; D72.829 Elevated white blood cell count, unspecified; I48.91 Unspecified atrial fibrillation; D63.8 Anemia in other chronic diseases classified elsewhere; N40.0 Benign prostatic hyperplasia without lower urinary tract symptoms; G62.9 Polyneuropathy, unspecified; K31.4 Gastric diverticulum; E87.6 Hypokalemia; Z79.01 Long term (current) use of 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; Z79.899 Other long term (current) drug therapy; Z85.118 Personal history of other malignant neoplasm of bronchus and lung; Z87.891 Personal history of nicotine dependence; Z89.421 Acquired absence of other right toe(s); Z66 Do not resuscitate; Z20.822 Contact with and (suspected) exposure to COVID-19; Z23 Encounter for immunization
CPT/HCPCS: 36415; 70450; 71045; 74018; 74176; 80048; 80053; 80061; 80076; 81003; 81015; 82274; 82947; 83605; 83690; 83735; 83970; 84100; 84132; 84145; 84439; 84443; 84484; 85014; 85018; 85025; 85610; 87040; 87045; 87046; 87177; 87209; 87324; 87449; 88305; 88312; 89055; 90471; 90732; 93005; 99285; C9113; J0696; J0744; J2270; J2405; J2704; J2765; J3010; J3475; J3480; J7040; J7120; Q2035; U0003

== ENCOUNTER 2021-10-30 07:57 | Day surgery (SDC) | payer OTHER ==
[2021-10-26 14:06] LABS: Absolute Lymphocytes (CBC) 0.9 K/uL (0.7-4.9); Basophils % 0.6 % (0-1.3); Hematocrit 30.7 % (39.6-49.0); Lymphocytes % 14.1 % (15.3-44.8); MPV 7.7 fL (7.6-11.3); RBC Red Blood Cell Count 3.15 M/uL (4.33-5.43)
[2021-10-26 14:09] LABS: Protime INR 0.98
[2021-10-26 14:35] LABS: Potassium 4.4 mmol/L (3.5-5.1)
[2021-10-30] MEDS ORDERED: Ringers Lactate 1,000 ML IV ONE (08:03)
[2021-10-30] MEDS ORDERED: CEFAZOLIN/NS 1gm 1 GM/50 ML BAG ONE (08:03)
[2021-10-30] MEDS ORDERED: NA CIT/CITRIC AC 30 ML ORAL UDC ONE (08:59)
[2021-10-30] MEDS ORDERED: METOCLOPRAMIDE 10 MG/2mL INJ ONE (08:59)
[2021-10-30 09:07] VITALS: O2SAT 100
[2021-10-30] MEDS ORDERED: LIDOCAINE 1% W/EPI 1:100,000 MDV 50 ML VIAL ONE (09:12)
[2021-10-30] MEDS ORDERED: FENTANYL CITR 100 MCG/2 ML ONE (09:15)
[2021-10-30] MEDS ORDERED: propofoL 200 MG/20 ML VIAL IV ONE (09:15)
[2021-10-30] MEDS ORDERED: LIDOCAINE 1% MPF 5 ML VIAL ONE (09:15)
[2021-10-30] MEDS ORDERED: ONDANSETRON 4 MG/2 ML VIAL ONE (09:41)
--- NOTE | 2021-10-30 10:01 | P.OP ---
Preoperative diagnosis: RIGHT Pleural Effusion Postoperative diagnosis: RIGHT Pleural Effusion Primary procedure: Placement of RIGHT Thoracic Pleur-X catheter Anesthesia: 1% lidocaine Estimated blood loss: <1 cc Specimen: none Findings: reddish clear yellow fluid Complications: None Drain(s): Other (PleurX catheter) Transferred to: Recovery Room Condition: Good
--- NOTE | 2021-10-30 10:45 | RAD REPORT ---
[facility]25 am CLINICAL HISTORY: Device placement pleural catheter placement IMPRESSION: A right chest tube has placed. It enters the mid lateral right hemithorax and extends in feriorly medially. . A small right pneumothorax is present
--- NOTE | 2021-10-30 12:15 | OP ---
Date of Procedure: 10/30/2021 Surgeon: Dakota Steve MD, Preoperative Diagnosis: Right pleural effusion. Postoperative Diagnosis: Right pleural effusion. Procedure Performed: Placement of a right thoracic pleural tunneled catheter. Anesthesia: 1% lidocaine with epinephrine used. Estimated Blood Loss: Less than 1 cc. Specimen: None. Findings: Reddish clear yellow fluid. Complications: None. Drains: PleurX catheter. Disposition: The patient was transferred to the recovery room in good condition. Procedure In Detail: After informed consent was obtained, the patient was brought to the operating r oom, prepped and draped in the usual sterile fashion after adequate anesthesia achieved. I found an area on the right thoracic space and along the midaxillary line and approximately the fifth and sixth intercostal space. I anesthetized the area appropriately including a tract inferior anterior to the insertion site using 1% lidocaine with epinephrine. I then made small violette incisions at the inserti on site of the exit site, brought a tunneling device through, and placed the finder needle with sheat h into the thoracic cavity. Yellowish red fluid was returned immediately. The needle was removed an d the wire was advanced posteroinferiorly at this point. I then performed sequential dilatation and placed introducer sheath at this point and the catheter was then placed into the thoracic cavity. At this point, the sheath was removed and the catheter cuff was in the appropriate location. I then ho oked up to suction and got a reddish yellow fluid without any bleeding or complication. I then melvi d this at this point and placed a sterile dressing over top. The patient tolerated the procedure wel l without evidence of complication. Had 2 sutures placed, which were 2-0 nylon sutures after appropr iately washing the chest wall and sterile dressing was placed over top. The patient tolerated the pr ocedure well without evidence of complication and transferred to PACU in good condition. All counts were correct at the end of the case. TK/MODL Voice ID: [id number] Report ID: [id number]
[2021-10-30 12:48] VITALS: BP 146/65; TEMP 96.9
== END 2021-10-30 12:20 | disposition home or self-care (01) ==
LOC: OR 07:57
PROVIDERS: ATTEND Surgery
PROC: 0W9930Z Drainage of Right Pleural Cavity with Drainage Device, Percutaneous Approach (ICD-10-PCS; principal; 2021-10-30 09:15)
DX: J90 Pleural effusion, not elsewhere classified (principal); Z20.822 Contact with and (suspected) exposure to COVID-19
CPT/HCPCS: 93005; 85025; 80048; 36415; 85610; 85730; 71045; 32550; U0003; J2704; J2765; J3010; J0690; J7120; J2405

== ENCOUNTER 2021-11-08 14:26 | Emergency (ER) | payer MEDICARE, OTHER ==
--- OUTSIDE RECORDS SUMMARY | 2021-11-08 14:35 | XMS REPORT | Continuity of Care Document ---
:1940 Author Organization [facility] t Address [address] [place] [address] Support Name Relationship Address Phone MATILDE P [address] [phone] [place] [address] EVE Rogers Unavailable Unavailable Contact Unavailable Unavailable PHYSICIAN Primary Care Physician Unavailable Unavailab milton DAY FIELD GEOLOGIST, E Attending Provider [address] [phone] [place] [address] MATILDE Next of Kin [address] [place] [id number] MD ROMAN N Primary Care Physician [address] [place] [id number] BASHIR MANCIA S Attending Provider [address] [phone] [place] [id number] RANJAN VALDES MD E Admitting Provider [address] [place] [id number] MATILDE Unavailable [address] [place] [address] DO DAMIR Emergency Provider [address] [email or web address] [address] MD SOY Emergency Provider [address] [place] [address] MD NETTA Admitting Provider [address] [place] [id number] MD BLAS Attending Provider NEPHR[facility] [place] [id number] Care Team Providers Name Role Phone Ahmet HAYWOOD Primary Care Physician Unavailable A_Byyannick Attending Clinician Unavailable TREASURE Attending Clinician Unavailable [facility] Attending Clinician Unavailable Ovidio Attending Clinician Unavailable A_Byrd Admitting Clinician Unavailable AMANDA Admitting Clinician Unavailable [facility] Admitting Clinician Unavailable Shield Admitting Clinician Unavailable Payers Payer Name Policy Type Policy Number Effective Date Expiration Date [employer]ison [employer] - [id number] 2020 [facility] 00:00:00 (MEDICARE REPLACEMENT/ADVANTA GE - HMO) [employer] MEDICARE [id number] 2020 00:00:00 [employer] ALL [id number] 2016 00:00:00 UHC - MEDICARE [id number] COMPLETE (MEDICARE REPLACEMENT HMO) Problems Condition Condition Condition Status Onset Resolution Last Treating Co mments Source Name Details Category Date Date Treatment Clinician Date Pre-surger Pre-surger Problem Active 2020-11 [facility] y y 2-16 da evaluation Evaluation 00:00: Me dical 00 Group Impacted Impacted Problem Active 2020-11 [facility] cerumen in Cerumen in 0-19 da left ear Left Ear 00:00: Medica l 00 Group Stented Stented Problem Active [facility] artery Artery 5-18 da 00:00: Medical 00 Group Traumatic Traumatic Problem Active [facility] blister of Blister of 5-18 da toe Toe 00:00: Medical 00 Group Acute Acute Problem Active [facility] peptic Peptic 3-11 da ulcer Ulcer 00:00: Medical 00 Group Chronic Chronic Problem Active [facility] diarrhea Diarrhea 7-21 da 00:00: Medical 00 Group Chronic Chronic Problem Active [facility] pain Pain 4-08 da 00:00: Medical 00 Group Pruritus Pruritus Problem Active [facility] of skin of Skin 4-08 da 00:00: Medical 00 Group Peripheral Peripheral Problem Active 0 M [facility] vascular Vascular 2-21 da disease Disease 00:00: Medical 00 Group Venous Venous Problem Active [facility] stasis Stasis 2-21 da ulcer of Ulcer of 00:00: Medica l leg Leg 00 Group Irritable Irritable Problem Active [facility] bowel Bowel 9-24 da syndrome Syndrome 00:00: Medica l with with 00 Group diarrhea Diarrhea Stasis Stasis Problem Active [facility] ulcer Ulcer 9-11 da 00:00: Medical 00 Group Foreign Foreign Problem Active [facility] body - Body - 2-26 da finger Finger 00:00: Medical 00 Group 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 00:00: Medi faye 00 Group 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 00:00: Medi faye 00 [...] Problem Active [facility] 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 00:00: Me dical a without a without 00 Grou p outflow Outflow obstructio Obstructio n n Near Near Problem Active [facility] syncope Syncope 124 da 00:00: Medical 00 Group Lung Lung Disease Active [facility] disease disease [facility] Allergies, Adverse Reactions, Alerts Allergy Allergy Status Severity Reaction(s) Onset Inactive Treating Comm ents Source Name Type Date Date Clinician HYDRALAZ Allergy Active 2020-11 [facility] INE 1-11 00:00: 00 Hydralaz Propensi Active Itching Metho di ine ty to 7-13 st adverse 00:00: Hospita reaction 00 l s to drug Hydralaz Allergy Active Severe Hives [facility] ine to da substanc Medical e Group NO KNOWN Allergy Active [facility] Social History Social Habit Start Date Stop Date Quantity Comments Source Tobacco use and 2018-06-13 2018-06-13 Never used [facility] exposure 00:00:00 00:00:00 Sex [birth year] [facility] 00:00:00 00:00:00 Smoking Status Start Date Stop Date Source Former Smoker [facility] Never smoker [facility] Medications Ordered Filled Start Stop Current Ordering Indication Dosage Frequency Signature Comments Components Source Medication Medication Date Date Medication? Clinician (SIG) Name Name dronabinol Yes dronabinol M ethodi (MARINOL) 06-[address] 2.5 MG 14:39: capsule Hospita capsule 26 Take 1 l capsule every day by oral route for 90 days. finasteride Yes finasterid [facility] (PROSCAR) 5 06-[address] mg tablet 14:39: tablet Hospit a 26 Take 1 l tablet every day by oral route for 90 days. flecainide Yes flecainide M ethodi (TAMBOCOR) 06-[address] 150 MG 14:39: tablet Hospita tablet 26 Take 1/2 l tablet once a day by oral route for 90 days fludrocorti Yes fludrocort [facility] sone 06-[address] (FLORINEF) 14:39: mg tablet Ho spita 0.1 mg 26 Take 1 l tablet tablet every day by oral route for 90 days furosemide Yes furosemide M ethodi (LASIX) 40 06-[address] mg tablet 14:39: tablet Hospit a 26 TAKE 1 l TABLET BY MOUTH DAILY gabapentin Yes gabapentin M ethodi (NEURONTIN) 06-[address] 600 mg 14:39: tablet Hospita tablet 26 Take 2 l tablets 3 times a day by oral route for 90 days. HYDROcodone Yes hydrocodon [facility] -acetaminop 06-[address] hen (NORCO) 14:39: mg-acetami Hospita 7.5-325 mg 26 nophen 325 l per tablet mg tablet Take 1 tablet every day by oral route for 30 days. linaclotide Yes Linzess Met hodi (LINZESS) 06-[address] 290 mcg 14:39: capsule Hospita capsule 26 Take 1 l capsule every day by oral route for 90 days. metoprolol Yes metoprolol M ethodi succinate 06-[address] XL 14:39: ER 50 mg Hospita (TOPROL-XL) 26 tablet,ext l 50 mg 24 hr ended tablet release 24 hr Take 1 tablet every day by oral route for 90 days. sucralfate 2018-0 Yes sucralfate M ethodi (CARAFATE) 06-[address] 1 gram 14:39: tablet Hospita tablet 26 l tamsulosin 2018-0 Yes tamsulosin M ethodi (FLOMAX) 06-[address] 0.4 mg 14:39: capsule Hospita capsule,ext 26 Take 1 l ended capsule release every day 24hr by oral route for 90 days. valsartan 2017-0 Yes valsartan Met [facility]odi (DIOVAN) 06-[address] 320 MG 14:39: tablet Hospita tablet 26 Take 1 l tablet every day by oral route for 90 days. zolpidem 2017-0 Yes zolpidem Metho di (AMBIEN) 10 06-[address] mg tablet 14:39: tablet Hospit a 26 Take 1 l tablet every day by oral route for 30 days. potassium 2018-0 Yes Klor-Con Meth hebert chloride 06-[address] (KLOR-CON 14:39: tablet,ext Ho spita M20) 20 MEQ 26 ended l CR tablet release Take 1 tablet every day by oral route for 90 days. rivaroxaban 2017-0 Yes 20mg Take 20 mg [facility] (XARELTO) [address] 20 mg 14:39: Hospita tablet 26 l omeprazole 2018-0 Yes 40mg QD Take 40 mg M ethodi (PriLOSEC) 06-[address] 40 MG 14:39: daily. Hospita capsule 26 l cyanocobala 2018-0 Yes 1000ug QD Take 1,000 Method[facility] min 7-[address] (VITAMIN 14:39: mouth Hospita B-12) 1000 26 daily. l MCG tablet calcium 2018-0 Yes 1{tbl} QD Chew 1 Method i carbonate 7-[address] (TUMS) 200 14:39: daily. Hospi ta mg calcium 26 l (500 mg) chewable tablet magnesium 2018-0 Yes 1000mg QD Take 1,000 [facility] gluconate 7-[address] (MAGONATE) 14:39: mouth Hospit a 500 mg 26 daily. l tablet tablet ferrous Yes 325mg QD Take 325 Metho di sulfate 325 7-[address] (65 FE) MG 14:39: mouth Hospit a tablet 26 daily with l breakfast. amLODIPine Yes amlodipine M ethodi (NORVASC) 5 7-[address] mg tablet 14:39: tablet Hospit a 26 l azelastine Yes azelastine M ethodi (ASTELIN) [address] 137 mcg 14:39: (0.1 %) Hospita (0.1 %) 26 nasal l nasal spray spray aerosol clonIDINE Yes clonidine Met [facility] (CATAPRES) 7- HCl 0.[address] 0.1 MG 14:39: tablet Hospita tablet 26 Take 1 l tablet twice a day by oral route as needed. allopurinol allopurinol No allopurino [facility] 300 mg 300 mg l 300 mg da tablet Take tablet Take tablet Medical 1 tablet 1 tablet Take 1 Group every day every day tablet by oral by oral every day route. route. by oral route. amlodipine amlodipine No amlodipine [facility] 10 mg [...] TAKE 1 Group MOUTH MOUTH TABLET BY DAILY DAILY MOUTH DAILY azelastine azelastine No 1spray( Q1D azelastine [facility] 205.5 mcg 205.5 mcg s) 205.5 mcg da (0.15 %) (0.15 %) (0.15 %) Med ical nasal spray nasal spray nasal Group Sunnyside 1 Sunnyside 1 spray spray every spray every Sunnyside 1 day by day by spray intranasal [...] DAILY TIMES DAILY MOUTH FOUR TIMES DAILY doxycycline doxycycline No doxycyclin [facility] hyclate 100 hyclate 100 e hyclate da mg tablet mg tablet 100 mg Med ical tablet Group Eliquis 5 Eliquis 5 No Eliquis 5 [facility] mg tablet mg tablet mg tablet da Medical Group finasteride finasteride No finasterid [facility] 5 mg tablet 5 mg tablet e 5 mg da TAKE 1 TAKE 1 tablet Medical TABLET BY TABLET BY TAKE 1 Abigail up MOUTH MOUTH TABLET BY DAILY DAILY MOUTH DAILY folic acid folic acid No folic acid [facility] 400MG Q 400MG Q 400MG Q da DAILY DAILY DAILY Medical Group furosemide furosemide No furosemide [facility] 40 mg 40 mg 40 mg da tablet TAKE tablet TAKE tablet Medical 2 TABLETS 2 TABLETS TAKE 2 Abigail up BY MOUTH BY MOUTH TABLETS BY DAILY DAILY MOUTH DAILY gabapentin gabapentin No gabapentin [facility] 300 mg [...] mg 600 mg 600 mg da tablet TAKE tablet TAKE tablet Medical 1 TABLET BY 1 TABLET BY TAKE 1 Group MOUTH THREE MOUTH THREE TABLET BY TIMES DAILY TIMES DAILY MOUTH THREE TIMES DAILY iron 1 PO iron 1 PO No iron 1 PO [facility] DAILY DAILY DAILY da Medical Group meclizine meclizine No 1 BID meclizine [facility] [...] TAKE 1 MOUTH MOUTH TABLET BY TWICE DAILY TWICE DAILY MOUTH TWICE DAILY nitroglycer nitroglycer No nitroglyce [facility] in 0.4 mg in 0.4 mg rin 0.4 mg da sublingual sublingual sublingual Medical tablet tablet tablet Group Place [address] 1 tablet as tablet as tablet as needed by needed by needed by sublingual sublingual sublingual route as route as route as directed. directed. directed. omeprazole omeprazole No omeprazole [facility] 20 mg 20 mg 20 mg da capsule,del capsule,del capsule,de Medical ayed ayed layed Group release release release take one take one take one tablet tablet tablet daily daily daily ondansetron ondansetron No ondansetro [facility] HCl 4 mg HCl 4 mg n HCl 4 mg d a tablet tablet tablet Medical Group OraMagicRx OraMagicRx No 5mL TID OraMagicRx [facility] mouthwash mouthwash mouthwash da Take 5 mL 3 Take 5 mL 3 Take 5 mL Medical times a day times a day 3 times a Group by mucous by mucous day by route as route as mucous needed for needed for route as 10 days. 10 days. needed for 10 days. pantoprazol pantoprazol No pantoprazo [facility] e 40 mg e 40 mg le 40 mg da tablet,tammy tablet,tammy tablet,del Medical yed release yed release ayed G roup TAKE 1 TAKE 1 release TABLET BY TABLET BY TAKE 1 MOUTH MOUTH TABLET BY TWICE DAILY TWICE DAILY MOUTH TWICE DAILY potassium potassium No potassium [facility] chloride chloride chloride da 20MEQ 1 PO 20MEQ 1 PO 20MEQ 1 PO Medical DAILY DAILY DAILY Group potassium potassium No potassium [facility] chloride ER chloride ER chloride da 20 mEq 20 mEq ER 20 mEq Medica l tablet,exte tablet,exte tablet,ext Group nded nded ended release(par release(par release(pa t/cryst) t/cryst) rt/cryst) Take 1 Take 1 Take 1 tablet tablet tablet every day every day every day by oral by oral by oral route. route. route. Retacrit 20 Retacrit 20 No Retacrit [facility] [...] MOUTH EVERY DAY EVERY DAY EVERY DAY tramadol 50 tramadol 50 No tramadol [facility] mg tablet mg tablet 50 mg da tablet Medical Group triamcinolo triamcinolo No triamcinol [facility] ne ne one da acetonide acetonide acetonide Medical 0.1 % 0.1 % 0.1 % Group topical topical topical cream APPLY cream APPLY cream A THIN A THIN APPLY A LAYER TO LAYER TO THIN LAYER THE THE TO THE AFFECTED AFFECTED AFFECTED AREA TWICE AREA TWICE AREA TWICE DAILY DAILY DAILY Immunizations Ordered Immunization Filled Immunization Date Status Commen ts Source Name Name pneumococcal, pneumococcal, 2021-01-09 Completed [facility] unspecified unspecified 00:00:00 Medical Grou p formulation formulation influenza, influenza, 2021-01-09 Completed [facility] injectable, injectable, 00:00:00 Medical Grou p quadrivalent quadrivalent influenza, influenza, 2020-10-24 Completed [facility] injectable, injectable, 00:00:00 Medical Grou p quadrivalent quadrivalent influenza, influenza, 2020-08-18 Completed [facility] injectable, injectable, 00:00:00 Medical Grou p quadrivalent quadrivalent influenza, high dose influenza, high dose 2019-09-11 Completed [facility] seasonal seasonal 00:00:00 Medical Group pneumococcal pneumococcal 2019-06-15 Completed [facility] conjugate PCV 13 conjugate PCV 13 12:50:00 Me dical Group pneumococcal pneumococcal 2018-12-15 Completed [facility] polysaccharide PPV23 polysaccharide PPV23 12:13:06 Medical Group Vital Signs Vital Name Observation Time Observation Value Comments Source BP Diastolic 2021-10-26 00:00:00 87 mm[Hg] [facility] Height 2021-10-26 00:00:00 74 [in_i] [facility] BMI (Body Mass 2021-10-26 00:00:00 24 kg/m2 [facility] Medical Index) Group BP Systolic 2021-10-26 00:00:00 134 mm[Hg] [facility] Body Weight 2021-10-26 00:00:00 2992 [oz_av] [facility] HEIGHT 2021-09-28 05:46:00 188 cm WEIGHT 2021-09-28 05:46:00 85.73 kg HEIGHT 2021-09-28 05:46:00 188 cm WEIGHT 2021-09-28 05:46:00 85.73 kg BP Diastolic 2021-09-26 00:00:00 84 mm[Hg] [facility] Height 2021-09-26 00:00:00 74 [in_i] [facility] BMI (Body Mass 2021-09-26 00:00:00 24 kg/m2 [facility] Medical Index) Group BP Systolic 2021-09-26 00:00:00 120 mm[Hg] [facility] Body Weight 2021-09-26 00:00:00 2992 [oz_av] [facility] BP Diastolic 2021-09-12 00:00:00 80 mm[Hg] [facility] Height 2021-09-12 00:00:00 74 [in_i] [facility] BMI (Body Mass 2021-09-12 00:00:00 25.3 kg/m2 [facility] [employer] [facility] Index) Group BP Systolic 2021-09-12 00:00:00 120 mm[Hg] [facility] Body Weight 2021-09-12 00:00:00 197 [lb_av] [facility] BP Diastolic 2021-09-05 00:00:00 69 mm[Hg] [facility] Height 2021-09-05 00:00:00 74 [in_i] [facility] BMI (Body Mass 2021-09-05 00:00:00 23 kg/m2 [facility] [employer] [facility]) Group BP Systolic 2021-09-05 00:00:00 102 mm[Hg] [facility] Body Weight 2021-09-05 00:00:00 2864 [oz_av] [facility] BP Diastolic 2021-08-10 00:00:00 99 mm[Hg] [facility] Height 2021-08-10 00:00:00 74 [in_i] [facility] BMI (Body Mass 2021-08-10 00:00:00 23 kg/m2 [facility] [employer] [facility] Index) Group BP Systolic 2021-08-10 00:00:00 174 mm[Hg] [facility] Body Weight 2021-08-10 00:00:00 2870.4 [oz_av] [facility] BP Diastolic 2021-06-07 00:00:00 59 mm[Hg] [facility] Height 2021-06-07 00:00:00 74 [in_i] [facility] BMI (Body Mass 2021-06-07 00:00:00 22.9 kg/m2 [facility] [employer] [facility]) Group BP Systolic 2021-06-07 00:00:00 95 mm[Hg] [facility] Body Weight 2021-06-07 00:00:00 2854.4 [oz_av] [facility] BP Diastolic 2021-05-31 00:00:00 44 mm[Hg] [facility] Height 2021-05-31 00:00:00 74 [in_i] [facility] BMI (Body Mass 2021-05-31 00:00:00 22.2 kg/m2 [facility] [employer] [facility]) Group BP Systolic 2021-05-31 00:00:00 71 mm[Hg] [facility] Body Weight 2021-05-31 00:00:00 2768 [oz_av] [facility] BP Diastolic 2021-05-24 00:00:00 60 mm[Hg] [facility] Height 2021-05-24 00:00:00 74 [in_i] [facility] BMI (Body Mass 2021-05-24 00:00:00 22.3 kg/m2 [facility] [employer] [facility]) Group BP Systolic 2021-05-24 00:00:00 105 mm[Hg] [facility] Body Weight 2021-05-24 00:00:00 2775 [oz_av] [facility] BP Diastolic 2021-04-04 00:00:00 67 mm[Hg] [facility] Height 2021-04-04 00:00:00 74 [in_i] [facility] BMI (Body Mass 2021-04-04 00:00:00 22.5 kg/m2 [facility] [employer] [facility]) Group BP Systolic 2021-04-04 00:00:00 131 mm[Hg] [facility] Body Weight 2021-04-04 00:00:00 2809.6 [oz_av] [facility] [employer] [facility] BP Diastolic 2021-01-25 00:00:00 57 mm[Hg] [facility] Height 2021-01-25 00:00:00 74 [in_i] [facility] BMI (Body Mass 2021-01-25 00:00:00 22.6 kg/m2 [facility] [employer] [facility]) Group BP Systolic 2021-01-25 00:00:00 140 mm[Hg] [facility] Body Weight 2021-01-25 00:00:00 2822.4 [oz_av] [facility] Height 2020-06-07 00:00:00 74 [in_i] [facility] BMI (Body Mass 2020-06-07 00:00:00 22.6 kg/m2 [facility] [employer] [facility]) Group Body Weight 2020-06-07 00:00:00 2816 [oz_av] [facility] BP Diastolic 2020-01-26 00:00:00 56 mm[Hg] [facility] Height 2020-01-26 00:00:00 74 [in_i] [facility] BMI (Body Mass 2020-01-26 00:00:00 25.9 kg/m2 [facility] [employer] [facility]) Group BP Systolic 2020-01-26 00:00:00 131 mm[Hg] [facility] Body Weight 2020-01-26 00:00:00 3232 [oz_av] [facility] BP Diastolic 2020-01-19 00:00:00 63 mm[Hg] [facility] Height 2020-01-19 00:00:00 74 [in_i] [facility] BMI (Body Mass 2020-01-19 00:00:00 25.9 kg/m2 [facility] [employer] [facility]) Group BP Systolic 2020-01-19 00:00:00 174 mm[Hg] [facility] Body Weight 2020-01-19 00:00:00 3232 [oz_av] [facility] BP Diastolic 2020-01-06 00:00:00 70 mm[Hg] [facility] Height 2020-01-06 00:00:00 74 [in_i] [facility] BMI (Body Mass 2020-01-06 00:00:00 25.9 [facility]2 [facility] BP Systolic 2020-01-06 00:00:00 144 mm[Hg] [facility] Body Weight 2020-01-06 00:00:00 3232 [oz_av] [facility] BP Diastolic 2019-12-30 00:00:00 65 mm[Hg] [facility] Height 2019-12-30 00:00:00 74 [in_i] [facility] BMI (Body Mass 2019-12-30 00:00:00 26.2 kg/m2 [facility] BP Systolic 2019-12-30 00:00:00 160 mm[Hg] [facility] Body Weight 2019-12-30 00:00:00 3265 [oz_av] [facility] BP Diastolic 2019-09-24 00:00:00 63 mm[Hg] [facility] Height 2019-09-24 00:00:00 74 [in_i] [facility] BMI (Body Mass 2019-09-24 00:00:00 27.2 kg/m2 [facility] Medical Index) Group BP Systolic 2019-09-24 00:00:00 185 mm[Hg] [facility] Body Weight 2019-09-24 00:00:00 3395 [oz_av] [facility] BP Diastolic 2019-08-24 00:00:00 66 mm[Hg] [facility] Height 2019-08-24 00:00:00 74 [in_i] [facility] BMI (Body Mass 2019-08-24 00:00:00 25.2 kg/m2 [facility] Medical Index) Group BP Systolic 2019-08-24 00:00:00 159 mm[Hg] [facility] Body Weight 2019-08-24 00:00:00 3136 [oz_av] [facility] BP Diastolic 2019-08-03 00:00:00 74 mm[Hg] [facility] Height 2019-08-03 00:00:00 74 [in_i] [facility] BMI (Body Mass 2019-08-03 00:00:00 24.7 kg/m2 [facility] Index) Group BP Systolic 2019-08-03 00:00:00 156 mm[Hg] [facility] Body Weight 2019-08-03 00:00:00 3072 [oz_av] [facility] BP Diastolic 2019-07-29 00:00:00 77 mm[Hg] [facility] Height 2019-07-29 00:00:00 74 [in_i] [facility] BMI (Body Mass 2019-07-29 00:00:00 25.3 kg/m2 [facility] Index) Group BP Systolic 2019-07-29 00:00:00 149 mm[Hg] [facility] Body Weight 2019-07-29 00:00:00 3152 [oz_av] [facility] BP Diastolic 2019-07-01 00:00:00 76 mm[Hg] [facility] Height 2019-07-01 00:00:00 74 [in_i] [facility] BMI (Body Mass 2019-07-01 00:00:00 26.9 kg/m2 [facility] Index) Group BP Systolic 2019-07-01 00:00:00 195 mm[Hg] [facility] Body Weight 2019-07-01 00:00:00 3347 [oz_av] [facility] BP Diastolic 2019-06-15 00:00:00 64 mm[Hg] [facility] Height 2019-06-15 00:00:00 74 [in_i] [facility] BMI (Body Mass 2019-06-15 00:00:00 26.7 kg/m2 [facility] Medical Index) Group BP Systolic 2019-06-15 00:00:00 169 mm[Hg] [facility] Body Weight 2019-06-15 00:00:00 3328 [oz_av] [facility] BP Diastolic 2019-01-13 00:00:00 70 mm[Hg] [facility] Height 2019-01-13 00:00:00 74 [in_i] [facility] BMI (Body Mass 2019-01-13 00:00:00 27 kg/m2 [facility] Index) Group BP Systolic 2019-01-13 00:00:00 148 mm[Hg] [facility] Body Weight 2019-01-13 00:00:00 3360 [oz_av] [facility] BP Diastolic 2019-01-09 00:00:00 62 mm[Hg] [facility] Height 2019-01-09 00:00:00 74 [in_i] [facility] BMI (Body Mass 2019-01-09 00:00:00 27 kg/m2 [facility] Medical Index) Group BP Systolic 2019-01-09 00:00:00 152 mm[Hg] [facility] Body Weight 2019-01-09 00:00:00 3360 [oz_av] [facility] BP Diastolic 2018-12-11 00:00:00 71 mm[Hg] [facility] Height 2018-12-11 00:00:00 74 [in_i] [facility] BMI (Body Mass 2018-12-11 00:00:00 26.7 kg/m2 [facility] Medical Index) Group BP Systolic 2018-12-11 00:00:00 160 mm[Hg] [facility] Body Weight 2018-12-11 00:00:00 3328 [oz_av] [facility] Procedures Procedure Date / Time Performing Clinician Source Performed Pacemaker 2019-11-22 00:00:00 [facility] Placement of Stent 2017-11-18 00:00:00 [facility] Chemotherapy by Infusion 2017-11-18 00:00:00 [facility] Circumcision 2017-11-18 00:00:00 [facility] Excision of Squamous Cell 2016-11-18 00:00:00 Ari brito [facility] Carcinoma Group Hernia Repair 2016-11-18 00:00:00 [facility] Screening for Malignant 2015-11-18 00:00:00 Deni dempsey [facility] Neoplasm of Skin Group Gastrointestinal Repair 2014-11-18 00:00:00 [facility] Fistula Repair & Colostomy 2014-11-18 00:00:00 [facility] Procedure on Gallbladder 2014-11-18 00:00:00 [facility] Repair of Hydrocele [facility] dical Group Plan of Care Planned Activity Planned Date Details Comments Source Future Scheduled Test COVID-19 VACCINE (1) [facility] [code = COVID-19 VACCINE (1)] Future Scheduled Test SHINGLES VACCINES (#1) [facility] [code = SHINGLES VACCINES (#1)] Future Scheduled Test 65+ PNEUMOCOCCAL [facility] VACCINE (1 of 1 - PPSV23) [code = 65+ PNEUMOCOCCAL VACCINE (1 of 1 - PPSV23)] Future Scheduled Test INFLUENZA VACCINE [code [facility] = INFLUENZA VACCINE] Encounters Start End Encounter Admission Attending Care Care Encounter Source Date/Time Date/Time Type Type Clinicians Facility Department ID 2021-10-26 2021-10-26 Outpatient [id number] [facility] 03:49:00 03:49:00 [id number] [facility] 2021-10-26 2021-10-26 Lalito Lester [facility] [place] - [id number] M atagor 00:00:00 00:00:00 MD Roman: Discovery alejandre [address] [facility] [place] - [address], [facility] [place] [address] , Ph. 2021-09-28 2021-09-28 Outpatient NICHOLAS AMANDA [facility] Surgery [id number] [facility] 05:38:00 15:07:00 2021-09-27 2021-09-27 Outpatient A_Byrd [facility] [id number] [place] 10:08:00 10:08:00 1112 [facility] 2021-09-27 2021-09-27 Outpatient A_Byrd [facility] [id number] [place] 10:08:00 10:08:00 1201 [facility] 2021-09-27 2021-09-27 Outpatient A_Byrd [facility] [id number] [place] 10:08:00 10:08:00 1202 [facility] 2021-09-27 2021-09-27 Outpatient [facility] [id number] [facility] 00:00:00 00:00:00 2021-09-26 2021-09-26 Outpatient A_Byrd [facility] [id number] [place] 12:25:00 12:25:00 1109 [facility] 2021-09-26 2021-09-26 Neeru [facility] [place] - [id number] M atagor 00:00:00 00:00:00 Discovery Donnell da PA-C: [address] [facility] [address], [place] [address] , Ph. 2021-09-12 2021-09-12 Outpatient A_Byrd [facility] [id number] [place] 02:27:00 02:27:00 1026 [facility] 2021-09-12 2021-09-12 PITER Harris [place] - [id number] [place] 00:00:00 00:00:00 : Leia Mercado [facility], [facility], [facility], [facility] [address] , Ph. 2021-09-05 2021-09-05 [facility] [id number] [place] 02:49:00 02:49:00 1019 [facility] 2021-09-05 2021-09-05 Lalito Lester MM [place] - [id number] M atagor 00:00:00 00:00:00 MD Roman: [address] [address] , Ph. 2021-08-10 2021-08-10 Outpatient A_Byrd [facility] [id number] [place] 09:35:00 09:35:00 0923 [facility] 2021-08-10 2021-08-10 Lalito Lester MM [place] - [id number] M atagor 00:00:00 00:00:00 MD Roman: [address] [address] , Ph. 2021-06-28 2021-06-28 [facility] [id number] [place] 05:04:00 05:04:00 0814 [facility] 2021-06-12 2021-06-12 [place] [id number] [place] 02:30:00 02:30:00 0726 [facility] 2021-06-07 2021-06-07 [place] [id number] [place] 10:51:00 10:51:00 0721 [facility] 2021-06-07 2021-06-07 Lalito Lester MM [place] - [id number] M atagor 00:00:00 00:00:00 MD Roman: [address] [place] [address] , Ph. 2021-06-05 2021-06-05 [place] [id number] [place] 03:04:00 03:04:00 0719 [facility] 2021-05-31 2021-05-31 [place] [facility] [place] [id number] [place] 12:56:00 12:56:00 0714 [facility] 2021-05-31 2021-05-31 [facility] [place] - [id number] M at[place] 00:00:00 00:00:00 Discovery pili Jacobo PA-C: [address] [place] [address] [place] [address] , Ph. 2021-05-24 2021-05-24 [facility]patient [facility] [id number] [place] 02:15:00 02:15:00 0707 [facility] 2021-05-24 2021-05-24 Lalito Lester MM [place] - [id number] M atagor 00:00:00 00:00:00 MD Roman: [address] [place] [address] , Ph. 2021-05-23 2021-05-23 Outpatient [facility] [id number] [place] 04:29:00 04:29:00 0706 [facility] 2021-04-04 2021-04-04 [place] [id number] [place] 02:49:00 02:49:00 0518 [facility] 2021-04-04 2021-04-04 Lalito Lester MM [place] - [id number] M at[place]or 00:00:00 00:00:00 MD Roman: Discovery alejandre [address] [place] [address], [facility] [place] [address] , Ph. 2021-03-22 2021-03-22 Outpatient [facility] MMG [id number] [place] 04:08:00 04:08:00 0510 [facility] 2021-03-22 2021-03-22 Outpatient [facility] MMG [id number] [place] 04:08:00 04:08:00 0514 [facility] 2021-02-27 2021-02-27 Outpatient [facility] MMG [id number] [place] 02:25:00 02:25:00 0412 [facility] 2021-02-27 2021-02-27 Outpatient [facility] MMG [id number] [place] 02:25:00 02:25:00 0426 [facility] 2021-01-25 2021-01-25 Outpatient A_Byrd MMG MMG [id number] [place] 11:02:00 11:02:00 0310 [facility] 2021-01-25 2021-01-25 Outpatient A_Byrd MMG MMG [id number] [place] 11:02:00 11:02:00 0312 Medical Group 2021-01-25 2021-01-25 Lalito N MM [place] - [id number] M atagor 00:00:00 00:00:00 MD Roman: [address] [place] [address] , Ph. 2020-10-05 2020-10-05 Outpatient A_Byrd MMG MMG [id number] [place] 02:33:00 02:33:00 0309 Medical Group 2020-10-05 2020-10-05 Outpatient A_Byrd MMG MMG [id number] [place] 02:33:00 02:33:00 1118 Medical Group 2020-06-07 2020-06-07 Outpatient A_Byrd MMG MMG [id number] [place] 05:51:00 05:51:00 0721 [facility] 2020-06-07 2020-06-07 Lalito N MMG [place] - [id number] M at[place]or 00:00:00 00:00:00 MD Roman: [address], [place] [address] , Ph. 2020-02-24 2020-02-24 Outpatient A_Byrd MMG MMG [id number] [place] 06:12:00 06:12:00 0408 Medical Group 2020-02-24 2020-02-24 Lalito N MMG [place] - [id number] M atagor 00:00:00 00:00:00 MD Roman: [address] - [facility] [address], [place] [address] , Ph. 2020-02-02 2020-02-02 Outpatient A_Byrd MMG MMG [id number] [place] 05:43:00 05:43:00 0317 Medical [facility] 2020-01-26 2020-01-26 Outpatient A_Byrd MMG MMG [id number] [place] 08:48:00 08:48:00 0310 Medical [facility] 2020-01-26 2020-01-26 Lalito Lester MM [place] - [id number] M atagor 00:00:00 00:00:00 MD Roman: [place] [address], [place] [address] , Ph. 2020-01-19 2020-01-19 Outpatient A_Byrd MMG MMG [id number] [place] 06:45:00 06:45:00 0303 Medical [facility] 2020-01-19 2020-01-19 Lalito Lester MM [place] - [id number] M at[place]or 00:00:00 00:00:00 MD Roman: [place] [address], [place] [address] , Ph. 2020-01-09 2020-01-09 Outpatient A_Byrd MMG MMG [id number] [place] 09:33:00 09:33:00 0222 Medical Group 2020-01-08 2020-01-08 Outpatient A_Byrd MMG MMG [id number] [place] 01:39:00 01:39:00 0221 [facility] 2020-01-06 2020-01-06 Outpatient A_Byrd [facility] [id number] [place] 03:14:00 03:14:00 0219 [facility] 2020-01-06 2020-01-06 Lalito Lester MM [place] - [id number] M at[place] 00:00:00 00:00:00 MD Roman: [address], [place] [address] , Ph. 2019-12-30 2019-12-30 [facility] [id number] [place] 06:10:00 06:10:00 0212 [facility] 2019-12-30 2019-12-30 Lalito Lester MM [place] - [id number] M at[place]or 00:00:00 00:00:00 MD Roman: [address], [place] [address] , Ph. 2019-09-24 2019-09-24 Lalito Lester MM [place] - [id number] M at[place] 00:00:00 00:00:00 MD Roman: [address], [place] [address] , Ph. 2019-08-24 2019-08-24 Lalito Lester MM [place] - [id number] M [place] 00:00:00 00:00:00 MD Roman: [address], [facility], [place] [address] , Ph. 2019-08-03 2019-08-03 Lalito DUMAS [place] - [id number] M at[place]or 00:00:00 00:00:00 MD Roman: [address], [place] [address] , Ph. 2019-07-29 2019-07-29 Lalito DUMAS [place] - [id number] M at[place] 00:00:00 00:00:00 MD Roman: [place] [address], [place] [address] , Ph. 2019-07-01 2019-07-01 Sammie DUMAS [place] - [id number] M at[place]or 00:00:00 00:00:00 Discovery pili Day FIELD GEOLOGIST: [address] [place] [address], [place] [address], [place] [address] , Ph. 2019-06-15 2019-06-15 Lalito DUMAS [place] - [id number] M at[place] 00:00:00 00:00:00 MD Roman: itzat [address], [place] [address], [place] [address] , Ph. 2019-01-13 2019-01-13 Lalito DUMAS [place] - [id number] M at[place]or 00:00:00 00:00:00 MD Roman: itz[address] [place] [address], [place] [address] , Ph. 2019-01-09 2019-01-09 Lalito DUMAS [place] - [id number] M [place] 00:00:00 00:00:00 MD Roman: [address] [place] [address], [place] [address] , Ph. 2018-12-11 2018-12-11 Lalito DUMAS [place] - [id number] M [place] 00:00:00 00:00:00 MD Roman: itzat [place] [address], [place] [address] , Ph. Results Test Description Test Time Test Comments Results Result Comments Source Comprehensive metabolic 2000 panel - Serum or Plasma 2021-10 10:31:00 Test Item Value Reference Range Interpretation Comme nts Glucose [Mass/volume] in Serum or Plasma (test code = 108 mg/dL 82-115 2345-7) Urea nitrogen [Mass/volume] in Serum or Plasma (test code = 74 mg/d L 8-23 H 3094-0) osmolality calculated,serum (test code = osmolality 300 mOsm/kg 28 0-300 calculated,serum) creatinine (test code = creatinine) 3.0 mg/dL 0.70-1.20 H glomerular filtration rate (test code = glomerular 20.18 L filtration rate) Urea nitrogen/Creatinine [Mass Ratio] in Serum or Plasma 24.7 12-20 H (test code = 3097-3) sodium level (test code = sodium level) 139 mmol/L 135-145 potassium level (test code = potassium level) 4.6 mmol/L 3.5-5.2 chloride level (test code = chloride level) 102 mmol/L 98-108 CO2 (test code = CO2) 22 mmol/L 21-32 anion gap (test code = anion gap) 19.6 mEq/L 12-20 calcium level (test code = calcium level) 9.1 mg/dL 8.8-10.2 total protein (test code = total protein) 6.9 g/dL 6.6-8.7 albumin (test code = albumin) 4.0 g/dL 3.5-5.2 globulin (test code = globulin) 2.9 gm/dL A/G ratio (test code = A/G ratio) 1.4 >1.0 bilirubin,total (test code = bilirubin,total) 0.3 mg/dL 0.0-1.2 AST/SGOT (test code = AST/SGOT) 20 U/L 15-40 Alanine aminotransferase [Enzymatic activity/volume] in 7 U/L 0-41 Serum or Plasma (test code = 1742-6) Alkaline phosphatase [Enzymatic activity/volume] in Serum 104 U/L 40-130 or Plasma (test code = 6768-6) [facility] W Auto Differential panel - [id number] 10:31:00 Test Item Value Reference Range Interpretation Comments white blood count (test code = 6.5 K/uL 4.0-12.3 white blood count) red blood count (test code = red 3.11 M/uL 3.80-5.80 L blood count) hemoglobin (test code = 9.8 g/dL 11.7-17.2 L hemoglobin) hematocrit (test code = 32.0 % 35.0-51.0 L hematocrit) MCV [Entitic volume] (test code = 102.9 fL 83-100 H 79329-4) mean corpuscular hemoglobin (test 31.5 pg 26.8-33.4 code = mean corpuscular hemoglobin) mean corpuscular HGB conc (test 30.6 g/dL 30-35 code = mean corpuscular HGB conc) red cell distribution width (test 17.7 % 12.0-14.0 H code = red cell distribution width) platelet count (test code = 221 K/uL 175-450 platelet count) mean platelet volume (test code = 10.6 fL 9.4-12.6 mean platelet volume) Segmented neutrophils/100 64.3 % 44.7-82.4 leukocytes in Blood (test code = 65879-1) Immature granulocytes [#/volume] 0.0 K/uL 0.0-0.03 in Blood (test code = 51263-3) lymphocyte% (test code = 16.0 % 10.0-50.0 lymphocyte%) mono % (test code = mono %) 12.0 % 3.9-13.4 eos % (test code = eos %) 6.9 % 0.0-6.4 H Basophils/100 leukocytes in 0.6 % 0.2-1.2 Unspecified specimen (test code = 54925-2) Band form neutrophils [#/volume] 4.17 K/uL 1.78-5.38 in Blood (test code = 23315-1) Lymphocytes [#/volume] in 1.0 K/uL 1.32-3.57 L Unspecified specimen by Automated count (test code = 62496-5) mono # (test code = mono #) 0.78 K/uL 0.30-0.82 eos # (test code = eos #) 0.45 K/uL 0.04-0.54 basophil # (test code = basophil 0.04 K/uL 0.01-0.08 #) NRBC% (test code = NRBC%) 0 /100 WBC 0-0.2 NRBC# (test code = NRBC#) 0 K/uL [facility], method unspecified - [id number] 00:00:00NeutrophilsBandLymphocyteAtypical LymphMonocyteEosinophilBasophilMetamyelocyteMyelocytePromyelocyteBlastsNucleated Red Blood CellAbs Neutrophil Count (Man)Abs Lymph Count (Man)Abs Monocyte Count (Man)Abs Eosinophil Count (Man)Abs Basophil Count (Man)Platelet EstimatePlatelet MorphologyPoikilocytosisAnisocytosisMacrocytosisTarget CellsBurr CellsSmudge CellsMatagordOceans Behavioral Hospital BiloxiARS-COV2/RT-PCR ([facility])2021-09-28 07:27:06 Test Item Value Reference Range Interpretation Comments SARS-COV2/RT-PCR Negative Negative The SARS-Co V-2 target (test code = nucleic acids a re not [id number]) detected in thi s specimen. Negative result s do not preclude SARS-C oV-2 infection and s hould not be used as the roro e basis for patient managem ent decisions. Nega tive results must be combine d with clinical observ ations, patient history , and epidemiological information. A false negativ e result may occur if a spec imen is improperly donell ected, transported or handled. This SARS CoV-2 test is a rapid, real-marcos e RT-PCR test intended for th e qualitative detection of nu cleic acid from SARS-CoV-2 in a nasopharyngeal swab specimen collected from individuals suspected of CO VID-19 by their healthcar e provider. This test has been authorized by FDA under an EUA for use by authorized laboratories. This test is only authorized for the duration of the declaration that circumstances exist justifying the authorization of emergency use of in vitro diagnostic tests for detection and/or diagnosis of COVID-19 under Section 564(b)(1) of the Federal Food, Drug and Cosmetic Act, 21 U.S.C. 360bbb- 3(b)(1), unless the authorization is terminated or revoked sooner. Fact Sheet for Healthcare Providers: https://www.[employer].com/Documents/Xpert%20Xpress%20SARS%20CoV-2/Fact%20Sheets/302-3802%20SARS-COV -2%20HEALTHCARE%20PROVIDERS%20FACT%20SHEET.pdf Fact Sheet for Healthcare Patients: https://www.[employer]/Documents/Xpert %20Xpress%20SARS%20CoV-2/Fact%20Sheets/302-3801%71VKCC-BOW-1%20PATIENT%20FACT%20 SHEET.pdfBASIC METABOLIC [id number] 06:41:48 Test Item Value Reference Range Interpretation Comments SODIUM (BEAKER) 141 meq/L 136-145 (test code = 381) POTASSIUM (BEAKER) 4.1 meq/L 3.5-5.1 (test code = 379) CHLORIDE (BEAKER) 105 meq/L 98-107 (test code = 382) CO2 (BEAKER) (test 25 meq/L 22-29 code = 355) BLOOD UREA NITROGEN 52 mg/dL 7-21 H (BEAKER) (test code = 354) CREATININE (BEAKER) 2.69 mg/dL 0.57-1.25 H (test code = 358) GLUCOSE RANDOM 108 mg/dL 70-105 H (BEAKER) (test code = 652) CALCIUM (BEAKER) 8.4 mg/dL 8.4-10.2 (test code = 697) EGFR (BEAKER) (test 23 mL/min/1.73 ESTIMA MINDY GFR IS code = 1092) sq m NOT ACCURATE CREATININE CLEARANCE IN PREDICTING GLOMERULAR FILTRATION RATE . ESTIMATED GFR I S NOT APPLICABLE FOR DIALYSIS PATIEN TS. Make Up Operator ID - MARITZA [facility] W/PLT COUNT & AUTO [id number] 06:25:57 Test Item Value Reference Range Interpretation Comments WHITE BLOOD CELL COUNT (BEAKER) 4.7 K/ L 3.5-10.5 (test code = 775) RED BLOOD CELL COUNT (BEAKER) 3.16 M/ L 4.63-6.08 L (test code = 761) HEMOGLOBIN (BEAKER) (test code = 9.8 GM/DL 13.7-17.5 L 410) HEMATOCRIT (BEAKER) (test code = 33.4 % 40.1-51.0 L 411) MEAN CORPUSCULAR VOLUME (BEAKER) 105.7 fL 79.0-92.2 H (test code = 753) MEAN CORPUSCULAR HEMOGLOBIN 31.0 pg 25.7-32.2 (BEAKER) (test code = 751) MEAN CORPUSCULAR HEMOGLOBIN CONC 29.3 GM/DL 32.3-36.5 L (BEAKER) (test code = 752) RED CELL DISTRIBUTION WIDTH 18.9 % 11.6-14.4 H (BEAKER) (test code = 412) PLATELET COUNT (BEAKER) (test 141 K/CU MM 150-450 L code = 756) MEAN PLATELET VOLUME (BEAKER) 10.0 fL 9.4-12.4 (test code = 754) NUCLEATED RED BLOOD CELLS 0 /100 WBC 0-0 (BEAKER) (test code = 413) NEUTROPHILS RELATIVE PERCENT 69 % (BEAKER) (test code = 429) LYMPHOCYTES RELATIVE PERCENT 18 % (BEAKER) (test code = 430) MONOCYTES RELATIVE PERCENT 8 % (BEAKER) (test code = 431) EOSINOPHILS RELATIVE PERCENT 5 % (BEAKER) (test code = 432) BASOPHILS RELATIVE PERCENT 1 % (BEAKER) (test code = 437) NEUTROPHILS ABSOLUTE COUNT 3.25 K/ L 1.78-5.38 (BEAKER) (test code = 670) LYMPHOCYTES ABSOLUTE COUNT 0.83 K/ L 1.32-3.57 L (BEAKER) (test code = 414) MONOCYTES ABSOLUTE COUNT (BEAKER) 0.37 K/ L 0.30-0.82 (test code = 415) EOSINOPHILS ABSOLUTE COUNT 0.24 K/ L 0.04-0.54 (BEAKER) (test code = 416) BASOPHILS ABSOLUTE COUNT (BEAKER) 0.03 K/ L 0.01-0.08 (test code = 417) IMMATURE GRANULOCYTES-RELATIVE 0 % 0-1 PERCENT (BEAKER) (test code = 2801) SARS-CoV+SARS-CoV-2 (COVID-19) Ag [Presence] in Respiratory specimen by Rapid [id number] 11:53:00 Test Item Value Reference Range Interpretation Comments SARS-CoV - 2 (test code = SARS-CoV - negative 2) [facility] Ag [Presence] in Respiratory specimen by Rapid [id number] 11:53:00 Test Item Value Reference Range Interpretation Comments SARS-CoV - 2 (test code = SARS-CoV - negative 2) [facility] W Auto Differential panel - [id number] 12:54:00 Test Item Value Reference Range Interpretation Comments white blood count (test code = 4.8 K/uL 4.0-12.3 white blood count) red blood count (test code = red 3.03 M/uL 3.80-5.80 L blood count) hemoglobin (test code = 9.1 g/dL 11.7-17.2 L hemoglobin) hematocrit (test code = 31.2 % 35.0-51.0 L hematocrit) MCV [Entitic volume] (test code = 103.0 fL 83-100 H 88410-0) mean corpuscular hemoglobin (test 30.0 pg 26.8-33.4 code = mean corpuscular hemoglobin) mean corpuscular HGB conc (test 29.2 g/dL 30-35 L code = mean corpuscular HGB conc) red cell distribution width (test 17.3 % 12.0-14.0 H code = red cell distribution width) platelet count (test code = 190 K/uL 175-450 platelet count) mean platelet volume (test code = 10.7 fL 9.4-12.6 mean platelet volume) Segmented neutrophils/100 66.4 % 44.7-82.4 leukocytes in Blood (test code = 96736-9) Immature granulocytes [#/volume] 0.0 K/uL 0.0-0.03 in Blood (test code = 38053-2) lymphocyte% (test code = 18.8 % 10.0-50.0 lymphocyte%) mono % (test code = mono %) 9.9 % 3.9-13.4 eos % (test code = eos %) 3.9 % 0.0-6.4 Basophils/100 leukocytes in 0.6 % 0.2-1.2 Unspecified specimen (test code = 00804-9) Band form neutrophils [#/volume] 3.20 K/uL 1.78-5.38 in Blood (test code = 20366-4) Lymphocytes [#/volume] in 0.9 K/uL 1.32-3.57 L Unspecified specimen by Automated count (test code = 41189-8) mono # (test code = mono #) 0.48 K/uL 0.30-0.82 eos # (test code = eos #) 0.19 K/uL 0.04-0.54 basophil # (test code = basophil 0.03 K/uL 0.01-0.08 #) NRBC% (test code = NRBC%) 0 /100 WBC 0-0.2 NRBC# (test code = NRBC#) 0 K/uL [facility] 2000 [facility] - Serum or Plasma 2021-09-05 12:54:00 Test Item Value Reference Range Interpretation Comments glucose (test code = glucose) 88 mg/dL 82-115 Urea nitrogen [Mass/volume] in 56 mg/dL 8-23 H Serum or Plasma (test code = 3094-0) osmolality calculated,serum (test 298 mOsm/kg 280-300 code = osmolality calculated,serum) creatinine (test code = 2.7 mg/dL 0.70-1.20 H creatinine) glomerular filtration rate (test 22.79 L code = glomerular filtration rate) Urea nitrogen/Creatinine [Mass 20.7 12-20 H Ratio] in Serum or Plasma (test code = 3097-3) sodium level (test code = sodium 142 mmol/L 135-145 level) Potassium [Moles/volume] in Body 4.4 mmol/L 3.5-5.2 fluid (test code = 2821-7) chloride level (test code = 104 mmol/L 98-108 chloride level) CO2 (test code = CO2) 23 mmol/L 21-32 anion gap (test code = anion gap) 19.4 mEq/L 12-20 calcium level (test code = 8.5 mg/dL 8.8-10.2 L calcium level) total protein (test code = total 6.5 g/dL 6.6-8.7 L protein) albumin (test code = albumin) 3.6 g/dL 3.5-5.2 globulin (test code = globulin) 2.9 gm/dL A/G ratio (test code = A/G ratio) 1.2 >1.0 bilirubin,total (test code = 0.3 mg/dL 0.0-1.2 bilirubin,total) AST/SGOT (test code = AST/SGOT) 28 U/L 15-40 Alanine aminotransferase 12 U/L 0-41 [Enzymatic activity/volume] in Serum or Plasma (test code = 1742-6) Alkaline phosphatase [Enzymatic 122 U/L 40-130 activity/volume] in Serum or Plasma (test code = 6768-6) [facility] W Auto Differential panel - [id number] 12:54:00 Test Item Value Reference Range Interpretation Comments white blood count (test code = 4.8 K/uL 4.0-12.3 white blood count) red blood count (test code = red 3.03 M/uL 3.80-5.80 L blood count) hemoglobin (test code = 9.1 g/dL 11.7-17.2 L hemoglobin) hematocrit (test code = 31.2 % 35.0-51.0 L hematocrit) MCV [Entitic volume] (test code = 103.0 fL 83-100 H 19751-0) mean corpuscular hemoglobin (test 30.0 pg 26.8-33.4 code = mean corpuscular hemoglobin) mean corpuscular HGB conc (test 29.2 g/dL 30-35 L code = mean corpuscular HGB conc) red cell distribution width (test 17.3 % 12.0-14.0 H code = red cell distribution width) platelet count (test code = 190 K/uL 175-450 platelet count) mean platelet volume (test code = 10.7 fL 9.4-12.6 mean platelet volume) Segmented neutrophils/100 66.4 % 44.7-82.4 leukocytes in Blood (test code = 90702-5) Immature granulocytes [#/volume] 0.0 K/uL 0.0-0.03 in Blood (test code = 00242-2) lymphocyte% (test code = 18.8 % 10.0-50.0 lymphocyte%) mono % (test code = mono %) 9.9 % 3.9-13.4 eos % (test code = eos %) 3.9 % 0.0-6.4 Basophils/100 leukocytes in 0.6 % 0.2-1.2 Unspecified specimen (test code = 42499-3) Band form neutrophils [#/volume] 3.20 K/uL 1.78-5.38 in Blood (test code = 38585-2) Lymphocytes [#/volume] in 0.9 K/uL 1.32-3.57 L Unspecified specimen by Automated count (test code = 13800-6) mono # (test code = mono #) 0.48 K/uL 0.30-0.82 eos # (test code = eos #) 0.19 K/uL 0.04-0.54 basophil # (test code = basophil 0.03 K/uL 0.01-0.08 #) NRBC% (test code = NRBC%) 0 /100 WBC 0-0.2 NRBC# (test code = NRBC#) 0 K/uL [facility] 2000 [facility] - Serum or Plasma 2021-09-05 12:54:00 Test Item Value Reference Range Interpretation Comments glucose (test code = glucose) 88 mg/dL 82-115 Urea nitrogen [Mass/volume] in 56 mg/dL 8-23 H Serum or Plasma (test code = 3094-0) osmolality calculated,serum (test 298 mOsm/kg 280-300 code = osmolality calculated,serum) creatinine (test code = 2.7 mg/dL 0.70-1.20 H creatinine) glomerular filtration rate (test 22.79 L code = glomerular filtration rate) Urea nitrogen/Creatinine [Mass 20.7 12-20 H Ratio] in Serum or Plasma (test code = 3097-3) sodium level (test code = sodium 142 mmol/L 135-145 level) Potassium [Moles/volume] in Body 4.4 mmol/L 3.5-5.2 fluid (test code = 2821-7) chloride level (test code = 104 mmol/L 98-108 chloride level) CO2 (test code = CO2) 23 mmol/L 21-32 anion gap (test code = anion gap) 19.4 mEq/L 12-20 calcium level (test code = 8.5 mg/dL 8.8-10.2 L calcium level) total protein (test code = total 6.5 g/dL 6.6-8.7 L protein) albumin (test code = albumin) 3.6 g/dL 3.5-5.2 globulin (test code = globulin) 2.9 gm/dL A/G ratio (test code = A/G ratio) 1.2 >1.0 bilirubin,total (test code = 0.3 mg/dL 0.0-1.2 bilirubin,total) AST/SGOT (test code = AST/SGOT) 28 U/L 15-40 Alanine aminotransferase 12 U/L 0-41 [Enzymatic activity/volume] in Serum or Plasma (test code = 1742-6) Alkaline phosphatase [Enzymatic 122 U/L 40-130 activity/volume] in Serum or Plasma (test code = 6768-6) [facility]Different[facility], method unspecified - [id number] 00:00:00NeutrophilsBandLymphocyteAtypical LymphMonocyteEosinophilBasophilMetamyelocyteMyelocyteBlastsNucleated Red Blood CellDifferential CommentAbs Neutrophil Count (Man)Abs Lymph Count (Man)Abs Monocyte Count (Man)Abs Eosinophil Count (Man)Abs Basophil Count (Man)Platelet EstimatePlatelet MorphologyHypochrom asiaPoikilocytosisAnisocytosisMicrocytosisMacrocytosisSpherocyteSchistocytesOval ocytesToxic GranulationBurr CellsAcanthocytesHypersegmented PolysRouPrinceton Community HospitalDifferential panel, method unspecified - Blood 2021-09-05 00:00:00NeutrophilsBandLymphocyteAtypical LymphMonocyteEosinophilBasophilMetamyelocyteMyelocyteBlastsNucleated Red Blood CellDifferential CommentAbs Neutrophil Count (Man)Abs Lymph Count (Man)Abs Monocyte Count (Man)Abs Eosinophil Count (Man)Abs Basophil Count (Man)Platelet EstimatePlatelet MorphologyHypochrom asiaPoikilocytosisAnisocytosisMicrocytosisMacrocytosisSpherocyteSchistocytesOval ocytesToxic GranulationBurr CellsAcanthocytesHypersegmented PolysRouleauSmuEncompass Health [facility] Auto Differential panel - [id number] 03:51:00 Test Item Value Reference Range Interpretation Comments white blood count (test code = 6.2 K/uL 4.0-12.3 white blood count) red blood count (test code = red 3.01 M/uL 3.80-5.80 L blood count) hemoglobin (test code = 9.3 g/dL 11.7-17.2 L hemoglobin) hematocrit (test code = 28.9 % 35.0-51.0 L hematocrit) MCV [Entitic volume] (test code = 96.0 fL 83-100 84154-8) mean corpuscular hemoglobin (test 30.9 pg 26.8-33.4 code = mean corpuscular hemoglobin) mean corpuscular HGB conc (test 32.2 g/dL 30-35 code = mean corpuscular HGB conc) red cell distribution width (test 14.6 % 12.0-14.0 H code = red cell distribution width) platelet count (test code = 207 K/uL 175-450 platelet count) mean platelet volume (test code = 9.8 fL 9.4-12.6 mean platelet volume) Segmented neutrophils/100 86.0 % 44.7-82.4 H leukocytes in Blood (test code = 89167-9) Immature granulocytes [#/volume] 0.0 K/uL 0.0-0.03 in Blood (test code = 84300-9) lymphocyte% (test code = 11.6 % 10.0-50.0 lymphocyte%) mono % (test code = mono %) 1.9 % 3.9-13.4 L eos % (test code = eos %) 0 % 0.0-6.4 Basophils/100 leukocytes in 0.2 % 0.2-1.2 Unspecified specimen (test code = 99507-3) Band form neutrophils [#/volume] 5.32 K/uL 1.78-5.38 in Blood (test code = 94017-9) Lymphocytes [#/volume] in 0.7 K/uL 1.32-3.57 L Unspecified specimen by Automated count (test code = 51293-9) mono # (test code = mono #) 0.12 K/uL 0.30-0.82 L eos # (test code = eos #) 0.00 K/uL 0.04-0.54 L basophil # (test code = basophil 0.01 K/uL 0.01-0.08 #) NRBC% (test code = NRBC%) 0 /100 WBC 0-0.2 NRBC# (test code = NRBC#) 0 K/uL [facility]Different[facility], method unspecified - [id number] 03:51:00NeutrophilsBandLymphocyteAtypical LymphMonocyteEosinophilBasophilMetamyelocyteMyelocytePromyelocyteBlastsNucleated Red Blood CellDifferential CommentAbs Neutrophil Count (Man)Abs Lymph Count (Man)Abs Monocyte Count (Man)Abs Eosinophil Count (Man)Abs Basophil Count (Man)Platelet EstimatePlatelet MorphologyHypochromasiaAnisocytosisSmudge Cells [facility] metabolic 2000 panel - Serum or [id number] 03:51:00 Test Item Value Reference Range Interpretation Comments glucose (test code = glucose) 144 mg/dL 82-115 H Urea nitrogen [Mass/volume] in 78 mg/dL 8-23 H Serum or Plasma (test code = 3094-0) osmolality calculated,serum (test 300 mOsm/kg 280-300 code = osmolality calculated,serum) creatinine (test code = 2.2 mg/dL 0.70-1.20 H creatinine) glomerular filtration rate (test 28.87 L code = glomerular filtration rate) Urea nitrogen/Creatinine [Mass 35.5 12-20 H Ratio] in Serum or Plasma (test code = 3097-3) sodium level (test code = sodium 137 mmol/L 135-145 level) Potassium [Moles/volume] in Body 4.1 mmol/L 3.5-5.2 fluid (test code = 2821-7) chloride level (test code = 106 mmol/L 98-108 chloride level) CO2 (test code = CO2) 21 mmol/L 21-32 anion gap (test code = anion gap) 14.1 mEq/L 12-20 calcium level (test code = 8.9 mg/dL 8.8-10.2 calcium level) [facility] W Auto Differential panel - [id number] 03:51:00 Test Item Value Reference Range Interpretation Comments white blood count (test code = 6.2 K/uL 4.0-12.3 white blood count) red blood count (test code = red 3.01 M/uL 3.80-5.80 L blood count) hemoglobin (test code = 9.3 g/dL 11.7-17.2 L hemoglobin) hematocrit (test code = 28.9 % 35.0-51.0 L hematocrit) MCV [Entitic volume] (test code = 96.0 fL 83-100 01411-4) mean corpuscular hemoglobin (test 30.9 pg 26.8-33.4 code = mean corpuscular hemoglobin) mean corpuscular HGB conc (test 32.2 g/dL 30-35 code = mean corpuscular HGB conc) red cell distribution width (test 14.6 % 12.0-14.0 H code = red cell distribution width) platelet count (test code = 207 K/uL 175-450 platelet count) mean platelet volume (test code = 9.8 fL 9.4-12.6 mean platelet volume) Segmented neutrophils/100 86.0 % 44.7-82.4 H leukocytes in Blood (test code = 70924-8) Immature granulocytes [#/volume] 0.0 K/uL 0.0-0.03 in Blood (test code = 26137-5) lymphocyte% (test code = 11.6 % 10.0-50.0 lymphocyte%) mono % (test code = mono %) 1.9 % 3.9-13.4 L eos % (test code = eos %) 0 % 0.0-6.4 Basophils/100 leukocytes in 0.2 % 0.2-1.2 Unspecified specimen (test code = 14246-6) Band form neutrophils [#/volume] 5.32 K/uL 1.78-5.38 in Blood (test code = 61590-4) Lymphocytes [#/volume] in 0.7 K/uL 1.32-3.57 L Unspecified specimen by Automated count (test code = 32859-2) mono # (test code = mono #) 0.12 K/uL 0.30-0.82 L eos # (test code = eos #) 0.00 K/uL 0.04-0.54 L basophil # (test code = basophil 0.01 K/uL 0.01-0.08 #) NRBC% (test code = NRBC%) 0 /100 WBC 0-0.2 NRBC# (test code = NRBC#) 0 K/uL [facility] SystemDifferential panel, method unspecified - [id number] 03:51:00NeutrophilsBandLymphocyteAtypical LymphMonocyteEosinophilBasophilMetamyelocyteMyelocytePromyelocyteBlastsNucleated Red Blood CellDifferential CommentAbs Neutrophil Count (Man)Abs Lymph Count (Man)Abs Monocyte Count (Man)Abs Eosinophil Count (Man)Abs Basophil Count (Man)Platelet EstimatePlatelet MorphologyHypochromasiaAnisocytosisSmudge Cells [facility] SystemBasic metabolic 2000 panel - Serum or [id number] 03:51:00 Test Item Value Reference Range Interpretation Comments glucose (test code = glucose) 144 mg/dL 82-115 H Urea nitrogen [Mass/volume] in 78 mg/dL 8-23 H Serum or Plasma (test code = 3094-0) osmolality calculated,serum (test 300 mOsm/kg 280-300 code = osmolality calculated,serum) creatinine (test code = 2.2 mg/dL 0.70-1.20 H creatinine) glomerular filtration rate (test 28.87 L code = glomerular filtration rate) Urea nitrogen/Creatinine [Mass 35.5 12-20 H Ratio] in Serum or Plasma (test code = 3097-3) sodium level (test code = sodium 137 mmol/L 135-145 level) Potassium [Moles/volume] in Body 4.1 mmol/L 3.5-5.2 fluid (test code = 2821-7) chloride level (test code = 106 mmol/L 98-108 chloride level) CO2 (test code = CO2) 21 mmol/L 21-32 anion gap (test code = anion gap) 14.1 mEq/L 12-20 calcium level (test code = 8.9 mg/dL 8.8-10.2 calcium level) [facility] SystemUrinalysis complete panel - [id number] 12:40:00 Test Item Value Reference Range Interpretation Comments Color of Urine by Auto light yellow (test code = 97448-3) Appearance of Urine (test clear clear code = 5767-9) Glucose [Presence] in negative negative Urine by Automated test strip (test code = 64369-3) Bilirubin.total negative negative [Mass/volume] in Urine (test code = 1978-6) Ketones [Mass/volume] in negative negative Urine by Automated test strip (test code = 63028-4) Specific gravity of Urine 1.014 1.003-1.030 by Automated test strip (test code = 14225-2) blood urine (test code = negative negative blood urine) pH of Urine (test code = 5.500 5-9 2756-5) protein urine (UA) (test trace negative code = protein urine (UA)) Urobilinogen [Presence] normal 0.2-1.0 in Urine (test code = 41436-0) Nitrite [Presence] in negative negative Urine by Test strip (test code = 5802-4) Leukocyte esterase negative negative [Presence] in Urine by Automated test strip (test code = 64332-3) Erythrocytes [#/volume] <1 0-5 in Urine by Automated count (test code = 798-9) Leukocytes [#/area] in <1 0-5 Urine sediment by Automated count (test code = 34607-9) Epithelial cells <1 0-5 [Presence] in Urine sediment by Light microscopy (test code = 33343-8) Bacteria identified in none detected none detect Urine by Culture (test code = 630-4) Casts [#/area] in Urine =6-10 none detect H sediment by Automated count (test code = 42782-3) urine culture added? no (test code = urine culture added?) Pathologic casts coarse granular 1-5 none detect A [Presence] in Urine by Automated (test code = 93976-0) [facility] SystemUrinalysis complete panel - [id number] 12:40:00 Test Item Value Reference Range Interpretation Comments Color of Urine by Auto light yellow (test code = 16846-8) Appearance of Urine (test clear clear code = 5767-9) Glucose [Presence] in negative negative Urine by Automated test strip (test code = 01863-9) Bilirubin.total negative negative [Mass/volume] in Urine (test code = 1977-6) Ketones [Mass/volume] in negative negative Urine by Automated test strip (test code = 32744-7) Specific gravity of Urine 1.014 1.003-1.030 by Automated test strip (test code = 05930-2) blood urine (test code = negative negative blood urine) pH of Urine (test code = 5.500 5-9 2756-5) protein urine (UA) (test trace negative code = protein urine (UA)) Urobilinogen [Presence] normal 0.2-1.0 in Urine (test code = 25832-4) Nitrite [Presence] in negative negative Urine by Test strip (test code = 5802-4) Leukocyte esterase negative negative [Presence] in Urine by Automated test strip (test code = 14167-3) Erythrocytes [#/volume] <1 0-5 in Urine by Automated count (test code = 798-9) Leukocytes [#/area] in <1 0-5 Urine sediment by Automated count (test code = 49122-7) Epithelial cells <1 0-5 [Presence] in Urine sediment by Light microscopy (test code = 48893-1) Bacteria identified in none detected none detect Urine by Culture (test code = 630-4) Casts [#/area] in Urine =6-10 none detect H sediment by Automated count (test code = 89827-1) urine culture added? no (test code = urine culture added?) Pathologic casts coarse granular 1-5 none detect A [Presence] in Urine by Automated (test code = 79057-3) [facility] W Auto Differential panel - [id number] 11:00:00 Test Item Value Reference Range Interpretation Comments white blood count (test code = 6.9 K/uL 4.0-12.3 white blood count) red blood count (test code = red 2.96 M/uL 3.80-5.80 L blood count) hemoglobin (test code = 9.0 g/dL 11.7-17.2 L hemoglobin) hematocrit (test code = 28.4 % 35.0-51.0 L hematocrit) MCV [Entitic volume] (test code = 95.9 fL 83-100 65662-5) mean corpuscular hemoglobin (test 30.4 pg 26.8-33.4 code = mean corpuscular hemoglobin) mean corpuscular HGB conc (test 31.7 g/dL 30-35 code = mean corpuscular HGB conc) red cell distribution width (test 15.2 % 12.0-14.0 H code = red cell distribution width) platelet count (test code = 232 K/uL 175-450 platelet count) mean platelet volume (test code = 9.4 fL 9.4-12.6 mean platelet volume) Segmented neutrophils/100 72.3 % 44.7-82.4 leukocytes in Blood (test code = 66856-1) Immature granulocytes [#/volume] 0.0 K/uL 0.0-0.03 in Blood (test code = 45700-2) lymphocyte% (test code = 16.9 % 10.0-50.0 lymphocyte%) mono % (test code = mono %) 9.8 % 3.9-13.4 eos % (test code = eos %) 0.4 % 0.0-6.4 Basophils/100 leukocytes in 0.3 % 0.2-1.2 Unspecified specimen (test code = 39059-0) Band form neutrophils [#/volume] 5.01 K/uL 1.78-5.38 in Blood (test code = 77584-5) Lymphocytes [#/volume] in 1.2 K/uL 1.32-3.57 L Unspecified specimen by Automated count (test code = 15594-3) mono # (test code = mono #) 0.68 K/uL 0.30-0.82 eos # (test code = eos #) 0.03 K/uL 0.04-0.54 L basophil # (test code = basophil 0.02 K/uL 0.01-0.08 #) NRBC% (test code = NRBC%) 0 /100 WBC 0-0.2 NRBC# (test code = NRBC#) 0 K/uL [facility] SystemDifferential panel, method unspecified - [id number] 11:00:00NeutrophilsBandLymphocyteAtypical LymphMonocyteEosinophilBasophilDifferential CommentAbs Neutrophil Count (Man)Abs Lymph Count (Man)Abs Monocyte Count (Man)Abs Eosinophil Count (Man)Abs Basophil Count (Man)Platelet EstimatePlatelet MorphologyHypochromasiaAnisocytosisSmudge CellsMatagoClaiborne County Medical CenterPT/[id number] 11:00:00 Test Item Value Reference Range Interpretation Comments prothrombin time (test code = 10.8 seconds 10.3-12.3 prothrombin time) INR in Blood by Coagulation 1.01 assay (test code = 26167-6) [facility] Systempartial thromboplastin [id number] 11:00:00 Test Item Value Reference Range Interpretation Comments INR in Blood by Coagulation 27.2 seconds 22.5-37.0 assay (test code = 10026-2) [facility] SystemComprehensive metabolic 2000 panel - Serum or Plasma 2021-05-31 11:00:00 Test Item Value Reference Range Interpretation Comments Glucose [Mass/volume] in Serum or 127 mg/dL 82-115 H Plasma (test code = 2345-7) Urea nitrogen [Mass/volume] in 81 mg/dL 8-23 H Serum or Plasma (test code = 3094-0) osmolality calculated,serum (test 302 mOsm/kg 280-300 H code = osmolality calculated,serum) creatinine (test code = 3.0 mg/dL 0.70-1.20 H creatinine) glomerular filtration rate (test 20.18 L code = glomerular filtration rate) Urea nitrogen/Creatinine [Mass 27.0 12-20 H Ratio] in Serum or Plasma (test code = 3097-3) sodium level (test code = sodium 138 mmol/L 135-145 level) potassium level (test code = 4.0 mmol/L 3.5-5.2 potassium level) chloride level (test code = 103 mmol/L 98-108 chloride level) CO2 (test code = CO2) 22 mmol/L 21-32 anion gap (test code = anion gap) 17.0 mEq/L 12-20 calcium level (test code = 9.4 mg/dL 8.8-10.2 calcium level) total protein (test code = total 6.9 g/dL 6.6-8.7 protein) albumin (test code = albumin) 3.7 g/dL 3.5-5.2 globulin (test code = globulin) 3.2 gm/dL A/G ratio (test code = A/G ratio) 1.2 >1.0 bilirubin,total (test code = 0.3 mg/dL 0.0-1.2 bilirubin,total) AST/SGOT (test code = AST/SGOT) 11 U/L 15-40 L Alanine aminotransferase 4 U/L 0-41 [Enzymatic activity/volume] in Serum or Plasma (test code = 1742-6) Alkaline phosphatase [Enzymatic 93 U/L 40-130 activity/volume] in Serum or Plasma (test code = 6768-6) [facility] SystemMagnesium [Moles/volume] in Unspecified specimen 2021-05-31 11:00:00 Test Item Value Reference Range Interpretation Comments magnesium level (test code = 1.8 mg/dL 1.6-2.4 magnesium level) [facility] SystemLipase [Enzymatic activity/volume] in Serum or Plasma 2021-05-31 11:00:00 Test Item Value Reference Range Interpretation Comments lipase (test code = lipase) 20 U/L 13-60 [facility] SystemCreatine kinase [Enzymatic activity/volume] in Serum or [id number] 11:00:00 Test Item Value Reference Range Interpretation Comments creatine kinase (test code = creatine 24 U/L 20-200 kinase) [facility] SystemNatriuretic peptide.B prohormone N-Terminal [Mass/volume] in Serum or [id number] 11:00:00 Test Item Value Reference Range Interpretation Comments N-term pro natriuretic peptide 3052 pg/mL 0-450 H (test code = N-term pro natriuretic peptide) [facility] SystemTroponin I.cardiac [Mass/volume] in [id number] 11:00:00 Test Item Value Reference Range Interpretation Comments cardiac troponin I (test code = cardiac <0.30 0.0-0.5 troponin I) [facility] SystemCreatine kinase.MB [Mass/volume] in Serum or Plasma 2021-05-31 11:00:00 Test Item Value Reference Range Interpretation Comments Creatine kinase.MB [Mass/volume] in <1.0 0.0-3.6 Serum or Plasma by Immunoassay (test code = 00263-6) [facility] SystemBlood type and Indirect antibody screen panel - Blood 2021-05-31 11:00:00 Test Item Value Reference Range Interpretation Comments Rh [Type] in Blood (test code = 4+ 85973-5) ABO and Rh group panel - Blood A positive (test code = 53677-7) [facility] W Auto Differential panel - [id number] 11:00:00 Test Item Value Reference Range Interpretation Comments white blood count (test code = 6.9 K/uL 4.0-12.3 white blood count) red blood count (test code = red 2.96 M/uL 3.80-5.80 L blood count) hemoglobin (test code = 9.0 g/dL 11.7-17.2 L hemoglobin) hematocrit (test code = 28.4 % 35.0-51.0 L hematocrit) MCV [Entitic volume] (test code = 95.9 fL 83-100 51091-1) mean corpuscular hemoglobin (test 30.4 pg 26.8-33.4 code = mean corpuscular hemoglobin) mean corpuscular HGB conc (test 31.7 g/dL 30-35 code = mean corpuscular HGB conc) red cell distribution width (test 15.2 % 12.0-14.0 H code = red cell distribution width) platelet count (test code = 232 K/uL 175-450 platelet count) mean platelet volume (test code = 9.4 fL 9.4-12.6 mean platelet volume) Segmented neutrophils/100 72.3 % 44.7-82.4 leukocytes in Blood (test code = 77707-7) Immature granulocytes [#/volume] 0.0 K/uL 0.0-0.03 in Blood (test code = 93932-1) lymphocyte% (test code = 16.9 % 10.0-50.0 lymphocyte%) mono % (test code = mono %) 9.8 % 3.9-13.4 eos % (test code = eos %) 0.4 % 0.0-6.4 Basophils/100 leukocytes in 0.3 % 0.2-1.2 Unspecified specimen (test code = 87525-6) Band form neutrophils [#/volume] 5.01 K/uL 1.78-5.38 in Blood (test code = 58384-1) Lymphocytes [#/volume] in 1.2 K/uL 1.32-3.57 L Unspecified specimen by Automated count (test code = 33049-5) mono # (test code = mono #) 0.68 K/uL 0.30-0.82 eos # (test code = eos #) 0.03 K/uL 0.04-0.54 L basophil # (test code = basophil 0.02 K/uL 0.01-0.08 #) NRBC% (test code = NRBC%) 0 /100 WBC 0-0.2 NRBC# (test code = NRBC#) 0 K/uL [facility] SystemDifferential panel, method unspecified - [id number] 11:00:00NeutrophilsBandLymphocyteAtypical LymphMonocyteEosinophilBasophilDifferential CommentAbs Neutrophil Count (Man)Abs Lymph Count (Man)Abs Monocyte Count (Man)Abs Eosinophil Count (Man)Abs Basophil Count (Man)Platelet EstimatePlatelet MorphologyHypochromasiaAnisocytosisSmudge CellsGulfport [facility] Health SystemPT/[id number] 11:00:00 Test Item Value Reference Range Interpretation Comments prothrombin time (test code = 10.8 seconds 10.3-12.3 prothrombin time) INR in Blood by Coagulation 1.01 assay (test code = 84036-4) [facility] Systempartial thromboplastin [id number] 11:00:00 Test Item Value Reference Range Interpretation Comments INR in Blood by Coagulation 27.2 seconds 22.5-37.0 assay (test code = 46851-6) [facility] SystemComprehensive metabolic 2000 panel - Serum or Plasma 2021-05-31 11:00:00 Test Item Value Reference Range Interpretation Comments Glucose [Mass/volume] in Serum or 127 mg/dL 82-115 H Plasma (test code = 2345-7) Urea nitrogen [Mass/volume] in 81 mg/dL 8-23 H Serum or Plasma (test code = 3094-0) osmolality calculated,serum (test 302 mOsm/kg 280-300 H code = osmolality calculated,serum) creatinine (test code = 3.0 mg/dL 0.70-1.20 H creatinine) glomerular filtration rate (test 20.18 L code = glomerular filtration rate) Urea nitrogen/Creatinine [Mass 27.0 12-20 H Ratio] in Serum or Plasma (test code = 3097-3) sodium level (test code = sodium 138 mmol/L 135-145 level) potassium level (test code = 4.0 mmol/L 3.5-5.2 potassium level) chloride level (test code = 103 mmol/L 98-108 chloride level) CO2 (test code = CO2) 22 mmol/L 21-32 anion gap (test code = anion gap) 17.0 mEq/L 12-20 calcium level (test code = 9.4 mg/dL 8.8-10.2 calcium level) total protein (test code = total 6.9 g/dL 6.6-8.7 protein) albumin (test code = albumin) 3.7 g/dL 3.5-5.2 globulin (test code = globulin) 3.2 gm/dL A/G ratio (test code = A/G ratio) 1.2 >1.0 bilirubin,total (test code = 0.3 mg/dL 0.0-1.2 bilirubin,total) AST/SGOT (test code = AST/SGOT) 11 U/L 15-40 L Alanine aminotransferase 4 U/L 0-41 [Enzymatic activity/volume] in Serum or Plasma (test code = 1742-6) Alkaline phosphatase [Enzymatic 93 U/L 40-130 activity/volume] in Serum or Plasma (test code = 6768-6) [facility] GroupMagnesium [Moles/volume] in Unspecified specimen 2021-05-31 11:00:00 Test Item Value Reference Range Interpretation Comments magnesium level (test code = 1.8 mg/dL 1.6-2.4 magnesium level) [facility] GroupLipase [Enzymatic activity/volume] in Serum or Plasma 2021-05-31 11:00:00 Test Item Value Reference Range Interpretation Comments lipase (test code = lipase) 20 U/L 13-60 [facility] SystemCreatine kinase [Enzymatic activity/volume] in Serum or [id number] 11:00:00 Test Item Value Reference Range Interpretation Comments creatine kinase (test code = creatine 24 U/L 20-200 kinase) [facility] SystemNatriuretic peptide.B prohormone N-Terminal [Mass/volume] in Serum or [id number] 11:00:00 Test Item Value Reference Range Interpretation Comments N-term pro natriuretic peptide 3052 pg/mL 0-450 H (test code = N-term pro natriuretic peptide) [facility] GroupTroponin I.cardiac [Mass/volume] in [id number] 11:00:00 Test Item Value Reference Range Interpretation Comments cardiac troponin I (test code = cardiac <0.30 0.0-0.5 troponin I) [facility] SystemCreatine kinase.MB [Mass/volume] in Serum or Plasma 2021-05-31 11:00:00 Test Item Value Reference Range Interpretation Comments Creatine kinase.MB [Mass/volume] in <1.0 0.0-3.6 Serum or Plasma by Immunoassay (test code = 76634-4) [facility] SystemBlood type and Indirect antibody screen panel - Blood 2021-05-31 11:00:00 Test Item Value Reference Range Interpretation Comments Rh [Type] in Blood (test code = 4+ 60982-5) ABO and Rh group panel - Blood A positive (test code = 49033-9) [facility] SystemBacteria identified in Wound by [id number] 09:00:00ResultsGulfport Behavioral Health Systemantibiotic sensitivity testing, isolate 2021-05-31 09:00:00 Test Item Value Reference Range Interpretation Comments Gentamicin [Susceptibility] by <2 Minimum inhibitory concentration (KAUSHIK) (test code = 267-5) Ampicillin [Susceptibility] by >16 Minimum inhibitory concentration (KAUSHKI) (test code = 28-1) Trimethoprim+Sulfamethoxazole =2/38 [Susceptibility] by Minimum inhibitory concentration (KAUSHIK) (test code = 516-5) Tetracycline [Susceptibility] by >8 Minimum inhibitory concentration (KAUSHIK) (test code = 496-0) Amoxicillin+Clavulanate =16/8 [Susceptibility] by Minimum inhibitory concentration (KAUSHIK) (test code = 20-8) Tobramycin [Susceptibility] by 8 ug/mL Minimum inhibitory concentration (KAUSHIK) (test code = 508-2) Nitrofurantoin [Susceptibility] by >64 Minimum inhibitory concentration (KAUSHIK) (test code = 363-2) Cefotaxime [Susceptibility] by <2 Minimum inhibitory concentration (KAUSHIK) (test code = 108-1) Cefepime [Susceptibility] by Minimum <8 inhibitory concentration (KAUSHIK) (test code = 6644-9) levoFLOXacin [Susceptibility] by <2 Minimum inhibitory concentration (KAUSHIK) (test code = 11694-3) Piperacillin+Tazobactam <16 [Susceptibility] by Minimum inhibitory concentration (KAUSHIK) (test code = 412-7) cefTAZidime [Susceptibility] by <1 Minimum inhibitory concentration (KAUSHIK) (test code = 133-9) cefTRIAXone [Susceptibility] by <1 Minimum inhibitory concentration (KAUSHIK) (test code = 141-2) Ciprofloxacin [Susceptibility] by <1 Minimum inhibitory concentration (KAUSHIK) (test code = 185-9) Imipenem [Susceptibility] by Minimum <1 inhibitory concentration (KAUSHIK) (test code = 279-0) Ampicillin+Sulbactam [Susceptibility] =16/8 by Minimum inhibitory concentration (KAUSHIK) (test code = 32-3) Ertapenem [Susceptibility] by Minimum <0.5 inhibitory concentration (KAUSHIK) (test code = 69366-4) Aztreonam [Susceptibility] by Minimum <4 inhibitory concentration (KAUSHIK) (test code = 44-8) Cefuroxime [Susceptibility] by >16 Minimum inhibitory concentration (KAUSHIK) (test code = 77393-7) [facility] Systemantibiotic sensitivity testing, [id number] 09:00:00 Test Item Value Reference Range Interpretation Comments Gentamicin [Susceptibility] by <4 Minimum inhibitory concentration (KAUSHIK) (test code = 267-5) Ampicillin [Susceptibility] by >8 Minimum inhibitory concentration (KAUSHIK) (test code = 28-1) ceFAZolin [Susceptibility] by <8 Minimum inhibitory concentration (KAUSHIK) (test code = 76-0) Oxacillin [Susceptibility] by >2 Minimum inhibitory concentration (KAUSHIK) (test code = 383-0) Penicillin [Susceptibility] by >8 Minimum inhibitory concentration (KAUSHIK) (test code = 6932-8) Trimethoprim+Sulfamethoxazole =2/38 [Susceptibility] by Minimum inhibitory concentration (KAUSHIK) (test code = 516-5) Tetracycline [Susceptibility] by >8 Minimum inhibitory concentration (KAUSHIK) (test code = 496-0) Amoxicillin+Clavulanate =4/2 [Susceptibility] by Minimum inhibitory concentration (KAUSHIK) (test code = 20-8) Clindamycin [Susceptibility] by >2 Minimum inhibitory concentration (KAUSHIK) (test code = 193-3) Nitrofurantoin [Susceptibility] by 64 ug/mL Minimum inhibitory concentration (KAUSHIK) (test code = 363-2) Erythromycin [Susceptibility] by >4 Minimum inhibitory concentration (KAUSHIK) (test code = 233-7) Vancomycin [Susceptibility] by 1 ug/mL Minimum inhibitory concentration (KAUSHIK) (test code = 524-9) levoFLOXacin [Susceptibility] by >4 Minimum inhibitory concentration (KAUSHIK) (test code = 41334-8) Ciprofloxacin [Susceptibility] by >2 Minimum inhibitory concentration (KAUSHIK) (test code = 185-9) Ampicillin+Sulbactam =8/4 [Susceptibility] by Minimum inhibitory concentration (KAUSHIK) (test code = 32-3) Linezolid [Susceptibility] by <2 Minimum inhibitory concentration (KAUSHIK) (test code = 18160-0) Azithromycin [Susceptibility] by >4 Minimum inhibitory concentration (KAUSHIK) (test code = 36-4) DAPTOmycin [Susceptibility] by <1 Minimum inhibitory concentration (KAUSHIK) (test code = 80308-6) rifAMPin [Susceptibility] by Minimum <1 inhibitory concentration (KAUSHIK) (test code = 428-3) [facility] identified [facility] Wound by [id number] 09:00[facility]00[facility], [facility] 2021-05-31 09:00:00 Test Item Value Reference Range Interpretation Comments Gentamicin [Susceptibility] by <2 Minimum inhibitory concentration (KAUSHIK) (test code = 267-5) Ampicillin [Susceptibility] by >16 Minimum inhibitory concentration (KAUSHIK) (test code = 28-1) Trimethoprim+Sulfamethoxazole =2/38 [Susceptibility] by Minimum inhibitory concentration (KAUSHIK) (test code = 516-5) Tetracycline [Susceptibility] by >8 Minimum inhibitory concentration (KAUSHIK) (test code = 496-0) Amoxicillin+Clavulanate =16/8 [Susceptibility] by Minimum inhibitory concentration (KAUSHIK) (test code = 20-8) Tobramycin [Susceptibility] by 8 ug/mL Minimum inhibitory concentration (KAUSHIK) (test code = 508-2) Nitrofurantoin [Susceptibility] by >64 Minimum inhibitory concentration (KAUSHIK) (test code = 363-2) Cefotaxime [Susceptibility] by <2 Minimum inhibitory concentration (KAUSHIK) (test code = 108-1) Cefepime [Susceptibility] by Minimum <8 inhibitory concentration (KAUSHIK) (test code = 6644-9) levoFLOXacin [Susceptibility] by <2 Minimum inhibitory concentration (KAUSHIK) (test code = 06223-6) Piperacillin+Tazobactam <16 [Susceptibility] by Minimum inhibitory concentration (KAUSHIK) (test code = 412-7) cefTAZidime [Susceptibility] by <1 Minimum inhibitory concentration (KAUSHIK) (test code = 133-9) cefTRIAXone [Susceptibility] by <1 Minimum inhibitory concentration (KAUSHIK) (test code = 141-2) Ciprofloxacin [Susceptibility] by <1 Minimum inhibitory concentration (KAUSHIK) (test code = 185-9) Imipenem [Susceptibility] by Minimum <1 inhibitory concentration (KAUSHIK) (test code = 279-0) Ampicillin+Sulbactam [Susceptibility] =16/8 by Minimum inhibitory concentration (KAUSHIK) (test code = 32-3) Ertapenem [Susceptibility] by Minimum <0.5 inhibitory concentration (KAUSHIK) (test code = 61015-4) Aztreonam [Susceptibility] by Minimum <4 inhibitory concentration (KAUSHIK) (test code = 44-8) Cefuroxime [Susceptibility] by >16 Minimum inhibitory concentration (KAUSHIK) (test code = 55328-9) [facility], [id number] 09:00:00 Test Item Value Reference Range Interpretation Comments Gentamicin [Susceptibility] by <4 Minimum inhibitory concentration (KAUSHIK) (test code = 267-5) Ampicillin [Susceptibility] by >8 Minimum inhibitory concentration (KAUSHIK) (test code = 28-1) ceFAZolin [Susceptibility] by <8 Minimum inhibitory concentration (KAUSHIK) (test code = 76-0) Oxacillin [Susceptibility] by >2 Minimum inhibitory concentration (KAUSHIK) (test code = 383-0) Penicillin [Susceptibility] by >8 Minimum inhibitory concentration (KAUSHIK) (test code = 6932-8) Trimethoprim+Sulfamethoxazole =2/38 [Susceptibility] by Minimum inhibitory concentration (KAUSHIK) (test code = 516-5) Tetracycline [Susceptibility] by >8 Minimum inhibitory concentration (KAUSHIK) (test code = 496-0) Amoxicillin+Clavulanate =4/2 [Susceptibility] by Minimum inhibitory concentration (KAUSHIK) (test code = 20-8) Clindamycin [Susceptibility] by >2 Minimum inhibitory concentration (KAUSHIK) (test code = 193-3) Nitrofurantoin [Susceptibility] by 64 ug/mL Minimum inhibitory concentration (KAUSHIK) (test code = 363-2) Erythromycin [Susceptibility] by >4 Minimum inhibitory concentration (KAUSHIK) (test code = 233-7) Vancomycin [Susceptibility] by 1 ug/mL Minimum inhibitory concentration (KAUSHIK) (test code = 524-9) levoFLOXacin [Susceptibility] by >4 Minimum inhibitory concentration (KAUSHIK) (test code = 12102-0) Ciprofloxacin [Susceptibility] by >2 Minimum inhibitory concentration (KAUSHIK) (test code = 185-9) Ampicillin+Sulbactam =8/4 [Susceptibility] by Minimum inhibitory concentration (KAUSHIK) (test code = 32-3) Linezolid [Susceptibility] by <2 Minimum inhibitory concentration (KAUSHIK) (test code = 49770-1) Azithromycin [Susceptibility] by >4 Minimum inhibitory concentration (KAUSHIK) (test code = 36-4) DAPTOmycin [Susceptibility] by <1 Minimum inhibitory concentration (KAUSHIK) (test code = 96826-4) rifAMPin [Susceptibility] by Minimum <1 inhibitory concentration (KAUSHIK) (test code = 428-3) [facility] GroupLactate [Mass/volume] in Serum or [id number] 07:20:00 Test Item Value Reference Range Interpretation Comments lactic acid (test code = lactic 0.58 mmol/L 0.5-2.2 acid) [facility] metabolic 2000 panel - Serum or [id number] 07:20:00 Test Item Value Reference Range Interpretation Comments glucose (test code = glucose) 114 mg/dL 82-115 Urea nitrogen [Mass/volume] in 83 mg/dL 8-23 H Serum or Plasma (test code = 3094-0) osmolality calculated,serum (test 302 mOsm/kg 280-300 H code = osmolality calculated,serum) creatinine (test code = 2.5 mg/dL 0.70-1.20 H creatinine) glomerular filtration rate (test 24.91 L code = glomerular filtration rate) Urea nitrogen/Creatinine [Mass 33.2 12-20 H Ratio] in Serum or Plasma (test code = 3097-3) sodium level (test code = sodium 138 mmol/L 135-145 level) Potassium [Moles/volume] in Body 4.2 mmol/L 3.5-5.2 fluid (test code = 2821-7) chloride level (test code = 106 mmol/L 98-108 chloride level) CO2 (test code = CO2) 22 mmol/L 21-32 anion gap (test code = anion gap) 14.2 mEq/L 12-20 calcium level (test code = 8.9 mg/dL 8.8-10.2 calcium level) [facility] GroupLactate [Mass/volume] in Serum or [id number] 07:20:00 Test Item Value Reference Range Interpretation Comments lactic acid (test code = lactic 0.58 mmol/L 0.5-2.2 acid) [facility] metabolic 2000 panel - Serum or [id number] 07:20:00 Test Item Value Reference Range Interpretation Comments glucose (test code = glucose) 114 mg/dL 82-115 Urea nitrogen [Mass/volume] in 83 mg/dL 8-23 H Serum or Plasma (test code = 3094-0) osmolality calculated,serum (test 302 mOsm/kg 280-300 H code = osmolality calculated,serum) creatinine (test code = 2.5 mg/dL 0.70-1.20 H creatinine) glomerular filtration rate (test 24.91 L code = glomerular filtration rate) Urea nitrogen/Creatinine [Mass 33.2 12-20 H Ratio] in Serum or Plasma (test code = 3097-3) sodium level (test code = sodium 138 mmol/L 135-145 level) Potassium [Moles/volume] in Body 4.2 mmol/L 3.5-5.2 fluid (test code = 2821-7) chloride level (test code = 106 mmol/L 98-108 chloride level) CO2 (test code = CO2) 22 mmol/L 21-32 anion gap (test code = anion gap) 14.2 mEq/L 12-20 calcium level (test code = 8.9 mg/dL 8.8-10.2 calcium level) [facility] Auto Differential panel - [id number] 05:31:00 Test Item Value Reference Range Interpretation Comments white blood count (test code = 7.5 K/uL 4.0-12.3 white blood count) red blood count (test code = red 3.11 M/uL 3.80-5.80 L blood count) hemoglobin (test code = 9.5 g/dL 11.7-17.2 L hemoglobin) hematocrit (test code = 29.9 % 35.0-51.0 L hematocrit) MCV [Entitic volume] (test code = 96.1 fL 83-100 60961-6) mean corpuscular hemoglobin (test 30.5 pg 26.8-33.4 code = mean corpuscular hemoglobin) mean corpuscular HGB conc (test 31.8 g/dL 30-35 code = mean corpuscular HGB conc) red cell distribution width (test 15.6 % 12.0-14.0 H code = red cell distribution width) platelet count (test code = 235 K/uL 175-450 platelet count) mean platelet volume (test code = 9.2 fL 9.4-12.6 L mean platelet volume) Segmented neutrophils/100 70.5 % 44.7-82.4 leukocytes in Blood (test code = 75676-0) Immature granulocytes [#/volume] 0.0 K/uL 0.0-0.03 H in Blood (test code = 75449-2) lymphocyte% (test code = 19.4 % 10.0-50.0 lymphocyte%) mono % (test code = mono %) 8.0 % 3.9-13.4 eos % (test code = eos %) 1.3 % 0.0-6.4 Basophils/100 leukocytes in 0.3 % 0.2-1.2 Unspecified specimen (test code = 07834-3) Band form neutrophils [#/volume] 5.27 K/uL 1.78-5.38 in Blood (test code = 05216-8) Lymphocytes [#/volume] in 1.5 K/uL 1.32-3.57 Unspecified specimen by Automated count (test code = 55171-8) mono # (test code = mono #) 0.60 K/uL 0.30-0.82 eos # (test code = eos #) 0.10 K/uL 0.04-0.54 basophil # (test code = basophil 0.02 K/uL 0.01-0.08 #) NRBC% (test code = NRBC%) 0 /100 WBC 0-0.2 NRBC# (test code = NRBC#) 0 K/uL [facility] SystemDifferential panel, method unspecified - [id number] 05:31:00NeutrophilsBandLymphocyteAtypical LymphMonocyteEosinophilBasophilMetamyelocyteAbs Neutrophil Count (Man)Abs Lymph Count (Man)Abs Monocyte Count (Man)Abs Eosinophil Count (Man)Abs Basophil Count (Man)Platelet EstimatePlatelet MorphologyPolychromasiaHypochromasiaPoikilocytosisAnisocytosisMicrocytosisMacr ocytosisTarget CellsTear Drop CellsOvalocytesToxic GranulationToxic VacuolationSmudge CellsGulfport Behavioral Health SystemPT/[id number] 05:31:00 Test Item Value Reference Range Interpretation Comments prothrombin time (test code = 10.8 seconds 10.3-12.3 prothrombin time) INR in Blood by Coagulation 1.01 assay (test code = 54026-3) [facility] Systempartial thromboplastin [id number] 05:31:00 Test Item Value Reference Range Interpretation Comments INR in Blood by Coagulation 27.5 seconds 22.5-37.0 assay (test code = 43635-6) [facility] SystemTroponin I.cardiac [Mass/volume] in [id number] 05:31:00 Test Item Value Reference Range Interpretation Comments cardiac troponin I (test code = cardiac <0.30 0.0-0.5 troponin I) [facility] SystemCreatine kinase.MB [Mass/volume] in Serum or Plasma 2021-05-27 05:31:00 Test Item Value Reference Range Interpretation Comments Creatine kinase.MB [Mass/volume] in 1.2 NG/mL 0.0-3.6 Serum or Plasma by Immunoassay (test code = 28995-0) [facility] SystemComprehensive metabolic 2000 panel - Serum or Plasma 2021-05-27 05:31:00 Test Item Value Reference Range Interpretation Comments Glucose [Mass/volume] in Serum or 111 mg/dL 82-115 Plasma (test code = 2345-7) Urea nitrogen [Mass/volume] in 94 mg/dL 8-23 H Serum or Plasma (test code = 3094-0) osmolality calculated,serum (test 302 mOsm/kg 280-300 H code = osmolality calculated,serum) creatinine (test code = 3.1 mg/dL 0.70-1.20 H creatinine) glomerular filtration rate (test 19.44 L code = glomerular filtration rate) Urea nitrogen/Creatinine [Mass 30.3 12-20 H Ratio] in Serum or Plasma (test code = 3097-3) sodium level (test code = sodium 136 mmol/L 135-145 level) potassium level (test code = 3.8 mmol/L 3.5-5.2 potassium level) chloride level (test code = 103 mmol/L 98-108 chloride level) CO2 (test code = CO2) 20 mmol/L 21-32 L anion gap (test code = anion gap) 16.8 mEq/L 12-20 calcium level (test code = 9.2 mg/dL 8.8-10.2 calcium level) total protein (test code = total 7.2 g/dL 6.6-8.7 protein) albumin (test code = albumin) 4.0 g/dL 3.5-5.2 globulin (test code = globulin) 3.2 gm/dL A/G ratio (test code = A/G ratio) 1.3 >1.0 bilirubin,total (test code = 0.3 mg/dL 0.0-1.2 bilirubin,total) AST/SGOT (test code = AST/SGOT) 10 U/L 15-40 L Alanine aminotransferase 4 U/L 0-41 [Enzymatic activity/volume] in Serum or Plasma (test code = 1742-6) Alkaline phosphatase [Enzymatic 90 U/L 40-130 activity/volume] in Serum or Plasma (test code = 6768-6) [facility] SystemMagnesium [Moles/volume] in Unspecified specimen 2021-05-27 05:31:00 Test Item Value Reference Range Interpretation Comments magnesium level (test code = 1.8 mg/dL 1.6-2.4 magnesium level) [facility] SystemAmylase [Enzymatic activity/volume] in Serum or Plasma 2021-05-27 05:31:00 Test Item Value Reference Range Interpretation Comments Amylase [Enzymatic activity/volume] in 67 U/L 28-100 Serum or Plasma (test code = 1798-8) [facility] SystemLipase [Enzymatic activity/volume] in Serum or Plasma 2021-05-27 05:31:00 Test Item Value Reference Range Interpretation Comments lipase (test code = lipase) 25 U/L 13-60 [facility] SystemCreatine kinase [Enzymatic activity/volume] in Serum or [id number] 05:31:00 Test Item Value Reference Range Interpretation Comments creatine kinase (test code = creatine 27 U/L 20-200 kinase) [facility] W Auto Differential panel - [id number] 05:31:00 Test Item Value Reference Range Interpretation Comments white blood count (test code = 7.5 K/uL 4.0-12.3 white blood count) red blood count (test code = red 3.11 M/uL 3.80-5.80 L blood count) hemoglobin (test code = 9.5 g/dL 11.7-17.2 L hemoglobin) hematocrit (test code = 29.9 % 35.0-51.0 L hematocrit) MCV [Entitic volume] (test code = 96.1 fL 83-100 96685-6) mean corpuscular hemoglobin (test 30.5 pg 26.8-33.4 code = mean corpuscular hemoglobin) mean corpuscular HGB conc (test 31.8 g/dL 30-35 code = mean corpuscular HGB conc) red cell distribution width (test 15.6 % 12.0-14.0 H code = red cell distribution width) platelet count (test code = 235 K/uL 175-450 platelet count) mean platelet volume (test code = 9.2 fL 9.4-12.6 L mean platelet volume) Segmented neutrophils/100 70.5 % 44.7-82.4 leukocytes in Blood (test code = 11418-9) Immature granulocytes [#/volume] 0.0 K/uL 0.0-0.03 H in Blood (test code = 38001-0) lymphocyte% (test code = 19.4 % 10.0-50.0 lymphocyte%) mono % (test code = mono %) 8.0 % 3.9-13.4 eos % (test code = eos %) 1.3 % 0.0-6.4 Basophils/100 leukocytes in 0.3 % 0.2-1.2 Unspecified specimen (test code = 45225-7) Band form neutrophils [#/volume] 5.27 K/uL 1.78-5.38 in Blood (test code = 94875-5) Lymphocytes [#/volume] in 1.5 K/uL 1.32-3.57 Unspecified specimen by Automated count (test code = 60966-2) mono # (test code = mono #) 0.60 K/uL 0.30-0.82 eos # (test code = eos #) 0.10 K/uL 0.04-0.54 basophil # (test code = basophil 0.02 K/uL 0.01-0.08 #) NRBC% (test code = NRBC%) 0 /100 WBC 0-0.2 NRBC# (test code = NRBC#) 0 K/uL [facility] SystemDifferential panel, method unspecified - [id number] 05:31:00NeutrophilsBandLymphocyteAtypical LymphMonocyteEosinophilBasophilMetamyelocyteAbs Neutrophil Count (Man)Abs Lymph Count (Man)Abs Monocyte Count (Man)Abs Eosinophil Count (Man)Abs Basophil Count (Man)Platelet EstimatePlatelet MorphologyPolychromasiaHypochromasiaPoikilocytosisAnisocytosisMicrocytosisMacr ocytosisTarget CellsTear Drop CellsOvalocytesToxic GranulationToxic VacuolationSmudge CellsMagoClaiborne County Medical CenterPT/[id number] 05:31:00 Test Item Value Reference Range Interpretation Comments prothrombin time (test code = 10.8 seconds 10.3-12.3 prothrombin time) INR in Blood by Coagulation 1.01 assay (test code = 39738-8) [facility] Systempartial thromboplastin [id number] 05:31:00 Test Item Value Reference Range Interpretation Comments INR in Blood by Coagulation 27.5 seconds 22.5-37.0 assay (test code = 90183-2) [facility] SystemTroponin I.cardiac [Mass/volume] in [id number] 05:31:00 Test Item Value Reference Range Interpretation Comments cardiac troponin I (test code = cardiac <0.30 0.0-0.5 troponin I) [facility] SystemCreatine kinase.MB [Mass/volume] in Serum or Plasma 2021-05-27 05:31:00 Test Item Value Reference Range Interpretation Comments Creatine kinase.MB [Mass/volume] in 1.2 NG/mL 0.0-3.6 Serum or Plasma by Immunoassay (test code = 48031-9) [facility] SystemComprehensive metabolic 2000 panel - Serum or Plasma 2021-05-27 05:31:00 Test Item Value Reference Range Interpretation Comments Glucose [Mass/volume] in Serum or 111 mg/dL 82-115 Plasma (test code = 2345-7) Urea nitrogen [Mass/volume] in 94 mg/dL 8-23 H Serum or Plasma (test code = 3094-0) osmolality calculated,serum (test 302 mOsm/kg 280-300 H code = osmolality calculated,serum) creatinine (test code = 3.1 mg/dL 0.70-1.20 H creatinine) glomerular filtration rate (test 19.44 L code = glomerular filtration rate) Urea nitrogen/Creatinine [Mass 30.3 12-20 H Ratio] in Serum or Plasma (test code = 3097-3) sodium level (test code = sodium 136 mmol/L 135-145 level) potassium level (test code = 3.8 mmol/L 3.5-5.2 potassium level) chloride level (test code = 103 mmol/L 98-108 chloride level) CO2 (test code = CO2) 20 mmol/L 21-32 L anion gap (test code = anion gap) 16.8 mEq/L 12-20 calcium level (test code = 9.2 mg/dL 8.8-10.2 calcium level) total protein (test code = total 7.2 g/dL 6.6-8.7 protein) albumin (test code = albumin) 4.0 g/dL 3.5-5.2 globulin (test code = globulin) 3.2 gm/dL A/G ratio (test code = A/G ratio) 1.3 >1.0 bilirubin,total (test code = 0.3 mg/dL 0.0-1.2 bilirubin,total) AST/SGOT (test code = AST/SGOT) 10 U/L 15-40 L Alanine aminotransferase 4 U/L 0-41 [Enzymatic activity/volume] in Serum or Plasma (test code = 1742-6) Alkaline phosphatase [Enzymatic 90 U/L 40-130 activity/volume] in Serum or Plasma (test code = 6768-6) [facility] GroupMagnesium [Moles/volume] in Unspecified specimen 2021-05-27 05:31:00 Test Item Value Reference Range Interpretation Comments magnesium level (test code = 1.8 mg/dL 1.6-2.4 magnesium level) [facility] SystemAmylase [Enzymatic activity/volume] in Serum or Plasma 2021-05-27 05:31:00 Test Item Value Reference Range Interpretation Comments Amylase [Enzymatic activity/volume] in 67 U/L 28-100 Serum or Plasma (test code = 1798-8) [facility] GroupLipase [Enzymatic activity/volume] in Serum or Plasma 2021-05-27 05:31:00 Test Item Value Reference Range Interpretation Comments lipase (test code = lipase) 25 U/L 13-60 [facility]at[facility] [Enzymatic activity/volume] in Serum or [id number] 05:31:00 Test Item Value Reference Range Interpretation Comments creatine kinase (test code = creatine 27 U/L 20-200 kinase) [facility] W Auto Differential panel - [id number] 05:31:00 Test Item Value Reference Range Interpretation Comments white blood count (test code = 7.5 K/uL 4.0-12.3 white blood count) red blood count (test code = red 3.11 M/uL 3.80-5.80 L blood count) hemoglobin (test code = 9.5 g/dL 11.7-17.2 L hemoglobin) hematocrit (test code = 29.9 % 35.0-51.0 L hematocrit) MCV [Entitic volume] (test code = 96.1 fL 83-100 55677-2) mean corpuscular hemoglobin (test 30.5 pg 26.8-33.4 code = mean corpuscular hemoglobin) mean corpuscular HGB conc (test 31.8 g/dL 30-35 code = mean corpuscular HGB conc) red cell distribution width (test 15.6 % 12.0-14.0 H code = red cell distribution width) platelet count (test code = 235 K/uL 175-450 platelet count) mean platelet volume (test code = 9.2 fL 9.4-12.6 L mean platelet volume) Segmented neutrophils/100 70.5 % 44.7-82.4 leukocytes in Blood (test code = 31538-7) Immature granulocytes [#/volume] 0.0 K/uL 0.0-0.03 H in Blood (test code = 74766-6) lymphocyte% (test code = 19.4 % 10.0-50.0 lymphocyte%) mono % (test code = mono %) 8.0 % 3.9-13.4 eos % (test code = eos %) 1.3 % 0.0-6.4 Basophils/100 leukocytes in 0.3 % 0.2-1.2 Unspecified specimen (test code = 01343-0) Band form neutrophils [#/volume] 5.27 K/uL 1.78-5.38 in Blood (test code = 54866-3) Lymphocytes [#/volume] in 1.5 K/uL 1.32-3.57 Unspecified specimen by Automated count (test code = 59859-2) mono # (test code = mono #) 0.60 K/uL 0.30-0.82 eos # (test code = eos #) 0.10 K/uL 0.04-0.54 basophil # (test code = basophil 0.02 K/uL 0.01-0.08 #) NRBC% (test code = NRBC%) 0 /100 WBC 0-0.2 NRBC# (test code = NRBC#) 0 K/uL [facility] SystemDifferential panel, method unspecified - [id number] 05:31:00NeutrophilsBandLymphocyteAtypical LymphMonocyteEosinophilBasophilMetamyelocyteAbs Neutrophil Count (Man)Abs Lymph Count (Man)Abs Monocyte Count (Man)Abs Eosinophil Count (Man)Abs Basophil Count (Man)Platelet EstimatePlatelet MorphologyPolychromasiaHypochromasiaPoikilocytosisAnisocytosisMicrocytosisMacr ocytosisTarget CellsTear Drop CellsOvalocytesToxic GranulationToxic VacuolationSmudge CellsGulfport [facility]al Health SystemPT/[id number] 05:31:00 Test Item Value Reference Range Interpretation Comments prothrombin time (test code = 10.8 seconds 10.3-12.3 prothrombin time) INR in Blood by Coagulation 1.01 assay (test code = 97765-7) [facility] Systempartial thromboplastin [id number] 05:31:00 Test Item Value Reference Range Interpretation Comments INR in Blood by Coagulation 27.5 seconds 22.5-37.0 assay (test code = 46759-8) [facility] SystemTroponin I.cardiac [Mass/volume] in [id number] 05:31:00 Test Item Value Reference Range Interpretation Comments cardiac troponin I (test code = cardiac <0.30 0.0-0.5 troponin I) [facility] SystemCreatine kinase.MB [Mass/volume] in Serum or Plasma 2021-05-27 05:31:00 Test Item Value Reference Range Interpretation Comments Creatine kinase.MB [Mass/volume] in 1.2 NG/mL 0.0-3.6 Serum or Plasma by Immunoassay (test code = 84948-6) [facility] SystemComprehensive metabolic 2000 panel - Serum or Plasma 2021-05-27 05:31:00 Test Item Value Reference Range Interpretation Comments Glucose [Mass/volume] in Serum or 111 mg/dL 82-115 Plasma (test code = 2345-7) Urea nitrogen [Mass/volume] in 94 mg/dL 8-23 H Serum or Plasma (test code = 3094-0) osmolality calculated,serum (test 302 mOsm/kg 280-300 H code = osmolality calculated,serum) creatinine (test code = 3.1 mg/dL 0.70-1.20 H creatinine) glomerular filtration rate (test 19.44 L code = glomerular filtration rate) Urea nitrogen/Creatinine [Mass 30.3 12-20 H Ratio] in Serum or Plasma (test code = 3097-3) sodium level (test code = sodium 136 mmol/L 135-145 level) potassium level (test code = 3.8 mmol/L 3.5-5.2 potassium level) chloride level (test code = 103 mmol/L 98-108 chloride level) CO2 (test code = CO2) 20 mmol/L 21-32 L anion gap (test code = anion gap) 16.8 mEq/L 12-20 calcium level (test code = 9.2 mg/dL 8.8-10.2 calcium level) total protein (test code = total 7.2 g/dL 6.6-8.7 protein) albumin (test code = albumin) 4.0 g/dL 3.5-5.2 globulin (test code = globulin) 3.2 gm/dL A/G ratio (test code = A/G ratio) 1.3 >1.0 bilirubin,total (test code = 0.3 mg/dL 0.0-1.2 bilirubin,total) AST/SGOT (test code = AST/SGOT) 10 U/L 15-40 L Alanine aminotransferase 4 U/L 0-41 [Enzymatic activity/volume] in Serum or Plasma (test code = 1742-6) Alkaline phosphatase [Enzymatic 90 U/L 40-130 activity/volume] in Serum or Plasma (test code = 6768-6) [facility] SystemMagnesium [Moles/volume] in Unspecified specimen 2021-05-27 05:31:00 Test Item Value Reference Range Interpretation Comments magnesium level (test code = 1.8 mg/dL 1.6-2.4 magnesium level) [facility] SystemAmylase [Enzymatic activity/volume] in Serum or Plasma 2021-05-27 05:31:00 Test Item Value Reference Range Interpretation Comments Amylase [Enzymatic activity/volume] in 67 U/L 28-100 Serum or Plasma (test code = 1798-8) [facility] SystemLipase [Enzymatic activity/volume] in Serum or Plasma 2021-05-27 05:31:00 Test Item Value Reference Range Interpretation Comments lipase (test code = lipase) 25 U/L 13-60 [facility] SystemCreatine kinase [Enzymatic activity/volume] in Serum or [id number] 05:31:00 Test Item Value Reference Range Interpretation Comments creatine kinase (test code = creatine 27 U/L 20-200 kinase) [facility] Differential panel - [id number] 06:54:00 Test Item Value Reference Range Interpretation Comments white blood count (test code = 6.3 K/uL 4.0-12.3 white blood count) red blood count (test code = red 3.12 M/uL 3.80-5.80 L blood count) hemoglobin (test code = 9.6 g/dL 11.7-17.2 L hemoglobin) hematocrit (test code = 30.6 % 35.0-51.0 L hematocrit) MCV [Entitic volume] (test code = 98.1 fL 83-100 29294-7) mean corpuscular hemoglobin (test 30.8 pg 26.8-33.4 code = mean corpuscular hemoglobin) mean corpuscular HGB conc (test 31.4 g/dL 30-35 code = mean corpuscular HGB conc) red cell distribution width (test 15.7 % 12.0-14.0 H code = red cell distribution width) platelet count (test code = 267 K/uL 175-450 platelet count) mean platelet volume (test code = 10.1 fL 9.4-12.6 mean platelet volume) Segmented neutrophils/100 71.8 % 44.7-82.4 leukocytes in Blood (test code = 32853-1) Immature granulocytes [#/volume] 0.0 K/uL 0.0-0.03 in Blood (test code = 22921-2) lymphocyte% (test code = 18.4 % 10.0-50.0 lymphocyte%) mono % (test code = mono %) 7.4 % 3.9-13.4 eos % (test code = eos %) 1.9 % 0.0-6.4 Basophils/100 leukocytes in 0.3 % 0.2-1.2 Unspecified specimen (test code = 56212-5) Band form neutrophils [#/volume] 4.49 K/uL 1.78-5.38 in Blood (test code = 46807-6) Lymphocytes [#/volume] in 1.2 K/uL 1.32-3.57 L Unspecified specimen by Automated count (test code = 61100-3) mono # (test code = mono #) 0.46 K/uL 0.30-0.82 eos # (test code = eos #) 0.12 K/uL 0.04-0.54 basophil # (test code = basophil 0.02 K/uL 0.01-0.08 #) NRBC% (test code = NRBC%) 0 /100 WBC 0-0.2 NRBC# (test code = NRBC#) 0 K/uL [facility] method unspecified - [id number] 06:54:00NeutrophilsBandLymphocyteAtypical LymphMonocyteEosinophilBasophilMetamyelocyteAbs Neutrophil Count (Man)Abs Lymph Count (Man)Abs Monocyte Count (Man)Abs Eosinophil Count (Man)Abs Basophil Count (Man)Platelet EstimatePlatelet MorphologyHypochromasiaPoikilocytosisAnisocytosisMicrocytosisMacrocytosisTarget CellsToxic GranulationToxic VacuolationSmudge CellsMaGulfport Behavioral Health System Hemoglobin A1c [Mass/volume] in [id number] 06:54:00 Test Item Value Reference Range Interpretation Comments Hemoglobin A1c [Mass/volume] in Blood 5.1 % 4.0-6.0 (test code = 71966-3) [facility] SystemUrinal[facility] complete W Reflex Culture panel - Urine 2021-05-25 06:54:00 Test Item Value Reference Range Interpretation Comments Color of Urine by Auto (test colorless code = 47954-6) Appearance of Urine (test code clear clear = 5767-9) Glucose [Presence] in Urine by negative negative Automated test strip (test code = 51916-1) Bilirubin.total [Mass/volume] negative negative in Urine (test code = 1978-6) Ketones [Mass/volume] in Urine negative negative by Automated test strip (test code = 74164-3) Specific gravity of Urine by 1.011 1.003-1.030 Automated test strip (test code = 58681-9) blood urine (test code = blood negative negative urine) pH of Urine (test code = 5.000 5-9 2756-5) protein urine (UA) (test code = negative negative protein urine (UA)) Urobilinogen [Presence] in normal 0.2-1.0 Urine (test code = 83981-9) Nitrite [Presence] in Urine by negative negative Test strip (test code = 5802-4) Leukocyte esterase [Presence] negative negative in Urine by Automated test strip (test code = 90843-7) Erythrocytes [#/volume] in <1 0-5 Urine by Automated count (test code = 798-9) Leukocytes [#/area] in Urine <1 0-5 sediment by Automated count (test code = 00985-2) Epithelial cells [Presence] in <1 0-5 Urine sediment by Light microscopy (test code = 62499-4) Bacteria identified in Urine by none detected none detect Culture (test code = 630-4) Casts [#/area] in Urine none detected none detect sediment by Automated count (test code = 06287-6) urine culture added? (test code no = urine culture added?) [facility] SystemThyrotropin [Units/volume] in Serum or [id number] 06:54:00 Test Item Value Reference Range Interpretation Comments Thyrotropin [Units/volume] in 0.30 uIU/mL 0.36-3.74 L Serum or Plasma (test code = 3016-3) [facility] SystemPT/[id number] 06:54:00 Test Item Value Reference Range Interpretation Comments prothrombin time (test code = 10.9 seconds 10.3-12.3 prothrombin time) INR in Blood by Coagulation 1.02 assay (test code = 22060-9) [facility] Systempartial thromboplastin [id number] 06:54:00 Test Item Value Reference Range Interpretation Comments INR in Blood by Coagulation 27.4 seconds 22.5-37.0 assay (test code = 88756-4) [facility] SystemComprehensive metabolic 2000 panel - Serum or Plasma 2021-05-25 06:54:00 Test Item Value Reference Range Interpretation Comments Glucose [Mass/volume] in Serum or 109 mg/dL 82-115 Plasma (test code = 2345-7) Urea nitrogen [Mass/volume] in 84 mg/dL 8-23 H Serum or Plasma (test code = 3094-0) osmolality calculated,serum (test 304 mOsm/kg 280-300 H code = osmolality calculated,serum) creatinine (test code = 2.7 mg/dL 0.70-1.20 H creatinine) glomerular filtration rate (test 22.79 L code = glomerular filtration rate) Urea nitrogen/Creatinine [Mass 31.1 12-20 H Ratio] in Serum or Plasma (test code = 3097-3) sodium level (test code = sodium 139 mmol/L 135-145 level) potassium level (test code = 4.7 mmol/L 3.5-5.2 potassium level) chloride level (test code = 106 mmol/L 98-108 chloride level) CO2 (test code = CO2) 21 mmol/L 21-32 anion gap (test code = anion gap) 16.7 mEq/L 12-20 calcium level (test code = 9.5 mg/dL 8.8-10.2 calcium level) total protein (test code = total 7.1 g/dL 6.6-8.7 protein) albumin (test code = albumin) 4.2 g/dL 3.5-5.2 globulin (test code = globulin) 2.9 gm/dL A/G ratio (test code = A/G ratio) 1.4 >1.0 bilirubin,total (test code = 0.3 mg/dL 0.0-1.2 bilirubin,total) AST/SGOT (test code = AST/SGOT) 11 U/L 15-40 L Alanine aminotransferase 4 U/L 0-41 [Enzymatic activity/volume] in Serum or Plasma (test code = 1742-6) Alkaline phosphatase [Enzymatic 85 U/L 40-130 activity/volume] in Serum or Plasma (test code = 6768-6) [facility] SystemLipid 1996 panel - Serum or [id number] 06:54:00 Test Item Value Reference Range Interpretation Comments cholesterol level (test code = 76 mg/dL 150-200 L cholesterol level) triglycerides level (test code = 101 mg/dL <150 triglycerides level) HDL cholesterol (test code = HDL 30 mg/dL >55 L cholesterol) LDL cholesterol direct (test code = 27 mg/dL <100 LDL cholesterol direct) cholesterol risk ratio (test code = 2.533 cholesterol risk ratio) [facility] W Auto Differential panel - [id number] 06:54:00 Test Item Value Reference Range Interpretation Comments white blood count (test code = 6.3 K/uL 4.0-12.3 white blood count) red blood count (test code = red 3.12 M/uL 3.80-5.80 L blood count) hemoglobin (test code = 9.6 g/dL 11.7-17.2 L hemoglobin) hematocrit (test code = 30.6 % 35.0-51.0 L hematocrit) MCV [Entitic volume] (test code = 98.1 fL 83-100 27648-3) mean corpuscular hemoglobin (test 30.8 pg 26.8-33.4 code = mean corpuscular hemoglobin) mean corpuscular HGB conc (test 31.4 g/dL 30-35 code = mean corpuscular HGB conc) red cell distribution width (test 15.7 % 12.0-14.0 H code = red cell distribution width) platelet count (test code = 267 K/uL 175-450 platelet count) mean platelet volume (test code = 10.1 fL 9.4-12.6 mean platelet volume) Segmented neutrophils/100 71.8 % 44.7-82.4 leukocytes in Blood (test code = 07932-5) Immature granulocytes [#/volume] 0.0 K/uL 0.0-0.03 in Blood (test code = 61047-3) lymphocyte% (test code = 18.4 % 10.0-50.0 lymphocyte%) mono % (test code = mono %) 7.4 % 3.9-13.4 eos % (test code = eos %) 1.9 % 0.0-6.4 Basophils/100 leukocytes in 0.3 % 0.2-1.2 Unspecified specimen (test code = 95291-4) Band form neutrophils [#/volume] 4.49 K/uL 1.78-5.38 in Blood (test code = 47885-1) Lymphocytes [#/volume] in 1.2 K/uL 1.32-3.57 L Unspecified specimen by Automated count (test code = 79740-9) mono # (test code = mono #) 0.46 K/uL 0.30-0.82 eos # (test code = eos #) 0.12 K/uL 0.04-0.54 basophil # (test code = basophil 0.02 K/uL 0.01-0.08 #) NRBC% (test code = NRBC%) 0 /100 WBC 0-0.2 NRBC# (test code = NRBC#) 0 K/uL [facility] SystemDifferential panel, method unspecified - [id number] 06:54:00NeutrophilsBandLymphocyteAtypical LymphMonocyteEosinophilBasophilMetamyelocyteAbs Neutrophil Count (Man)Abs Lymph Count (Man)Abs Monocyte Count (Man)Abs Eosinophil Count (Man)Abs Basophil Count (Man)Platelet EstimatePlatelet MorphologyHypochromasiaPoikilocytosisAnisocytosisMicrocytosisMacrocytosisTarget CellsToxic GranulationToxic VacuolationSmudge CellsMatagoSouth [facility] Group Hemoglobin A1c [Mass/volume] in [id number] 06:54:00 Test Item Value Reference Range Interpretation Comments Hemoglobin A1c [Mass/volume] in Blood 5.1 % 4.0-6.0 (test code = 37959-7) [facility] SystemUrinalysis complete W Reflex Culture panel - Urine 2021-05-25 06:54:00 Test Item Value Reference Range Interpretation Comments Color of Urine by Auto (test colorless code = 25495-2) Appearance of Urine (test code clear clear = 5767-9) Glucose [Presence] in Urine by negative negative Automated test strip (test code = 00838-2) Bilirubin.total [Mass/volume] negative negative in Urine (test code = 1978-6) Ketones [Mass/volume] in Urine negative negative by Automated test strip (test code = 79793-6) Specific gravity of Urine by 1.011 1.003-1.030 Automated test strip (test code = 35286-0) blood urine (test code = blood negative negative urine) pH of Urine (test code = 5.000 5-9 2756-5) protein urine (UA) (test code = negative negative protein urine (UA)) Urobilinogen [Presence] in normal 0.2-1.0 Urine (test code = 77389-7) Nitrite [Presence] in Urine by negative negative Test strip (test code = 5802-4) Leukocyte esterase [Presence] negative negative in Urine by Automated test strip (test code = 45878-9) Erythrocytes [#/volume] in <1 0-5 Urine by Automated count (test code = 798-9) Leukocytes [#/area] in Urine <1 0-5 sediment by Automated count (test code = 13724-2) Epithelial cells [Presence] in <1 0-5 Urine sediment by Light microscopy (test code = 25441-9) Bacteria identified in Urine by none detected none detect Culture (test code = 630-4) Casts [#/area] in Urine none detected none detect sediment by Automated count (test code = 80612-0) urine culture added? (test code no = urine culture added?) [facility] SystemThyrotropin [Units/volume] in Serum or [id number] 06:54:00 Test Item Value Reference Range Interpretation Comments Thyrotropin [Units/volume] in 0.30 uIU/mL 0.36-3.74 L Serum or Plasma (test code = 3016-3) [facility] SystemPT/[id number] 06:54:00 Test Item Value Reference Range Interpretation Comments prothrombin time (test code = 10.9 seconds 10.3-12.3 prothrombin time) INR in Blood by Coagulation 1.02 assay (test code = 63369-2) [facility] Systempartial thromboplastin [id number] 06:54:00 Test Item Value Reference Range Interpretation Comments INR in Blood by Coagulation 27.4 seconds 22.5-37.0 assay (test code = 34382-9) [facility] SystemComprehensive metabolic 2000 panel - Serum or Plasma 2021-05-25 06:54:00 Test Item Value Reference Range Interpretation Comments Glucose [Mass/volume] in Serum or 109 mg/dL 82-115 Plasma (test code = 2345-7) Urea nitrogen [Mass/volume] in 84 mg/dL 8-23 H Serum or Plasma (test code = 3094-0) osmolality calculated,serum (test 304 mOsm/kg 280-300 H code = osmolality calculated,serum) creatinine (test code = 2.7 mg/dL 0.70-1.20 H creatinine) glomerular filtration rate (test 22.79 L code = glomerular filtration rate) Urea nitrogen/Creatinine [Mass 31.1 12-20 H Ratio] in Serum or Plasma (test code = 3097-3) sodium level (test code = sodium 139 mmol/L 135-145 level) potassium level (test code = 4.7 mmol/L 3.5-5.2 potassium level) chloride level (test code = 106 mmol/L 98-108 chloride level) CO2 (test code = CO2) 21 mmol/L 21-32 anion gap (test code = anion gap) 16.7 mEq/L 12-20 calcium level (test code = 9.5 mg/dL 8.8-10.2 calcium level) total protein (test code = total 7.1 g/dL 6.6-8.7 protein) albumin (test code = albumin) 4.2 g/dL 3.5-5.2 globulin (test code = globulin) 2.9 gm/dL A/G ratio (test code = A/G ratio) 1.4 >1.0 bilirubin,total (test code = 0.3 mg/dL 0.0-1.2 bilirubin,total) AST/SGOT (test code = AST/SGOT) 11 U/L 15-40 L Alanine aminotransferase 4 U/L 0-41 [Enzymatic activity/volume] in Serum or Plasma (test code = 1742-6) Alkaline phosphatase [Enzymatic 85 U/L 40-130 activity/volume] in Serum or Plasma (test code = 6768-6) [facility] SystemLipid 1996 panel - Serum or [id number] 06:54:00 Test Item Value Reference Range Interpretation Comments cholesterol level (test code = 76 mg/dL 150-200 L cholesterol level) triglycerides level (test code = 101 mg/dL <150 triglycerides level) HDL cholesterol (test code = HDL 30 mg/dL >55 L cholesterol) LDL cholesterol direct (test code = 27 mg/dL <100 LDL cholesterol direct) cholesterol risk ratio (test code = 2.533 cholesterol risk ratio) [facility] W Auto Differential panel - [id number] 06:54:00 Test Item Value Reference Range Interpretation Comments white blood count (test code = 6.3 K/uL 4.0-12.3 white blood count) red blood count (test code = red 3.12 M/uL 3.80-5.80 L blood count) hemoglobin (test code = 9.6 g/dL 11.7-17.2 L hemoglobin) hematocrit (test code = 30.6 % 35.0-51.0 L hematocrit) MCV [Entitic volume] (test code = 98.1 fL 83-100 57670-0) mean corpuscular hemoglobin (test 30.8 pg 26.8-33.4 code = mean corpuscular hemoglobin) mean corpuscular HGB conc (test 31.4 g/dL 30-35 code = mean corpuscular HGB conc) red cell distribution width (test 15.7 % 12.0-14.0 H code = red cell distribution width) platelet count (test code = 267 K/uL 175-450 platelet count) mean platelet volume (test code = 10.1 fL 9.4-12.6 mean platelet volume) Segmented neutrophils/100 71.8 % 44.7-82.4 leukocytes in Blood (test code = 14055-4) Immature granulocytes [#/volume] 0.0 K/uL 0.0-0.03 in Blood (test code = 70105-1) lymphocyte% (test code = 18.4 % 10.0-50.0 lymphocyte%) mono % (test code = mono %) 7.4 % 3.9-13.4 eos % (test code = eos %) 1.9 % 0.0-6.4 Basophils/100 leukocytes in 0.3 % 0.2-1.2 Unspecified specimen (test code = 69227-7) Band form neutrophils [#/volume] 4.49 K/uL 1.78-5.38 in Blood (test code = 99215-4) Lymphocytes [#/volume] in 1.2 K/uL 1.32-3.57 L Unspecified specimen by Automated count (test code = 57255-3) mono # (test code = mono #) 0.46 K/uL 0.30-0.82 eos # (test code = eos #) 0.12 K/uL 0.04-0.54 basophil # (test code = basophil 0.02 K/uL 0.01-0.08 #) NRBC% (test code = NRBC%) 0 /100 WBC 0-0.2 NRBC# (test code = NRBC#) 0 K/uL [facility] SystemDifferential panel, method unspecified - [id number] 06:54:00NeutrophilsBandLymphocyteAtypical LymphMonocyteEosinophilBasophilMetamyelocyteAbs Neutrophil Count (Man)Abs Lymph Count (Man)Abs Monocyte Count (Man)Abs Eosinophil Count (Man)Abs Basophil Count (Man)Platelet EstimatePlatelet MorphologyHypochromasiaPoikilocytosisAnisocytosisMicrocytosisMacrocytosisTarget CellsToxic GranulationToxic VacuolationSmudge CellsMaGulfport [facility]al Health System Hemoglobin A1c [Mass/volume] in [id number] 06:54:00 Test Item Value Reference Range Interpretation Comments Hemoglobin A1c [Mass/volume] in Blood 5.1 % 4.0-6.0 (test code = 22495-1) [facility] SystemUrinalysis complete W Reflex Culture panel - Urine 2021-05-25 06:54:00 Test Item Value Reference Range Interpretation Comments Color of Urine by Auto (test colorless code = 39259-3) Appearance of Urine (test code clear clear = 5767-9) Glucose [Presence] in Urine by negative negative Automated test strip (test code = 73865-9) Bilirubin.total [Mass/volume] negative negative in Urine (test code = 1978-04) Ketones [Mass/volume] in Urine negative negative by Automated test strip (test code = 72791-1) Specific gravity of Urine by 1.011 1.003-1.030 Automated test strip (test code = 29421-8) blood urine (test code = blood negative negative urine) pH of Urine (test code = 5.000 5-9 2756-5) protein urine (UA) (test code = negative negative protein urine (UA)) Urobilinogen [Presence] in normal 0.2-1.0 Urine (test code = 86868-8) Nitrite [Presence] in Urine by negative negative Test strip (test code = 5802-4) Leukocyte esterase [Presence] negative negative in Urine by Automated test strip (test code = 05286-4) Erythrocytes [#/volume] in <1 0-5 Urine by Automated count (test code = 798-9) Leukocytes [#/area] in Urine <1 0-5 sediment by Automated count (test code = 67383-8) Epithelial cells [Presence] in <1 0-5 Urine sediment by Light microscopy (test code = 06581-1) Bacteria identified in Urine by none detected none detect Culture (test code = 630-4) Casts [#/area] in Urine none detected none detect sediment by Automated count (test code = 98099-8) urine culture added? (test code no = urine culture added?) [facility] SystemThyrotropin [Units/volume] in Serum or [id number] 06:54:00 Test Item Value Reference Range Interpretation Comments Thyrotropin [Units/volume] in 0.30 uIU/mL 0.36-3.74 L Serum or Plasma (test code = 3016-3) [facility] SystemPT/[id number] 06:54:00 Test Item Value Reference Range Interpretation Comments prothrombin time (test code = 10.9 seconds 10.3-12.3 prothrombin time) INR in Blood by Coagulation 1.02 assay (test code = 30062-0) [facility] Systempartial thromboplastin [id number] 06:54:00 Test Item Value Reference Range Interpretation Comments INR in Blood by Coagulation 27.4 seconds 22.5-37.0 assay (test code = 08384-4) [facility] SystemComprehensive metabolic 2000 panel - Serum or Plasma 2021-05-25 06:54:00 Test Item Value Reference Range Interpretation Comments Glucose [Mass/volume] in Serum or 109 mg/dL 82-115 Plasma (test code = 2345-7) Urea nitrogen [Mass/volume] in 84 mg/dL 8-23 H Serum or Plasma (test code = 3094-0) osmolality calculated,serum (test 304 mOsm/kg 280-300 H code = osmolality calculated,serum) creatinine (test code = 2.7 mg/dL 0.70-1.20 H creatinine) glomerular filtration rate (test 22.79 L code = glomerular filtration rate) Urea nitrogen/Creatinine [Mass 31.1 12-20 H Ratio] in Serum or Plasma (test code = 3097-3) sodium level (test code = sodium 139 mmol/L 135-145 level) potassium level (test code = 4.7 mmol/L 3.5-5.2 potassium level) chloride level (test code = 106 mmol/L 98-108 chloride level) CO2 (test code = CO2) 21 mmol/L 21-32 anion gap (test code = anion gap) 16.7 mEq/L 12-20 calcium level (test code = 9.5 mg/dL 8.8-10.2 calcium level) total protein (test code = total 7.1 g/dL 6.6-8.7 protein) albumin (test code = albumin) 4.2 g/dL 3.5-5.2 globulin (test code = globulin) 2.9 gm/dL A/G ratio (test code = A/G ratio) 1.4 >1.0 bilirubin,total (test code = 0.3 mg/dL 0.0-1.2 bilirubin,total) AST/SGOT (test code = AST/SGOT) 11 U/L 15-40 L Alanine aminotransferase 4 U/L 0-41 [Enzymatic activity/volume] in Serum or Plasma (test code = 1742-6) Alkaline phosphatase [Enzymatic 85 U/L 40-130 activity/volume] in Serum or Plasma (test code = 6768-6) [facility] SystemLipid 1995 panel - Serum or [id number] 06:54:00 Test Item Value Reference Range Interpretation Comments cholesterol level (test code = 76 mg/dL 150-200 L cholesterol level) triglycerides level (test code = 101 mg/dL <150 triglycerides level) HDL cholesterol (test code = HDL 30 mg/dL >55 L cholesterol) LDL cholesterol direct (test code = 27 mg/dL <100 LDL cholesterol direct) cholesterol risk ratio (test code = 2.533 cholesterol risk ratio) [facility] W Auto Differential panel - [id number] 03:18:00 Test Item Value Reference Range Interpretation Comments white blood count (test code = 7.4 K/uL 4.0-12.3 white blood count) red blood count (test code = red 3.69 M/uL 3.80-5.80 L blood count) hemoglobin (test code = 10.8 g/dL 11.7-17.2 L hemoglobin) hematocrit (test code = 33.7 % 35.0-51.0 L hematocrit) MCV [Entitic volume] (test code = 91.3 fL 83-100 18089-1) mean corpuscular hemoglobin (test 29.3 pg 26.8-33.4 code = mean corpuscular hemoglobin) mean corpuscular HGB conc (test 32.0 g/dL 30-35 code = mean corpuscular HGB conc) red cell distribution width (test 15.8 % 12.0-14.0 H code = red cell distribution width) platelet count (test code = 207 K/uL 175-450 platelet count) mean platelet volume (test code = 9.5 fL 9.4-12.6 mean platelet volume) Segmented neutrophils/100 82.2 % 44.7-82.4 leukocytes in Blood (test code = 34861-8) Immature granulocytes [#/volume] 0.0 K/uL 0.0-0.03 H in Blood (test code = 37829-7) lymphocyte% (test code = 11.2 % 10.0-50.0 lymphocyte%) mono % (test code = mono %) 5.9 % 3.9-13.4 eos % (test code = eos %) 0.1 % 0.0-6.4 Basophils/100 leukocytes in 0.1 % 0.2-1.2 L Unspecified specimen (test code = 37760-2) Band form neutrophils [#/volume] 6.07 K/uL 1.78-5.38 H in Blood (test code = 46566-2) Lymphocytes [#/volume] in 0.8 K/uL 1.32-3.57 L Unspecified specimen by Automated count (test code = 47157-9) mono # (test code = mono #) 0.44 K/uL 0.30-0.82 eos # (test code = eos #) 0.01 K/uL 0.04-0.54 L basophil # (test code = basophil 0.01 K/uL 0.01-0.08 #) NRBC% (test code = NRBC%) 0 /100 WBC 0-0.2 NRBC# (test code = NRBC#) 0 K/uL [facility] SystemComprehensive [facility] 2000 panel - Serum or Plasma 2021-03-27 03:18:00 Test Item Value Reference Range Interpretation Comments Glucose [Mass/volume] in Serum or 116 mg/dL 82-115 H Plasma (test code = 2345-7) Urea nitrogen [Mass/volume] in 42 mg/dL 8-23 H Serum or Plasma (test code = 3094-0) osmolality calculated,serum (test 278 mOsm/kg 280-300 L code = osmolality calculated,serum) creatinine (test code = 1.9 mg/dL 0.70-1.20 H creatinine) glomerular filtration rate (test 34.28 L code = glomerular filtration rate) Urea nitrogen/Creatinine [Mass 22.1 12-20 H Ratio] in Serum or Plasma (test code = 3097-3) sodium level (test code = sodium 133 mmol/L 135-145 L level) potassium level (test code = 4.8 mmol/L 3.5-5.2 potassium level) chloride level (test code = 106 mmol/L 98-108 chloride level) CO2 (test code = CO2) 18 mmol/L 21-32 L anion gap (test code = anion gap) 13.8 mEq/L 12-20 calcium level (test code = 8.9 mg/dL 8.8-10.2 calcium level) total protein (test code = total 5.9 g/dL 6.6-8.7 L protein) albumin (test code = albumin) 3.0 g/dL 3.5-5.2 L globulin (test code = globulin) 2.9 gm/dL A/G ratio (test code = A/G ratio) 1.0 >1.0 bilirubin,total (test code = <0.3 0.0-1.2 bilirubin,total) AST/SGOT (test code = AST/SGOT) 11 U/L 15-40 L Alanine aminotransferase 6 U/L 0-41 [Enzymatic activity/volume] in Serum or Plasma (test code = 1742-6) Alkaline phosphatase [Enzymatic 94 U/L 40-130 activity/volume] in Serum or Plasma (test code = 6768-6) [facility] SystemPhosphate [Mass/volume] in Serum or [id number] 03:18:00 Test Item Value Reference Range Interpretation Comments phosphorous level (test code = 4.3 mg/dL 2.5-4.5 phosphorous level) [facility] SystemMagnesium [Moles/volume] in Unspecified specimen 2021-03-27 03:18:00 Test Item Value Reference Range Interpretation Comments magnesium level (test code = 1.6 mg/dL 1.6-2.4 magnesium level) [facility] SystemHemoglobin and Hematocrit panel - [id number] 12:10:00 Test Item Value Reference Range Interpretation Comments hemoglobin (test code = hemoglobin) 11.0 g/dL 11.7-17.2 hematocrit (test code = hematocrit) 34.4 % 35.0-51.0 [facility] W Auto Differential panel - [id number] 05:09:00 Test Item Value Reference Range Interpretation Comments white blood count (test code = 5.4 K/uL 4.0-12.3 white blood count) red blood count (test code = red 4.07 M/uL 3.80-5.80 blood count) hemoglobin (test code = 11.6 g/dL 11.7-17.2 L hemoglobin) hematocrit (test code = 36.9 % 35.0-51.0 hematocrit) MCV [Entitic volume] (test code = 90.7 fL 83-100 33496-0) mean corpuscular hemoglobin (test 28.5 pg 26.8-33.4 code = mean corpuscular hemoglobin) mean corpuscular HGB conc (test 31.4 g/dL 30-35 code = mean corpuscular HGB conc) red cell distribution width (test 15.8 % 12.0-14.0 H code = red cell distribution width) platelet count (test code = 176 K/uL 175-450 platelet count) mean platelet volume (test code = 8.7 fL 9.4-12.6 L mean platelet volume) Segmented neutrophils/100 88.1 % 44.7-82.4 H leukocytes in Blood (test code = 10476-9) Immature granulocytes [#/volume] 0.0 K/uL 0.0-0.03 in Blood (test code = 09818-4) lymphocyte% (test code = 8.3 % 10.0-50.0 L lymphocyte%) mono % (test code = mono %) 2.4 % 3.9-13.4 L eos % (test code = eos %) 0.6 % 0.0-6.4 Basophils/100 leukocytes in 0.4 % 0.2-1.2 Unspecified specimen (test code = 62249-9) Band form neutrophils [#/volume] 4.79 K/uL 1.78-5.38 in Blood (test code = 86095-5) Lymphocytes [#/volume] in 0.5 K/uL 1.32-3.57 L Unspecified specimen by Automated count (test code = 24565-3) mono # (test code = mono #) 0.13 K/uL 0.30-0.82 L eos # (test code = eos #) 0.03 K/uL 0.04-0.54 L basophil # (test code = basophil 0.02 K/uL 0.01-0.08 #) NRBC% (test code = NRBC%) 0 /100 WBC 0-0.2 NRBC# (test code = NRBC#) 0 K/uL [facility] 2000 [facility] - Serum or Plasma 2021-03-26 05:09:00 Test Item Value Reference Range Interpretation Comments glucose (test code = glucose) 127 mg/dL 82-115 H Urea nitrogen [Mass/volume] in 31 mg/dL 8-23 H Serum or Plasma (test code = 3094-0) osmolality calculated,serum (test 280 mOsm/kg 280-300 code = osmolality calculated,serum) creatinine (test code = 1.9 mg/dL 0.70-1.20 H creatinine) glomerular filtration rate (test 34.28 L code = glomerular filtration rate) Urea nitrogen/Creatinine [Mass 16.3 12-20 Ratio] in Serum or Plasma (test code = 3097-3) sodium level (test code = sodium 136 mmol/L 135-145 level) Potassium [Moles/volume] in Body 5.1 mmol/L 3.5-5.2 fluid (test code = 2821-7) chloride level (test code = 105 mmol/L 98-108 chloride level) CO2 (test code = CO2) 20 mmol/L 21-32 L anion gap (test code = anion gap) 16.1 mEq/L 12-20 calcium level (test code = 8.9 mg/dL 8.8-10.2 calcium level) total protein (test code = total 6.1 g/dL 6.6-8.7 L protein) albumin (test code = albumin) 3.3 g/dL 3.5-5.2 L globulin (test code = globulin) 2.8 gm/dL A/G ratio (test code = A/G ratio) 1.2 >1.0 bilirubin,total (test code = 0.4 mg/dL 0.0-1.2 bilirubin,total) AST/SGOT (test code = AST/SGOT) 12 U/L 15-40 L Alanine aminotransferase 6 U/L 0-41 [Enzymatic activity/volume] in Serum or Plasma (test code = 1742-6) Alkaline phosphatase [Enzymatic 82 U/L 40-130 activity/volume] in Serum or Plasma (test code = 6768-6) [facility]Phosphate [Mass/volume] in Serum or [id number] 05:09:00 Test Item Value Reference Range Interpretation Comments phosphorous level (test code = 4.2 mg/dL 2.5-4.5 phosphorous level) [facility] GroupMagnesium [Moles/volume] in Unspecified specimen 2021-03-26 05:09:00 Test Item Value Reference Range Interpretation Comments magnesium level (test code = 1.6 mg/dL 1.6-2.4 magnesium level) [facility] GroupPT/[id number] 04:23:00 Test Item Value Reference Range Interpretation Comments prothrombin time (test code = 10.3 seconds 10.3-12.3 prothrombin time) INR in Blood by Coagulation 0.96 assay (test code = 55125-6) [facility]partial thromboplastin [id number] 04:23:00 Test Item Value Reference Range Interpretation Comments INR in Blood by Coagulation 28.7 seconds 22.5-37.0 assay (test code = 67198-2) [facility] SystemBlood type and Crossmatch panel - [id number] 12:44:00 Test Item Value Reference Range Interpretation Comments Blood type and Crossmatch unit number: panel - Blood (test code [id number] = 78735-3) [place] [id number] [facility] 12:44:[place] [id number] 12:44:00Results [place] [id number] 12:44:[facility] 2021-03-25 12:44:00Results[place] [id number] 12:44:00Results [place] [id number] 12:44[facility] 2021-03-25 12:44:00Results[place] [id number] 12:44:00Results [place] [id number] 12:44:[facility] 2021-03-25 12:44:00Results[place] [id number] 12:44:00Results [facility] SystemBlood type and Indirect antibody screen panel - Blood 2021-03-25 07:29:00 Test Item Value Reference Range Interpretation Comments Rh [Type] in Blood (test code = 4+ 65231-6) ABO and Rh group panel - Blood A positive (test code = 74247-6) [facility] SystemVancomycin [Mass/volume] in Serum or Plasma --trough 2021-03-25 05:38:00 Test Item Value Reference Range Interpretation Comments Vancomycin [Mass/volume] in Serum 17.9 ug/mL 10-20 or Plasma --trough (test code = 4092-3) [facility] W Auto Differential panel - [id number] 01:45:00 Test Item Value Reference Range Interpretation Comments white blood count (test code = 6.6 K/uL 4.0-12.3 white blood count) red blood count (test code = red 2.83 M/uL 3.80-5.80 L blood count) hemoglobin (test code = 8.2 g/dL 11.7-17.2 L hemoglobin) hematocrit (test code = 26.9 % 35.0-51.0 L hematocrit) MCV [Entitic volume] (test code = 95.1 fL 83-100 82427-3) mean corpuscular hemoglobin (test 29.0 pg 26.8-33.4 code = mean corpuscular hemoglobin) mean corpuscular HGB conc (test 30.5 g/dL 30-35 code = mean corpuscular HGB conc) red cell distribution width (test 16.5 % 12.0-14.0 H code = red cell distribution width) platelet count (test code = 182 K/uL 175-450 platelet count) mean platelet volume (test code = 9.5 fL 9.4-12.6 mean platelet volume) Segmented neutrophils/100 79.1 % 44.7-82.4 leukocytes in Blood (test code = 43917-9) Immature granulocytes [#/volume] 0.0 K/uL 0.0-0.03 in Blood (test code = 78073-4) lymphocyte% (test code = 9.6 % 10.0-50.0 L lymphocyte%) mono % (test code = mono %) 8.2 % 3.9-13.4 eos % (test code = eos %) 2.6 % 0.0-6.4 Basophils/100 leukocytes in 0.2 % 0.2-1.2 Unspecified specimen (test code = 17692-2) Band form neutrophils [#/volume] 5.18 K/uL 1.78-5.38 in Blood (test code = 54622-6) Lymphocytes [#/volume] in 0.6 K/uL 1.32-3.57 L Unspecified specimen by Automated count (test code = 16332-0) mono # (test code = mono #) 0.54 K/uL 0.30-0.82 eos # (test code = eos #) 0.17 K/uL 0.04-0.54 basophil # (test code = basophil 0.01 K/uL 0.01-0.08 #) NRBC% (test code = NRBC%) 0 /100 WBC 0-0.2 NRBC# (test code = NRBC#) 0 K/uL [facility] SystemCom[facility] 2000 panel - Serum or Plasma 2021-03-25 01:45:00 Test Item Value Reference Range Interpretation Comments Glucose [Mass/volume] in Serum or 104 mg/dL 82-115 Plasma (test code = 2345-7) Urea nitrogen [Mass/volume] in 33 mg/dL 8-23 H Serum or Plasma (test code = 3094-0) osmolality calculated,serum (test 285 mOsm/kg 280-300 code = osmolality calculated,serum) creatinine (test code = 1.9 mg/dL 0.70-1.20 H creatinine) glomerular filtration rate (test 34.28 L code = glomerular filtration rate) Urea nitrogen/Creatinine [Mass 17.4 12-20 Ratio] in Serum or Plasma (test code = 3097-3) sodium level (test code = sodium 139 mmol/L 135-145 level) potassium level (test code = 4.2 mmol/L 3.5-5.2 potassium level) chloride level (test code = 109 mmol/L 98-108 H chloride level) CO2 (test code = CO2) 21 mmol/L 21-32 anion gap (test code = anion gap) 13.2 mEq/L 12-20 calcium level (test code = 8.5 mg/dL 8.8-10.2 L calcium level) total protein (test code = total 5.8 g/dL 6.6-8.7 L protein) albumin (test code = albumin) 3.1 g/dL 3.5-5.2 L globulin (test code = globulin) 2.7 gm/dL A/G ratio (test code = A/G ratio) 1.1 >1.0 bilirubin,total (test code = 0.3 mg/dL 0.0-1.2 bilirubin,total) AST/SGOT (test code = AST/SGOT) 11 U/L 15-40 L Alanine aminotransferase 6 U/L 0-41 [Enzymatic activity/volume] in Serum or Plasma (test code = 1742-6) Alkaline phosphatase [Enzymatic 76 U/L 40-130 activity/volume] in Serum or Plasma (test code = 6768-6) [facility] SystemPhosphate [Mass/volume] in Serum or [id number] 01:45:00 Test Item Value Reference Range Interpretation Comments phosphorous level (test code = 4.2 mg/dL 2.5-4.5 phosphorous level) [facility] SystemMagnesium [Moles/volume] in Unspecified specimen 2021-03-25 01:45:00 Test Item Value Reference Range Interpretation Comments magnesium level (test code = 1.6 mg/dL 1.6-2.4 magnesium level) [facility] SystemErythrocyte sedimentation [id number] 11:57:00 Test Item Value Reference Range Interpretation Comments erythrocyte sedimentation rate (test 33 mm/HR 0.00-20 H code = erythrocyte sedimentation rate) [facility] SystemBacteria identified in Wound by [id number] 11:43:00ResultsCop[facility] Centerurgical pathology [id number] 09:30:00 Test Item Value Reference Range Interpretation Comments Surgical pathology see emr pathology study (test code = report. 60198-0) [facility] SystemBacteria identified in Abscess by Aerobe culture 2021-03-24 09:22:00 Test Item Value Reference Range Interpretation Comments results (test code = results) Bacteria identified in no growth at 2 days Abscess by Aerobe culture (test code = 595-9) [facility] Systempartial thromboplastin [id number] 03:50:00 Test Item Value Reference Range Interpretation Comments INR in Blood by Coagulation 29.1 seconds 22.5-37.0 assay (test code = 43058-0) [facility] SystemComprehensive metabolic 2000 panel - Serum or Plasma 2021-03-24 03:50:00 Test Item Value Reference Range Interpretation Comments Glucose [Mass/volume] in Serum or 125 mg/dL 82-115 H Plasma (test code = 2345-7) Urea nitrogen [Mass/volume] in 39 mg/dL 8-23 H Serum or Plasma (test code = 3094-0) osmolality calculated,serum (test 281 mOsm/kg 280-300 code = osmolality calculated,serum) creatinine (test code = 2.2 mg/dL 0.70-1.20 H creatinine) glomerular filtration rate (test 28.94 L code = glomerular filtration rate) Urea nitrogen/Creatinine [Mass 17.7 12-20 Ratio] in Serum or Plasma (test code = 3097-3) sodium level (test code = sodium 135 mmol/L 135-145 level) potassium level (test code = 4.1 mmol/L 3.5-5.2 potassium level) chloride level (test code = 104 mmol/L 98-108 chloride level) CO2 (test code = CO2) 22 mmol/L 21-32 anion gap (test code = anion gap) 13.1 mEq/L 12-20 calcium level (test code = 8.3 mg/dL 8.8-10.2 L calcium level) total protein (test code = total 5.7 g/dL 6.6-8.7 L protein) albumin (test code = albumin) 3.1 g/dL 3.5-5.2 L globulin (test code = globulin) 2.6 gm/dL A/G ratio (test code = A/G ratio) 1.2 >1.0 bilirubin,total (test code = 0.4 mg/dL 0.0-1.2 bilirubin,total) AST/SGOT (test code = AST/SGOT) 10 U/L 15-40 L Alanine aminotransferase 6 U/L 0-41 [Enzymatic activity/volume] in Serum or Plasma (test code = 1742-6) Alkaline phosphatase [Enzymatic 78 U/L 40-130 activity/volume] in Serum or Plasma (test code = 6768-6) [facility] GroupPhosphate [Mass/volume] in Serum or [id number] 03:50:00 Test Item Value Reference Range Interpretation Comments phosphorous level (test code = 3.9 mg/dL 2.5-4.5 phosphorous level) [facility] GroupMagnesium [Moles/volume] in Unspecified specimen 2021-03-24 03:50:00 Test Item Value Reference Range Interpretation Comments magnesium level (test code = 1.5 mg/dL 1.6-2.4 L magnesium level) [facility] W Auto Differential panel - [id number] 01:11:00 Test Item Value Reference Range Interpretation Comments white blood count (test code = 11.8 K/uL 4.0-12.3 white blood count) red blood count (test code = red 3.13 M/uL 3.80-5.80 L blood count) hemoglobin (test code = 9.0 g/dL 11.7-17.2 L hemoglobin) hematocrit (test code = 29.5 % 35.0-51.0 L hematocrit) MCV [Entitic volume] (test code = 94.2 fL 83-100 95262-7) mean corpuscular hemoglobin (test 28.8 pg 26.8-33.4 code = mean corpuscular hemoglobin) mean corpuscular HGB conc (test 30.5 g/dL 30-35 code = mean corpuscular HGB conc) red cell distribution width (test 16.4 % 12.0-14.0 H code = red cell distribution width) platelet count (test code = 185 K/uL 175-450 platelet count) mean platelet volume (test code = 8.7 fL 9.4-12.6 L mean platelet volume) Segmented neutrophils/100 81.7 % 44.7-82.4 leukocytes in Blood (test code = 03716-3) Immature granulocytes [#/volume] 0.0 K/uL 0.0-0.03 in Blood (test code = 92288-3) lymphocyte% (test code = 8.8 % 10.0-50.0 L lymphocyte%) mono % (test code = mono %) 8.3 % 3.9-13.4 eos % (test code = eos %) 0.7 % 0.0-6.4 Basophils/100 leukocytes in 0.2 % 0.2-1.2 Unspecified specimen (test code = 75310-5) Band form neutrophils [#/volume] 9.62 K/uL 1.78-5.38 H in Blood (test code = 25426-8) Lymphocytes [#/volume] in 1.0 K/uL 1.32-3.57 L Unspecified specimen by Automated count (test code = 09732-3) mono # (test code = mono #) 0.98 K/uL 0.30-0.82 H eos # (test code = eos #) 0.08 K/uL 0.04-0.54 basophil # (test code = basophil 0.02 K/uL 0.01-0.08 #) NRBC% (test code = NRBC%) 0 /100 WBC 0-0.2 NRBC# (test code = NRBC#) 0 K/uL [facility] SystemDifferential panel, method unspecified - [id number] 01:11:00NeutrophilsBandLymphocyteAtypical LymphMonocyteEosinophilBasophilMetamyelocyteMyelocytePromyelocyteBlastsNucleated Red Blood CellAbs Neutrophil Count (Man)Abs Lymph Count (Man)Abs Monocyte Count (Man)Abs Eosinophil Count (Man)Abs Basophil Count (Man)Platelet EstimatePlatelet MorphologyHypochromasiaPoik ilocytosisAnisocytosisMicrocytosisRouleauToxic VacuolationG[facility] SystemComprehensive metabolic 2000 panel - Serum or [id number] 01:11:00 Test Item Value Reference Range Interpretation Comments Glucose [Mass/volume] in Serum or 117 mg/dL 82-115 H Plasma (test code = 2345-7) Urea nitrogen [Mass/volume] in 46 mg/dL 8-23 H Serum or Plasma (test code = 3094-0) osmolality calculated,serum (test 289 mOsm/kg 280-300 code = osmolality calculated,serum) creatinine (test code = 2.1 mg/dL 0.70-1.20 H creatinine) glomerular filtration rate (test 30.54 L code = glomerular filtration rate) Urea nitrogen/Creatinine [Mass 21.9 12-20 H Ratio] in Serum or Plasma (test code = 3097-3) sodium level (test code = sodium 138 mmol/L 135-145 level) potassium level (test code = 4.2 mmol/L 3.5-5.2 potassium level) chloride level (test code = 103 mmol/L 98-108 chloride level) CO2 (test code = CO2) 23 mmol/L 21-32 anion gap (test code = anion gap) 16.2 mEq/L 12-20 calcium level (test code = 8.4 mg/dL 8.8-10.2 L calcium level) total protein (test code = total 6.2 g/dL 6.6-8.7 L protein) albumin (test code = albumin) 3.6 g/dL 3.5-5.2 globulin (test code = globulin) 2.6 gm/dL A/G ratio (test code = A/G ratio) 1.4 >1.0 bilirubin,total (test code = 0.9 mg/dL 0.0-1.2 bilirubin,total) AST/SGOT (test code = AST/SGOT) 11 U/L 15-40 L Alanine aminotransferase 5 U/L 0-41 [Enzymatic activity/volume] in Serum or Plasma (test code = 1742-6) Alkaline phosphatase [Enzymatic 85 U/L 40-130 activity/volume] in Serum or Plasma (test code = 6768-6) [facility] SystemNatriuretic peptide.B prohormone N-Terminal [Mass/volume] in Serum or [id number] 01:11:00 Test Item Value Reference Range Interpretation Comments N-term pro natriuretic peptide 1684 pg/mL 0-450 H (test code = N-term pro natriuretic peptide) [facility] SystemLipid 1996 panel - Serum or [id number] 01:11:00 Test Item Value Reference Range Interpretation Comments cholesterol level (test code = 89 mg/dL 150-200 L cholesterol level) triglycerides level (test code = 112 mg/dL <150 triglycerides level) HDL cholesterol (test code = HDL 37 mg/dL >55 L cholesterol) LDL cholesterol direct (test code = 35 mg/dL <100 LDL cholesterol direct) cholesterol risk ratio (test code = 2.405 cholesterol risk ratio) [facility] RNA [Presence] in Respiratory specimen by JANNA with probe [id number] 11:33:0586669-7PfrtvjygrG[facility]port [facility]al Health SystemUrinalysis complete panel - [id number] 10:20:00 Test Item Value Reference Range Interpretation Comments Color of Urine by Auto (test code lt. yellow = 27219-8) Appearance of Urine (test code = clear clear 5767-9) Glucose [Mass/volume] in Urine negative negative (test code = 2350-7) bilirubin, urine (test code = negative negative bilirubin, urine) ketone, urine (test code = negative negative ketone, urine) Specific gravity of Urine by 1.010 1.003-1.030 Automated test strip (test code = 61427-2) Hemoglobin [Presence] in Urine by small negative H Test strip (test code = 5794-3) pH of Urine (test code = 2756-5) 5.500 5-9 protein urine (UA) (test code = negative negative protein urine (UA)) Urobilinogen [Presence] in Urine 0.2 E.U./dL 0.2-1.0 (test code = 57490-4) Nitrite [Presence] in Urine by negative negative Test strip (test code = 5802-4) urine leukocyte esterase (test negative negative code = urine leukocyte esterase) Erythrocytes [Presence] in Urine =6-10 0-5 (test code = 14631-4) WBC, urine (test code = WBC, =0-2 0-5 urine) Epithelial cells [Presence] in =0-5 0-5 Urine sediment by Light microscopy (test code = 09012-5) bacteria, urine (test code = trace none detect bacteria, urine) urine culture added? (test code = no urine culture added?) [facility] SystemLipid 1996 panel - Serum or [id number] 03:10:00 Test Item Value Reference Range Interpretation Comments cholesterol level (test code = 109 mg/dL 150-200 L cholesterol level) triglycerides level (test code = 143 mg/dL <150 triglycerides level) HDL cholesterol (test code = HDL 45 mg/dL >55 L cholesterol) LDL cholesterol direct (test code = 46 mg/dL <100 LDL cholesterol direct) cholesterol risk ratio (test code = 2.422 cholesterol risk ratio) [facility] SystemHemoglobin A1c [Mass/volume] in [id number] 03:10:00 Test Item Value Reference Range Interpretation Comments Hemoglobin A1c [Mass/volume] in Blood 5.0 % 4.0-6.0 (test code = 49142-9) [facility] SystemThyrotropin [Units/volume] in Serum or [id number] 03:10:00 Test Item Value Reference Range Interpretation Comments Thyrotropin [Units/volume] in 0.97 uIU/mL 0.36-3.74 Serum or Plasma (test code = 3016-3) [facility] W Auto Differential panel - [id number] 03:10:00 Test Item Value Reference Range Interpretation Comments white blood count (test code = 15.5 K/uL 4.0-12.3 white blood count) red blood count (test code = red 3.76 M/uL 3.80-5.80 L blood count) hemoglobin (test code = 11.0 g/dL 11.7-17.2 L hemoglobin) hematocrit (test code = 35.4 % 35.0-51.0 hematocrit) MCV [Entitic volume] (test code = 94.1 fL 83-100 85168-7) mean corpuscular hemoglobin (test 29.3 pg 26.8-33.4 code = mean corpuscular hemoglobin) mean corpuscular HGB conc (test 31.1 g/dL 30-35 code = mean corpuscular HGB conc) red cell distribution width (test 16.4 % 12.0-14.0 H code = red cell distribution width) platelet count (test code = 233 K/uL 175-450 platelet count) mean platelet volume (test code = 9.4 fL 9.4-12.6 mean platelet volume) Segmented neutrophils/100 84.4 % 44.7-82.4 H leukocytes in Blood (test code = 34034-3) Immature granulocytes [#/volume] 0.1 K/uL 0.0-0.03 H in Blood (test code = 75728-1) lymphocyte% (test code = 5.4 % 10.0-50.0 L lymphocyte%) mono % (test code = mono %) 9.0 % 3.9-13.4 eos % (test code = eos %) 0.5 % 0.0-6.4 Basophils/100 leukocytes in 0.2 % 0.2-1.2 Unspecified specimen (test code = 79540-4) Band form neutrophils [#/volume] 13.12 K/uL 1.78-5.38 H in Blood (test code = 87980-4) Lymphocytes [#/volume] in 0.8 K/uL 1.32-3.57 L Unspecified specimen by Automated count (test code = 71639-6) mono # (test code = mono #) 1.39 K/uL 0.30-0.82 H eos # (test code = eos #) 0.07 K/uL 0.04-0.54 basophil # (test code = basophil 0.03 K/uL 0.01-0.08 #) NRBC% (test code = NRBC%) 0 /100 WBC 0-0.2 NRBC# (test code = NRBC#) 0 K/uL [facility] SystemComprehensive metabolic 2000 panel - Serum or Plasma 2021-03-22 03:10:00 Test Item Value Reference Range Interpretation Comments Glucose [Mass/volume] in Serum or 111 mg/dL 82-115 Plasma (test code = 2345-7) Urea nitrogen [Mass/volume] in 46 mg/dL 8-23 H Serum or Plasma (test code = 3094-0) osmolality calculated,serum (test 290 mOsm/kg 280-300 code = osmolality calculated,serum) creatinine (test code = 2.2 mg/dL 0.70-1.20 H creatinine) glomerular filtration rate (test 28.94 L code = glomerular filtration rate) Urea nitrogen/Creatinine [Mass 20.9 12-20 H Ratio] in Serum or Plasma (test code = 3097-3) sodium level (test code = sodium 139 mmol/L 135-145 level) potassium level (test code = 4.4 mmol/L 3.5-5.2 potassium level) chloride level (test code = 101 mmol/L 98-108 chloride level) CO2 (test code = CO2) 24 mmol/L 21-32 anion gap (test code = anion gap) 18.4 mEq/L 12-20 calcium level (test code = 9.0 mg/dL 8.8-10.2 calcium level) total protein (test code = total 7.5 g/dL 6.6-8.7 protein) albumin (test code = albumin) 4.4 g/dL 3.5-5.2 globulin (test code = globulin) 3.1 gm/dL A/G ratio (test code = A/G ratio) 1.4 >1.0 bilirubin,total (test code = 0.5 mg/dL 0.0-1.2 bilirubin,total) AST/SGOT (test code = AST/SGOT) 15 U/L 15-40 Alanine aminotransferase 7 U/L 0-41 [Enzymatic activity/volume] in Serum or Plasma (test code = 1742-6) Alkaline phosphatase [Enzymatic 112 U/L 40-130 activity/volume] in Serum or Plasma (test code = 6768-6) [facility] SystemBacteria identified in Wound by [id number] 09:59:00ResultsGulfport Behavioral Health Systemantibiotic sensitivity testing, isolate 2021-03-15 09:59:00 Test Item Value Reference Range Interpretation Comments Gentamicin [Susceptibility] by >8 Minimum inhibitory concentration (KAUSHIK) (test code = 267-5) Ampicillin [Susceptibility] by <2 Minimum inhibitory concentration (KAUSHIK) (test code = 28-1) ceFAZolin [Susceptibility] by 16 ug/mL Minimum inhibitory concentration (KAUSHIK) (test code = 76-0) Oxacillin [Susceptibility] by >2 Minimum inhibitory concentration (KAUSHIK) (test code = 383-0) Penicillin [Susceptibility] by 8 ug/mL Minimum inhibitory concentration (KAUSHIK) (test code = 6932-8) Trimethoprim+Sulfamethoxazole =2/38 [Susceptibility] by Minimum inhibitory concentration (KAUSHIK) (test code = 516-5) Tetracycline [Susceptibility] by >8 Minimum inhibitory concentration (KAUSHIK) (test code = 496-0) Amoxicillin+Clavulanate =4/2 [Susceptibility] by Minimum inhibitory concentration (KAUSHIK) (test code = 20-8) Clindamycin [Susceptibility] by >2 Minimum inhibitory concentration (KAUSHIK) (test code = 193-3) Nitrofurantoin [Susceptibility] by <32 Minimum inhibitory concentration (KAUSHIK) (test code = 363-2) Vancomycin [Susceptibility] by 2 ug/mL Minimum inhibitory concentration (KAUSHIK) (test code = 524-9) levoFLOXacin [Susceptibility] by >4 Minimum inhibitory concentration (KAUSHIK) (test code = 00896-0) Ciprofloxacin [Susceptibility] by >2 Minimum inhibitory concentration (KAUSHIK) (test code = 185-9) Ampicillin+Sulbactam =8/4 [Susceptibility] by Minimum inhibitory concentration (KAUSHIK) (test code = 32-3) Linezolid [Susceptibility] by <2 Minimum inhibitory concentration (KAUSHIK) (test code = 95371-7) DAPTOmycin [Susceptibility] by <1 Minimum inhibitory concentration (KAUSHIK) (test code = 56924-3) [facility] W Auto Differential panel - [id number] 09:37:00 Test Item Value Reference Range Interpretation Comments white blood count (test code = 6.7 K/uL 4.0-12.3 white blood count) red blood count (test code = red 3.05 M/uL 3.80-5.80 L blood count) hemoglobin (test code = 9.3 g/dL 11.7-17.2 L hemoglobin) hematocrit (test code = 29.4 % 35.0-51.0 L hematocrit) Erythrocyte mean corpuscular 96.4 fL 83-100 volume [Entitic volume] (test code = 71956-3) mean corpuscular hemoglobin (test 30.5 pg 26.8-33.4 [...] 44.7-82.4 leukocytes in Blood (test code = 81820-7) Granulocytes Immature [#/volume] 0.0 K/uL 0.0-0.03 in Blood (test code = 06565-7) lymphocyte% (test code = 13.8 % 10.0-50.0 lymphocyte%) mono % (test code = mono %) 10.6 % 3.9-13.4 eos % (test code = eos %) 6.6 % 0.0-6.4 H Basophils/100 leukocytes in 0.9 % 0.2-1.2 Unspecified specimen (test code = 91319-6) Neutrophils.band form [#/volume] 4.52 K/uL 1.78-5.38 in Blood (test code = 01225-5) Lymphocytes [#/volume] in 0.9 K/uL 1.32-3.57 L Unspecified specimen by Automated count (test code = 58860-2) mono # (test code = mono #) 0.71 K/uL 0.30-0.82 eos # (test code = eos #) 0.44 K/uL 0.04-0.54 basophil # (test code = basophil 0.06 K/uL 0.01-0.08 #) NRBC% (test code = NRBC%) 0 /100 WBC 0-0.2 NRBC# (test code = NRBC#) 0 K/uL [id number] 09:37:00 Test Item Value Reference Range Interpretation Comments prothrombin time (test code = 10.3 seconds 10.3-12.3 prothrombin time) INR in Blood by Coagulation 0.95 assay (test code = 59877-4) [facility]partial [facility]in [id number] 09:37:00 Test Item Value Reference Range Interpretation Comments INR in Blood by Coagulation 29.1 seconds 22.5-37.0 assay (test code = 59133-2) [facility] SystemThyrotropin [Units/volume] in Serum or [id number] 09:37:00 Test Item Value Reference Range Interpretation Comments Thyrotropin [Units/volume] in 2.98 uIU/mL 0.36-3.74 Serum or Plasma (test code = 3016-3) [facility] SystemHemoglobin A1c [Mass/volume] in [id number] 09:37:00 Test Item Value Reference Range Interpretation Comments Hemoglobin A1c [Mass/volume] in Blood 4.9 % 4.0-6.0 (test code = 50682-1) [facility] SystemComprehensive metabolic 2000 panel - Serum or Plasma [...] Serum or Plasma (test code = 6768-6) [facility] SystemLipid 1996 panel - Serum or [id number] 09:37:00 Test Item Value Reference Range Interpretation Comments cholesterol level (test code = 104 mg/dL 150-200 L cholesterol level) triglycerides level (test code = 92 mg/dL <150 triglycerides level) HDL cholesterol (test code = HDL 36 mg/dL >55 L cholesterol) LDL cholesterol direct (test code = 55 mg/dL <100 LDL cholesterol direct) cholesterol risk ratio (test code = 2.888 cholesterol risk ratio) [facility] SystemUrinal[facility] complete W Reflex Culture panel - Urine 2020-01-01 09:37:00 Test Item Value Reference Range Interpretation Comments Color of Urine by Auto (test lt. yellow code = 52419-3) Appearance of Urine (test code clear clear = 5767-9) Glucose [Mass/volume] in Urine negative negative (test code = 2350-7) bilirubin, urine (test code = negative negative bilirubin, urine) ketone, urine (test code = negative negative ketone, urine) Specific gravity of Urine by 1.015 1.003-1.030 Automated test strip (test code = 48379-0) Hemoglobin [Presence] in Urine large negative H by Test strip (test code = 5794-3) pH of Urine (test code = 6.000 5-9 2756-5) protein urine (UA) (test code = negative negative protein urine (UA)) Urobilinogen [Presence] in 0.2 E.U./dL 0.2-1.0 Urine (test code = 05123-7) Nitrite [Presence] in Urine by negative negative Test strip (test code = 5802-4) urine leukocyte esterase (test negative negative code = urine leukocyte esterase) Erythrocytes [Presence] in =0-3 0-5 Urine (test code = 87705-0) WBC, urine (test code = WBC, =0-2 0-5 urine) Epithelial cells [Presence] in =0-5 0-5 Urine sediment by Light microscopy (test code = 97946-9) bacteria, urine (test code = none detected none detect bacteria, urine) urine culture added? (test code no = urine culture added?) [facility] W Auto Differential panel - [id number] 09:37:00 Test Item Value Reference Range Interpretation Comments white blood count (test code = 6.7 K/uL 4.0-12.3 white blood count) red blood count (test code = red 3.05 M/uL 3.80-5.80 L blood count) hemoglobin (test code = 9.3 g/dL 11.7-17.2 L hemoglobin) hematocrit (test code = 29.4 % 35.0-51.0 L hematocrit) Erythrocyte mean corpuscular 96.4 fL 83-100 volume [Entitic volume] (test code = 18958-1) mean corpuscular hemoglobin (test 30.5 pg 26.8-33.4 [...] 44.7-82.4 leukocytes in Blood (test code = 90063-4) Granulocytes Immature [#/volume] 0.0 K/uL 0.0-0.03 in Blood (test code = 33462-2) lymphocyte% (test code = 13.8 % 10.0-50.0 lymphocyte%) mono % (test code = mono %) 10.6 % 3.9-13.4 eos % (test code = eos %) 6.6 % 0.0-6.4 H Basophils/100 leukocytes in 0.9 % 0.2-1.2 Unspecified specimen (test code = 44358-0) Neutrophils.band form [#/volume] 4.52 K/uL 1.78-5.38 in Blood (test code = 21581-1) Lymphocytes [#/volume] in 0.9 K/uL 1.32-3.57 L Unspecified specimen by Automated count (test code = 83544-4) mono # (test code = mono #) 0.71 K/uL 0.30-0.82 eos # (test code = eos #) 0.44 K/uL 0.04-0.54 basophil # (test code = basophil 0.06 K/uL 0.01-0.08 #) NRBC% (test code = NRBC%) 0 /100 WBC 0-0.2 NRBC# (test code = NRBC#) 0 K/uL [facility] SystemPT/[id number] 09:37:00 Test Item Value Reference Range Interpretation Comments prothrombin time (test code = 10.3 seconds 10.3-12.3 prothrombin time) INR in Blood by Coagulation 0.95 assay (test code = 36897-5) [facility] Systempartial thromboplastin [id number] 09:37:00 Test Item Value Reference Range Interpretation Comments INR in Blood by Coagulation 29.1 seconds 22.5-37.0 assay (test code = 67592-9) [facility] SystemThyrotropin [Units/volume] in Serum or [id number] 09:37:00 Test Item Value Reference Range Interpretation Comments Thyrotropin [Units/volume] in 2.98 uIU/mL 0.36-3.74 Serum or Plasma (test code = 3016-3) [facility] SystemHemoglobin A1c [Mass/volume] in [id number] 09:37:00 Test Item Value Reference Range Interpretation Comments Hemoglobin A1c [Mass/volume] in Blood 4.9 % 4.0-6.0 (test code = 29496-3) [facility] SystemComprehensive metabolic 2000 panel - Serum or Plasma [...] Serum or Plasma (test code = 6768-6) [facility] SystemLipid 1996 panel - Serum or [id number] 09:37:00 Test Item Value Reference Range Interpretation Comments cholesterol level (test code = 104 mg/dL 150-200 L cholesterol level) triglycerides level (test code = 92 mg/dL <150 triglycerides level) HDL cholesterol (test code = HDL 36 mg/dL >55 L cholesterol) LDL cholesterol direct (test code = 55 mg/dL <100 LDL cholesterol direct) cholesterol risk ratio (test code = 2.888 cholesterol risk ratio) [facility] SystemUrinalysis complete W Reflex Culture panel - Urine 2020-01-01 09:37:00 Test Item Value Reference Range Interpretation Comments Color of Urine by Auto (test lt. yellow code = 34600-4) Appearance of Urine (test code clear clear = 5767-9) Glucose [Mass/volume] in Urine negative negative (test code = 2350-7) bilirubin, urine (test code = negative negative bilirubin, urine) ketone, urine (test code = negative negative ketone, urine) Specific gravity of Urine by 1.015 1.003-1.030 Automated test strip (test code = 19871-2) Hemoglobin [Presence] in Urine large negative H by Test strip (test code = 5794-3) pH of Urine (test code = 6.000 5-9 2756-5) protein urine (UA) (test code = negative negative protein urine (UA)) Urobilinogen [Presence] in 0.2 E.U./dL 0.2-1.0 Urine (test code = 62101-4) Nitrite [Presence] in Urine by negative negative Test strip (test code = 5802-4) urine leukocyte esterase (test negative negative code = urine leukocyte esterase) Erythrocytes [Presence] in =0-3 0-5 Urine (test code = 50365-4) WBC, urine (test code = WBC, =0-2 0-5 urine) Epithelial cells [Presence] in =0-5 0-5 Urine sediment by Light microscopy (test code = 23119-4) bacteria, urine (test code = none detected none detect bacteria, urine) urine culture added? (test code no = urine culture added?) [facility] W Auto Differential panel - [id number] 09:37:00 Test Item Value Reference Range Interpretation Comments white blood count (test code = 6.7 K/uL 4.0-12.3 white blood count) red blood count (test code = red 3.05 M/uL 3.80-5.80 L blood count) hemoglobin (test code = 9.3 g/dL 11.7-17.2 L hemoglobin) hematocrit (test code = 29.4 % 35.0-51.0 L hematocrit) Erythrocyte mean corpuscular 96.4 fL 83-100 volume [Entitic volume] (test code = 47120-7) mean corpuscular hemoglobin (test 30.5 pg 26.8-33.4 [...] 44.7-82.4 leukocytes in Blood (test code = 88761-5) Granulocytes Immature [#/volume] 0.0 K/uL 0.0-0.03 in Blood (test code = 53544-0) lymphocyte% (test code = 13.8 % 10.0-50.0 lymphocyte%) mono % (test code = mono %) 10.6 % 3.9-13.4 eos % (test code = eos %) 6.6 % 0.0-6.4 H Basophils/100 leukocytes in 0.9 % 0.2-1.2 Unspecified specimen (test code = 64559-0) Neutrophils.band form [#/volume] 4.52 K/uL 1.78-5.38 in Blood (test code = 81264-2) Lymphocytes [#/volume] in 0.9 K/uL 1.32-3.57 L Unspecified specimen by Automated count (test code = 10105-7) mono # (test code = mono #) 0.71 K/uL 0.30-0.82 eos # (test code = eos #) 0.44 K/uL 0.04-0.54 basophil # (test code = basophil 0.06 K/uL 0.01-0.08 #) NRBC% (test code = NRBC%) 0 /100 WBC 0-0.2 NRBC# (test code = NRBC#) 0 K/uL [facility]PT/[id number] 09:37:00 Test Item Value Reference Range Interpretation Comments prothrombin time (test code = 10.3 seconds 10.3-12.3 prothrombin time) INR in Blood by Coagulation 0.95 assay (test code = 55735-2) [facility]partial thromboplastin [id number] 09:37:00 Test Item Value Reference Range Interpretation Comments INR in Blood by Coagulation 29.1 seconds 22.5-37.0 assay (test code = 59318-8) [facility] SystemThyrotropin [Units/volume] in Serum or [id number] 09:37:00 Test Item Value Reference Range Interpretation Comments Thyrotropin [Units/volume] in 2.98 uIU/mL 0.36-3.74 Serum or Plasma (test code = 3016-3) [facility] SystemHemoglobin A1c [Mass/volume] in [id number] 09:37:00 Test Item Value Reference Range Interpretation Comments Hemoglobin A1c [Mass/volume] in Blood 4.9 % 4.0-6.0 (test code = 73081-7) [facility] SystemComprehensive metabolic 2000 panel - Serum or Plasma [...] Serum or Plasma (test code = 6768-6) [facility] SystemLipid 1996 panel - Serum or [id number] 09:37:00 Test Item Value Reference Range Interpretation Comments cholesterol level (test code = 104 mg/dL 150-200 L cholesterol level) triglycerides level (test code = 92 mg/dL <150 triglycerides level) HDL cholesterol (test code = HDL 36 mg/dL >55 L cholesterol) LDL cholesterol direct (test code = 55 mg/dL <100 LDL cholesterol direct) cholesterol risk ratio (test code = 2.888 cholesterol risk ratio) [facility] SystemUrinalysis complete W Reflex Culture panel - Urine 2020-01-01 09:37:00 Test Item Value Reference Range Interpretation Comments Color of Urine by Auto (test lt. yellow code = 50293-5) Appearance of Urine (test code clear clear = 5767-9) Glucose [Mass/volume] in Urine negative negative (test code = 2350-7) bilirubin, urine (test code = negative negative bilirubin, urine) ketone, urine (test code = negative negative ketone, urine) Specific gravity of Urine by 1.015 1.003-1.030 Automated test strip (test code = 74495-4) Hemoglobin [Presence] in Urine large negative H by Test strip (test code = 5794-3) pH of Urine (test code = 6.000 5-9 2756-5) protein urine (UA) (test code = negative negative protein urine (UA)) Urobilinogen [Presence] in 0.2 E.U./dL 0.2-1.0 Urine (test code = 32422-4) Nitrite [Presence] in Urine by negative negative Test strip (test code = 5802-4) urine leukocyte esterase (test negative negative code = urine leukocyte esterase) Erythrocytes [Presence] in =0-3 0-5 Urine (test code = 01857-6) WBC, urine (test code = WBC, =0-2 0-5 urine) Epithelial cells [Presence] in =0-5 0-5 Urine sediment by Light microscopy (test code = 68226-8) bacteria, urine (test code = none detected none detect bacteria, urine) urine culture added? (test code no = urine culture added?) [facility] W Auto Differential panel - [id number] 09:37:00 Test Item Value Reference Range Interpretation Comments white blood count (test code = 6.7 K/uL 4.0-12.3 white blood count) red blood count (test code = red 3.05 M/uL 3.80-5.80 L blood count) hemoglobin (test code = 9.3 g/dL 11.7-17.2 L hemoglobin) hematocrit (test code = 29.4 % 35.0-51.0 L hematocrit) Erythrocyte mean corpuscular 96.4 fL 83-100 volume [Entitic volume] (test code = 57333-5) mean corpuscular hemoglobin (test 30.5 pg 26.8-33.4 [...] 44.7-82.4 leukocytes in Blood (test code = 33027-8) Granulocytes Immature [#/volume] 0.0 K/uL 0.0-0.03 in Blood (test code = 95181-8) lymphocyte% (test code = 13.8 % 10.0-50.0 lymphocyte%) mono % (test code = mono %) 10.6 % 3.9-13.4 eos % (test code = eos %) 6.6 % 0.0-6.4 H Basophils/100 leukocytes in 0.9 % 0.2-1.2 Unspecified specimen (test code = 79218-9) Neutrophils.band form [#/volume] 4.52 K/uL 1.78-5.38 in Blood (test code = 24868-3) Lymphocytes [#/volume] in 0.9 K/uL 1.32-3.57 L Unspecified specimen by Automated count (test code = 95222-3) mono # (test code = mono #) 0.71 K/uL 0.30-0.82 eos # (test code = eos #) 0.44 K/uL 0.04-0.54 basophil # (test code = basophil 0.06 K/uL 0.01-0.08 #) NRBC% (test code = NRBC%) 0 /100 WBC 0-0.2 NRBC# (test code = NRBC#) 0 K/uL [facility]PT/[id number] 09:37:00 Test Item Value Reference Range Interpretation Comments prothrombin time (test code = 10.3 seconds 10.3-12.3 prothrombin time) INR in Blood by Coagulation 0.95 assay (test code = 23220-5) [facility]partial thromboplastin [id number] 09:37:00 Test Item Value Reference Range Interpretation Comments INR in Blood by Coagulation 29.1 seconds 22.5-37.0 assay (test code = 31537-6) [facility] SystemThyrotropin [Units/volume] in Serum or [id number] 09:37:00 Test Item Value Reference Range Interpretation Comments Thyrotropin [Units/volume] in 2.98 uIU/mL 0.36-3.74 Serum or Plasma (test code = 3016-3) [facility] SystemHemoglobin A1c [Mass/volume] in [id number] 09:37:00 Test Item Value Reference Range Interpretation Comments Hemoglobin A1c [Mass/volume] in Blood 4.9 % 4.0-6.0 (test code = 81545-4) [facility] SystemComprehensive metabolic 2000 panel - Serum or Plasma [...] Serum or Plasma (test code = 6768-6) [facility] SystemLipid 1996 panel - Serum or [id number] 09:37:00 Test Item Value Reference Range Interpretation Comments cholesterol level (test code = 104 mg/dL 150-200 L cholesterol level) triglycerides level (test code = 92 mg/dL <150 triglycerides level) HDL cholesterol (test code = HDL 36 mg/dL >55 L cholesterol) LDL cholesterol direct (test code = 55 mg/dL <100 LDL cholesterol direct) cholesterol risk ratio (test code = 2.888 cholesterol risk ratio) [facility] SystemUrinalysis complete W Reflex Culture panel - Urine 2020-01-01 09:37:00 Test Item Value Reference Range Interpretation Comments Color of Urine by Auto (test lt. yellow code = 95591-4) Appearance of Urine (test code clear clear = 5767-9) Glucose [Mass/volume] in Urine negative negative (test code = 2350-7) bilirubin, urine (test code = negative negative bilirubin, urine) ketone, urine (test code = negative negative ketone, urine) Specific gravity of Urine by 1.015 1.003-1.030 Automated test strip (test code = 60864-2) Hemoglobin [Presence] in Urine large negative H by Test strip (test code = 5794-3) pH of Urine (test code = 6.000 5-9 2756-5) protein urine (UA) (test code = negative negative protein urine (UA)) Urobilinogen [Presence] in 0.2 E.U./dL 0.2-1.0 Urine (test code = 29778-5) Nitrite [Presence] in Urine by negative negative Test strip (test code = 5802-4) urine leukocyte esterase (test negative negative code = urine leukocyte esterase) Erythrocytes [Presence] in =0-3 0-5 Urine (test code = 98942-2) WBC, urine (test code = WBC, =0-2 0-5 urine) Epithelial cells [Presence] in =0-5 0-5 Urine sediment by Light microscopy (test code = 46348-1) bacteria, urine (test code = none detected none detect bacteria, urine) urine culture added? (test code no = urine culture added?) [facility] Systemmleveli2019-09-30 11:20:00 Test Item Value Reference Range Interpretation Comments Surgical pathology see separate pathology study (test code = report. 53109-5) [facility] SystemMethicillin resistant Staphylococcus aureus [Presence] in Unspecified specimen by Organism specific [id number] 06:40:00Results [facility] W Auto Differential panel - [id number] 01:50:00 Test Item Value Reference Range Interpretation Comments white blood count (test code = 4.1 K/uL 4.0-12.3 white blood count) red blood count (test code = red 2.91 M/uL 3.80-5.80 L blood count) hemoglobin (test code = 9.3 g/dL 11.7-17.2 L hemoglobin) hematocrit (test code = 28.5 % 35.0-51.0 L hematocrit) Erythrocyte mean corpuscular 97.9 fL 83-100 volume [Entitic volume] (test code = 15339-5) mean corpuscular hemoglobin (test 32.0 pg 26.8-33.4 [...] 44.7-82.4 leukocytes in Blood (test code = 18975-6) Granulocytes Immature [#/volume] 0.0 K/uL 0.0-0.03 in Blood (test code = 55068-0) lymphocyte% (test code = 23.4 % 10.0-50.0 lymphocyte%) mono % (test code = mono %) 9.4 % 3.9-13.4 eos % (test code = eos %) 4.4 % 0.0-6.4 Basophils/100 leukocytes in 0.5 % 0.2-1.2 Unspecified specimen (test code = 24828-1) Neutrophils.band form [#/volume] 2.52 K/uL 1.78-5.38 in Blood (test code = 91681-1) Lymphocytes [#/volume] in 1.0 K/uL 1.32-3.57 L Unspecified specimen by Automated count (test code = 76123-6) mono # (test code = mono #) 0.38 K/uL 0.30-0.82 eos # (test code = eos #) 0.18 K/uL 0.04-0.54 basophil # (test code = basophil 0.02 K/uL 0.01-0.08 #) NRBC% (test code = NRBC%) 0 /100 WBC 0-0.2 NRBC# (test code = NRBC#) 0 K/uL [facility] Systemdifferential panel, [id number] 01:50:00 NeutrophilsBandLymphocyteAtypical LymphMonocyteEosinophilBasophilDifferential CommentPlatelet EstimatePlatelet MorphologyPoikilocytosisToxic GranulationBurr CellsMaGulfport [facility]al Health SystemBasic metabolic 2000 panel - Serum or Plasma [...] = calcium 8.5 mg/dL 8.8-10.2 L level) [facility] SystemUrinalysis complete panel - [id number] 12:59:00 Test Item Value Reference Range Interpretation Comments Color of Urine by Auto (test colorless code = 08092-7) Appearance of Urine (test code clear clear = 5767-9) Glucose [Presence] in Urine by negative negative Automated test strip (test code = 03413-6) Bilirubin.total [Mass/volume] negative negative in Urine (test code = 1978-6) Ketones [Mass/volume] in Urine negative negative by Automated test strip (test code = 16633-8) Specific gravity of Urine by 1.011 1.003-1.030 Automated test strip (test code = 06013-1) blood urine (test code = blood negative negative urine) pH of Urine (test code = 5.000 5-9 2756-5) protein urine (UA) (test code = negative negative protein urine (UA)) Urobilinogen [Presence] in normal 0.2-1.0 Urine (test code = 48119-9) Nitrite [Presence] in Urine by negative negative Test strip (test code = 5802-4) Leukocyte esterase [Presence] negative negative in Urine by Automated test strip (test code = 03590-1) Erythrocytes [#/volume] in =1-5 0-5 Urine by Automated count (test code = 798-9) Leukocytes [#/area] in Urine <1 0-5 sediment by Automated count (test code = 68749-3) Epithelial cells [Presence] in <1 0-5 Urine sediment by Light microscopy (test code = 05638-4) Bacteria identified in Urine by none detected none detect Culture (test code = 630-4) Casts [#/area] in Urine none detected none detect sediment by Automated count (test code = 43577-8) urine culture added? (test code no = urine culture added?) [facility] SystemCB W Auto Differential panel - [id number] 01:58:00 Test Item Value Reference Range Interpretation Comments white blood count (test code = 5.6 K/uL 4.0-12.3 white blood count) red blood count (test code = red 3.24 M/uL 3.80-5.80 L blood count) hemoglobin (test code = 10.3 g/dL 11.7-17.2 L hemoglobin) hematocrit (test code = 30.9 % 35.0-51.0 L hematocrit) Erythrocyte mean corpuscular 95.4 fL 83-100 volume [Entitic volume] (test code = 40395-7) mean corpuscular hemoglobin (test 31.8 pg 26.8-33.4 [...] 44.7-82.4 leukocytes in Blood (test code = 73056-3) Granulocytes Immature [#/volume] 0.0 K/uL 0.0-0.03 in Blood (test code = 09008-4) lymphocyte% (test code = 17.4 % 10.0-50.0 lymphocyte%) mono % (test code = mono %) 7.1 % 3.9-13.4 eos % (test code = eos %) 3.9 % 0.0-6.4 Basophils/100 leukocytes in 0.4 % 0.2-1.2 Unspecified specimen (test code = 14757-8) Neutrophils.band form [#/volume] 3.99 K/uL 1.78-5.38 in Blood (test code = 81153-5) Lymphocytes [#/volume] in 1.0 K/uL 1.32-3.57 L Unspecified specimen by Automated count (test code = 51146-9) mono # (test code = mono #) 0.40 K/uL 0.30-0.82 eos # (test code = eos #) 0.22 K/uL 0.04-0.54 basophil # (test code = basophil 0.02 K/uL 0.01-0.08 #) NRBC% (test code = NRBC%) 0 /100 WBC 0-0.2 NRBC# (test code = NRBC#) 0 K/uL [facility] metabolic 2000 panel - Serum or [id number] 01:58:00 Test Item Value Reference Range Interpretation [...] = calcium 8.6 mg/dL 8.8-10.2 L level) [facility] W Auto Differential panel - [id number] 03:36:00 Test Item Value Reference Range Interpretation [...] H volume [Entitic volume] (test code = 03247-3) mean corpuscular hemoglobin (test 32.0 pg 26.8-33.4 [...] 44.7-82.4 leukocytes in Blood (test code = 94262-3) Granulocytes Immature [#/volume] 0.0 K/uL 0.0-0.03 in Blood (test code = 79420-7) lymphocyte% (test code = 19.0 % 10.0-50.0 lymphocyte%) mono % (test code = mono %) 8.6 % 3.9-13.4 eos % (test code = eos %) 2.1 % 0.0-6.4 Basophils/100 leukocytes in 0.4 % 0.2-1.2 Unspecified specimen (test code = 34542-5) Neutrophils.band form [#/volume] 3.33 K/uL 1.78-5.38 in Blood (test code = 54174-7) Lymphocytes [#/volume] in 0.9 K/uL 1.32-3.57 L Unspecified specimen by Automated count (test code = 38592-0) mono # (test code = mono #) 0.41 K/uL 0.30-0.82 eos # (test code = eos #) 0.10 K/uL 0.04-0.54 basophil # (test code = basophil 0.02 K/uL 0.01-0.08 #) NRBC% (test code = NRBC%) 0 /100 WBC 0-0.2 NRBC# (test code = NRBC#) 0 K/uL [facility] Systemdifferential panel, [id number] 03:36:00 NeutrophilsBandLymphocyteAtypical LymphMonocyteEosinophilBasophilPlatelet EstimatePlatelet MorphologyMacrocytosisToxic GranulationSmudge CellsMatagoClaiborne County Medical CenterComprehensive metabolic 2000 panel - Serum or [id number] 03:36:00 Test Item Value Reference Range Interpretation [...] Serum or Plasma (test code = 6768-6) [facility] GroupMagnesium [Moles/volume] in Unspecified specimen 2019-08-14 03:36:00 Test Item Value Reference Range Interpretation Comments magnesium level (test code = 1.8 mg/dL 1.6-2.4 magnesium level) [facility] GroupNatriuretic peptide.B prohormone N-Terminal [Mass/volume] in Serum or [id number] 03:36:00 Test Item Value Reference Range Interpretation Comments N-term pro natriuretic peptide 3837 pg/mL 0-450 H (test code = N-term pro natriuretic peptide) [facility] W Auto Differential panel - [id number] 09:26:00 Test Item Value Reference Range Interpretation Comments white blood count (test code = 7.1 K/uL 4.0-12.3 white blood count) red blood count (test code = red 3.50 M/uL 3.80-5.80 L blood count) hemoglobin (test code = 11.2 g/dL 11.7-17.2 L hemoglobin) hematocrit (test code = 34.3 % 35.0-51.0 L hematocrit) Erythrocyte mean corpuscular 98.0 fL 83-100 volume [Entitic volume] (test code = 04560-3) mean corpuscular hemoglobin (test 32.0 pg 26.8-33.4 [...] 44.7-82.4 leukocytes in Blood (test code = 59405-7) Granulocytes Immature [#/volume] 0.0 K/uL 0.0-0.03 in Blood (test code = 78772-7) lymphocyte% (test code = 16.1 % 10.0-50.0 lymphocyte%) mono % (test code = mono %) 7.4 % 3.9-13.4 eos % (test code = eos %) 1.6 % 0.0-6.4 Basophils/100 leukocytes in 0.4 % 0.2-1.2 Unspecified specimen (test code = 25573-0) Neutrophils.band form [#/volume] 5.25 K/uL 1.78-5.38 in Blood (test code = 57135-7) Lymphocytes [#/volume] in 1.1 K/uL 1.32-3.57 L Unspecified specimen by Automated count (test code = 75834-4) mono # (test code = mono #) 0.52 K/uL 0.30-0.82 eos # (test code = eos #) 0.11 K/uL 0.04-0.54 basophil # (test code = basophil 0.03 K/uL 0.01-0.08 #) NRBC% (test code = NRBC%) 0 /100 WBC 0-0.2 NRBC# (test code = NRBC#) 0 K/uL [facility] Systemdifferent[facility] panel, [id number] 09:26:00 NeutrophilsBandLymphocyteAtypical LymphMonocyteEosinophilBasophilPlatelet EstimatePlatelet MorphologyMacrocytosisMaGulfport Behavioral Health SystemPT/[id number] 09:26:00 Test Item Value Reference Range Interpretation Comments prothrombin time (test code = 10.3 seconds 10.3-12.3 prothrombin time) INR in Blood by Coagulation 0.93 assay (test code = 09707-0) [facility] Systempartial thromboplastin [id number] 09:26:00 Test Item Value Reference Range Interpretation Comments INR in Blood by Coagulation 29.4 seconds 22.5-37.0 assay (test code = 75136-7) [facility] SystemComprehensive metabolic 2000 panel - Serum or Plasma [...] Serum or Plasma (test code = 6768-6) [facility] GroupCreatine kinase [Enzymatic activity/volume] in Serum or [id number] 09:26:00 Test Item Value Reference Range Interpretation Comments creatine kinase (test code = creatine 119 U/L 20-200 kinase) [facility] SystemNatriuretic peptide.B prohormone N-Terminal [Mass/volume] in Serum or [id number] 09:26:00 Test Item Value Reference Range Interpretation Comments N-term pro natriuretic peptide 8212 pg/mL 0-450 H (test code = N-term pro natriuretic peptide) [facility] SystemTroponin I.cardiac [Mass/volume] in [id number] 09:26:00 Test Item Value Reference Range Interpretation Comments cardiac troponin I (test code = cardiac <0.30 0.0-0.5 troponin I) [facility] SystemCreatine kinase.MB [Mass/volume] in Serum or Plasma 2019-08-13 09:26:00 Test Item Value Reference Range Interpretation Comments mass creatinine kinase-mb (test 5.6 NG/mL 0.0-3.6 H code = mass creatinine kinase-mb) [facility] SystemBacteria identified in Abscess by Aerobe culture 2019-07-01 02:26:00Bacteria Absc Aerobe CultMataBarre City Hospital Groupantibiotic sensitivity testing, [id number] 02:26:00 Test Item Value Reference Range Interpretation [...] Minimum inhibitory concentration (KAUSHIK) (test code = 23765-5) Ceftriaxone [Susceptibility] by <8 Minimum inhibitory concentration (KAUSHIK) (test code = 141-2) Imipenem [Susceptibility] by <4 Minimum inhibitory concentration (KAUSHIK) (test code = 279-0) Ampicillin+Sulbactam =8/4 [Susceptibility] by Minimum inhibitory concentration (KAUSHIK) (test code = 32-3) Linezolid [Susceptibility] by 2 ug/mL Minimum inhibitory concentration (KAUSHIK) (test code = 92073-7) Meropenem [Susceptibility] by <4 Minimum inhibitory concentration (KAUSHIK) (test code = 6652-2) Daptomycin [Susceptibility] by <0.5 Minimum inhibitory concentration (KAUSHIK) (test code = 79292-8) Rifampin [Susceptibility] by <1 Minimum inhibitory concentration (KAUSHIK) (test code = 428-3) [facility] SystemThyroid Stimulating [id number] 22:48:11 Test Item Value Reference Range Interpretation Comments TSH (test code = TSH) 3.010 mIU/mL 0.270-4.200 PSA [id number] 22:23:33 Test Item Value Reference Range Interpretation [...] with non-prostatic c arcinoma. Pro B Natriuretic [id number] 22:23:33 Test Item Value Reference Range Interpretation Comments NT-proBNP (test code = NT-proBNP) 628 pg/mL 0-449 H Comprehensive Metabolic [id number] 22:17:15 Test Item Value Reference Range Interpretation [...] A/G 2.0 ratio N Ratio) Comprehensive Metabolic [id number] 22:17:15 Test Item Value Reference Range Interpretation [...] the National Kidney Foundation, http://nkdep.ni h.gov Lipid [id number] 22:17:15 Test Item Value Reference Range Interpretation Comments Cholesterol Total 85 mg/dL 0-200 RISK OF HE ART (test code = DISEASEPublishe d by Cholesterol Total) [place] [employer] Laura lyte Optimal Borderl ine [...] LDL/HDL Ratio=L DL Calc/HDL Chol Comprehensive Metabolic [id number] 22:17:15 Test Item Value Reference Range Interpretation [...] ag e have not been validated by [facility] MDRD study and should be interpreted wit [...] ag e have not been validated by [facility] MDRD study and should be interpreted wit h caution. eGFR R esult Interpretation: eGFR > or = 60 is in the Normal RangeeGF R < 60 may mean kid radha diseaseeGFR < 1 5 may mean kidney failure Rang es recommended by the National Kidney Foundation, http://nkdep.ni h.gov XR Chest 1 View [id number] 07:58:22Patient: TYLER CLAYTON Date/Time03/13/2019 07:40 CDTReason for [...] chest CT, nonemergent. Final Dictated by: MD Smith Eniola FDictated DT/TM: 03/13/2019 7:47 amSigned by: MD Smith Eniola FSigned (Electronic Signature): 03/13/2019 7:58 amNM BONE SCAN WHOLE [id number] 13:21:32CLINICAL INDICATION: dx: c34.11, Malignant neoplasm of upper lobe, right bronchus or lung, mets to the ribsMODALITY: Insticator dual head gamma cameraTECHNIQUE: 25 mCi Tc 99m MDP are injected IV.After a suitable time delay, whole body imaging [...] nonew lesions suggesting active osseous metastasis.PQRS 147: 3570F
[2021-11-08 15:21] LABS: Absolute Lymphocytes (CBC) 0.6 K/uL (0.7-4.9); Basophils % 0.3 % (0-1.3); Hematocrit 25.2 % (39.6-49.0); Lymphocytes % 4.5 % (15.3-44.8); MPV 7.7 fL (7.6-11.3); RBC Red Blood Cell Count 2.49 M/uL (4.33-5.43)
[2021-11-08 15:22] LABS: Protime INR 1.08
--- NOTE | 2021-11-08 15:33 | RAD REPORT ---
EXAM DESCRIPTION: RAD - Chest Single View - 11/08/2021 3:06 pm CLINICAL HISTORY: DYSPNEA COMPARISON: Chest Single View dated 10/30/2021; Chest Single View dated 01/06/2021; CHEST SINGLE VIEW dated 05/19/2013; CHEST SINGLE VIEW dated 06/05/2010; Thorax Wo Con dated 10/10/2021; Ct Skull/Thigh da sarah 11/02/2021 FINDINGS: Lines: Pacemaker. Right-sided chest tube again noted. Left IJ approach Port-A-Cath. Lungs: Scarring in the right lung apex. Right hilar adenopathy again noted. Pleural: Very small right pleural effusion. Cardiac: The heart size is within normal limits. Bones: No acute fractures. Other: IMPRESSION: Similar aeration of the lungs with known right-sided lung neoplasm and hilar adenopathy. No acute superimposed process identified. A tunneled pleural catheter is again noted in the right he mithorax. Only a small volume of residual effusion is present. No pneumothorax.
[2021-11-08] MEDS ORDERED: PANTOPRAZOLE 40 MG INJ ONE (15:38)
[2021-11-08] MEDS ORDERED: NA CHLORIDE 0.9% 250 ML ONE ×2 (15:39→18:42)
[2021-11-08 15:41] LABS: Albumin 2.8 g/dL (3.4-5.0); Bilirubin Direct 0.3 mg/dL (0-0.2); Bilirubin Total 0.7 mg/dL (0.2-1.0); Magnesium 1.7 mg/dL (1.8-2.4); Potassium 4.4 mmol/L (3.5-5.1); Protein, Total 6.1 g/dL (6.4-8.2); Troponin (Emerg Dept Use Only) 0.02 ng/mL (0.0-0.045)
[2021-11-08] MEDS ORDERED: NA CHLORIDE 0.9% 500 ML ONE (16:29)
--- NOTE | 2021-11-08 17:48 | ER ---
Nurse's Notes [facility] Name: Tomer Mckeon Age: 81 yrs Sex: Male : 1940 Arrival Date: 11/08/2021 Time: 14:30 Bed 3 Private MD: Tomer Mcdonald E Diagnosis: GI Bleed/ Gastrointestinal hemorrhage, unspecified;Anemia, unspecified Presentation: 11/08 14:46 Chief complaint: Spouse and/or significant other states: vomiting blood since this iw morning and has blood in stool, has hx of lung cancer , is being treated by Dr. Cisneros. Coronavirus screen: At this time, the client does not indicate any symptoms associated with coronavirus-19. Ebola Screen: Patient negative for fever greater than or equal to 101.5 degrees Fahrenheit, and additional compatible Ebola Virus Disease symptoms Patient denies exposure to infectious person. Patient denies travel to an Ebola-affected area in the 21 days before illness onset. No symptoms or risks identified at this time. Onset of symptoms was November 08, 2021. 14:46 Method Of Arrival: Wheelchair iw 14:46 Acuity: PHUONG 2 iw 17:18 Risk Assessment: Do you want to hurt yourself or someone else? Patient reports no doe desire to harm self or others. 17:19 Initial Sepsis Screen: Does the patient meet any 2 criteria? Systolic BP < 90 mmHg. No. doe Patient's initial sepsis screen is negative. Does the patient have a suspected source of infection? No. Patient's initial sepsis screen is negative. Triage Assessment: 17:17 General: Appears uncomfortable, Behavior is calm, cooperative. Pain: Complains of pain doe in chest and abdomen. GI: Reports Patient currently denies abdominal pain, bloody stool, nausea, vomiting blood. Historical: - Allergies: 14:47 HYDRALAZINE; iw - Home Meds: 17:19 amlodipine 5 mg tab 1 tab once daily [Active]; aspirin 81 mg Oral chew 1 tab once daily doe [Active]; azelastine 0.15 % (205.5 mcg) nasal spry 1 spray once daily [Active]; azelastine 137 mcg (0.1 %) nasal spra once a day [Active]; B12 1000 mcg daily [Active]; calcium 1200 mg with Vit D 25 mcg daily [Active]; calcium carbonate 600 mg (1,500 mg) Oral tab daily [Active]; chlorthalidone 25 mg Oral tab 1 tab once daily [Active]; Clonidine Oral [Active]; clonidine as needed for hypertension [Active]; clonidine HCl 0.1 mg Oral tab as needed [Active]; Eliquis 5 mg Oral tab 1 tab 2 times per day [Active]; finasteride 5 mg Oral tab once daily [Active]; flecainide 150 mg Oral tab [Active]; fludrocortisone 0.1 mg Oral tab 1 tab once daily [Active]; folic acid 400 mcg Oral tab 1 tab once daily [Active]; folic acid 800 mcg Oral tab 1 tab once daily [Active]; furosemide 80 mg Oral tab 1 tab once daily [Active]; furosemide 40 mg Oral tab 1 tab once daily [Active]; gabapentin 600 mg Oral tab 1 tab 3 times per day [Active]; hydrocodone-acetaminophen 7.5-325 mg Oral tab 1 tab every 4-6 hours [Active]; - PMHx: 14:47 Gastroparesis; GI Bleed; Hypertension; Lung Cancer; neuropathy; iw - Immunization history:: Adult Immunizations up to date. - Social history:: Smoking status: Patient denies any tobacco usage or history of. Screenin:51 Abuse screen: Denies threats or abuse. Denies injuries from another. Nutritional doe screening: No deficits noted. Tuberculosis screening: No symptoms or risk factors identified. Fall Risk IV access (20 points). Assessment: 15:51 Pain: Denies pain. GI: Reports bloody stool. doe 15:52 GI: Reports nausea, vomiting. doe 19:42 General: Reports " I dont alright, I was told they would give me something to relax. My tw5 stomach is still hurting me.". Pain: Complains of pain in abdomen Pain currently is 5 out of 10 on a pain scale. Derm: Skin is intact, is thin, Skin is pale. Vital Signs: 14:48 BP 102 / 57; Resp 16; iw 15:49 BP 93 / 42; Pulse 80; Resp 16; Pulse Ox 100% on R/A; doe 17:16 BP 113 / 82; Pulse 80; Resp 15; Pulse Ox 100% on R/A; doe 18:38 BP 117 / 52; Pulse 80; Resp 16; Pulse Ox 100% on R/A; doe 19:42 BP 138 / 57; Pulse 80; Resp 18; Pulse Ox 100% on R/A; tw5 20:15 Pain 4/10; tw5 ED Course: 14:30 Patient arrived in ED. mr 14:31 Tomer Mcdonald MD is Private Physician. mr 14:40 Moses Navarro PA is PHCP. jr8 14:40 Rodney Garcia MD is Attending Physician. jr8 14:47 Triage completed. iw 14:48 Arm band placed on. iw 14:52 Initial lab(s) drawn, by me, sent to lab. EKG done, by ED staff, reviewed by Moses dh3 Melanie CORADO T\\T\\S collected, blood band applied to patient. Inserted saline lock: 20 gauge in left antecubital area, using aseptic technique. Blood collected. 15:06 XRAY Chest (1 view) In Process Unspecified. EDMS 15:24 Mary Dawn is Primary Nurse. jg9 15:51 Patient has correct armband on for positive identification. Placed in gown. Bed in low doe position. 15:51 No provider procedures requiring assistance completed. Inserted. doe 16:17 initiated transfer to [facility]. bd 16:30 pt denied at [facility] due to no icu beds available at this time. initiated transfer bd to [facility]. 16:47 pt denied at [facility] due to no icu beds. initiated transfer to [facility]. 19:42 transfer transportation to receiving facility. tw5 19:42 environmental monitoring technician on. Pulse ox on. NIBP on. Door closed. Noise minimized. Lights dimmed. tw5 Moved to private room. Warm blanket given. Verbal reassurance given. 19:42 Accessed [facility]. tw5 19:49 Bb Add On Sent. tw5 19:49 Platelets, Leukored Pheresis Sent. tw5 19:49 RBC Leukoreduced (Pheresis 2) Sent. tw5 20:16 Packed RBC Leukored Sent. tw5 Administered Medications: 15:49 Drug: ProTONIX (pantoprazole) 40 mg Route: IVP; Site: left antecubital; doe 15:49 Follow up: Response: No adverse reaction doe 20:16 Follow up: Response: No adverse reaction tw5 15:49 Drug: ProTONIX (pantoprazole) 8 mg/hr Route: IV; Rate: 25 ml/hr; Site: left antecubital;doe 20:16 Follow up: Response: No adverse reaction; IV Status: Completed infusion 5 19:49 Drug: morphine 2 mg Route: IVP; Site: left antecubital; tw5 20:15 Follow up: Pain 4/10 Adult; Response: No adverse reaction; Pain is decreased tw5 19:49 Drug: Zofran (Ondansetron) 4 mg Route: IVP; Site: left antecubital; tw5 20:15 Follow up: Response: No adverse reaction Outcome: 17:47 ER care complete, transfer ordered by jrValerie 20:17 Patient left the ED. Signatures: Dispatcher [employer] EDMS Roopa Murguia, Ivonne Rose, RN RN Moses Conroy PA PA jr8 Heather Rehman3 Matilde Colindres tw5 Mary Dawng9 DustyStageChelo holden
--- NOTE | 2021-11-08 17:48 | EDPHYS ---
Physician Documentation [facility] Name: Tomer Mckeon Age: 81 yrs Sex: Male : 1940 Arrival Date: 11/08/2021 Time: 14:30 Bed 3 Private MD: Tomer Mcdonald E ED Physician Rodney Garcia HPI: 11/08 16:29 This 81 yrs old Male presents to ER via Wheelchair with complaints of Bloody Stools, jr8 Pain All Over, Vomiting blood. 16:29 The patient presents to the emergency department vomiting blood, a moderate amount, jr8 bright red, 1 times since symptom onset. Onset: The symptoms/episode began/occurred acutely, today. Abdominal pain: described as dull. Modifying factors: The symptoms are alleviated by nothing, the symptoms are aggravated by nothing. Associated signs and symptoms: Pertinent positives: syncope. Severity of symptoms: At their worst the symptoms were moderate in the emergency department the symptoms are unchanged. It is unknown whether or not the patient has had similar symptoms in the past. The patient has been recently seen by a physician:. This is a 81-year-old male patient with a history of recurrent lung cancer that presented to the emergency room after having syncopal episode secondary to hematemesis and hematochezia that started acutely today. Patient has a history of gastric ulcers with gastric revision in the past. Has been doing well until today. Family member stated that he had large maroon bowel movement at home. While trying to get to his doctor's office for cancer follow-up had hematemesis followed by syncope. Was immediately brought to emergency room for further evaluation at that time.. Historical: - Allergies: 14:47 HYDRALAZINE; iw - Home Meds: 17:19 amlodipine 5 mg tab 1 tab once daily [Active]; aspirin 81 mg Oral chew 1 tab once daily doe [Active]; azelastine 0.15 % (205.5 mcg) nasal spry 1 spray once daily [Active]; azelastine 137 mcg (0.1 %) nasal spra once a day [Active]; B12 1000 mcg daily [Active]; calcium 1200 mg with Vit D 25 mcg daily [Active]; calcium carbonate 600 mg (1,500 mg) Oral tab daily [Active]; chlorthalidone 25 mg Oral tab 1 tab once daily [Active]; Clonidine Oral [Active]; clonidine as needed for hypertension [Active]; clonidine HCl 0.1 mg Oral tab as needed [Active]; Eliquis 5 mg Oral tab 1 tab 2 times per day [Active]; finasteride 5 mg Oral tab once daily [Active]; flecainide 150 mg Oral tab [Active]; fludrocortisone 0.1 mg Oral tab 1 tab once daily [Active]; folic acid 400 mcg Oral tab 1 tab once daily [Active]; folic acid 800 mcg Oral tab 1 tab once daily [Active]; furosemide 80 mg Oral tab 1 tab once daily [Active]; furosemide 40 mg Oral tab 1 tab once daily [Active]; gabapentin 600 mg Oral tab 1 tab 3 times per day [Active]; hydrocodone-acetaminophen 7.5-325 mg Oral tab 1 tab every 4-6 hours [Active]; - PMHx: 14:47 Gastroparesis; GI Bleed; Hypertension; Lung Cancer; neuropathy; iw - Immunization history:: Adult Immunizations up to date. - Social history:: Smoking status: Patient denies any tobacco usage or history of. ROS: 16:29 Eyes: Negative for injury, pain, redness, and discharge, ENT: Negative for injury, jr8 pain, and discharge, Neck: Negative for injury, pain, and swelling, Cardiovascular: Negative for chest pain, palpitations, and edema, Respiratory: Negative for shortness of breath, cough, wheezing, and pleuritic chest pain, Back: Negative for injury and pain, MS/Extremity: Negative for injury and deformity, Skin: Negative for injury, rash, and discoloration. 16:29 Abdomen/GI: Positive for abdominal pain, hematemesis, rectal bleeding. 16:29 Neuro: Positive for syncope. Exam: 16:29 ENT: Nares patent. No nasal discharge, no septal abnormalities noted. Tympanic jr8 membranes are normal and external auditory canals are clear. Oropharynx with no redness, swelling, or masses, exudates, or evidence of obstruction, uvula midline. Mucous membranes moist. Neck: Trachea midline, no thyromegaly or masses palpated, and no cervical lymphadenopathy. Supple, full range of motion without nuchal rigidity, or vertebral point tenderness. No Meningismus. Cardiovascular: Regular rate and rhythm with a normal S1 and S2. No gallops, murmurs, or rubs. Normal PMI, no JVD. No pulse deficits. Respiratory: Lungs have equal breath sounds bilaterally, clear to auscultation and percussion. No rales, rhonchi or wheezes noted. No increased work of breathing, no retractions or nasal flaring. MS/ Extremity: Pulses equal, no cyanosis. Neurovascular intact. Full, normal range of motion. Neuro: Awake and alert, GCS 15, oriented to person, place, time, and situation. Cranial nerves II-XII grossly intact. Motor strength 5/5 in all extremities. Sensory grossly intact. 16:29 Eyes: Periorbital structures: appear normal, Pupils: equal, round, and reactive to light and accomodation, Extraocular movements: intact throughout, Conjunctiva: pale, bilaterally, Corneas: are normal, Sclera: no appreciated abnormality. 16:29 Abdomen/GI: Inspection: abdomen appears normal, Bowel sounds: active, all quadrants, Palpation: soft, in all quadrants, mild abdominal tenderness, in the epigastric area, mass, is not appreciated, rebound tenderness, is not appreciated, voluntary guarding, is not appreciated, involuntary guarding, is not appreciated, no appreciated organomegaly, Indicators: McBurney's point is not tender, Campbell's sign is negative, Rovsing's sign is negative, Liver: tenderness, is not appreciated. 16:29 Skin: Appearance: Color: pale. Vital Signs: 14:48 BP 102 / 57; Resp 16; iw 15:49 BP 93 / 42; Pulse 80; Resp 16; Pulse Ox 100% on R/A; doe 17:16 BP 113 / 82; Pulse 80; Resp 15; Pulse Ox 100% on R/A; doe 18:38 BP 117 / 52; Pulse 80; Resp 16; Pulse Ox 100% on R/A; doe 19:42 BP 138 / 57; Pulse 80; Resp 18; Pulse Ox 100% on R/A; tw5 20:15 Pain 4/10; tw5 MDM: 14:54 Patient medically screened. jr8 17:45 Data reviewed: vital signs, nurses notes, lab test result(s), EKG, radiologic studies, jr8 plain films. Data interpreted: Pulse oximetry: on room air is 100 %. Interpretation: normal. Counseling: I had a detailed discussion with the patient and/or guardian regarding: the historical points, exam findings, and any diagnostic results supporting the discharge/admit diagnosis, lab results, radiology results, the need to transfer to another facility, [facility] does not immediately have the required specialist. ED course: Spoke with Hospitalist at [facility] for transfer as we don't have GI. Accepted patient to SICU for further evaluation of patient . 11/08 14:54 Order name: Basic Metabolic Panel; Complete Time: 15:50 [facility] 11/08 14:54 Order name: CBC with Diff; Complete Time: 10:58 [facility] 11/08 14:54 Order name: LFT's; Complete Time: 15:50 [facility] 11/08 14:54 Order name: Magnesium; Complete Time: 15:50 [facility] 11/08 14:54 Order name: NT PRO-BNP; Complete Time: 15:50 [facility] 11/08 14:54 Order name: PT-INR; Complete Time: 15:26 [facility] 11/08 14:54 Order name: Troponin (emerg Dept Use Only); Complete Time: 15:50 [facility] 11/08 15:29 Order name: SARS-COV-2 RT PCR (Document "Date of Onset" if Symptomatic); Complete Time: [facility] 17:12 11/08 16:13 Order name: Packed RBC Leukored [facility] 11/08 16:13 Order name: RBC Leukoreduced (Pheresis 2) [facility] 11/08 14:54 Order name: XRAY Chest (1 view); Complete Time: 15:50 [facility] 11/08 14:54 Order name: EKG; Complete Time: 14:55 [facility] 11/08 14:54 Order name: Cardiac monitoring; Complete Time: 15:06 [facility] 11/08 14:54 Order name: EKG - Nurse/Tech; Complete Time: 15:06 [facility] 11/08 14:54 Order name: IV Saline Lock; Complete Time: 15:06 [facility] 11/08 14:54 Order name: Labs collected and sent; Complete Time: 15:06 [facility] 11/08 14:54 Order name: O2 Per Protocol; Complete Time: 15: [facility] 11/08 16:25 Order name: ABO/RH typing [facility] 11/08 16:25 Order name: Antibody Screen [facility] 11/08 17:59 Order name: Bb Add On bd 11/08 18:01 Order name: Platelets, Leukored Pheresis [facility] 11/08 18:54 Order name: CBC Smear Scan; Complete Time: 10:58 EDMS 11/08 14:54 Order name: O2 Sat Monitoring; Complete Time: 15:06 jr8 11/08 15:51 Order name: Transfuse; Complete Time: 19:29 jr8 Administered Medications: 15:49 Drug: ProTONIX (pantoprazole) 40 mg Route: IVP; Site: left antecubital; doe 15:49 Follow up: Response: No adverse reaction doe 20:16 Follow up: Response: No adverse reaction tw5 15:49 Drug: ProTONIX (pantoprazole) 8 mg/hr Route: IV; Rate: 25 ml/hr; Site: left antecubital;doe 20:16 Follow up: Response: No adverse reaction; IV Status: Completed infusion tw5 19:49 Drug: morphine 2 mg Route: IVP; Site: left antecubital; tw5 20:15 Follow up: Pain 4/10 Adult; Response: No adverse reaction; Pain is decreased tw5 19:49 Drug: Zofran (Ondansetron) 4 mg Route: IVP; Site: left antecubital; tw5 20:15 Follow up: Response: No adverse reaction tw5 Disposition: 11/09 08:15 Co-signature as Attending Physician, Rodney Garcia MD I agree with the assessment and kdr plan of care. Disposition Summary: 11/08/21 17:47 Transfer Ordered Transfer Location: [place] [address] Reason: Higher level of care jr8 Condition: Fair jr8 Problem: new jr8 Symptoms: have improved jr8 Accepting Physician: Dr. Soriano(11/08/21 20:17) tw5 Diagnosis - GI Bleed/ Gastrointestinal hemorrhage, unspecified jr8 - Anemia, unspecified jr8 Forms: - Medication Reconciliation Form jr8 - SBAR form jr8 Signatures: Dispatcher [employer] EDRI Rodney Garcia MD MD kdr Williams, Irene, RN RN iw Nieto, Roman, MD MD rn Roszak, Josh, PA PA [facility] Matilde Colindres tw5 Citlalli-StagerChelo Corrections: (The following items were deleted from the chart) 11/08 16:24 15:52 PACKED RBC LEUKORED -1+BB.LAB.BRZ ordered. EDMS EDMS 16:24 15:52 ABO/RH typing ordered. EDMS EDMS 15:52 Antibody Screen ordered. EDMS EDMS 14:55 TYPE AND SCREEN+BB.LAB.BRZ ordered. EDMS EDMS 17:47 Dr. Soriano jr8 tw5
[2021-11-08 18:54] LABS: Anisocytosis 1+; Blood Morphology Comment NOTED (NOT SEEN); Macrocytosis 1+; Platelet Estimate ADEQ; White Blood Cell Scan OK (OK)
[2021-11-08] MEDS ORDERED: ONDANSETRON 4 MG/2 ML VIAL ONE (19:44)
[2021-11-08] MEDS ORDERED: MORPHINE 2 MG/ML SYR ONE (19:44)
[2021-11-08 20:36] VITALS: O2SAT 100
[2021-11-08 20:42] VITALS: BP 138/57
== END 2021-11-08 20:17 | disposition short-term general hospital (02) ==
LOC: ER 14:26
PROC: 30233N1 Transfusion of Nonautologous Red Blood Cells into Peripheral Vein, Percutaneous Approach (ICD-10-PCS; principal; 2021-11-08)
DX: D64.9 Anemia, unspecified (principal); I10 Essential (primary) hypertension; Z20.822 Contact with and (suspected) exposure to COVID-19; Z85.118 Personal history of other malignant neoplasm of bronchus and lung; Z79.01 Long term (current) use of 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; Z79.82 Long term (current) use of aspirin
CPT/HCPCS: 96365; 93005; 85025; 80048; 36415; 86900; 83735; 86850; 85610; 86901; 80076; 84484; 83880; 71045; 96375; 99285; 96366; 36430; U0003; C9113; J2270; P9016 ×2; J7050 ×3; J2405